=== PATIENT | female | born 1950 | race Caucasian/White ===

== ENCOUNTER 2021-01-30 08:46 | Inpatient (IN) | payer MEDICARE, MEDICAID, SELFPAY ==
[2021-01-30] VITALS (13 sets, daily range): BP systolic 92–141; BP diastolic 58–91; PULSE 64–98; RESP 14–26; TEMP 36.6–37.2; O2SAT 89–100; BMI 25.0
--- NOTE | ~2021-01-30 | XR_ITS ---
EXAMINATION: XR CHEST CLINICAL INFORMATION: Hypoxia COMPARISON: Previous chest x-rays most recent 02/09/2021 TECHNIQUE: Frontal view of the chest was obtained. FINDINGS: The cardiac silhouette is slightly enlarged. There is elevation of the right hemidiaphragm. There is loss of the left hemidiaphragm suggestive of increasing left lower lobe atelectasis or consolidation. There are new increased markings in the right perihilar region questionable for right-sided central infiltrate as well. There may be small pleural effusions. There is no pneumothorax. There are degenerative changes of diagnosis of the spine. XR/XR chest 1V IMPRESSION: Left lower lobe atelectasis/consolidation. Elevated right hemidiaphragm and right perihilar infiltrate.
--- NOTE | ~2021-01-30 | XR_ITS ---
EXAMINATION: XR CHEST CLINICAL INFORMATION: Hypoxic failure.. Change in respiratory status. COMPARISON: Chest 01/30/2021. TECHNIQUE: Frontal view of the chest was obtained. FINDINGS: The lungs are hypoexpanded with bibasilar patchy opacities, stable. The upper lungs are relatively clear. The heart size and pulmonary vascularity is normal. No gross acute bony abnormality seen. There is XR/XR chest 1V IMPRESSION: No change in bibasilar patchy opacities from previous exam.
--- NOTE | ~2021-01-30 | XR_ITS ---
EXAMINATION: XR CHEST CLINICAL INFORMATION: Shortness of breath. Covid positive. COMPARISON: None TECHNIQUE: AP portable view of the chest was obtained. FINDINGS: There appears to be bibasilar disease which may relate to atelectasis or pneumonitis. Heart normal size. No evidence of pulmonary edema. No pneumothorax. No significant pleural effusion appreciated. Status post decompressive surgery of the right clavicle. A 2 wire lead is seen overlying the upper mediastinum which may be related to temporary pacer or other overlying device. XR/XR chest 1V IMPRESSION: Bibasilar disease which may relate to atelectasis or pneumonitis.
--- NOTE | 2021-01-30 08:57 | ECG_ITS ---
Test Reason : shortness of breath Blood Pressure : / mmHG Vent. Rate : 093 BPM Atrial Rate : 093 BPM P-R Int : 144 ms QRS Dur : 088 ms QT Int : 376 ms P-R-T Axes : 065 -43 -21 degrees QTc Int : 467 ms Poor data quality Sinus rhythm Left axis deviation Abnormal ECG No previous ECGs available Referred By: Judi Menjivar Electronically Signed By:Thang Mckeon
[2021-01-30 09:08] LABS: Glucose, Whole Blood 70 mg/dL (60-115)
--- NOTE | 2021-01-30 09:10 | ED.SOB ---
HPI - SOB/Dyspnea General Chief Complaint: Dyspnea Stated Complaint: +COVID,LOW O2 SAT @ 50%,ON BIPAP @ 58 [facility] Time Seen by Provider: 01/30/21 08:56 Source: EMS Mode of arrival: EMS Limitations: altered mental status (respiratory distress) History of Present Illness HPI Narrative: 70 yo female from [facility] hx of PE on eliquis, alcohol buase, opiate dependence on multiple sedating medications including benzos, methadone, PRN oxycodone 911 was called for unresponsive person. Apparently there was a case of COVID at [facility] so Edilia was tested and asymptomatic she was positive on 01/25. This morning she was found unresponsive EMS noted saturations in the 60s. Placed on bipap and given duoneb en route she did improve en route J+J vaccine 08/29/20 MD elicited complaint: shortness of breath (AMS) Pertinent past history: PE Onset (ago): unknown Context: recent illness (COVID positive 01/28) Timing: improved Severity: severe Relieving factors: oxygen Associated symptoms: cough Treatment prior to arrival: oxygen (bipap en route) and bronchodilator Related Data Home Medications Medication Instructions Recorded Confirmed acetaminophen 325 mg tablet 650 mg PO Q6H PRN 01/30/21 01/30/21 albuterol sulfate 90 mcg/actuation 2 puff INHALATION Q4-6H PRN 01/30/21 01/30/21 aerosol inhaler alprazolam 0.5 mg tablet 0.5 mg PO Q8H PRN 01/30/21 01/30/21 aluminum-mag hydroxide-simethicone 30 ml PO Q4H PRN 01/30/21 01/30/21 200 mg-200 mg-20 mg/5 mL oral susp apixaban 5 mg tablet 5 mg PO BID 01/30/21 01/30/21 buspirone 5 mg tablet 5 mg PO TID 01/30/21 01/30/21 collagenase clostridium histo. 250 1 appl TOPICAL BEDTIME 01/30/21 01/30/21 unit/gram topical ointment (Santyl) duloxetine 60 mg capsule,delayed 60 mg PO DAILY 01/30/21 01/30/21 release gabapentin 100 mg capsule 500 mg PO TID 01/30/21 01/30/21 lamotrigine 100 mg tablet 100 mg PO BEDTIME 01/30/21 01/30/21 levothyroxine 50 mcg tablet 50 mcg PO DAILY@0600 01/30/21 01/30/21 lisinopril 5 mg tablet 2.5 mg PO DAILY 01/30/21 01/30/21 methadone 10 mg tablet 10 mg PO BID 01/30/21 01/30/21 methadone 10 mg tablet 10 mg PO DAILY PRN 01/30/21 01/30/21 mirtazapine 15 mg tablet (Remeron) 15 mg PO BEDTIME 01/30/21 01/30/21 oxycodone 5 mg tablet 5 mg PO Q6H PRN 01/30/21 01/30/21 polyethylene glycol 3350 17 gram 17 g PO DAILY 01/30/21 01/30/21 oral powder packet (Miralax) risperidone 2 mg tablet 2 mg PO BID 01/30/21 01/30/21 sennosides 8.6 mg tablet (senna) 17.2 mg PO DAILY 01/30/21 01/30/21 tiotropium bromide 2.5 2 puff INHALATION DAILY 01/30/21 01/30/21 mcg/actuation mist for inhalation (Spiriva Respimat) Allergies Allergy/AdvReac Type Severity Reaction Status Date / Time Unable to Assess Allergy Verified 01/30/21 08:57 Review of Systems Review of Systems: ROS unable to be obtained due to confusion and respiratory distress [facility] Past Medical History Source: nursing notes reviewed Medical History (Updated 01/30/21 @ 10:31 by Judi Menjivar DO) Alcoholism Falls Opiate dependence Pulmonary embolus Social History Social History (Updated 01/30/21 @ 09:14 by Judi Menjivar DO) Patient Tobacco Use Status: Former Tobacco user Use of substances other than those prescribed or required for medical reasons: No Advance Directives: No Advance Directives Information Provided: No Physical Exam Vital Signs: Vital Signs: Last Vital Signs Temp 97.9 F 01/30/21 10:01 Pulse 86 01/30/21 10:01 Resp 14 01/30/21 10:01 BP 141/82 H 01/30/21 10:01 Pulse Ox 98 01/30/21 10:01 BMI result Body Mass Index 25.0 Appearance: Alert. Oriented X2. Moderate acute distress. Eyes: Pupils equal, round and reactive to light. ENT: Pharynx normal. Neck: Normal inspection. Neck supple. CVS: Normal heart rate and rhythm. Pulses normal. Respiratory: Moderate respiratory distress - poor inspiratory effort. Breath sounds diminished and coarse throughout Abdomen: Soft and nontender. Skin: Skin warm and cool pale skin color. Normal skin turgor. Extremities: No lower extremity edema. No calf ttp Neuro: Oriented X 2. No motor deficit. No sensory deficit. Course Course Course Narrative: on hiflo at 10am will continue to reassess 100% patient looks much better at this time MDM - SOB/Dyspnea MDM Narrative Medical decision making narrative: 70 yo female with hx of ETOH abuse, opiate abuse, fall risks, ulcers, from [facility] - who reports they had some cases of COVID patient was asymptomatic swabbed on 01/25 found to be + this AM EMS called for unresponsive person - sats in 60s, placed on bipap improved en route she is full code, already on eliquis for PE, I do not see any other information in chart - records being requested - at this time labs, cultures, IV steroids, nebs, continued bipap will attempt hiflo if possible, CXR, EKG. Planned admit Lab Data Result diagrams: 01/30/21 09:19 01/30/21 09:18 Labs: Lab Results 01/30/21 01/30/21 01/30/21 Range/Units 08:52 09:18 09:18 WBC (4.8-10.8) X10*3/uL RBC (4.20-5.50) X10*6/uL Hgb (12.0-16.0) g/dl Hct (37.0-47.0) % MCV (80.0-98.0) fL MCH (27.0-33.0) pg MCHC (31.0-35.0) g/dl RDW (11.0-16.0) % Plt Count (160-400) X10*3/uL MPV (9.4-12.3) fL Immature Gran % (Auto) (0.0-0.4) % Neut % (Auto) (45-73) % Lymph % (Auto) (20-40) % [place] % (Auto) (2-11) % Eos % (Auto) (0-4) % Baso % (Auto) (0-2) % Lymph # (Auto) (1.2-4.9) X10*3/uL [place] # (Auto) (0.1-1.2) X10*3/uL Eos # (Auto) (0.0-0.4) X10*3/uL Baso # (Auto) (0.0-0.2) X10*3/uL Abs Immat Gran (auto) (0.00-0.03) X10*3/uL Absolute Neuts (auto) (2.0-8.3) x10*3/uL Absolute Nucleated RBC (0.0-0.012) X10*3/uL Nucleated RBC % (auto) (0.0-0.2) /100WBC PT (9.9-13.0) SEC INR (0.9-1.1) APTT (24.1-38.0) SEC D-Dimer High Sensitivty NG/ML VBG pH (7.32-7.43) VBG pCO2 mmHg VBG pO2 mmHg VBG HCO3 (22-26) mmol/L VBG O2 Saturation % VBG Base Excess mmol/L Sodium 146 H (135-145) mmol/L Potassium 4.4 (3.3-5.1) mmol/L Chloride 107 (96-108) mmol/L Carbon Dioxide 30 H (22-29) mmol/L Anion Gap 13 (12-20) BUN 18 H (9-16) mg/dL Creatinine 0.69 (0.5-1.4) mg/dL Estim Creat Clear Calc 69.2 Estimated GFR > 60 POC Glucose 70 (60-115) mg/dL Random Glucose 103 (60-115) mg/dL Lactic Acid 0.9 (0.5-2.0) mmol/L Calcium 8.1 L (8.4-10.2) mg/dL Magnesium 1.8 (1.6-2.6) mg/dL Ferritin 139 (10-250) ng/mL Total Bilirubin < 0.2 (0.0-1.0) mg/dL Direct Bilirubin < 0.2 (0.0-0.5) mg/dL AST 70 H (5-31) U/L ALT 29 (0-31) U/L Alkaline Phosphatase 80 (39-117) U/L Lactate Dehydrogenase 489 H (122-220) U/L Total Creatine Kinase 1192 H (26-140) U/L Troponin I High Sens (<3.5-17.0) ng/L C-Reactive Protein 6.78 H (< or = 0.50) mg/dL B-Natriuretic Peptide (<100) pg/mL Total Protein 5.6 L (6.5-8.0) g/dL Albumin 2.8 L (3.5-5.0) g/dL Lipase < 4 L (8-78) U/L Procalcitonin ng/mL COVID-19 (SILVIA) (Negative) COVID-19 Clin Com 01/30/21 01/30/21 01/30/21 Range/Units 09:18 09:18 09:18 WBC (4.8-10.8) X10*3/uL RBC (4.20-5.50) X10*6/uL Hgb (12.0-16.0) g/dl Hct (37.0-47.0) % MCV (80.0-98.0) fL MCH (27.0-33.0) pg MCHC (31.0-35.0) g/dl RDW (11.0-16.0) % Plt Count (160-400) X10*3/uL MPV (9.4-12.3) fL Immature Gran % (Auto) (0.0-0.4) % Neut % (Auto) (45-73) % Lymph % (Auto) (20-40) % [place] % (Auto) (2-11) % Eos % (Auto) (0-4) % Baso % (Auto) (0-2) % Lymph # (Auto) (1.2-4.9) X10*3/uL [place] # (Auto) (0.1-1.2) X10*3/uL Eos # (Auto) (0.0-0.4) X10*3/uL Baso # (Auto) (0.0-0.2) X10*3/uL Abs Immat Gran (auto) (0.00-0.03) X10*3/uL Absolute Neuts (auto) (2.0-8.3) x10*3/uL Absolute Nucleated RBC (0.0-0.012) X10*3/uL Nucleated RBC % (auto) (0.0-0.2) /100WBC PT 14.8 H (9.9-13.0) SEC INR 1.3 H (0.9-1.1) APTT 37.2 (24.1-38.0) SEC D-Dimer High Sensitivty 447 NG/ML VBG pH (7.32-7.43) VBG pCO2 mmHg VBG pO2 mmHg VBG HCO3 (22-26) mmol/L VBG O2 Saturation % VBG Base Excess mmol/L Sodium (135-145) mmol/L Potassium (3.3-5.1) mmol/L Chloride (96-108) mmol/L Carbon Dioxide (22-29) mmol/L Anion Gap (12-20) BUN (9-16) mg/dL Creatinine (0.5-1.4) mg/dL Estim Creat Clear Calc Estimated GFR POC Glucose (60-115) mg/dL Random Glucose (60-115) mg/dL Lactic Acid (0.5-2.0) mmol/L Calcium (8.4-10.2) mg/dL Magnesium (1.6-2.6) mg/dL Ferritin (10-250) ng/mL Total Bilirubin (0.0-1.0) mg/dL Direct Bilirubin (0.0-0.5) mg/dL AST (5-31) U/L ALT (0-31) U/L Alkaline Phosphatase (39-117) U/L Lactate Dehydrogenase (122-220) U/L Total Creatine Kinase (26-140) U/L Troponin I High Sens 184.9 H* (<3.5-17.0) ng/L C-Reactive Protein (< or = 0.50) mg/dL B-Natriuretic Peptide 163 H (<100) pg/mL Total Protein (6.5-8.0) g/dL Albumin (3.5-5.0) g/dL Lipase (8-78) U/L Procalcitonin ng/mL COVID-19 (SILVIA) Positive A (Negative) COVID-19 Clin Com See Note 01/30/21 01/30/21 01/30/21 Range/Units 09:18 09:19 10:22 WBC 5.7 (4.8-10.8) X10*3/uL RBC 4.22 (4.20-5.50) X10*6/uL Hgb 10.9 L (12.0-16.0) g/dl Hct 37.2 (37.0-47.0) % MCV 88.2 (80.0-98.0) fL MCH 25.8 L (27.0-33.0) pg MCHC 29.3 L (31.0-35.0) g/dl RDW 19.9 H (11.0-16.0) % Plt Count 152 L (160-400) X10*3/uL MPV 9.6 (9.4-12.3) fL Immature Gran % (Auto) 0.4 (0.0-0.4) % Neut % (Auto) 74.9 H (45-73) % Lymph % (Auto) 15.3 L (20-40) % [place] % (Auto) 9.2 (2-11) % Eos % (Auto) 0.0 (0-4) % Baso % (Auto) 0.2 (0-2) % Lymph # (Auto) 0.9 L (1.2-4.9) X10*3/uL [place] # (Auto) 0.5 (0.1-1.2) X10*3/uL Eos # (Auto) 0.0 (0.0-0.4) X10*3/uL Baso # (Auto) 0.0 (0.0-0.2) X10*3/uL Abs Immat Gran (auto) 0.02 (0.00-0.03) X10*3/uL Absolute Neuts (auto) 4.3 (2.0-8.3) x10*3/uL Absolute Nucleated RBC 0.000 (0.0-0.012) X10*3/uL Nucleated RBC % (auto) 0.0 (0.0-0.2) /100WBC PT (9.9-13.0) SEC INR (0.9-1.1) APTT (24.1-38.0) SEC D-Dimer High Sensitivty NG/ML VBG pH 7.46 H (7.32-7.43) VBG pCO2 48 mmHg VBG pO2 69 mmHg VBG HCO3 34 H (22-26) mmol/L VBG O2 Saturation 90.0 % VBG Base Excess 9.6 mmol/L Sodium (135-145) mmol/L Potassium (3.3-5.1) mmol/L Chloride (96-108) mmol/L Carbon Dioxide (22-29) mmol/L Anion Gap (12-20) BUN (9-16) mg/dL Creatinine (0.5-1.4) mg/dL Estim Creat Clear Calc Estimated GFR POC Glucose (60-115) mg/dL Random Glucose (60-115) mg/dL Lactic Acid (0.5-2.0) mmol/L Calcium (8.4-10.2) mg/dL Magnesium (1.6-2.6) mg/dL Ferritin (10-250) ng/mL Total Bilirubin (0.0-1.0) mg/dL Direct Bilirubin (0.0-0.5) mg/dL AST (5-31) U/L ALT (0-31) U/L Alkaline Phosphatase (39-117) U/L Lactate Dehydrogenase (122-220) U/L Total Creatine Kinase (26-140) U/L Troponin I High Sens (<3.5-17.0) ng/L C-Reactive Protein (< or = 0.50) mg/dL B-Natriuretic Peptide (<100) pg/mL Total Protein (6.5-8.0) g/dL Albumin (3.5-5.0) g/dL Lipase (8-78) U/L Procalcitonin 0.09 ng/mL COVID-19 (SILVIA) (Negative) COVID-19 Clin Com ECG Data Attestation: I personally reviewed and interpreted this ECG as follows: ECG interpretation date: 01/30/21 ECG interpretation time: 09:11 Interpretation: Rate: 93 Rhythm: NSR [place]: left Normal P waves. Normal ESTELA. Normal QRS complex. ST T wave : nonspecific, no STEPHANIE, but noted artifact qTC: normal prior studies: none The study has been interpreted contemporaneously by me. . Critical Care Time Critical Care Time Critical Care Time: Yes Total Critical Care Time: 60 Attestation: bipap, hiflo, review of records I attest to this time spent taking care of the patient Discharge Plan Discharge Clinical Impression: Pneumonia due to 2019-nCoV, Hypoxia, Respiratory failure, Elevated troponin Patient Disposition: Admitted As Inpatient
[2021-01-30] MEDS: Albuterol Sulfate (0.083%) 2.5 MG/3 ML VIAL.NEB INHALE (09:12)
--- NOTE | 2021-01-30 09:23 | MHC.CM.ED ---
Patient came to ER from [facility] due to resp distress. Patient was found to be Covid positive on 01/25. Patient is a full code. There was 1 resident and 1 employee that tested positive for Covid. Patient was screened for Covid due to protocol, not symptoms. Dr Menjivar aware. Continue to monitor for d/c needs.
[2021-01-30 09:29] LABS: MANUAL DIFF FLAG NO
[2021-01-30 09:32] LABS: Basophils Percent Auto 0.2 % (0-2); Hematocrit 37.2 % (37.0-47.0); Hemoglobin 10.9 g/dl (12.0-16.0); Imm Gran Abs Auto 0.02 X10*3/uL (0.00-0.03); Imm Gran Pct Auto 0.4 % (0.0-0.4); Lymphocytes Absolute Auto 0.9 X10*3/uL (1.2-4.9); Lymphocytes Percent Auto 15.3 % (20-40); Mean Corpuscular HGB Conc 29.3 g/dl (31.0-35.0); Mean Corpuscular Hemoglobin 25.8 pg (27.0-33.0); Mean Corpuscular Volume 88.2 fL (80.0-98.0); Mean Platelet Volume 9.6 fL (9.4-12.3); Monocytes Absolute Auto 0.5 X10*3/uL (0.1-1.2); Monocytes Percent Auto 9.2 % (2-11); Neutrophils Absolute Auto 4.3 x10*3/uL (2.0-8.3); Neutrophils Percent Auto 74.9 % (45-73); Platelet Count 152 X10*3/uL (160-400); Red Blood Count 4.22 X10*6/uL (4.20-5.50); Red Cell Distribution Width 19.9 % (11.0-16.0); White Blood Count 5.7 X10*3/uL (4.8-10.8)
--- NOTE | 2021-01-30 09:32 | PHA.MEDREC ---
Pharmacy Consult ? Medication Reconciliation Pharmacy has completed the medication reconciliation. Patient came from [facility] with a medication list. Lizbeth Schmidt, BlossomD
[2021-01-30] MEDS: dexAMETHasone sod phosphate 4 MG/ML VIAL 6 MG IVPUSH (09:36)
[2021-01-30 09:39] LABS: INTERNATIONAL NORM RATIO 1.3 (0.9-1.1); Lactic Acid 0.9 mmol/L (0.5-2.0); Prothrombin Time 14.8 SEC (9.9-13.0)
[2021-01-30 09:40] LABS: COVID-19 Test Positive (Negative); IDNOW Serial# 9DD0AD1C
[2021-01-30 09:41] LABS: D Dimer High Sensitivity 447 NG/ML
[2021-01-30 09:42] LABS: Partial Thromboplastin Time 37.2 SEC (24.1-38.0)
[2021-01-30 09:53] LABS: Alanine Aminotransferase 29 U/L (0-31); Albumin Level 2.8 g/dL (3.5-5.0); Alkaline Phosphatase 80 U/L (39-117); Anion Gap 13 (12-20); Aspartate Amino Transferase 70 U/L (5-31); Bilirubin Direct < 0.2 mg/dL (0.0-0.5); Bilirubin Total < 0.2 mg/dL (0.0-1.0); Blood Urea Nitrogen 18 mg/dL (9-16); C Reactive Protein 6.78 mg/dL (< or = 0.50); Calcium 8.1 mg/dL (8.4-10.2); Carbon Dioxide 30 mmol/L (22-29); Chloride 107 mmol/L (96-108); Creatinine Clr Calc Pharmacy 69.2; Estimated Glomerular Filt Rate > 60; Glucose Random 103 mg/dL (60-115); Lactate Dehydrogenase 489 U/L (122-220); Lipase < 4 U/L (8-78); Magnesium 1.8 mg/dL (1.6-2.6); Potassium 4.4 mmol/L (3.3-5.1); Sodium 146 mmol/L (135-145); Total Protein 5.6 g/dL (6.5-8.0)
[2021-01-30 09:54] LABS: B Type Natriuretic Peptide 163 pg/mL (<100); Troponin-I High Sensitivity 184.9 ng/L (<3.5-17.0)
[2021-01-30] MEDS: cefEPime HCl 2 GM in 0.9 % Sodium Chloride 50 ML IV (09:57)
[2021-01-30 10:02] LABS: Procalcitonin 0.09 ng/mL
[2021-01-30 10:03] LABS: Ferritin 139 ng/mL (10-250)
[2021-01-30 10:27] LABS: Venous Blood Gas Refer to POC result
[2021-01-30 10:28] LABS: VBG Base Excess 9.6 mmol/L; VBG HCO3 34 mmol/L (22-26); VBG pCO2 48 mmHg; VBG pH 7.46 (7.32-7.43); VBG pO2 69 mmHg
--- NOTE | 2021-01-30 15:12 | PM.IMHP ---
History of Present Illness Date of Service: 01/30/21 Chief Complaint: noted hypoxia 70F from [facility] was sent in after being found unresponsive. she had tested positive for covid on 01/25/21. at that time she was asymptomatic, on day of presentation she was noted to be unresponsive, EMS noted saturations in the 60s, she had been placed on bipap and improved. patient herself does have dementia and is a poor historian but denies any shortness of breath at this time. she knows where she is, but is unaware of why she is here. she was then transitioned from bipap to high flow and is now saturating 100%. Review of Systems Review of Systems: Constitutional: Denies fever, denies Chills Eyes: denies blurry vision ENT: denies sore throat CVS: denies chest pain Respiratory: Denies dyspnea GI: no abdominal pain : denies dysuria MSK: denies neck pain Skin: denies rash Neuro: denies specific motor weakness Psych: denies suicidal ideation Endocrine: denies heat/cold intolerance Hematologic: denies easy bleeding Allergy: denies hives [facility] Medical History (Updated 01/30/21 @ 14:01 by Toño Vargas MD) Alcoholism Falls Opiate dependence Pulmonary embolus Social History (Updated 01/30/21 @ 09:14 by Judi Menjivar DO) Patient Tobacco Use Status: Former Tobacco user Use of substances other than those prescribed or required for medical reasons: No Advance Directives: No Advance Directives Information Provided: No Meds Allergies Allergy/AdvReac Type Severity Reaction Status Date / Time Unable to Assess Allergy Verified 01/30/21 08:57 Active Medications: Current Medications Al Hydroxide/Mg Hydroxide (Magnesium Hydrox/Alum Hydrox 30 Ml Oral.Susp) 30 ml PO Q4H PRN PRN Reason: GERD Alprazolam (Alprazolam 0.5 Mg Tablet) 0.5 mg PO Q8H PRN PRN Reason: Anxiety Apixaban (Apixaban 5 Mg Tablet) 5 mg PO BID [facility] Buspirone HCl (Buspirone Hcl 5 Mg Tablet) 5 mg PO TID [facility] Collagenase (Collagenase Clostridium Hist. 30 Gm Tube) 1 appl TOPICAL BEDTIME [facility]; Protocol Dexamethasone Sodium Phosphate (Dexamethasone Sod Phosphate 4 Mg/Ml Vial) 6 mg IVPUSH DAILY [facility] Duloxetine HCl (Duloxetine Hcl 60 Mg Capsule.Dr) 60 mg PO DAILY [facility] Gabapentin (Gabapentin 100 Mg Capsule) 500 mg PO TID [facility] Lamotrigine (Lamotrigine 100 Mg Tablet) 100 mg PO BEDTIME [facility] Levothyroxine Sodium (Levothyroxine Sodium 50 Mcg Tablet) 50 mcg PO DAILY@0600 [facility] Lisinopril (Lisinopril 2.5 Mg Tablet) 2.5 mg PO DAILY [facility]; Protocol Methadone HCl (Methadone Hcl 10 Mg Tablet) 10 mg PO DAILY PRN PRN Reason: OPIOID ADDICATION Methadone HCl (Methadone Hcl 10 Mg Tablet) 10 mg PO BID [facility] Mirtazapine (Mirtazapine 15 Mg Tablet) 15 mg PO BEDTIME [facility] Non-Formulary Medication (Tiotropium [place] [Spiriva Respimat]) 2 puff INHALE DAILY [facility] Pharmacy Consult (Consult Rx Perform Med Rec) 1 each MISCELLANE ONCE PRN PRN Reason: Consult order Polyethylene Glycol (Polyethylene Glycol 3350 17 Gm Powd.Pack) 17 gm PO DAILY [facility] Risperidone (Risperidone 2 Mg Tablet) 2 mg PO BID [facility] Senna (Sennosides 8.6 Mg Tablet) 17.2 mg PO DAILY [facility] Home Medications Medication Instructions Recorded Confirmed Last Taken Type acetaminophen 325 mg tablet 650 mg PO Q6H PRN 01/30/21 01/30/21 Unknown History albuterol sulfate 90 mcg/actuation 2 puff INHALATION Q4-6H PRN 01/30/21 01/30/21 Unknown History aerosol inhaler alprazolam 0.5 mg tablet 0.5 mg PO Q8H PRN 01/30/21 01/30/21 Unknown History aluminum-mag hydroxide-simethicone 30 ml PO Q4H PRN 01/30/21 01/30/21 Unknown History 200 mg-200 mg-20 mg/5 mL oral susp apixaban 5 mg tablet 5 mg PO BID 01/30/21 01/30/21 Unknown History buspirone 5 mg tablet 5 mg PO TID 01/30/21 01/30/21 Unknown History collagenase clostridium histo. 250 1 appl TOPICAL BEDTIME 01/30/21 01/30/21 Unknown History unit/gram topical ointment (Santyl) duloxetine 60 mg capsule,delayed 60 mg PO DAILY 01/30/21 01/30/21 Unknown History release gabapentin 100 mg capsule 500 mg PO TID 01/30/21 01/30/21 Unknown History lamotrigine 100 mg tablet 100 mg PO BEDTIME 01/30/21 01/30/21 Unknown History levothyroxine 50 mcg tablet 50 mcg PO DAILY@0600 01/30/21 01/30/21 Unknown History lisinopril 5 mg tablet 2.5 mg PO DAILY 01/30/21 01/30/21 Unknown History methadone 10 mg tablet 10 mg PO BID 01/30/21 01/30/21 01/29/21 21:00 History methadone 10 mg tablet 10 mg PO DAILY PRN 01/30/21 01/30/21 Unknown History mirtazapine 15 mg tablet (Remeron) 15 mg PO BEDTIME 01/30/21 01/30/21 Unknown History oxycodone 5 mg tablet 5 mg PO Q6H PRN 01/30/21 01/30/21 Unknown History polyethylene glycol 3350 17 gram 17 g PO DAILY 01/30/21 01/30/21 Unknown History oral powder packet (Miralax) risperidone 2 mg tablet 2 mg PO BID 01/30/21 01/30/21 Unknown History sennosides 8.6 mg tablet (senna) 17.2 mg PO DAILY 01/30/21 01/30/21 Unknown History tiotropium bromide 2.5 2 puff INHALATION DAILY 01/30/21 01/30/21 Unknown History mcg/actuation mist for inhalation (Spiriva Respimat) Physical Exam Vital Signs and Narrative: Vital Signs: Last Vital Signs Temp 98.7 F 01/30/21 14:42 Pulse 84 01/30/21 14:42 Resp 18 01/30/21 15:01 BP 92/58 L 01/30/21 14:42 Pulse Ox 100 01/30/21 14:42 BMI result Body Mass Index 25.0 General: no acute distress HEENT: atraumatic Neck: normal to visual inspection CVS: S1, S2, RRR Resp: diminished Chest: non tender GI: soft, non tender, non distended : no CVA tenderness Skin: right heel pressure ulcer (see RN pictures) Extremities: no edema Neuro: Oriented X3, but poor memory and insight, no focal deficit Psych: cooperative Results Labs CBC and Chem 7: 01/30/21 09:19 01/30/21 09:18 Labs: Laboratory Results - last 24 hr 12/10/1301/30/21 01/30/21 08:52 09:18 09:18 MCV MCH MCHC RDW Plt Count MPV Immature Gran % (Auto) Neut % (Auto) Lymph % (Auto) [place] % (Auto) Eos % (Auto) Baso % (Auto) Lymph # (Auto) [place] # (Auto) Eos # (Auto) Baso # (Auto) Abs Immat Gran (auto) Absolute Neuts (auto) Absolute Nucleated RBC Nucleated RBC % (auto) PT INR APTT D-Dimer High Sensitivty VBG pH VBG pCO2 VBG pO2 VBG HCO3 VBG O2 Saturation VBG Base Excess Anion Gap 13 Estim Creat Clear Calc 69.2 Estimated GFR > 60 POC Glucose 70 Random Glucose 103 Lactic Acid 0.9 Calcium 8.1 L Magnesium 1.8 Ferritin 139 Total Bilirubin < 0.2 Direct Bilirubin < 0.2 AST 70 H ALT 29 Alkaline Phosphatase 80 Lactate Dehydrogenase 489 H Total Creatine Kinase 1192 H Troponin I High Sens C-Reactive Protein 6.78 H B-Natriuretic Peptide Total Protein 5.6 L Albumin 2.8 L Lipase < 4 L Procalcitonin COVID-19 (SILVIA) COVID-19 [email or web address] 01/30/21 01/30/21 01/30/21 09:18 09:18 09:18 MCV MCH MCHC RDW Plt Count MPV Immature Gran % (Auto) Neut % (Auto) Lymph % (Auto) [place] % (Auto) Eos % (Auto) Baso % (Auto) Lymph # (Auto) [place] # (Auto) Eos # (Auto) Baso # (Auto) Abs Immat Gran (auto) Absolute Neuts (auto) Absolute Nucleated RBC Nucleated RBC % (auto) PT 14.8 H INR 1.3 H APTT 37.2 D-Dimer High Sensitivty 447 VBG pH VBG pCO2 VBG pO2 VBG HCO3 VBG O2 Saturation VBG Base Excess Anion Gap Estim Creat Clear Calc Estimated GFR POC Glucose Random Glucose Lactic Acid Calcium Magnesium Ferritin Total Bilirubin Direct Bilirubin AST ALT Alkaline Phosphatase Lactate Dehydrogenase Total Creatine Kinase Troponin I High Sens 184.9 H* C-Reactive Protein B-Natriuretic Peptide 163 H Total Protein Albumin Lipase Procalcitonin COVID-19 (SILVIA) Positive A COVID-19 Clin Com See Note 01/30/21 01/30/21 01/30/21 09:18 09:19 10:22 MCV 88.2 MCH 25.8 L MCHC 29.3 L RDW 19.9 H Plt Count 152 L MPV 9.6 Immature Gran % (Auto) 0.4 Neut % (Auto) 74.9 H Lymph % (Auto) 15.3 L [place] % (Auto) 9.2 Eos % (Auto) 0.0 Baso % (Auto) 0.2 Lymph # (Auto) 0.9 L [place] # (Auto) 0.5 Eos # (Auto) 0.0 Baso # (Auto) 0.0 Abs Immat Gran (auto) 0.02 Absolute Neuts (auto) 4.3 Absolute Nucleated RBC 0.000 Nucleated RBC % (auto) 0.0 PT INR APTT D-Dimer High Sensitivty VBG pH 7.46 H VBG pCO2 48 VBG pO2 69 VBG HCO3 34 H VBG O2 Saturation 90.0 VBG Base Excess 9.6 Anion Gap Estim Creat Clear Calc Estimated GFR POC Glucose Random Glucose Lactic Acid Calcium Magnesium Ferritin Total Bilirubin Direct Bilirubin AST ALT Alkaline Phosphatase Lactate Dehydrogenase Total Creatine Kinase Troponin I High Sens C-Reactive Protein B-Natriuretic Peptide Total Protein Albumin Lipase Procalcitonin 0.09 COVID-19 (SILVIA) COVID-19 Clin Com Imaging Radiologist's Impressions: Impressions Chest X-Ray 01/30/21 09:40 IMPRESSION: Bibasilar disease which may relate to atelectasis or pneumonitis. Assessment and Plan (1) Pneumonia due to 2019-nCoV: Status: Acute 70F presented with sob acute hypoxic respiratory failure and metabolic encephalopathy due to covid pneumonia decadron, wean o2, monitor inflammatory labs dementia, likely chronic alochol related at baseline opiate dependence methadone history of pulmonary embolism eliquis hypothyroid synthroid htn lisinopril Quality Stroke Does the patient have a stroke diagnosis?: No VTE Prior VTE?: Yes VTE Risk Level:: Medical - moderate - high VTE Device Contraindication: Treatment Not Indicated VTE Drug Contraindication: N/A - Med Ordered
[2021-01-30] MEDS: 0.9 % Sodium Chloride Flush 3 ML SYRINGE IVFLUSH (16:19)
[2021-01-30] MEDS: lamoTRIgine 100 MG TABLET PO (21:57)
[2021-01-30] MEDS: busPIRone HCl 5 MG TABLET PO (21:58)
[2021-01-30] MEDS: Apixaban 5 MG TABLET PO (21:58)
[2021-01-30] MEDS: risperiDONE 2 MG TABLET PO (21:59)
[2021-01-30] MEDS: Gabapentin 100 MG CAPSULE 500 MG PO (22:00)
[2021-01-30] MEDS: Mirtazapine 15 MG TABLET PO (22:00)
[2021-01-31] VITALS (14 sets, daily range): BP systolic 95–148; BP diastolic 54–86; PULSE 54–100; RESP 11–20; TEMP 35.5–36.6; O2SAT 86–100; BMI 19.8
[2021-01-31] MEDS: 0.9 % Sodium Chloride Flush 3 ML SYRINGE IVFLUSH ×3 (01:22→21:59)
[2021-01-31 06:24] LABS: Hematocrit 34.2 % (37.0-47.0); Hemoglobin 9.8 g/dl (12.0-16.0); Mean Corpuscular HGB Conc 28.7 g/dl (31.0-35.0); Mean Corpuscular Hemoglobin 25.5 pg (27.0-33.0); Mean Corpuscular Volume 89.1 fL (80.0-98.0); Mean Platelet Volume 9.8 fL (9.4-12.3); Platelet Count 142 X10*3/uL (160-400); Red Blood Count 3.84 X10*6/uL (4.20-5.50); Red Cell Distribution Width 19.5 % (11.0-16.0); White Blood Count 3.6 X10*3/uL (4.8-10.8)
[2021-01-31 06:39] LABS: Anion Gap 10 (12-20); Blood Urea Nitrogen 17 mg/dL (9-16); C Reactive Protein 7.21 mg/dL (< or = 0.50); Calcium 8.2 mg/dL (8.4-10.2); Carbon Dioxide 35 mmol/L (22-29); Chloride 106 mmol/L (96-108); Creatinine Clr Calc Pharmacy 78.3; Estimated Glomerular Filt Rate > 60; Glucose Fasting 112 mg/dL (60-99); Lactate Dehydrogenase 406 U/L (122-220); Potassium 4.3 mmol/L (3.3-5.1); Sodium 147 mmol/L (135-145)
[2021-01-31 06:59] LABS: D Dimer High Sensitivity 279 NG/ML
--- NOTE | 2021-01-31 09:27 | MHC.CM.PN ---
IMM 01/31/21 Female 70 DX COVID J+J VAX 08/29/20 She lives @ [facility]. Her nephew is her HCP and Guardian. She is alert oriented and forgetful. She is dependent with care. She uses a WC for safety, fall prevention. DP return to [facility] via BLS.
[2021-01-31] MEDS: Dextrose 5 % 1,000 ML 80 ML IVCONT (09:51)
[2021-01-31] MEDS: DULoxetine HCl 60 MG CAPSULE.DR PO (09:52)
[2021-01-31] MEDS: Gabapentin 100 MG CAPSULE 500 MG PO ×3 (09:52→21:59)
[2021-01-31] MEDS: dexAMETHasone sod phosphate 4 MG/ML VIAL 6 MG IVPUSH (09:52)
[2021-01-31] MEDS: risperiDONE 2 MG TABLET PO ×2 (09:52→21:58)
[2021-01-31] MEDS: Sennosides 8.6 MG TABLET 17.2 MG PO (09:52)
[2021-01-31] MEDS: Apixaban 5 MG TABLET PO ×2 (09:52→21:58)
[2021-01-31] MEDS: methADONE HCl 20 MG/2 ML ORAL.CONC 10 MG PO ×2 (09:53→21:59)
[2021-01-31] MEDS: lisinopriL 2.5 MG TABLET PO (09:53)
[2021-01-31] MEDS: busPIRone HCl 5 MG TABLET PO ×3 (09:54→21:58)
--- NOTE | 2021-01-31 10:15 | PHA.PROG ---
Admission Date/Time: January 30, 2021 15:12 Indication: Weight in k.2 kg Adjusted body weight in Kg: [place] body weight in Kg: Obesity Dosing Indication % IBW: Serum Creatinine - Last 168 Hours 01/30/21 01/31/21 09:18 06:09 Creatinine 0.69 0.58 Estimated CrCl and GFR - Last 168 Hours 01/30/21 01/31/21 09:18 06:09 Estim Creat Clear Calc 69.2 78.3 Estimated GFR > 60 > 60 Vancomycin Loading Dose: 1250MG Current Vancomycin Dosing Regimen: 1000MG Q24H Vancomycin Monitoring using AUC goal of 400 - 600 range with trough as surrogate marker: AUC 463, TROUGH 13.5 Date and Time for next Vancomycin Level to be drawn: 02/02 @0900: Pharmacist Comments on Vancomycin Plan: Loading dose chosen to get patient to target AUC faster Vancomycin dosing will take advantage of [employer] as a clinical decision support tool that uses Bayesian modeling to calculate individual patient's pharmacokinetic parameters and forecast the patient's drug concentration time course with the target goal AUC 24 range of 400 - 600 mg/L/hr.
[2021-01-31] MEDS: vancomycin HCL 1,250 MG in 0.9 % Sodium Chloride 250 ML 166.67 MG IV (10:22)
--- NOTE | 2021-01-31 10:45 | P.PNIM_ITS ---
Subjective Subjective Date of Service: 01/31/21 Interval History: cc: ams, hypoxia interval history: sob, heel pain Cardiovascular Cardiovascular: Reports no additional cardiovascular complaints Respiratory Respiratory: Reports no additional respiratory complaints Physical Exam Vital Signs: Vital Signs: Last Vital Signs Temp 96 F L 01/31/21 07:06 Pulse 58 01/31/21 09:53 Resp 18 01/31/21 07:33 BP 122/71 01/31/21 09:53 Pulse Ox 91 L 01/31/21 07:06 BMI result Body Mass Index 19.8 General: AO X 3, anxious, frail Resp: Crackles bilateral, mild accessory muscles used CVS: S1,S2,RRR GI: soft, non tender, non distended Neuro: motor grossly intact, alert Psych: anxious, impaired insight, poor recall skin: right heel ulcer (present on admission) Objective Data Active Medications Al Hydroxide/Mg Hydroxide (Magnesium Hydrox/Alum Hydrox 30 Ml Oral.Susp) 30 ml PO Q4H PRN PRN Reason: GERD Alprazolam (Alprazolam 0.5 Mg Tablet) 0.5 mg PO Q8H PRN PRN Reason: Anxiety Apixaban (Apixaban 5 Mg Tablet) 5 mg PO BID [facility] Last Admin: 01/31/21 09:52 Dose: 5 mg Documented by: IRAJ Buspirone HCl (Buspirone Hcl 5 Mg Tablet) 5 mg PO TID [facility] Last Admin: 01/31/21 09:54 Dose: 5 mg Documented by: IRAJ Collagenase (Collagenase Clostridium Hist. 30 Gm Tube) 1 appl TOPICAL BEDTIME [facility]; Protocol Last Admin: 01/30/21 21:58 Dose: Not Given Documented by: HUMAIRA Non-Admin Reason: See Note Dexamethasone Sodium Phosphate (Dexamethasone Sod Phosphate 4 Mg/Ml Vial) 6 mg IVPUSH DAILY [facility] Last Admin: 01/31/21 09:52 Dose: 6 mg Documented by: IRAJ Duloxetine HCl (Duloxetine Hcl 60 Mg Capsule.) 60 mg PO DAILY [facility] Last Admin: 01/31/21 09:52 Dose: 60 mg Documented by: IRAJ Gabapentin (Gabapentin 100 Mg Capsule) 500 mg PO TID [facility] Last Admin: 01/31/21 09:52 Dose: 500 mg Documented by: IRAJ Dextrose (D5w) 1,000 mls @ 80 mls/hr IVCONT .[id number] [facility] Last Admin: 01/31/21 09:51 Dose: 80 mls/hr Documented by: IRAJ Vancomycin HCl 1,250 mg/ (Sodium Chloride) 250 mls @ 166.667 mls/hr IV ONCE ONE Stop: 01/31/21 12:29 Last Admin: 01/31/21 10:22 Dose: 166.67 mls/hr Documented by: IRAJ Vancomycin HCl 1,000 mg/ (Sodium Chloride) 270 mls @ 270 mls/hr IV Q24H [facility] Lamotrigine (Lamotrigine 100 Mg Tablet) 100 mg PO BEDTIME [facility] Last Admin: 01/30/21 21:57 Dose: 100 mg Documented by: HUMAIRA Levothyroxine Sodium (Levothyroxine Sodium 50 Mcg Tablet) 50 mcg PO DAILY@0600 [facility] Last Admin: 01/31/21 06:34 Dose: Not Given Documented by: ORLANDO Non-Admin Reason: too sleepy to swallow safely Lisinopril (Lisinopril 2.5 Mg Tablet) 2.5 mg PO DAILY [facility]; Protocol Last Admin: 01/31/21 09:53 Dose: 2.5 mg Documented by: IRAJ Methadone HCl (Methadone Hcl 20 Mg/2 Ml Oral.Conc) 10 mg PO DAILY PRN PRN Reason: OPIOID ADDICATION Methadone HCl (Methadone Hcl 20 Mg/2 Ml Oral.Conc) 10 mg PO BID [facility] Last Admin: 01/31/21 09:53 Dose: 10 mg Documented by: IRAJ Mirtazapine (Mirtazapine 15 Mg Tablet) 15 mg PO BEDTIME [facility] Last Admin: 01/30/21 22:00 Dose: 15 mg Documented by: HUMAIRA Pharmacy Consult (Consult Rx Perform Med Rec) 1 each MISCELLANE ONCE PRN PRN Reason: Consult order Pharmacy Consult (Consult Rx Vancomycin Dosing) 1 each MISCELLANE DAILY PRN PRN Reason: Consult order Polyethylene Glycol (Polyethylene Glycol 3350 17 Gm Powd.Pack) 17 gm PO DAILY [facility] Last Admin: 01/31/21 09:53 Dose: Not Given Documented by: IRAJ Non-Admin Reason: Patient Refused Risperidone (Risperidone 2 Mg Tablet) 2 mg PO BID [facility] Last Admin: 01/31/21 09:52 Dose: 2 mg Documented by: IRAJ Senna (Sennosides 8.6 Mg Tablet) 17.2 mg PO DAILY [facility] Last Admin: 01/31/21 09:52 Dose: 17.2 mg Documented by: IRAJ Sodium Chloride (0.9 % Sodium Chloride Flush 3 Ml Syringe) 3 ml IVFLUSH QSHIFT [facility] Last Admin: 01/31/21 09:51 Dose: 3 ml Documented by: IRAJ Tiotropium [place] (Tiotropium [place] 18 Mcg Cap.W.Dev) 2 puff INHALE RDAILY [facility] Last Admin: 01/31/21 07:28 Dose: Not Given Documented by: MIGDALIA Non-Admin Reason: Med Not Available Labs CBC & Chem 7: 01/31/21 06:09 01/31/21 06:09 Labs: Laboratory Results - last 24 hr 01/31/21 01/31/21 01/31/21 06:09 06:09 06:09 MCV 89.1 MCH 25.5 L MCHC 28.7 L RDW 19.5 H Plt Count 142 L MPV 9.8 Absolute Nucleated RBC 0.000 Nucleated RBC % (auto) 0.0 D-Dimer High Sensitivty 279 Anion Gap 10 L Estim Creat Clear Calc 78.3 Estimated GFR > 60 Fasting Glucose 112 H Calcium 8.2 L Lactate Dehydrogenase 406 H C-Reactive Protein 7.21 H Microbiology Microbiology Results: Microbiology 01/30/21 09:35 Blood Culture - Preliminary Blood - Venous Prelim: GPC Gram Stain only 01/30/21 09:18 Blood Culture - Preliminary Blood - Venous Prelim: GPC Gram Stain only Assessment and Plan (1) Pneumonia due to 2019-nCoV: Status: Acute Assessment and Plan: ?70F with known covid, found to be unresponsive, hypoxic, and painful right heel ulcer, now with GPC in blood acute hypoxic respiratory failure and metabolic encephalopathy due to covid pneumonia decadron day 2, wean o2 as tolerated infected right heel ulcer with gram positive bacteremia vancomycin, surgery and ID eval follow up repeat cultures dementia, likely chronic alochol related at baseline opiate dependence methadone history of pulmonary embolism eliquis hypothyroid synthroid htn lisinopril Quality Stroke Does the patient have a stroke diagnosis?: No VTE Prior VTE?: Yes VTE Risk Level:: Medical - moderate - high VTE Device Contraindication: Treatment Not Indicated VTE Drug Contraindication: N/A - Med Ordered
--- NOTE | 2021-01-31 12:46 | PM.CNGS ---
History of Present Illness Consult details Consult date: 01/31/21 Requesting physician: Toño Vargas Narrative: 70-year-old female [facility] found to be unresponsive, sent to emergency department by EMS. She was found to have O2 saturations of 60% and subsequently placed on BiPAP. Patient has an underlying dementia and was recently diagnosed with COVID-19. She is admitted to the hospitalist service for further management and found to have an ulceration in the right heel. Surgical consultation was requested for wound management. She is currently on apixaban 5 mg p.o. b.i.d.. Review of Systems Review of Systems: Yes Unobtainable due to mental status PMFSH Past Medical History Medical History Alcoholism Falls Opiate dependence Pulmonary embolus Social History Social History Household Members: Other Housing: [facility] Do you presently have visiting nurse or other home services: No Unable to assess alcohol history related to: Unable to respond and Unknown Patient Tobacco Use Status: Former Tobacco user Tobacco use type: Cigarette service: No Current occupational status: retired [employer] Allergies Allergy/AdvReac Type Severity Reaction Status Date / Time Unable to Assess Allergy Verified 01/30/21 08:57 Active Medications: Current Medications Al Hydroxide/Mg Hydroxide (Magnesium Hydrox/Alum Hydrox 30 Ml Oral.Susp) 30 ml PO Q4H PRN PRN Reason: GERD Alprazolam (Alprazolam 0.5 Mg Tablet) 0.5 mg PO Q8H PRN PRN Reason: Anxiety Apixaban (Apixaban 5 Mg Tablet) 5 mg PO BID [facility] Last Admin: 01/31/21 09:52 Dose: 5 mg Documented by: Buspirone HCl (Buspirone Hcl 5 Mg Tablet) 5 mg PO TID [facility] Last Admin: 01/31/21 09:54 Dose: 5 mg Documented by: Collagenase (Collagenase Clostridium Hist. 30 Gm Tube) 1 appl TOPICAL BEDTIME [facility]; Protocol Last Admin: 01/30/21 21:58 Dose: Not Given Documented by: Dexamethasone Sodium Phosphate (Dexamethasone Sod Phosphate 4 Mg/Ml Vial) 6 mg IVPUSH DAILY [facility] Last Admin: 01/31/21 09:52 Dose: 6 mg Documented by: Duloxetine HCl (Duloxetine Hcl 60 Mg Capsule.Dr) 60 mg PO DAILY [facility] Last Admin: 01/31/21 09:52 Dose: 60 mg Documented by: Gabapentin (Gabapentin 100 Mg Capsule) 500 mg PO TID [facility] Last Admin: 01/31/21 09:52 Dose: 500 mg Documented by: Dextrose (D5w) 1,000 mls @ 80 mls/hr IVCONT .[id number] [facility] Last Admin: 01/31/21 09:51 Dose: 80 mls/hr Documented by: Vancomycin HCl 1,000 mg/ (Sodium Chloride) 270 mls @ 270 mls/hr IV Q24H [facility] Lamotrigine (Lamotrigine 100 Mg Tablet) 100 mg PO BEDTIME [facility] Last Admin: 01/30/21 21:57 Dose: 100 mg Documented by: Levothyroxine Sodium (Levothyroxine Sodium 50 Mcg Tablet) 50 mcg PO DAILY@0600 [facility] Last Admin: 01/31/21 06:34 Dose: Not Given Documented by: Lisinopril (Lisinopril 2.5 Mg Tablet) 2.5 mg PO DAILY [facility]; Protocol Last Admin: 01/31/21 09:53 Dose: 2.5 mg Documented by: Methadone HCl (Methadone Hcl 20 Mg/2 Ml Oral.Conc) 10 mg PO DAILY PRN PRN Reason: OPIOID ADDICATION Methadone HCl (Methadone Hcl 20 Mg/2 Ml Oral.Conc) 10 mg PO BID [facility] Last Admin: 01/31/21 09:53 Dose: 10 mg Documented by: Mirtazapine (Mirtazapine 15 Mg Tablet) 15 mg PO BEDTIME [facility] Last Admin: 01/30/21 22:00 Dose: 15 mg Documented by: Pharmacy Consult (Consult Rx Perform Med Rec) 1 each MISCELLANE ONCE PRN PRN Reason: Consult order Pharmacy Consult (Consult Rx Vancomycin Dosing) 1 each MISCELLANE DAILY PRN PRN Reason: Consult order Polyethylene Glycol (Polyethylene Glycol 3350 17 Gm Powd.Pack) 17 gm PO DAILY [facility] Last Admin: 01/31/21 09:53 Dose: Not Given Documented by: Risperidone (Risperidone 2 Mg Tablet) 2 mg PO BID [facility] Last Admin: 01/31/21 09:52 Dose: 2 mg Documented by: Senna (Sennosides 8.6 Mg Tablet) 17.2 mg PO DAILY [facility] Last Admin: 01/31/21 09:52 Dose: 17.2 mg Documented by: Sodium Chloride (0.9 % Sodium Chloride Flush 3 Ml Syringe) 3 ml IVFLUSH QSHIFT [facility] Last Admin: 01/31/21 09:51 Dose: 3 ml Documented by: Tiotropium [place] (Tiotropium [place] 18 Mcg Cap.W.Dev) 2 puff INHALE RDAILY [facility] Last Admin: 01/31/21 07:28 Dose: Not Given Documented by: Home Medications Medication Instructions Recorded Confirmed Last Taken Type acetaminophen 325 mg tablet 650 mg PO Q6H PRN 01/30/21 01/30/21 Unknown History albuterol sulfate 90 mcg/actuation 2 puff INHALATION Q4-6H PRN 01/30/21 01/30/21 Unknown History aerosol inhaler alprazolam 0.5 mg tablet 0.5 mg PO Q8H PRN 01/30/21 01/30/21 Unknown History aluminum-mag hydroxide-simethicone 30 ml PO Q4H PRN 01/30/21 01/30/21 Unknown History 200 mg-200 mg-20 mg/5 mL oral susp apixaban 5 mg tablet 5 mg PO BID 01/30/21 01/30/21 Unknown History buspirone 5 mg tablet 5 mg PO TID 01/30/21 01/30/21 Unknown History collagenase clostridium histo. 250 1 appl TOPICAL BEDTIME 01/30/21 01/30/21 Unknown History unit/gram topical ointment (Santyl) duloxetine 60 mg capsule,delayed 60 mg PO DAILY 01/30/21 01/30/21 Unknown History release gabapentin 100 mg capsule 500 mg PO TID 01/30/21 01/30/21 Unknown History lamotrigine 100 mg tablet 100 mg PO BEDTIME 01/30/21 01/30/21 Unknown History levothyroxine 50 mcg tablet 50 mcg PO DAILY@0600 01/30/21 01/30/21 Unknown History lisinopril 5 mg tablet 2.5 mg PO DAILY 01/30/21 01/30/21 Unknown History methadone 10 mg tablet 10 mg PO BID 01/30/21 01/30/21 01/29/21 21:00 History methadone 10 mg tablet 10 mg PO DAILY PRN 01/30/21 01/30/21 Unknown History mirtazapine 15 mg tablet (Remeron) 15 mg PO BEDTIME 01/30/21 01/30/21 Unknown History oxycodone 5 mg tablet 5 mg PO Q6H PRN 01/30/21 01/30/21 Unknown History polyethylene glycol 3350 17 gram 17 g PO DAILY 01/30/21 01/30/21 Unknown History oral powder packet (Miralax) risperidone 2 mg tablet 2 mg PO BID 01/30/21 01/30/21 Unknown History sennosides 8.6 mg tablet (senna) 17.2 mg PO DAILY 01/30/21 01/30/21 Unknown History tiotropium bromide 2.5 2 puff INHALATION DAILY 01/30/21 01/30/21 Unknown History mcg/actuation mist for inhalation (Spiriva Respimat) Physical Exam Vital Signs: Vital Signs: Last Vital Signs Temp 98 F 01/31/21 11:00 Pulse 74 01/31/21 11:00 Resp 18 01/31/21 11:26 BP 148/72 H 01/31/21 11:00 Pulse Ox 91 L 01/31/21 11:00 BMI result Body Mass Index 19.8 Const: General: patient obtunded Nutritional Appearance: thin Orientation/consciousness: patient obtunded Limitations: altered mental status HENMT: Head: Yes normocephalic and Yes atraumatic Resp: Effort & Inspection: normal respiratory effort, no audible wheezes and no cough Skin: Other: Warm, dry, no rash Neuro: General: patient obtunded Extrem: Other: Right heel with a 2 cm round area of pressure ulceration covered with a foam dressing. Ulceration base reveals some necrotic tissue which would probably benefit from debridement. The surrounding skin however is clean without erythema. There is no evidence of an underlying abscess. The toes are warm with brisk capillary refill. Ankle/foot/toe images: 1. Site of ulceration right heel Results Labs Result diagrams: 01/31/21 06:09 01/31/21 06:09 Labs: Abnormal lab results 01/31/21 01/31/21 Range/Units 06:09 06:09 WBC 3.6 L (4.8-10.8) X10*3/uL RBC 3.84 L (4.20-5.50) X10*6/uL Hgb 9.8 L (12.0-16.0) g/dl Hct 34.2 L (37.0-47.0) % MCH 25.5 L (27.0-33.0) pg MCHC 28.7 L (31.0-35.0) g/dl RDW 19.5 H (11.0-16.0) % Plt Count 142 L (160-400) X10*3/uL Sodium 147 H (135-145) mmol/L Carbon Dioxide 35 H (22-29) mmol/L Anion Gap 10 L (12-20) BUN 17 H (9-16) mg/dL Fasting Glucose 112 H (60-99) mg/dL Calcium 8.2 L (8.4-10.2) mg/dL Lactate Dehydrogenase 406 H (122-220) U/L C-Reactive Protein 7.21 H (< or = 0.50) mg/dL Short CBC 01/31/21 Range/Units 06:09 WBC 3.6 L (4.8-10.8) X10*3/uL Hgb 9.8 L (12.0-16.0) g/dl Hct 34.2 L (37.0-47.0) % Plt Count 142 L (160-400) X10*3/uL BMP 01/31/21 06:09 Sodium 147 H Potassium 4.3 Chloride 106 Carbon Dioxide 35 H BUN 17 H Creatinine 0.58 Calcium 8.2 L All other labs normal. Assessment and Plan (1) Healed ulcer of right foot: Status: Acute 70-year-old female patient presenting to the medical service for mental status changes and respiratory distress, found to have ulceration of the right heel. Examination reveals a punched-out area consistent with pressure necrosis. There is no underlying abscess appreciated. I will return tomorrow to debride the necrotic tissue at the base. All pressure should be kept off the heel at all times. Procedures Date of Service Date of Service: 01/31/21
[2021-01-31] MEDS: Mirtazapine 15 MG TABLET PO (21:58)
[2021-01-31] MEDS: lamoTRIgine 100 MG TABLET PO (21:58)
[2021-02-01] VITALS (12 sets, daily range): BP systolic 95–110; BP diastolic 59–69; PULSE 61–98; RESP 20–22; TEMP 36.1–36.6; O2SAT 90–98
[2021-02-01] MEDS: Dextrose 5 % 1,000 ML 80 ML IVCONT (02:11)
[2021-02-01] MEDS: Levothyroxine Sodium 50 MCG TABLET PO (05:08)
[2021-02-01 06:31] LABS: Hematocrit 33.8 % (37.0-47.0); Hemoglobin 9.7 g/dl (12.0-16.0); Mean Corpuscular HGB Conc 28.7 g/dl (31.0-35.0); Mean Corpuscular Hemoglobin 25.9 pg (27.0-33.0); Mean Corpuscular Volume 90.4 fL (80.0-98.0); Mean Platelet Volume 10.2 fL (9.4-12.3); Platelet Count 173 X10*3/uL (160-400); Red Blood Count 3.74 X10*6/uL (4.20-5.50); Red Cell Distribution Width 18.9 % (11.0-16.0); White Blood Count 4.1 X10*3/uL (4.8-10.8)
[2021-02-01 07:20] LABS: Anion Gap 9 (12-20); Blood Urea Nitrogen 17 mg/dL (9-16); Calcium 8.1 mg/dL (8.4-10.2); Carbon Dioxide 35 mmol/L (22-29); Chloride 102 mmol/L (96-108); Creatinine Clr Calc Pharmacy 82.5; Estimated Glomerular Filt Rate > 60; Glucose Fasting 116 mg/dL (60-99); Potassium 4.7 mmol/L (3.3-5.1); Sodium 141 mmol/L (135-145)
[2021-02-01] MEDS: Gabapentin 100 MG CAPSULE 500 MG PO ×3 (09:51→21:00)
[2021-02-01] MEDS: busPIRone HCl 5 MG TABLET PO ×3 (09:51→21:00)
[2021-02-01] MEDS: DULoxetine HCl 60 MG CAPSULE.DR PO (09:51)
[2021-02-01] MEDS: risperiDONE 2 MG TABLET PO ×2 (09:51→21:00)
[2021-02-01] MEDS: methADONE HCl 20 MG/2 ML ORAL.CONC 10 MG PO ×2 (09:51→21:00)
[2021-02-01] MEDS: Sennosides 8.6 MG TABLET 17.2 MG PO (09:51)
[2021-02-01] MEDS: Apixaban 5 MG TABLET PO ×2 (09:51→21:00)
[2021-02-01] MEDS: dexAMETHasone sod phosphate 4 MG/ML VIAL 6 MG IVPUSH (09:52)
[2021-02-01] MEDS: 0.9 % Sodium Chloride Flush 3 ML SYRINGE IVFLUSH ×3 (09:52→21:01)
--- NOTE | 2021-02-01 10:04 | MHC.CM.PN ---
Patient is not yet medically cleared for dc (High Flow O2, IV Decadron, IV Vanco). Returning to [facility] @ [facility] is the plan and CM will continue to follow.
--- NOTE | 2021-02-01 10:19 | P.PNIM_ITS ---
Subjective Subjective Date of Service: 02/01/21 Interval History: cc: ams, hypoxia interval history: sob, heel pain Cardiovascular Cardiovascular: Reports no additional cardiovascular complaints Respiratory Respiratory: Reports no additional respiratory complaints Physical Exam Vital Signs: Vital Signs: Last Vital Signs Temp 97.1 F 02/01/21 07:58 Pulse 61 02/01/21 07:58 Resp 20 02/01/21 08:26 BP 110/66 02/01/21 07:58 Pulse Ox 98 02/01/21 07:58 BMI result Body Mass Index 19.8 General: AO X 3, anxious, frail Resp:? Crackles bilateral, mild accessory muscles used CVS: S1,S2,RRR GI: soft, non tender, non distended Neuro:? motor grossly intact, alert Psych: anxious, impaired insight, poor recall skin: right heel ulcer (present on admission) Objective Data Active Medications Al Hydroxide/Mg Hydroxide (Magnesium Hydrox/Alum Hydrox 30 Ml Oral.Susp) 30 ml PO Q4H PRN PRN Reason: GERD Alprazolam (Alprazolam 0.5 Mg Tablet) 0.5 mg PO Q8H PRN PRN Reason: Anxiety Apixaban (Apixaban 5 Mg Tablet) 5 mg PO BID [facility] Last Admin: 02/01/21 09:51 Dose: 5 mg Documented by: IRAJ Buspirone HCl (Buspirone Hcl 5 Mg Tablet) 5 mg PO TID [facility] Last Admin: 02/01/21 09:51 Dose: 5 mg Documented by: IRAJ Collagenase (Collagenase Clostridium Hist. 30 Gm Tube) 1 appl TOPICAL BEDTIME [facility]; Protocol Last Admin: 01/31/21 21:59 Dose: Not Given Documented by: NICOLE Non-Admin Reason: Med Not Available Dexamethasone Sodium Phosphate (Dexamethasone Sod Phosphate 4 Mg/Ml Vial) 6 mg IVPUSH DAILY [facility] Last Admin: 02/01/21 09:52 Dose: 6 mg Documented by: IRAJ Duloxetine HCl (Duloxetine Hcl 60 Mg Capsule.) 60 mg PO DAILY [facility] Last Admin: 02/01/21 09:51 Dose: 60 mg Documented by: IRAJ Gabapentin (Gabapentin 100 Mg Capsule) 500 mg PO TID [facility] Last Admin: 02/01/21 09:51 Dose: 500 mg Documented by: IRAJ Vancomycin HCl 1,000 mg/ (Sodium Chloride) 270 mls @ 270 mls/hr IV Q24H [facility] Lamotrigine (Lamotrigine 100 Mg Tablet) 100 mg PO BEDTIME [facility] Last Admin: 01/31/21 21:58 Dose: 100 mg Documented by: NICOLE Levothyroxine Sodium (Levothyroxine Sodium 50 Mcg Tablet) 50 mcg PO DAILY@0600 [facility] Last Admin: 02/01/21 05:08 Dose: 50 mcg Documented by: NICOLE Lisinopril (Lisinopril 2.5 Mg Tablet) 2.5 mg PO DAILY [facility]; Protocol Last Admin: 02/01/21 09:51 Dose: Not Given Documented by: IRAJ Non-Admin Reason: bradycardic Methadone HCl (Methadone Hcl 20 Mg/2 Ml Oral.Conc) 10 mg PO DAILY PRN PRN Reason: OPIOID ADDICATION Methadone HCl (Methadone Hcl 20 Mg/2 Ml Oral.Conc) 10 mg PO BID [facility] Last Admin: 02/01/21 09:51 Dose: 10 mg Documented by: IRAJ Mirtazapine (Mirtazapine 15 Mg Tablet) 15 mg PO BEDTIME [facility] Last Admin: 01/31/21 21:58 Dose: 15 mg Documented by: NICOLE Pharmacy Consult (Consult Rx Perform Med Rec) 1 each MISCELLANE ONCE PRN PRN Reason: Consult order Pharmacy Consult (Consult Rx Vancomycin Dosing) 1 each MISCELLANE DAILY PRN PRN Reason: Consult order Polyethylene Glycol (Polyethylene Glycol 3350 17 Gm Powd.Pack) 17 gm PO DAILY [facility] Last Admin: 02/01/21 09:52 Dose: Not Given Documented by: IRAJ Non-Admin Reason: Patient Refused Risperidone (Risperidone 2 Mg Tablet) 2 mg PO BID [facility] Last Admin: 02/01/21 09:51 Dose: 2 mg Documented by: IRAJ Senna (Sennosides 8.6 Mg Tablet) 17.2 mg PO DAILY [facility] Last Admin: 02/01/21 09:51 Dose: 17.2 mg Documented by: IRAJ Sodium Chloride (0.9 % Sodium Chloride Flush 3 Ml Syringe) 3 ml IVFLUSH QSHIFT [facility] Last Admin: 02/01/21 09:52 Dose: 3 ml Documented by: IRAJ Tiotropium [place] (Tiotropium [place] 18 Mcg Cap.W.Dev) 2 puff INHALE RDAILY [facility] Last Admin: 02/01/21 08:25 Dose: 2 puff Documented by: MARTÍN Labs CBC & Chem 7: 02/01/21 06:12 02/01/21 06:12 Labs: Laboratory Results - last 24 hr 02/01/21 02/01/21 06:12 06:12 MCV 90.4 MCH 25.9 L MCHC 28.7 L RDW 18.9 H Plt Count 173 MPV 10.2 Absolute Nucleated RBC 0.000 Nucleated RBC % (auto) 0.0 Anion Gap 9 L Estim Creat Clear Calc 82.5 Estimated GFR > 60 Fasting Glucose 116 H Calcium 8.1 L Microbiology Microbiology Results: Microbiology 01/30/21 09:18 Blood Culture - Preliminary Blood - Venous Staphylococcus species 01/30/21 09:35 Blood Culture - Preliminary Blood - Venous Staphylococcus species Assessment and Plan (1) Pneumonia due to 2019-nCoV: Status: Acute Assessment and Plan: ?70F with known covid, found to be unresponsive, hypoxic, and painful right heel ulcer, now with GPC in blood acute hypoxic respiratory failure and metabolic encephalopathy due to covid pneumonia decadron day 3, wean o2 as tolerated infected right heel ulcer with staph bacteremia vancomycin, surgery appreciated follow up ID follow up repeat cultures dementia, likely chronic alocohol related at baseline opiate dependence methadone history of pulmonary embolism eliquis hypothyroid synthroid htn lisinopril Quality Stroke Does the patient have a stroke diagnosis?: No VTE Prior VTE?: Yes VTE Risk Level:: Medical - moderate - high VTE Device Contraindication: Treatment Not Indicated VTE Drug Contraindication: N/A - Med Ordered
[2021-02-01] MEDS: vancomycin HCL 1,000 MG in 0.9 % Sodium Chloride 250 ML 270 MG IV (10:30)
--- NOTE | 2021-02-01 16:25 | P.PNGS_ITS ---
Subjective Subjective Date of Service: 02/01/21 Interval history: Patient more awake, answering some questions. Physical Exam Vital Signs: Vital Signs: Last Vital Signs Temp 97.0 F 02/01/21 15:22 Pulse 80 02/01/21 15:22 Resp 20 02/01/21 15:34 BP 106/63 02/01/21 15:22 Pulse Ox 90 L 02/01/21 15:22 BMI result Body Mass Index 19.8 Const: General: confusion and lethargic Nutritional Appearance: thin Orientation/consciousness: confusion and lethargic Limitations: altered mental status Resp: Effort & Inspection: normal respiratory effort, no audible wheezes, no cough and no respiratory distress Skin: General skin exam: no rashes or lesions noted Neuro: General: confusion Extrem: Other: Heel ulcer measuring approximately 2 cm in diameter with firmly attached eschar at the base with bone on the surface. Fifteen blade used to excise some of the eschar from the margins and base of the wound. Wounds dressed with silver alginate followed by pink sponge dressing. Patient tolerated the debridement well. Objective Data Active Medications Al Hydroxide/Mg Hydroxide (Magnesium Hydrox/Alum Hydrox 30 Ml Oral.Susp) 30 ml PO Q4H PRN PRN Reason: GERD Alprazolam (Alprazolam 0.5 Mg Tablet) 0.5 mg PO Q8H PRN PRN Reason: Anxiety Apixaban (Apixaban 5 Mg Tablet) 5 mg PO BID [facility] Last Admin: 02/01/21 09:51 Dose: 5 mg Documented by: IRAJ Buspirone HCl (Buspirone Hcl 5 Mg Tablet) 5 mg PO TID [facility] Last Admin: 02/01/21 09:51 Dose: 5 mg Documented by: IRAJ Collagenase (Collagenase Clostridium Hist. 30 Gm Tube) 1 appl TOPICAL BEDTIME [facility]; Protocol Last Admin: 01/31/21 21:59 Dose: Not Given Documented by: NICOLE Non-Admin Reason: Med Not Available Dexamethasone Sodium Phosphate (Dexamethasone Sod Phosphate 4 Mg/Ml Vial) 6 mg IVPUSH DAILY [facility] Last Admin: 02/01/21 09:52 Dose: 6 mg Documented by: IRAJ Duloxetine HCl (Duloxetine Hcl 60 Mg Capsule.) 60 mg PO DAILY [facility] Last Admin: 02/01/21 09:51 Dose: 60 mg Documented by: IRAJ Gabapentin (Gabapentin 100 Mg Capsule) 500 mg PO TID [facility] Last Admin: 02/01/21 09:51 Dose: 500 mg Documented by: IRAJ Vancomycin HCl 1,000 mg/ (Sodium Chloride) 270 mls @ 270 mls/hr IV Q24H [facility] Last Infusion: 02/01/21 11:35 Dose: 0 mls/hr Documented by: IRAJ Lamotrigine (Lamotrigine 100 Mg Tablet) 100 mg PO BEDTIME [facility] Last Admin: 01/31/21 21:58 Dose: 100 mg Documented by: NICOLE Levothyroxine Sodium (Levothyroxine Sodium 50 Mcg Tablet) 50 mcg PO DAILY@0600 [facility] Last Admin: 02/01/21 05:08 Dose: 50 mcg Documented by: NICOLE Lisinopril (Lisinopril 2.5 Mg Tablet) 2.5 mg PO DAILY [facility]; Protocol Last Admin: 02/01/21 09:51 Dose: Not Given Documented by: IRAJ Non-Admin Reason: bradycardic Methadone HCl (Methadone Hcl 20 Mg/2 Ml Oral.Conc) 10 mg PO DAILY PRN PRN Reason: OPIOID ADDICATION Methadone HCl (Methadone Hcl 20 Mg/2 Ml Oral.Conc) 10 mg PO BID [facility] Last Admin: 02/01/21 09:51 Dose: 10 mg Documented by: IRAJ Mirtazapine (Mirtazapine 15 Mg Tablet) 15 mg PO BEDTIME [facility] Last Admin: 01/31/21 21:58 Dose: 15 mg Documented by: NICOLE Pharmacy Consult (Consult Rx Perform Med Rec) 1 each MISCELLANE ONCE PRN PRN Reason: Consult order Pharmacy Consult (Consult Rx Vancomycin Dosing) 1 each MISCELLANE DAILY PRN PRN Reason: Consult order Polyethylene Glycol (Polyethylene Glycol 3350 17 Gm Powd.Pack) 17 gm PO DAILY [facility] Last Admin: 02/01/21 09:52 Dose: Not Given Documented by: IRAJ Non-Admin Reason: Patient Refused Risperidone (Risperidone 2 Mg Tablet) 2 mg PO BID [facility] Last Admin: 02/01/21 09:51 Dose: 2 mg Documented by: IRAJ Senna (Sennosides 8.6 Mg Tablet) 17.2 mg PO DAILY [facility] Last Admin: 02/01/21 09:51 Dose: 17.2 mg Documented by: IRAJ Sodium Chloride (0.9 % Sodium Chloride Flush 3 Ml Syringe) 3 ml IVFLUSH QSHIFT [facility] Last Admin: 02/01/21 09:52 Dose: 3 ml Documented by: IRAJ Tiotropium [place] (Tiotropium [place] 18 Mcg Cap.W.Dev) 2 puff INHALE RDAILY [facility] Last Admin: 02/01/21 08:25 Dose: 2 puff Documented by: MARTÍN Labs CBC & Chem 7: 02/01/21 06:12 02/01/21 06:12 Labs: Laboratory Results - last 24 hr 02/01/21 02/01/21 06:12 06:12 MCV 90.4 MCH 25.9 L MCHC 28.7 L RDW 18.9 H Plt Count 173 MPV 10.2 Absolute Nucleated RBC 0.000 Nucleated RBC % (auto) 0.0 Anion Gap 9 L Estim Creat Clear Calc 82.5 Estimated GFR > 60 Fasting Glucose 116 H Calcium 8.1 L Microbiology Microbiology Results: Microbiology 01/30/21 09:18 Blood Culture - Preliminary Blood - Venous Staphylococcus species 01/30/21 09:35 Blood Culture - Preliminary Blood - Venous Staphylococcus species Procedures Date of Service Date of Service: 02/01/21 Progress Note: A&P Assessment and plan (1) Heel ulceration: Status: Acute Assessment and Plan: Chronic heel ulcer with thick eschar extending down to bone. Margins were debrided with a 15 blade today but some residual eschar is densely adherent to bone. Wounds dressed with silver alginate and covered with a foam dressing. No evidence of abscess. Continue local wound care. Fall Risk Details Current Medications: Current Medications Al Hydroxide/Mg Hydroxide (Magnesium Hydrox/Alum Hydrox 30 Ml Oral.Susp) 30 ml PO Q4H PRN PRN Reason: GERD Alprazolam (Alprazolam 0.5 Mg Tablet) 0.5 mg PO Q8H PRN PRN Reason: Anxiety Apixaban (Apixaban 5 Mg Tablet) 5 mg PO BID [facility] Last Admin: 02/01/21 09:51 Dose: 5 mg Documented by: Buspirone HCl (Buspirone Hcl 5 Mg Tablet) 5 mg PO TID [facility] Last Admin: 02/01/21 09:51 Dose: 5 mg Documented by: Collagenase (Collagenase Clostridium Hist. 30 Gm Tube) 1 appl TOPICAL BEDTIME [facility]; Protocol Last Admin: 01/31/21 21:59 Dose: Not Given Documented by: Dexamethasone Sodium Phosphate (Dexamethasone Sod Phosphate 4 Mg/Ml Vial) 6 mg IVPUSH DAILY [facility] Last Admin: 02/01/21 09:52 Dose: 6 mg Documented by: Duloxetine HCl (Duloxetine Hcl 60 Mg Capsule.Dr) 60 mg PO DAILY [facility] Last Admin: 02/01/21 09:51 Dose: 60 mg Documented by: Gabapentin (Gabapentin 100 Mg Capsule) 500 mg PO TID [facility] Last Admin: 02/01/21 09:51 Dose: 500 mg Documented by: Vancomycin HCl 1,000 mg/ (Sodium Chloride) 270 mls @ 270 mls/hr IV Q24H [facility] Last Infusion: 02/01/21 11:35 Dose: Infused Documented by: Lamotrigine (Lamotrigine 100 Mg Tablet) 100 mg PO BEDTIME [facility] Last Admin: 01/31/21 21:58 Dose: 100 mg Documented by: Levothyroxine Sodium (Levothyroxine Sodium 50 Mcg Tablet) 50 mcg PO DAILY@0600 [facility] Last Admin: 02/01/21 05:08 Dose: 50 mcg Documented by: Lisinopril (Lisinopril 2.5 Mg Tablet) 2.5 mg PO DAILY [facility]; Protocol Last Admin: 02/01/21 09:51 Dose: Not Given Documented by: Methadone HCl (Methadone Hcl 20 Mg/2 Ml Oral.Conc) 10 mg PO DAILY PRN PRN Reason: OPIOID ADDICATION Methadone HCl (Methadone Hcl 20 Mg/2 Ml Oral.Conc) 10 mg PO BID [facility] Last Admin: 02/01/21 09:51 Dose: 10 mg Documented by: Mirtazapine (Mirtazapine 15 Mg Tablet) 15 mg PO BEDTIME [facility] Last Admin: 01/31/21 21:58 Dose: 15 mg Documented by: Pharmacy Consult (Consult Rx Perform Med Rec) 1 each MISCELLANE ONCE PRN PRN Reason: Consult order Pharmacy Consult (Consult Rx Vancomycin Dosing) 1 each MISCELLANE DAILY PRN PRN Reason: Consult order Polyethylene Glycol (Polyethylene Glycol 3350 17 Gm Powd.Pack) 17 gm PO DAILY [facility] Last Admin: 02/01/21 09:52 Dose: Not Given Documented by: Risperidone (Risperidone 2 Mg Tablet) 2 mg PO BID [facility] Last Admin: 02/01/21 09:51 Dose: 2 mg Documented by: Senna (Sennosides 8.6 Mg Tablet) 17.2 mg PO DAILY [facility] Last Admin: 02/01/21 09:51 Dose: 17.2 mg Documented by: Sodium Chloride (0.9 % Sodium Chloride Flush 3 Ml Syringe) 3 ml IVFLUSH QSHIFT [facility] Last Admin: 02/01/21 09:52 Dose: 3 ml Documented by: Tiotropium [place] (Tiotropium [place] 18 Mcg Cap.W.Dev) 2 puff INHALE RDAILY [facility] Last Admin: 02/01/21 08:25 Dose: 2 puff Documented by: Time Spent With Patient Time: Total time spent is greater than 50% in coordination of care (as documented) at patient's floor/unit and/or counseling patient: Time with patient: 25 - 35 minutes Quality Stroke Does the patient have a stroke diagnosis?: No VTE Prior VTE?: Yes VTE Risk Level:: Medical - moderate - high VTE Device Contraindication: Treatment Not Indicated VTE Drug Contraindication: N/A - Med Ordered
[2021-02-01] MEDS: Collagenase Clostridium Hist. 30 GM TUBE 1 APPL TOPICAL (20:59)
[2021-02-01] MEDS: Mirtazapine 15 MG TABLET PO (21:00)
[2021-02-01] MEDS: lamoTRIgine 100 MG TABLET PO (21:00)
--- NOTE | 2021-02-01 22:42 | P.CNID_ITS ---
History of Present Illness Data of Consult Service Date: 02/01/21 Requesting physician: Toño Vargas Primary Care Provider: Cassi Da Silva MD HPI Reason for consult: shortness of breath She presents with shortness of breath and oxygen saturation 60s She also has right heel eschar and staph bacteremia Review of Systems Review of Systems: Yes all other systems are reviewed and are negative PMFSH Past Medical History Medical History Alcoholism Falls Opiate dependence Pulmonary embolus Social History Social History Household Members: Other Housing: Group Home Do you presently have visiting nurse or other home services: No Unable to assess alcohol history related to: Unable to respond and Unknown Patient Tobacco Use Status: Former Tobacco user Tobacco use type: Cigarette service: No Current occupational status: [employer] Natural Allergies Allergy/AdvReac Type Severity Reaction Status Date / Time Unable to Assess Allergy Verified 01/30/21 08:57 Active Medications: Current Medications Al Hydroxide/Mg Hydroxide (Magnesium Hydrox/Alum Hydrox 30 Ml Oral.Susp) 30 ml PO Q4H PRN PRN Reason: GERD Alprazolam (Alprazolam 0.5 Mg Tablet) 0.5 mg PO Q8H PRN PRN Reason: Anxiety Apixaban (Apixaban 5 Mg Tablet) 5 mg PO BID [facility] Last Admin: 02/01/21 21:00 Dose: 5 mg Documented by: Buspirone HCl (Buspirone Hcl 5 Mg Tablet) 5 mg PO TID [facility] Last Admin: 02/01/21 21:00 Dose: 5 mg Documented by: Collagenase (Collagenase Clostridium Hist. 30 Gm Tube) 1 appl TOPICAL BEDTIME [facility]; Protocol Last Admin: 02/01/21 20:59 Dose: 1 appl Documented by: Dexamethasone Sodium Phosphate (Dexamethasone Sod Phosphate 4 Mg/Ml Vial) 6 mg IVPUSH DAILY [facility] Last Admin: 02/01/21 09:52 Dose: 6 mg Documented by: Duloxetine HCl (Duloxetine Hcl 60 Mg Capsule.) 60 mg PO DAILY [facility] Last Admin: 02/01/21 09:51 Dose: 60 mg Documented by: Gabapentin (Gabapentin 100 Mg Capsule) 500 mg PO TID [facility] Last Admin: 02/01/21 21:00 Dose: 500 mg Documented by: Vancomycin HCl 1,000 mg/ (Sodium Chloride) 270 mls @ 270 mls/hr IV Q24H [facility] Last Infusion: 02/01/21 11:35 Dose: Infused Documented by: Lamotrigine (Lamotrigine 100 Mg Tablet) 100 mg PO BEDTIME [facility] Last Admin: 02/01/21 21:00 Dose: 100 mg Documented by: Levothyroxine Sodium (Levothyroxine Sodium 50 Mcg Tablet) 50 mcg PO DAILY@0600 [facility] Last Admin: 02/01/21 05:08 Dose: 50 mcg Documented by: Lisinopril (Lisinopril 2.5 Mg Tablet) 2.5 mg PO DAILY [facility]; Protocol Last Admin: 02/01/21 09:51 Dose: Not Given Documented by: Methadone HCl (Methadone Hcl 20 Mg/2 Ml Oral.Conc) 10 mg PO DAILY PRN PRN Reason: OPIOID ADDICATION Methadone HCl (Methadone Hcl 20 Mg/2 Ml Oral.Conc) 10 mg PO BID [facility] Last Admin: 02/01/21 21:00 Dose: 10 mg Documented by: Mirtazapine (Mirtazapine 15 Mg Tablet) 15 mg PO BEDTIME [facility] Last Admin: 02/01/21 21:00 Dose: 15 mg Documented by: Pharmacy Consult (Consult Rx Perform Med Rec) 1 each MISCELLANE ONCE PRN PRN Reason: Consult order Pharmacy Consult (Consult Rx Vancomycin Dosing) 1 each MISCELLANE DAILY PRN PRN Reason: Consult order Polyethylene Glycol (Polyethylene Glycol 3350 17 Gm Powd.Pack) 17 gm PO DAILY [facility] Last Admin: 02/01/21 09:52 Dose: Not Given Documented by: Risperidone (Risperidone 2 Mg Tablet) 2 mg PO BID [facility] Last Admin: 02/01/21 21:00 Dose: 2 mg Documented by: Senna (Sennosides 8.6 Mg Tablet) 17.2 mg PO DAILY [facility] Last Admin: 02/01/21 09:51 Dose: 17.2 mg Documented by: Sodium Chloride (0.9 % Sodium Chloride Flush 3 Ml Syringe) 3 ml IVFLUSH QSHIFT [facility] Last Admin: 02/01/21 21:01 Dose: 3 ml Documented by: Tiotropium [place] (Tiotropium [place] 18 Mcg Cap.W.Dev) 2 puff INHALE RDAILY [facility] Last Admin: 02/01/21 08:25 Dose: 2 puff Documented by: Home Medications Medication Instructions Recorded Confirmed Last Taken Type acetaminophen 325 mg tablet 650 mg PO Q6H PRN 01/30/21 01/30/21 Unknown History albuterol sulfate 90 mcg/actuation 2 puff INHALATION Q4-6H PRN 01/30/21 01/30/21 Unknown History aerosol inhaler alprazolam 0.5 mg tablet 0.5 mg PO Q8H PRN 01/30/21 01/30/21 Unknown History aluminum-mag hydroxide-simethicone 30 ml PO Q4H PRN 01/30/21 01/30/21 Unknown History 200 mg-200 mg-20 mg/5 mL oral susp apixaban 5 mg tablet 5 mg PO BID 01/30/21 01/30/21 Unknown History buspirone 5 mg tablet 5 mg PO TID 01/30/21 01/30/21 Unknown History collagenase clostridium histo. 250 1 appl TOPICAL BEDTIME 01/30/21 01/30/21 Unknown History unit/gram topical ointment (Santyl) duloxetine 60 mg capsule,delayed 60 mg PO DAILY 01/30/21 01/30/21 Unknown History release gabapentin 100 mg capsule 500 mg PO TID 01/30/21 01/30/21 Unknown History lamotrigine 100 mg tablet 100 mg PO BEDTIME 01/30/21 01/30/21 Unknown History levothyroxine 50 mcg tablet 50 mcg PO DAILY@0600 01/30/21 01/30/21 Unknown History lisinopril 5 mg tablet 2.5 mg PO DAILY 01/30/21 01/30/21 Unknown History methadone 10 mg tablet 10 mg PO BID 01/30/21 01/30/21 01/29/21 21:00 History methadone 10 mg tablet 10 mg PO DAILY PRN 01/30/21 01/30/21 Unknown History mirtazapine 15 mg tablet (Remeron) 15 mg PO BEDTIME 01/30/21 01/30/21 Unknown History oxycodone 5 mg tablet 5 mg PO Q6H PRN 01/30/21 01/30/21 Unknown History polyethylene glycol 3350 17 gram 17 g PO DAILY 01/30/21 01/30/21 Unknown History oral powder packet (Miralax) risperidone 2 mg tablet 2 mg PO BID 01/30/21 01/30/21 Unknown History sennosides 8.6 mg tablet (senna) 17.2 mg PO DAILY 01/30/21 01/30/21 Unknown History tiotropium bromide 2.5 2 puff INHALATION DAILY 01/30/21 01/30/21 Unknown History mcg/actuation mist for inhalation (Spiriva Respimat) Physical Exam Vital Signs: Vital Signs: Last Vital Signs Temp 97.9 F 02/01/21 19:16 Pulse 71 02/01/21 19:16 Resp 20 02/01/21 20:06 BP 106/69 02/01/21 19:16 Pulse Ox 96 02/01/21 19:16 BMI result Body Mass Index 19.8 Const: General: cooperative Eyes: General: appearance normal, both eyes and all related structures Resp: Effort & Inspection: normal respiratory effort Cardio: Rate: regular rate Rhythm: regular rhythm GI: Palpation (GI): Soft to palpation and nontender Skin: General skin exam: no rashes or lesions noted Results Labs CBC & Chem 7: 02/01/21 06:12 02/01/21 06:12 Labs: Short CBC 01/30/21 02/01/21 Range/Units 09:18 06:12 WBC 4.1 L (4.8-10.8) X10*3/uL Hgb 9.7 L (12.0-16.0) g/dl Hct 33.8 L (37.0-47.0) % Plt Count 173 (160-400) X10*3/uL AST 70 H (5-31) U/L ALT 29 (0-31) U/L BMP 02/01/21 06:12 Sodium 141 Potassium 4.7 Chloride 102 Carbon Dioxide 35 H BUN 17 H Creatinine 0.55 Calcium 8.1 L Microbiology Microbiology Results: Microbiology 01/30/21 09:18 Blood - Venous Blood Culture - Preliminary Staphylococcus species 01/30/21 09:35 Blood - Venous Blood Culture - Preliminary Staphylococcus species Assessment and Plan (1) Pneumonia due to 2019-nCoV: Status: Acute There is recent onset of COVID symptoms,01/25. She has some hypoxia and confusion Suggest continue Dexamethasone and oxygen (2) Heel ulceration: Status: Acute IV antibiotics for six weeks Possible Vancomycin
[2021-02-02] VITALS (15 sets, daily range): BP systolic 96–122; BP diastolic 56–76; PULSE 62–82; RESP 18–22; TEMP 36.1–37; O2SAT 86–96
[2021-02-02] MEDS: Levothyroxine Sodium 50 MCG TABLET PO (06:04)
[2021-02-02 06:50] LABS: Hematocrit 33.9 % (37.0-47.0); Hemoglobin 9.5 g/dl (12.0-16.0); Mean Corpuscular Hemoglobin 25.2 pg (27.0-33.0); Mean Corpuscular Volume 89.9 fL (80.0-98.0); Mean Platelet Volume 10.3 fL (9.4-12.3); Platelet Count 210 X10*3/uL (160-400); Red Blood Count 3.77 X10*6/uL (4.20-5.50); Red Cell Distribution Width 18.6 % (11.0-16.0); White Blood Count 4.4 X10*3/uL (4.8-10.8)
[2021-02-02 07:08] LABS: Anion Gap 10 (12-20); Blood Urea Nitrogen 17 mg/dL (9-16); Calcium 8.1 mg/dL (8.4-10.2); Carbon Dioxide 34 mmol/L (22-29); Chloride 101 mmol/L (96-108); Creatinine Clr Calc Pharmacy 79.6; Estimated Glomerular Filt Rate > 60; Glucose Fasting 82 mg/dL (60-99); Potassium 5.1 mmol/L (3.3-5.1); Sodium 140 mmol/L (135-145)
[2021-02-02 07:53] LABS: Erythrocyte Sedimentation Rate 28 MM/HR (0-20)
[2021-02-02 09:48] LABS: Vancomycin Trough 5.1 mcg/mL (10.0-20.0)
[2021-02-02] MEDS: methADONE HCl 20 MG/2 ML ORAL.CONC 10 MG PO ×2 (10:04→22:32)
[2021-02-02] MEDS: DULoxetine HCl 60 MG CAPSULE.DR PO (10:05)
[2021-02-02] MEDS: busPIRone HCl 5 MG TABLET PO ×3 (10:05→22:33)
[2021-02-02] MEDS: Sennosides 8.6 MG TABLET 17.2 MG PO (10:05)
[2021-02-02] MEDS: Apixaban 5 MG TABLET PO ×2 (10:05→22:33)
[2021-02-02] MEDS: Gabapentin 100 MG CAPSULE 500 MG PO ×3 (10:06→22:33)
[2021-02-02] MEDS: risperiDONE 2 MG TABLET PO ×2 (10:06→22:33)
[2021-02-02] MEDS: dexAMETHasone sod phosphate 4 MG/ML VIAL 6 MG IVPUSH (10:07)
[2021-02-02] MEDS: polyethylene glycoL 3350 17 GM POWD.PACK PO (10:07)
[2021-02-02] MEDS: 0.9 % Sodium Chloride Flush 3 ML SYRINGE IVFLUSH ×2 (10:07→22:35)
--- NOTE | 2021-02-02 10:19 | HE.PHANOTE ---
Patients trough was low @5.1, only two doses given, increased dose to 1250 mg, conservatively given patient age, will recheck trough on 02/04
[2021-02-02] MEDS: vancomycin HCL 1,250 MG in 0.9 % Sodium Chloride 250 ML 166.67 MG IV (11:05)
--- NOTE | 2021-02-02 12:45 | P.PNIM_ITS ---
Subjective Subjective Date of Service: 02/02/21 Interval History: cc: ams, hypoxia interval history: sob, heel pain Cardiovascular Cardiovascular: Reports no additional cardiovascular complaints Gastrointestinal Gastrointestinal: Reports no additional gastrointestinal complaints Physical Exam Vital Signs: Vital Signs: Last Vital Signs Temp 98.6 F 02/02/21 11:09 Pulse 75 02/02/21 11:09 Resp 20 02/02/21 12:28 BP 105/66 02/02/21 11:09 Pulse Ox 90 L 02/02/21 11:09 BMI result Body Mass Index 19.8 General: AO X 3, anxious, frail Resp:? Crackles bilateral, mild accessory muscles used CVS: S1,S2,RRR GI: soft, non tender, non distended Neuro:? motor grossly intact, alert Psych: anxious, impaired insight, poor recall skin: right heel ulcer (present on admission) Objective Data Active Medications Al Hydroxide/Mg Hydroxide (Magnesium Hydrox/Alum Hydrox 30 Ml Oral.Susp) 30 ml PO Q4H PRN PRN Reason: GERD Alprazolam (Alprazolam 0.5 Mg Tablet) 0.5 mg PO Q8H PRN PRN Reason: Anxiety Apixaban (Apixaban 5 Mg Tablet) 5 mg PO BID [facility] Last Admin: 02/02/21 10:05 Dose: 5 mg Documented by: SARINA Buspirone HCl (Buspirone Hcl 5 Mg Tablet) 5 mg PO TID [facility] Last Admin: 02/02/21 10:05 Dose: 5 mg Documented by: SARINA Collagenase (Collagenase Clostridium Hist. 30 Gm Tube) 1 appl TOPICAL BEDTIME [facility]; Protocol Last Admin: 02/01/21 20:59 Dose: 1 appl Documented by: JONO Dexamethasone Sodium Phosphate (Dexamethasone Sod Phosphate 4 Mg/Ml Vial) 6 mg IVPUSH DAILY [facility] Last Admin: 02/02/21 10:07 Dose: 6 mg Documented by: SARINA Duloxetine HCl (Duloxetine Hcl 60 Mg Capsule.) 60 mg PO DAILY [facility] Last Admin: 02/02/21 10:05 Dose: 60 mg Documented by: SARINA Gabapentin (Gabapentin 100 Mg Capsule) 500 mg PO TID [facility] Last Admin: 02/02/21 10:06 Dose: 500 mg Documented by: SARINA Vancomycin HCl 1,250 mg/ (Sodium Chloride) 250 mls @ 166.667 mls/hr IV Q24H [facility] Last Admin: 02/02/21 11:05 Dose: 166.67 mls/hr Documented by: SARINA Lamotrigine (Lamotrigine 100 Mg Tablet) 100 mg PO BEDTIME [facility] Last Admin: 02/01/21 21:00 Dose: 100 mg Documented by: JONO Levothyroxine Sodium (Levothyroxine Sodium 50 Mcg Tablet) 50 mcg PO DAILY@0600 [facility] Last Admin: 02/02/21 06:04 Dose: 50 mcg Documented by: JONO Lisinopril (Lisinopril 2.5 Mg Tablet) 2.5 mg PO DAILY [facility]; Protocol Last Admin: 02/02/21 10:50 Dose: Not Given Documented by: SARINA Non-Admin Reason: Physician Held Med Methadone HCl (Methadone Hcl 20 Mg/2 Ml Oral.Conc) 10 mg PO DAILY PRN PRN Reason: OPIOID ADDICATION Methadone HCl (Methadone Hcl 20 Mg/2 Ml Oral.Conc) 10 mg PO BID [facility] Last Admin: 02/02/21 10:04 Dose: 10 mg Documented by: SARINA Mirtazapine (Mirtazapine 15 Mg Tablet) 15 mg PO BEDTIME [facility] Last Admin: 02/01/21 21:00 Dose: 15 mg Documented by: JONO Pharmacy Consult (Consult Rx Perform Med Rec) 1 each MISCELLANE ONCE PRN PRN Reason: Consult order Pharmacy Consult (Consult Rx Vancomycin Dosing) 1 each MISCELLANE DAILY PRN PRN Reason: Consult order Polyethylene Glycol (Polyethylene Glycol 3350 17 Gm Powd.Pack) 17 gm PO DAILY [facility] Last Admin: 02/02/21 10:07 Dose: 17 gm Documented by: SARINA Risperidone (Risperidone 2 Mg Tablet) 2 mg PO BID [facility] Last Admin: 02/02/21 10:06 Dose: 2 mg Documented by: SARINA Senna (Sennosides 8.6 Mg Tablet) 17.2 mg PO DAILY [facility] Last Admin: 02/02/21 10:05 Dose: 17.2 mg Documented by: SARINA Sodium Chloride (0.9 % Sodium Chloride Flush 3 Ml Syringe) [address] [facility] Last Admin: 12/11/21 10:07 Dose: 3 ml Documented by: SARINA Tiotropium [place] (Tiotropium [place] 18 Mcg Cap.W.Dev) 2 puff INHALE RDAILY [facility] Last Admin: 02/02/21 07:55 Dose: 2 puff Documented by: MARTÍN Labs CBC & Chem 7: 02/02/21 06:21 12 06:21 Labs: Laboratory Results - last 24 hr 02/02/21 02/02/21 02/02/21 06:21 06:21 06:21 MCV 89.9 MCH 25.2 L MCHC 28.0 L RDW 18.6 H Plt Count 210 MPV 10.3 Absolute Nucleated RBC 0.000 Nucleated RBC % (auto) 0.0 ESR 28 H Anion Gap 10 L Estim Creat Clear Calc 79.6 Estimated GFR > 60 Fasting Glucose 82 Calcium 8.1 L Vancomycin Trough 02/02/21 09:16 MCV MCH MCHC RDW Plt Count MPV Absolute Nucleated RBC Nucleated RBC % (auto) ESR Anion Gap Estim Creat Clear Calc Estimated GFR Fasting Glucose Calcium Vancomycin Trough 5.1 L Microbiology Microbiology Results: Microbiology 02/01/21 06:12 Blood Culture - Preliminary Blood - Venous No growth after 24 hours. 02/01/21 06:12 Blood Culture - Preliminary Blood - Venous No growth after 24 hours. 01/30/21 09:35 Blood Culture - Preliminary Blood - Venous Staphylococcus hominis ssp may 01/30/21 09:18 Blood Culture - Final Blood - Venous Staphylococcus hominis ssp may Assessment and Plan (1) Pneumonia due to 2019-nCoV: Status: Acute Assessment and Plan: ?70F with known covid, found to be unresponsive, hypoxic, and painful right heel ulcer, now with GPC in blood acute hypoxic respiratory failure and metabolic encephalopathy due to covid pneumonia decadron day 4, wean o2 as tolerated infected right heel ulcer with cellulitis staph bactremia turns out to be coag negative, likely contaminant dc vanco, plan for 8 weeks of doxy (can be po) s/p bediside debridement 02/01/21 dementia, likely chronic alocohol related at baseline opiate dependence methadone history of pulmonary embolism eliquis hypothyroid synthroid htn lisinopril Quality Stroke Does the patient have a stroke diagnosis?: No VTE Prior VTE?: Yes VTE Risk Level:: Medical - moderate - high VTE Device Contraindication: Treatment Not Indicated VTE Drug Contraindication: N/A - Med Ordered
[2021-02-02] MEDS: Doxycycline Hyclate 100 MG in 0.9 % Sodium Chloride 250 ML 166.67 MG IV (14:03)
[2021-02-02] MEDS: Mirtazapine 15 MG TABLET PO (22:33)
[2021-02-02] MEDS: lamoTRIgine 100 MG TABLET PO (22:33)
[2021-02-02] MEDS: Collagenase Clostridium Hist. 30 GM TUBE 1 APPL TOPICAL (22:35)
[2021-02-03] VITALS (12 sets, daily range): BP systolic 100–131; BP diastolic 38–78; PULSE 59–89; RESP 16–20; TEMP 36.2–37.5; O2SAT 90–95
[2021-02-03] MEDS: Doxycycline Hyclate 100 MG in 0.9 % Sodium Chloride 250 ML 166.67 MG IV ×2 (00:28→14:05)
[2021-02-03] MEDS: Levothyroxine Sodium 50 MCG TABLET PO (05:39)
--- NOTE | 2021-02-03 10:14 | HO.PM.IMPN ---
Subjective Subjective Date of Service: 02/03/21 Interval History: cc: ams, hypoxia interval history: sob, heel pain Cardiovascular Cardiovascular: Reports no additional cardiovascular complaints Respiratory Respiratory: Reports no additional respiratory complaints Physical Exam Vital Signs: Vital Signs: Last Vital Signs Temp 98.6 F 02/03/21 08:00 Pulse 70 02/03/21 08:00 Resp 18 02/03/21 08:27 BP 100/59 L 02/03/21 08:00 Pulse Ox 90 L 02/03/21 08:00 BMI result Body Mass Index 19.8 General: AO X 3, anxious, frail Resp:? Crackles bilateral, mild accessory muscles used CVS: S1,S2,RRR GI: soft, non tender, non distended Neuro:? motor grossly intact, alert Psych: anxious, impaired insight, poor recall skin: right heel ulcer (present on admission) Objective Data Active Medications Al Hydroxide/Mg Hydroxide (Magnesium Hydrox/Alum Hydrox 30 Ml Oral.Susp) 30 ml PO Q4H PRN PRN Reason: GERD Alprazolam (Alprazolam 0.5 Mg Tablet) 0.5 mg PO Q8H PRN PRN Reason: Anxiety Apixaban (Apixaban 5 Mg Tablet) 5 mg PO BID [facility] Last Admin: 02/02/21 22:33 Dose: 5 mg Documented by: BRICE Buspirone HCl (Buspirone Hcl 5 Mg Tablet) 5 mg PO TID [facility] Last Admin: 02/02/21 22:33 Dose: 5 mg Documented by: BRICE Collagenase (Collagenase Clostridium Hist. 30 Gm Tube) 1 appl TOPICAL BEDTIME [facility]; Protocol Last Admin: 02/02/21 22:35 Dose: 1 appl Documented by: BRICE Dexamethasone Sodium Phosphate (Dexamethasone Sod Phosphate 4 Mg/Ml Vial) 6 mg IVPUSH DAILY [facility] Last Admin: 02/02/21 10:07 Dose: 6 mg Documented by: SARINA Duloxetine HCl (Duloxetine Hcl 60 Mg Capsule.) 60 mg PO DAILY [facility] Last Admin: 02/02/21 10:05 Dose: 60 mg Documented by: SARINA Gabapentin (Gabapentin 100 Mg Capsule) 500 mg PO TID [facility] Last Admin: 02/02/21 22:33 Dose: 500 mg Documented by: BRICE Doxycycline Hyclate 100 mg/ (Sodium Chloride) 250 mls @ 166.67 mls/hr IV Q12H [facility] Last Infusion: 02/03/21 02:41 Dose: 0 mls/hr Documented by: BRICE Lamotrigine (Lamotrigine 100 Mg Tablet) 100 mg PO BEDTIME [facility] Last Admin: 02/02/21 22:33 Dose: 100 mg Documented by: BRICE Levothyroxine Sodium (Levothyroxine Sodium 50 Mcg Tablet) 50 mcg PO DAILY@0600 [facility] Last Admin: 02/03/21 05:39 Dose: 50 mcg Documented by: BRICE Lisinopril (Lisinopril 2.5 Mg Tablet) 2.5 mg PO DAILY [facility]; Protocol Last Admin: 02/02/21 10:50 Dose: Not Given Documented by: SARINA Non-Admin Reason: Physician Held Med Methadone HCl (Methadone Hcl 20 Mg/2 Ml Oral.Conc) 10 mg PO DAILY PRN PRN Reason: OPIOID ADDICATION Methadone HCl (Methadone Hcl 20 Mg/2 Ml Oral.Conc) 10 mg PO BID [facility] Last Admin: 02/02/21 22:32 Dose: 10 mg Documented by: BRICE Mirtazapine (Mirtazapine 15 Mg Tablet) 15 mg PO BEDTIME [facility] Last Admin: 02/02/21 22:33 Dose: 15 mg Documented by: BRICE Pharmacy Consult (Consult Rx Perform Med Rec) 1 each MISCELLANE ONCE PRN PRN Reason: Consult order Polyethylene Glycol (Polyethylene Glycol 3350 17 Gm Powd.Pack) 17 gm PO DAILY [facility] Last Admin: 02/02/21 10:07 Dose: 17 gm Documented by: SARINA Risperidone (Risperidone 2 Mg Tablet) 2 mg PO BID [facility] Last Admin: 02/02/21 22:33 Dose: 2 mg Documented by: BRICE Senna (Sennosides 8.6 Mg Tablet) 17.2 mg PO DAILY [facility] Last Admin: 02/02/21 10:05 Dose: 17.2 mg Documented by: SARINA Sodium Chloride (0.9 % Sodium Chloride Flush 3 Ml Syringe) 3 ml IVFLUSH QSHIFT [facility] Last Admin: 02/02/21 22:35 Dose: 3 ml Documented by: BRICE Tiotropium [place] (Tiotropium [place] 18 Mcg Cap.W.Dev) 2 puff INHALE RDAILY [facility] Last Admin: 02/03/21 08:28 Dose: Not Given Documented by: MARTÍN Non-Admin Reason: See Note Labs CBC & Chem 7: 02/02/21 06:21 02/02/21 06:21 Microbiology Microbiology Results: Microbiology 02/01/21 06:12 Blood Culture - Preliminary Blood - Venous No growth after 48 hours. 02/01/21 06:12 Blood Culture - Preliminary Blood - Venous No growth after 48 hours. 01/30/21 09:35 Blood Culture - Final Blood - Venous Staphylococcus hominis ssp may Coag negative Staphylococcus 01/30/21 09:18 Blood Culture - Final Blood - Venous Staphylococcus hominis ssp may Assessment and Plan (1) Pneumonia due to 2019-nCoV: Status: Acute Assessment and Plan: ?70F with known covid, found to be unresponsive, hypoxic, and painful right heel ulcer, now with GPC in blood acute hypoxic respiratory failure and metabolic encephalopathy due to covid pneumonia decadron day 5, wean o2 as tolerated infected right heel ulcer with cellulitis staph bactremia turns out to be coag negative, likely contaminant dced vanco, plan for 8 weeks of doxy (can be po) s/p bediside debridement 02/01/21 dementia, likely chronic alocohol related at baseline opiate dependence methadone history of pulmonary embolism eliquis hypothyroid synthroid htn lisinopril Quality Stroke Does the patient have a stroke diagnosis?: No VTE Prior VTE?: Yes VTE Risk Level:: Medical - moderate - high VTE Device Contraindication: Treatment Not Indicated VTE Drug Contraindication: N/A - Med Ordered
[2021-02-03] MEDS: Gabapentin 100 MG CAPSULE 500 MG PO ×3 (10:54→21:04)
[2021-02-03] MEDS: DULoxetine HCl 60 MG CAPSULE.DR PO (10:55)
[2021-02-03] MEDS: Sennosides 8.6 MG TABLET 17.2 MG PO (10:55)
[2021-02-03] MEDS: lisinopriL 2.5 MG TABLET PO (10:56)
[2021-02-03] MEDS: risperiDONE 2 MG TABLET PO ×2 (10:56→21:04)
[2021-02-03] MEDS: busPIRone HCl 5 MG TABLET PO ×3 (10:56→21:04)
[2021-02-03] MEDS: methADONE HCl 20 MG/2 ML ORAL.CONC 10 MG PO ×2 (10:57→21:04)
[2021-02-03] MEDS: 0.9 % Sodium Chloride Flush 3 ML SYRINGE IVFLUSH ×3 (10:57→21:05)
[2021-02-03] MEDS: dexAMETHasone sod phosphate 4 MG/ML VIAL 6 MG IVPUSH (10:58)
[2021-02-03] MEDS: Apixaban 5 MG TABLET PO ×2 (10:58→21:04)
[2021-02-03] MEDS: polyethylene glycoL 3350 17 GM POWD.PACK PO (10:58)
[2021-02-03] MEDS: lamoTRIgine 100 MG TABLET PO (21:04)
[2021-02-03] MEDS: Mirtazapine 15 MG TABLET PO (21:04)
[2021-02-03] MEDS: Collagenase Clostridium Hist. 30 GM TUBE 1 APPL TOPICAL (21:05)
[2021-02-04] VITALS (13 sets, daily range): BP systolic 124–148; BP diastolic 69–88; PULSE 56–83; RESP 18; TEMP 36.2–37.3; O2SAT 89–99
--- NOTE | 2021-02-04 01:05 | PC.NURSE ---
pt cleaned and repositioned. desat to 88% on HF 40L 40%. Taking long to recover. Placed on NRB briefly. pt satting 91%
[2021-02-04] MEDS: Doxycycline Hyclate 100 MG in 0.9 % Sodium Chloride 250 ML 166.67 MG IV ×3 (01:29→23:59)
--- NOTE | 2021-02-04 05:12 | PC.NURSE ---
pt continues to be on HFNC 40L 40%, but is mouth breathing which is making her desat to 86-88%. Placed on NRB 15L while sleeping. When fully awake she closes her mouth and breathes through her nose - will remove once awake.
[2021-02-04 06:10] LABS: Hematocrit 31.3 % (37.0-47.0); Hemoglobin 9.2 g/dl (12.0-16.0); Mean Corpuscular HGB Conc 29.4 g/dl (31.0-35.0); Mean Corpuscular Hemoglobin 26.1 pg (27.0-33.0); Mean Corpuscular Volume 88.7 fL (80.0-98.0); Mean Platelet Volume 9.4 fL (9.4-12.3); Platelet Count 228 X10*3/uL (160-400); Red Blood Count 3.53 X10*6/uL (4.20-5.50); Red Cell Distribution Width 18.5 % (11.0-16.0); White Blood Count 4.7 X10*3/uL (4.8-10.8)
[2021-02-04 06:20] LABS: D Dimer High Sensitivity 258 NG/ML
[2021-02-04 06:49] LABS: Anion Gap 8 (12-20); Blood Urea Nitrogen 16 mg/dL (9-16); C Reactive Protein 1.98 mg/dL (< or = 0.50); Calcium 8.2 mg/dL (8.4-10.2); Carbon Dioxide 35 mmol/L (22-29); Chloride 104 mmol/L (96-108); Creatinine Clr Calc Pharmacy 82.5; Estimated Glomerular Filt Rate > 60; Glucose Fasting 73 mg/dL (60-99); Lactate Dehydrogenase 203 U/L (122-220); Potassium 4.3 mmol/L (3.3-5.1); Sodium 143 mmol/L (135-145)
[2021-02-04] MEDS: Levothyroxine Sodium 50 MCG TABLET PO (07:37)
--- NOTE | 2021-02-04 09:09 | MHC.CM.PN ---
Female 70 DX Covid+ She continues to require High Flow + NRB 40 L. She is in the process of weaning from O2. DP return to [facility] via S.
[2021-02-04] MEDS: dexAMETHasone sod phosphate 4 MG/ML VIAL 6 MG IVPUSH (09:10)
[2021-02-04] MEDS: 0.9 % Sodium Chloride Flush 3 ML SYRINGE IVFLUSH ×3 (09:13→21:55)
[2021-02-04] MEDS: lisinopriL 2.5 MG TABLET PO (09:15)
[2021-02-04] MEDS: Sennosides 8.6 MG TABLET 17.2 MG PO (09:15)
[2021-02-04] MEDS: Apixaban 5 MG TABLET PO ×2 (09:15→21:54)
[2021-02-04] MEDS: Gabapentin 100 MG CAPSULE 500 MG PO ×3 (09:16→21:53)
[2021-02-04] MEDS: DULoxetine HCl 60 MG CAPSULE.DR PO (09:16)
[2021-02-04] MEDS: busPIRone HCl 5 MG TABLET PO ×3 (09:16→21:54)
[2021-02-04] MEDS: risperiDONE 2 MG TABLET PO ×2 (09:16→21:54)
[2021-02-04] MEDS: polyethylene glycoL 3350 17 GM POWD.PACK PO (09:18)
--- NOTE | 2021-02-04 09:42 | P.PNIM_ITS ---
Subjective Subjective Date of Service: 02/04/21 Interval History: cc: ams, hypoxia interval history: sob, weakness Cardiovascular Cardiovascular: Reports no additional cardiovascular complaints Gastrointestinal Gastrointestinal: Reports no additional gastrointestinal complaints Physical Exam Vital Signs: Vital Signs: Last Vital Signs Temp 97.3 F 02/04/21 07:41 Pulse 65 02/04/21 09:15 Resp 18 02/04/21 09:37 BP 148/79 H 02/04/21 09:15 Pulse Ox 92 02/04/21 07:41 BMI result Body Mass Index 19.8 General: AO X 3, anxious, frail Resp:? Crackles bilateral, mild accessory muscles used CVS: S1,S2,RRR GI: soft, non tender, non distended Neuro:? motor grossly intact, alert Psych: anxious, impaired insight, poor recall skin: right heel ulcer (present on admission) Objective Data Active Medications Al Hydroxide/Mg Hydroxide (Magnesium Hydrox/Alum Hydrox 30 Ml Oral.Susp) 30 ml PO Q4H PRN PRN Reason: GERD Alprazolam (Alprazolam 0.5 Mg Tablet) 0.5 mg PO Q8H PRN PRN Reason: Anxiety Apixaban (Apixaban 5 Mg Tablet) 5 mg PO BID [facility] Last Admin: 02/04/21 09:15 Dose: 5 mg Documented by: BILLY Buspirone HCl (Buspirone Hcl 5 Mg Tablet) 5 mg PO TID [facility] Last Admin: 02/04/21 09:16 Dose: 5 mg Documented by: BILLY Collagenase (Collagenase Clostridium Hist. 30 Gm Tube) 1 appl TOPICAL BEDTIME [facility]; Protocol Last Admin: 02/03/21 21:05 Dose: 1 appl Documented by: ELLEN Dexamethasone Sodium Phosphate (Dexamethasone Sod Phosphate 4 Mg/Ml Vial) 6 mg IVPUSH DAILY [facility] Last Admin: 02/04/21 09:10 Dose: 6 mg Documented by: BILLY Duloxetine HCl (Duloxetine Hcl 60 Mg Capsule.) 60 mg PO DAILY [facility] Last Admin: 02/04/21 09:16 Dose: 60 mg Documented by: BILLY Gabapentin (Gabapentin 100 Mg Capsule) 500 mg PO TID [facility] Last Admin: 02/04/21 09:16 Dose: 500 mg Documented by: BILLY Doxycycline Hyclate 100 mg/ (Sodium Chloride) 250 mls @ 166.67 mls/hr IV Q12H [facility] Last Infusion: 02/04/21 03:42 Dose: 0 mls/hr Documented by: ELLEN Lamotrigine (Lamotrigine 100 Mg Tablet) 100 mg PO BEDTIME [facility] Last Admin: 02/03/21 21:04 Dose: 100 mg Documented by: ELLEN Levothyroxine Sodium (Levothyroxine Sodium 50 Mcg Tablet) 50 mcg PO DAILY@0600 [facility] Last Admin: 02/04/21 07:37 Dose: 50 mcg Documented by: ELLEN Lisinopril (Lisinopril 2.5 Mg Tablet) 2.5 mg PO DAILY [facility]; Protocol Last Admin: 02/04/21 09:15 Dose: 2.5 mg Documented by: BILLY Methadone HCl (Methadone Hcl 20 Mg/2 Ml Oral.Conc) 10 mg PO DAILY PRN PRN Reason: OPIOID ADDICATION Methadone HCl (Methadone Hcl 20 Mg/2 Ml Oral.Conc) 10 mg PO BID [facility] Last Admin: 02/04/21 09:18 Dose: 10 mg Documented by: BILLY Mirtazapine (Mirtazapine 15 Mg Tablet) 15 mg PO BEDTIME [facility] Last Admin: 02/03/21 21:04 Dose: 15 mg Documented by: ELLEN Pharmacy Consult (Consult Rx Perform Med Rec) 1 each MISCELLANE ONCE PRN PRN Reason: Consult order Polyethylene Glycol (Polyethylene Glycol 3350 17 Gm Powd.Pack) 17 gm PO DAILY [facility] Last Admin: 02/04/21 09:18 Dose: 17 gm Documented by: BILLY Risperidone (Risperidone 2 Mg Tablet) 2 mg PO BID [facility] Last Admin: 02/04/21 09:16 Dose: 2 mg Documented by: BILLY Senna (Sennosides 8.6 Mg Tablet) 17.2 mg PO DAILY [facility] Last Admin: 02/04/21 09:15 Dose: 17.2 mg Documented by: BILLY Sodium Chloride (0.9 % Sodium Chloride Flush 3 Ml Syringe) 3 ml IVFLUSH QSHIFT [facility] Last Admin: 02/04/21 09:13 Dose: 3 ml Documented by: BILLY Tiotropium [place] (Tiotropium [place] 18 Mcg Cap.W.Dev) 2 puff INHALE RDAILY [facility] Last Admin: 02/04/21 07:37 Dose: Not Given Documented by: MIGDALIA Non-Admin Reason: Med Not Available Labs CBC & Chem 7: 02/04/21 05:37 02/04/21 05:37 Labs: Laboratory Results - last 24 hr 02/04/21 02/04/21 02/04/21 05:37 05:37 05:37 MCV 88.7 MCH 26.1 L MCHC 29.4 L RDW 18.5 H Plt Count 228 MPV 9.4 Absolute Nucleated RBC 0.000 Nucleated RBC % (auto) 0.0 D-Dimer High Sensitivty 258 Anion Gap 8 L Estim Creat Clear Calc 82.5 Estimated GFR > 60 Fasting Glucose 73 Calcium 8.2 L Lactate Dehydrogenase 203 C-Reactive Protein 1.98 H Microbiology Microbiology Results: Microbiology 02/01/21 06:12 Blood Culture - Preliminary Blood - Venous No growth after 48 hours. 02/01/21 06:12 Blood Culture - Preliminary Blood - Venous No growth after 48 hours. 01/30/21 09:35 Blood Culture - Final Blood - Venous Staphylococcus hominis ssp may Coag negative Staphylococcus Assessment and Plan (1) Pneumonia due to 2019-nCoV: Status: Acute Assessment and Plan: ?70F with known covid, found to be unresponsive, hypoxic, and painful right heel ulcer, now with GPC in blood acute hypoxic respiratory failure and metabolic encephalopathy due to covid pneumonia decadron day 6, wean o2 as tolerated - on mid range HFNC and NRB infected right heel ulcer with cellulitis staph bactremia turns out to be coag negative, likely contaminant [facility], plan for 8 weeks of doxy (can be po) (end mar 28, 2021) s/p bediside debridement 02/01/21 dementia, likely chronic alocohol related at baseline opiate dependence methadone history of pulmonary embolism eliquis hypothyroid synthroid htn lisinopril Quality Stroke Does the patient have a stroke diagnosis?: No VTE Prior VTE?: Yes VTE Risk Level:: Medical - moderate - high VTE Device Contraindication: Treatment Not Indicated VTE Drug Contraindication: N/A - Med Ordered
--- NOTE | 2021-02-04 12:00 | PC.NURSE ---
concerned that she is a confused patient is essentially bed bound (with multiple skin issues, needing to be turned and repositioned every 2 hours) and now refusing to eat or drink. Discussed with MD that I believe that we are at a crossroad with her care in regard to how aggressive we need to get/wishes of the health care proxy. MD will speak with family about wishes for extent of care going forward.
--- NOTE | 2021-02-04 13:33 | MHC.CM.PN ---
[facility] Claudia Stern [phone]
--- NOTE | 2021-02-04 13:34 | PC.NURSE ---
patient more awake at this time. much different than this morning. Dr. Vargas made aware
--- NOTE | 2021-02-04 14:11 | W.MHC.ACPN ---
Advanced Care Planning Note Advanced Care Planning Note Discussed with: family member(s) Time spent (in minutes): 16 Narrative: discussed with patient's HCP, lee Stern, over telephone ) due to covid diagnosis, we discussed diagnosis of covid and respiratory failure. HCP was aware of MOLST from 12/2020 stated patient was full code, but says she believes patient did not fully understand what she was signing and did desire to be DNR/DNI, currently patient does not have enough insight to make this decision, therefore, will defer to HCP, new Molst has been filled out to reflect these changes and patient will be made DNR/DNI, all other reasonable therapies will be continued. Problems Discussed (1) Pneumonia due to 2019-nCoV:
[2021-02-04] MEDS: methADONE HCl 20 MG/2 ML ORAL.CONC 10 MG PO (21:54)
[2021-02-04] MEDS: lamoTRIgine 100 MG TABLET PO (21:54)
[2021-02-04] MEDS: Mirtazapine 15 MG TABLET PO (21:54)
[2021-02-04] MEDS: Collagenase Clostridium Hist. 30 GM TUBE 1 APPL TOPICAL (21:56)
[2021-02-05] VITALS (10 sets, daily range): BP systolic 96–151; BP diastolic 58–86; PULSE 54–111; RESP 18–20; TEMP 35.9–37.2; O2SAT 95–100
[2021-02-05] MEDS: Levothyroxine Sodium 50 MCG TABLET PO (06:31)
[2021-02-05] MEDS: busPIRone HCl 5 MG TABLET PO ×3 (09:23→20:56)
[2021-02-05] MEDS: risperiDONE 2 MG TABLET PO ×2 (09:23→20:56)
[2021-02-05] MEDS: DULoxetine HCl 60 MG CAPSULE.DR PO (09:23)
[2021-02-05] MEDS: Gabapentin 100 MG CAPSULE 500 MG PO ×3 (09:23→20:56)
[2021-02-05] MEDS: lisinopriL 2.5 MG TABLET PO (09:24)
[2021-02-05] MEDS: Apixaban 5 MG TABLET PO ×2 (09:24→20:56)
[2021-02-05] MEDS: dexAMETHasone sod phosphate 4 MG/ML VIAL 6 MG IVPUSH (09:24)
[2021-02-05] MEDS: Sennosides 8.6 MG TABLET 17.2 MG PO (09:24)
[2021-02-05] MEDS: polyethylene glycoL 3350 17 GM POWD.PACK PO (09:25)
[2021-02-05] MEDS: methADONE HCl 20 MG/2 ML ORAL.CONC 10 MG PO ×2 (09:25→20:56)
[2021-02-05] MEDS: 0.9 % Sodium Chloride Flush 3 ML SYRINGE IVFLUSH ×2 (09:25→16:40)
--- NOTE | 2021-02-05 10:12 | HO.PM.IMPN ---
Subjective Subjective Date of Service: 02/05/21 Interval History: cc: ams, hypoxia interval history: sob, weakness Cardiovascular Cardiovascular: Reports no additional cardiovascular complaints Respiratory Respiratory: Reports no additional respiratory complaints Physical Exam Vital Signs: Vital Signs: Last Vital Signs Temp 97.1 F 02/05/21 07:53 Pulse 60 02/05/21 09:24 Resp 20 02/05/21 07:53 BP 144/83 H 02/05/21 09:24 Pulse Ox 95 02/05/21 07:53 BMI result Body Mass Index 19.8 General: AO X 3, anxious, frail Resp:? Crackles bilateral, mild accessory muscles used CVS: S1,S2,RRR GI: soft, non tender, non distended Neuro:? motor grossly intact, alert Psych: anxious, impaired insight, poor recall skin: right heel ulcer (present on admission) Objective Data Active Medications Al Hydroxide/Mg Hydroxide (Magnesium Hydrox/Alum Hydrox 30 Ml Oral.Susp) 30 ml PO Q4H PRN PRN Reason: GERD Alprazolam (Alprazolam 0.5 Mg Tablet) 0.5 mg PO Q8H PRN PRN Reason: Anxiety Apixaban (Apixaban 5 Mg Tablet) 5 mg PO BID [facility] Last Admin: 02/05/21 09:24 Dose: 5 mg Documented by: BILLY Buspirone HCl (Buspirone Hcl 5 Mg Tablet) 5 mg PO TID [facility] Last Admin: 02/05/21 09:23 Dose: 5 mg Documented by: BILLY Collagenase (Collagenase Clostridium Hist. 30 Gm Tube) 1 appl TOPICAL BEDTIME [facility]; Protocol Last Admin: 02/04/21 21:56 Dose: 1 appl Documented by: ELLEN Dexamethasone Sodium Phosphate (Dexamethasone Sod Phosphate 4 Mg/Ml Vial) 6 mg IVPUSH DAILY [facility] Last Admin: 02/05/21 09:24 Dose: 6 mg Documented by: BILLY Duloxetine HCl (Duloxetine Hcl 60 Mg Capsule.) 60 mg PO DAILY [facility] Last Admin: 02/05/21 09:23 Dose: 60 mg Documented by: BILLY Gabapentin (Gabapentin 100 Mg Capsule) 500 mg PO TID [facility] Last Admin: 02/05/21 09:23 Dose: 500 mg Documented by: BILLY Doxycycline Hyclate 100 mg/ (Sodium Chloride) 250 mls @ 166.67 mls/hr IV Q12H [facility] Last Infusion: 02/05/21 01:30 Dose: 0 mls/hr Documented by: NICOLE Lamotrigine (Lamotrigine 100 Mg Tablet) 100 mg PO BEDTIME [facility] Last Admin: 02/04/21 21:54 Dose: 100 mg Documented by: ELLEN Levothyroxine Sodium (Levothyroxine Sodium 50 Mcg Tablet) 50 mcg PO DAILY@0600 [facility] Last Admin: 02/05/21 06:31 Dose: 50 mcg Documented by: NICOLE Lisinopril (Lisinopril 2.5 Mg Tablet) 2.5 mg PO DAILY [facility]; Protocol Last Admin: 02/05/21 09:24 Dose: 2.5 mg Documented by: BILLY Methadone HCl (Methadone Hcl 20 Mg/2 Ml Oral.Conc) 10 mg PO DAILY PRN PRN Reason: OPIOID ADDICATION Methadone HCl (Methadone Hcl 20 Mg/2 Ml Oral.Conc) 10 mg PO BID [facility] Last Admin: 02/05/21 09:25 Dose: 10 mg Documented by: BILLY Mirtazapine (Mirtazapine 15 Mg Tablet) 15 mg PO BEDTIME [facility] Last Admin: 02/04/21 21:54 Dose: 15 mg Documented by: ELLEN Pharmacy Consult (Consult Rx Perform Med Rec) 1 each MISCELLANE ONCE PRN PRN Reason: Consult order Polyethylene Glycol (Polyethylene Glycol 3350 17 Gm Powd.Pack) 17 gm PO DAILY [facility] Last Admin: 02/05/21 09:25 Dose: 17 gm Documented by: BILLY Risperidone (Risperidone 2 Mg Tablet) 2 mg PO BID [facility] Last Admin: 02/05/21 09:23 Dose: 2 mg Documented by: BILLY Senna (Sennosides 8.6 Mg Tablet) 17.2 mg PO DAILY [facility] Last Admin: 02/05/21 09:24 Dose: 17.2 mg Documented by: BILLY Sodium Chloride (0.9 % Sodium Chloride Flush 3 Ml Syringe) 3 ml IVFLUSH QSHIFT [facility] Last Admin: 02/05/21 09:25 Dose: 3 ml Documented by: BILLY Tiotropium [place] (Tiotropium [place] 18 Mcg Cap.W.Dev) 2 puff INHALE RDAILY [facility] Last Admin: 02/05/21 07:46 Dose: Not Given Documented by: MIGDALIA Non-Admin Reason: Patient Asleep Labs CBC & Chem 7: 02/04/21 05:37 02/04/21 05:37 Assessment and Plan (1) Pneumonia due to 2019-nCoV: Status: Acute Assessment and Plan: ?70F with known covid, found to be unresponsive, hypoxic, and painful right heel ulcer, now with GPC in blood acute hypoxic respiratory failure and metabolic encephalopathy due to covid pneumonia decadron day 7, wean o2 as tolerated - now satting okay with HFNC only, NRB discontinued infected right heel ulcer with cellulitis staph bactremia turns out to be coag negative, likely contaminant dced vanc, plan for 8 weeks of doxy (can be po) (end mar 28, 2021) s/p bediside debridement 02/01/21 [facility] dementia, 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
--- NOTE | 2021-02-05 12:30 | P.CDIC_ITS ---
CDI Concurrent Query Documentation Clarification: PHYSICIAN'S DOCUMENTATION REQUEST Date of Query: 02/05/21 1231 Patient Name: Edilia Patel Admit Date: 01/30/21 Dear Doctor, A review of the medical record indicates additional documentation may be indicated. Please review below and update the documentation accordingly. Clinical Indicators: Risk Factors/Clinical Indicators/Treatments per MD progress note 01/31/21, infected right heel ulcer present on admission Based on the above, could you please provide, in the Progress Notes, further information regarding the ulcer/wound: * Type (etiology) of ulcer/wound: * Diabetic ulcer * Venous stasis ulcer * Arterial (ischemic) ulcer * Pressure (decubitus) ulcer * Traumatic wound * Non-healing surgical wound * Other * Unable to determine * For a non-pressure ulcer, please indicate the depth/severity: * Limited to the breakdown of skin * With fat layer exposed * With necrosis of muscle * With necrosis of bone * Other * Unable to determine * If a pressure ulcer, please also include the stage* of the ulcer: * Stage 1 - Skin intact, non-blanchable redness * Stage 2 - Partial thickness loss of dermis, includes intact or open blister * Stage 3 - Full thickness tissue not including bone, tendon, or muscle * Stage 4 - Full thickness tissue loss, including exposed bones, tendon, or muscle * Unstageable - Full thickness tissue loss in which the base of the ulcer is covered by slough (yellow, griggs, us, green or brown) and/or eschar (griggs, brown, or black) in the wound bed. * Suspected deep tissue injury - Purple or maroon localized area of discolored intact skin or blood-filled blister due to damage of underlying soft tissues from pressure and/or shear. The area may be preceded by tissue that is painful, firm, mushy, boggy, warmer, or cooler as compare to adjacent tissue. * Unable to determine *Source: National Pressure Ulcer Advisory Panel (NPUAP) Use of terms such as suspected, likely, concern for, or probable (associated with a specific diagnosis that is being evaluated, monitored, or treated as if it exists) are acceptable and can be coded in the inpatient setting, when documented at the time of discharge. Thank you, Aye Bruce RN Extension: [phone] Please use your independent medical judgment in providing your response. THIS QUERY IS PART OF THE PERMANENT MEDICAL RECORD Provider Response: Other Other Diagnosis: stage III pressure ulcer right heel
--- NOTE | 2021-02-05 12:30 | MHC.CDI.CONC ---
CDI Concurrent Query Documentation Clarification: PHYSICIAN'S DOCUMENTATION REQUEST Date of Query: 02/05/21 1231 Patient Name: Edilia Patel Admit Date: 01/30/21 Dear Doctor, A review of the medical record indicates additional documentation may be indicated. Please review below and update the documentation accordingly. Clinical Indicators: Risk Factors/Clinical Indicators/Treatments per MD progress note 01/31/21, infected right heel ulcer present on admission Based on the above, could you please provide, in the Progress Notes, further information regarding the ulcer/wound: Type (etiology) of ulcer/wound: Diabetic ulcer Venous stasis ulcer Arterial (ischemic) ulcer Pressure (decubitus) ulcer Traumatic wound Non-healing surgical wound Other Unable to determine For a non-pressure ulcer, please indicate the depth/severity: Limited to the breakdown of skin With fat layer exposed With necrosis of muscle With necrosis of bone Other Unable to determine If a pressure ulcer, please also include the stage* of the ulcer: Stage 1 - Skin intact, non-blanchable redness Stage 2 - Partial thickness loss of dermis, includes intact or open blister Stage 3 - Full thickness tissue not including bone, tendon, or muscle Stage 4 - Full thickness tissue loss, including exposed bones, tendon, or muscle Unstageable - Full thickness tissue loss in which the base of the ulcer is covered by slough (yellow, griggs, us, green or brown) and/or eschar (griggs, brown, or black) in the wound bed. Suspected deep tissue injury - Purple or maroon localized area of discolored intact skin or blood-filled blister due to damage of underlying soft tissues from pressure and/or shear. The area may be preceded by tissue that is painful, firm, mushy, boggy, warmer, or cooler as compare to adjacent tissue. Unable to determine *Source: National Pressure Ulcer Advisory Panel (NPUAP) Use of terms such as suspected, likely, concern for, or probable (associated with a specific diagnosis that is being evaluated, monitored, or treated as if it exists) are acceptable and can be coded in the inpatient setting, when documented at the time of discharge. Thank you, Aye Bruce RN Extension: [phone] Please use your independent medical judgment in providing your response. THIS QUERY IS PART OF THE PERMANENT MEDICAL RECORD Provider Response: Other Other Diagnosis: stage III pressure ulcer right heel
[2021-02-05] MEDS: Doxycycline Hyclate 100 MG in 0.9 % Sodium Chloride 250 ML 166.67 MG IV (12:51)
[2021-02-05] MEDS: lamoTRIgine 100 MG TABLET PO (20:56)
[2021-02-05] MEDS: Mirtazapine 15 MG TABLET PO (20:56)
[2021-02-05] MEDS: Collagenase Clostridium Hist. 30 GM TUBE 1 APPL TOPICAL (21:00)
[2021-02-06] MEDS: 0.9 % Sodium Chloride Flush 3 ML SYRINGE IVFLUSH ×4 (00:22→20:21)
[2021-02-06] MEDS: Doxycycline Hyclate 100 MG in 0.9 % Sodium Chloride 250 ML 166.67 MG IV ×2 (00:22→13:39)
[2021-02-06 04:00] VITALS: BP 114/78; PULSE 67; RESP 18; TEMP 36.4; O2SAT 96
[2021-02-06] MEDS: Levothyroxine Sodium 50 MCG TABLET PO (05:57)
[2021-02-06 07:22] VITALS: BP 135/81; PULSE 55; RESP 19; TEMP 36.1; O2SAT 98
[2021-02-06 07:38] LABS: Hematocrit 32.7 % (37.0-47.0); Hemoglobin 9.5 g/dl (12.0-16.0); Mean Corpuscular HGB Conc 29.1 g/dl (31.0-35.0); Mean Corpuscular Hemoglobin 25.4 pg (27.0-33.0); Mean Corpuscular Volume 87.4 fL (80.0-98.0); Mean Platelet Volume 9.2 fL (9.4-12.3); Platelet Count 276 X10*3/uL (160-400); Red Blood Count 3.74 X10*6/uL (4.20-5.50); Red Cell Distribution Width 18.1 % (11.0-16.0); White Blood Count 5.2 X10*3/uL (4.8-10.8)
[2021-02-06 07:46] LABS: D Dimer High Sensitivity 411 NG/ML
[2021-02-06 08:11] LABS: Alanine Aminotransferase 14 U/L (0-31); Albumin Level 2.4 g/dL (3.5-5.0); Alkaline Phosphatase 60 U/L (39-117); Anion Gap 10 (12-20); Aspartate Amino Transferase 15 U/L (5-31); Bilirubin Direct < 0.2 mg/dL (0.0-0.5); Bilirubin Total 0.2 mg/dL (0.0-1.0); Blood Urea Nitrogen 12 mg/dL (9-16); C Reactive Protein 0.67 mg/dL (< or = 0.50); Calcium 8.3 mg/dL (8.4-10.2); Carbon Dioxide 33 mmol/L (22-29); Chloride 102 mmol/L (96-108); Creatinine Clr Calc Pharmacy 79.6; Estimated Glomerular Filt Rate > 60; Glucose Fasting 112 mg/dL (60-99); Lactate Dehydrogenase 203 U/L (122-220); Magnesium 1.6 mg/dL (1.6-2.6); Potassium 3.7 mmol/L (3.3-5.1); Sodium 141 mmol/L (135-145); Total Protein 4.8 g/dL (6.5-8.0)
[2021-02-06] MEDS: polyethylene glycoL 3350 17 GM POWD.PACK PO (10:31)
[2021-02-06 10:32] VITALS: BP 135/81; PULSE 55
[2021-02-06] MEDS: lisinopriL 2.5 MG TABLET PO (10:32)
[2021-02-06] MEDS: Sennosides 8.6 MG TABLET 17.2 MG PO (10:32)
[2021-02-06] MEDS: busPIRone HCl 5 MG TABLET PO ×3 (10:33→20:21)
[2021-02-06] MEDS: risperiDONE 2 MG TABLET PO ×2 (10:33→20:21)
[2021-02-06] MEDS: methADONE HCl 20 MG/2 ML ORAL.CONC 10 MG PO ×2 (10:34→20:20)
[2021-02-06] MEDS: dexAMETHasone sod phosphate 4 MG/ML VIAL 6 MG IVPUSH (10:34)
[2021-02-06] MEDS: Apixaban 5 MG TABLET PO ×2 (10:34→20:21)
[2021-02-06] MEDS: Gabapentin 100 MG CAPSULE 500 MG PO ×3 (10:35→20:20)
[2021-02-06] MEDS: DULoxetine HCl 60 MG CAPSULE.DR PO (10:36)
[2021-02-06 11:02] VITALS: BP 99/60; PULSE 67; RESP 20; TEMP 36.4; O2SAT 94
--- NOTE | 2021-02-06 12:07 | HO.PM.IMPN ---
Subjective Subjective Date of Service: 02/06/21 Interval History: the patient was seen and evaluated this morning Laying in bed, feels some improvement, oxygen requirement decreasing Tolerating diet, moving her bowels No reported other overnight events. Systemic review: No fever, chills or weakness No chest pain, palpitation No shortness of breath or coughing No abdominal pain, nausea or vomiting No urinary symptoms Right leg wound Physical Exam Vital Signs: Vital Signs: Last Vital Signs Temp 97.6 F 02/06/21 11:02 Pulse 67 02/06/21 11:02 Resp 20 02/06/21 11:02 BP 99/60 02/06/21 11:02 Pulse Ox 94 02/06/21 11:02 BMI result Body Mass Index 19.8 Const: Other: Constitutional : Alert, oriented, in mild respiratory distress Neck : Normal inspection, Supple Cardiovascular : Good pulsation, no lower extremity edema Respiratory : Chest wall moving bilaterally, no wheezes, on oxygen supplement Gastrointestinal: soft, lax, Normal bowel sounds, Non tender Skin : Warm, Dry Neurological : Alert & oriented x3, No focal deficit Objective Data Active Medications Al Hydroxide/Mg Hydroxide (Magnesium Hydrox/Alum Hydrox 30 Ml Oral.Susp) 30 ml PO Q4H PRN PRN Reason: GERD Alprazolam (Alprazolam 0.5 Mg Tablet) 0.5 mg PO Q8H PRN PRN Reason: Anxiety Apixaban (Apixaban 5 Mg Tablet) 5 mg PO BID [facility] Last Admin: 02/06/21 10:34 Dose: 5 mg Documented by: SCOTT Buspirone HCl (Buspirone Hcl 5 Mg Tablet) 5 mg PO TID [facility] Last Admin: 02/06/21 10:33 Dose: 5 mg Documented by: SCOTT Collagenase (Collagenase Clostridium Hist. 30 Gm Tube) 1 appl TOPICAL BEDTIME [facility]; Protocol Last Admin: 02/05/21 21:00 Dose: 1 appl Documented by: SEAN Dexamethasone Sodium Phosphate (Dexamethasone Sod Phosphate 4 Mg/Ml Vial) 6 mg IVPUSH DAILY [facility] Last Admin: 02/06/21 10:34 Dose: 6 mg Documented by: SCOTT Duloxetine HCl (Duloxetine Hcl 60 Mg Capsule.) 60 mg PO DAILY [facility] Last Admin: 02/06/21 10:36 Dose: 60 mg Documented by: SCOTT Gabapentin (Gabapentin 100 Mg Capsule) 500 mg PO TID [facility] Last Admin: 02/06/21 10:35 Dose: 500 mg Documented by: SCOTT Doxycycline Hyclate 100 mg/ (Sodium Chloride) 250 mls @ 166.67 mls/hr IV Q12H [facility] Last Infusion: 02/06/21 05:56 Dose: 0 mls/hr Documented by: PHUC Lamotrigine (Lamotrigine 100 Mg Tablet) 100 mg PO BEDTIME [facility] Last Admin: 02/05/21 20:56 Dose: 100 mg Documented by: SEAN Levothyroxine Sodium (Levothyroxine Sodium 50 Mcg Tablet) 50 mcg PO DAILY@0600 [facility] Last Admin: 02/06/21 05:57 Dose: 50 mcg Documented by: PHUC Lisinopril (Lisinopril 2.5 Mg Tablet) 2.5 mg PO DAILY [facility]; Protocol Last Admin: 02/06/21 10:32 Dose: 2.5 mg Documented by: SCOTT Methadone HCl (Methadone Hcl 20 Mg/2 Ml Oral.Conc) 10 mg PO DAILY PRN PRN Reason: OPIOID ADDICATION Methadone HCl (Methadone Hcl 20 Mg/2 Ml Oral.Conc) 10 mg PO BID [facility] Last Admin: 02/06/21 10:34 Dose: 10 mg Documented by: SCOTT Mirtazapine (Mirtazapine 15 Mg Tablet) 15 mg PO BEDTIME [facility] Last Admin: 02/05/21 20:56 Dose: 15 mg Documented by: SEAN Pharmacy Consult (Consult Rx Perform Med Rec) 1 each MISCELLANE ONCE PRN PRN Reason: Consult order Polyethylene Glycol (Polyethylene Glycol 3350 17 Gm Powd.Pack) 17 gm PO DAILY [facility] Last Admin: 02/06/21 10:31 Dose: 17 gm Documented by: SCOTT Risperidone (Risperidone 2 Mg Tablet) 2 mg PO BID [facility] Last Admin: 02/06/21 10:33 Dose: 2 mg Documented by: SCOTT Senna (Sennosides 8.6 Mg Tablet) 17.2 mg PO DAILY [facility] Last Admin: 02/06/21 10:32 Dose: 17.2 mg Documented by: SCOTT Sodium Chloride (0.9 % Sodium Chloride Flush 3 Ml Syringe) 3 ml IVFLUSH QSHIFT [facility] Last Admin: 02/06/21 10:31 Dose: 3 ml Documented by: SCOTT Tiotropium [place] (Tiotropium [place] 18 Mcg Cap.W.Dev) 2 puff INHALE RDAILY [facility] Last Admin: 02/06/21 07:52 Dose: Not Given Documented by: MARTÍN Non-Admin Reason: See Note Labs CBC & Chem 7: 02/06/21 06:42 02/06/21 06:42 Labs: Laboratory Results - last 24 hr 02/06/21 02/06/21 02/06/21 06:42 06:42 06:42 MCV 87.4 MCH 25.4 L MCHC 29.1 L RDW 18.1 H Plt Count 276 MPV 9.2 L Absolute Nucleated RBC 0.000 Nucleated RBC % (auto) 0.0 D-Dimer High Sensitivty 411 Anion Gap 10 L Estim Creat Clear Calc 79.6 Estimated GFR > 60 Fasting Glucose 112 H Calcium 8.3 L Magnesium 1.6 Total Bilirubin 0.2 Direct Bilirubin < 0.2 AST 15 D ALT 14 Alkaline Phosphatase 60 D Lactate Dehydrogenase 203 C-Reactive Protein 0.67 H Total Protein 4.8 L Albumin 2.4 L Microbiology Microbiology Results: Microbiology 02/01/21 06:12 Blood Culture - Final Blood - Venous No growth after 5 days. 02/01/21 06:12 Blood Culture - Final Blood - Venous No growth after 5 days. Assessment and Plan (1) Pneumonia due to 2019-nCoV: Status: Acute (2) Acute respiratory failure with hypoxia: Status: Acute (3) Cellulitis of heel, right: Status: Acute Assessment and Plan: ?70F with known covid, found to be unresponsive, hypoxic, and painful right heel ulcer, now with GPC in blood acute hypoxic respiratory failure and metabolic encephalopathy due to covid pneumonia Mentation improving decadron day 8, wean o2 as tolerated Decrease oxygen supplement to 8 L only from high-flow infected right heel ulcer with cellulitis turned out to be coag negative, likely contaminant plan for 8 weeks of doxy (can be po) (end mar 28, 2021) s/p bedside debridement 02/01/21 [facility] dementia, 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
--- NOTE | 2021-02-06 13:31 | MHC.CM.PN ---
Female 70 DX Covid+ no dc today. Patient requires 8L via HF. The NRB is not needed. Pt is on HF only. DP return to [facility] via BLS.
[2021-02-06 15:20] VITALS: BP 111/65; PULSE 73; RESP 18; TEMP 37.2; O2SAT 96
[2021-02-06 19:21] VITALS: BP 101/66; PULSE 87; RESP 18; TEMP 37.1; O2SAT 97
[2021-02-06] MEDS: lamoTRIgine 100 MG TABLET PO (20:20)
[2021-02-06] MEDS: Collagenase Clostridium Hist. 30 GM TUBE 1 APPL TOPICAL (20:21)
[2021-02-06] MEDS: Mirtazapine 15 MG TABLET PO (20:21)
[2021-02-07] VITALS (7 sets, daily range): BP systolic 94–128; BP diastolic 64–83; PULSE 75–89; RESP 18–20; TEMP 36.3–37.1; O2SAT 91–97
[2021-02-07] MEDS: Doxycycline Hyclate 100 MG in 0.9 % Sodium Chloride 250 ML 166.67 MG IV ×2 (01:40→14:25)
[2021-02-07] MEDS: Levothyroxine Sodium 50 MCG TABLET PO (06:07)
[2021-02-07 06:42] LABS: Anion Gap 10 (12-20); Blood Urea Nitrogen 14 mg/dL (9-16); Calcium 8.6 mg/dL (8.4-10.2); Carbon Dioxide 34 mmol/L (22-29); Chloride 102 mmol/L (96-108); Creatinine Clr Calc Pharmacy 79.6; Estimated Glomerular Filt Rate > 60; Glucose Random 83 mg/dL (60-115); Potassium 4.1 mmol/L (3.3-5.1); Sodium 142 mmol/L (135-145)
[2021-02-07] MEDS: Gabapentin 100 MG CAPSULE 500 MG PO ×3 (09:25→19:29)
[2021-02-07] MEDS: dexAMETHasone sod phosphate 4 MG/ML VIAL 6 MG IVPUSH (09:25)
[2021-02-07] MEDS: Sennosides 8.6 MG TABLET 17.2 MG PO (09:26)
[2021-02-07] MEDS: polyethylene glycoL 3350 17 GM POWD.PACK PO (09:26)
[2021-02-07] MEDS: Apixaban 5 MG TABLET PO ×2 (09:26→19:30)
[2021-02-07] MEDS: methADONE HCl 20 MG/2 ML ORAL.CONC 10 MG PO ×2 (09:27→19:29)
[2021-02-07] MEDS: DULoxetine HCl 60 MG CAPSULE.DR PO (09:27)
[2021-02-07] MEDS: 0.9 % Sodium Chloride Flush 3 ML SYRINGE IVFLUSH ×3 (09:27→19:30)
[2021-02-07] MEDS: risperiDONE 2 MG TABLET PO ×2 (09:27→19:30)
[2021-02-07] MEDS: busPIRone HCl 5 MG TABLET PO ×3 (09:27→19:30)
--- NOTE | 2021-02-07 10:26 | P.PNIM_ITS ---
Subjective Subjective Date of Service: 02/07/21 Interval History: The patient was seen and evaluated this morning Laying in bed, improving, oxygen requirement decreasing Tolerating diet, moving her bowels No reported other overnight events. Systemic review: No fever, chills or weakness No chest pain, palpitation No shortness of breath or coughing No abdominal pain, nausea or vomiting No urinary symptoms Right leg wound Physical Exam Vital Signs: Vital Signs: Last Vital Signs Temp 97.6 F 02/07/21 07:28 Pulse 79 02/07/21 07:28 Resp 20 02/07/21 07:28 BP 105/76 02/07/21 07:28 Pulse Ox 91 L 02/07/21 07:28 BMI result Body Mass Index 19.8 Const: Other: Constitutional : Alert, oriented, in mild respiratory distress Neck : Normal inspection, Supple Cardiovascular : Good pulsation, no lower extremity edema Respiratory : Chest wall moving bilaterally, no wheezes, on oxygen supplement Gastrointestinal: soft, lax, Normal bowel sounds, Non tender Skin : Warm, Dry Neurological : Alert & oriented x3, No focal deficit Objective Data Active Medications Al Hydroxide/Mg Hydroxide (Magnesium Hydrox/Alum Hydrox 30 Ml Oral.Susp) 30 ml PO Q4H PRN PRN Reason: GERD Alprazolam (Alprazolam 0.5 Mg Tablet) 0.5 mg PO Q8H PRN PRN Reason: Anxiety Apixaban (Apixaban 5 Mg Tablet) 5 mg PO BID [facility] Last Admin: 02/07/21 09:26 Dose: 5 mg Documented by: RONY Buspirone HCl (Buspirone Hcl 5 Mg Tablet) 5 mg PO TID [facility] Last Admin: 02/07/21 09:27 Dose: 5 mg Documented by: RONY Collagenase (Collagenase Clostridium Hist. 30 Gm Tube) 1 appl TOPICAL BEDTIME [facility]; Protocol Last Admin: 02/06/21 20:21 Dose: 1 appl Documented by: MOLINA Dexamethasone Sodium Phosphate (Dexamethasone Sod Phosphate 4 Mg/Ml Vial) 6 mg IVPUSH DAILY [facility] Last Admin: 02/07/21 09:25 Dose: 6 mg Documented by: RONY Duloxetine HCl (Duloxetine Hcl 60 Mg Capsule.) 60 mg PO DAILY [facility] Last Admin: 02/07/21 09:27 Dose: 60 mg Documented by: RONY Gabapentin (Gabapentin 100 Mg Capsule) 500 mg PO TID [facility] Last Admin: 02/07/21 09:25 Dose: 500 mg Documented by: RONY Doxycycline Hyclate 100 mg/ (Sodium Chloride) 250 mls @ 166.67 mls/hr IV Q12H [facility] Last Infusion: 02/07/21 04:43 Dose: 0 mls/hr Documented by: MOLINA Lamotrigine (Lamotrigine 100 Mg Tablet) 100 mg PO BEDTIME [facility] Last Admin: 02/06/21 20:20 Dose: 100 mg Documented by: MOLINA Levothyroxine Sodium (Levothyroxine Sodium 50 Mcg Tablet) 50 mcg PO DAILY@0600 [facility] Last Admin: 02/07/21 06:07 Dose: 50 mcg Documented by: MOLINA Lisinopril (Lisinopril 2.5 Mg Tablet) 2.5 mg PO DAILY [facility]; Protocol Last Admin: 02/07/21 09:28 Dose: Not Given Documented by: RONY Non-Admin Reason: Decreased Blood Pressure Methadone HCl (Methadone Hcl 20 Mg/2 Ml Oral.Conc) 10 mg PO DAILY PRN PRN Reason: OPIOID ADDICATION Methadone HCl (Methadone Hcl 20 Mg/2 Ml Oral.Conc) 10 mg PO BID [facility] Last Admin: 02/07/21 09:27 Dose: 10 mg Documented by: RONY Mirtazapine (Mirtazapine 15 Mg Tablet) 15 mg PO BEDTIME [facility] Last Admin: 02/06/21 20:21 Dose: 15 mg Documented by: MOLINA Pharmacy Consult (Consult Rx Perform Med Rec) 1 each MISCELLANE ONCE PRN PRN Reason: Consult order Polyethylene Glycol (Polyethylene Glycol 3350 17 Gm Powd.Pack) 17 gm PO DAILY [facility] Last Admin: 02/07/21 09:26 Dose: 17 gm Documented by: RONY Risperidone (Risperidone 2 Mg Tablet) 2 mg PO BID [facility] Last Admin: 02/07/21 09:27 Dose: 2 mg Documented by: RONY Senna (Sennosides 8.6 Mg Tablet) 17.2 mg PO DAILY [facility] Last Admin: 02/07/21 09:26 Dose: 17.2 mg Documented by: RONY Sodium Chloride (0.9 % Sodium Chloride Flush 3 Ml Syringe) 3 ml IVFLUSH QSHIFT [facility] Last Admin: 02/07/21 09:27 Dose: 3 ml Documented by: RONY Tiotropium [place] (Tiotropium [place] 18 Mcg Cap.W.Dev) 2 puff INHALE RDAILY [facility] Last Admin: 02/07/21 07:42 Dose: Not Given Documented by: MARTÍN Non-Admin Reason: See Note Labs CBC & Chem 7: 02/06/21 06:42 02/07/21 05:44 Labs: Laboratory Results - last 24 hr 02/07/21 05:44 Anion Gap 10 L Estim Creat Clear Calc 79.6 Estimated GFR > 60 Random Glucose 83 Calcium 8.6 Microbiology Microbiology Results: Microbiology 02/01/21 06:12 Blood Culture - Final Blood - Venous No growth after 5 days. 02/01/21 06:12 Blood Culture - Final Blood - Venous No growth after 5 days. Assessment and Plan (1) Acute respiratory failure with hypoxia: Status: Acute (2) Pneumonia due to 2019-nCoV: Status: Acute (3) Cellulitis of heel, right: Status: Acute Assessment and Plan: ?70F with known covid, found to be unresponsive, hypoxic, and painful right heel ulcer, now with GPC in blood acute hypoxic respiratory failure and metabolic encephalopathy due to covid pneumonia Mentation improving decadron day 9, wean o2 as tolerated Decrease oxygen supplement to 8 L from high-flow infected right heel ulcer with cellulitis turned out to be coag negative, likely contaminant plan for 8 weeks of doxy (can be po) (end mar 28, 2021) s/p bedside debridement 02/01/21 [facility] dementia, 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
[2021-02-07] MEDS: lamoTRIgine 100 MG TABLET PO (19:29)
[2021-02-07] MEDS: Mirtazapine 15 MG TABLET PO (19:30)
[2021-02-07] MEDS: Collagenase Clostridium Hist. 30 GM TUBE 1 APPL TOPICAL (19:30)
[2021-02-08] VITALS (7 sets, daily range): BP systolic 81–139; BP diastolic 52–86; PULSE 72–92; RESP 18–22; TEMP 36.4–37.7; O2SAT 90–100; BMI 19.8
[2021-02-08] MEDS: Doxycycline Hyclate 100 MG in 0.9 % Sodium Chloride 250 ML 166.67 MG IV ×2 (01:18→15:10)
[2021-02-08] MEDS: Levothyroxine Sodium 50 MCG TABLET PO (05:41)
[2021-02-08] MEDS: dexAMETHasone sod phosphate 4 MG/ML VIAL 6 MG IVPUSH (08:46)
[2021-02-08] MEDS: methADONE HCl 20 MG/2 ML ORAL.CONC 10 MG PO ×2 (08:49→21:15)
[2021-02-08] MEDS: risperiDONE 2 MG TABLET PO ×2 (08:50→21:15)
[2021-02-08] MEDS: lisinopriL 2.5 MG TABLET PO (08:50)
[2021-02-08] MEDS: busPIRone HCl 5 MG TABLET PO ×3 (08:50→21:14)
[2021-02-08] MEDS: Sennosides 8.6 MG TABLET 17.2 MG PO (08:51)
[2021-02-08] MEDS: Apixaban 5 MG TABLET PO ×2 (08:51→21:15)
[2021-02-08] MEDS: DULoxetine HCl 60 MG CAPSULE.DR PO (08:51)
[2021-02-08] MEDS: Gabapentin 100 MG CAPSULE 500 MG PO ×3 (08:53→21:15)
[2021-02-08] MEDS: polyethylene glycoL 3350 17 GM POWD.PACK PO (08:55)
[2021-02-08] MEDS: 0.9 % Sodium Chloride Flush 3 ML SYRINGE IVFLUSH ×3 (08:55→21:15)
[2021-02-08 11:22] LABS: Alanine Aminotransferase 14 U/L (0-31); Albumin Level 2.6 g/dL (3.5-5.0); Alkaline Phosphatase 71 U/L (39-117); Anion Gap 10 (12-20); Aspartate Amino Transferase 15 U/L (5-31); Bilirubin Total 0.2 mg/dL (0.0-1.0); Blood Urea Nitrogen 14 mg/dL (9-16); C Reactive Protein 0.54 mg/dL (< or = 0.50); Calcium 8.6 mg/dL (8.4-10.2); Carbon Dioxide 35 mmol/L (22-29); Chloride 101 mmol/L (96-108); Creatinine Clr Calc Pharmacy 82.5; Estimated Glomerular Filt Rate > 60; Glucose Random 72 mg/dL (60-115); Lactate Dehydrogenase 208 U/L (122-220); Potassium 4.7 mmol/L (3.3-5.1); Sodium 141 mmol/L (135-145); Total Protein 5.2 g/dL (6.5-8.0)
--- NOTE | 2021-02-08 11:41 | MHC.CM.PN ---
Per ROUNDS discussion,Patient is not yet medically cleared for dc (IV Decadron, IV Doxycycline, 8LO2). Returning to LTC at [facility] is the goal and CM will follow for dc planning.
--- NOTE | 2021-02-08 12:20 | HO.PM.IMPN ---
Subjective Subjective Date of Service: 02/08/21 Interval History: The patient was seen and evaluated this morning Laying in bed, feels better today, oxygen requirement decreasing Tolerating diet, moving her bowels No reported other overnight events. Systemic review: No fever, chills or weakness No chest pain, palpitation Having shortness of breath with minimal exertion No abdominal pain, nausea or vomiting No urinary symptoms Right leg wound Physical Exam Vital Signs: Vital Signs: Last Vital Signs Temp 98.1 F 02/08/21 11:38 Pulse 72 02/08/21 11:38 Resp 18 02/08/21 11:38 BP 112/62 02/08/21 11:38 Pulse Ox 98 02/08/21 11:38 BMI result Body Mass Index 19.8 Const: Other: Constitutional : Alert, oriented, in mild respiratory distress Neck : Normal inspection, Supple Cardiovascular : Good pulsation, no lower extremity edema Respiratory : Chest wall moving bilaterally, no wheezes, on oxygen supplement Gastrointestinal: soft, lax, Normal bowel sounds, Non tender Skin : Warm, Dry Neurological : Alert & oriented x3, No focal deficit Objective Data Active Medications Al Hydroxide/Mg Hydroxide (Magnesium Hydrox/Alum Hydrox 30 Ml Oral.Susp) 30 ml PO Q4H PRN PRN Reason: GERD Alprazolam (Alprazolam 0.5 Mg Tablet) 0.5 mg PO Q8H PRN PRN Reason: Anxiety Apixaban (Apixaban 5 Mg Tablet) 5 mg PO BID [facility] Last Admin: 02/08/21 08:51 Dose: 5 mg Documented by: BILLY Buspirone HCl (Buspirone Hcl 5 Mg Tablet) 5 mg PO TID [facility] Last Admin: 02/08/21 08:50 Dose: 5 mg Documented by: BILLY Collagenase (Collagenase Clostridium Hist. 30 Gm Tube) 1 appl TOPICAL BEDTIME [facility]; Protocol Last Admin: 02/07/21 19:30 Dose: 1 appl Documented by: MOLINA Dexamethasone Sodium Phosphate (Dexamethasone Sod Phosphate 4 Mg/Ml Vial) 6 mg IVPUSH DAILY [facility] Last Admin: 02/08/21 08:46 Dose: 6 mg Documented by: BILLY Duloxetine HCl (Duloxetine Hcl 60 Mg Capsule.Dr) 60 mg PO DAILY [facility] Last Admin: 02/08/21 08:51 Dose: 60 mg Documented by: BILLY Gabapentin (Gabapentin 100 Mg Capsule) 500 mg PO TID [facility] Last Admin: 02/08/21 08:53 Dose: 500 mg Documented by: BILLY Doxycycline Hyclate 100 mg/ (Sodium Chloride) 250 mls @ 166.67 mls/hr IV Q12H [facility] Last Infusion: 02/08/21 03:09 Dose: 0 mls/hr Documented by: MOLINA Lamotrigine (Lamotrigine 100 Mg Tablet) 100 mg PO BEDTIME [facility] Last Admin: 02/07/21 19:29 Dose: 100 mg Documented by: MOLINA Levothyroxine Sodium (Levothyroxine Sodium 50 Mcg Tablet) 50 mcg PO DAILY@0600 [facility] Last Admin: 02/08/21 05:41 Dose: 50 mcg Documented by: MOLINA Lisinopril (Lisinopril 2.5 Mg Tablet) 2.5 mg PO DAILY [facility]; Protocol Last Admin: 02/08/21 08:50 Dose: 2.5 mg Documented by: BILLY Methadone HCl (Methadone Hcl 20 Mg/2 Ml Oral.Conc) 10 mg PO DAILY PRN PRN Reason: OPIOID ADDICATION Methadone HCl (Methadone Hcl 20 Mg/2 Ml Oral.Conc) 10 mg PO BID [facility] Last Admin: 02/08/21 08:49 Dose: 10 mg Documented by: BILLY Mirtazapine (Mirtazapine 15 Mg Tablet) 15 mg PO BEDTIME [facility] Last Admin: 02/07/21 19:30 Dose: 15 mg Documented by: MOLINA Pharmacy Consult (Consult Rx Perform Med Rec) 1 each MISCELLANE ONCE PRN PRN Reason: Consult order Polyethylene Glycol (Polyethylene Glycol 3350 17 Gm Powd.Pack) 17 gm PO DAILY [facility] Last Admin: 02/08/21 08:55 Dose: 17 gm Documented by: BILLY Risperidone (Risperidone 2 Mg Tablet) 2 mg PO BID [facility] Last Admin: 02/08/21 08:50 Dose: 2 mg Documented by: BILLY Senna (Sennosides 8.6 Mg Tablet) 17.2 mg PO DAILY [facility] Last Admin: 02/08/21 08:51 Dose: 17.2 mg Documented by: BILLY Sodium Chloride (0.9 % Sodium Chloride Flush 3 Ml Syringe) 3 ml IVFLUSH QSHIFT [facility] Last Admin: 02/08/21 08:55 Dose: 3 ml Documented by: BILLY Tiotropium [place] (Tiotropium [place] 18 Mcg Cap.W.Dev) 2 puff INHALE RDAILY [facility] Last Admin: 02/08/21 07:38 Dose: Not Given Documented by: MIGDALIA Non-Admin Reason: Patient Asleep Labs CBC & Chem 7: 02/06/21 06:42 02/08/21 06:19 Labs: Laboratory Results - last 24 hr 02/08/21 06:19 Anion Gap 10 L Estim Creat Clear Calc 82.5 Estimated GFR > 60 Random Glucose 72 Calcium 8.6 Total Bilirubin 0.2 AST 15 ALT 14 Alkaline Phosphatase 71 Lactate Dehydrogenase 208 C-Reactive Protein 0.54 H Total Protein 5.2 L Albumin 2.6 L Assessment and Plan (1) Cellulitis of heel, right: Status: Acute (2) Acute respiratory failure with hypoxia: Status: Acute (3) Pneumonia due to 2019-nCoV: Status: Acute Assessment and Plan: ?70F with known covid, found to be unresponsive, hypoxic, and painful right heel ulcer, now with GPC in blood acute hypoxic respiratory failure and metabolic encephalopathy due to covid pneumonia Mentation improving decadron day 10, to DC Continue to wean down as tolerated infected right heel ulcer with cellulitis turned out to be coag negative, likely contaminant plan for 8 weeks of doxy (can be po) (end mar 28, 2021) s/p bedside debridement 02/01/21 [facility] dementia, 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
--- NOTE | 2021-02-08 16:35 | PC.NURSE ---
Report given to Adriane, RN
[2021-02-08] MEDS: Mirtazapine 15 MG TABLET PO (21:14)
[2021-02-08] MEDS: Collagenase Clostridium Hist. 30 GM TUBE 1 APPL TOPICAL (21:15)
[2021-02-08] MEDS: lamoTRIgine 100 MG TABLET PO (21:15)
[2021-02-09] VITALS (14 sets, daily range): BP systolic 96–127; BP diastolic 55–83; PULSE 71–109; RESP 18–22; TEMP 36.1–37.2; O2SAT 84–100
[2021-02-09] MEDS: Doxycycline Hyclate 100 MG in 0.9 % Sodium Chloride 250 ML 166.67 MG IV ×2 (02:12→12:21)
[2021-02-09] MEDS: Levothyroxine Sodium 50 MCG TABLET PO (06:17)
[2021-02-09] MEDS: methADONE HCl 20 MG/2 ML ORAL.CONC 10 MG PO ×2 (09:54→21:36)
[2021-02-09] MEDS: risperiDONE 2 MG TABLET PO ×2 (09:54→21:36)
[2021-02-09] MEDS: lisinopriL 2.5 MG TABLET PO (09:54)
[2021-02-09] MEDS: Gabapentin 100 MG CAPSULE 500 MG PO ×3 (09:54→21:36)
[2021-02-09] MEDS: Apixaban 5 MG TABLET PO ×2 (09:54→21:36)
[2021-02-09] MEDS: busPIRone HCl 5 MG TABLET PO ×3 (09:55→21:36)
[2021-02-09] MEDS: dexAMETHasone sod phosphate 4 MG/ML VIAL 6 MG IVPUSH (09:55)
[2021-02-09] MEDS: DULoxetine HCl 60 MG CAPSULE.DR PO (09:55)
[2021-02-09] MEDS: Sennosides 8.6 MG TABLET 17.2 MG PO (09:55)
[2021-02-09] MEDS: polyethylene glycoL 3350 17 GM POWD.PACK PO (09:55)
[2021-02-09] MEDS: 0.9 % Sodium Chloride Flush 3 ML SYRINGE IVFLUSH ×2 (09:55→15:48)
[2021-02-09 10:09] LABS: Anion Gap 8 (12-20); Blood Urea Nitrogen 14 mg/dL (9-16); Carbon Dioxide 39 mmol/L (22-29); Chloride 99 mmol/L (96-108); Creatinine Clr Calc Pharmacy 76.9; Estimated Glomerular Filt Rate > 60; Glucose Random 72 mg/dL (60-115); Potassium 4.6 mmol/L (3.3-5.1); Sodium 141 mmol/L (135-145)
--- NOTE | 2021-02-09 10:55 | P.PNIM_ITS ---
Subjective Subjective Date of Service: 02/09/21 Interval History: The patient was seen and evaluated this morning Laying in bed, Increased oxygen requirement overnight, placed on high-flow earlier this morning Tolerating diet, moving her bowels No reported other overnight events. Systemic review: No fever, chills or weakness No chest pain, palpitation Increase shortness of breath with minimal exertion No abdominal pain, nausea or vomiting No urinary symptoms Right leg wound Physical Exam Vital Signs: Vital Signs: Last Vital Signs Temp 98.5 F 02/09/21 07:56 Pulse 89 02/09/21 09:54 Resp 18 02/09/21 09:19 BP 123/83 02/09/21 09:54 Pulse Ox 94 02/09/21 07:56 BMI result Body Mass Index 19.8 Const: Other: Constitutional : Alert, oriented, in mild respiratory distress Neck : Normal inspection, Supple Cardiovascular : Good pulsation, no lower extremity edema Respiratory : Chest wall moving bilaterally, no wheezes, in mild distress, on oxygen supplement Gastrointestinal: soft, lax, Normal bowel sounds, Non tender Skin : Warm, Dry Neurological : Alert & oriented x3, No focal deficit Objective Data Active Medications Al Hydroxide/Mg Hydroxide (Magnesium Hydrox/Alum Hydrox 30 Ml Oral.Susp) 30 ml PO Q4H PRN PRN Reason: GERD Apixaban (Apixaban 5 Mg Tablet) 5 mg PO BID [facility] Last Admin: 02/09/21 09:54 Dose: 5 mg Documented by: RONAK Buspirone HCl (Buspirone Hcl 5 Mg Tablet) 5 mg PO TID [facility] Last Admin: 02/09/21 09:55 Dose: 5 mg Documented by: RONAK Collagenase (Collagenase Clostridium Hist. 30 Gm Tube) 1 appl TOPICAL BEDTIME [facility]; Protocol Last Admin: 02/08/21 21:15 Dose: 1 appl Documented by: ANTJACK Dexamethasone Sodium Phosphate (Dexamethasone Sod Phosphate 4 Mg/Ml Vial) 6 mg IVPUSH DAILY [facility] Last Admin: 02/09/21 09:55 Dose: 6 mg Documented by: RONAK Duloxetine HCl (Duloxetine Hcl 60 Mg Capsule.) 60 mg PO DAILY [facility] Last Admin: 02/09/21 09:55 Dose: 60 mg Documented by: RONAK Gabapentin (Gabapentin 100 Mg Capsule) 500 mg PO TID [facility] Last Admin: 02/09/21 09:54 Dose: 500 mg Documented by: RONAK Doxycycline Hyclate 100 mg/ (Sodium Chloride) 250 mls @ 166.67 mls/hr IV Q12H [facility] Last Infusion: 02/09/21 04:01 Dose: 0 mls/hr Documented by: NIGHAT Lamotrigine (Lamotrigine 100 Mg Tablet) 100 mg PO BEDTIME [facility] Last Admin: 02/08/21 21:15 Dose: 100 mg Documented by: NIGHAT Levothyroxine Sodium (Levothyroxine Sodium 50 Mcg Tablet) 50 mcg PO DAILY@0600 [facility] Last Admin: 02/09/21 06:17 Dose: 50 mcg Documented by: NIGHAT Lisinopril (Lisinopril 2.5 Mg Tablet) 2.5 mg PO DAILY [facility]; Protocol Last Admin: 02/09/21 09:54 Dose: 2.5 mg Documented by: RONAK Methadone HCl (Methadone Hcl 20 Mg/2 Ml Oral.Conc) 10 mg PO DAILY PRN PRN Reason: OPIOID ADDICATION Methadone HCl (Methadone Hcl 20 Mg/2 Ml Oral.Conc) 10 mg PO BID [facility] Last Admin: 02/09/21 09:54 Dose: 10 mg Documented by: RONAK Mirtazapine (Mirtazapine 15 Mg Tablet) 15 mg PO BEDTIME [facility] Last Admin: 02/08/21 21:14 Dose: 15 mg Documented by: NIGHAT Pharmacy Consult (Consult Rx Perform Med Rec) 1 each MISCELLANE ONCE PRN PRN Reason: Consult order Polyethylene Glycol (Polyethylene Glycol 3350 17 Gm Powd.Pack) 17 gm PO DAILY [facility] Last Admin: 02/09/21 09:55 Dose: 17 gm Documented by: RONAK Risperidone (Risperidone 2 Mg Tablet) 2 mg PO BID [facility] Last Admin: 02/09/21 09:54 Dose: 2 mg Documented by: RONAK Senna (Sennosides 8.6 Mg Tablet) 17.2 mg PO DAILY [facility] Last Admin: 02/09/21 09:55 Dose: 17.2 mg Documented by: RONAK Sodium Chloride (0.9 % Sodium Chloride Flush 3 Ml Syringe) 3 ml IVFLUSH QSHIFT [facility] Last Admin: 02/09/21 09:55 Dose: 3 ml Documented by: RONAK Tiotropium [place] (Tiotropium [place] 18 Mcg Cap.W.Dev) 2 puff INHALE RDAILY [facility] Last Admin: 02/09/21 07:58 Dose: 2 puff Documented by: BEULAH Labs CBC & Chem 7: 02/06/21 06:42 02/09/21 09:09 Labs: Laboratory Results - last 24 hr 02/08/21 02/09/21 06:19 09:09 Anion Gap 10 L 8 L Estim Creat Clear Calc 82.5 76.9 Estimated GFR > 60 > 60 Random Glucose 72 72 Calcium 8.6 9.0 Total Bilirubin 0.2 AST 15 ALT 14 Alkaline Phosphatase 71 Lactate Dehydrogenase 208 C-Reactive Protein 0.54 H Total Protein 5.2 L Albumin 2.6 L Assessment and Plan (1) Acute respiratory failure with hypoxia: Status: Acute (2) Cellulitis of heel, right: Status: Acute (3) Pneumonia due to 2019-nCoV: Status: Acute Assessment and Plan: ?70F with known covid, found to be unresponsive, hypoxic, and painful right heel ulcer, now with GPC in blood acute hypoxic respiratory failure and metabolic encephalopathy due to covid pneumonia Mentation improving decadron day 10, to DC Increase respiratory distress and oxygen requirement this morning Placed on high-flow, wean down as tolerated infected right heel ulcer with cellulitis turned out to be coag negative, likely contaminant plan for 8 weeks of doxy (can be po) (end mar 28, 2021) s/p bedside debridement 02/01/21 [facility] dementia, 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
--- NOTE | 2021-02-09 16:06 | PC.NURSE ---
0845- Patient's O2 dropping to low 80s on 8L [place]. Patient asymptomatic. Dr. Garner at bedside to assess. Respiratory in room to assess, patient did not respond to NRB. High flow ordered and placed on patient. O2 95% on High Flow 55L. Patient tolerating well, has no complaints at this time.
[2021-02-09] MEDS: Mirtazapine 15 MG TABLET PO (21:36)
[2021-02-09] MEDS: lamoTRIgine 100 MG TABLET PO (21:36)
[2021-02-09] MEDS: Collagenase Clostridium Hist. 30 GM TUBE 1 APPL TOPICAL (21:40)
[2021-02-10] VITALS (13 sets, daily range): BP systolic 84–152; BP diastolic 55–92; PULSE 70–89; RESP 18–22; TEMP 36.1–37.1; O2SAT 90–100
[2021-02-10] MEDS: Levothyroxine Sodium 50 MCG TABLET PO (06:22)
[2021-02-10 07:05] LABS: Anion Gap 12 (12-20); Blood Urea Nitrogen 17 mg/dL (9-16); C Reactive Protein 3.52 mg/dL (< or = 0.50); Calcium 8.5 mg/dL (8.4-10.2); Carbon Dioxide 33 mmol/L (22-29); Chloride 101 mmol/L (96-108); Creatinine Clr Calc Pharmacy 76.9; Estimated Glomerular Filt Rate > 60; Glucose Random 116 mg/dL (60-115); Lactate Dehydrogenase 212 U/L (122-220); Potassium 4.4 mmol/L (3.3-5.1); Sodium 142 mmol/L (135-145)
[2021-02-10] MEDS: Gabapentin 100 MG CAPSULE 500 MG PO ×3 (09:31→21:01)
[2021-02-10] MEDS: lisinopriL 2.5 MG TABLET PO (09:32)
[2021-02-10] MEDS: Apixaban 5 MG TABLET PO ×2 (09:32→21:02)
[2021-02-10] MEDS: polyethylene glycoL 3350 17 GM POWD.PACK PO (09:32)
[2021-02-10] MEDS: busPIRone HCl 5 MG TABLET PO ×3 (09:33→21:01)
[2021-02-10] MEDS: 0.9 % Sodium Chloride Flush 3 ML SYRINGE IVFLUSH ×3 (09:34→21:02)
[2021-02-10] MEDS: Sennosides 8.6 MG TABLET 17.2 MG PO (09:34)
[2021-02-10] MEDS: risperiDONE 2 MG TABLET PO ×2 (09:34→21:02)
[2021-02-10] MEDS: DULoxetine HCl 60 MG CAPSULE.DR PO (09:34)
[2021-02-10] MEDS: dexAMETHasone sod phosphate 4 MG/ML VIAL 6 MG IVPUSH (09:34)
[2021-02-10] MEDS: methADONE HCl 20 MG/2 ML ORAL.CONC 10 MG PO ×2 (09:35→21:01)
--- NOTE | 2021-02-10 12:10 | HO.PM.IMPN ---
Subjective Subjective Date of Service: 02/10/21 Interval History: The patient was seen and evaluated this morning Laying in bed, increased oxygen requirement on high-flow earlier this morning Eating well, Tolerating diet, moving her bowels No reported other overnight events. Systemic review: No fever, chills or weakness No chest pain, palpitation Increase shortness of breath with minimal exertion No abdominal pain, nausea or vomiting No urinary symptoms Right leg wound Physical Exam Vital Signs: Vital Signs: Last Vital Signs Temp 97 F 02/10/21 11:14 Pulse 74 02/10/21 11:14 Resp 18 02/10/21 11:18 BP 132/68 02/10/21 11:14 Pulse Ox 90 L 02/10/21 11:14 BMI result Body Mass Index 19.8 Const: Other: Constitutional : Alert, oriented, in mild respiratory distress Neck : Normal inspection, Supple Cardiovascular : Good pulsation, no lower extremity edema Respiratory : Chest wall moving bilaterally, no wheezes, in mild distress, on oxygen supplement Gastrointestinal: soft, lax, Normal bowel sounds, Non tender Skin : Warm, Dry Neurological : Alert & oriented x3, No focal deficit Objective Data Active Medications Al Hydroxide/Mg Hydroxide (Magnesium Hydrox/Alum Hydrox 30 Ml Oral.Susp) 30 ml PO Q4H PRN PRN Reason: GERD Apixaban (Apixaban 5 Mg Tablet) 5 mg PO BID [facility] Last Admin: 02/10/21 09:32 Dose: 5 mg Documented by: ERMIAS Buspirone HCl (Buspirone Hcl 5 Mg Tablet) 5 mg PO TID [facility] Last Admin: 02/10/21 09:33 Dose: 5 mg Documented by: ERMIAS Collagenase (Collagenase Clostridium Hist. 30 Gm Tube) 1 appl TOPICAL BEDTIME [facility]; Protocol Last Admin: 02/09/21 21:40 Dose: 1 appl Documented by: KERRIE Dexamethasone Sodium Phosphate (Dexamethasone Sod Phosphate 4 Mg/Ml Vial) 6 mg IVPUSH DAILY [facility] Last Admin: 02/10/21 09:34 Dose: 6 mg Documented by: ERMIAS Duloxetine HCl (Duloxetine Hcl 60 Mg Capsule.) 60 mg PO DAILY [facility] Last Admin: 02/10/21 09:34 Dose: 60 mg Documented by: ERMIAS Gabapentin (Gabapentin 100 Mg Capsule) 500 mg PO TID [facility] Last Admin: 02/10/21 09:31 Dose: 500 mg Documented by: ERMIAS Lamotrigine (Lamotrigine 100 Mg Tablet) 100 mg PO BEDTIME [facility] Last Admin: 02/09/21 21:36 Dose: 100 mg Documented by: KERRIE Levothyroxine Sodium (Levothyroxine Sodium 50 Mcg Tablet) 50 mcg PO DAILY@0600 [facility] Last Admin: 02/10/21 06:22 Dose: 50 mcg Documented by: ELLEN Lisinopril (Lisinopril 2.5 Mg Tablet) 2.5 mg PO DAILY [facility]; Protocol Last Admin: 02/10/21 09:32 Dose: 2.5 mg Documented by: ERMIAS Methadone HCl (Methadone Hcl 20 Mg/2 Ml Oral.Conc) 10 mg PO DAILY PRN PRN Reason: OPIOID ADDICATION Methadone HCl (Methadone Hcl 20 Mg/2 Ml Oral.Conc) 10 mg PO BID [facility] Last Admin: 02/10/21 09:35 Dose: 10 mg Documented by: ERMIAS Mirtazapine (Mirtazapine 15 Mg Tablet) 15 mg PO BEDTIME [facility] Last Admin: 02/09/21 21:36 Dose: 15 mg Documented by: KERRIE Pharmacy Consult (Consult Rx Perform Med Rec) 1 each MISCELLANE ONCE PRN PRN Reason: Consult order Polyethylene Glycol (Polyethylene Glycol 3350 17 Gm Powd.Pack) 17 gm PO DAILY [facility] Last Admin: 02/10/21 09:32 Dose: 17 gm Documented by: ERMIAS Risperidone (Risperidone 2 Mg Tablet) 2 mg PO BID [facility] Last Admin: 02/10/21 09:34 Dose: 2 mg Documented by: ERMIAS Senna (Sennosides 8.6 Mg Tablet) 17.2 mg PO DAILY [facility] Last Admin: 02/10/21 09:34 Dose: 17.2 mg Documented by: ERMIAS Sodium Chloride (0.9 % Sodium Chloride Flush 3 Ml Syringe) 3 ml IVFLUSH QSHIFT [facility] Last Admin: 02/10/21 09:34 Dose: 3 ml Documented by: ERMIAS Tiotropium [place] (Tiotropium [place] 18 Mcg Cap.W.Dev) 2 puff INHALE RDAILY [facility] Last Admin: 02/10/21 08:01 Dose: Not Given Documented by: MIGDALIA Non-Admin Reason: Med Not Available Labs CBC & Chem 7: 02/06/21 06:42 02/10/21 06:01 Labs: Laboratory Results - last 24 hr 02/10/21 06:01 Anion Gap 12 Estim Creat Clear Calc 76.9 Estimated GFR > 60 Random Glucose 116 H Calcium 8.5 Lactate Dehydrogenase 212 C-Reactive Protein 3.52 H Assessment and Plan (1) Cellulitis of heel, right: Status: Acute (2) Acute respiratory failure with hypoxia: Status: Acute (3) Pneumonia due to 2019-nCoV: Status: Acute Assessment and Plan: ?70F with known covid, found to be unresponsive, hypoxic, and painful right heel ulcer, now with GPC in blood acute hypoxic respiratory failure and metabolic encephalopathy due to covid pneumonia Mentation improving Finished decadron day 10 Increase respiratory distress and oxygen requirement requiring high-flow Placed on high-flow, wean down as tolerated Get pulmonology evaluation recommendations infected right heel ulcer with cellulitis turned out to be coag negative, likely contaminant plan for 8 weeks of doxy (can be po) (end mar 28, 2021) s/p bedside debridement 02/01/21 [facility] dementia, 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
[2021-02-10] MEDS: Mirtazapine 15 MG TABLET PO (21:01)
[2021-02-10] MEDS: lamoTRIgine 100 MG TABLET PO (21:02)
[2021-02-10] MEDS: Collagenase Clostridium Hist. 30 GM TUBE 1 APPL TOPICAL (21:17)
[2021-02-11] VITALS (14 sets, daily range): BP systolic 100–134; BP diastolic 55–84; PULSE 62–90; RESP 16–20; TEMP 36.7–37.6; O2SAT 92–100
[2021-02-11] MEDS: Levothyroxine Sodium 50 MCG TABLET PO (05:49)
--- NOTE | 2021-02-11 10:11 | PM.CNPUL ---
History of Present Illness History of Present Illness Consult date: 02/11/21 Chief complaint: COVID Narrative: This is an in patient pulmonary consultation. The patient is a 70F from [place] was sent in after being found unresponsive. she had tested positive for covid on 01/25/21. at that time she was asymptomatic, on day of presentation she was noted to be unresponsive, EMS noted saturations in the 60s, she had been placed on bipap and improved. patient herself does have dementia and is a poor historian but denies any shortness of breath at this time. she knows where she is, but is unaware of why she is here. she was then transitioned from bipap to high flow. Now with slow worsening of her respiratory status on NRB and HF. Currently on Vanco and Eliquis and decadron. She is a poor historian. She is now more than 2 weeks from her initial covid illness. Review of Systems Review of Systems: Yes Unobtainable due to mental condition and Unobtainable due to mental status PMFSH Past Medical History Medical History (Updated 02/11/21 @ 16:28 by Flaco Bey MD) Alcoholism Falls Opiate dependence Pulmonary embolus Social History Social History Household Members: Other Housing: Longterm Do you presently have visiting nurse or other home services: No Unable to assess alcohol history related to: Unable to respond and Unknown Patient Tobacco Use Status: Former Tobacco user Tobacco use type: Cigarette service: No Current occupational status: retired Meds Allergies Allergy/AdvReac Type Severity Reaction Status Date / Time Unable to Assess Allergy Verified 01/30/21 08:57 Active Medications: Current Medications Al Hydroxide/Mg Hydroxide (Magnesium Hydrox/Alum Hydrox 30 Ml Oral.Susp) 30 ml PO Q4H PRN PRN Reason: GERD Apixaban (Apixaban 5 Mg Tablet) 5 mg PO BID [facility] Last Admin: 02/10/21 21:02 Dose: 5 mg Documented by: Buspirone HCl (Buspirone Hcl 5 Mg Tablet) 5 mg PO TID [facility] Last Admin: 02/10/21 21:01 Dose: 5 mg Documented by: Collagenase (Collagenase Clostridium Hist. 30 Gm Tube) 1 appl TOPICAL BEDTIME [facility]; Protocol Last Admin: 02/10/21 21:17 Dose: 1 appl Documented by: Dexamethasone Sodium Phosphate (Dexamethasone Sod Phosphate 4 Mg/Ml Vial) 6 mg IVPUSH DAILY [facility] Last Admin: 02/10/21 09:34 Dose: 6 mg Documented by: Duloxetine HCl (Duloxetine Hcl 60 Mg Capsule.Dr) 60 mg PO DAILY [facility] Last Admin: 02/10/21 09:34 Dose: 60 mg Documented by: Gabapentin (Gabapentin 100 Mg Capsule) 500 mg PO TID [facility] Last Admin: 02/10/21 21:01 Dose: 500 mg Documented by: Lamotrigine (Lamotrigine 100 Mg Tablet) 100 mg PO BEDTIME [facility] Last Admin: 02/10/21 21:02 Dose: 100 mg Documented by: Levothyroxine Sodium (Levothyroxine Sodium 50 Mcg Tablet) 50 mcg PO DAILY@0600 [facility] Last Admin: 02/11/21 05:49 Dose: 50 mcg Documented by: Lisinopril (Lisinopril 2.5 Mg Tablet) 2.5 mg PO DAILY [facility]; Protocol Last Admin: 02/10/21 09:32 Dose: 2.5 mg Documented by: Methadone HCl (Methadone Hcl 20 Mg/2 Ml Oral.Conc) 10 mg PO DAILY PRN PRN Reason: OPIOID ADDICATION Methadone HCl (Methadone Hcl 20 Mg/2 Ml Oral.Conc) 10 mg PO BID [facility] Last Admin: 02/10/21 21:01 Dose: 10 mg Documented by: Mirtazapine (Mirtazapine 15 Mg Tablet) 15 mg PO BEDTIME [facility] Last Admin: 02/10/21 21:01 Dose: 15 mg Documented by: Pharmacy Consult (Consult Rx Perform Med Rec) 1 each MISCELLANE ONCE PRN PRN Reason: Consult order Polyethylene Glycol (Polyethylene Glycol 3350 17 Gm Powd.Pack) 17 gm PO DAILY [facility] Last Admin: 02/10/21 09:32 Dose: 17 gm Documented by: Risperidone (Risperidone 2 Mg Tablet) 2 mg PO BID [facility] Last Admin: 02/10/21 21:02 Dose: 2 mg Documented by: Senna (Sennosides 8.6 Mg Tablet) 17.2 mg PO DAILY [facility] Last Admin: 02/10/21 09:34 Dose: 17.2 mg Documented by: Sodium Chloride (0.9 % Sodium Chloride Flush 3 Ml Syringe) [facility] Admin: 02/10/21 21:02 Dose: 3 ml Documented by: Tiotropium [place] (Tiotropium [place] 18 Mcg Cap.W.Dev) 2 puff INHALE RDAILY [facility] Last Admin: 02/11/21 08:22 Dose: 2 puff Documented by: Home Medications Medication Instructions Recorded Confirmed Last Taken Type acetaminophen 325 mg tablet 650 mg PO Q6H PRN 01/30/21 01/30/21 Unknown History albuterol sulfate 90 mcg/actuation 2 puff INHALATION Q4-6H PRN 01/30/21 01/30/21 Unknown History aerosol inhaler alprazolam 0.5 mg tablet 0.5 mg PO Q8H PRN 01/30/21 01/30/21 Unknown History aluminum-mag hydroxide-simethicone 30 ml PO Q4H PRN 01/30/21 01/30/21 Unknown History 200 mg-200 mg-20 mg/5 mL oral susp apixaban 5 mg tablet 5 mg PO BID 01/30/21 01/30/21 Unknown History buspirone 5 mg tablet 5 mg PO TID 01/30/21 01/30/21 Unknown History collagenase clostridium histo. 250 1 appl TOPICAL BEDTIME 01/30/21 01/30/21 Unknown History unit/gram topical ointment (Santyl) duloxetine 60 mg capsule,delayed 60 mg PO DAILY 01/30/21 01/30/21 Unknown History release gabapentin 100 mg capsule 500 mg PO TID 01/30/21 01/30/21 Unknown History lamotrigine 100 mg tablet 100 mg PO BEDTIME 01/30/21 01/30/21 Unknown History levothyroxine 50 mcg tablet 50 mcg PO DAILY@0600 01/30/21 01/30/21 Unknown History lisinopril 5 mg tablet 2.5 mg PO DAILY 01/30/21 01/30/21 Unknown History methadone 10 mg tablet 10 mg PO BID 01/30/21 01/30/21 01/29/21 21:00 History methadone 10 mg tablet 10 mg PO DAILY PRN 01/30/21 01/30/21 Unknown History mirtazapine 15 mg tablet (Remeron) 15 mg PO BEDTIME 01/30/21 01/30/21 Unknown History oxycodone 5 mg tablet 5 mg PO Q6H PRN 01/30/21 01/30/21 Unknown History polyethylene glycol 3350 17 gram 17 g PO DAILY 01/30/21 01/30/21 Unknown History oral powder packet (Miralax) risperidone 2 mg tablet 2 mg PO BID 01/30/21 01/30/21 Unknown History sennosides 8.6 mg tablet (senna) 17.2 mg PO DAILY 01/30/21 01/30/21 Unknown History tiotropium bromide 2.5 2 puff INHALATION DAILY 01/30/21 01/30/21 Unknown History mcg/actuation mist for inhalation (Spiriva Respimat) Physical Exam Vital Signs: Vital Signs: Last Vital Signs Temp 98.1 F 02/11/21 07:54 Pulse 71 02/11/21 07:54 Resp 16 02/11/21 08:24 BP 123/84 02/11/21 07:54 Pulse Ox 99 02/11/21 07:54 BMI result Body Mass Index 19.8 Const: General: ill appearing Eyes: Pupils: Equal, round and reactive pupils present Neck: Neck: Yes normal visual inspection, Yes full ROM and Yes no lymphadenopathy Chest: Chest palpation & inspection: normal inspection of the chest Resp: Auscultation: diminished lung sounds Cardio: Rate: regular rate Rhythm: regular rhythm Heart sounds: S1 normal heart sound present and S2 normal heart sound present GI: Palpation (GI): Soft to palpation and nontender Auscultation: normal bowel sounds Skin: General skin exam: rashes and/or lesions noted Neuro: Cranial nerves: Yes Equal, round and reactive pupils present Results Laboratory Findings CBC and BMP: 02/06/21 06:42 02/10/21 06:01 ABG, PT/INR, D-dimer: PT/INR, D-dimer PT 14.8 SEC (9.9-13.0) H 01/30/21 09:18 INR 1.3 (0.9-1.1) H 01/30/21 09:18 Abnormal lab findings: Abnormal Labs 01/30/21 01/30/21 01/30/21 09:18 09:18 09:18 WBC RBC Hgb Hct MCH MCHC RDW Plt Count MPV Neut % (Auto) Lymph % (Auto) Lymph # (Auto) ESR PT 14.8 H INR 1.3 H VBG pH VBG HCO3 Sodium 146 H Carbon Dioxide 30 H Anion Gap BUN 18 H Random Glucose Fasting Glucose Calcium 8.1 L AST 70 H Lactate Dehydrogenase 489 H Total Creatine Kinase 1192 H Troponin I High Sens C-Reactive Protein 6.78 H B-Natriuretic Peptide Total Protein 5.6 L Albumin 2.8 L Lipase < 4 L Vancomycin Trough COVID-19 (SILVIA) Positive A 01/30/21 01/30/21 01/30/21 09:18 09:19 10:22 WBC RBC Hgb 10.9 L Hct MCH 25.8 L MCHC 29.3 L RDW 19.9 H Plt Count 152 L MPV Neut % (Auto) 74.9 H Lymph % (Auto) 15.3 L Lymph # (Auto) 0.9 L ESR PT INR VBG pH 7.46 H VBG HCO3 34 H Sodium Carbon Dioxide Anion Gap BUN Random Glucose Fasting Glucose Calcium AST Lactate Dehydrogenase Total Creatine Kinase Troponin I High Sens 184.9 H* C-Reactive Protein B-Natriuretic Peptide 163 H Total Protein Albumin Lipase Vancomycin Trough COVID-19 (SILVIA) 01/31/21 01/31/21 02/01/21 06:09 06:09 06:12 WBC 3.6 L 4.1 L RBC 3.84 L 3.74 L Hgb 9.8 L 9.7 L Hct 34.2 L 33.8 L MCH 25.5 L 25.9 L MCHC 28.7 L 28.7 L RDW 19.5 H 18.9 H Plt Count 142 L MPV Neut % (Auto) Lymph % (Auto) Lymph # (Auto) ESR PT INR VBG pH VBG HCO3 Sodium 147 H Carbon Dioxide 35 H Anion Gap 10 L BUN 17 H Random Glucose Fasting Glucose 112 H Calcium 8.2 L AST Lactate Dehydrogenase 406 H Total Creatine Kinase Troponin I High Sens C-Reactive Protein 7.21 H B-Natriuretic Peptide Total Protein Albumin Lipase Vancomycin Trough COVID-19 (SILVIA) 02/01/21 02/02/21 02/02/21 06:12 06:21 06:21 WBC 4.4 L RBC 3.77 L Hgb 9.5 L Hct 33.9 L MCH 25.2 L MCHC 28.0 L RDW 18.6 H Plt Count MPV Neut % (Auto) Lymph % (Auto) Lymph # (Auto) ESR 28 H PT INR VBG pH VBG HCO3 Sodium Carbon Dioxide 35 H Anion Gap 9 L BUN 17 H Random Glucose Fasting Glucose 116 H Calcium 8.1 L AST Lactate Dehydrogenase Total Creatine Kinase Troponin I High Sens C-Reactive Protein B-Natriuretic Peptide Total Protein Albumin Lipase Vancomycin Trough COVID-19 (SILVIA) 02/02/21 02/02/21 02/04/21 06:21 09:16 05:37 WBC 4.7 L RBC 3.53 L Hgb 9.2 L Hct 31.3 L MCH 26.1 L MCHC 29.4 L RDW 18.5 H Plt Count MPV Neut % (Auto) Lymph % (Auto) Lymph # (Auto) ESR PT INR VBG pH VBG HCO3 Sodium Carbon Dioxide 34 H Anion Gap 10 L BUN 17 H Random Glucose Fasting Glucose Calcium 8.1 L AST Lactate Dehydrogenase Total Creatine Kinase Troponin I High Sens C-Reactive Protein B-Natriuretic Peptide Total Protein Albumin Lipase Vancomycin Trough 5.1 L COVID-19 (SILVIA) 02/04/21 02/06/21 02/06/21 05:37 06:42 06:42 WBC RBC 3.74 L Hgb 9.5 L Hct 32.7 L MCH 25.4 L MCHC 29.1 L RDW 18.1 H Plt Count MPV 9.2 L Neut % (Auto) Lymph % (Auto) Lymph # (Auto) ESR PT INR VBG pH VBG HCO3 Sodium Carbon Dioxide 35 H 33 H Anion Gap 8 L 10 L BUN Random Glucose Fasting Glucose 112 H Calcium 8.2 L 8.3 L AST Lactate Dehydrogenase Total Creatine Kinase Troponin I High Sens C-Reactive Protein 1.98 H 0.67 H B-Natriuretic Peptide Total Protein 4.8 L Albumin 2.4 L Lipase Vancomycin Trough COVID-19 (SILVIA) 02/07/21 02/08/21 02/09/21 05:44 06:19 09:09 WBC RBC Hgb Hct MCH MCHC RDW Plt Count MPV Neut % (Auto) Lymph % (Auto) Lymph # (Auto) ESR PT INR VBG pH VBG HCO3 Sodium Carbon Dioxide 34 H 35 H 39 H Anion Gap 10 L 10 L 8 L BUN Random Glucose Fasting Glucose Calcium AST Lactate Dehydrogenase Total Creatine Kinase Troponin I High Sens C-Reactive Protein 0.54 H B-Natriuretic Peptide Total Protein 5.2 L Albumin 2.6 L Lipase Vancomycin Trough COVID-19 (SILVIA) 02/10/21 06:01 WBC RBC Hgb Hct MCH MCHC RDW Plt Count MPV Neut % (Auto) Lymph % (Auto) Lymph # (Auto) ESR PT INR VBG pH VBG HCO3 Sodium Carbon Dioxide 33 H Anion Gap BUN 17 H Random Glucose 116 H Fasting Glucose Calcium AST Lactate Dehydrogenase Total Creatine Kinase Troponin I High Sens C-Reactive Protein 3.52 H B-Natriuretic Peptide Total Protein Albumin Lipase Vancomycin Trough COVID-19 (SILVIA) Microbiology: Microbiology 02/01/21 06:12 Blood - Venous Blood Culture - Final No growth after 5 days. 02/01/21 06:12 Blood - Venous Blood Culture - Final No growth after 5 days. 01/30/21 09:35 Blood - Venous Blood Culture - Final Staphylococcus hominis ssp may Coag negative Staphylococcus 01/30/21 09:18 Blood - Venous Blood Culture - Final Staphylococcus hominis ssp may Assessment and Plan (1) Acute respiratory failure with hypoxia: Status: Acute (2) Pneumonia due to 2019-nCoV: Status: Acute (3) Cellulitis of heel, right: Status: Acute (4) Pulmonary embolus: Status: Acute NRB/HF elevated PCO2 with normal PH, will check ABG in the AM. If acidodic will benefit from BIPAP increase Solumedrol Lasix IV x 1 She is now more than 2 weeks from her initial symptoms. No real benefit from Charles or IL6 inhibitors repeat CXR in the AM Procedures Date of Service Date of Service: 02/11/21
[2021-02-11] MEDS: Sennosides 8.6 MG TABLET 17.2 MG PO (10:27)
[2021-02-11] MEDS: dexAMETHasone sod phosphate 4 MG/ML VIAL 6 MG IVPUSH (10:27)
[2021-02-11] MEDS: 0.9 % Sodium Chloride Flush 3 ML SYRINGE IVFLUSH ×3 (10:27→21:38)
[2021-02-11] MEDS: Gabapentin 100 MG CAPSULE 500 MG PO ×3 (10:28→21:38)
[2021-02-11] MEDS: Apixaban 5 MG TABLET PO ×2 (10:28→21:37)
[2021-02-11] MEDS: polyethylene glycoL 3350 17 GM POWD.PACK PO (10:28)
[2021-02-11] MEDS: lisinopriL 2.5 MG TABLET PO (10:29)
[2021-02-11] MEDS: DULoxetine HCl 60 MG CAPSULE.DR PO (10:29)
[2021-02-11] MEDS: busPIRone HCl 5 MG TABLET PO ×3 (10:29→21:37)
[2021-02-11] MEDS: risperiDONE 2 MG TABLET PO ×2 (10:29→21:37)
[2021-02-11] MEDS: methADONE HCl 20 MG/2 ML ORAL.CONC 10 MG PO ×2 (10:29→21:38)
[2021-02-11 11:25] LABS: Venous Blood Gas Refer to POC result
[2021-02-11 11:25] LABS: VBG Base Excess 16.1 mmol/L; VBG HCO3 44 mmol/L (22-26); VBG pCO2 68 mmHg; VBG pH 7.41 (7.32-7.43); VBG pO2 66 mmHg
--- NOTE | 2021-02-11 12:38 | P.PNIM_ITS ---
Subjective Subjective Date of Service: 02/11/21 Interval History: The patient was seen and evaluated this morning Laying in bed, increased oxygen requirement Less interactive and more confused today on high-flow and oxygen mask Eating ok, Tolerating diet, moving her bowels No reported other overnight events. Systemic review: No fever, chills or weakness No chest pain, palpitation Increase shortness of breath with minimal exertion No abdominal pain, nausea or vomiting No urinary symptoms Right leg wound Physical Exam Vital Signs: Vital Signs: Last Vital Signs Temp 98.5 F 02/11/21 11:30 Pulse 84 02/11/21 11:30 Resp 18 02/11/21 12:02 BP 129/81 02/11/21 11:30 Pulse Ox 97 02/11/21 11:30 BMI result Body Mass Index 19.8 Const: Other: Constitutional : Alert, less interactive, in moderate respiratory distress Neck : Normal inspection, Supple Cardiovascular : Good pulsation, no lower extremity edema Respiratory : Chest wall moving bilaterally, no wheezes, in moderate distress, on high-flow oxygen Gastrointestinal: soft, lax, Normal bowel sounds, Non tender Skin : Warm, Dry Neurological : Alert & oriented to self, No focal deficit Objective Data Active Medications Al Hydroxide/Mg Hydroxide (Magnesium Hydrox/Alum Hydrox 30 Ml Oral.Susp) 30 ml PO Q4H PRN PRN Reason: GERD Apixaban (Apixaban 5 Mg Tablet) 5 mg PO BID [facility] Last Admin: 02/11/21 10:28 Dose: 5 mg Documented by: SARAH Buspirone HCl (Buspirone Hcl 5 Mg Tablet) 5 mg PO TID [facility] Last Admin: 02/11/21 10:29 Dose: 5 mg Documented by: SARAH Collagenase (Collagenase Clostridium Hist. 30 Gm Tube) 1 appl TOPICAL BEDTIME [facility]; Protocol Last Admin: 02/10/21 21:17 Dose: 1 appl Documented by: SIHLOH Dexamethasone Sodium Phosphate (Dexamethasone Sod Phosphate 4 Mg/Ml Vial) 6 mg IVPUSH DAILY [facility] Last Admin: 02/11/21 10:27 Dose: 6 mg Documented by: SARAH Duloxetine HCl (Duloxetine Hcl 60 Mg Capsule.) 60 mg PO DAILY [facility] Last Admin: 02/11/21 10:29 Dose: 60 mg Documented by: SARAH Gabapentin (Gabapentin 100 Mg Capsule) 500 mg PO TID [facility] Last Admin: 02/11/21 10:28 Dose: 500 mg Documented by: SARAH Lamotrigine (Lamotrigine 100 Mg Tablet) 100 mg PO BEDTIME [facility] Last Admin: 02/10/21 21:02 Dose: 100 mg Documented by: SHILOH Levothyroxine Sodium (Levothyroxine Sodium 50 Mcg Tablet) 50 mcg PO DAILY@0600 [facility] Last Admin: 02/11/21 05:49 Dose: 50 mcg Documented by: SHILOH Lisinopril (Lisinopril 2.5 Mg Tablet) 2.5 mg PO DAILY [facility]; Protocol Last Admin: 02/11/21 10:29 Dose: 2.5 mg Documented by: SARAH Methadone HCl (Methadone Hcl 20 Mg/2 Ml Oral.Conc) 10 mg PO DAILY PRN PRN Reason: OPIOID ADDICATION Methadone HCl (Methadone Hcl 20 Mg/2 Ml Oral.Conc) 10 mg PO BID [facility] Last Admin: 02/11/21 10:29 Dose: 10 mg Documented by: SARAH Mirtazapine (Mirtazapine 15 Mg Tablet) 15 mg PO BEDTIME [facility] Last Admin: 02/10/21 21:01 Dose: 15 mg Documented by: SHILOH Pharmacy Consult (Consult Rx Perform Med Rec) 1 each MISCELLANE ONCE PRN PRN Reason: Consult order Polyethylene Glycol (Polyethylene Glycol 3350 17 Gm Powd.Pack) 17 gm PO DAILY [facility] Last Admin: 02/11/21 10:28 Dose: 17 gm Documented by: SARAH Risperidone (Risperidone 2 Mg Tablet) 2 mg PO BID [facility] Last Admin: 02/11/21 10:29 Dose: 2 mg Documented by: SARAH Senna (Sennosides 8.6 Mg Tablet) 17.2 mg PO DAILY [facility] Last Admin: 02/11/21 10:27 Dose: 17.2 mg Documented by: SARAH Sodium Chloride (0.9 % Sodium Chloride Flush 3 Ml Syringe) 3 ml IVFLUSH QSHIFT [facility] Last Admin: 02/11/21 10:27 Dose: 3 ml Documented by: SARAH Tiotropium [place] (Tiotropium [place] 18 Mcg Cap.W.Dev) 2 puff INHALE RDAILY [facility] Last Admin: 02/11/21 08:22 Dose: 2 puff Documented by: ANGEL Labs CBC & Chem 7: 02/06/21 06:42 02/10/21 06:01 Labs: Laboratory Results - last 24 hr 02/11/21 11:18 VBG pH 7.41 VBG pCO2 68 VBG pO2 66 VBG HCO3 44 H VBG O2 Saturation 87.0 VBG Base Excess 16.1 Assessment and Plan (1) Cellulitis of heel, right: Status: Acute (2) Acute respiratory failure with hypoxia: Status: Acute (3) Pneumonia due to 2019-nCoV: Status: Acute Assessment and Plan: ?70F with known covid, found to be unresponsive, hypoxic, and painful right heel ulcer, now with GPC in blood # acute hypoxic respiratory failure # metabolic encephalopathy # due to covid pneumonia Increase respiratory distress and oxygen requirement requiring high-flow Mentation worsening over the last day Finished decadron day 10 Start methylprednisone Q 8 Placed on high-flow, wean down as tolerated Pulmonary consult placed infected right heel ulcer with cellulitis turned out to be coag negative, likely contaminant plan for 8 weeks of doxy (can be po) (end mar 28, 2021) s/p bedside debridement 02/01/21 [facility] dementia, 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
--- NOTE | 2021-02-11 13:13 | MHC.CM.PN ---
Per ROUNDS discussion, Patient is not yet medically cleared for dc (IV Solu Medrol, High Flow O2). Returning to LTC at [facility].. is the goal and CM will follow.
--- NOTE | 2021-02-11 13:36 | MHC.CLN ---
F/U PT WITH INCREASED NUTRITION RISK R/T PRESSURE INJURIES PO INTAKE 75-100% DIET RX: PUREED-APPROPRIATE PT RECEIVING ENSURE BID PROVIDES 700KCALS, 26G PROTEIN MONITOR PO INTAKE CLOSELY
[2021-02-11] MEDS: methylPREDNISolone Sod Succ 40 MG/ML VIAL 60 MG IVPUSH ×3 (14:46→21:37)
[2021-02-11 17:01] LABS: ABG Base Excess 17.3 mmol/L; ABG HCO3 43 mmol/L (22-26); ABG pCO2 58 mmHg (32-45); ABG pCO2 TC 59 mmHg (32-45); ABG pH 7.48 (7.35-7.45); ABG pH TC 7.47 (7.35-7.45); ABG pO2 165 mmHg (83-108); ABG pO2 TC 167 (83-108)
[2021-02-11] MEDS: Furosemide 20 MG/2 ML VIAL IVPUSH (17:50)
[2021-02-11 20:21] LABS: ABG Refer to POC result
[2021-02-11] MEDS: lamoTRIgine 100 MG TABLET PO (21:37)
[2021-02-11] MEDS: Mirtazapine 15 MG TABLET PO (21:37)
[2021-02-11] MEDS: Collagenase Clostridium Hist. 30 GM TUBE 1 APPL TOPICAL (21:38)
[2021-02-12] VITALS (11 sets, daily range): BP systolic 99–146; BP diastolic 60–86; PULSE 60–104; RESP 18–24; TEMP 36.6–37.7; O2SAT 91–106
[2021-02-12] MEDS: methylPREDNISolone Sod Succ 40 MG/ML VIAL 60 MG IVPUSH ×4 (05:35→21:27)
[2021-02-12] MEDS: Levothyroxine Sodium 50 MCG TABLET PO (05:35)
[2021-02-12 07:05] LABS: C Reactive Protein 3.07 mg/dL (< or = 0.50)
[2021-02-12 07:14] LABS: Lactate Dehydrogenase 160 U/L (122-220)
--- NOTE | 2021-02-12 07:33 | PC.NURSE ---
Critical CO2 level of [address] Garner via [place] [facility]
[2021-02-12 07:45] LABS: Anion Gap 9 (12-20); Blood Urea Nitrogen 18 mg/dL (9-16); Calcium 8.7 mg/dL (8.4-10.2); Carbon Dioxide 40 mmol/L (22-29); Chloride 96 mmol/L (96-108); Creatinine Clr Calc Pharmacy 82.5; Estimated Glomerular Filt Rate > 60; Glucose Random 113 mg/dL (60-115); Potassium 4.7 mmol/L (3.3-5.1); Sodium 140 mmol/L (135-145)
[2021-02-12 08:41] LABS: ABG Refer to POC result
[2021-02-12 08:42] LABS: ABG Base Excess 18.7 mmol/L; ABG HCO3 45 mmol/L (22-26); ABG pCO2 59 mmHg (32-45); ABG pH 7.48 (7.35-7.45); ABG pO2 75 mmHg (83-108)
--- NOTE | 2021-02-12 09:32 | P.PNPL_ITS ---
Subjective Subjective Date of Service: 02/12/21 Interval history: The patient was seen on exam. Seems to be more awake requesting more food. The patient was able to decrease the high-flow. The Objective Data Labs CBC & Chem 7: 02/06/21 06:42 02/12/21 06:40 Labs: Laboratory Results - last 24 hr 02/11/21 02/11/21 02/12/21 11:18 16:55 06:40 O2 Saturation 97.0 ABG pH at Pt Temp 7.48 H ABG pH (Temp Correct) 7.47 H ABG pCO2 at Pt Temp 58 H ABG pCO2 (Temp Corrct 59 H ABG pO2 at Pt Temp 165 H ABG pO2 (Temp Correct 167 H ABG HCO3 43 H ABG Base Excess (Actual) 17.3 VBG pH 7.41 VBG pCO2 68 VBG pO2 66 VBG HCO3 44 H VBG O2 Saturation 87.0 VBG Base Excess 16.1 Sodium 140 Potassium 4.7 Chloride 96 Carbon Dioxide 40 H* D Anion Gap 9 L BUN 18 H Creatinine 0.55 Estim Creat Clear Calc 82.5 Estimated GFR > 60 Random Glucose 113 Calcium 8.7 Lactate Dehydrogenase C-Reactive Protein 02/12/21 02/12/21 06:40 08:35 O2 Saturation 93.0 ABG pH at Pt Temp 7.48 H ABG pH (Temp Correct) ABG pCO2 at Pt Temp 59 H ABG pCO2 (Temp Corrct ABG pO2 at Pt Temp 75 L ABG pO2 (Temp Correct ABG HCO3 45 H ABG Base Excess (Actual) 18.7 VBG pH VBG pCO2 VBG pO2 VBG HCO3 VBG O2 Saturation VBG Base Excess Sodium Potassium Chloride Carbon Dioxide Anion Gap BUN Creatinine Estim Creat Clear Calc Estimated GFR Random Glucose Calcium Lactate Dehydrogenase 160 C-Reactive Protein 3.07 H Microbiology Microbiology Results: Microbiology 02/01/21 06:12 Blood - Venous Blood Culture - Final No growth after 5 days. 02/01/21 06:12 Blood - Venous Blood Culture - Final No growth after 5 days. 01/30/21 09:35 Blood - Venous Blood Culture - Final Staphylococcus hominis ssp may Coag negative Staphylococcus 01/30/21 09:18 Blood - Venous Blood Culture - Final Staphylococcus hominis ssp may Review of Systems Constitutional: Denies night sweats Denies change in voice, Denies lip swelling, Denies mouth pain, Denies nasal congestion, Denies nasal discharge and Denies tongue swelling Cardiovascular: Denies chest pain Respiratory: Reports cough Gastrointestinal: Denies abdominal pain and Reports other (hungry) Musculoskeletal: Denies no additional musculoskeletal complaints Denies Neuro-related abnormal movements Psychiatric: Denies no additional psychiatric complaints Hematologic/Lymphatic: Denies easy bleeding and Denies lymphadenopathy Allergic/Immunologic: Denies lip swelling and Denies tongue swelling Physical Exam Vital Signs: Vital Signs: Last Vital Signs Temp 99.2 F 02/12/21 08:00 Pulse 80 02/12/21 08:00 Resp 20 02/12/21 08:00 BP 146/86 H 02/12/21 08:00 Pulse Ox 96 02/12/21 08:00 BMI result Body Mass Index 19.8 Const: General: alert Neck: Neck: Yes normal visual inspection, Yes full ROM and Yes no lymphadenop athy Chest: Chest palpation & inspection: normal inspection of the chest Resp: Auscultation: diminished lung sounds Cardio: Rate: regular rate Rhythm: regular rhythm Heart sounds: S1 n ormal heart sound present and S2 normal heart sound present GI: Palpation (GI): Soft to palpation and nontender Auscultation: normal bowel sounds Procedures Date of Service Date of Service: 02/12/21 Assessment and Plan Assessment and plan (1) Acute respiratory failure with hypoxia: Status: Acute (2) Pneumonia due to 2019-nCoV: Status: Acute (3) Respiratory failure: Status: Acute Assessment and Plan: PLease reassess diet, asking for more food. Likely from the higher steroids Diuresis as needed Continue solumedrol Weaning HF Time Spent With Patient Time: Total time spent is greater than 50% in coordination of care (as docu mented) at patient's floor/unit and/or counseling patient: Time with patient: 15 - 24 minutes Progress Note: Quality Stroke Does the patient have a stroke diagnosis?: No
[2021-02-12] MEDS: Gabapentin 100 MG CAPSULE 500 MG PO ×3 (10:22→21:26)
[2021-02-12] MEDS: 0.9 % Sodium Chloride Flush 3 ML SYRINGE IVFLUSH ×3 (10:22→21:27)
[2021-02-12] MEDS: polyethylene glycoL 3350 17 GM POWD.PACK PO (10:23)
[2021-02-12] MEDS: Apixaban 5 MG TABLET PO ×2 (10:23→21:26)
[2021-02-12] MEDS: Sennosides 8.6 MG TABLET 17.2 MG PO (10:23)
[2021-02-12] MEDS: lisinopriL 2.5 MG TABLET PO (10:23)
[2021-02-12] MEDS: methADONE HCl 20 MG/2 ML ORAL.CONC 10 MG PO ×2 (10:24→21:27)
[2021-02-12] MEDS: risperiDONE 2 MG TABLET PO ×2 (10:24→21:27)
[2021-02-12] MEDS: busPIRone HCl 5 MG TABLET PO ×3 (10:24→21:27)
[2021-02-12] MEDS: DULoxetine HCl 60 MG CAPSULE.DR PO (10:27)
--- NOTE | 2021-02-12 12:38 | P.PNIM_ITS ---
Subjective Subjective Date of Service: 02/12/21 Interval History: The patient was seen and evaluated this morning Laying in bed, looks comfortable and keep asking for food more confused today on high-flow Tolerating diet, moving her bowels No reported other overnight events. Systemic review: No fever, chills or weakness No chest pain, palpitation Increase shortness of breath with minimal exertion No abdominal pain, nausea or vomiting No urinary symptoms Right leg wound Physical Exam Vital Signs: Vital Signs: Last Vital Signs Temp 100 F 02/12/21 11:26 Pulse 100 02/12/21 11:26 Resp 18 02/12/21 11:49 BP 99/64 02/12/21 11:26 Pulse Ox 91 L 02/12/21 11:26 BMI result Body Mass Index 19.8 Const: Other: Constitutional : Alert, less interactive, in moderate respiratory distress Neck : Normal inspection, Supple Cardiovascular : Good pulsation, no lower extremity edema Respiratory : Chest wall moving bilaterally, no wheezes, in moderate distress, on high-flow oxygen Gastrointestinal: soft, lax, Normal bowel sounds, Non tender Skin : Warm, Dry Neurological : Alert & oriented to self, No focal deficit Objective Data Active Medications Al Hydroxide/Mg Hydroxide (Magnesium Hydrox/Alum Hydrox 30 Ml Oral.Susp) 30 ml PO Q4H PRN PRN Reason: GERD Apixaban (Apixaban 5 Mg Tablet) 5 mg PO BID [facility] Last Admin: 02/12/21 10:23 Dose: 5 mg Documented by: SARAH Buspirone HCl (Buspirone Hcl 5 Mg Tablet) 5 mg PO TID [facility] Last Admin: 02/12/21 10:24 Dose: 5 mg Documented by: SARAH Collagenase (Collagenase Clostridium Hist. 30 Gm Tube) 1 appl TOPICAL BEDTIME [facility]; Protocol Last Admin: 02/11/21 21:38 Dose: 1 appl Documented by: ANTOIC Duloxetine HCl (Duloxetine Hcl 60 Mg Capsule.) 60 mg PO DAILY [facility] Last Admin: 02/12/21 10:27 Dose: 60 mg Documented by: SARAH Gabapentin (Gabapentin 100 Mg Capsule) 500 mg PO TID [facility] Last Admin: 02/12/21 10:22 Dose: 500 mg Documented by: SARAH Lamotrigine (Lamotrigine 100 Mg Tablet) 100 mg PO BEDTIME [facility] Last Admin: 02/11/21 21:37 Dose: 100 mg Documented by: NIGHAT Levothyroxine Sodium (Levothyroxine Sodium 50 Mcg Tablet) 50 mcg PO DAILY@0600 [facility] Last Admin: 02/12/21 05:35 Dose: 50 mcg Documented by: NIGHAT Lisinopril (Lisinopril 2.5 Mg Tablet) 2.5 mg PO DAILY [facility]; Protocol Last Admin: 02/12/21 10:23 Dose: 2.5 mg Documented by: SARAH Methadone HCl (Methadone Hcl 20 Mg/2 Ml Oral.Conc) 10 mg PO DAILY PRN PRN Reason: OPIOID ADDICATION Methadone HCl (Methadone Hcl 20 Mg/2 Ml Oral.Conc) 10 mg PO BID [facility] Last Admin: 02/12/21 10:24 Dose: 10 mg Documented by: SARAH Methylprednisolone Sodium Succinate (Methylprednisolone Sod Succ 40 Mg/Ml Vial) 60 mg IVPUSH Q6H [facility] Last Admin: 02/12/21 10:25 Dose: 60 mg Documented by: SARAH Mirtazapine (Mirtazapine 15 Mg Tablet) 15 mg PO BEDTIME [facility] Last Admin: 02/11/21 21:37 Dose: 15 mg Documented by: NIGHAT Pharmacy Consult (Consult Rx Perform Med Rec) 1 each MISCELLANE ONCE PRN PRN Reason: Consult order Polyethylene Glycol (Polyethylene Glycol 3350 17 Gm Powd.Pack) 17 gm PO DAILY [facility] Last Admin: 02/12/21 10:23 Dose: 17 gm Documented by: SARAH Risperidone (Risperidone 2 Mg Tablet) 2 mg PO BID [facility] Last Admin: 02/12/21 10:24 Dose: 2 mg Documented by: SARAH Senna (Sennosides 8.6 Mg Tablet) 17.2 mg PO DAILY [facility] Last Admin: 02/12/21 10:23 Dose: 17.2 mg Documented by: SARAH Sodium Chloride (0.9 % Sodium Chloride Flush 3 Ml Syringe) 3 ml IVFLUSH QSHIFT [facility] Last Admin: 02/12/21 10:22 Dose: 3 ml Documented by: SARAH Tiotropium [place] (Tiotropium [place] 18 Mcg Cap.W.Dev) 2 puff INHALE RDAILY [facility] Last Admin: 02/12/21 07:51 Dose: Not Given Documented by: MIGDALIA Non-Admin Reason: Med Not Available Labs CBC & Chem 7: 02/06/21 06:42 02/12/21 06:40 Labs: Laboratory Results - last 24 hr 02/11/21 02/12/21 02/12/21 16:55 06:40 06:40 O2 Saturation 97.0 ABG pH at Pt Temp 7.48 H ABG pH (Temp Correct) 7.47 H ABG pCO2 at Pt Temp 58 H ABG pCO2 (Temp Corrct 59 H ABG pO2 at Pt Temp 165 H ABG pO2 (Temp Correct 167 H ABG HCO3 43 H ABG Base Excess (Actual) 17.3 Anion Gap 9 L Estim Creat Clear Calc 82.5 Estimated GFR > 60 Random Glucose 113 Calcium 8.7 Lactate Dehydrogenase 160 C-Reactive Protein 3.07 H 02/12/21 08:35 O2 Saturation 93.0 ABG pH at Pt Temp 7.48 H ABG pH (Temp Correct) ABG pCO2 at Pt Temp 59 H ABG pCO2 (Temp Corrct ABG pO2 at Pt Temp 75 L ABG pO2 (Temp Correct ABG HCO3 45 H ABG Base Excess (Actual) 18.7 Anion Gap Estim Creat Clear Calc Estimated GFR Random Glucose Calcium Lactate Dehydrogenase C-Reactive Protein Assessment and Plan (1) Acute respiratory failure with hypoxia: Status: Acute (2) Cellulitis of heel, right: Status: Acute Assessment and Plan: ?70F with known covid, found to be unresponsive, hypoxic, and painful right heel ulcer, now with GPC in blood # acute hypoxic respiratory failure # metabolic encephalopathy # due to covid pneumonia Increase respiratory distress and oxygen requirement requiring high-flow Mentation worsening over the last day Finished decadron day 10 Continue methylprednisone Q 8 day 2 Placed on high-flow, wean down as tolerated Pulmonary consult appreciated infected right heel ulcer with cellulitis turned out to be coag negative, likely contaminant plan for 8 weeks of doxy (can be po) (end mar 28, 2021) s/p bedside debridement 02/01/21 [facility] dementia, 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
[2021-02-12] MEDS: acetaZOLAMIDE sodium 500 MG VIAL IVPUSH (14:39)
[2021-02-12] MEDS: lamoTRIgine 100 MG TABLET PO (21:26)
[2021-02-12] MEDS: Collagenase Clostridium Hist. 30 GM TUBE 1 APPL TOPICAL (21:27)
[2021-02-12] MEDS: Mirtazapine 15 MG TABLET PO (21:27)
[2021-02-13] VITALS (14 sets, daily range): BP systolic 96–126; BP diastolic 55–86; PULSE 77–100; RESP 18–24; TEMP 36.3–36.8; O2SAT 89–100
[2021-02-13] MEDS: methylPREDNISolone Sod Succ 40 MG/ML VIAL 60 MG IVPUSH ×4 (06:38→23:56)
[2021-02-13] MEDS: Levothyroxine Sodium 50 MCG TABLET PO (06:39)
[2021-02-13 06:55] LABS: Anion Gap 13 (12-20); Blood Urea Nitrogen 22 mg/dL (9-16); Calcium 9.1 mg/dL (8.4-10.2); Carbon Dioxide 32 mmol/L (22-29); Chloride 101 mmol/L (96-108); Creatinine Clr Calc Pharmacy 69.9; Estimated Glomerular Filt Rate > 60; Glucose Random 125 mg/dL (60-115); Potassium 4.5 mmol/L (3.3-5.1); Sodium 141 mmol/L (135-145)
[2021-02-13] MEDS: risperiDONE 2 MG TABLET PO ×2 (09:42→21:06)
[2021-02-13] MEDS: Gabapentin 100 MG CAPSULE 500 MG PO ×3 (09:42→21:05)
[2021-02-13] MEDS: Apixaban 5 MG TABLET PO ×2 (09:42→21:05)
[2021-02-13] MEDS: Sennosides 8.6 MG TABLET 17.2 MG PO (09:42)
[2021-02-13] MEDS: busPIRone HCl 5 MG TABLET PO ×3 (09:43→21:05)
[2021-02-13] MEDS: DULoxetine HCl 60 MG CAPSULE.DR PO (09:43)
[2021-02-13] MEDS: methADONE HCl 20 MG/2 ML ORAL.CONC 10 MG PO ×2 (09:43→21:06)
[2021-02-13] MEDS: lisinopriL 2.5 MG TABLET PO (09:43)
[2021-02-13] MEDS: 0.9 % Sodium Chloride Flush 3 ML SYRINGE IVFLUSH ×3 (09:44→23:56)
[2021-02-13] MEDS: polyethylene glycoL 3350 17 GM POWD.PACK PO (09:51)
--- NOTE | 2021-02-13 11:42 | MHC.CM.PN ---
Per, ROUNDS discussion, Patient is still on high flow O2 and not yet medically cleared for dc. Returning to LTC at [facility] is the goal and CM will continue to follow.
--- NOTE | 2021-02-13 13:08 | MHC.CLN ---
F/U DIET=2 GRAM SODIUM, PUREE. SUPPLEMENT ENSURE BID TO PROMOTE WOUND HEALING. PATIENT WITH MULTIPLE PRESSURE INJURIES. INTAKE APPEARS USUALLY GOOD. CONTINUE CURRENT DIET AND SUPPLEMENT.
--- NOTE | 2021-02-13 15:38 | HO.PM.IMPN ---
Subjective Subjective Date of Service: 02/13/21 Interval History: cc: ams, hypoxia interval history: hungry Cardiovascular Cardiovascular: Reports no additional cardiovascular complaints Respiratory Respiratory: Reports no additional respiratory complaints Physical Exam Vital Signs: Vital Signs: Last Vital Signs Temp 97.6 F 02/13/21 15:09 Pulse 92 02/13/21 15:09 Resp 18 02/13/21 15:09 BP 96/55 L 02/13/21 15:09 Pulse Ox 95 02/13/21 15:09 BMI result Body Mass Index 19.8 General: AO X 3, no acute distress, frail Resp: diminished bilateral, no accessory muscles used CVS: S1,S2,RRR GI: soft, non tender, non distended Neuro: motor grossly intact, alert Psych: flat affect, impaired insight Objective Data Active Medications Al Hydroxide/Mg Hydroxide (Magnesium Hydrox/Alum Hydrox 30 Ml Oral.Susp) 30 ml PO Q4H PRN PRN Reason: GERD Apixaban (Apixaban 5 Mg Tablet) 5 mg PO BID [facility] Last Admin: 02/13/21 09:42 Dose: 5 mg Documented by: MASSIEL Buspirone HCl (Buspirone Hcl 5 Mg Tablet) 5 mg PO TID [facility] Last Admin: 02/13/21 15:09 Dose: 5 mg Documented by: MASSIEL Collagenase (Collagenase Clostridium Hist. 30 Gm Tube) 1 appl TOPICAL BEDTIME [facility]; Protocol Last Admin: 02/12/21 21:27 Dose: 1 appl Documented by: NIGHAT Duloxetine HCl (Duloxetine Hcl 60 Mg Capsule.) 60 mg PO DAILY [facility] Last Admin: 02/13/21 09:43 Dose: 60 mg Documented by: MASSIEL Gabapentin (Gabapentin 100 Mg Capsule) 500 mg PO TID [facility] Last Admin: 02/13/21 15:08 Dose: 500 mg Documented by: MASSIEL Lamotrigine (Lamotrigine 100 Mg Tablet) 100 mg PO BEDTIME [facility] Last Admin: 02/12/21 21:26 Dose: 100 mg Documented by: NIGHAT Levothyroxine Sodium (Levothyroxine Sodium 50 Mcg Tablet) 50 mcg PO DAILY@0600 [facility] Last Admin: 02/13/21 06:39 Dose: 50 mcg Documented by: ANTJACK Lisinopril (Lisinopril 2.5 Mg Tablet) 2.5 mg PO DAILY [facility]; Protocol Last Admin: 02/13/21 09:43 Dose: 2.5 mg Documented by: MASSIEL Methadone HCl (Methadone Hcl 20 Mg/2 Ml Oral.Conc) 10 mg PO DAILY PRN PRN Reason: OPIOID ADDICATION Methadone HCl (Methadone Hcl 20 Mg/2 Ml Oral.Conc) 10 mg PO BID [facility] Last Admin: 02/13/21 09:43 Dose: 10 mg Documented by: MASSIEL Methylprednisolone Sodium Succinate (Methylprednisolone Sod Succ 40 Mg/Ml Vial) 60 mg IVPUSH Q6H [facility] Last Admin: 02/13/21 15:09 Dose: 60 mg Documented by: MASSIEL Mirtazapine (Mirtazapine 15 Mg Tablet) 15 mg PO BEDTIME [facility] Last Admin: 02/12/21 21:27 Dose: 15 mg Documented by: ANTOIC Pharmacy Consult (Consult Rx Perform Med Rec) 1 each MISCELLANE ONCE PRN PRN Reason: Consult order Polyethylene Glycol (Polyethylene Glycol 3350 17 Gm Powd.Pack) 17 gm PO DAILY [facility] Last Admin: 02/13/21 09:51 Dose: 17 gm Documented by: MASSIEL Risperidone (Risperidone 2 Mg Tablet) 2 mg PO BID [facility] Last Admin: 02/13/21 09:42 Dose: 2 mg Documented by: MASSIEL Senna (Sennosides 8.6 Mg Tablet) 17.2 mg PO DAILY [facility] Last Admin: 02/13/21 09:42 Dose: 17.2 mg Documented by: MASSIEL Sodium Chloride (0.9 % Sodium Chloride Flush 3 Ml Syringe) 3 ml IVFLUSH QSHIFT [facility] Last Admin: 02/13/21 15:09 Dose: 3 ml Documented by: MASSIEL Tiotropium [place] (Tiotropium [place] 18 Mcg Cap.W.Dev) 2 puff INHALE RDAILY [facility] Last Admin: 02/13/21 08:07 Dose: Not Given Documented by: MIGDALIA Non-Admin Reason: med unavail Labs CBC & Chem 7: 02/06/21 06:42 02/13/21 06:02 Labs: Laboratory Results - last 24 hr 02/13/21 06:02 Anion Gap 13 Estim Creat Clear Calc 69.9 Estimated GFR > 60 Random Glucose 125 H Calcium 9.1 Assessment and Plan (1) Acute respiratory failure with hypoxia: Status: Acute (2) Cellulitis of heel, right: Status: Acute Assessment and Plan: ?70F with known covid, found to be unresponsive, hypoxic, and painful right heel ulcer acute hypoxic respiratory failure complicated by metabolic encephalopathy due to covid pneumonia Continue methylprednisone Q 8 day 2 wean o2 as tolerated for saturation of 90-93% Pulmonary consult appreciated infected right heel ulcer with cellulitis turned out to be coag negative, likely contaminant plan for 8 weeks of doxy (can be po) (end mar 28, 2021) s/p bedside debridement 02/01/21 continue local care dementia, 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
[2021-02-13] MEDS: lamoTRIgine 100 MG TABLET PO (21:05)
[2021-02-13] MEDS: Mirtazapine 15 MG TABLET PO (21:06)
[2021-02-13] MEDS: Collagenase Clostridium Hist. 30 GM TUBE 1 APPL TOPICAL (21:18)
[2021-02-14] VITALS (12 sets, daily range): BP systolic 86–133; BP diastolic 52–78; PULSE 67–96; RESP 16–18; TEMP 36.4–37.1; O2SAT 94–100
[2021-02-14] MEDS: Levothyroxine Sodium 50 MCG TABLET PO (05:35)
[2021-02-14] MEDS: methylPREDNISolone Sod Succ 40 MG/ML VIAL 60 MG IVPUSH ×2 (05:35→10:06)
[2021-02-14 06:28] LABS: Hematocrit 35.3 % (37.0-47.0); Hemoglobin 10.3 g/dl (12.0-16.0); Mean Corpuscular HGB Conc 29.2 g/dl (31.0-35.0); Mean Corpuscular Hemoglobin 25.7 pg (27.0-33.0); Mean Platelet Volume 9.6 fL (9.4-12.3); Platelet Count 292 X10*3/uL (160-400); Red Blood Count 4.01 X10*6/uL (4.20-5.50)
[2021-02-14 06:50] LABS: Anion Gap 10 (12-20); Blood Urea Nitrogen 30 mg/dL (9-16); C Reactive Protein 0.81 mg/dL (< or = 0.50); Carbon Dioxide 35 mmol/L (22-29); Chloride 100 mmol/L (96-108); Creatinine Clr Calc Pharmacy 69.9; Estimated Glomerular Filt Rate > 60; Glucose Fasting 127 mg/dL (60-99); Potassium 4.4 mmol/L (3.3-5.1); Sodium 141 mmol/L (135-145)
[2021-02-14 07:01] LABS: D Dimer High Sensitivity 280 NG/ML
[2021-02-14] MEDS: Gabapentin 100 MG CAPSULE 500 MG PO ×3 (10:00→21:17)
[2021-02-14] MEDS: polyethylene glycoL 3350 17 GM POWD.PACK PO (10:00)
[2021-02-14] MEDS: 0.9 % Sodium Chloride Flush 3 ML SYRINGE IVFLUSH ×3 (10:00→21:17)
[2021-02-14] MEDS: methADONE HCl 20 MG/2 ML ORAL.CONC 10 MG PO ×2 (10:01→21:17)
[2021-02-14] MEDS: risperiDONE 2 MG TABLET PO ×2 (10:02→21:21)
[2021-02-14] MEDS: DULoxetine HCl 60 MG CAPSULE.DR PO (10:02)
[2021-02-14] MEDS: Apixaban 5 MG TABLET PO ×2 (10:02→21:16)
[2021-02-14] MEDS: lisinopriL 2.5 MG TABLET PO (10:02)
[2021-02-14] MEDS: busPIRone HCl 5 MG TABLET PO ×3 (10:03→21:16)
[2021-02-14] MEDS: Sennosides 8.6 MG TABLET 17.2 MG PO (10:04)
--- NOTE | 2021-02-14 11:36 | HO.PM.IMPN ---
Subjective Subjective Date of Service: 02/14/21 Interval History: ?cc: ams, hypoxia interval history: hungry Cardiovascular Cardiovascular: Reports no additional cardiovascular complaints Gastrointestinal Gastrointestinal: Reports no additional gastrointestinal complaints Physical Exam Vital Signs: Vital Signs: Last Vital Signs Temp 98.1 F 02/14/21 11:26 Pulse 93 02/14/21 11:26 Resp 18 02/14/21 11:26 BP 127/69 02/14/21 11:26 Pulse Ox 95 02/14/21 11:26 BMI result Body Mass Index 19.8 General: AO X 3, no acute distress, frail Resp:? diminished bilateral, no accessory muscles used CVS: S1,S2,RRR GI: soft, non tender, non distended Neuro:? motor grossly intact, alert Psych: flat affect, impaired insight? Objective Data Active Medications Al Hydroxide/Mg Hydroxide (Magnesium Hydrox/Alum Hydrox 30 Ml Oral.Susp) 30 ml PO Q4H PRN PRN Reason: GERD Apixaban (Apixaban 5 Mg Tablet) 5 mg PO BID [facility] Last Admin: 02/14/21 10:02 Dose: 5 mg Documented by: RONY Buspirone HCl (Buspirone Hcl 5 Mg Tablet) 5 mg PO TID [facility] Last Admin: 02/14/21 10:03 Dose: 5 mg Documented by: RONY Collagenase (Collagenase Clostridium Hist. 30 Gm Tube) 1 appl TOPICAL BEDTIME [facility]; Protocol Last Admin: 02/13/21 21:18 Dose: 1 appl Documented by: NIMCO Doxycycline Hyclate (Doxycycline Hyclate 100 Mg Tablet) 100 mg PO Q12H [facility] Last Admin: 02/14/21 05:35 Dose: 100 mg Documented by: NIMCO Duloxetine HCl (Duloxetine Hcl 60 Mg Capsule.) 60 mg PO DAILY [facility] Last Admin: 02/14/21 10:02 Dose: 60 mg Documented by: RONY Gabapentin (Gabapentin 100 Mg Capsule) 500 mg PO TID [facility] Last Admin: 02/14/21 10:00 Dose: 500 mg Documented by: RONY Lamotrigine (Lamotrigine 100 Mg Tablet) 100 mg PO BEDTIME [facility] Last Admin: 02/13/21 21:05 Dose: 100 mg Documented by: NIMCO Levothyroxine Sodium (Levothyroxine Sodium 50 Mcg Tablet) 50 mcg PO DAILY@0600 [facility] Last Admin: 02/14/21 05:35 Dose: 50 mcg Documented by: NIMCO Lisinopril (Lisinopril 2.5 Mg Tablet) 2.5 mg PO DAILY [facility]; Protocol Last Admin: 02/14/21 10:02 Dose: 2.5 mg Documented by: RONY Methadone HCl (Methadone Hcl 20 Mg/2 Ml Oral.Conc) 10 mg PO DAILY PRN PRN Reason: OPIOID ADDICATION Methadone HCl (Methadone Hcl 20 Mg/2 Ml Oral.Conc) 10 mg PO BID [facility] Last Admin: 02/14/21 10:01 Dose: 10 mg Documented by: RONY Methylprednisolone Sodium Succinate (Methylprednisolone Sod Succ 40 Mg/Ml Vial) 60 mg IVPUSH Q6H [facility] Last Admin: 02/14/21 10:06 Dose: 60 mg Documented by: RONY Mirtazapine (Mirtazapine 15 Mg Tablet) 15 mg PO BEDTIME [facility] Last Admin: 02/13/21 21:06 Dose: 15 mg Documented by: NIMCO Pharmacy Consult (Consult Rx Perform Med Rec) 1 each MISCELLANE ONCE PRN PRN Reason: Consult order Polyethylene Glycol (Polyethylene Glycol 3350 17 Gm Powd.Pack) 17 gm PO DAILY [facility] Last Admin: 02/14/21 10:00 Dose: 17 gm Documented by: RONY Risperidone (Risperidone 2 Mg Tablet) 2 mg PO BID [facility] Last Admin: 02/14/21 10:02 Dose: 2 mg Documented by: RONY Senna (Sennosides 8.6 Mg Tablet) 17.2 mg PO DAILY [facility] Last Admin: 02/14/21 10:04 Dose: 17.2 mg Documented by: RONY Sodium Chloride (0.9 % Sodium Chloride Flush 3 Ml Syringe) 3 ml IVFLUSH QSHIFT [facility] Last Admin: 02/14/21 10:00 Dose: 3 ml Documented by: RONY Tiotropium [place] (Tiotropium [place] 18 Mcg Cap.W.Dev) 2 puff INHALE RDAILY [facility] Last Admin: 02/14/21 08:22 Dose: 2 puff Documented by: BASSAM Labs CBC & Chem 7: 02/14/21 06:16 02/14/21 06:16 Labs: Laboratory Results - last 24 hr 02/14/21 02/14/21 02/14/21 06:16 06:16 06:16 MCV 88.0 MCH 25.7 L MCHC 29.2 L RDW 18.0 H Plt Count 292 MPV 9.6 Absolute Nucleated RBC 0.000 Nucleated RBC % (auto) 0.0 D-Dimer High Sensitivty 280 Anion Gap 10 L Estim Creat Clear Calc 69.9 Estimated GFR > 60 Fasting Glucose 127 H Calcium 9.0 C-Reactive Protein 0.81 H Assessment and Plan (1) Acute respiratory failure with hypoxia: Status: Acute (2) Cellulitis of heel, right: Status: Acute Assessment and Plan: ?70F with known covid, found to be unresponsive, hypoxic, and painful right heel ulcer acute hypoxic respiratory failure complicated by metabolic encephalopathy due to covid pneumonia will deescalate steroids wean o2 as tolerated for saturation of 90-93% Pulmonary consult appreciated infected right heel ulcer with cellulitis turned out to be coag negative, likely contaminant plan for 8 weeks of doxy (can be po) (end mar 28, 2021) s/p bedside debridement 02/01/21 continue local care dementia, 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
[2021-02-14] MEDS: Collagenase Clostridium Hist. 30 GM TUBE 1 APPL TOPICAL (21:16)
[2021-02-14] MEDS: lamoTRIgine 100 MG TABLET PO (21:16)
[2021-02-14] MEDS: Mirtazapine 15 MG TABLET PO (21:16)
[2021-02-14] MEDS: methylPREDNISolone Sod Succ 40 MG/ML VIAL IVPUSH (23:19)
[2021-02-15] VITALS (14 sets, daily range): BP systolic 108–136; BP diastolic 60–84; PULSE 75–90; RESP 17–20; TEMP 35.8–37.1; O2SAT 91–100
--- NOTE | 2021-02-15 01:34 | PC.NURSE ---
notified Dr. Nunez of midnoc bp 86/52 hr 70's pt denies: dizziness, sob, lightheadedness or chest pain. to assess bp at next 4h vitals for potential 250ml NS bolus. will continue to monitor.
[2021-02-15] MEDS: Levothyroxine Sodium 50 MCG TABLET PO (06:10)
--- NOTE | 2021-02-15 07:08 | PC.NURSE ---
0400 sbp improved to 108
[2021-02-15] MEDS: methADONE HCl 20 MG/2 ML ORAL.CONC 10 MG PO ×2 (08:31→21:02)
[2021-02-15] MEDS: polyethylene glycoL 3350 17 GM POWD.PACK PO (08:31)
[2021-02-15] MEDS: Apixaban 5 MG TABLET PO ×2 (08:31→21:02)
[2021-02-15] MEDS: DULoxetine HCl 60 MG CAPSULE.DR PO (08:31)
[2021-02-15] MEDS: lisinopriL 2.5 MG TABLET PO (08:31)
[2021-02-15] MEDS: 0.9 % Sodium Chloride Flush 3 ML SYRINGE IVFLUSH ×3 (08:31→21:02)
[2021-02-15] MEDS: Gabapentin 100 MG CAPSULE 500 MG PO ×3 (08:32→21:02)
[2021-02-15] MEDS: risperiDONE 2 MG TABLET PO ×2 (08:32→21:02)
[2021-02-15] MEDS: Sennosides 8.6 MG TABLET 17.2 MG PO (08:32)
[2021-02-15] MEDS: busPIRone HCl 5 MG TABLET PO ×3 (08:32→21:02)
--- NOTE | 2021-02-15 10:21 | P.PNIM_ITS ---
Subjective Subjective Date of Service: 02/15/21 Interval History: cc: ams, hypoxia interval history: hungry Cardiovascular Cardiovascular: Reports no additional cardiovascular complaints Respiratory Respiratory: Reports no additional respiratory complaints Physical Exam Vital Signs: Vital Signs: Last Vital Signs Temp 98.5 F 02/15/21 08:00 Pulse 76 02/15/21 08:31 Resp 20 02/15/21 08:00 BP 119/71 02/15/21 08:31 Pulse Ox 100 02/15/21 08:00 BMI result Body Mass Index 19.8 General: AO X 3, no acute distress, frail Resp:? diminished bilateral, no accessory muscles used CVS: S1,S2,RRR GI: soft, non tender, non distended Neuro:? motor grossly intact, alert Psych: flat affect, impaired insight? Objective Data Active Medications Al Hydroxide/Mg Hydroxide (Magnesium Hydrox/Alum Hydrox 30 Ml Oral.Susp) 30 ml PO Q4H PRN PRN Reason: GERD Apixaban (Apixaban 5 Mg Tablet) 5 mg PO BID [facility] Last Admin: 02/15/21 08:31 Dose: 5 mg Documented by: RYAN Buspirone HCl (Buspirone Hcl 5 Mg Tablet) 5 mg PO TID [facility] Last Admin: 02/15/21 08:32 Dose: 5 mg Documented by: RYAN Collagenase (Collagenase Clostridium Hist. 30 Gm Tube) 1 appl TOPICAL BEDTIME [facility]; Protocol Last Admin: 02/14/21 21:16 Dose: 1 appl Documented by: NICOLE Doxycycline Hyclate (Doxycycline Hyclate 100 Mg Tablet) 100 mg PO Q12H [facility] Last Admin: 02/15/21 06:10 Dose: 100 mg Documented by: NICOLE Duloxetine HCl (Duloxetine Hcl 60 Mg Capsule.) 60 mg PO DAILY [facility] Last Admin: 02/15/21 08:31 Dose: 60 mg Documented by: RYAN Gabapentin (Gabapentin 100 Mg Capsule) 500 mg PO TID [facility] Last Admin: 02/15/21 08:32 Dose: 500 mg Documented by: RYAN Lamotrigine (Lamotrigine 100 Mg Tablet) 100 mg PO BEDTIME [facility] Last Admin: 02/14/21 21:16 Dose: 100 mg Documented by: NICOLE Levothyroxine Sodium (Levothyroxine Sodium 50 Mcg Tablet) 50 mcg PO DAILY@0600 [facility] Last Admin: 02/15/21 06:10 Dose: 50 mcg Documented by: NICOLE Lisinopril (Lisinopril 2.5 Mg Tablet) 2.5 mg PO DAILY [facility]; Protocol Last Admin: 02/15/21 08:31 Dose: 2.5 mg Documented by: RYAN Methadone HCl (Methadone Hcl 20 Mg/2 Ml Oral.Conc) 10 mg PO DAILY PRN PRN Reason: OPIOID ADDICATION Methadone HCl (Methadone Hcl 20 Mg/2 Ml Oral.Conc) 10 mg PO BID [facility] Last Admin: 02/15/21 08:31 Dose: 10 mg Documented by: RYAN Methylprednisolone Sodium Succinate (Methylprednisolone Sod Succ 40 Mg/Ml Vial) 40 mg IVPUSH Q12H [facility] Last Admin: 02/14/21 23:19 Dose: 40 mg Documented by: NICOLE Mirtazapine (Mirtazapine 15 Mg Tablet) 15 mg PO BEDTIME [facility] Last Admin: 02/14/21 21:16 Dose: 15 mg Documented by: NICOLE Pharmacy Consult (Consult Rx Perform Med Rec) 1 each MISCELLANE ONCE PRN PRN Reason: Consult order Polyethylene Glycol (Polyethylene Glycol 3350 17 Gm Powd.Pack) 17 gm PO DAILY [facility] Last Admin: 02/15/21 08:31 Dose: 17 gm Documented by: RYAN Risperidone (Risperidone 2 Mg Tablet) 2 mg PO BID [facility] Last Admin: 02/15/21 08:32 Dose: 2 mg Documented by: RYAN Senna (Sennosides 8.6 Mg Tablet) 17.2 mg PO DAILY [facility] Last Admin: 02/15/21 08:32 Dose: 17.2 mg Documented by: RYAN Sodium Chloride (0.9 % Sodium Chloride Flush 3 Ml Syringe) 3 ml IVFLUSH QSHIFT [facility] Last Admin: 02/15/21 08:31 Dose: 3 ml Documented by: RYAN Tiotropium [place] (Tiotropium [place] 18 Mcg Cap.W.Dev) 2 puff INHALE RDAILY [facility] Last Admin: 02/15/21 07:56 Dose: Not Given Documented by: MIGDALIA Non-Admin Reason: Med Not Available Labs CBC & Chem 7: 02/14/21 06:16 02/14/21 06:16 Assessment and Plan (1) Acute respiratory failure with hypoxia: Status: Acute (2) Cellulitis of heel, right: Status: Acute Assessment and Plan: ?70F with known covid, found to be unresponsive, hypoxic, and painful right heel ulcer acute hypoxic respiratory failure complicated by metabolic encephalopathy due to covid pneumonia ocnitnue solumedrol bid wean o2 as tolerated for saturation of 90-93% Pulmonary consult appreciated infected right heel ulcer with cellulitis turned out to be coag negative, likely contaminant plan for 8 weeks of doxy (can be po) (end mar 28, 2021) s/p bedside debridement 02/01/21 continue local care dementia, 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
--- NOTE | 2021-02-15 11:57 | MHC.CLN ---
F/U DIET=2 GRAM SODIUM, PUREE. SUPPLEMENT ENSURE BID TO PROMOTE WOUND HEALING. PATIENT WITH MULTIPLE PRESSURE INJURIES. INTAKE APPEARS USUALLY GOOD. CONTINUE CURRENT DIET AND SUPPLEMENT.
[2021-02-15] MEDS: methylPREDNISolone Sod Succ 40 MG/ML VIAL IVPUSH ×2 (13:03→23:37)
[2021-02-15] MEDS: lamoTRIgine 100 MG TABLET PO (21:02)
[2021-02-15] MEDS: Mirtazapine 15 MG TABLET PO (21:02)
[2021-02-15] MEDS: Collagenase Clostridium Hist. 30 GM TUBE 1 APPL TOPICAL (21:03)
[2021-02-16] VITALS (8 sets, daily range): BP systolic 109–135; BP diastolic 62–79; PULSE 69–101; RESP 16–20; TEMP 35.5–37; O2SAT 94–100
[2021-02-16] MEDS: Levothyroxine Sodium 50 MCG TABLET PO (05:34)
[2021-02-16] MEDS: methylPREDNISolone Sod Succ 40 MG/ML VIAL IVPUSH (10:18)
[2021-02-16] MEDS: DULoxetine HCl 60 MG CAPSULE.DR PO (10:18)
[2021-02-16] MEDS: risperiDONE 2 MG TABLET PO ×2 (10:18→20:02)
[2021-02-16] MEDS: polyethylene glycoL 3350 17 GM POWD.PACK PO (10:18)
[2021-02-16] MEDS: methADONE HCl 20 MG/2 ML ORAL.CONC 10 MG PO ×2 (10:18→20:03)
[2021-02-16] MEDS: busPIRone HCl 5 MG TABLET PO ×3 (10:18→20:02)
[2021-02-16] MEDS: Sennosides 8.6 MG TABLET 17.2 MG PO (10:19)
[2021-02-16] MEDS: Apixaban 5 MG TABLET PO ×2 (10:19→20:02)
[2021-02-16] MEDS: lisinopriL 2.5 MG TABLET PO (10:19)
[2021-02-16] MEDS: Gabapentin 100 MG CAPSULE 500 MG PO ×3 (10:19→20:02)
--- NOTE | 2021-02-16 10:19 | P.PNIM_ITS ---
Subjective Subjective Date of Service: 02/16/21 Interval History: cc: ams, hypoxia interval history: hungry Cardiovascular Cardiovascular: Reports no additional cardiovascular complaints Gastrointestinal Gastrointestinal: Reports no additional gastrointestinal complaints Physical Exam Vital Signs: Vital Signs: Last Vital Signs Temp 97 F 02/16/21 07:01 Pulse 75 02/16/21 07:01 Resp 20 02/16/21 08:28 BP 135/79 02/16/21 07:01 Pulse Ox 100 02/16/21 07:01 BMI result Body Mass Index 19.8 General: AO X 3, no acute distress, frail Resp:? diminished bilateral, no accessory muscles used CVS: S1,S2,RRR GI: soft, non tender, non distended Neuro:? motor grossly intact, alert Psych: flat affect, impaired insight? Objective Data Active Medications Al Hydroxide/Mg Hydroxide (Magnesium Hydrox/Alum Hydrox 30 Ml Oral.Susp) 30 ml PO Q4H PRN PRN Reason: GERD Apixaban (Apixaban 5 Mg Tablet) 5 mg PO BID [facility] Last Admin: 02/15/21 21:02 Dose: 5 mg Documented by: MOLINA Buspirone HCl (Buspirone Hcl 5 Mg Tablet) 5 mg PO TID [facility] Last Admin: 02/15/21 21:02 Dose: 5 mg Documented by: MOLINA Collagenase (Collagenase Clostridium Hist. 30 Gm Tube) 1 appl TOPICAL BEDTIME [facility]; Protocol Last Admin: 02/15/21 21:03 Dose: 1 appl Documented by: MOLINA Doxycycline Hyclate (Doxycycline Hyclate 100 Mg Tablet) 100 mg PO Q12H [facility] Last Admin: 02/16/21 05:34 Dose: 100 mg Documented by: MOLINA Duloxetine HCl (Duloxetine Hcl 60 Mg Capsule.) 60 mg PO DAILY [facility] Last Admin: 02/15/21 08:31 Dose: 60 mg Documented by: RYAN Gabapentin (Gabapentin 100 Mg Capsule) 500 mg PO TID [facility] Last Admin: 02/15/21 21:02 Dose: 500 mg Documented by: MOLINA Lamotrigine (Lamotrigine 100 Mg Tablet) 100 mg PO BEDTIME [facility] Last Admin: 02/15/21 21:02 Dose: 100 mg Documented by: MOLINA Levothyroxine Sodium (Levothyroxine Sodium 50 Mcg Tablet) 50 mcg PO DAILY@0600 [facility] Last Admin: 02/16/21 05:34 Dose: 50 mcg Documented by: MOLINA Lisinopril (Lisinopril 2.5 Mg Tablet) 2.5 mg PO DAILY [facility]; Protocol Last Admin: 02/15/21 08:31 Dose: 2.5 mg Documented by: RYAN Methadone HCl (Methadone Hcl 20 Mg/2 Ml Oral.Conc) 10 mg PO DAILY PRN PRN Reason: OPIOID ADDICATION Methadone HCl (Methadone Hcl 20 Mg/2 Ml Oral.Conc) 10 mg PO BID [facility] Last Admin: 02/15/21 21:02 Dose: 10 mg Documented by: MOLINA Methylprednisolone Sodium Succinate (Methylprednisolone Sod Succ 40 Mg/Ml Vial) 40 mg IVPUSH Q12H [facility] Last Admin: 02/15/21 23:37 Dose: 40 mg Documented by: MOLINA Mirtazapine (Mirtazapine 15 Mg Tablet) 15 mg PO BEDTIME [facility] Last Admin: 02/15/21 21:02 Dose: 15 mg Documented by: MOLINA Pharmacy Consult (Consult Rx Perform Med Rec) 1 each MISCELLANE ONCE PRN PRN Reason: Consult order Polyethylene Glycol (Polyethylene Glycol 3350 17 Gm Powd.Pack) 17 gm PO DAILY [facility] Last Admin: 02/15/21 08:31 Dose: 17 gm Documented by: RYAN Risperidone (Risperidone 2 Mg Tablet) 2 mg PO BID [facility] Last Admin: 02/15/21 21:02 Dose: 2 mg Documented by: MOLINA Senna (Sennosides 8.6 Mg Tablet) 17.2 mg PO DAILY [facility] Last Admin: 02/15/21 08:32 Dose: 17.2 mg Documented by: RYAN Sodium Chloride (0.9 % Sodium Chloride Flush 3 Ml Syringe) 3 ml IVFLUSH QSHIFT [facility] Last Admin: 02/15/21 21:02 Dose: 3 ml Documented by: MOLINA Tiotropium [place] (Tiotropium [place] 18 Mcg Cap.W.Dev) 2 puff INHALE RDAILY [facility] Last Admin: 02/16/21 08:28 Dose: 2 puff Documented by: MARTÍN Labs CBC & Chem 7: 02/14/21 06:16 02/14/21 06:16 Assessment and Plan (1) Acute respiratory failure with hypoxia: Status: Acute (2) Cellulitis of heel, right: Status: Acute Assessment and Plan: ?70F with known covid, found to be unresponsive, hypoxic, and painful right heel ulcer acute hypoxic respiratory failure complicated by metabolic encephalopathy due to covid pneumonia continue to wean solumedrol wean o2 as tolerated for saturation of 90-93% now off high flow infected right heel ulcer with cellulitis turned out to be coag negative, likely contaminant plan for 8 weeks of doxy (can be po) (end mar 28, 2021) s/p bedside debridement 02/01/21 continue local care dementia, 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
[2021-02-16] MEDS: 0.9 % Sodium Chloride Flush 3 ML SYRINGE IVFLUSH ×3 (10:20→20:03)
[2021-02-16] MEDS: Mirtazapine 15 MG TABLET PO (20:02)
[2021-02-16] MEDS: lamoTRIgine 100 MG TABLET PO (20:03)
[2021-02-16] MEDS: Collagenase Clostridium Hist. 30 GM TUBE 1 APPL TOPICAL (20:03)
[2021-02-17 02:50] VITALS: BP 131/72; PULSE 74; RESP 20; TEMP 36.4; O2SAT 96
[2021-02-17] MEDS: Levothyroxine Sodium 50 MCG TABLET PO (05:40)
[2021-02-17 07:13] LABS: Hematocrit 35.2 % (37.0-47.0); Hemoglobin 10.1 g/dl (12.0-16.0); Mean Corpuscular HGB Conc 28.7 g/dl (31.0-35.0); Mean Corpuscular Hemoglobin 25.7 pg (27.0-33.0); Mean Corpuscular Volume 89.6 fL (80.0-98.0); Mean Platelet Volume 9.4 fL (9.4-12.3); Platelet Count 199 X10*3/uL (160-400); Red Blood Count 3.93 X10*6/uL (4.20-5.50); Red Cell Distribution Width 18.6 % (11.0-16.0); White Blood Count 9.6 X10*3/uL (4.8-10.8)
--- NOTE | 2021-02-17 07:25 | PC.NURSE ---
Cleaned and changed all of the patients wound dressings, including the R heel, bilateral buttocks, mid back, and L posterior thigh. Compared to pictures from patients admission, the wounds appear to be progressively worse. Patient is on airloss bed, repo Q2H, heels floated on pillows. This RN tiger texted the wound care nurse for consult.
[2021-02-17 07:32] LABS: Anion Gap 10 (12-20); Blood Urea Nitrogen 28 mg/dL (9-16); Calcium 8.6 mg/dL (8.4-10.2); Carbon Dioxide 34 mmol/L (22-29); Chloride 100 mmol/L (96-108); Creatinine Clr Calc Pharmacy 81.1; Estimated Glomerular Filt Rate > 60; Glucose Fasting 69 mg/dL (60-99); Sodium 139 mmol/L (135-145)
[2021-02-17 08:00] VITALS: BP 127/81; PULSE 75; TEMP 36.6; O2SAT 96
[2021-02-17] MEDS: Gabapentin 100 MG CAPSULE 500 MG PO ×3 (09:46→20:42)
[2021-02-17] MEDS: polyethylene glycoL 3350 17 GM POWD.PACK PO (09:46)
[2021-02-17] MEDS: busPIRone HCl 5 MG TABLET PO ×3 (09:46→20:42)
[2021-02-17] MEDS: methADONE HCl 20 MG/2 ML ORAL.CONC 10 MG PO ×2 (09:46→20:41)
[2021-02-17] MEDS: methylPREDNISolone Sod Succ 40 MG/ML VIAL IVPUSH (09:47)
[2021-02-17] MEDS: risperiDONE 2 MG TABLET PO ×2 (09:47→20:42)
[2021-02-17] MEDS: DULoxetine HCl 60 MG CAPSULE.DR PO (09:47)
[2021-02-17] MEDS: lisinopriL 2.5 MG TABLET PO (09:47)
[2021-02-17] MEDS: Sennosides 8.6 MG TABLET 17.2 MG PO (09:47)
[2021-02-17] MEDS: Apixaban 5 MG TABLET PO ×2 (09:47→20:42)
[2021-02-17] MEDS: 0.9 % Sodium Chloride Flush 3 ML SYRINGE IVFLUSH ×2 (09:48→15:13)
--- NOTE | 2021-02-17 09:52 | HO.PM.IMPN ---
Subjective Subjective Date of Service: 02/17/21 Interval History: cc: ams, hypoxia interval history: hungry Cardiovascular Cardiovascular: Reports no additional cardiovascular complaints Gastrointestinal Gastrointestinal: Reports no additional gastrointestinal complaints Physical Exam Vital Signs: Vital Signs: Last Vital Signs Temp 97.8 F 02/17/21 08:00 Pulse 75 02/17/21 08:00 Resp 20 02/17/21 02:50 BP 127/81 02/17/21 08:00 Pulse Ox 96 02/17/21 08:00 BMI result Body Mass Index 19.8 General: AO X 3, no acute distress, frail Resp:? diminished bilateral, no accessory muscles used CVS: S1,S2,RRR GI: soft, non tender, non distended Neuro:? motor grossly intact, alert Psych: flat affect, impaired insight? Objective Data Active Medications Al Hydroxide/Mg Hydroxide (Magnesium Hydrox/Alum Hydrox 30 Ml Oral.Susp) 30 ml PO Q4H PRN PRN Reason: GERD Apixaban (Apixaban 5 Mg Tablet) 5 mg PO BID [facility] Last Admin: 02/17/21 09:47 Dose: 5 mg Documented by: OBED Buspirone HCl (Buspirone Hcl 5 Mg Tablet) 5 mg PO TID [facility] Last Admin: 02/17/21 09:46 Dose: 5 mg Documented by: OBED Collagenase (Collagenase Clostridium Hist. 30 Gm Tube) 1 appl TOPICAL BEDTIME [facility]; Protocol Last Admin: 02/16/21 20:03 Dose: 1 appl Documented by: MOLINA Doxycycline Hyclate (Doxycycline Hyclate 100 Mg Tablet) 100 mg PO Q12H [facility] Last Admin: 02/17/21 05:40 Dose: 100 mg Documented by: MOLINA Duloxetine HCl (Duloxetine Hcl 60 Mg Capsule.) 60 mg PO DAILY [facility] Last Admin: 02/17/21 09:47 Dose: 60 mg Documented by: OBED Gabapentin (Gabapentin 100 Mg Capsule) 500 mg PO TID [facility] Last Admin: 02/17/21 09:46 Dose: 500 mg Documented by: OBED Lamotrigine (Lamotrigine 100 Mg Tablet) 100 mg PO BEDTIME [facility] Last Admin: 02/16/21 20:03 Dose: 100 mg Documented by: MOLINA Levothyroxine Sodium (Levothyroxine Sodium 50 Mcg Tablet) 50 mcg PO DAILY@0600 [facility] Last Admin: 02/17/21 05:40 Dose: 50 mcg Documented by: MOLINA Lisinopril (Lisinopril 2.5 Mg Tablet) 2.5 mg PO DAILY [facility]; Protocol Last Admin: 02/17/21 09:47 Dose: 2.5 mg Documented by: OBED Methadone HCl (Methadone Hcl 20 Mg/2 Ml Oral.Conc) 10 mg PO DAILY PRN PRN Reason: OPIOID ADDICATION Methadone HCl (Methadone Hcl 20 Mg/2 Ml Oral.Conc) 10 mg PO BID [facility] Last Admin: 02/17/21 09:46 Dose: 10 mg Documented by: OBED Methylprednisolone Sodium Succinate (Methylprednisolone Sod Succ 40 Mg/Ml Vial) 40 mg IVPUSH Q24H [facility] Last Admin: 02/17/21 09:47 Dose: 40 mg Documented by: OBED Mirtazapine (Mirtazapine 15 Mg Tablet) 15 mg PO BEDTIME [facility] Last Admin: 02/16/21 20:02 Dose: 15 mg Documented by: MOLINA Pharmacy Consult (Consult Rx Perform Med Rec) 1 each MISCELLANE ONCE PRN PRN Reason: Consult order Polyethylene Glycol (Polyethylene Glycol 3350 17 Gm Powd.Pack) 17 gm PO DAILY [facility] Last Admin: 02/17/21 09:46 Dose: 17 gm Documented by: OBED Risperidone (Risperidone 2 Mg Tablet) 2 mg PO BID [facility] Last Admin: 02/17/21 09:47 Dose: 2 mg Documented by: OBED Senna (Sennosides 8.6 Mg Tablet) 17.2 mg PO DAILY [facility] Last Admin: 02/17/21 09:47 Dose: 17.2 mg Documented by: OBED Sodium Chloride (0.9 % Sodium Chloride Flush 3 Ml Syringe) 3 ml IVFLUSH QSHIFT [facility] Last Admin: 02/17/21 09:48 Dose: 3 ml Documented by: OBED Tiotropium [place] (Tiotropium [place] 18 Mcg Cap.W.Dev) 2 puff INHALE RDAILY [facility] Last Admin: 02/17/21 08:28 Dose: Not Given Documented by: MARTÍN Non-Admin Reason: Patient Refused Labs CBC & Chem 7: 02/17/21 06:49 02/17/21 06:49 Labs: Laboratory Results - last 24 hr 12/26/21 12/26/21 06:49 06:49 MCV 89.6 MCH 25.7 L MCHC 28.7 L RDW 18.6 H Plt Count 199 D MPV 9.4 Absolute Nucleated RBC 0.000 Nucleated RBC % (auto) 0.0 Anion Gap 10 L Estim Creat Clear Calc 81.1 Estimated GFR > 60 Fasting Glucose 69 Calcium 8.6 Assessment and Plan (1) Acute respiratory failure with hypoxia: Status: Acute (2) Cellulitis of heel, right: Status: Acute Assessment and Plan: ?70F with known covid, found to be unresponsive, hypoxic, and painful right heel ulcer acute hypoxic respiratory failure complicated by metabolic encephalopathy due to covid pneumonia will change solumedrol to prednisone wean o2 as tolerated for saturation of 90-93% now off high flow infected right heel ulcer with cellulitis turned out to be coag negative, likely contaminant plan for 8 weeks of doxy (can be po) (end mar 28, 2021) s/p bedside debridement 02/01/21 continue local care dementia, 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
[2021-02-17 11:10] VITALS: BP 100/56; PULSE 86; RESP 14; TEMP 36.6; O2SAT 93
[2021-02-17 15:10] VITALS: BP 103/52; PULSE 82; RESP 19; TEMP 36.6; O2SAT 96
[2021-02-17 19:06] VITALS: BP 101/59; PULSE 98; RESP 20; TEMP 37; O2SAT 96
[2021-02-17] MEDS: Collagenase Clostridium Hist. 30 GM TUBE 1 APPL TOPICAL (20:42)
[2021-02-17] MEDS: lamoTRIgine 100 MG TABLET PO (20:42)
[2021-02-17] MEDS: Mirtazapine 15 MG TABLET PO (20:42)
[2021-02-18] VITALS (7 sets, daily range): BP systolic 92–128; BP diastolic 54–82; PULSE 60–91; RESP 16–22; TEMP 36.3–37.2; O2SAT 96–100
[2021-02-18] MEDS: 0.9 % Sodium Chloride Flush 3 ML SYRINGE IVFLUSH ×3 (00:19→20:35)
[2021-02-18] MEDS: Levothyroxine Sodium 50 MCG TABLET PO (05:33)
[2021-02-18] MEDS: DULoxetine HCl 60 MG CAPSULE.DR PO (09:18)
[2021-02-18] MEDS: methADONE HCl 20 MG/2 ML ORAL.CONC 10 MG PO ×2 (09:18→20:34)
[2021-02-18] MEDS: risperiDONE 2 MG TABLET PO ×2 (09:18→20:35)
[2021-02-18] MEDS: Apixaban 5 MG TABLET PO ×2 (09:18→20:34)
[2021-02-18] MEDS: busPIRone HCl 5 MG TABLET PO ×3 (09:18→20:35)
[2021-02-18] MEDS: lisinopriL 2.5 MG TABLET PO (09:19)
[2021-02-18] MEDS: predniSONE 20 MG TABLET 40 MG PO (09:19)
[2021-02-18] MEDS: Sennosides 8.6 MG TABLET 17.2 MG PO (09:19)
[2021-02-18] MEDS: Gabapentin 100 MG CAPSULE 500 MG PO ×3 (09:19→20:34)
[2021-02-18] MEDS: polyethylene glycoL 3350 17 GM POWD.PACK PO (09:20)
--- NOTE | 2021-02-18 09:25 | P.PNIM_ITS ---
Subjective Subjective Date of Service: 02/18/21 Interval History: cc: ams, hypoxia interval history: continues to improved, only interested in eating Cardiovascular Cardiovascular: Reports no additional cardiovascular complaints Respiratory Respiratory: Reports no additional respiratory complaints Physical Exam Vital Signs: Vital Signs: Last Vital Signs Temp 97.4 F 02/18/21 07:55 Pulse 86 02/18/21 07:55 Resp 22 H 02/18/21 07:55 BP 128/82 02/18/21 07:55 Pulse Ox 98 02/18/21 07:55 BMI result Body Mass Index 19.8 General: AO X 3, no acute distress, frail Resp:? diminished bilateral, no accessory muscles used CVS: S1,S2,RRR GI: soft, non tender, non distended Neuro:? motor grossly intact, alert Psych: flat affect, impaired insight? Objective Data Active Medications Al Hydroxide/Mg Hydroxide (Magnesium Hydrox/Alum Hydrox 30 Ml Oral.Susp) 30 ml PO Q4H PRN PRN Reason: GERD Apixaban (Apixaban 5 Mg Tablet) 5 mg PO BID [facility] Last Admin: 02/18/21 09:18 Dose: 5 mg Documented by: GENE Buspirone HCl (Buspirone Hcl 5 Mg Tablet) 5 mg PO TID [facility] Last Admin: 02/18/21 09:18 Dose: 5 mg Documented by: GENE Collagenase (Collagenase Clostridium Hist. 30 Gm Tube) 1 appl TOPICAL BEDTIME [facility]; Protocol Last Admin: 02/17/21 20:42 Dose: 1 appl Documented by: TASHA Doxycycline Hyclate (Doxycycline Hyclate 100 Mg Tablet) 100 mg PO Q12H [facility] Last Admin: 02/18/21 05:33 Dose: 100 mg Documented by: UMA Duloxetine HCl (Duloxetine Hcl 60 Mg Capsule.) 60 mg PO DAILY [facility] Last Admin: 02/18/21 09:18 Dose: 60 mg Documented by: GENE Gabapentin (Gabapentin 100 Mg Capsule) 500 mg PO TID [facility] Last Admin: 02/18/21 09:19 Dose: 500 mg Documented by: GENE Lamotrigine (Lamotrigine 100 Mg Tablet) 100 mg PO BEDTIME [facility] Last Admin: 02/17/21 20:42 Dose: 100 mg Documented by: TASHA Levothyroxine Sodium (Levothyroxine Sodium 50 Mcg Tablet) 50 mcg PO DAILY@0600 [facility] Last Admin: 02/18/21 05:33 Dose: 50 mcg Documented by: UMA Lisinopril (Lisinopril 2.5 Mg Tablet) 2.5 mg PO DAILY [facility]; Protocol Last Admin: 02/18/21 09:19 Dose: 2.5 mg Documented by: GENE Methadone HCl (Methadone Hcl 20 Mg/2 Ml Oral.Conc) 10 mg PO DAILY PRN PRN Reason: OPIOID ADDICATION Methadone HCl (Methadone Hcl 20 Mg/2 Ml Oral.Conc) 10 mg PO BID [facility] Last Admin: 02/18/21 09:18 Dose: 10 mg Documented by: GENE Mirtazapine (Mirtazapine 15 Mg Tablet) 15 mg PO BEDTIME [facility] Last Admin: 02/17/21 20:42 Dose: 15 mg Documented by: TASHA Pharmacy Consult (Consult Rx Perform Med Rec) 1 each MISCELLANE ONCE PRN PRN Reason: Consult order Polyethylene Glycol (Polyethylene Glycol 3350 17 Gm Powd.Pack) 17 gm PO DAILY [facility] Last Admin: 02/18/21 09:20 Dose: 17 gm Documented by: GENE Prednisone (Prednisone 20 Mg Tablet) 40 mg PO DAILY [facility] Last Admin: 02/18/21 09:19 Dose: 40 mg Documented by: GENE Risperidone (Risperidone 2 Mg Tablet) 2 mg PO BID [facility] Last Admin: 02/18/21 09:18 Dose: 2 mg Documented by: GENE Senna (Sennosides 8.6 Mg Tablet) 17.2 mg PO DAILY [facility] Last Admin: 02/18/21 09:19 Dose: 17.2 mg Documented by: GENE Sodium Chloride (0.9 % Sodium Chloride Flush 3 Ml Syringe) 3 ml IVFLUSH QSHIFT [facility] Last Admin: 02/18/21 09:18 Dose: 3 ml Documented by: GENE Tiotropium [place] (Tiotropium [place] 18 Mcg Cap.W.Dev) 2 puff INHALE RDAILY [facility] Last Admin: 02/18/21 07:58 Dose: Not Given Documented by: MIGDALIA Non-Admin Reason: Med Not Available Labs CBC & Chem 7: 02/17/21 06:49 02/17/21 06:49 Assessment and Plan (1) Acute respiratory failure with hypoxia: Status: Acute (2) Cellulitis of heel, right: Status: Acute Assessment and Plan: ?70F with known covid, found to be unresponsive, hypoxic, and painful right heel ulcer acute hypoxic respiratory failure complicated by metabolic encephalopathy due to covid pneumonia continue prednisone wean o2 as tolerated for saturation of 90-93% now off high flow on 10L [place], conitnue to wean infected right heel ulcer with cellulitis turned out to be coag negative, likely contaminant plan for 8 weeks of doxy (can be po) (end mar 28, 2021) s/p bedside debridement 02/01/21 continue local care dementia, 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
--- NOTE | 2021-02-18 12:58 | PC.NURSE ---
Skin/wound assessment completed today. Patient has unstageable pressure ulcer to left heel, stage 3 pressure injury to right heel, stage 2 pressure injuries to mid back, left and right buttocks. All wounds cleansed with wound cleanser, Santyl applied to left and right heel covered with gauze and roll gauze. Hydrofera blue applied to mid back, left and right buttocks and left posterior thigh all coverd with foam dressing. These can be changed every 3rd day.
--- NOTE | 2021-02-18 15:20 | MHC.CM.PN ---
Female 70 DX Covid+ She is being weaned off oxygen. She is on 8L via [place]. DP She will return to [facility] VIA BLS. Once her O2 requirement decreases 4-5L.
--- NOTE | 2021-02-18 15:43 | MHC.CLN ---
F/U DIET=2 GRAM SODIUM, PUREE. SUPPLEMENT ENSURE BID (700 KCAL, 26 G PROTEIN) TO PROMOTE WOUND HEALING. PATIENT WITH MULTIPLE PRESSURE INJURIES-SEE WOUND REPORT. INTAKE APPEARS USUALLY GOOD. CONTINUE CURRENT DIET AND SUPPLEMENT.
[2021-02-18] MEDS: Mirtazapine 15 MG TABLET PO (20:34)
[2021-02-18] MEDS: lamoTRIgine 100 MG TABLET PO (20:35)
[2021-02-18] MEDS: Collagenase Clostridium Hist. 30 GM TUBE 1 APPL TOPICAL (20:43)
[2021-02-19 03:51] VITALS: BP 128/79; PULSE 69; RESP 18; TEMP 36.4; O2SAT 100
[2021-02-19] MEDS: Levothyroxine Sodium 50 MCG TABLET PO (05:49)
[2021-02-19 07:07] LABS: Hematocrit 32.5 % (37.0-47.0); Hemoglobin 9.3 g/dl (12.0-16.0); Mean Corpuscular HGB Conc 28.6 g/dl (31.0-35.0); Mean Corpuscular Hemoglobin 25.5 pg (27.0-33.0); Mean Platelet Volume 9.3 fL (9.4-12.3); Platelet Count 204 X10*3/uL (160-400); Red Blood Count 3.65 X10*6/uL (4.20-5.50); Red Cell Distribution Width 18.6 % (11.0-16.0)
[2021-02-19 07:08] VITALS: BP 115/69; PULSE 68; RESP 19; TEMP 36.5; O2SAT 94
[2021-02-19 08:34] LABS: Anion Gap 9 (12-20); Blood Urea Nitrogen 21 mg/dL (9-16); Calcium 8.6 mg/dL (8.4-10.2); Carbon Dioxide 40 mmol/L (22-29); Chloride 97 mmol/L (96-108); Creatinine Clr Calc Pharmacy 76.9; Estimated Glomerular Filt Rate > 60; Glucose Fasting 86 mg/dL (60-99); Potassium 4.6 mmol/L (3.3-5.1); Sodium 141 mmol/L (135-145)
[2021-02-19] MEDS: methADONE HCl 20 MG/2 ML ORAL.CONC 10 MG PO (09:34)
[2021-02-19] MEDS: Gabapentin 100 MG CAPSULE 500 MG PO ×2 (09:35→14:16)
[2021-02-19 09:36] VITALS: BP 115/69; PULSE 68
[2021-02-19] MEDS: predniSONE 20 MG TABLET 40 MG PO (09:36)
[2021-02-19] MEDS: lisinopriL 2.5 MG TABLET PO (09:36)
[2021-02-19] MEDS: busPIRone HCl 5 MG TABLET PO ×2 (09:36→14:16)
[2021-02-19] MEDS: Apixaban 5 MG TABLET PO (09:36)
[2021-02-19] MEDS: risperiDONE 2 MG TABLET PO (09:37)
[2021-02-19] MEDS: DULoxetine HCl 60 MG CAPSULE.DR PO (09:37)
[2021-02-19] MEDS: Sennosides 8.6 MG TABLET 17.2 MG PO (09:37)
[2021-02-19] MEDS: polyethylene glycoL 3350 17 GM POWD.PACK PO (09:39)
[2021-02-19] MEDS: 0.9 % Sodium Chloride Flush 3 ML SYRINGE IVFLUSH (09:39)
--- NOTE | 2021-02-19 09:49 | HO.PM.IMPN ---
Subjective Subjective Date of Service: 02/19/21 Interval History: cc: ams, hypoxia interval history: no complaints Cardiovascular Cardiovascular: Reports no additional cardiovascular complaints Respiratory Respiratory: Reports no additional respiratory complaints Physical Exam Vital Signs: Vital Signs: Last Vital Signs Temp 97.7 F 02/19/21 07:08 Pulse 68 02/19/21 09:36 Resp 19 02/19/21 07:08 BP 115/69 02/19/21 09:36 Pulse Ox 94 02/19/21 07:08 BMI result Body Mass Index 19.8 General: AO X 3, no acute distress, frail Resp:? diminished bilateral, no accessory muscles used CVS: S1,S2,RRR GI: soft, non tender, non distended Neuro:? motor grossly intact, alert Psych: flat affect, impaired insight? Objective Data Active Medications Al Hydroxide/Mg Hydroxide (Magnesium Hydrox/Alum Hydrox 30 Ml Oral.Susp) 30 ml PO Q4H PRN PRN Reason: GERD Apixaban (Apixaban 5 Mg Tablet) 5 mg PO BID [facility] Last Admin: 02/19/21 09:36 Dose: 5 mg Documented by: SARINA Buspirone HCl (Buspirone Hcl 5 Mg Tablet) 5 mg PO TID [facility] Last Admin: 02/19/21 09:36 Dose: 5 mg Documented by: SARINA Collagenase (Collagenase Clostridium Hist. 30 Gm Tube) 1 appl TOPICAL BEDTIME CHASE; Protocol Last Admin: 02/18/21 20:43 Dose: 1 appl Documented by: ELLEN Doxycycline Hyclate (Doxycycline Hyclate 100 Mg Tablet) 100 mg PO Q12H [facility] Last Admin: 02/19/21 05:49 Dose: 100 mg Documented by: ELLEN Duloxetine HCl (Duloxetine Hcl 60 Mg Capsule.) 60 mg PO DAILY [facility] Last Admin: 02/19/21 09:37 Dose: 60 mg Documented by: SARINA Gabapentin (Gabapentin 100 Mg Capsule) 500 mg PO TID [facility] Last Admin: 02/19/21 09:35 Dose: 500 mg Documented by: SARINA Lamotrigine (Lamotrigine 100 Mg Tablet) 100 mg PO BEDTIME [facility] Last Admin: 02/18/21 20:35 Dose: 100 mg Documented by: ELLEN Levothyroxine Sodium (Levothyroxine Sodium 50 Mcg Tablet) 50 mcg PO DAILY@0600 [facility] Last Admin: 02/19/21 05:49 Dose: 50 mcg Documented by: ELLEN Lisinopril (Lisinopril 2.5 Mg Tablet) 2.5 mg PO DAILY [facility]; Protocol Last Admin: 02/19/21 09:36 Dose: 2.5 mg Documented by: SARINA Methadone HCl (Methadone Hcl 20 Mg/2 Ml Oral.Conc) 10 mg PO DAILY PRN PRN Reason: OPIOID ADDICATION Methadone HCl (Methadone Hcl 20 Mg/2 Ml Oral.Conc) 10 mg PO BID [facility] Last Admin: 02/19/21 09:34 Dose: 10 mg Documented by: SARINA Mirtazapine (Mirtazapine 15 Mg Tablet) 15 mg PO BEDTIME [facility] Last Admin: 02/18/21 20:34 Dose: 15 mg Documented by: ELLEN Pharmacy Consult (Consult Rx Perform Med Rec) 1 each MISCELLANE ONCE PRN PRN Reason: Consult order Polyethylene Glycol (Polyethylene Glycol 3350 17 Gm Powd.Pack) 17 gm PO DAILY [facility] Last Admin: 02/19/21 09:39 Dose: 17 gm Documented by: SARINA Prednisone (Prednisone 20 Mg Tablet) 40 mg PO DAILY [facility] Last Admin: 02/19/21 09:36 Dose: 40 mg Documented by: SARINA Risperidone (Risperidone 2 Mg Tablet) 2 mg PO BID [facility] Last Admin: 02/19/21 09:37 Dose: 2 mg Documented by: SARINA Senna (Sennosides 8.6 Mg Tablet) 17.2 mg PO DAILY [facility] Last Admin: 02/19/21 09:37 Dose: 17.2 mg Documented by: SARINA Sodium Chloride (0.9 % Sodium Chloride Flush 3 Ml Syringe) 3 ml IVFLUSH QSHIFT [facility] Last Admin: 02/19/21 09:39 Dose: 3 ml Documented by: SARINA Tiotropium [place] (Tiotropium [place] 18 Mcg Cap.W.Dev) 2 puff INHALE RDAILY [facility] Last Admin: 02/19/21 07:55 Dose: Not Given Documented by: MIGDALIA Non-Admin Reason: Med Not Available Labs CBC & Chem 7: 02/19/21 06:22 02/19/21 06:22 Labs: Laboratory Results - last 24 hr 02/19/21 02/19/21 06:22 06:22 MCV 89.0 MCH 25.5 L MCHC 28.6 L RDW 18.6 H Plt Count 204 MPV 9.3 L Absolute Nucleated RBC 0.000 Nucleated RBC % (auto) 0.0 Anion Gap 9 L Estim Creat Clear Calc 76.9 Estimated GFR > 60 Fasting Glucose 86 Calcium 8.6 Assessment and Plan (1) Acute respiratory failure with hypoxia: Status: Acute (2) Cellulitis of heel, right: Status: Acute Assessment and Plan: ?70F with known covid, found to be unresponsive, hypoxic, and painful right heel ulcer acute hypoxic respiratory failure complicated by metabolic encephalopathy due to covid pneumonia continue prednisone wean o2 as tolerated for saturation of 90-93% now on 6L NC, conitnue to wean, goal for discharge would be stability on <5L/min infected right heel ulcer with cellulitis turned out to be coag negative, likely contaminant plan for 8 weeks of doxy (can be po) (end mar 28, 2021) s/p bedside debridement 02/01/21 continue local care dementia, 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
[2021-02-19 11:31] VITALS: BP 107/60; PULSE 77; RESP 18; TEMP 37.1; O2SAT 97
--- NOTE | 2021-02-19 12:21 | P.DS_ITS ---
DS: Providers Provider Date of Service: 02/19/21 Date of admission: 01/30/21 15:12 Primary care physician: Cassi Da Silva MD Consults: 01/31/21 09:36 Consult to General Surgery Routine Consulting Provider: Sarbjit Veloz Reason for consultation: right heel ulcer, bacteremia Consult to Infectious Diseases Routine Consulting Provider: Bernice Rivera Reason for consultation: right heel ulcer with bacteremia, covid 02/10/21 08:20 Consult to Pulmonology Routine Consulting Provider: Chico Hernández Reason for consultation: worsening hypoxemia post improvement in Covid Pt DS: Diagnosis Discharge Diagnosis (1) Acute respiratory failure with hypoxia: Status: Acute (2) Cellulitis of heel, right: Status: Acute DS: Summary Hospital Course Hospital Course: patient had prolonged hospital stay, for complete course please see medical record. In summary, patient was admitted for acute hypoxic respiratory failure and metabolic encephalopathy due to COVID pneumonia. She was treated with Decadron, later escalated to high-dose Solu-Medrol, patient did require use of high-flow oxygen with non-rebreather. Eventually she was able to be weaned all the way down to 4 liters/minute via nasal cannula which is at currently, she can continue to be weaned at longterm facility. She will be discharged on a prednisone taper. Patient was also noted to have a infected right heel ulcer with cellulitis. She was seen by surgery performed bedside debridement on 02/01/2021. She received local care with [facility]. She was seen by infectious disease recommended 8 weeks of doxycycline. This will be completed on 03/28/2021. Time Spent with Patient Time attestation: Total time spent providing and/or coordinating discharge services: Discharge coordination time: Greater than 30 minutes Quality: Stroke Does the patient have a stroke diagnosis?: No Physical Exam Vital Signs: Vital Signs: Last Vital Signs Temp 98.8 F 02/19/21 11:31 Pulse 77 02/19/21 11:31 Resp 18 02/19/21 11:31 BP 107/60 02/19/21 11:31 Pulse Ox 97 02/19/21 11:31 BMI result Body Mass Index 19.8 General: AO X 3, no acute distress, frail Resp:? diminished bilateral, no accessory muscles used CVS: S1,S2,RRR GI: soft, non tender, non distended Neuro:? motor grossly intact, alert Psych: flat affect, impaired insight? DS: Data Data Completed and Pending Labs on day of discharge: Laboratory Results - last 24 hr 02/19/21 02/19/21 06:22 06:22 WBC 8.0 RBC 3.65 L Hgb 9.3 L Hct 32.5 L MCV 89.0 MCH 25.5 L MCHC 28.6 L RDW 18.6 H Plt Count 204 MPV 9.3 L Absolute Nucleated RBC 0.000 Nucleated RBC % (auto) 0.0 Sodium 141 Potassium 4.6 Chloride 97 Carbon Dioxide 40 H* Anion Gap 9 L BUN 21 H Creatinine 0.59 Estim Creat Clear Calc 76.9 Estimated GFR > 60 Fasting Glucose 86 Calcium 8.6 Discharge Plan Discharge Patient Disposition: er [facility] Discharge Diagnosis: covid Referrals: Cassi Da Silva MD [Primary Care Provider] - 1 Week Discharge Medications: New prednisone 20 mg Tablet 40 mg PO DAILY 10 Days Qty: 0 RF: 0 doxycycline hyclate 100 mg Tablet 100 mg PO Q12H 38 Days Qty: 0 RF: 0 Continued buspirone 5 mg Tablet 5 mg PO TID RF: 0 sennosides [senna] 8.6 mg Tablet 17.2 mg PO DAILY RF: 0 acetaminophen 325 mg Tablet 650 mg PO Q6H PRN (Reason: Pain) RF: 0 polyethylene glycol 3350 [Miralax] 17 gram Powder In Packet 17 g PO DAILY RF: 0 methadone 10 mg Tablet 10 mg PO DAILY PRN (Reason: OPIOID ADDICATION) RF: 0 methadone 10 mg Tablet 10 mg PO BID RF: 0 risperidone 2 mg Tablet 2 mg PO BID RF: 0 alprazolam 0.5 mg Tablet 0.5 mg PO Q8H PRN (Reason: Anxiety) RF: 0 levothyroxine 50 mcg Tablet 50 mcg PO DAILY@0600 RF: 0 lisinopril 5 mg Tablet 2.5 mg PO DAILY RF: 0 mirtazapine [Remeron] 15 mg Tablet 15 mg PO BEDTIME RF: 0 gabapentin 100 mg Capsule 500 mg PO TID RF: 0 alum-mag hydroxide-simeth 200-200-20 mg/5 mL Suspension 30 ml PO Q4H PRN (Reason: GERD) RF: 0 Santyl 250 unit/gram Ointment 1 appl TOPICAL BEDTIME RF: 0 albuterol sulfate 90 mcg/actuation Hfa Aerosol Inhaler 2 puff INHALATION Q4-6H PRN (Reason: Wheezing) RF: 0 lamotrigine 100 mg Tablet 100 mg PO BEDTIME RF: 0 oxycodone 5 mg Tablet 5 mg PO Q6H PRN (Reason: Pain) RF: 0 duloxetine 60 mg Capsule,Delayed Release(Dr/Ec) 60 mg PO DAILY RF: 0 Spiriva Respimat 2.5 mcg/actuation Mist 2 puff INHALATION DAILY RF: 0 apixaban 5 mg Tablet 5 mg PO BID RF: 0 Discharge Orders: Discharge Order (Routine); Ordered 02/19/21 Ordered By: Toño Vargas Diet: advance to usual diet Activity on Discharge: As tolerated Stand Alone Forms: Patient Portal Discharge page Care Plan Goals: [facility] Concerns: COVID and right heel ulcer with osteomyelitis Plan of Treatment: prednisone taper, wean oxygen as tolerated, doxycycline until 03/28/2021, continue local care with [facility] Assessment: see above
--- NOTE | 2021-02-19 12:42 | MHC.CM.PN ---
Addendum entered by Chrissy Pena 02/19/21 12:50: The Pts HCP and nephew were both informed of discharge today. IMM provided to HCP via phone. She verbalized understanding of information. She is in agreement with the discharge today. Original Note: IMM 02/19/21 Female 70 DX Covid+ She is discharged today. She will return to [facility]. Discharge info has been sent to the facility. Transport has been booked [facility].
== END 2021-02-19 17:00 | disposition skilled nursing facility (03) | DRG 166 ==
LOC: HO.ED 10:17 → HO.EDOVER 15:21 → HO.IMC 23:58
PROVIDERS: Hospitalist; Student in an Organized Health Care Education/Training Program; Admitting Provider Internal Medicine; Emergency Provider Emergency Medicine; PCP Internal Medicine; Visit Provider Internal Medicine
DX: U07.1 COVID-19 (principal); L89.613 Pressure ulcer of right heel, stage 3; J12.82 Pneumonia due to coronavirus disease 2019; J96.01 Acute respiratory failure with hypoxia; G93.41 Metabolic encephalopathy; F11.20 Opioid dependence, uncomplicated; L03.115 Cellulitis of right lower limb; F10.97 Alcohol use, unspecified with alcohol-induced persisting dementia; I10 Essential (primary) hypertension; E03.9 Hypothyroidism, unspecified; Z86.711 Personal history of pulmonary embolism; Z79.01 Long term (current) use of anticoagulants; Z79.890 Hormone replacement therapy; Z79.899 Other long term (current) drug therapy
CPT/HCPCS: 36415; 36600; 71045; 80048; 80053; 80076; 80202; 82550; 82728; 82803; 82947; 83605; 83615; 83690; 83735; 83880; 84145; 84484; 85025; 85027; 85379; 85610; 85652; 85730; 86140; 87040; 87077; 87147; 87186; 87205; 87635; 93005; 94640; 94660; 96374; 96375; 99285; 99497; J0692; J1100; J1940; J2920; J3370

== ENCOUNTER → 2021-03-05 09:12 | Outpatient (BNVA) | payer MEDICARE, MEDICAID, SELFPAY | PROVIDERS: PCP Internal Medicine; Visit Provider Surgery Vascular Surgery | DX: I73.9 Peripheral vascular disease, unspecified (principal); Z87.891 Personal history of nicotine dependence | CPT/HCPCS: 99202 ==

== ENCOUNTER 2021-03-12 08:41 | Observation (INO) | payer MEDICARE, MEDICAID, SELFPAY ==
--- NOTE | ~2021-03-12 | CT_ITS ---
EXAMINATION: CT HEAD WITHOUT CONTRAST (STROKE PROTOCOL) CLINICAL INFORMATION: Stroke protocol. Altered mental status. COMPARISON: None TECHNIQUE: Contiguous axial imaging was performed from the skull base to vertex without intravenous administration of contrast. Exam is limited due to motion artifact. This CT examination was performed using dose optimization techniques as appropriate, variously including the following: *Automated exposure control *Adjustment of mA and/or kV according to patient size (this includes techniques or standardized protocols for targeted exams where dose is matched to indication/reason for exam; i.e. extremities or head) *Use of iterative reconstruction technique DLP: 680 mGy-cm FINDINGS: There is no intracranial hemorrhage, hematoma, or extra-axial fluid collection. The ventricles are normal in size. There is no hydrocephalus, edema, or mass effect. There is nonspecific periventricular white matter disease. There is no acute infarct or mass lesion. The calvarium appears intact. There is no pneumocephalus or orbital emphysema. There is mild membranous soft tissue thickening seen in the left frontal and bilateral ethmoid sinuses. The visualized sinuses and middle ears and mastoid air cells are otherwise clear. There are no air-fluid levels. CT/CT head for stroke IMPRESSION: Limited exam due to motion artifact. Nonspecific periventricular white matter disease. Otherwise unremarkable exam. This critical result was discussed with Dr. Sutton at 8:58 AM hours on 03/12/2021. It was ascertained that the content and urgency of the report was understood at the time of direct communication.
--- NOTE | ~2021-03-12 | XR_ITS ---
EXAMINATION: XR CHEST CLINICAL INFORMATION: Chest pain COMPARISON: Previous chest x-ray most recent January 2021 TECHNIQUE: Frontal view of the chest was obtained. FINDINGS: The lung volumes are low. There are increased perihilar markings, question related to low lung volumes. The lungs are otherwise clear. There is improved aeration at the left lower lobe. There is elevation of the right hemidiaphragm. The cardiac and mediastinal contours are stable. There is blunting at the right lateral costophrenic angle again questionable for a small right pleural effusion. There is no left pleural effusion. There is no pneumothorax. There are degenerative changes of the spine. XR/XR chest 1V IMPRESSION: Low lung volumes. Improved aeration at the left lung base compared to January 2021 exam. Question small right effusion.
--- NOTE | 2021-03-12 08:46 | ECG_ITS ---
Test Reason : stroke Blood Pressure : / mmHG Vent. Rate : 079 BPM Atrial Rate : 079 BPM P-R Int : 136 ms QRS Dur : 098 ms QT Int : 408 ms P-R-T Axes : 007 -38 008 degrees QTc Int : 467 ms Normal sinus rhythm Left axis deviation Nonspecific T wave abnormality Abnormal ECG When compared with ECG of 30-JAN-2021 08:58, No significant change was found Referred By: Kb Sutton Electronically Signed By:Thang Mckeon
[2021-03-12 08:57] VITALS: BP 111/71; BP 166/124; PULSE 82; PULSE 92; RESP 14; TEMP 37.9; O2SAT 95; BMI 20.3
--- NOTE | 2021-03-12 10:01 | ED.AMS ---
HPI - Altered Mental Status General Chief Complaint: Altered Mental Status Stated Complaint: STROKE ALERT,?LKW Time Seen by Provider: 03/12/21 08:45 Source: EMS Mode of arrival: EMS History of Present Illness HPI narrative: this is a 70 years old female sent by the retirement for evaluation because decreased mental status, she lethargic but easily arousable, she is anticoagulated with Eliquis she has history of cellulitis of the lower extremity she is not ambulatory at baseline, she has a history of opioid abuse disorder, alcohol abuse history of VTE MD complaint: altered mental status Onset (ago): day(s) (1) Timing confirmed by: other ([place] resident) Severity: similar to previous episodes Consistency of symptoms: constant Context: history of similar presentation Associated symptoms: denies other symptoms Related Data Home Medications Medication Instructions Recorded Confirmed albuterol sulfate 90 mcg/actuation 2 puff INHALATION Q4-6H PRN 01/30/21 03/12/21 aerosol inhaler alprazolam 0.5 mg tablet 0.5 mg PO Q8H PRN 01/30/21 03/12/21 aluminum-mag hydroxide-simethicone 30 ml PO Q4H PRN 01/30/21 03/12/21 200 mg-200 mg-20 mg/5 mL oral susp apixaban 5 mg tablet 5 mg PO BID 01/30/21 03/12/21 buspirone 5 mg tablet 5 mg PO TID 01/30/21 03/12/21 collagenase clostridium histo. 250 1 appl TOPICAL BEDTIME 01/30/21 03/12/21 unit/gram topical ointment (Santyl) duloxetine 60 mg capsule,delayed 60 mg PO DAILY 01/30/21 03/12/21 release gabapentin 100 mg capsule 500 mg PO TID 01/30/21 03/12/21 lamotrigine 100 mg tablet 100 mg PO BEDTIME 01/30/21 03/12/21 levothyroxine 50 mcg tablet 50 mcg PO DAILY@0600 01/30/21 03/12/21 lisinopril 5 mg tablet 2.5 mg PO DAILY 01/30/21 03/12/21 methadone 10 mg tablet 10 mg PO BID 01/30/21 03/12/21 methadone 10 mg tablet 10 mg PO DAILY PRN 01/30/21 03/12/21 mirtazapine 15 mg tablet (Remeron) 15 mg PO BEDTIME 01/30/21 03/12/21 oxycodone 5 mg tablet 5 mg PO Q6H PRN 01/30/21 03/12/21 polyethylene glycol 3350 17 gram 17 g PO DAILY 01/30/21 03/12/21 oral powder packet (Miralax) risperidone 2 mg tablet 2 mg PO BID 01/30/21 03/12/21 sennosides 8.6 mg tablet (senna) 17.2 mg PO DAILY 01/30/21 03/12/21 tiotropium bromide 2.5 2 puff INHALATION DAILY 01/30/21 03/12/21 mcg/actuation mist for inhalation (Spiriva Respimat) ascorbic acid (vitamin C) 500 mg 500 mg PO DAILY 03/12/21 03/12/21 tablet zinc sulfate 220 mg capsule 220 mg PO DAILY 03/12/21 03/12/21 Previous Rx's Medication Instructions Recorded doxycycline hyclate 100 mg tablet 100 mg PO Q12H 38 Days #0 tab 02/19/21 Allergies Allergy/AdvReac Type Severity Reaction Status Date / Time shellfish derived Allergy Unknown Verified 03/12/21 09:14 strawberry Allergy Unknown Verified 03/12/21 09:15 Sulfa (Sulfonamide Allergy Unknown Verified 03/12/21 09:15 Antibiotics) Review of Systems Review of Systems: Yes all other systems are reviewed and are negative PMFSH Past Medical History Medical History Alcoholism Falls Opiate dependence Pulmonary embolus Social History Social History Household Members: Other Housing: Care Home Do you presently have visiting nurse or other home services: No Unable to assess alcohol history related to: Unable to respond and Unknown Patient Tobacco Use Status: Former Tobacco user Tobacco use type: Cigarette Advance Directives: Yes Advance Directives on File: Yes Advance Directives Date on File: 01/30/21 service: No Current occupational status: retired Physical Exam Vital Signs: Vital Signs: Last Vital Signs Temp 99 F 03/12/21 13:48 Pulse 74 03/12/21 13:48 Resp 10 L 03/12/21 14:34 BP 90/53 L 03/12/21 14:34 Pulse Ox 100 03/12/21 14:34 Oxygen Flow Rate 3 03/12/21 08:57 BMI result Body Mass Index 20.3 Const: General: cooperative and no acute distress Nutritional Appearance: average body habitus Orientation/consciousness: patient oriented x3 HENMT: Head: Yes normal to inspection Face and sinus: Yes normal facial exam Mouth: Normal oral and palatal mucosa present Throat: Yes posterior oropharynx normal Neck: Neck: Yes normal visual inspection Chest: Chest palpation & inspection: normal inspection of the chest Resp: Effort & Inspection: normal respiratory effort Auscultation: clear to auscultation bilaterally Cardio: Jugular venous distension: no JVD Rate: regular rate Rhythm: regular rhythm GI: Inspection: Yes normal to inspection Palpation (GI): Soft to palpation, nontender and no guarding Skin: General skin exam: elasticity normal and turgor normal Neuro: General: patient oriented x3 Course Course Course Narrative: head CT is negative no bleed, she has a normal white count she has a normal UA, she has no neuro clinically, on the blood work she has an elevated sodium 149, we are going to give out normal saline, I spoke with the retirement with the bindery production manager Yoko I also recommended to hold the methadone , oxycodone, Remeron, risperidone,Her lethargy could be related to that as well. Reevaluation(s) Reevaluation #1: Remain lethrgic despite IV fluids hypotonic at this time will admit the pt for obs spoke with dr Thomas MDM - Altered Mental Status Lab Data Result diagrams: 03/12/21 10:39 03/12/21 10:39 Labs: Lab Results 03/12/21 03/12/21 03/12/21 Range/Units 10:39 10:39 10:39 WBC 6.5 (4.8-10.8) X10*3/uL RBC 3.74 L (4.20-5.50) X10*6/uL Hgb 10.0 L (12.0-16.0) g/dl Hct 34.8 L (37.0-47.0) % MCV 93.0 (80.0-98.0) fL MCH 26.7 L (27.0-33.0) pg MCHC 28.7 L (31.0-35.0) g/dl RDW 19.9 H (11.0-16.0) % Plt Count 299 D (160-400) X10*3/uL MPV 8.6 L (9.4-12.3) fL Immature Gran % (Auto) 0.3 (0.0-0.4) % Neut % (Auto) 69.6 (45-73) % Lymph % (Auto) 18.1 L (20-40) % Esmeralda % (Auto) 9.7 (2-11) % Eos % (Auto) 1.5 (0-4) % Baso % (Auto) 0.8 (0-2) % Lymph # (Auto) 1.2 (1.2-4.9) X10*3/uL Esmeralda # (Auto) 0.6 (0.1-1.2) X10*3/uL Eos # (Auto) 0.1 (0.0-0.4) X10*3/uL Baso # (Auto) 0.1 (0.0-0.2) X10*3/uL Abs Immat Gran (auto) 0.02 (0.00-0.03) X10*3/uL Absolute Neuts (auto) 4.5 (2.0-8.3) x10*3/uL Absolute Nucleated RBC 0.000 (0.0-0.012) X10*3/uL Nucleated RBC % (auto) 0.0 (0.0-0.2) /100WBC PT (9.9-13.0) SEC INR (0.9-1.1) VBG pH (7.32-7.43) VBG pCO2 mmHg VBG pO2 mmHg VBG HCO3 (22-26) mmol/L VBG O2 Saturation % VBG Base Excess mmol/L Sodium 149 H (135-145) mmol/L Potassium 4.1 (3.3-5.1) mmol/L Chloride 104 (96-108) mmol/L Carbon Dioxide 38 H (22-29) mmol/L Anion Gap 11 L (12-20) BUN 16 (9-16) mg/dL Creatinine 0.64 (0.5-1.4) mg/dL Estim Creat Clear Calc 68.3 Estimated GFR > 60 Random Glucose 95 (60-115) mg/dL Calcium 9.1 (8.4-10.2) mg/dL Total Bilirubin 0.4 (0.0-1.0) mg/dL AST 15 (5-31) U/L ALT 12 (0-31) U/L Alkaline Phosphatase 94 D (39-117) U/L Troponin I High Sens 15.8 D (<3.5-17.0) ng/L Total Protein 5.3 L (6.5-8.0) g/dL Albumin 2.8 L (3.5-5.0) g/dL Urine Color Urine Appearance Urine pH (5.0-8.0) Ur Specific [place] (1.005-1.025) Urine Protein (NEG-TRACE) MG/DL Urine Glucose (UA) (NEG) MG/DL Urine Ketones (NEG) MG/DL Urine Blood (NEG) Urine Nitrite (NEG) Ur Leukocyte Esterase (NEG) Urine RBC (0) /HPF Urine WBC (0-4) /HPF Ur Squamous Epith Cells /LPF Calcium Oxalate Crystal /LPF Urine Bacteria /LPF COVID-19 (SILVIA) (Negative) COVID-19 Clin Com 03/12/21 03/12/21 03/12/21 Range/Units 10:39 10:39 10:41 WBC (4.8-10.8) X10*3/uL RBC (4.20-5.50) X10*6/uL Hgb (12.0-16.0) g/dl Hct (37.0-47.0) % MCV (80.0-98.0) fL MCH (27.0-33.0) pg MCHC (31.0-35.0) g/dl RDW (11.0-16.0) % Plt Count (160-400) X10*3/uL MPV (9.4-12.3) fL Immature Gran % (Auto) (0.0-0.4) % Neut % (Auto) (45-73) % Lymph % (Auto) (20-40) % Esmeralda % (Auto) (2-11) % Eos % (Auto) (0-4) % Baso % (Auto) (0-2) % Lymph # (Auto) (1.2-4.9) X10*3/uL Esmeralda # (Auto) (0.1-1.2) X10*3/uL Eos # (Auto) (0.0-0.4) X10*3/uL Baso # (Auto) (0.0-0.2) X10*3/uL Abs Immat Gran (auto) (0.00-0.03) X10*3/uL Absolute Neuts (auto) (2.0-8.3) x10*3/uL Absolute Nucleated RBC (0.0-0.012) X10*3/uL Nucleated RBC % (auto) (0.0-0.2) /100WBC PT 16.1 H (9.9-13.0) SEC INR 1.4 H (0.9-1.1) VBG pH 7.41 (7.32-7.43) VBG pCO2 61 mmHg VBG pO2 34 mmHg VBG HCO3 39 H (22-26) mmol/L VBG O2 Saturation 46.0 % VBG Base Excess 12.9 mmol/L Sodium (135-145) mmol/L Potassium (3.3-5.1) mmol/L Chloride (96-108) mmol/L Carbon Dioxide (22-29) mmol/L Anion Gap (12-20) BUN (9-16) mg/dL Creatinine (0.5-1.4) mg/dL Estim Creat Clear Calc Estimated GFR Random Glucose (60-115) mg/dL Calcium (8.4-10.2) mg/dL Total Bilirubin (0.0-1.0) mg/dL AST (5-31) U/L ALT (0-31) U/L Alkaline Phosphatase (39-117) U/L Troponin I High Sens (<3.5-17.0) ng/L Total Protein (6.5-8.0) g/dL Albumin (3.5-5.0) g/dL Urine Color YELLOW Urine Appearance CLEAR Urine pH 6.0 (5.0-8.0) Ur Specific [place] 1.025 (1.005-1.025) Urine Protein NEG (NEG-TRACE) MG/DL Urine Glucose (UA) NEG (NEG) MG/DL Urine Ketones NEG (NEG) MG/DL Urine Blood NEG (NEG) Urine Nitrite NEG (NEG) Ur Leukocyte Esterase NEG (NEG) Urine RBC 5-9 H (0) /HPF Urine WBC 0-2 (0-4) /HPF Ur Squamous Epith Cells 1+ /LPF Calcium Oxalate Crystal 1+ /LPF Urine Bacteria NONE /LPF COVID-19 (SILVIA) (Negative) COVID-19 Clin Com 03/12/21 Range/Units 13:49 WBC (4.8-10.8) X10*3/uL RBC (4.20-5.50) X10*6/uL Hgb (12.0-16.0) g/dl Hct (37.0-47.0) % MCV (80.0-98.0) fL MCH (27.0-33.0) pg MCHC (31.0-35.0) g/dl RDW (11.0-16.0) % Plt Count (160-400) X10*3/uL MPV (9.4-12.3) fL Immature Gran % (Auto) (0.0-0.4) % Neut % (Auto) (45-73) % Lymph % (Auto) (20-40) % Esmeralda % (Auto) (2-11) % Eos % (Auto) (0-4) % Baso % (Auto) (0-2) % Lymph # (Auto) (1.2-4.9) X10*3/uL Esmer[place]da # (Auto) (0.1-1.2) X10*3/uL Eos # (Auto) (0.0-0.4) X10*3/uL Baso # (Auto) (0.0-0.2) X10*3/uL Abs Immat Gran (auto) (0.00-0.03) X10*3/uL Absolute Neuts (auto) (2.0-8.3) x10*3/uL Absolute Nucleated RBC (0.0-0.012) X10*3/uL Nucleated RBC % (auto) (0.0-0.2) /100WBC PT (9.9-13.0) SEC INR (0.9-1.1) VBG pH (7.32-7.43) VBG pCO2 mmHg VBG pO2 mmHg VBG HCO3 (22-26) mmol/L VBG O2 Saturation % VBG Base Excess mmol/L Sodium (135-145) mmol/L Potassium (3.3-5.1) mmol/L Chloride (96-108) mmol/L Carbon Dioxide (22-29) mmol/L Anion Gap (12-20) BUN (9-16) mg/dL Creatinine (0.5-1.4) mg/dL Estim Creat Clear Calc Estimated GFR Random Glucose (60-115) mg/dL Calcium (8.4-10.2) mg/dL Total Bilirubin (0.0-1.0) mg/dL AST (5-31) U/L ALT (0-31) U/L Alkaline Phosphatase (39-117) U/L Troponin I High Sens (<3.5-17.0) ng/L Total Protein (6.5-8.0) g/dL Albumin (3.5-5.0) g/dL Urine Color Urine Appearance Urine pH (5.0-8.0) Ur Specific [place] (1.005-1.025) Urine Protein (NEG-TRACE) MG/DL Urine Glucose (UA) (NEG) MG/DL Urine Ketones (NEG) MG/DL Urine Blood (NEG) Urine Nitrite (NEG) Ur Leukocyte Esterase (NEG) Urine RBC (0) /HPF Urine WBC (0-4) /HPF Ur Squamous Epith Cells /LPF Calcium Oxalate Crystal /LPF Urine Bacteria /LPF COVID-19 (SILVIA) Negative (Negative) COVID-19 Clin Com See Note Imaging Data Chest x-ray: Radiologist's impression: Previous chest x-ray most recent January 2021 TECHNIQUE: Frontal view of the chest was obtained. FINDINGS: The lung volumes are low. There are increased perihilar markings, question related to low lung volumes. The lungs are otherwise clear. There is improved aeration at the left lower lobe. There is elevation of the right hemidiaphragm. The cardiac and mediastinal contours are stable. There is blunting at the right lateral costophrenic angle again questionable for a small right pleural effusion. There is no left pleural effusion. There is no pneumothorax. There are degenerative changes of the spine. XR/XR chest 1V IMPRESSION: Low lung volumes. Improved aeration at the left lung base compared to January 2021 exam. Question small right effusion. ? Dictated By: Beth eMrino MD Signed By: <Electronically signed by Beth Merino MD in [place]> 03/12/21 0953 DD/ 0941 CT scan - head: Radiologist's impression: FINDINGS: There is no intracranial hemorrhage, hematoma, or extra-axial fluid collection. The ventricles are normal in size. There is no hydrocephalus, edema, or mass effect. There is nonspecific periventricular white matter disease. There is no acute infarct or mass lesion. The calvarium appears intact. There is no pneumocephalus or orbital emphysema. There is mild membranous soft tissue thickening seen in the left frontal and bilateral ethmoid sinuses. The visualized sinuses and middle ears and mastoid air cells are otherwise clear. There are no air-fluid levels. CT/CT head for stroke IMPRESSION: Limited exam due to motion artifact. Nonspecific periventricular white matter disease. Otherwise unremarkable exam. ? This critical result was discussed with Dr. Sutton at 8:58 AM hours on 03/12/2021. It was ascertained that the content and urgency of the report was understood at the time of direct communication. Dictated By: Beth Merino MD Signed By: <Electronically signed by Beth Merino MD in [place]> 03/12/21 1034 DD/ 0851 ECG Data ECG #1: ECG interpretation date: 03/12/21 Interpretation: NSR 79 no ischemic changes Discharge Plan Discharge Clinical Impression: Acute hypernatremia, Altered mental state, Polypharmacy Patient Disposition: Admitted As Inpatient
--- NOTE | 2021-03-12 10:24 | PC.NURSE ---
pt able to answer questions although confused at times. unable to assess fully secondary to not knowing pts baseline
[2021-03-12 10:41] VITALS: BP 111/66; PULSE 80; RESP 14; TEMP 37.9
[2021-03-12 10:45] LABS: MANUAL DIFF FLAG NO
[2021-03-12 10:46] LABS: Basophils Absolute Auto 0.1 X10*3/uL (0.0-0.2); Basophils Percent Auto 0.8 % (0-2); Eosinophils Absolute Auto 0.1 X10*3/uL (0.0-0.4); Eosinophils Percent Auto 1.5 % (0-4); Hematocrit 34.8 % (37.0-47.0); Imm Gran Abs Auto 0.02 X10*3/uL (0.00-0.03); Imm Gran Pct Auto 0.3 % (0.0-0.4); Lymphocytes Absolute Auto 1.2 X10*3/uL (1.2-4.9); Lymphocytes Percent Auto 18.1 % (20-40); Mean Corpuscular HGB Conc 28.7 g/dl (31.0-35.0); Mean Corpuscular Hemoglobin 26.7 pg (27.0-33.0); Mean Platelet Volume 8.6 fL (9.4-12.3); Monocytes Absolute Auto 0.6 X10*3/uL (0.1-1.2); Monocytes Percent Auto 9.7 % (2-11); Neutrophils Absolute Auto 4.5 x10*3/uL (2.0-8.3); Neutrophils Percent Auto 69.6 % (45-73); Platelet Count 299 X10*3/uL (160-400); Red Blood Count 3.74 X10*6/uL (4.20-5.50); Red Cell Distribution Width 19.9 % (11.0-16.0); White Blood Count 6.5 X10*3/uL (4.8-10.8)
[2021-03-12 10:46] LABS: Venous Blood Gas Refer to POC result
[2021-03-12 10:47] LABS: VBG Base Excess 12.9 mmol/L; VBG HCO3 39 mmol/L (22-26); VBG pCO2 61 mmHg; VBG pH 7.41 (7.32-7.43); VBG pO2 34 mmHg
[2021-03-12 10:52] LABS: Appearance Urine CLEAR; Color Urine YELLOW; Glucose Urine UA NEG (NEG); Leukocyte Esterase Urine NEG (NEG); Nitrite Urine NEG (NEG); Specific Gravity - Urine 1.025 (1.005-1.025); Urine Blood NEG (NEG); Urine Ketones NEG (NEG); Urine Protein NEG (NEG-TRACE)
[2021-03-12 10:58] LABS: INTERNATIONAL NORM RATIO 1.4 (0.9-1.1); Prothrombin Time 16.1 SEC (9.9-13.0)
[2021-03-12 11:00] LABS: Alanine Aminotransferase 12 U/L (0-31); Albumin Level 2.8 g/dL (3.5-5.0); Alkaline Phosphatase 94 U/L (39-117); Anion Gap 11 (12-20); Aspartate Amino Transferase 15 U/L (5-31); Bilirubin Total 0.4 mg/dL (0.0-1.0); Blood Urea Nitrogen 16 mg/dL (9-16); Calcium 9.1 mg/dL (8.4-10.2); Carbon Dioxide 38 mmol/L (22-29); Chloride 104 mmol/L (96-108); Creatinine Clr Calc Pharmacy 68.3; Estimated Glomerular Filt Rate > 60; Glucose Random 95 mg/dL (60-115); Potassium 4.1 mmol/L (3.3-5.1); Sodium 149 mmol/L (135-145); Total Protein 5.3 g/dL (6.5-8.0)
[2021-03-12 11:06] LABS: Troponin-I High Sensitivity 15.8 ng/L (<3.5-17.0)
[2021-03-12 11:19] LABS: Squamous Epithelial Cell Urine 1+ /LPF; WBC Urine 0-2 /HPF (0-4)
[2021-03-12 11:21] LABS: Calcium Oxalate Crystals Urine 1+ /LPF
[2021-03-12] MEDS: Dextrose 5 % and 0.45 % NaCl 1,000 ML 500 ML IVCONT (11:32)
[2021-03-12] MEDS: Acetaminophen 325 MG TABLET 650 MG PO (11:33)
--- NOTE | 2021-03-12 13:39 | PHA.MEDREC ---
Pharmacy Consult ? Medication Reconciliation Pharmacy has completed the medication reconciliation. Patient came from [facility]. Called to confirm last dose of methadone 10 mg was given yesterday night. Lizbeth Schmidt, BlossomD
[2021-03-12 13:48] VITALS: BP 102/64; PULSE 74; RESP 16; TEMP 37.2; O2SAT 95
--- NOTE | 2021-03-12 14:17 | PM.IMHP ---
History of Present Illness Date of Service: 03/12/21 Chief Complaint: Lethargy 70-year-old female presented from custodial for lethargy. Patient was recently discharged from [facility] after prolong stay for COVID pneumonia, 1st test positive on 01/30/2021, discharged 02/19/2021, was sent to [facility] facility, on 03/07/2021 patient fell and had a dislocation of her right hip, she was seen at [facility] for reduction, at that time she tested positive again for COVID. [facility] noted that patient had been increasingly lethargic to the point that she was brought to the ED today under stroke alert. In ED CT head was negative, patient no focal deficits was just very lethargic. Labs with hypernatremia of 149. Repeat COVID negative. Review of Systems Review of Systems: Constitutional: Denies fever, denies Chills Eyes: denies blurry vision ENT: denies sore throat CVS: denies chest pain Respiratory: Denies dyspnea GI: no abdominal pain : denies dysuria MSK: denies neck pain Skin: denies rash Neuro: denies specific motor weakness Psych: denies suicidal ideation Endocrine: denies heat/cold intolerance Hematologic: denies easy bleeding Allergy: denies hives [facility] Medical History Alcoholism Falls Opiate dependence Pulmonary embolus Pertinent family history: Patient is unaware Social History Household Members: Other Housing: [facility]iary Do you presently have visiting nurse or other home services: No Unable to assess alcohol history related to: Unable to respond and Unknown Patient Tobacco Use Status: Former Tobacco user Tobacco use type: Cigarette Advance Directives: Yes Advance Directives on File: Yes Advance Directives Date on File: 01/30/21 service: No Current occupational status: retired Meds Allergies Allergy/AdvReac Type Severity Reaction Status Date / Time shellfish derived Allergy Unknown Verified 03/12/21 09:14 strawberry Allergy Unknown Verified 03/12/21 09:15 Sulfa (Sulfonamide Allergy Unknown Verified 03/12/21 09:15 Antibiotics) Active Medications: Current Medications Albuterol Sulfate (Albuterol Sulfate 90 Mcg 8 Gm Inhaler) 2 puff INHALE Q4-6H PRN PRN Reason: Wheezing Alprazolam (Alprazolam 0.5 Mg Tablet) 0.5 mg PO Q8H PRN PRN Reason: Anxiety Apixaban (Apixaban 5 Mg Tablet) 5 mg PO BID [facility] Ascorbic Acid (Ascorbic Acid 500 Mg Tablet) 500 mg PO DAILY [facility] Buspirone HCl (Buspirone Hcl 5 Mg Tablet) 5 mg PO TID [facility] Collagenase (Collagenase Clostridium Hist. 30 Gm Tube) 1 appl TOPICAL BEDTIME CHASE; Protocol Doxycycline Hyclate (Doxycycline Hyclate 100 Mg Tablet) 100 mg PO Q12H [facility] Duloxetine HCl (Duloxetine Hcl 60 Mg Capsule.Dr) 60 mg PO DAILY [facility] Gabapentin (Gabapentin 100 Mg Capsule) 500 mg PO TID [facility] Lamotrigine (Lamotrigine 100 Mg Tablet) 100 mg PO BEDTIME [facility] Levothyroxine Sodium (Levothyroxine Sodium 50 Mcg Tablet) 50 mcg PO DAILY@0600 [facility] Lisinopril (Lisinopril 2.5 Mg Tablet) 2.5 mg PO DAILY [facility]; Protocol Methadone HCl (Methadone Hcl 10 Mg Tablet) 10 mg PO DAILY PRN PRN Reason: OPIOID ADDICATION Methadone HCl (Methadone Hcl 10 Mg Tablet) 10 mg PO BID [facility] Non-Formulary Medication (Zinc Sulfate) 220 mg PO DAILY [facility] Non-Formulary Medication (Tiotropium [place] [Spiriva Respimat]) 2 puff INHALE DAILY [facility] Pharmacy Consult (Consult Rx Perform Med Rec) 1 each MISCELLANE ONCE PRN PRN Reason: Consult order Polyethylene Glycol (Polyethylene Glycol 3350 17 Gm Powd.Pack) 17 gm PO DAILY [facility] Risperidone (Risperidone 2 Mg Tablet) 2 mg PO BID [facility] Senna (Sennosides 8.6 Mg Tablet) 17.2 mg PO DAILY [facility] Home Medications Medication Instructions Recorded Confirmed Last Taken Type albuterol sulfate 90 mcg/actuation 2 puff INHALATION Q4-6H PRN 01/30/21 03/12/21 Unknown History aerosol inhaler alprazolam 0.5 mg tablet 0.5 mg PO Q8H PRN 01/30/21 03/12/21 Unknown History aluminum-mag hydroxide-simethicone 30 ml PO Q4H PRN 01/30/21 03/12/21 Unknown History 200 mg-200 mg-20 mg/5 mL oral susp apixaban 5 mg tablet 5 mg PO BID 01/30/21 03/12/21 Unknown History buspirone 5 mg tablet 5 mg PO TID 01/30/21 03/12/21 Unknown History collagenase clostridium histo. 250 1 appl TOPICAL BEDTIME 01/30/21 03/12/21 Unknown History unit/gram topical ointment (Santyl) duloxetine 60 mg capsule,delayed 60 mg PO DAILY 01/30/21 03/12/21 Unknown History release gabapentin 100 mg capsule 500 mg PO TID 01/30/21 03/12/21 Unknown History lamotrigine 100 mg tablet 100 mg PO BEDTIME 01/30/21 03/12/21 Unknown History levothyroxine 50 mcg tablet 50 mcg PO DAILY@0600 01/30/21 03/12/21 Unknown History lisinopril 5 mg tablet 2.5 mg PO DAILY 01/30/21 03/12/21 Unknown History methadone 10 mg tablet 10 mg PO BID 01/30/21 03/12/21 03/11/21 History methadone 10 mg tablet 10 mg PO DAILY PRN 01/30/21 03/12/21 Unknown History mirtazapine 15 mg tablet (Remeron) 15 mg PO BEDTIME 01/30/21 03/12/21 Unknown History oxycodone 5 mg tablet 5 mg PO Q6H PRN 01/30/21 03/12/21 Unknown History polyethylene glycol 3350 17 gram 17 g PO DAILY 01/30/21 03/12/21 Unknown History oral powder packet (Miralax) risperidone 2 mg tablet 2 mg PO BID 01/30/21 03/12/21 Unknown History sennosides 8.6 mg tablet (senna) 17.2 mg PO DAILY 01/30/21 03/12/21 Unknown History tiotropium bromide 2.5 2 puff INHALATION DAILY 01/30/21 03/12/21 Unknown History mcg/actuation mist for inhalation (Spiriva Respimat) ascorbic acid (vitamin C) 500 mg 500 mg PO DAILY 03/12/21 03/12/21 Unknown History tablet zinc sulfate 220 mg capsule 220 mg PO DAILY 03/12/21 03/12/21 Unknown History Physical Exam Vital Signs and Narrative: Vital Signs: Last Vital Signs Temp 99 F 03/12/21 13:48 Pulse 74 03/12/21 13:48 Resp 16 03/12/21 13:48 BP 102/64 03/12/21 13:48 Pulse Ox 95 03/12/21 13:48 Oxygen Flow Rate 3 03/12/21 08:57 BMI result Body Mass Index 20.3 General: no acute distress HEENT: atraumatic Neck: normal to visual inspection CVS: S1, S2, RRR Resp: CTA bilateral Chest: non tender GI: soft, non tender, non distended : no CVA tenderness Skin: Right heel ulcer Extremities: no edema Neuro: Lethargic but arousable, oriented x2, Psych: cooperative, poor insight Results Labs CBC and Chem 7: 03/12/21 10:39 03/12/21 10:39 Labs: Laboratory Results - last 24 hr 03/12/21 03/12/21 03/12/21 10:39 10:39 10:39 MCV 93.0 MCH 26.7 L MCHC 28.7 L RDW 19.9 H Plt Count 299 D MPV 8.6 L Immature Gran % (Auto) 0.3 Neut % (Auto) 69.6 Lymph % (Auto) 18.1 L [place] % (Auto) 9.7 Eos % (Auto) 1.5 Baso % (Auto) 0.8 Lymph # (Auto) 1.2 [place] # (Auto) 0.6 Eos # (Auto) 0.1 Baso # (Auto) 0.1 Abs Immat Gran (auto) 0.02 Absolute Neuts (auto) 4.5 Absolute Nucleated RBC 0.000 Nucleated RBC % (auto) 0.0 PT INR VBG pH VBG pCO2 VBG pO2 VBG HCO3 VBG O2 Saturation VBG Base Excess Anion Gap 11 L Estim Creat Clear Calc 68.3 Estimated GFR > 60 Random Glucose 95 Calcium 9.1 Total Bilirubin 0.4 AST 15 ALT 12 Alkaline Phosphatase 94 D Troponin I High Sens 15.8 D Total Protein 5.3 L Albumin 2.8 L Urine Color Urine Appearance Urine pH Ur Specific [place] Urine Protein Urine Glucose (UA) Urine Ketones Urine Blood Urine Nitrite Ur Leukocyte Esterase Urine RBC Urine WBC Ur Squamous Epith Cells Calcium Oxalate Crystal Urine Bacteria 03/12/21 03/12/21 03/12/21 10:39 10:39 10:41 MCV MCH MCHC RDW Plt Count MPV Immature Gran % (Auto) Neut % (Auto) Lymph % (Auto) [place] % (Auto) Eos % (Auto) Baso % (Auto) Lymph # (Auto) [place] # (Auto) Eos # (Auto) Baso # (Auto) Abs Immat Gran (auto) Absolute Neuts (auto) Absolute Nucleated RBC Nucleated RBC % (auto) PT 16.1 H INR 1.4 H VBG pH 7.41 VBG pCO2 61 VBG pO2 34 VBG HCO3 39 H VBG O2 Saturation 46.0 VBG Base Excess 12.9 Anion Gap Estim Creat Clear Calc Estimated GFR Random Glucose Calcium Total Bilirubin AST ALT Alkaline Phosphatase Troponin I High Sens Total Protein Albumin Urine Color YELLOW Urine Appearance CLEAR Urine pH 6.0 Ur Specific [place] 1.025 Urine Protein NEG Urine Glucose (UA) NEG Urine Ketones NEG Urine Blood NEG Urine Nitrite NEG Ur Leukocyte Esterase NEG Urine RBC 5-9 H Urine WBC 0-2 Ur Squamous Epith Cells 1+ Calcium Oxalate Crystal 1+ Urine Bacteria NONE Imaging Radiologist's Impressions: Impressions Head CT 03/12/21 08:51 IMPRESSION: Limited exam due to motion artifact. Nonspecific periventricular white matter disease. Otherwise unremarkable exam. This critical result was discussed with Dr. Sutton at 8:58 AM hours on 03/12/2021. It was ascertained that the content and urgency of the report was understood at the time of direct communication. Chest X-Ray 03/12/21 09:41 IMPRESSION: Low lung volumes. Improved aeration at the left lung base compared to January 2021 exam. Question small right effusion. Assessment and Plan (1) Acute hypernatremia: Status: Acute 70F presented with lethargy, found to have hypernatremia Toxic Metabolic encephalopathy, possibly due to polypharmacy versus COVID complicated by hypernatremia D5W Hold oxycodone, Remeron Monitor COVID positive 03/07/2021 Currently negative Question if this was viral shedding from COVID infection in January versus reinfection with omicron that is now cleared Right heel osteomyelitis Continue doxy until 03/29/2021 History of pulmonary embolism Eliquis History of opiate dependence Methadone Hypothyroid Synthroid Full code Quality Stroke Does the patient have a stroke diagnosis?: No VTE Prior VTE?: Yes VTE Risk Level:: Medical - moderate - high VTE Device Contraindication: Treatment Not Indicated VTE Drug Contraindication: N/A - Med Ordered
[2021-03-12 14:18] LABS: IDNOW Serial# 9DD0AD1C
[2021-03-12 14:19] LABS: COVID-19 Test Negative (Negative)
[2021-03-12] MEDS: Dextrose 5 % 1,000 ML 100 ML IVCONT (14:33)
[2021-03-12 14:34] VITALS: BP 90/53; RESP 10; O2SAT 100
[2021-03-12] MEDS: Gabapentin 100 MG CAPSULE 500 MG PO ×2 (16:37→20:34)
[2021-03-12] MEDS: 0.9 % Sodium Chloride Flush 3 ML SYRINGE IVFLUSH (16:39)
[2021-03-12] MEDS: busPIRone HCl 5 MG TABLET PO ×2 (17:29→20:36)
[2021-03-12 18:05] VITALS: BP 97/63; PULSE 70; RESP 14; TEMP 37.2; O2SAT 99
[2021-03-12] MEDS: methADONE HCl 20 MG/2 ML ORAL.CONC 10 MG PO (20:33)
[2021-03-12] MEDS: lamoTRIgine 100 MG TABLET PO (20:35)
[2021-03-12] MEDS: risperiDONE 2 MG TABLET PO (20:35)
[2021-03-12] MEDS: Apixaban 5 MG TABLET PO (20:37)
--- NOTE | 2021-03-12 20:39 | PC.NURSE ---
This RN discussing Covid/isolation status with Hospitalist and Nursing Sup as pt was Covid+ 03/07 but is now negative. Per hospitalist to discuss isolation status with nursing loom fixer supervisor. Per nursing loom fixer supervisor, since pt has been symptomatic (fever) to treat as Covid+.
--- NOTE | 2021-03-13 00:02 | PC.NURSE ---
Spoke with patient's sister from [facility] who is her health care proxy. Claudia Stern . She would like updates on her sisters care.
[2021-03-13 01:06] VITALS: BP 98/55; PULSE 75; RESP 14; TEMP 37.1; O2SAT 97
[2021-03-13] MEDS: Dextrose 5 % 1,000 ML 100 ML IVCONT (02:04)
[2021-03-13 04:33] VITALS: BP 98/56; PULSE 64; RESP 13; O2SAT 95
[2021-03-13 06:27] LABS: Anion Gap 8 (12-20); Blood Urea Nitrogen 15 mg/dL (9-16); Calcium 8.4 mg/dL (8.4-10.2); Carbon Dioxide 37 mmol/L (22-29); Chloride 99 mmol/L (96-108); Creatinine Clr Calc Pharmacy 79.5; Estimated Glomerular Filt Rate > 60; Glucose Fasting 109 mg/dL (60-99); Potassium 3.5 mmol/L (3.3-5.1); Sodium 140 mmol/L (135-145)
[2021-03-13] MEDS: Levothyroxine Sodium 50 MCG TABLET PO (06:47)
[2021-03-13 06:52] LABS: Hematocrit 27.6 % (37.0-47.0); Hemoglobin 8.1 g/dl (12.0-16.0); Mean Corpuscular HGB Conc 29.3 g/dl (31.0-35.0); Mean Corpuscular Hemoglobin 27.1 pg (27.0-33.0); Mean Corpuscular Volume 92.3 fL (80.0-98.0); Mean Platelet Volume 9.2 fL (9.4-12.3); Platelet Count 259 X10*3/uL (160-400); Red Blood Count 2.99 X10*6/uL (4.20-5.50); Red Cell Distribution Width 19.3 % (11.0-16.0); White Blood Count 4.6 X10*3/uL (4.8-10.8)
[2021-03-13 09:18] VITALS: PULSE 72; RESP 15
[2021-03-13] MEDS: Sennosides 8.6 MG TABLET 17.2 MG PO (09:36)
[2021-03-13] MEDS: lisinopriL 2.5 MG TABLET PO (09:36)
[2021-03-13] MEDS: DULoxetine HCl 60 MG CAPSULE.DR PO (09:36)
[2021-03-13] MEDS: Apixaban 5 MG TABLET PO (09:36)
[2021-03-13] MEDS: Ascorbic Acid 500 MG TABLET PO (09:36)
[2021-03-13] MEDS: risperiDONE 2 MG TABLET PO (09:36)
[2021-03-13] MEDS: methADONE HCl 20 MG/2 ML ORAL.CONC 10 MG PO (09:36)
[2021-03-13] MEDS: 0.9 % Sodium Chloride Flush 3 ML SYRINGE IVFLUSH (09:37)
[2021-03-13] MEDS: Gabapentin 100 MG CAPSULE 500 MG PO (09:41)
[2021-03-13] MEDS: Zinc Sulfate 220 MG CAPSULE PO (09:41)
[2021-03-13] MEDS: busPIRone HCl 5 MG TABLET PO (09:41)
--- NOTE | 2021-03-13 09:43 | MHC.CM.PN ---
CM CONTACTED PTS HCP/SISTER, RODRIGUE LAROSE ([phone]) RODRIGUE CONFIRMS THE PT IS A LTC RESIDENT AT [facility] PT HAS BOTH A HCP AND MOLST ON FILE AND HER PCP IS SAMANTHA BUENO PT RECEIVED THE J&J VACCINE ON 08/29/20 PTS MEDICARE RIGHTS WERE REVIEWED WITH RODRIGUE WHO ASKED THAT A COPY BE EMAILED TO HER AT [email or web address] (SENT). A COPY WAS ALSO SENT TO [facility]. RODRIGUE WAS ALSO INFORMED THE PT IS CLEARED TO DC BACK TO THE SNF TODAY. SHE ASKS THAT SHE BE NOTIFIED WHEN PT IS ACTUALLY LEAVING THE HOSPITAL TO RETURN. CURRENT DC PLAN IS RETURN TO [facility] TODAY VIA BLS
--- NOTE | 2021-03-13 10:10 | PC.NURSE ---
pt alert, soiled with urine, pt changed over, pt has a right knee brace on, small open sore on the right inner coccyx area applied the pink cushion dressing and old dressing noticed on the pt's mid spine as well pt repositioned to her right sided.
--- NOTE | 2021-03-13 10:43 | P.DS_ITS ---
DS: Providers Provider Date of Service: 03/13/21 Date of admission: 03/12/21 14:16 Primary care physician: Cassi Da Silva MD DS: Diagnosis Discharge Diagnosis (1) Acute hypernatremia: Status: Acute DS: Summary Hospital Course Hospital Course: Patient was admitted for toxic metabolic encephalopathy due to polypharmacy +/- COVID complicated by hypernatremia. She tested positive for COVID on 03/07/2021, was negative on admission on 03/12/2021, her oxycodone and Remeron were held, she was started on D5W and sodium improved from 149 to 140. her mental status returned to baseline. At time of discharge patient is alert and oriented and eating independently. She will be discharged back to residential facility. Time Spent with Patient Time attestation: Total time spent providing and/or coordinating discharge services: Discharge coordination time: Greater than 30 minutes Quality: Stroke Does the patient have a stroke diagnosis?: No Physical Exam Vital Signs: Vital Signs: Last Vital Signs Temp 98.7 F 03/13/21 01:06 Pulse 72 03/13/21 09:18 Resp 15 03/13/21 09:18 BP 98/56 L 03/13/21 04:33 Pulse Ox 95 03/13/21 04:33 Oxygen Flow Rate 3 03/12/21 08:57 BMI result Body Mass Index 20.3 General: AO X 3, no acute distress Resp: CTA bilateral, no accessory muscles used CVS: S1,S2,RRR GI: soft, non tender, non distended Neuro: motor grossly intact, alert Psych: appropriate affect, appropriate insight DS: Data Data Completed and Pending Completed studies during hospitalization [Text1]: Procedures Assistance with Respiratory Ventilation, Less than 24 Consecutive Hours, Continuous Positive Airway Pressure (01/30/21) Excision of Right Foot Subcutaneous Tissue and Fascia, Open Approach (01/30/21) Labs on day of discharge: Laboratory Results - last 24 hr 03/12/21 03/12/21 03/12/21 10:39 10:39 10:39 WBC 6.5 RBC 3.74 L Hgb 10.0 L Hct 34.8 L MCV 93.0 MCH 26.7 L MCHC 28.7 L RDW 19.9 H Plt Count 299 D MPV 8.6 L Immature Gran % (Auto) 0.3 Neut % (Auto) 69.6 Lymph % (Auto) 18.1 L [place] % (Auto) 9.7 Eos % (Auto) 1.5 Baso % (Auto) 0.8 Lymph # (Auto) 1.2 [place] # (Auto) 0.6 Eos # (Auto) 0.1 Baso # (Auto) 0.1 Abs Immat Gran (auto) 0.02 Absolute Neuts (auto) 4.5 Absolute Nucleated RBC 0.000 Nucleated RBC % (auto) 0.0 PT INR VBG pH VBG pCO2 VBG pO2 VBG HCO3 VBG O2 Saturation VBG Base Excess Sodium 149 H Potassium 4.1 Chloride 104 Carbon Dioxide 38 H Anion Gap 11 L BUN 16 Creatinine 0.64 Estim Creat Clear Calc 68.3 Estimated GFR > 60 Random Glucose 95 Fasting Glucose Calcium 9.1 Total Bilirubin 0.4 AST 15 ALT 12 Alkaline Phosphatase 94 D Troponin I High Sens 15.8 D Total Protein 5.3 L Albumin 2.8 L Urine Color Urine Appearance Urine pH Ur Specific [place] Urine Protein Urine Glucose (UA) Urine Ketones Urine Blood Urine Nitrite Ur Leukocyte Esterase Urine RBC Urine WBC Ur Squamous Epith Cells Calcium Oxalate Crystal Urine Bacteria COVID-19 (SILVIA) COVID-19 Clin Com 03/12/21 03/12/21 03/12/21 10:39 10:39 10:41 WBC RBC Hgb Hct MCV MCH MCHC RDW Plt Count MPV Immature Gran % (Auto) Neut % (Auto) Lymph % (Auto) [place] % (Auto) Eos % (Auto) Baso % (Auto) Lymph # (Auto) [place] # (Auto) Eos # (Auto) Baso # (Auto) Abs Immat Gran (auto) Absolute Neuts (auto) Absolute Nucleated RBC Nucleated RBC % (auto) PT 16.1 H INR 1.4 H VBG pH 7.41 VBG pCO2 61 VBG pO2 34 VBG HCO3 39 H VBG O2 Saturation 46.0 VBG Base Excess 12.9 Sodium Potassium Chloride Carbon Dioxide Anion Gap BUN Creatinine Estim Creat Clear Calc Estimated GFR Random Glucose Fasting Glucose Calcium Total Bilirubin AST ALT Alkaline Phosphatase Troponin I High Sens Total Protein Albumin Urine Color YELLOW Urine Appearance CLEAR Urine pH 6.0 Ur Specific [place] 1.025 Urine Protein NEG Urine Glucose (UA) NEG Urine Ketones NEG Urine Blood NEG Urine Nitrite NEG Ur Leukocyte Esterase NEG Urine RBC 5-9 H Urine WBC 0-2 Ur Squamous Epith Cells 1+ Calcium Oxalate Crystal 1+ Urine Bacteria NONE COVID-19 (SILVIA) COVID-19 Clin Com 03/12/21 03/13/21 03/13/21 13:49 05:44 05:44 WBC 4.6 L RBC 2.99 L D Hgb 8.1 L Hct 27.6 L D MCV 92.3 MCH 27.1 MCHC 29.3 L RDW 19.3 H Plt Count 259 MPV 9.2 L Immature Gran % (Auto) Neut % (Auto) Lymph % (Auto) [place] % (Auto) Eos % (Auto) Baso % (Auto) Lymph # (Auto) [place] # (Auto) Eos # (Auto) Baso # (Auto) Abs Immat Gran (auto) Absolute Neuts (auto) Absolute Nucleated RBC 0.000 Nucleated RBC % (auto) 0.0 PT INR VBG pH VBG pCO2 VBG pO2 VBG HCO3 VBG O2 Saturation VBG Base Excess Sodium 140 Potassium 3.5 Chloride 99 Carbon Dioxide 37 H Anion Gap 8 L BUN 15 Creatinine 0.55 Estim Creat Clear Calc 79.5 Estimated GFR > 60 Random Glucose Fasting Glucose 109 H Calcium 8.4 D Total Bilirubin AST ALT Alkaline Phosphatase Troponin I High Sens Total Protein Albumin Urine Color Urine Appearance Urine pH Ur Specific [place] Urine Protein Urine Glucose (UA) Urine Ketones Urine Blood Urine Nitrite Ur Leukocyte Esterase Urine RBC Urine WBC Ur Squamous Epith Cells Calcium Oxalate Crystal Urine Bacteria COVID-19 (SILVIA) Negative COVID-19 Clin Com See Note Discharge Plan Discharge Patient Disposition: Xfer [facility] Discharge Diagnosis: ams, hypernatremia Referrals: [facility] [Outside] - 1 Week Cassi Da Silva MD [Primary Care Provider] - 1 Week Discharge Medications: Continued buspirone 5 mg Tablet 5 mg PO TID RF: 0 sennosides [senna] 8.6 mg Tablet 17.2 mg PO DAILY RF: 0 polyethylene glycol 3350 [Miralax] 17 gram Powder In Packet 17 g PO DAILY RF: 0 methadone 10 mg Tablet 10 mg PO DAILY PRN (Reason: OPIOID ADDICATION) RF: 0 methadone 10 mg Tablet 10 mg PO BID RF: 0 risperidone 2 mg Tablet 2 mg PO BID RF: 0 alprazolam 0.5 mg Tablet 0.5 mg PO Q8H PRN (Reason: Anxiety) RF: 0 levothyroxine 50 mcg Tablet 50 mcg PO DAILY@0600 RF: 0 lisinopril 5 mg Tablet 2.5 mg PO DAILY RF: 0 gabapentin 100 mg Capsule 500 mg PO TID RF: 0 alum-mag hydroxide-simeth 200-200-20 mg/5 mL Suspension 30 ml PO Q4H PRN (Reason: GERD) RF: 0 Santyl 250 unit/gram Ointment 1 appl TOPICAL BEDTIME RF: 0 albuterol sulfate 90 mcg/actuation Hfa Aerosol Inhaler 2 puff INHALATION Q4-6H PRN (Reason: Wheezing) RF: 0 lamotrigine 100 mg Tablet 100 mg PO BEDTIME RF: 0 duloxetine 60 mg Capsule,Delayed Release(Dr/Ec) 60 mg PO DAILY RF: 0 Spiriva Respimat 2.5 mcg/actuation Mist 2 puff INHALATION DAILY RF: 0 apixaban 5 mg Tablet 5 mg PO BID RF: 0 doxycycline hyclate 100 mg Tablet 100 mg PO Q12H 38 Days Qty: 0 RF: 0 ascorbic acid (vitamin C) 500 mg Tablet 500 mg PO DAILY RF: 0 zinc sulfate 220 mg Capsule 220 mg PO DAILY RF: 0 Discontinued mirtazapine [Remeron] 15 mg Tablet 15 mg PO BEDTIME RF: 0 oxycodone 5 mg Tablet 5 mg PO Q6H PRN (Reason: Pain) RF: 0 Discharge Orders: Discharge Order (Routine); Ordered 03/13/21 Ordered By: Toño Vargas Diet: advance to usual diet Activity on Discharge: As tolerated Stand Alone Forms: Patient Portal Discharge page Care Plan Goals: re[facility] Health Concerns: hypernatremia Plan of Treatment: golden remeron oxycodone, encourage oral fluids Assessment: see above
--- NOTE | 2021-03-13 11:22 | MHC.CM.PN ---
Patient will return to [facility] via BLS at 2pm. Patient, sister Monse Taylor RN and Dr Sam zimmerman. Continue to monitor for d/c needs.
[2021-03-13 11:36] VITALS: BP 81/48; PULSE 85; RESP 12; O2SAT 94
--- NOTE | 2021-03-13 12:30 | PC.NURSE ---
ATTEMPTED TO GIVE NURSE TO NURSE REPORT TO KELLIE PINZON BUT NO ANSWER AT THIS TIME, WILL ATTEMPT TO CALL AGAIN
--- NOTE | 2021-03-13 13:46 | PC.NURSE ---
SECOND ATTEMPT TO GIVE NURSE TO NURSE REPORT THIS RN WAS TOLD THE THOM WILL CALL BACK FOR REPORT
[2021-03-13 13:49] VITALS: BP 93/61; PULSE 80
== END 2021-03-13 15:44 | disposition skilled nursing facility (03) ==
LOC: HO.ED 13:19 → HO.EDOVER 03-13 09:48
PROVIDERS: Admitting Provider Internal Medicine; Emergency Provider Emergency Medicine; PCP Internal Medicine; Visit Provider Internal Medicine
DX: E87.0 Hyperosmolality and hypernatremia (principal); R41.82 Altered mental status, unspecified; R29.810 Facial weakness; G92.8 Other toxic encephalopathy; T50.915A Adverse effect of multiple unspecified drugs, medicaments and biological substances, initial encounter; Y92.129 Unspecified place in nursing home as the place of occurrence of the external cause; J96.90 Respiratory failure, unspecified, unspecified whether with hypoxia or hypercapnia; U07.1 COVID-19; D64.89 Other specified anemias; L03.818 Cellulitis of other sites; R94.31 Abnormal electrocardiogram [ECG] [EKG]; I26.99 Other pulmonary embolism without acute cor pulmonale; F10.10 Alcohol abuse, uncomplicated; F11.10 Opioid abuse, uncomplicated; Z87.891 Personal history of nicotine dependence; Z20.822 Contact with and (suspected) exposure to COVID-19; Z91.013 Allergy to seafood; Z88.2 Allergy status to sulfonamides; Z88.8 Allergy status to other drugs, medicaments and biological substances; Z91.018 Allergy to other foods; Z79.2 Long term (current) use of antibiotics; Z79.02 Long term (current) use of antithrombotics/antiplatelets; Z99.81 Dependence on supplemental oxygen; Z79.891 Long term (current) use of opiate analgesic; Z79.899 Other long term (current) drug therapy
CPT/HCPCS: 36415; 70450; 71045; 80048; 80053; 81001; 82803; 84484; 85025; 85027; 85610; 87635; 93005; 94640; 96365; 96366; 99219; 99285

== ENCOUNTER 2021-03-20 14:33 | Outpatient (REF) | payer MEDICARE, MEDICAID, SELFPAY ==
--- NOTE | ~2021-03-20 | US_ITS ---
EXAMINATION: ULTRASOUND ARTERIAL DUPLEX BILATERAL CLINICAL INFORMATION: Recent fall with likely bilateral hip fractures.. Bilateral leg immobility. COMPARISON: None TECHNIQUE: Limited bilateral ultrasound imaging was performed. Duodenum subtle finding venous imaging of right leg was performed. FINDINGS: RIGHT LEG: On arterial ultrasound there is is widely patent common femoral artery with biphasic flow and peak systolic velocity of 46.4 cm/second. Proximal femoral artery is patent with a triphasic flow and a peak systolic velocity 103. The proximal superficial femoral arteries patent with biphasic flow and peak systolic velocity ultrasound 0.9 cm/second. The mid superficial femoral artery had no flow. The distal superficial femoral artery and biphasic flow with mid peak systolic velocity of 22.9 cm/second. Incidentally noted was a hallux lobe from profunda into the common femoral artery with thrombus visualized within the proximal superficial femoral vein which appears acute. There is no flow in the segments of the superficial femoral artery to the knee. LEFT LEG: No arterial flow evaluation of left leg performed due to immobility and hip fracture. US/US arterial duplex LE BI IMPRESSION: Acute thrombus in the right common/superficial femoral venous junction. There is slow rouleaux flow seen in the superior right common femoral vein via profunda venous collateral. There is arterial flow visualized in the right common femoral, superficial proximal and distal cervical sequential femoral arteries.. However the exam is severely limited due to patient's immobility and hip fractures. The left leg arterial and venous flow was not performed. Consider venous Doppler exam within a week.
--- NOTE | 2021-03-20 17:22 | ED_ITS ---
HPI - Extremity Problem General Chief complaint: Extremity Injury, Lower Time Seen by Provider: 03/20/21 17:22 Related Data Home Medications Medication Instructions Recorded Confirmed albuterol sulfate 90 2 puff INHALATION Q4-6H PRN 01/30/21 03/12/21 mcg/actuation aerosol inhaler alprazolam 0.5 mg tablet 0.5 mg PO Q8H PRN 01/30/21 03/12/21 aluminum-mag 30 ml PO Q4H PRN 01/30/21 03/12/21 hydroxide-simethicone 200 mg-200 mg-20 mg/5 mL oral susp apixaban 5 mg tablet 5 mg PO BID 01/30/21 03/12/21 buspirone 5 mg tablet 5 mg PO TID 01/30/21 03/12/21 collagenase clostridium 1 appl TOPICAL BEDTIME 01/30/21 03/12/21 histo. 250 unit/gram topical ointment (Santyl) duloxetine 60 mg 60 mg PO DAILY 01/30/21 03/12/21 capsule,delayed release gabapentin 100 mg capsule 500 mg PO TID 01/30/21 03/12/21 lamotrigine 100 mg tablet 100 mg PO BEDTIME 01/30/21 03/12/21 levothyroxine 50 mcg tablet 50 mcg PO DAILY@0600 01/30/21 03/12/21 lisinopril 5 mg tablet 2.5 mg PO DAILY 01/30/21 03/12/21 methadone 10 mg tablet 10 mg PO BID 01/30/21 03/12/21 methadone 10 mg tablet 10 mg PO DAILY PRN 01/30/21 03/12/21 polyethylene glycol 3350 17 17 g PO DAILY 01/30/21 03/12/21 gram oral powder packet (Miralax) risperidone 2 mg tablet 2 mg PO BID 01/30/21 03/12/21 sennosides 8.6 mg tablet 17.2 mg PO DAILY 01/30/21 03/12/21 (senna) tiotropium bromide 2.5 2 puff INHALATION DAILY 01/30/21 03/12/21 mcg/actuation mist for inhalation (Spiriva Respimat) ascorbic acid (vitamin C) 500 mg PO DAILY 03/12/21 03/12/21 500 mg tablet zinc sulfate 220 mg capsule 220 mg PO DAILY 03/12/21 03/12/21 Previous Rx's Medication Instructions Recorded doxycycline hyclate 100 mg tablet 100 mg PO Q12H 38 Days #0 tab 02/19/21 Allergies Allergy/AdvReac Type Severity Reaction Status Date / Time shellfish derived Allergy Unknown Verified 03/12/21 09:14 strawberry Allergy Unknown Verified 03/12/21 09:15 Sulfa (Sulfonamide Allergy Unknown Verified 03/12/21 09:15 Antibiotics) [facility] Past Medical History Medical History Alcoholism Falls Opiate dependence Pulmonary embolus Social History Social History Household Members: Other Housing: Halfway Do you presently have visiting nurse or other home services: No Unable to assess alcohol history related to: Unable to respond and Unknown Patient Tobacco Use Status: Former Tobacco user Tobacco use type: Cigarette Advance Directives Date on File: 01/30/21 service: No Current occupational status: retired Discharge Plan Discharge Patient Disposition: Home, Self-Care Discharge Medications: No Action buspirone 5 mg Tablet 5 mg PO TID 0RF sennosides [senna] 8.6 mg Tablet 17.2 mg PO DAILY 0RF polyethylene glycol 3350 [Miralax] 17 gram Powder In Packet 17 g PO DAILY 0RF methadone 10 mg Tablet 10 mg PO DAILY PRN (Reason: OPIOID ADDICATION) 0RF methadone 10 mg Tablet 10 mg PO BID 0RF risperidone 2 mg Tablet 2 mg PO BID 0RF alprazolam 0.5 mg Tablet 0.5 mg PO Q8H PRN (Reason: Anxiety) 0RF levothyroxine 50 mcg Tablet 50 mcg PO DAILY@0600 0RF lisinopril 5 mg Tablet 2.5 mg PO DAILY 0RF gabapentin 100 mg Capsule 500 mg PO TID 0RF alum-mag hydroxide-simeth 200-200-20 mg/5 mL Suspension 30 ml PO Q4H PRN (Reason: GERD) 0RF Santyl 250 unit/gram Ointment 1 appl TOPICAL BEDTIME 0RF albuterol sulfate 90 mcg/actuation Hfa Aerosol Inhaler 2 puff INHALATION Q4-6H PRN (Reason: Wheezing) 0RF lamotrigine 100 mg Tablet 100 mg PO BEDTIME 0RF duloxetine 60 mg Capsule,Delayed Release(Dr/Ec) 60 mg PO DAILY 0RF Spiriva Respimat 2.5 mcg/actuation Mist 2 puff INHALATION DAILY 0RF apixaban 5 mg Tablet 5 mg PO BID 0RF doxycycline hyclate 100 mg Tablet 100 mg PO Q12H 38 Days Qty: 0 0RF Rx Instructions: X 38 DAYS, FINSIHED 03/29/2021 ascorbic acid (vitamin C) 500 mg Tablet 500 mg PO DAILY 0RF zinc sulfate 220 mg Capsule 220 mg PO DAILY 0RF
== END 2021-03-20 17:31 | disposition home or self-care (01) ==
LOC: HO.US 14:33
PROVIDERS: Visit Provider Surgery Vascular Surgery
DX: Z13.89 Encounter for screening for other disorder (principal)
CPT/HCPCS: 93925

== ENCOUNTER 2021-03-20 17:01 | Emergency (ER) | payer MEDICARE, MEDICAID, SELFPAY ==
[2021-03-20 17:12] VITALS: RESP 18; TEMP 36.8; O2SAT 100; BMI 23.3
--- NOTE | 2021-03-20 17:41 | ED_ITS ---
HPI - General Adult General Chief complaint: General Medical Stated complaint: ?DVT Time Seen by Provider: 03/20/21 17:08 Source: patient Mode of arrival: EMS Limitations: no limitations History of Present Illness HPI narrative: Patient's history of Recent right hip dislocation with history of COVID pneumonia, opiate dependence on methadone, history of pulmonary embolism on Eliquis and history of hypertension [facility] for increased pain in right thigh seen by vascular surgeon Dr. Solorzano who advised arterial Doppler which incidentally showed right common femoral vein thrombosis Related Data Home Medications Medication Instructions Recorded Confirmed albuterol sulfate 90 2 puff INHALATION Q4-6H PRN 01/30/21 03/12/21 mcg/actuation aerosol inhaler alprazolam 0.5 mg tablet 0.5 mg PO Q8H PRN 01/30/21 03/12/21 aluminum-mag 30 ml PO Q4H PRN 01/30/21 03/12/21 hydroxide-simethicone 200 mg-200 mg-20 mg/5 mL oral susp apixaban 5 mg tablet 5 mg PO BID 01/30/21 03/12/21 buspirone 5 mg tablet 5 mg PO TID 01/30/21 03/12/21 collagenase clostridium 1 appl TOPICAL BEDTIME 01/30/21 03/12/21 histo. 250 unit/gram topical ointment (Santyl) duloxetine 60 mg 60 mg PO DAILY 01/30/21 03/12/21 capsule,delayed release gabapentin 100 mg capsule 500 mg PO TID 01/30/21 03/12/21 lamotrigine 100 mg tablet 100 mg PO BEDTIME 01/30/21 03/12/21 levothyroxine 50 mcg tablet 50 mcg PO DAILY@0600 01/30/21 03/12/21 lisinopril 5 mg tablet 2.5 mg PO DAILY 01/30/21 03/12/21 methadone 10 mg tablet 10 mg PO BID 01/30/21 03/12/21 methadone 10 mg tablet 10 mg PO DAILY PRN 01/30/21 03/12/21 polyethylene glycol 3350 17 17 g PO DAILY 01/30/21 03/12/21 gram oral powder packet (Miralax) risperidone 2 mg tablet 2 mg PO BID 01/30/21 03/12/21 sennosides 8.6 mg tablet 17.2 mg PO DAILY 01/30/21 03/12/21 (senna) tiotropium bromide 2.5 2 puff INHALATION DAILY 01/30/21 03/12/21 mcg/actuation mist for inhalation (Spiriva Respimat) ascorbic acid (vitamin C) 500 mg PO DAILY 03/12/21 03/12/21 500 mg tablet zinc sulfate 220 mg capsule 220 mg PO DAILY 03/12/21 03/12/21 Previous Rx's Medication Instructions Recorded doxycycline hyclate 100 mg tablet 100 mg PO Q12H 38 Days #0 tab 02/19/21 Allergies Allergy/AdvReac Type Severity Reaction Status Date / Time shellfish derived Allergy Unknown Verified 03/12/21 09:14 strawberry Allergy Unknown Verified 03/12/21 09:15 Sulfa (Sulfonamide Allergy Unknown Verified 03/12/21 09:15 Antibiotics) Review of Systems Verdana 4l Review of Systems: Yes all other systems are reviewed and Verdana 4d are negative PMFSH Past Medical History Medical History Alcoholism Falls Opiate dependence Pulmonary embolus Social History Social History Household Members: Other Housing: Alf Do you presently have visiting nurse or other home services: No Unable to assess alcohol history related to: Unable to respond and Unknown Patient Tobacco Use Status: Former Tobacco user Tobacco use type: Cigarette Advance Directives: Yes Advance Directives on File: Yes Advance Directives Date on File: 01/30/21 service: No Current occupational status: retired Physical Exam Verdana 4l Vital Signs: Verdana 4d Verdana 4d Vital Signs: Verdana 4d Verdana 4Bd Last Vital Signs Verdana 4d Nurse Ldr New 4d Nurse Ldr New 4d Temp 98.2 F 03/20/21 17:12 Nurse Ldr New 4d Pulse 85 03/20/21 19:27 Nurse Ldr New 4d Resp 14 03/20/21 19:27 BP 122/71 03/20/21 19:27 Pulse Ox 100 03/20/21 17:12 Oxygen Flow Rate 2 03/20/21 17:12 BMI result Body Mass Index 23.3 Appearance: Alert. Oriented X3. No acute distress. ENT: Pharynx normal. Oral Mucosa moist Neck: Normal inspection. Neck supple. CVS: Normal heart rate and rhythm. Pulses normal. Respiratory: No respiratory distress. Equal air entry bilateral, no wheezing/rales/rhonchi Abdomen: Soft and nontender. Bowel sounds are present, no mass palpable, no CVA tenderness Skin: Skin warm and dry. Normal skin color. Normal skin turgor. Extremities: No lower extremity edema. No calf tenderness , tenderness in the right thigh area patient is in foam block to avoid abduction Neuro: Oriented X 3. No motor deficit. Medical Decision Making MDM Narrative Medical decision making narrative: Patient with acute right common femoral DVT case discussed Dr. Solorzano advised to continue Eliquis as before no change in plan of treatment Lab Data Lab results reviewed: Yes I reviewed the patient's lab results. Result diagrams: 03/20/21 19:40 03/20/21 19:40 Labs: Lab Results 03/20/21 03/20/21 03/20/21 Range/Units 19:40 19:40 19:40 WBC 4.7 L (4.8-10.8) X10*3/uL RBC 3.04 L (4.20-5.50) X10*6/uL Hgb 8.4 L (12.0-16.0) g/dl Hct 28.3 L (37.0-47.0) % MCV 93.1 (80.0-98.0) fL MCH 27.6 (27.0-33.0) pg MCHC 29.7 L (31.0-35.0) g/dl RDW 18.6 H (11.0-16.0) % Plt Count 250 (160-400) X10*3/uL MPV 8.9 L (9.4-12.3) fL Immature Gran % (Auto) 0.4 (0.0-0.4) % Neut % (Auto) 55.8 (45-73) % Lymph % (Auto) 30.3 (20-40) % [place] % (Auto) 11.1 H (2-11) % Eos % (Auto) 1.5 (0-4) % Baso % (Auto) 0.9 (0-2) % Lymph # (Auto) 1.4 (1.2-4.9) X10*3/uL [place] # (Auto) 0.5 (0.1-1.2) X10*3/uL Eos # (Auto) 0.1 (0.0-0.4) X10*3/uL Baso # (Auto) 0.0 (0.0-0.2) X10*3/uL Abs Immat Gran (auto) 0.02 (0.00-0.03) X10*3/uL Absolute Neuts (auto) 2.6 (2.0-8.3) x10*3/uL Absolute Nucleated RBC 0.000 (0.0-0.012) X10*3/uL Nucleated RBC % (auto) 0.0 (0.0-0.2) /100WBC PT 15.3 H (9.9-13.0) SEC INR 1.3 H (0.9-1.1) APTT 44.3 H (24.1-38.0) SEC Sodium 146 H (135-145) mmol/L Potassium 3.8 (3.3-5.1) mmol/L Chloride 102 (96-108) mmol/L Carbon Dioxide 39 H (22-29) mmol/L Anion Gap 9 L (12-20) BUN 17 H (9-16) mg/dL Creatinine 0.54 (0.5-1.4) mg/dL Estim Creat Clear Calc 88.4 Estimated GFR > 60 Random Glucose 81 (60-115) mg/dL Calcium 8.9 (8.4-10.2) mg/dL COVID-19 (SILVIA) (Negative) COVID-19 Clin Com 03/20/21 Range/Units 19:40 WBC (4.8-10.8) X10*3/uL RBC (4.20-5.50) X10*6/uL Hgb (12.0-16.0) g/dl Hct (37.0-47.0) % MCV (80.0-98.0) fL MCH (27.0-33.0) pg MCHC (31.0-35.0) g/dl RDW (11.0-16.0) % Plt Count (160-400) X10*3/uL MPV (9.4-12.3) fL Immature Gran % (Auto) (0.0-0.4) % Neut % (Auto) (45-73) % Lymph % (Auto) (20-40) % [place] % (Auto) (2-11) % Eos % (Auto) (0-4) % Baso % (Auto) (0-2) % Lymph # (Auto) (1.2-4.9) X10*3/uL [place] # (Auto) (0.1-1.2) X10*3/uL Eos # (Auto) (0.0-0.4) X10*3/uL Baso # (Auto) (0.0-0.2) X10*3/uL Abs Immat Gran (auto) (0.00-0.03) X10*3/uL Absolute Neuts (auto) (2.0-8.3) x10*3/uL Absolute Nucleated RBC (0.0-0.012) X10*3/uL Nucleated RBC % (auto) (0.0-0.2) /100WBC PT (9.9-13.0) SEC INR (0.9-1.1) APTT (24.1-38.0) SEC Sodium (135-145) mmol/L Potassium (3.3-5.1) mmol/L Chloride (96-108) mmol/L Carbon Dioxide (22-29) mmol/L Anion Gap (12-20) BUN (9-16) mg/dL Creatinine (0.5-1.4) mg/dL Estim Creat Clear Calc Estimated GFR Random Glucose (60-115) mg/dL Calcium (8.4-10.2) mg/dL COVID-19 (SILVIA) Negative (Negative) COVID-19 Clin Com See Note Discharge Plan Discharge Clinical Impression: DVT of lower limb, acute Patient Disposition: Xfer [facility] Transfer Details: Lisbeth Butterfield Instructions: Deep Vein Thrombosis (ED) Additional Instructions: Your venous Doppler showed acute thrombus in right common/superficial femoral vein Case discussed with vascular surgeon advised to continue to take take Eliquis Prescriptions: No Action buspirone 5 mg Tablet 5 mg PO TID 0RF sennosides [senna] 8.6 mg Tablet 17.2 mg PO DAILY 0RF polyethylene glycol 3350 [Miralax] 17 gram Powder In Packet 17 g PO DAILY 0RF methadone 10 mg Tablet 10 mg PO DAILY PRN (Reason: OPIOID ADDICATION) 0RF methadone 10 mg Tablet 10 mg PO BID 0RF risperidone 2 mg Tablet 2 mg PO BID 0RF alprazolam 0.5 mg Tablet 0.5 mg PO Q8H PRN (Reason: Anxiety) 0RF levothyroxine 50 mcg Tablet 50 mcg PO DAILY@0600 0RF lisinopril 5 mg Tablet 2.5 mg PO DAILY 0RF gabapentin 100 mg Capsule 500 mg PO TID 0RF alum-mag hydroxide-simeth 200-200-20 mg/5 mL Suspension 30 ml PO Q4H PRN (Reason: GERD) 0RF Santyl 250 unit/gram Ointment 1 appl TOPICAL BEDTIME 0RF albuterol sulfate 90 mcg/actuation Hfa Aerosol Inhaler 2 puff INHALATION Q4-6H PRN (Reason: Wheezing) 0RF lamotrigine 100 mg Tablet 100 mg PO BEDTIME 0RF duloxetine 60 mg Capsule,Delayed Release(Dr/Ec) 60 mg PO DAILY 0RF Spiriva Respimat 2.5 mcg/actuation Mist 2 puff INHALATION DAILY 0RF apixaban 5 mg Tablet 5 mg PO BID 0RF doxycycline hyclate 100 mg Tablet 100 mg PO Q12H 38 Days Qty: 0 0RF Rx Instructions: X 38 DAYS, FINSIHED 03/29/2021 ascorbic acid (vitamin C) 500 mg Tablet 500 mg PO DAILY 0RF zinc sulfate 220 mg Capsule 220 mg PO DAILY 0RF Interventions: ED Discharge Assessment Last Done: 03/20/21 21:10
[2021-03-20] MEDS: Apixaban 5 MG TABLET 10 MG PO (18:12)
[2021-03-20 19:27] VITALS: BP 122/71; PULSE 85; RESP 14
[2021-03-20 19:45] LABS: MANUAL DIFF FLAG NO
[2021-03-20 19:47] LABS: Basophils Percent Auto 0.9 % (0-2); Eosinophils Absolute Auto 0.1 X10*3/uL (0.0-0.4); Eosinophils Percent Auto 1.5 % (0-4); Hematocrit 28.3 % (37.0-47.0); Hemoglobin 8.4 g/dl (12.0-16.0); Imm Gran Abs Auto 0.02 X10*3/uL (0.00-0.03); Imm Gran Pct Auto 0.4 % (0.0-0.4); Lymphocytes Absolute Auto 1.4 X10*3/uL (1.2-4.9); Lymphocytes Percent Auto 30.3 % (20-40); Mean Corpuscular HGB Conc 29.7 g/dl (31.0-35.0); Mean Corpuscular Hemoglobin 27.6 pg (27.0-33.0); Mean Corpuscular Volume 93.1 fL (80.0-98.0); Mean Platelet Volume 8.9 fL (9.4-12.3); Monocytes Absolute Auto 0.5 X10*3/uL (0.1-1.2); Monocytes Percent Auto 11.1 % (2-11); Neutrophils Absolute Auto 2.6 x10*3/uL (2.0-8.3); Neutrophils Percent Auto 55.8 % (45-73); Platelet Count 250 X10*3/uL (160-400); Red Blood Count 3.04 X10*6/uL (4.20-5.50); Red Cell Distribution Width 18.6 % (11.0-16.0); White Blood Count 4.7 X10*3/uL (4.8-10.8)
[2021-03-20 19:54] LABS: INTERNATIONAL NORM RATIO 1.3 (0.9-1.1); Prothrombin Time 15.3 SEC (9.9-13.0)
[2021-03-20 19:56] LABS: Partial Thromboplastin Time 44.3 SEC (24.1-38.0)
[2021-03-20 20:06] LABS: COVID-19 Test Negative (Negative)
[2021-03-20 20:09] LABS: Anion Gap 9 (12-20); Blood Urea Nitrogen 17 mg/dL (9-16); Calcium 8.9 mg/dL (8.4-10.2); Carbon Dioxide 39 mmol/L (22-29); Chloride 102 mmol/L (96-108); Creatinine Clr Calc Pharmacy 88.4; Estimated Glomerular Filt Rate > 60; Glucose Random 81 mg/dL (60-115); Potassium 3.8 mmol/L (3.3-5.1); Sodium 146 mmol/L (135-145)
== END 2021-03-20 21:48 | disposition skilled nursing facility (03) ==
PROVIDERS: Emergency Provider Internal Medicine
DX: I82.411 Acute embolism and thrombosis of right femoral vein (principal); M79.651 Pain in right thigh; Z20.822 Contact with and (suspected) exposure to COVID-19; I10 Essential (primary) hypertension; F11.20 Opioid dependence, uncomplicated; Z86.711 Personal history of pulmonary embolism; Z79.01 Long term (current) use of anticoagulants; Z87.01 Personal history of pneumonia (recurrent); Z87.891 Personal history of nicotine dependence; Z79.02 Long term (current) use of antithrombotics/antiplatelets
CPT/HCPCS: 80048; 85025; 85610; 85730; 87635; 93925; 99283; 99284

== ENCOUNTER → 2021-03-26 09:38 | Outpatient (BNVA) | payer MEDICARE, MEDICAID, SELFPAY | PROVIDERS: Visit Provider Surgery Vascular Surgery | DX: I73.9 Peripheral vascular disease, unspecified (principal); I82.409 Acute embolism and thrombosis of unspecified deep veins of unspecified lower extremity; Z79.01 Long term (current) use of anticoagulants | CPT/HCPCS: 99212 ==

== ENCOUNTER 2021-05-24 13:16 | Emergency (ER) | payer MEDICARE, MEDICAID, SELFPAY ==
[2021-05-24] VITALS (7 sets, daily range): BP systolic 128–148; BP diastolic 68–90; PULSE 82–92; RESP 10–18; TEMP 36.6–38.2; O2SAT 30–99; BMI 21.9
--- NOTE | ~2021-05-24 | XR_ITS ---
EXAMINATION: XR CHEST CLINICAL INFORMATION: Fever and SOB COMPARISON: Chest 03/12/2021 TECHNIQUE: Frontal view of the chest was obtained. FINDINGS: The lungs are hypoexpanded and clear of acute process. The heart size and pulmonary vascularity is normal. No gross bony abnormality seen. XR/XR chest 1V IMPRESSION: Hyperexpanded lungs but otherwise no acute process. No change from 03/12/2021
--- NOTE | 2021-05-24 13:30 | ECG_ITS ---
Test Reason : ams Blood Pressure : / mmHG Vent. Rate : 083 BPM Atrial Rate : 083 BPM P-R Int : 138 ms QRS Dur : 096 ms QT Int : 390 ms P-R-T Axes : 045 -49 014 degrees QTc Int : 458 ms Normal sinus rhythm Left anterior fascicular block Nonspecific T wave abnormality Abnormal ECG When compared with ECG of 12-MAR-2021 09:56, No significant change was found Referred By: Vera aLzo Electronically Signed By:RUBEN HORTON
--- NOTE | 2021-05-24 13:30 | ED_ITS ---
HPI - General Adult General Chief complaint: General Medical Stated complaint: unresponsive - now responsive Time Seen by Provider: 05/24/21 13:22 Source: patient and EMS Mode of arrival: EMS Limitations: no limitations History of Present Illness HPI narrative: Patient is a 70 year old female presenting to the emergency department today with a possible altered mental status. Patient comes from a SNF. EMS states that the patient was found in her room without her oxygen on and was sating very low. EMS states that once the patient had her oxygen applied, like she is supposed to at baseline, she began to respond to questions and was easily aroused. Patient denies any dizziness, lightheadedness, abdominal pain, nausea, vomiting, fever, chills, blurry vision, double vision, loss of vision, chest pain, difficulty breathing, shortness of breath, back pain, night sweats, pain with urination, increased urinary frequency, increased urinary urgency, blood in her urine or stool, syncope or a near syncopal episode, recent trauma or falls, bowel incontinence, bladder incontinence, bowel retention, bladder retention, or any other complaints at this time. Onset (ago): hour(s) Related Data Home Medications Medication Instructions Recorded Confirmed albuterol sulfate 90 mcg/actuation 2 puff INHALATION Q4-6H PRN 01/30/21 03/12/21 aerosol inhaler alprazolam 0.5 mg tablet 0.5 mg PO Q8H PRN 01/30/21 03/12/21 aluminum-mag hydroxide-simethicone 30 ml PO Q4H PRN 01/30/21 03/12/21 200 mg-200 mg-20 mg/5 mL oral susp apixaban 5 mg tablet 5 mg PO BID 01/30/21 03/12/21 buspirone 5 mg tablet 5 mg PO TID 01/30/21 03/12/21 collagenase clostridium histo. 250 1 appl TOPICAL BEDTIME 01/30/21 03/12/21 unit/gram topical ointment (Santyl) duloxetine 60 mg capsule,delayed 60 mg PO DAILY 01/30/21 03/12/21 release gabapentin 100 mg capsule 500 mg PO TID 01/30/21 03/12/21 lamotrigine 100 mg tablet 100 mg PO BEDTIME 01/30/21 03/12/21 levothyroxine 50 mcg tablet 50 mcg PO DAILY@0600 01/30/21 03/12/21 lisinopril 5 mg tablet 2.5 mg PO DAILY 01/30/21 03/12/21 methadone 10 mg tablet 10 mg PO BID 01/30/21 03/12/21 methadone 10 mg tablet 10 mg PO DAILY PRN 01/30/21 03/12/21 polyethylene glycol 3350 17 gram 17 g PO DAILY 01/30/21 03/12/21 oral powder packet (Miralax) risperidone 2 mg tablet 2 mg PO BID 01/30/21 03/12/21 sennosides 8.6 mg tablet (senna) 17.2 mg PO DAILY 01/30/21 03/12/21 tiotropium bromide 2.5 2 puff INHALATION DAILY 01/30/21 03/12/21 mcg/actuation mist for inhalation (Spiriva Respimat) ascorbic acid (vitamin C) 500 mg 500 mg PO DAILY 03/12/21 03/12/21 tablet zinc sulfate 220 mg capsule 220 mg PO DAILY 03/12/21 03/12/21 Previous Rx's Medication Instructions Recorded doxycycline hyclate 100 mg tablet 100 mg PO Q12H 38 Days #0 tab 02/19/21 cephalexin 500 mg capsule 500 mg PO Q6H 7 Days #28 cap 05/24/21 Allergies Allergy/AdvReac Type Severity Reaction Status Date / Time shellfish derived Allergy Unknown Verified 05/24/21 13:34 strawberry Allergy Unknown Verified 05/24/21 13:34 Sulfa (Sulfonamide Allergy Unknown Verified 05/24/21 13:34 Antibiotics) Review of Systems Constitutional: Constitutional: Reports no additional constitutional compla ints, Denies chills, Denies fever(s) and Denies night sweats Eyes: Eyes: Reports no additional eye complaints, Denies blurry vision, Denies change in vision, Denies diplopia, Denies eye discharge, Denies loss of vision and Denies eye pain ENT: Denies dizziness Cardiovascular: Cardiovascular: Reports no additional cardiovascular complaints, Denies chest pain, Denies lightheadedness, Denies Loss of Consciousness and Denies dyspnea Respiratory: Respiratory: Reports no additional respiratory complaints and Denies dyspnea Gastrointestinal: Gastrointestinal: Reports no additional gastrointestinal complaints, Denies abdominal pain, Denies melena, Denies hematochezia, Denies change in bowel habits and Denies change in stool character Genitourinary: Genitourinary: Denies hematuria, Denies urinary frequency, Denies dysuria, Denies urinary incontinence, Denies urinary hesitancy and Denies urinary urgency Musculoskeletal: Musculoskeletal: Reports no additional musculoskeletal complaints, Denies numbness and Denies tingling Neurologic: Denies dizziness, Denies loss of vision, Denies numbness and Denies tingling Psychiatric: Psychiatric: Reports no additional psychiatric complaints Endocrine: Endocrine: Reports no additional endocrine complaints Hematologic/Lymphatic: Hematologic/Lymphatic: Reports no additional hematologic/lymphatic complaints Allergic/Immunologic: Allergic/Immunologic: Reports no additional allergic/immunologic complaints [facility] Past Medical History Attestation statement: The following information was validated with the patient. Source: old records reviewed Medical History Acute respiratory failure with hypoxia Alcohol abuse, uncomplicated Alcoholism Anemia in other chronic diseases classified elsewhere Bacteremia Brief psychotic disorder Cellulitis of unspecified part of limb COVID-19 Falls Localized edema Metabolic encephalopathy Non-pressure chronic ulcer of right calf with unspecified severity Opiate dependence Opioid dependence, in remission Other abnormalities of gait and mobility Other chronic pain Personal history of other venous thrombosis and embolism Pulmonary embolus Unsteadiness on feet Social History Social History Household Members: Other Housing: Retirement Do you presently have visiting nurse or other home services: No Unable to assess alcohol history related to: Unable to respond and Unknown Patient Tobacco Use Status: Former Tobacco user Tobacco use type: Cigarette Advance Directives: Yes Advance Directives on File: Yes Advance Directives Date on File: 03/14/21 service: No Current occupational status: retired Physical Exam ED Vital Signs: Vital Signs - 24 hr 05/24/21 13:34 05/24/21 15:11 05/24/21 15:36 Temperature 100.7 F H 99.9 F Pulse Rate 88 82 83 Respiratory Rate 18 10 L 16 Blood Pressure 148/81 H 141/85 H 128/83 Pulse Oximetry 98 99 BMI result Body Mass Index 21.9 Const General: cooperative, no acute distress, alert and awake Nutritional Appearance: well nourished Orientation/consciousness: patient oriented x3 Limitations: no limitations HENMT Head: Yes normal to inspection and Yes atraumatic Ears: hearing grossly normal bilaterally and external ears normal General nose exam: Normal external nose present, no nasal discharge noted and no epistaxis Face and sinus: Yes normal facial exam, No abrasion and No laceration Mouth: Normal oral and palatal mucosa present, no drooling and no muffled voice Eyes General: appearance normal, both eyes and all related structures Periorbital: periorbital findings normal Eyelids: Yes eyelids normal Conjunctivae: conjunctivae normal Pupils: Equal, round and reactive pupils present EOM: EOMs intact bilaterally Neck Neck: Yes normal visual inspection, Yes full ROM and Yes no lymphadenopathy Chest Chest palpation & inspection: normal inspection of the chest Resp Other: patient is on 4L of oxygen via nasal cannula Effort & Inspection: normal respiratory effort and able to speak in complete sentences Auscultation: clear to auscultation bilaterally Cardio Rate: regular rate Rhythm: regular rhythm GI Inspection: Yes normal to inspection Skin Other: patient has chronic ulcer on the right heel, no warmth or redness to the area Neuro General: patient oriented x3 and moves all extremities Cranial nerves: Yes Equal, round and reactive pupils present Cognition (Neuro): normal cognition Motor exam (neuro): 5/5 motor strength present throughout Sensory Exam: Normal double simultaneous stimulation for sensation Coordination: [id number] test normal Extrem General: Yes normal to inspection, Yes full ROM and Yes capillary refill normal Psych Appearance: grossly normal Mental Status: mental status grossly normal Affect: normal affect Attitude: cooperative Thought process: Normal thought process present Thought content: Normal thought content present Insight: Good insight present (Psych) Medical Decision Making MDM Narrative Medical decision making narrative: Patient is a 70 year old female presenting to the emergency department today w ith possible altered mental status. Patient's physical exam initially showed a 70 year old female that was slow to respond but responded appropriately to all questions. After the patient received IV fluids, IV antibiotics, and continued to be oxygenated with 4L on NC as she is supposed to be, she became completely alert. Patient was able to eat and drink without incident. Patient's blood work was unremarkable. Patient's urine showed an acute urinary tract infection. Patient's EKG was unremarkable. Patient's chest x-ray showed no acute process. Patient's ABG was unremarkable. I explained my physical exam findings as well as all test results to the patient. I answered all questions asked by the patient. I stressed the importance of the patient taking her medication as prescribed and using her oxygen as intended. I stressed the importance of the patient following up with her primary care provider. I stressed the importance of the patient returning to the emergency department immediately if her symptoms were to worsen or if she were to develop any dizziness, shortness of breath, difficulty breathing, chest pain, blurry vision, loss of vision, nausea, vomiting, abdominal pain, fever, chills, back pain, or any other complaints. Patient verbalized agreement and understanding with this treatment plan and discharge. Differential Diagnosis Differential Diagnosis: urinary tract infection, hypoxia Medical Records Medical records reviewed: Yes I reviewed the patient's medical records. Lab Data Lab results reviewed: Yes I reviewed the patient's lab results. Result diagrams: 05/24/21 13:53 05/24/21 13:53 Labs: Lab Results 05/24/21 05/24/21 05/24/21 Range/Units 13:52 13:52 13:53 WBC 9.4 (4.8-10.8) X10*3/uL RBC 4.43 D (4.20-5.50) X10*6/uL Hgb 12.6 D (12.0-16.0) g/dl Hct 40.8 D (37.0-47.0) % MCV 92.1 (80.0-98.0) fL MCH 28.4 (27.0-33.0) pg MCHC 30.9 L (31.0-35.0) g/dl RDW 17.9 H (11.0-16.0) % Plt Count 257 (160-400) X10*3/uL MPV 10.0 (9.4-12.3) fL Immature Gran % (Auto) 0.4 (0.0-0.4) % Neut % (Auto) 80.4 H (45-73) % Lymph % (Auto) 12.6 L (20-40) % [place] % (Auto) 5.8 (2-11) % Eos % (Auto) 0.2 (0-4) % Baso % (Auto) 0.6 (0-2) % Lymph # (Auto) 1.2 (1.2-4.9) X10*3/uL [place] # (Auto) 0.6 (0.1-1.2) X10*3/uL Eos # (Auto) 0.0 (0.0-0.4) X10*3/uL Baso # (Auto) 0.1 (0.0-0.2) X10*3/uL Abs Immat Gran (auto) 0.04 H (0.00-0.03) X10*3/uL Absolute Neuts (auto) 7.6 (2.0-8.3) x10*3/uL Absolute Nucleated RBC 0.000 (0.0-0.012) X10*3/uL Nucleated RBC % (auto) 0.0 (0.0-0.2) /100WBC O2 Saturation % ABG pH at Pt Temp (7.35-7.45) ABG pCO2 at Pt Temp (32-45) mmHg ABG pO2 at Pt Temp (83-108) mmHg ABG HCO3 (22-26) mmol/L ABG Base Excess (Actual) mmol/L Sodium (135-145) mmol/L Potassium (3.3-5.1) mmol/L Chloride (96-108) mmol/L Carbon Dioxide (22-29) mmol/L Anion Gap (12-20) BUN (9-16) mg/dL Creatinine (0.5-1.4) mg/dL Estim Creat Clear Calc Estimated GFR Random Glucose (60-115) mg/dL Lactic Acid (0.5-2.0) mmol/L Calcium (8.4-10.2) mg/dL Total Bilirubin (0.0-1.0) mg/dL AST (5-31) U/L ALT (0-31) U/L Alkaline Phosphatase (39-117) U/L Total Protein (6.5-8.0) g/dL Albumin (3.5-5.0) g/dL Urine Color Urine Appearance Urine pH (5.0-8.0) Ur Specific [place] (1.005-1.025) Urine Protein (NEG-TRACE) MG/DL Urine Glucose (UA) (NEG) MG/DL Urine Ketones (NEG) MG/DL Urine Blood (NEG) Urine Nitrite (NEG) Ur Leukocyte Esterase (NEG) Urine RBC (0) /HPF Urine WBC (0-4) /HPF Ur Squamous Epith Cells /LPF Calcium Oxalate Crystal /LPF Urine Bacteria /LPF COVID-19 (SILVIA) Negative (Negative) COVID-19 Clin Com See Note Influenza Type A (DOUGLAS) Negative (Negative) Influenza Type B (DOUGLAS) Negative (Negative) Influenza A & B Note See Note 05/24/21 05/24/21 05/24/21 Range/Units 13:53 13:53 14:27 WBC (4.8-10.8) X10*3/uL RBC (4.20-5.50) X10*6/uL Hgb (12.0-16.0) g/dl Hct (37.0-47.0) % MCV (80.0-98.0) fL MCH (27.0-33.0) pg MCHC (31.0-35.0) g/dl RDW (11.0-16.0) % Plt Count (160-400) X10*3/uL MPV (9.4-12.3) fL Immature Gran % (Auto) (0.0-0.4) % Neut % (Auto) (45-73) % Lymph % (Auto) (20-40) % [place] % (Auto) (2-11) % Eos % (Auto) (0-4) % Baso % (Auto) (0-2) % Lymph # (Auto) (1.2-4.9) X10*3/uL [place] # (Auto) (0.1-1.2) X10*3/uL Eos # (Auto) (0.0-0.4) X10*3/uL Baso # (Auto) (0.0-0.2) X10*3/uL Abs Immat Gran (auto) (0.00-0.03) X10*3/uL Absolute Neuts (auto) (2.0-8.3) x10*3/uL Absolute Nucleated RBC (0.0-0.012) X10*3/uL Nucleated RBC % (auto) (0.0-0.2) /100WBC O2 Saturation 97.0 % ABG pH at Pt Temp 7.48 H (7.35-7.45) ABG pCO2 at Pt Temp 41 (32-45) mmHg ABG pO2 at Pt Temp 107 (83-108) mmHg ABG HCO3 31 H (22-26) mmol/L ABG Base Excess (Actual) 7.3 mmol/L Sodium 141 (135-145) mmol/L Potassium 3.7 (3.3-5.1) mmol/L Chloride 103 (96-108) mmol/L Carbon Dioxide 30 H (22-29) mmol/L Anion Gap 12 (12-20) BUN 14 (9-16) mg/dL Creatinine 0.70 (0.5-1.4) mg/dL Estim Creat Clear Calc 65.5 Estimated GFR > 60 Random Glucose 91 (60-115) mg/dL Lactic Acid 1.5 (0.5-2.0) mmol/L Calcium 8.3 L D (8.4-10.2) mg/dL Total Bilirubin 0.6 (0.0-1.0) mg/dL AST 22 D (5-31) U/L ALT 27 (0-31) U/L Alkaline Phosphatase 188 H D (39-117) U/L Total Protein 5.8 L (6.5-8.0) g/dL Albumin 3.0 L (3.5-5.0) g/dL Urine Color Urine Appearance Urine pH (5.0-8.0) Ur Specific [place] (1.005-1.025) Urine Protein (NEG-TRACE) MG/DL Urine Glucose (UA) (NEG) MG/DL Urine Ketones (NEG) MG/DL Urine Blood (NEG) Urine Nitrite (NEG) Ur Leukocyte Esterase (NEG) Urine RBC (0) /HPF Urine WBC (0-4) /HPF Ur Squamous Epith Cells /LPF Calcium Oxalate Crystal /LPF Urine Bacteria /LPF COVID-19 (SILVIA) (Negative) COVID-19 Clin Com Influenza Type A (DOUGLAS) (Negative) Influenza Type B (DOUGLAS) (Negative) Influenza A & B Note 05/24/21 Range/Units 15:51 WBC (4.8-10.8) X10*3/uL RBC (4.20-5.50) X10*6/uL Hgb (12.0-16.0) g/dl Hct (37.0-47.0) % MCV (80.0-98.0) fL MCH (27.0-33.0) pg MCHC (31.0-35.0) g/dl RDW (11.0-16.0) % Plt Count (160-400) X10*3/uL MPV (9.4-12.3) fL Immature Gran % (Auto) (0.0-0.4) % Neut % (Auto) (45-73) % Lymph % (Auto) (20-40) % [place] % (Auto) (2-11) % Eos % (Auto) (0-4) % Baso % (Auto) (0-2) % Lymph # (Auto) (1.2-4.9) X10*3/uL [place] # (Auto) (0.1-1.2) X10*3/uL Eos # (Auto) (0.0-0.4) X10*3/uL Baso # (Auto) (0.0-0.2) X10*3/uL Abs Immat Gran (auto) (0.00-0.03) X10*3/uL Absolute Neuts (auto) (2.0-8.3) x10*3/uL Absolute Nucleated RBC (0.0-0.012) X10*3/uL Nucleated RBC % (auto) (0.0-0.2) /100WBC O2 Saturation % ABG pH at Pt Temp (7.35-7.45) ABG pCO2 at Pt Temp (32-45) mmHg ABG pO2 at Pt Temp (83-108) mmHg ABG HCO3 (22-26) mmol/L ABG Base Excess (Actual) mmol/L Sodium (135-145) mmol/L Potassium (3.3-5.1) mmol/L Chloride (96-108) mmol/L Carbon Dioxide (22-29) mmol/L Anion Gap (12-20) BUN (9-16) mg/dL Creatinine (0.5-1.4) mg/dL Estim Creat Clear Calc Estimated GFR Random Glucose (60-115) mg/dL Lactic Acid (0.5-2.0) mmol/L Calcium (8.4-10.2) mg/dL Total Bilirubin (0.0-1.0) mg/dL AST (5-31) U/L ALT (0-31) U/L Alkaline Phosphatase (39-117) U/L Total Protein (6.5-8.0) g/dL Albumin (3.5-5.0) g/dL Urine Color YELLOW Urine Appearance CLEAR Urine pH 7.5 (5.0-8.0) Ur Specific [place] 1.015 (1.005-1.025) Urine Protein NEG (NEG-TRACE) MG/DL Urine Glucose (UA) NEG (NEG) MG/DL Urine Ketones NEG (NEG) MG/DL Urine Blood TRACE (NEG) Urine Nitrite POS H (NEG) Ur Leukocyte Esterase NEG (NEG) Urine RBC 5-9 H (0) /HPF Urine WBC 1-4 (0-4) /HPF Ur Squamous Epith Cells 2+ /LPF Calcium Oxalate Crystal 1+ /LPF Urine Bacteria 3+ /LPF COVID-19 (SILVIA) (Negative) COVID-19 Clin Com Influenza Type A (DOUGLAS) (Negative) Influenza Type B (DOUGLAS) (Negative) Influenza A & B Note Imaging Data Chest x-ray: Attestation: I personally reviewed and interpreted this imaging study as follows: My impression: No acute process. Radiologist's impression: EXAMINATION: XR CHEST CLINICAL INFORMATION: Fever and SOB COMPARISON: Chest 03/12/2021 TECHNIQUE: Frontal view of the chest was obtained. FINDINGS: The lungs are hypoexpanded and clear of acute process. The heart size and pulmonary vascularity is normal. No gross bony abnormality seen. XR/XR chest 1V IMPRESSION: Hyperexpanded lungs but otherwise no acute process. No change from 03/12/2021 Dictated By: Taiwo Amezquita MD Signed By: Electronically signed by Taiwo Amezquita MD 05/24/21 3863 ECG Data Attestation: I personally reviewed and interpreted this ECG as follows: Prior ECG tracings: available for review Interpretation: Vent. Rate: 083 BPM ? ? Atrial Rate: 083 BPM P-R Int: 138 ms? QRS Dur: 096 ms QT Int: 390 ms ? ? ? P-R-T Axes: 045 -49 014 degrees QTc Int: 458 ms ? Normal sinus rhythm Left anterior fascicular block Nonspecific T wave abnormality Abnormal ECG When compared with ECG of 12-MAR-2021 09:56, No significant change was found Discharge Plan Discharge Clinical Impression: Urinary tract infection, Oxygen dependent Patient Disposition: Xfer [facility] Transfer Details: She is being sent back to where she lives. Instructions: Urinary Incontinence (ED), Urinary Tract Infection in Older Adults (ED) Additional Instructions: Follow up with your primary care provider. Return to the emergency department immediately if your symptoms worsen or if you develop any dizziness, shortness of breath, difficulty breathing, chest pain, blurry vision, loss of vision, nausea, vomiting, abdominal pain, fever, chills, back pain, or any other complaints. Prescriptions: New cephalexin 500 mg capsule 500 mg PO Q6H 7 Days Qty: 28 0RF No Action buspirone 5 mg Tablet 5 mg PO TID 0RF sennosides [senna] 8.6 mg Tablet 17.2 mg PO DAILY 0RF polyethylene glycol 3350 [Miralax] 17 gram Powder In Packet 17 g PO DAILY 0RF methadone 10 mg Tablet 10 mg PO DAILY PRN (Reason: OPIOID ADDICATION) 0RF methadone 10 mg Tablet 10 mg PO BID 0RF risperidone 2 mg Tablet 2 mg PO BID 0RF alprazolam 0.5 mg Tablet 0.5 mg PO Q8H PRN (Reason: Anxiety) 0RF levothyroxine 50 mcg Tablet 50 mcg PO DAILY@0600 0RF lisinopril 5 mg Tablet 2.5 mg PO DAILY 0RF gabapentin 100 mg Capsule 500 mg PO TID 0RF alum-mag hydroxide-simeth 200-200-20 mg/5 mL Suspension 30 ml PO Q4H PRN (Reason: GERD) 0RF Santyl 250 unit/gram Ointment 1 appl TOPICAL BEDTIME 0RF albuterol sulfate 90 mcg/actuation Hfa Aerosol Inhaler 2 puff INHALATION Q4-6H PRN (Reason: Wheezing) 0RF lamotrigine 100 mg Tablet 100 mg PO BEDTIME 0RF duloxetine 60 mg Capsule,Delayed Release(Dr/Ec) 60 mg PO DAILY 0RF Spiriva Respimat 2.5 mcg/actuation Mist 2 puff INHALATION DAILY 0RF apixaban 5 mg Tablet 5 mg PO BID 0RF doxycycline hyclate 100 mg Tablet 100 mg PO Q12H 38 Days Qty: 0 0RF Rx Instructions: X 38 DAYS, FINSIHED 03/29/2021 ascorbic acid (vitamin C) 500 mg Tablet 500 mg PO DAILY 0RF zinc sulfate 220 mg Capsule 220 mg PO DAILY 0RF Referrals: Physician,Unknown J [Primary Care Provider] - 2 days (Follow up with your PCP) Print Language: Albanian
[2021-05-24 13:58] LABS: MANUAL DIFF FLAG NO
[2021-05-24 14:05] LABS: Basophils Absolute Auto 0.1 X10*3/uL (0.0-0.2); Basophils Percent Auto 0.6 % (0-2); Eosinophils Percent Auto 0.2 % (0-4); Hematocrit 40.8 % (37.0-47.0); Hemoglobin 12.6 g/dl (12.0-16.0); Imm Gran Abs Auto 0.04 X10*3/uL (0.00-0.03); Imm Gran Pct Auto 0.4 % (0.0-0.4); Lymphocytes Absolute Auto 1.2 X10*3/uL (1.2-4.9); Lymphocytes Percent Auto 12.6 % (20-40); Mean Corpuscular HGB Conc 30.9 g/dl (31.0-35.0); Mean Corpuscular Hemoglobin 28.4 pg (27.0-33.0); Mean Corpuscular Volume 92.1 fL (80.0-98.0); Monocytes Absolute Auto 0.6 X10*3/uL (0.1-1.2); Monocytes Percent Auto 5.8 % (2-11); Neutrophils Absolute Auto 7.6 x10*3/uL (2.0-8.3); Neutrophils Percent Auto 80.4 % (45-73); Platelet Count 257 X10*3/uL (160-400); Red Blood Count 4.43 X10*6/uL (4.20-5.50); Red Cell Distribution Width 17.9 % (11.0-16.0); White Blood Count 9.4 X10*3/uL (4.8-10.8)
[2021-05-24 14:13] LABS: Lactic Acid 1.5 mmol/L (0.5-2.0)
[2021-05-24 14:15] LABS: Influenza A Negative (Negative); Influenza B2 Negative (Negative)
[2021-05-24 14:18] LABS: Alanine Aminotransferase 27 U/L (0-31); Alkaline Phosphatase 188 U/L (39-117); Anion Gap 12 (12-20); Aspartate Amino Transferase 22 U/L (5-31); Bilirubin Total 0.6 mg/dL (0.0-1.0); Blood Urea Nitrogen 14 mg/dL (9-16); Calcium 8.3 mg/dL (8.4-10.2); Carbon Dioxide 30 mmol/L (22-29); Chloride 103 mmol/L (96-108); Creatinine Clr Calc Pharmacy 65.5; Estimated Glomerular Filt Rate > 60; Glucose Random 91 mg/dL (60-115); Potassium 3.7 mmol/L (3.3-5.1); Sodium 141 mmol/L (135-145); Total Protein 5.8 g/dL (6.5-8.0)
[2021-05-24] MEDS: Acetaminophen Supp 650 MG SUPP.RECT PR (14:23)
[2021-05-24] MEDS: Piperacillin Sodium/Tazobactam 4.5 GM in 0.9 % Sodium Chloride 100 ML IV (14:23)
[2021-05-24 14:34] LABS: ABG Base Excess 7.3 mmol/L; ABG HCO3 31 mmol/L (22-26); ABG pCO2 41 mmHg (32-45); ABG pH 7.48 (7.35-7.45); ABG pO2 107 mmHg (83-108)
[2021-05-24 14:35] LABS: COVID-19 Test Negative (Negative); IDNOW Serial# 55D5AD1C
--- NOTE | 2021-05-24 15:37 | PC.NURSE ---
patient sleeping, wakes to stimulus, altert to person/place, shelter monitor nsr 80s, vss, pt requesting po will notify provider, will continue to monitor.
[2021-05-24 16:08] LABS: Appearance Urine CLEAR; Color Urine YELLOW; Glucose Urine UA NEG (NEG); Leukocyte Esterase Urine NEG (NEG); Nitrite Urine POS (NEG); PH 7.5 (5.0-8.0); Specific Gravity - Urine 1.015 (1.005-1.025); UACC Culture Trigger YES; Urine Blood TRACE (NEG); Urine Ketones NEG (NEG); Urine Protein NEG (NEG-TRACE)
--- NOTE | 2021-05-24 16:25 | PC.NURSE ---
pt awake, alert, speaking in full sentences, pt requesting PO, pre request of provider pt had nursing swallow exam, patient passed swallow and was given po.
[2021-05-24 17:46] LABS: Bacteria Urine 3+ /LPF; Calcium Oxalate Crystals Urine 1+ /LPF; Squamous Epithelial Cell Urine 2+ /LPF
--- NOTE | 2021-05-24 19:00 | PC.NURSE ---
report was called to nursing facility, pt awaiting ambulance to return to facility.
--- NOTE | 2021-05-24 21:30 | PC.NURSE ---
patient continues to be alert & oriented, awaiting ambulance back to nursing facility, 3L O2 nc, pt denies pain or discomfort, pt has been eating well while waiting for ems arrival. pt has no c/o pain or discomfort, will continue to monitor.
== END 2021-05-25 00:27 | disposition skilled nursing facility (03) ==
PROVIDERS: Physician Assistant Medical; Emergency Provider Student in an Organized Health Care Education/Training Program
DX: N39.0 Urinary tract infection, site not specified (principal); Z20.822 Contact with and (suspected) exposure to COVID-19; F11.20 Opioid dependence, uncomplicated; F10.20 Alcohol dependence, uncomplicated; Z86.711 Personal history of pulmonary embolism; Z79.01 Long term (current) use of anticoagulants; Z79.899 Other long term (current) drug therapy; Z99.81 Dependence on supplemental oxygen
CPT/HCPCS: 71045; 80053; 81001; 81003; 82803; 83605; 85025; 87040; 87086; 87088; 87186; 87502; 87635; 93005; 96365; 99284; J2543

== ENCOUNTER → 2021-06-25 09:39 | Outpatient (BNVA) | payer MEDICARE, MEDICAID, SELFPAY | PROVIDERS: PCP Family Medicine; Visit Provider Surgery Vascular Surgery | DX: I73.9 Peripheral vascular disease, unspecified (principal); I82.401 Acute embolism and thrombosis of unspecified deep veins of right lower extremity | CPT/HCPCS: 99212 ==

== ENCOUNTER 2021-07-23 13:09 | Inpatient (IN) | payer MEDICARE, MEDICAID, SELFPAY ==
[2021-07-23] VITALS (7 sets, daily range): BP systolic 94–115; BP diastolic 58–74; PULSE 77–91; RESP 10–22; TEMP 36.4–37.1; O2SAT 77–96; BMI 22.1
--- NOTE | ~2021-07-23 | CT_ITS ---
EXAMINATION: CT CHEST WITHOUT CONTRAST CLINICAL INFORMATION: Hypoxic COMPARISON: Chest x-ray from earlier today TECHNIQUE: Multidetector volumetric CT imaging of the chest was done. Axial MIP volume rendering provided. Sagittal and coronal reformatted images were obtained. This CT examination was performed using dose optimization techniques as appropriate, variously including the following: *Automated exposure control *Adjustment of mA and/or kV according to patient size (this includes techniques or standardized protocols for targeted exams where dose is matched to indication/reason for exam; i.e. extremities or head) *Use of iterative reconstruction technique DLP: 284 mGy-cm FINDINGS: LUNGS: Detailed parenchymal evaluation is limited due to respiratory motion artifact. There is patchy tree-in-bud type nodularity within portions of the left upper and lower lobes. There are a few patchy regions of groundglass opacity within the right upper lobe. There are dense areas of opacity in the inferior lingula, right middle lobe, and bibasilar lower lobes which are favored to at least partially be due to atelectasis, as some associated volume loss is seen. Multiple right lower lobe airways appear opacified. MEDIASTINUM: The visualized thyroid gland is unremarkable. No discrete mediastinal lymphadenopathy is seen. There is cardiomegaly without pericardial effusion. There is scattered calcification along the aorta. PLEURA: There is no pleural effusion. No pleural mass or thickening. AXILLA: No lymphadenopathy. UPPER ABDOMEN: The common bile duct appears dilated. OSSEOUS STRUCTURES: Several healed posterior left rib fractures are noted. There is a healed fracture of the lower sternum. Compression deformity of T11 is favored to be chronic. Degenerative changes are noted in the spine. CT/CT chest wo con IMPRESSION: 1. Patchy, tree-in-bud type nodularity within much of the left lung as well as a few patchy regions of groundglass opacity in the right upper lobe, overall favoring an infectious/inflammatory etiology including regions of bronchiolitis. Detailed parenchymal evaluation is limited due to respiratory motion artifact; consider follow-up CT in 3 months to assess for resolution. 2. Dense regions of opacity in the lingula, right middle lobe, and bilateral lower lobes likely at least partially due to atelectasis, though some superimposed consolidation is difficult to exclude. 3. Cardiomegaly. 4. Common bile duct appears dilated in the upper abdomen; this may be further assessed with ultrasound and liver function tests as clinically warranted.
--- NOTE | ~2021-07-23 | CT_ITS ---
EXAMINATION: CT HEAD WITHOUT CONTRAST CLINICAL INFORMATION: Confusion COMPARISON: 03/12/2021 TECHNIQUE: Contiguous axial imaging was performed from the skull base to vertex without intravenous administration of contrast. This CT examination was performed using dose optimization techniques as appropriate, variously including the following: *Automated exposure control *Adjustment of mA and/or kV according to patient size (this includes techniques or standardized protocols for targeted exams where dose is matched to indication/reason for exam; i.e. extremities or head) *Use of iterative reconstruction technique DLP: 673 mGy-cm FINDINGS: There is no evidence of acute intracranial hemorrhage or territorial infarction. No abnormal mass effect or midline shift is seen. Mobley to white matter differentiation is well preserved. No extra-axial fluid collections are identified. The ventricles are normal in size. There is mild periventricular white matter hypoattenuation consistent with chronic small vessel ischemic disease. Mild volume loss is noted. The osseous structures and soft tissues are normal. The mastoid air cells and visualized portions of the paranasal sinuses are well aerated. CT/CT head/brain wo con IMPRESSION: No acute intracranial pathology.
--- NOTE | ~2021-07-23 | XR_ITS ---
EXAMINATION: XR CHEST CLINICAL INFORMATION: Hypotensive. COMPARISON: 05/24/2021. Chest radiograph TECHNIQUE: Frontal view of the chest was obtained. FINDINGS: Rotated and kyphotic positioning as well as low lung volumes limit evaluation. There is mild elevation of the right hemidiaphragm with mild superjacent linear markings and blunting of the right costophrenic angle. The lungs are otherwise clear. The heart and mediastinal structures are unremarkable. XR/XR chest 1V IMPRESSION: Mild bibasilar linear atelectasis. A small right pleural effusion cannot be excluded. No definitive focal infiltrate or congestion.
--- NOTE | 2021-07-23 13:22 | ECG_ITS ---
Test Reason : abn labs Blood Pressure : / mmHG Vent. Rate : 079 BPM Atrial Rate : 079 BPM P-R Int : 140 ms QRS Dur : 102 ms QT Int : 418 ms P-R-T Axes : 037 -32 -39 degrees QTc Int : 479 ms Normal sinus rhythm Left axis deviation T wave abnormality, consider anterior ischemia Prolonged QT Abnormal ECG When compared with ECG of 24-MAY-2021 13:33, Nonspecific T wave abnormality now evident in Lateral leads Referred By: Nito Solano Electronically Signed By:ARI DICKINSON MD
--- NOTE | 2021-07-23 13:24 | ED.GENADULT ---
HPI - General Adult General Chief complaint: General Medical Stated complaint: low bp low o2 sat per snf Time Seen by Provider: 07/23/21 13:19 Source: patient, EMS, RN notes reviewed and old records reviewed Mode of arrival: EMS Limitations: no limitations History of Present Illness HPI narrative: 71 years old female came in for evaluation of hypotension/hypoxia. Patient is half-way resident found to have blood pressure of 86 over 60, also reportedly patient was hypoxic at 68%, patient otherwise is acting at her normal status, patient did not feel sick, coughing, no abdominal pain, no fever, no chills, no shortness of breath, no abdominal pain. Patient had lunch at the half-way patient still feel hungry with good appetite. Related Data Home Medications Medication Instructions Recorded Confirmed albuterol sulfate 90 mcg/actuation 2 puff INHALATION Q4-6H PRN 01/30/21 03/12/21 aerosol inhaler alprazolam 0.5 mg tablet 0.5 mg PO Q8H PRN 01/30/21 03/12/21 aluminum-mag hydroxide-simethicone 30 ml PO Q4H PRN 01/30/21 03/12/21 200 mg-200 mg-20 mg/5 mL oral susp apixaban 5 mg tablet 5 mg PO BID 01/30/21 03/12/21 buspirone 5 mg tablet 5 mg PO TID 01/30/21 03/12/21 collagenase clostridium histo. 250 1 appl TOPICAL BEDTIME 01/30/21 03/12/21 unit/gram topical ointment (Santyl) duloxetine 60 mg capsule,delayed 60 mg PO DAILY 01/30/21 03/12/21 release gabapentin 100 mg capsule 500 mg PO TID 01/30/21 03/12/21 lamotrigine 100 mg tablet 100 mg PO BEDTIME 01/30/21 03/12/21 levothyroxine 50 mcg tablet 50 mcg PO DAILY@0600 01/30/21 03/12/21 lisinopril 5 mg tablet 2.5 mg PO DAILY 01/30/21 03/12/21 methadone 10 mg tablet 10 mg PO BID 01/30/21 03/12/21 methadone 10 mg tablet 10 mg PO DAILY PRN 01/30/21 03/12/21 polyethylene glycol 3350 17 gram 17 g PO DAILY 01/30/21 03/12/21 oral powder packet (Miralax) risperidone 2 mg tablet 2 mg PO BID 01/30/21 03/12/21 sennosides 8.6 mg tablet (senna) 17.2 mg PO DAILY 01/30/21 03/12/21 tiotropium bromide 2.5 2 puff INHALATION DAILY 01/30/21 03/12/21 mcg/actuation mist for inhalation (Spiriva Respimat) ascorbic acid (vitamin C) 500 mg 500 mg PO DAILY 03/12/21 03/12/21 tablet zinc sulfate 220 mg capsule 220 mg PO DAILY 03/12/21 03/12/21 gabapentin 400 mg capsule 400 mg PO TID 06/25/21 lamotrigine 25 mg tablet 50 mg PO DAILY 06/25/21 lisinopril 2.5 mg tablet 2.5 mg PO DAILY 06/25/21 Previous Rx's Medication Instructions Recorded doxycycline hyclate 100 mg tablet 100 mg PO Q12H 38 Days #0 tab 02/19/21 cephalexin 500 mg capsule 500 mg PO Q6H 7 Days #28 cap 05/24/21 Allergies Allergy/AdvReac Type Severity Reaction Status Date / Time shellfish derived Allergy Unknown Verified 06/25/21 09:47 strawberry Allergy Unknown Verified 06/25/21 09:47 Sulfa (Sulfonamide Allergy Unknown Verified 06/25/21 09:47 Antibiotics) Review of Systems Review of Systems: All other systems are reviewed and are negative Constitutional: Reports as per HPI and Reports no additional constitutional complaints Eyes: Reports as per HPI and Reports no additional eye complaints Reports system reviewed and no additional complaints, except as documented Cardiovascular: Reports as per HPI and Reports no additional cardiovascular complaints Respiratory: Reports as per HPI and Reports no additional respiratory complaints Gastrointestinal: Reports as per HPI and Reports no additional gastrointestinal complaints Genitourinary: Reports no additional female genitourinary complaints Musculoskeletal: Reports no additional musculoskeletal complaints Skin/Breast: Reports system reviewed and no additional complaints, except as docu Psychiatric: Reports no additional psychiatric complaints Endocrine: Reports no additional endocrine complaints Hematologic/Lymphatic: Reports no additional hematologic/lymphatic complaints Allergic/Immunologic: Reports no additional allergic/immunologic complaints Reports system reviewed and no additional complaints, except as documented and Reports Abnormal speech present PMFSH Past Medical History Medical History Acute respiratory failure with hypoxia Alcohol abuse, uncomplicated Alcoholism Anemia in other chronic diseases classified elsewhere Bacteremia Brief psychotic disorder Cellulitis of unspecified part of limb COVID-19 Falls Localized edema Metabolic encephalopathy Non-pressure chronic ulcer of right calf with unspecified severity Opiate dependence Opioid dependence, in remission Other abnormalities of gait and mobility Other chronic pain Personal history of other venous thrombosis and embolism Pulmonary embolus Unsteadiness on feet Social History Social History Household Members: Other Housing: Residential Do you presently have visiting nurse or other home services: No Unable to assess alcohol history related to: Unable to respond and Unknown Patient Tobacco Use Status: Former Tobacco user Tobacco use type: Cigarette Advance Directives: Yes Advance Directives on File: Yes Advance Directives Date on File: 03/14/21 service: No Current occupational status: retired Physical Exam ED Vital Signs: Vital Signs - 24 hr 07/23/21 13:18 07/23/21 13:31 07/23/21 15:22 Temperature 98.8 F Pulse Rate 91 77 Respiratory Rate 18 12 Blood Pressure 96/65 102/68 Pulse Oximetry 77 L 94 96 07/23/21 16:08 Temperature Pulse Rate 86 Respiratory Rate 15 Blood Pressure 100/74 Pulse Oximetry 92 BMI result Body Mass Index 22.1 Vital signs have been reviewed as appeared to be correct. Blood pressure normal. Heart rate normal. Respiration rate normal. Temperature normal. Oxygen saturation normal. Appearance: Alert. Oriented X3. No acute distress. Head: Normal external exam. Normocephalic. Atraumatic. No Lombardi signs noted. No raccoon eyes noted Eyes: PERRLA. EOMI. Conjunctiva and sclera normal. Eyelids normal. ENT: TM's Normal. Pharynx normal. Uvula midline. Moist mucous membranes. No trismus noted. No drooling noted. No muffled voice noted. Neck: Normal inspection. Neck supple. FROM. No adenopathy. Thyroid Normal. No meningeal signs. No neck mass noted. CVS: Normal heart rate and rhythm. Heart sound normal. No murmurs noted. Pulses normal throughout. Respiratory: No respiratory distress. Painless inspiration. Breath sounds normal. No wheezes/rales/rhonchi noted. Chest nontender. No accessory muscle usage noted or decreased air movement noted. Abdomen: Soft and nontender. Bowel sounds normal in all 4 quadrants. No distention noted. No organomegaly noted. No visible injury noted. Back: No CVA tenderness. Full range of motion noted. Skin: Skin warm and dry. Normal skin color. Normal skin turgor. No rashes/lesions/lacerations noted. Extremities: No lower extremity edema. Extremities exhibit normal range of motion. Extremities nontender. Neuro: Oriented X 3. Cranial nerve exam: II-XII are grossly intact No motor deficit. No sensory deficit. Reflexes normal. Course Course Course Narrative: Assessment and plan. 71-year-old female came in from half-way after was found hypoxic and hypotensive, patient otherwise has no symptoms, patient is a vague and poor historian described nonspecific chest pain earlier today which thought to be not significant clinically, elevated troponin which not explaining patient presentation the troponin finding were discussed with Dr. Bear who agreed on the plan. Will keep the patient on full L of nasal cannula oxygen, admit for serial troponin and monitoring blood pressure. Patient received a L of normal saline while in the emergency department, blood pressure has been within normal range. Patient had history of elevated D-dimer today's D-dimer value is within normal Medical Decision Making Lab Data Lab results reviewed: Yes I reviewed the patient's lab results. Result diagrams: 07/23/21 13:45 07/23/21 13:45 Labs: Lab Results 07/23/21 07/23/21 07/23/21 Range/Units 13:45 13:45 13:45 WBC 11.1 H (4.8-10.8) X10*3/uL RBC 4.00 L (4.20-5.50) X10*6/uL Hgb 11.5 L (12.0-16.0) g/dl Hct 38.7 (37.0-47.0) % MCV 96.8 (80.0-98.0) fL MCH 28.8 (27.0-33.0) pg MCHC 29.7 L (31.0-35.0) g/dl RDW 18.8 H (11.0-16.0) % Plt Count 191 D (160-400) X10*3/uL MPV 9.8 (9.4-12.3) fL Immature Gran % (Auto) 0.4 (0.0-0.4) % Neut % (Auto) 77.7 H (45-73) % Lymph % (Auto) 13.8 L (20-40) % Snyder % (Auto) 7.2 (2-11) % Eos % (Auto) 0.4 (0-4) % Baso % (Auto) 0.5 (0-2) % Lymph # (Auto) 1.5 (1.2-4.9) X10*3/uL Snyder # (Auto) 0.8 (0.1-1.2) X10*3/uL Eos # (Auto) 0.0 (0.0-0.4) X10*3/uL Baso # (Auto) 0.1 (0.0-0.2) X10*3/uL Abs Immat Gran (auto) 0.04 H (0.00-0.03) X10*3/uL Absolute Neuts (auto) 8.6 H (2.0-8.3) x10*3/uL Absolute Nucleated RBC 0.000 (0.0-0.012) X10*3/uL Nucleated RBC % (auto) 0.0 (0.0-0.2) /100WBC D-Dimer High Sensitivty NG/ML Sodium 141 (135-145) mmol/L Potassium 4.3 (3.3-5.1) mmol/L Chloride 105 (96-108) mmol/L Carbon Dioxide 30 H (22-29) mmol/L Anion Gap 10 L (12-20) BUN 17 H (9-16) mg/dL Creatinine 0.63 (0.5-1.4) mg/dL Estim Creat Clear Calc 86.8 Estimated GFR > 60 Random Glucose 104 (60-115) mg/dL Lactic Acid 1.3 (0.5-2.0) mmol/L Calcium 7.7 L D (8.4-10.2) mg/dL Total Bilirubin 0.7 (0.0-1.0) mg/dL Direct Bilirubin 0.3 (0.0-0.5) mg/dL AST 24 (5-31) U/L ALT 31 (0-31) U/L Alkaline Phosphatase 119 H D (39-117) U/L Troponin I High Sens (<3.5-17.0) ng/L B-Natriuretic Peptide (<100) pg/mL Total Protein 4.5 L D (6.5-8.0) g/dL Albumin 2.0 L D (3.5-5.0) g/dL Lipase < 4 L (8-78) U/L Influenza Type A (PCR) (Negative) Influenza Type B (PCR) (Negative) RSV RNA Qual (PCR) (Negative) SARS-CoV-2 RNA (RT-PCR) (Negative) 07/23/21 07/23/21 07/23/21 Range/Units 13:45 13:45 14:35 WBC (4.8-10.8) X10*3/uL RBC (4.20-5.50) X10*6/uL Hgb (12.0-16.0) g/dl Hct (37.0-47.0) % MCV (80.0-98.0) fL MCH (27.0-33.0) pg MCHC (31.0-35.0) g/dl RDW (11.0-16.0) % Plt Count (160-400) X10*3/uL MPV (9.4-12.3) fL Immature Gran % (Auto) (0.0-0.4) % Neut % (Auto) (45-73) % Lymph % (Auto) (20-40) % Snyder % (Auto) (2-11) % Eos % (Auto) (0-4) % Baso % (Auto) (0-2) % Lymph # (Auto) (1.2-4.9) X10*3/uL Snyder # (Auto) (0.1-1.2) X10*3/uL Eos # (Auto) (0.0-0.4) X10*3/uL Baso # (Auto) (0.0-0.2) X10*3/uL Abs Immat Gran (auto) (0.00-0.03) X10*3/uL Absolute Neuts (auto) (2.0-8.3) x10*3/uL Absolute Nucleated RBC (0.0-0.012) X10*3/uL Nucleated RBC % (auto) (0.0-0.2) /100WBC D-Dimer High Sensitivty 195 NG/ML Sodium (135-145) mmol/L Potassium (3.3-5.1) mmol/L Chloride (96-108) mmol/L Carbon Dioxide (22-29) mmol/L Anion Gap (12-20) BUN (9-16) mg/dL Creatinine (0.5-1.4) mg/dL Estim Creat Clear Calc Estimated GFR Random Glucose (60-115) mg/dL Lactic Acid (0.5-2.0) mmol/L Calcium (8.4-10.2) mg/dL Total Bilirubin (0.0-1.0) mg/dL Direct Bilirubin (0.0-0.5) mg/dL AST (5-31) U/L ALT (0-31) U/L Alkaline Phosphatase (39-117) U/L Troponin I High Sens 292.6 H* D (<3.5-17.0) ng/L B-Natriuretic Peptide 119 H (<100) pg/mL Total Protein (6.5-8.0) g/dL Albumin (3.5-5.0) g/dL Lipase (8-78) U/L Influenza Type A (PCR) NEGATIVE (Negative) Influenza Type B (PCR) NEGATIVE (Negative) RSV RNA Qual (PCR) NEGATIVE (Negative) SARS-CoV-2 RNA (RT-PCR) NEGATIVE (Negative) 07/23/21 Range/Units 16:44 WBC (4.8-10.8) X10*3/uL RBC (4.20-5.50) X10*6/uL Hgb (12.0-16.0) g/dl Hct (37.0-47.0) % MCV (80.0-98.0) fL MCH (27.0-33.0) pg MCHC (31.0-35.0) g/dl RDW (11.0-16.0) % Plt Count (160-400) X10*3/uL MPV (9.4-12.3) fL Immature Gran % (Auto) (0.0-0.4) % Neut % (Auto) (45-73) % Lymph % (Auto) (20-40) % Snyder % (Auto) (2-11) % Eos % (Auto) (0-4) % Baso % (Auto) (0-2) % Lymph # (Auto) (1.2-4.9) X10*3/uL Snyder # (Auto) (0.1-1.2) X10*3/uL Eos # (Auto) (0.0-0.4) X10*3/uL Baso # (Auto) (0.0-0.2) X10*3/uL Abs Immat Gran (auto) (0.00-0.03) X10*3/uL Absolute Neuts (auto) (2.0-8.3) x10*3/uL Absolute Nucleated RBC (0.0-0.012) X10*3/uL Nucleated RBC % (auto) (0.0-0.2) /100WBC D-Dimer High Sensitivty NG/ML Sodium (135-145) mmol/L Potassium (3.3-5.1) mmol/L Chloride (96-108) mmol/L Carbon Dioxide (22-29) mmol/L Anion Gap (12-20) BUN (9-16) mg/dL Creatinine (0.5-1.4) mg/dL Estim Creat Clear Calc Estimated GFR Random Glucose (60-115) mg/dL Lactic Acid (0.5-2.0) mmol/L Calcium (8.4-10.2) mg/dL Total Bilirubin (0.0-1.0) mg/dL Direct Bilirubin (0.0-0.5) mg/dL AST (5-31) U/L ALT (0-31) U/L Alkaline Phosphatase (39-117) U/L Troponin I High Sens 324.8 H* (<3.5-17.0) ng/L B-Natriuretic Peptide (<100) pg/mL Total Protein (6.5-8.0) g/dL Albumin (3.5-5.0) g/dL Lipase (8-78) U/L Influenza Type A (PCR) (Negative) Influenza Type B (PCR) (Negative) RSV RNA Qual (PCR) (Negative) SARS-CoV-2 RNA (RT-PCR) (Negative) Imaging Data Chest x-ray: Attestation: I personally reviewed and interpreted this imaging study as follows: Radiologist's impression: Mild bibasilar linear atelectasis. A small right pleural effusion cannot be excluded. No definitive focal infiltrate or congestion. ? Discharge Plan Discharge Clinical Impression: Hypoxia, Hypotension Patient Disposition: Admitted As Inpatient Prescriptions: No Action cephalexin 500 mg capsule 500 mg PO Q6H 7 Days Qty: 28 0RF buspirone 5 mg Tablet 5 mg PO TID 0RF sennosides [senna] 8.6 mg Tablet 17.2 mg PO DAILY 0RF polyethylene glycol 3350 [Miralax] 17 gram Powder In Packet 17 g PO DAILY 0RF methadone 10 mg Tablet 10 mg PO DAILY PRN (Reason: OPIOID ADDICATION) 0RF methadone 10 mg Tablet 10 mg PO BID 0RF risperidone 2 mg Tablet 2 mg PO BID 0RF alprazolam 0.5 mg Tablet 0.5 mg PO Q8H PRN (Reason: Anxiety) 0RF levothyroxine 50 mcg Tablet 50 mcg PO DAILY@0600 0RF lisinopril 5 mg Tablet 2.5 mg PO DAILY 0RF gabapentin 100 mg Capsule 500 mg PO TID 0RF alum-mag hydroxide-simeth 200-200-20 mg/5 mL Suspension 30 ml PO Q4H PRN (Reason: GERD) 0RF Santyl 250 unit/gram Ointment 1 appl TOPICAL BEDTIME 0RF albuterol sulfate 90 mcg/actuation Hfa Aerosol Inhaler 2 puff INHALATION Q4-6H PRN (Reason: Wheezing) 0RF lamotrigine 100 mg Tablet 100 mg PO BEDTIME 0RF duloxetine 60 mg Capsule,Delayed Release(Dr/Ec) 60 mg PO DAILY 0RF Spiriva Respimat 2.5 mcg/actuation Mist 2 puff INHALATION DAILY 0RF apixaban 5 mg Tablet 5 mg PO BID 0RF doxycycline hyclate 100 mg Tablet 100 mg PO Q12H 38 Days Qty: 0 0RF Rx Instructions: X 38 DAYS, FINSIHED 03/29/2021 ascorbic acid (vitamin C) 500 mg Tablet 500 mg PO DAILY 0RF zinc sulfate 220 mg Capsule 220 mg PO DAILY 0RF gabapentin 400 mg capsule 400 mg PO TID 0RF lisinopril 2.5 mg tablet 2.5 mg PO DAILY 0RF lamotrigine 25 mg tablet 50 mg PO DAILY 0RF
[2021-07-23] MEDS: 0.9 % Sodium Chloride 1,000 ML 999 ML IV (13:30)
[2021-07-23 13:53] LABS: MANUAL DIFF FLAG NO
[2021-07-23 13:58] LABS: Basophils Absolute Auto 0.1 X10*3/uL (0.0-0.2); Basophils Percent Auto 0.5 % (0-2); Eosinophils Percent Auto 0.4 % (0-4); Hematocrit 38.7 % (37.0-47.0); Hemoglobin 11.5 g/dl (12.0-16.0); Imm Gran Abs Auto 0.04 X10*3/uL (0.00-0.03); Imm Gran Pct Auto 0.4 % (0.0-0.4); Lymphocytes Absolute Auto 1.5 X10*3/uL (1.2-4.9); Lymphocytes Percent Auto 13.8 % (20-40); Mean Corpuscular HGB Conc 29.7 g/dl (31.0-35.0); Mean Corpuscular Hemoglobin 28.8 pg (27.0-33.0); Mean Corpuscular Volume 96.8 fL (80.0-98.0); Mean Platelet Volume 9.8 fL (9.4-12.3); Monocytes Absolute Auto 0.8 X10*3/uL (0.1-1.2); Monocytes Percent Auto 7.2 % (2-11); Neutrophils Absolute Auto 8.6 x10*3/uL (2.0-8.3); Neutrophils Percent Auto 77.7 % (45-73); Platelet Count 191 X10*3/uL (160-400); Red Cell Distribution Width 18.8 % (11.0-16.0); White Blood Count 11.1 X10*3/uL (4.8-10.8)
[2021-07-23 14:11] LABS: D Dimer High Sensitivity 195 NG/ML; Lactic Acid 1.3 mmol/L (0.5-2.0)
[2021-07-23 14:19] LABS: Alanine Aminotransferase 31 U/L (0-31); Alkaline Phosphatase 119 U/L (39-117); Anion Gap 10 (12-20); Aspartate Amino Transferase 24 U/L (5-31); Bilirubin Direct 0.3 mg/dL (0.0-0.5); Bilirubin Total 0.7 mg/dL (0.0-1.0); Blood Urea Nitrogen 17 mg/dL (9-16); Calcium 7.7 mg/dL (8.4-10.2); Carbon Dioxide 30 mmol/L (22-29); Chloride 105 mmol/L (96-108); Creatinine Clr Calc Pharmacy 86.8; Estimated Glomerular Filt Rate > 60; Glucose Random 104 mg/dL (60-115); Lipase < 4 U/L (8-78); Potassium 4.3 mmol/L (3.3-5.1); Sodium 141 mmol/L (135-145); Total Protein 4.5 g/dL (6.5-8.0)
[2021-07-23 14:29] LABS: B Type Natriuretic Peptide 119 pg/mL (<100); Troponin-I High Sensitivity 292.6 ng/L (<3.5-17.0)
[2021-07-23 15:26] LABS: Influenza A PCR NEGATIVE (Negative); Influenza B PCR NEGATIVE (Negative); Resp Syncy Virus RNA Qual PCR NEGATIVE (Negative); SARS COV2 PCR INHOUSE NEGATIVE (Negative)
[2021-07-23 17:30] LABS: Troponin-I High Sensitivity 324.8 ng/L (<3.5-17.0)
--- NOTE | 2021-07-23 19:41 | PC.NURSE ---
pt requesting fluids, pt given apple juice, pt dropped apple juice on self. pt asking why she has been dropping things for the past 2 days, pt assisted with drinking fluids. resting in bed watching tv.
--- NOTE | 2021-07-23 20:10 | PC.NURSE ---
pt yelling out for nurse and doctor repeatedly, when asked what is wrong, pt states everyone is ignoring me. pt is told that this isnt true, and was asked what she needs, if she is in pain, needs BR. pt unable to state what she needs. pt reassured. call ayala in reach
--- NOTE | 2021-07-23 20:41 | PHA.MEDREC ---
Pharmacy Consult ? Medication Reconciliation Pharmacy has completed the medication reconciliation. List obtained from [facility]
[2021-07-23] MEDS: Gabapentin 100 MG CAPSULE PO (21:37)
[2021-07-23] MEDS: lamoTRIgine 25 MG TABLET 50 MG PO (21:37)
[2021-07-23] MEDS: Gabapentin 400 MG CAPSULE PO (21:37)
[2021-07-23] MEDS: busPIRone HCl 5 MG TABLET PO (21:37)
--- NOTE | 2021-07-23 21:40 | PC.NURSE ---
pt yelling out repeatedly for the nurse, that she needs help, when pt asked what is wrong, pt again states that people are ignoring her. pt reassured with minimal effect
--- NOTE | 2021-07-23 21:40 | PC.NURSE ---
pt medicated per Apr. Notified Mechanical Design Technician
--- NOTE | 2021-07-23 23:19 | PC.NURSE ---
pt is asleep at this time, call ayala in reach
[2021-07-24] MEDS: 0.9 % Sodium Chloride Flush 3 ML SYRINGE IVFLUSH ×4 (00:35→23:48)
[2021-07-24 02:22] VITALS: PULSE 52; O2SAT 92
--- NOTE | 2021-07-24 03:24 | PC.NURSE ---
reported critical lab to protection officer of trop of [phone]
--- NOTE | 2021-07-24 04:01 | PC.NURSE ---
pt awoke, repeatedly saying , please i need a drink , pt given apple juice and water. pt in no distress
[2021-07-24 04:55] LABS: MANUAL DIFF FLAG NO
[2021-07-24 04:59] LABS: Basophils Absolute Auto 0.1 X10*3/uL (0.0-0.2); Basophils Percent Auto 0.6 % (0-2); Eosinophils Absolute Auto 0.1 X10*3/uL (0.0-0.4); Eosinophils Percent Auto 1.2 % (0-4); Hematocrit 38.4 % (37.0-47.0); Hemoglobin 11.7 g/dl (12.0-16.0); Imm Gran Abs Auto 0.05 X10*3/uL (0.00-0.03); Imm Gran Pct Auto 0.5 % (0.0-0.4); Lymphocytes Absolute Auto 1.9 X10*3/uL (1.2-4.9); Lymphocytes Percent Auto 19.8 % (20-40); Mean Corpuscular HGB Conc 30.5 g/dl (31.0-35.0); Mean Corpuscular Hemoglobin 29.5 pg (27.0-33.0); Mean Corpuscular Volume 96.7 fL (80.0-98.0); Mean Platelet Volume 10.1 fL (9.4-12.3); Monocytes Absolute Auto 0.8 X10*3/uL (0.1-1.2); Monocytes Percent Auto 8.6 % (2-11); Neutrophils Absolute Auto 6.5 x10*3/uL (2.0-8.3); Neutrophils Percent Auto 69.3 % (45-73); Platelet Count 184 X10*3/uL (160-400); Red Blood Count 3.97 X10*6/uL (4.20-5.50); Red Cell Distribution Width 18.8 % (11.0-16.0); White Blood Count 9.4 X10*3/uL (4.8-10.8)
[2021-07-24 05:04] VITALS: BP 106/64; PULSE 80; RESP 12; TEMP 36.6; O2SAT 93
[2021-07-24] MEDS: Levothyroxine Sodium 50 MCG TABLET PO (05:09)
[2021-07-24 05:15] LABS: Anion Gap 10 (12-20); Blood Urea Nitrogen 15 mg/dL (9-16); Calcium 7.8 mg/dL (8.4-10.2); Carbon Dioxide 30 mmol/L (22-29); Chloride 106 mmol/L (96-108); Creatinine Clr Calc Pharmacy 97.7; Estimated Glomerular Filt Rate > 60; Glucose Random 70 mg/dL (60-115); Potassium 4.1 mmol/L (3.3-5.1); Sodium 142 mmol/L (135-145)
--- NOTE | 2021-07-24 05:39 | PM.IMHP ---
History of Present Illness Date of Service: 07/23/21 Chief Complaint: not feeling well 71-year-old female past medical history of PA D, DVT, PE, chronic anemia, alcoholism, opiate dependence, who presents to the hospital with findings of hypoxia and hypotension. [facility] after being noticed to be hypotensive and have hypoxia in the 80s. Patient is not a good historian, answers questions but very slow, does not give much details. Tells me that she has difficulty gathering her thoughts. Patient reports that she has not been eating or drinking well for the past few days, she has had a cough for the past few days, denies any chest pain, no abdominal pain, no nausea or vomiting, no diarrhea constipation, no urinary symptoms and no lower extremity edema. On arrival to the ED patient was found to have oxygen level of 77% on room air. Placed on nasal cannula now satting and 2-90%. Vitals otherwise within normal Labs are significant for WBC count of 9.4, hemoglobin of 11.7, troponin peaked to 324 but trended down, with no delta, BNP of 119, AST of 24, ALT of 31, albumin of 2.0, lipase less than 4. Initial x-ray showed mild bibasilar linear atelectasis, small right pleural effusion cannot be excluded, given the significant hypoxia a chest CT was obtained which showed patchy, tree-in-bud type nodularity within much of the left lung as well as few patchy regions of ground-glass opacity in the right upper lobe, overall favoring infectious/inflammatory. Chest CT also showed common bile duct dilation. Patient will be admitted for further management Review of Systems Review of Systems: Yes all other systems are reviewed and are negative [facility] Medical History Acute respiratory failure with hypoxia Alcohol abuse, uncomplicated Alcoholism Anemia in other chronic diseases classified elsewhere Bacteremia Brief psychotic disorder Cellulitis of unspecified part of limb COVID-19 Falls Localized edema Metabolic encephalopathy Non-pressure chronic ulcer of right calf with unspecified severity Opiate dependence Opioid dependence, in remission Other abnormalities of gait and mobility Other chronic pain Personal history of other venous thrombosis and embolism Pulmonary embolus Unsteadiness on feet Social History Household Members: Other Housing: [facility] Do you presently have visiting nurse or other home services: No Unable to assess alcohol history related to: Unable to respond and Unknown Patient Tobacco Use Status: Former Tobacco user Tobacco use type: Cigarette Advance Directives: Yes Advance Directives on File: Yes Advance Directives Date on File: 03/14/21 service: No Current occupational status: retired Meds Allergies Allergy/AdvReac Type Severity Reaction Status Date / Time shellfish derived Allergy Unknown Verified 06/25/21 09:47 strawberry Allergy Unknown Verified 06/25/21 09:47 Sulfa (Sulfonamide Allergy Unknown Verified 06/25/21 09:47 Antibiotics) Active Medications: Current Medications Acetaminophen (Acetaminophen 325 Mg Tablet) 650 mg PO Q6H PRN PRN Reason: Pain, Mild (Pain Scale 1-3) Al Hydroxide/Mg Hydroxide (Magnesium Hydrox/Alum Hydrox 30 Ml Oral.Susp) 30 ml PO Q4H PRN PRN Reason: GERD Albuterol Sulfate (Albuterol Sulfate 90 Mcg 8 Gm Inhaler) 2 puff INHALE Q4H PRN PRN Reason: copd Apixaban (Apixaban 5 Mg Tablet) 5 mg PO BID [facility] Buspirone HCl (Buspirone Hcl 5 Mg Tablet) 5 mg PO TID [facility] Last Admin: 07/23/21 21:37 Dose: 5 mg Documented by: Docusate Sodium (Docusate Sodium 100 Mg Capsule) 100 mg PO DAILY PRN PRN Reason: Constipation Duloxetine HCl (Duloxetine Hcl 60 Mg Capsule.Dr) 60 mg PO DAILY [facility] Gabapentin (Gabapentin 100 Mg Capsule) 100 mg PO TID [facility] Last Admin: 07/23/21 21:37 Dose: 100 mg Documented by: Gabapentin (Gabapentin 400 Mg Capsule) 400 mg PO TID [facility] Last Admin: 07/23/21 21:37 Dose: 400 mg Documented by: Lamotrigine (Lamotrigine 25 Mg Tablet) 50 mg PO BEDTIME [facility] Last Admin: 07/23/21 21:37 Dose: 50 mg Documented by: Levothyroxine Sodium (Levothyroxine Sodium 50 Mcg Tablet) 50 mcg PO DAILY@0600 [facility] Last Admin: 07/24/21 05:09 Dose: 50 mcg Documented by: Lisinopril (Lisinopril 2.5 Mg Tablet) 2.5 mg PO DAILY [facility]; Protocol Methadone HCl (Methadone Hcl 10 Mg Tablet) 10 mg PO BID [facility] Methadone HCl (Methadone Hcl 10 Mg Tablet) 10 mg PO DAILY PRN PRN Reason: chronic pain Ondansetron HCl (Ondansetron Hcl 4 Mg/2 Ml Vial) 4 mg IVPUSH Q8H PRN PRN Reason: Nausea and Vomiting Pharmacy Consult (Consult Rx Perform Med Rec) 1 each MISCELLANE ONCE PRN PRN Reason: Consult order Polyethylene Glycol (Polyethylene Glycol 3350 17 Gm Powd.Pack) 17 gm PO DAILY [facility] Risperidone (Risperidone 2 Mg Tablet) 2 mg PO BID [facility] Sodium Chloride (0.9 % Sodium Chloride Flush 3 Ml Syringe) 3 ml IVFLUSH QSHIFT [facility] Last Admin: 07/24/21 00:35 Dose: 3 ml Documented by: Tiotropium [place] (Tiotropium [place] 18 Mcg Cap.W.Dev) 2 puff INHALE RDAILY [facility] Home Medications Medication Instructions Recorded Confirmed Last Taken Type albuterol sulfate 90 mcg/actuation 2 puff INHALATION Q4H PRN 01/30/21 07/23/21 Unknown History aerosol inhaler aluminum-mag hydroxide-simethicone 30 ml PO Q4H PRN 01/30/21 07/23/21 Unknown History 200 mg-200 mg-20 mg/5 mL oral susp apixaban 5 mg tablet 5 mg PO BID 01/30/21 07/23/21 07/23/21 History buspirone 5 mg tablet 5 mg PO TID 01/30/21 07/23/21 07/23/21 History duloxetine 60 mg capsule,delayed 60 mg PO DAILY 01/30/21 07/23/21 07/23/21 History release gabapentin 100 mg capsule 100 mg PO TID 01/30/21 07/23/21 07/23/21 History levothyroxine 50 mcg tablet 50 mcg PO DAILY@0600 01/30/21 07/23/21 07/23/21 History lisinopril 5 mg tablet 2.5 mg PO DAILY 01/30/21 07/23/21 07/23/21 History methadone 10 mg tablet 10 mg PO BID 01/30/21 07/23/21 07/23/21 History methadone 10 mg tablet 10 mg PO DAILY PRN 01/30/21 07/23/21 Unknown History polyethylene glycol 3350 17 gram 17 g PO DAILY 01/30/21 07/23/21 07/23/21 History oral powder packet (Miralax) risperidone 2 mg tablet 2 mg PO BID 01/30/21 07/23/21 07/23/21 History tiotropium bromide 2.5 2 puff INHALATION DAILY 01/30/21 07/23/21 07/23/21 History mcg/actuation mist for inhalation (Spiriva Respimat) gabapentin 400 mg capsule 400 mg PO TID 06/25/21 07/23/21 07/23/21 History lamotrigine 25 mg tablet 50 mg PO BEDTIME 06/25/21 07/23/21 07/22/21 History ondansetron HCl 4 mg tablet 4 mg PO Q8H PRN 07/23/21 07/23/21 Unknown History Physical Exam Vital Signs and Narrative: Vital Signs: Last Vital Signs Temp 97.9 F 07/24/21 05:04 Pulse 80 07/24/21 05:04 Resp 12 07/24/21 05:04 BP 106/64 07/24/21 05:04 Pulse Ox 93 07/24/21 05:04 BMI result Body Mass Index 22.1 Const: Other: Slightly confused, answers questions appropriately but slow to respond, does not give much history or details General: cooperative and no acute distress Eyes: General: appearance normal, both eyes and all related structures Resp: Other: Crackles bilaterally Effort & Inspection: normal respiratory effort Auscultation: clear to auscultation bilaterally Cardio: Rate: regular rate Rhythm: regular rhythm GI: Other: Abdomen is soft, nontender, no guarding or rebound Palpation (GI): Soft to palpation Auscultation: normal bowel sounds Skin: General skin exam: no rashes or lesions noted Neuro: Cognition (Neuro): normal cognition Extrem: General: Yes normal to inspection and Yes no pedal edema Results Labs CBC and Chem 7: 07/24/21 04:48 07/24/21 04:48 Labs: Laboratory Results - last 24 hr 07/23/21 07/23/21 07/23/21 13:45 13:45 13:45 MCV 96.8 MCH 28.8 MCHC 29.7 L RDW 18.8 H Plt Count 191 D MPV 9.8 Immature Gran % (Auto) 0.4 Neut % (Auto) 77.7 H Lymph % (Auto) 13.8 L [place] % (Auto) 7.2 Eos % (Auto) 0.4 Baso % (Auto) 0.5 Lymph # (Auto) 1.5 [place] # (Auto) 0.8 Eos # (Auto) 0.0 Baso # (Auto) 0.1 Abs Immat Gran (auto) 0.04 H Absolute Neuts (auto) 8.6 H Absolute Nucleated RBC 0.000 Nucleated RBC % (auto) 0.0 D-Dimer High Sensitivty Anion Gap 10 L Estim Creat Clear Calc 86.8 Estimated GFR > 60 Random Glucose 104 Lactic Acid 1.3 Calcium 7.7 L D Total Bilirubin 0.7 Direct Bilirubin 0.3 AST 24 ALT 31 Alkaline Phosphatase 119 H D Troponin I High Sens B-Natriuretic Peptide Total Protein 4.5 L D Albumin 2.0 L D Lipase < 4 L Influenza Type A (PCR) Influenza Type B (PCR) RSV RNA Qual (PCR) SARS-CoV-2 RNA (RT-PCR) 07/23/21 07/23/21 07/23/21 13:45 13:45 14:35 MCV MCH MCHC RDW Plt Count MPV Immature Gran % (Auto) Neut % (Auto) Lymph % (Auto) [place] % (Auto) Eos % (Auto) Baso % (Auto) Lymph # (Auto) [place] # (Auto) Eos # (Auto) Baso # (Auto) Abs Immat Gran (auto) Absolute Neuts (auto) Absolute Nucleated RBC Nucleated RBC % (auto) D-Dimer High Sensitivty 195 Anion Gap Estim Creat Clear Calc Estimated GFR Random Glucose Lactic Acid Calcium Total Bilirubin Direct Bilirubin AST ALT Alkaline Phosphatase Troponin I High Sens 292.6 H* D B-Natriuretic Peptide 119 H Total Protein Albumin Lipase Influenza Type A (PCR) NEGATIVE Influenza Type B (PCR) NEGATIVE RSV RNA Qual (PCR) NEGATIVE SARS-CoV-2 RNA (RT-PCR) NEGATIVE 07/23/21 07/23/21 07/24/21 16:44 21:42 04:48 MCV 96.7 MCH 29.5 MCHC 30.5 L RDW 18.8 H Plt Count 184 MPV 10.1 Immature Gran % (Auto) 0.5 H Neut % (Auto) 69.3 Lymph % (Auto) 19.8 L [place] % (Auto) 8.6 Eos % (Auto) 1.2 Baso % (Auto) 0.6 Lymph # (Auto) 1.9 [place] # (Auto) 0.8 Eos # (Auto) 0.1 Baso # (Auto) 0.1 Abs Immat Gran (auto) 0.05 H Absolute Neuts (auto) 6.5 Absolute Nucleated RBC 0.000 Nucleated RBC % (auto) 0.0 D-Dimer High Sensitivty Anion Gap Estim Creat Clear Calc Estimated GFR Random Glucose Lactic Acid Calcium Total Bilirubin Direct Bilirubin AST ALT Alkaline Phosphatase Troponin I High Sens 324.8 H* 273.0 H* B-Natriuretic Peptide Total Protein Albumin Lipase Influenza Type A (PCR) Influenza Type B (PCR) RSV RNA Qual (PCR) SARS-CoV-2 RNA (RT-PCR) 07/24/21 04:48 MCV MCH MCHC RDW Plt Count MPV Immature Gran % (Auto) Neut % (Auto) Lymph % (Auto) [place] % (Auto) Eos % (Auto) Baso % (Auto) Lymph # (Auto) [place] # (Auto) Eos # (Auto) Baso # (Auto) Abs Immat Gran (auto) Absolute Neuts (auto) Absolute Nucleated RBC Nucleated RBC % (auto) D-Dimer High Sensitivty Anion Gap 10 L Estim Creat Clear Calc 97.7 Estimated GFR > 60 Random Glucose 70 Lactic Acid Calcium 7.8 L Total Bilirubin Direct Bilirubin AST ALT Alkaline Phosphatase Troponin I High Sens B-Natriuretic Peptide Total Protein Albumin Lipase Influenza Type A (PCR) Influenza Type B (PCR) RSV RNA Qual (PCR) SARS-CoV-2 RNA (RT-PCR) Imaging Radiologist's Impressions: Impressions Chest X-Ray 07/23/21 14:03 IMPRESSION: Mild bibasilar linear atelectasis. A small right pleural effusion cannot be excluded. No definitive focal infiltrate or congestion. Chest CT 07/23/21 22:45 IMPRESSION: 1. Patchy, tree-in-bud type nodularity within much of the left lung as well as a few patchy regions of groundglass opacity in the right upper lobe, overall favoring an infectious/inflammatory etiology including regions of bronchiolitis. Detailed parenchymal evaluation is limited due to respiratory motion artifact; consider follow-up CT in 3 months to assess for resolution. 2. Dense regions of opacity in the lingula, right middle lobe, and bilateral lower lobes likely at least partially due to atelectasis, though some superimposed consolidation is difficult to exclude. 3. Cardiomegaly. 4. Common bile duct appears dilated in the upper abdomen; this may be further assessed with ultrasound and liver function tests as clinically warranted. Head CT 07/23/21 22:45 IMPRESSION: No acute intracranial pathology. Assessment and Plan (1) Acute respiratory failure with hypoxia: Status: Acute (2) Pneumonia: Status: Acute (3) Dilated cbd, acquired: Status: Acute (4) Elevated troponin: Status: Acute Plan This is a 71-year-old female past medical history as above who presents to the hospital after being [facility]. # acute hypoxic respiratory failure - secondary to pneumonia - O2 of 70s on room air on arrival - chest CT shows extensive infiltrates - patient otherwise hemodynamically stable - will start her on IV antibiotic - monitor respiratory status # pneumonia - likely community-acquired - COVID-19 negative - chest CT as above - will treat with IV antibiotic - follow cultures # dilated CBD seen on CT - patient has no abdominal pain no rebound or guarding, no elevated LFTs - will obtain abdominal ultrasound as rectum # elevated troponin - likely secondary to demand in the setting of hypoxia - patient denies any chest pain - no EKG suggestive of ACS - monitor # history of PE - continue apixaban # hypertension - stable - continue home medication # hypothyroidism - continue levothyroxine DVT prophylaxis: Apixaban Given significant hypoxia patient will need a minimum of 2 night hospital stay for further management and monitor Quality Stroke Does the patient have a stroke diagnosis?: No VTE Prior VTE?: No VTE Risk Level:: Medical - moderate - high VTE Device Contraindication: Treatment Not Indicated VTE Drug Contraindication: N/A - Med Ordered
[2021-07-24] MEDS: cefTRIAXone sodium 1 GM in 0.9 % Sodium Chloride 50 ML IV (06:21)
[2021-07-24] MEDS: Azithromycin 500 MG in 0.9 % Sodium Chloride 250 ML 125 MG IV (08:22)
[2021-07-24] MEDS: risperiDONE 2 MG TABLET PO ×2 (08:22→20:45)
[2021-07-24] MEDS: lisinopriL 2.5 MG TABLET PO (08:22)
[2021-07-24] MEDS: DULoxetine HCl 60 MG CAPSULE.DR PO (08:22)
[2021-07-24] MEDS: busPIRone HCl 5 MG TABLET PO ×3 (08:23→20:45)
[2021-07-24] MEDS: Gabapentin 400 MG CAPSULE PO ×3 (08:23→21:02)
[2021-07-24] MEDS: Apixaban 5 MG TABLET PO ×2 (08:23→20:45)
[2021-07-24] MEDS: Gabapentin 100 MG CAPSULE PO ×3 (08:23→20:45)
[2021-07-24] MEDS: methADONE HCl 10 MG TABLET PO ×3 (08:34→21:01)
[2021-07-24 08:50] VITALS: BP 109/70; PULSE 85; RESP 16; O2SAT 96
--- NOTE | 2021-07-24 10:25 | MHC.CM.PN ---
Addendum entered by Buffy Villela 07/24/21 10:38: CM CALLED PTS SISTER, RODRIGUE LAROSE [phone] WHO REPORTS SHE WAS AWARE OF PTS ADMISSION BECAUSE [facility] CALLED HER. SHE REPORTS SHE IS UNSURE WHAT IS GOING ON WITH THE PT MEDICALLY THOUGH AND REQUESTS A CALL FROM PTS PROVIDER. REQUEST SENT TO PROVIDER Original Note: PT REPORTS SHE CAME IN FROM [facility], SHE REPORTS SHE BELIEVES SHE IS NOW LTC THERE. PT REPORTS SHE USES A WHEEL CHAIR, [employer] PRN DEPENDING ON HOW SHE IS FEELING PT HAS A MOLST AND HCP ON FILE PT REPORTS SHE IS COVID-19 VACCINATED WITH [facility] PCP: SAMANTHA BUENO [facility] DELIVERED, COPY SENT TO [facility] CURRENT DC PLAN IS RETURN TO [facility]IA [facility] PT ASKS THAT CM CALL HER SISTER, RODRIGUE, TO ENURE SHE IS AWARE OF INPT ADMISSION CM WILL CALL HER LATER IN THE DAY.
[2021-07-24 12:45] VITALS: BP 113/61; PULSE 83; RESP 11; TEMP 36.6; O2SAT 100
--- NOTE | 2021-07-24 15:26 | P.PNIM_ITS ---
Subjective Subjective Date of Service: 07/24/21 Interval History: the patient was seen and evaluated this morning Laying in bed, feels Improvement since admission still reporting shortness of breath No reported other overnight events. Systemic review: No fever, chills or weakness No chest pain, palpitation but has edema reporting shortness of breath or coughing No abdominal pain, nausea or vomiting No urinary symptoms No any rash or wounds Physical Exam Vital Signs: Vital Signs: Last Vital Signs Temp 97.9 F 07/24/21 12:45 Pulse 83 07/24/21 12:45 Resp 11 L 07/24/21 12:45 BP 113/61 07/24/21 12:45 Pulse Ox 100 07/24/21 12:45 BMI result Body Mass Index 22.1 Const: Other: Constitutional : Alert, oriented, not in distress Neck : Normal inspection, Supple Cardiovascular : RRR, no JVP, no lower extremity edema Respiratory : decrease bilateral air entry, mainly left side basal crackles with no wheezes noted Gastrointestinal: soft, lax, Normal bowel sounds, Non tender Skin : Warm, Dry Neurological : Alert & oriented x3, No focal deficit , CN 2-12 within normal Objective Data Active Medications Acetaminophen (Acetaminophen 325 Mg Tablet) 650 mg PO Q6H PRN PRN Reason: Pain, Mild (Pain Scale 1-3) Al Hydroxide/Mg Hydroxide (Magnesium Hydrox/Alum Hydrox 30 Ml Oral.Susp) 30 ml PO Q4H PRN PRN Reason: GERD Albuterol Sulfate (Albuterol Sulfate 90 Mcg 8 Gm Inhaler) 2 puff INHALE Q4H PRN PRN Reason: copd Apixaban (Apixaban 5 Mg Tablet) 5 mg PO BID [facility] Last Admin: 07/24/21 08:23 Dose: 5 mg Documented by: KELVIN Buspirone HCl (Buspirone Hcl 5 Mg Tablet) 5 mg PO TID [facility] Last Admin: 07/24/21 08:23 Dose: 5 mg Documented by: KELVIN Docusate Sodium (Docusate Sodium 100 Mg Capsule) 100 mg PO DAILY PRN PRN Reason: Constipation Duloxetine HCl (Duloxetine Hcl 60 Mg Capsule.) 60 mg PO DAILY [facility] Last Admin: 07/24/21 08:22 Dose: 60 mg Documented by: KELVIN Gabapentin (Gabapentin 100 Mg Capsule) 100 mg PO TID [facility] Last Admin: 07/24/21 08:23 Dose: 100 mg Documented by: KELVIN Gabapentin (Gabapentin 400 Mg Capsule) 400 mg PO TID [facility] Last Admin: 07/24/21 08:23 Dose: 400 mg Documented by: KELVIN Azithromycin 500 mg/ Sodium (Chloride) 250 mls @ 125 mls/hr IV Q24H [facility] Last Admin: 07/24/21 08:22 Dose: 125 mls/hr Documented by: KELVIN Ceftriaxone Sodium 1 gm/ (Sodium Chloride) 50 mls @ 100 mls/hr IV Q24H [facility] Last Infusion: 07/24/21 08:07 Dose: 0 mls/hr Documented by: KELVIN Lamotrigine (Lamotrigine 25 Mg Tablet) 50 mg PO BEDTIME [facility] Last Admin: 07/23/21 21:37 Dose: 50 mg Documented by: GARRISON Levothyroxine Sodium (Levothyroxine Sodium 50 Mcg Tablet) 50 mcg PO DAILY@0600 [facility] Last Admin: 07/24/21 05:09 Dose: 50 mcg Documented by: MICHEL Lisinopril (Lisinopril 2.5 Mg Tablet) 2.5 mg PO DAILY [facility]; Protocol Last Admin: 07/24/21 08:22 Dose: 2.5 mg Documented by: KELVIN Methadone HCl (Methadone Hcl 10 Mg Tablet) 10 mg PO BID [facility] Last Admin: 07/24/21 08:34 Dose: 10 mg Documented by: KELVIN Methadone HCl (Methadone Hcl 10 Mg Tablet) 10 mg PO DAILY PRN PRN Reason: chronic pain Ondansetron HCl (Ondansetron Hcl 4 Mg/2 Ml Vial) 4 mg IVPUSH Q8H PRN PRN Reason: Nausea and Vomiting Pharmacy Consult (Consult Rx Perform Med Rec) 1 each MISCELLANE ONCE PRN PRN Reason: Consult order Polyethylene Glycol (Polyethylene Glycol 3350 17 Gm Powd.Pack) 17 gm PO DAILY [facility] Last Admin: 07/24/21 08:27 Dose: Not Given Documented by: KELVIN Non-Admin Reason: Patient Refused Risperidone (Risperidone 2 Mg Tablet) 2 mg PO BID [facility] Last Admin: 07/24/21 08:22 Dose: 2 mg Documented by: KELVIN Sodium Chloride (0.9 % Sodium Chloride Flush 3 Ml Syringe) 3 ml IVFLUSH QSHIFT [facility] Last Admin: 07/24/21 08:24 Dose: 3 ml Documented by: KELVIN Tiotropium [place] (Tiotropium [place] 18 Mcg Cap.W.Dev) 2 puff INHALE RDAILY [facility] Last Admin: 07/24/21 07:28 Dose: Not Given Documented by: ANGEL Non-Admin Reason: Med Not Available Labs CBC & Chem 7: 07/24/21 04:48 07/24/21 04:48 Labs: Laboratory Results - last 24 hr 07/23/21 07/23/21 07/23/21 14:35 16:44 21:42 MCV MCH MCHC RDW Plt Count MPV Immature Gran % (Auto) Neut % (Auto) Lymph % (Auto) [place] % (Auto) Eos % (Auto) Baso % (Auto) Lymph # (Auto) [place] # (Auto) Eos # (Auto) Baso # (Auto) Abs Immat Gran (auto) Absolute Neuts (auto) Absolute Nucleated RBC Nucleated RBC % (auto) Anion Gap Estim Creat Clear Calc Estimated GFR Random Glucose Calcium Troponin I High Sens 324.8 H* 273.0 H* Influenza Type A (PCR) NEGATIVE Influenza Type B (PCR) NEGATIVE RSV RNA Qual (PCR) NEGATIVE SARS-CoV-2 RNA (RT-PCR) NEGATIVE 07/24/21 07/24/21 04:48 04:48 MCV 96.7 MCH 29.5 MCHC 30.5 L RDW 18.8 H Plt Count 184 MPV 10.1 Immature Gran % (Auto) 0.5 H Neut % (Auto) 69.3 Lymph % (Auto) 19.8 L [place] % (Auto) 8.6 Eos % (Auto) 1.2 Baso % (Auto) 0.6 Lymph # (Auto) 1.9 [place] # (Auto) 0.8 Eos # (Auto) 0.1 Baso # (Auto) 0.1 Abs Immat Gran (auto) 0.05 H Absolute Neuts (auto) 6.5 Absolute Nucleated RBC 0.000 Nucleated RBC % (auto) 0.0 Anion Gap 10 L Estim Creat Clear Calc 97.7 Estimated GFR > 60 Random Glucose 70 Calcium 7.8 L Troponin I High Sens Influenza Type A (PCR) Influenza Type B (PCR) RSV RNA Qual (PCR) SARS-CoV-2 RNA (RT-PCR) Assessment and Plan (1) Dilated cbd, acquired: Status: Acute (2) Pneumonia: Status: Acute (3) Acute respiratory failure with hypoxia: Status: Acute (4) Hypoxia: Status: Acute Plan This is a 71-year-old female past medical history as above who presents to the hospital [facility]. # acute hypoxic respiratory failure # secondary to pneumonia wean down oxygen as tolerated chest CT shows extensive infiltrates, will need repeat in few months Start incentive spirometry continue IV antibiotic pending cultures # dilated CBD seen on CT patient has no abdominal pain no rebound or guarding, no elevated LFTs if any new pain consider ultrasound # elevated troponin likely secondary to demand in the setting of hypoxia denies any chest pain no EKG suggestive of ACS # history of PE continue apixaban # hypertension stable continue home medication # hypothyroidism continue levothyroxine DVT prophylaxis: Apixaban patient will need overnight hospital stay to continue treatment for pneumonia pending final blood cultures and weaning her off the oxygen to prevent further decompensation in 2 hypoxic respiratory failure. Quality Stroke Does the patient have a stroke diagnosis?: No VTE Prior VTE?: No VTE Risk Level:: Medical - moderate - high VTE Device Contraindication: Treatment Not Indicated VTE Drug Contraindication: N/A - Med Ordered
[2021-07-24] MEDS: Furosemide 20 MG/2 ML VIAL IVPUSH (16:42)
[2021-07-24] MEDS: lamoTRIgine 25 MG TABLET 50 MG PO (20:45)
[2021-07-24 21:55] VITALS: BP 139/82; PULSE 83; RESP 12; O2SAT 94
[2021-07-24 23:36] VITALS: BP 99/57; PULSE 72; RESP 9; O2SAT 100
[2021-07-25] VITALS (7 sets, daily range): BP systolic 102–125; BP diastolic 68–76; PULSE 61–86; RESP 10–18; TEMP 36.4–36.9; O2SAT 92–98
[2021-07-25 05:05] LABS: Hematocrit 33.5 % (37.0-47.0); Hemoglobin 10.2 g/dl (12.0-16.0); Mean Corpuscular HGB Conc 30.4 g/dl (31.0-35.0); Mean Corpuscular Hemoglobin 29.1 pg (27.0-33.0); Mean Corpuscular Volume 95.4 fL (80.0-98.0); Mean Platelet Volume 9.8 fL (9.4-12.3); Platelet Count 168 X10*3/uL (160-400); Red Blood Count 3.51 X10*6/uL (4.20-5.50); Red Cell Distribution Width 18.7 % (11.0-16.0); White Blood Count 7.9 X10*3/uL (4.8-10.8)
[2021-07-25] MEDS: cefTRIAXone sodium 1 GM in 0.9 % Sodium Chloride 50 ML IV (05:13)
[2021-07-25] MEDS: Levothyroxine Sodium 50 MCG TABLET PO (05:17)
[2021-07-25 05:26] LABS: Anion Gap 7 (12-20); Blood Urea Nitrogen 11 mg/dL (9-16); Calcium 7.3 mg/dL (8.4-10.2); Carbon Dioxide 36 mmol/L (22-29); Chloride 103 mmol/L (96-108); Creatinine Clr Calc Pharmacy 107.2; Estimated Glomerular Filt Rate > 60; Glucose Random 106 mg/dL (60-115); Potassium 3.8 mmol/L (3.3-5.1); Sodium 142 mmol/L (135-145)
[2021-07-25] MEDS: Azithromycin 500 MG in 0.9 % Sodium Chloride 250 ML 125 MG IV (05:53)
--- NOTE | 2021-07-25 07:00 | CA_ITS ---
Transthoracic Echocardiogram Patient (Last, First, Middle): Edilia Patel, Gender: Female Date of : 1950 Age: 71 Procedure Date: 07/25/2021 Procedure Type: Transthoracic Echocardiogram Location: ER Height: 175.26 cm Weight: 68.04 kg BSA: 1.83 m2 Heart Rate: bpm BP: 114 / 68 mmHg Senior Mechanical Engineer: LAURENT Crawford MD: Chris Garner MD Wool Sorter: Danish Bear MD Symptoms: fluid overload Study Quality: Fair ECG Rhythm: Sinus Conclusions: - 1. Normal LV systolic function with mild LVH with impaired relaxation filling pattern with elevated filling pressures 2. Moderately dilated left atrium 3. At least moderate mitral regurgitation 4. RV systolic pressure could not be estimated on this study Findings Left Ventricle Normal left ventricular size and systolic function. There is mildly increased left ventricular wall thickness. The visually estimated ejection fraction is between 65-70%. Spectral Doppler is indicative of an impaired relaxation filling pattern. Elevated filling pressures. E/E prime ratio is >15, consistent with elevated filling pressures. There is moderate septal asymmetric hypertrophy. Right Ventricle Normal right ventricular cavity size and systolic function. Atria The left atrium is moderately dilated. Interatrial shunt cannot be excluded. The right atrium is normal in size. Aortic Valve There is mild calcification of the aortic valve. There is no aortic valve stenosis. There is no aortic valve regurgitation. Mitral Valve There is mild anterior and posterior mitral leaflet thickening. There is moderate mitral valve regurgitation. There is no mitral valve stenosis. Pulmonic Valve The pulmonic valve was not well visualized. Tricuspid Valve Likely normal tricuspid valve structure and function. There is mild tricuspid valve regurgitation. Great Vessels All visible segments of the aorta are normal in size. The pulmonary artery was not well visualized. Venous The inferior vena cava was not well visualized. Pericardium/Pleural The pericardium was not well visualized. Prior Study Comparison No prior study available for comparison. Measurements 2D Linear Measurements IVSd: 1.30 0.6-0.9/0.6-1.0 cm LVIDd: 4.05 3.9-5.3/4.2-5.9 cm LVIDd Index: 2.21 2.4-3.2/2.2-3.1 cm/m2 LVIDs: 3.06 2.0-3.6 cm LVPWd: 1.25 0.7-1.1 cm LA Diam: 4.80 2.7-3.8/3.0-4.0 cm LAIDs Index: 2.62 1.5-2.3 cm/m2 LV Mass: 229.91 67-162/88-224 g LV Mass Index: 125.63 43-95/49-115 g/m2 LVOT Diam: 2.00 3.0+(-)1.3 cm 2D Systolic Function EF 4C: 71.70 >55% EF 2C: 60.70 >55% EF BiP: 67.10 >55% Mitral Valve MV Pk E: 0.66 MV PK A: 0.84 MV Decel Time: 193.00 E/A: 0.80 E'Lateral: 4.35 E'Medial: 3.48 E/E' Med: 19.10 E/E' Lat: 15.30 PHT: 57.00 MVA PHT: 3.86 Decel Miller: 3.44 Aortic Valve AoV Pk Bert: 1.03 AoV Mn Bert: 0.72 AoV VTI: 0.13 AoV Pk Grad: 4.00 Aov Mn Grad: 2.00 [place] Cont.VTI: 2.94 LVOT LVOT Pk Bert: 0.77 LVOT Mn Bert: 0.51 LVOT VTI: 0.12 LVOT Pk Grad: 2.00 LVOT Mn Grad: 1.00 LVOT Diam: 2.00 LVOT Area: 3.14 Diastolic Function MV Pk E: 0.66 MV Pk A: 0.84 E/A: 0.80 E'Medial: 3.48 E/E' Med: 19.10 E' Laterial: 4.35 E/E' Lat: 15.30 Right Ventricle TAPSE (mm): 23.30 TVS' Bert: 16.30 Tricuspid Valve TR Pk Bert: 2.62 TR Pk Grad: 27.00 Great Vessels Aorta Sinus of Valsalva: 3.30 2.0-3.[address] [place]: 2.61 1.7-3.4 cm Ao Asc: 3.10 2.1-3.4 cm Updated in Other Vendor System with Status of Final Danish Bear MD electronically signed on 07/26/2021 8:37:39 AM with status of Final
[2021-07-25] MEDS: Furosemide 20 MG/2 ML VIAL IVPUSH (08:57)
[2021-07-25] MEDS: Gabapentin 400 MG CAPSULE PO ×3 (08:57→21:19)
[2021-07-25] MEDS: methADONE HCl 10 MG TABLET PO ×2 (08:58→21:21)
[2021-07-25] MEDS: DULoxetine HCl 60 MG CAPSULE.DR PO (08:58)
[2021-07-25] MEDS: lisinopriL 2.5 MG TABLET PO (08:58)
[2021-07-25] MEDS: risperiDONE 2 MG TABLET PO ×2 (08:58→21:20)
[2021-07-25] MEDS: Gabapentin 100 MG CAPSULE PO ×3 (08:59→21:19)
[2021-07-25] MEDS: busPIRone HCl 5 MG TABLET PO ×3 (08:59→21:20)
[2021-07-25] MEDS: Apixaban 5 MG TABLET PO ×2 (08:59→21:20)
[2021-07-25] MEDS: 0.9 % Sodium Chloride Flush 3 ML SYRINGE IVFLUSH (08:59)
--- NOTE | 2021-07-25 10:35 | PC.NURSE ---
Pt resting in hospital bed, vss. No c/o pain. pt ate most of her breakfast. ECHO did imaging at bedside. PT working with pt. Lungs sound diminished. pt alert to self, situation and place. Medicated per APR.
--- NOTE | 2021-07-25 12:18 | P.PNIM_ITS ---
Subjective Subjective Date of Service: 07/25/21 Interval History: the patient was seen and evaluated this morning Laying in bed, feels mild improvement this morning Still feeling tired and reporting shortness of breath still reporting shortness of breath No reported other overnight events. Systemic review: No fever, chills or weakness No chest pain, palpitation but has edema reporting shortness of breath or coughing No abdominal pain, nausea or vomiting No urinary symptoms No any rash or wounds Physical Exam Vital Signs: Vital Signs: Last Vital Signs Temp 97.9 F 07/24/21 12:45 Pulse 76 07/25/21 10:38 Resp 18 07/25/21 08:55 BP 124/71 07/25/21 10:38 Pulse Ox 92 07/25/21 10:38 BMI result Body Mass Index 22.1 Const: Other: Constitutional : Alert, oriented, not in distress Neck : Normal inspection, Supple Cardiovascular : RRR, no JVP, no lower extremity edema Respiratory : decrease bilateral air entry, mainly left side basal crackles with no wheezes noted Gastrointestinal: soft, lax, Normal bowel sounds, Non tender Skin : Warm, Dry Neurological : Alert & oriented x3, No focal deficit , CN 2-12 within normal Objective Data Active Medications Acetaminophen (Acetaminophen 325 Mg Tablet) 650 mg PO Q6H PRN PRN Reason: Pain, Mild (Pain Scale 1-3) Al Hydroxide/Mg Hydroxide (Magnesium Hydrox/Alum Hydrox 30 Ml Oral.Susp) 30 ml PO Q4H PRN PRN Reason: GERD Albuterol Sulfate (Albuterol Sulfate 90 Mcg 8 Gm Inhaler) 2 puff INHALE Q4H PRN PRN Reason: copd Apixaban (Apixaban 5 Mg Tablet) 5 mg PO BID [facility] Last Admin: 07/25/21 08:59 Dose: 5 mg Documented by: SATYA Buspirone HCl (Buspirone Hcl 5 Mg Tablet) 5 mg PO TID [facility] Last Admin: 07/25/21 08:59 Dose: 5 mg Documented by: SATYA Docusate Sodium (Docusate Sodium 100 Mg Capsule) 100 mg PO DAILY PRN PRN Reason: Constipation Duloxetine HCl (Duloxetine Hcl 60 Mg Capsule.Dr) 60 mg PO DAILY [facility] Last Admin: 07/25/21 08:58 Dose: 60 mg Documented by: SATYA Furosemide (Furosemide 20 Mg/2 Ml Vial) 20 mg IVPUSH DAILY [facility]; Protocol Last Admin: 07/25/21 08:57 Dose: 20 mg Documented by: SATYA Gabapentin (Gabapentin 100 Mg Capsule) 100 mg PO TID [facility] Last Admin: 07/25/21 08:59 Dose: 100 mg Documented by: SATYA Gabapentin (Gabapentin 400 Mg Capsule) 400 mg PO TID [facility] Last Admin: 07/25/21 08:57 Dose: 400 mg Documented by: SATYA Azithromycin 500 mg/ Sodium (Chloride) 250 mls @ 125 mls/hr IV Q24H [facility] Last Admin: 07/25/21 05:53 Dose: 125 mls/hr Documented by: IDANIA Ceftriaxone Sodium 1 gm/ (Sodium Chloride) 50 mls @ 100 mls/hr IV Q24H [facility] Last Infusion: 07/25/21 05:56 Dose: 0 mls/hr Documented by: IDANIA Lamotrigine (Lamotrigine 25 Mg Tablet) 50 mg PO BEDTIME [facility] Last Admin: 07/24/21 20:45 Dose: 50 mg Documented by: SILVIA Levothyroxine Sodium (Levothyroxine Sodium 50 Mcg Tablet) 50 mcg PO DAILY@0600 [facility] Last Admin: 07/25/21 05:17 Dose: 50 mcg Documented by: IDANIA Lisinopril (Lisinopril 2.5 Mg Tablet) 2.5 mg PO DAILY [facility]; Protocol Last Admin: 07/25/21 08:58 Dose: 2.5 mg Documented by: SATYA Methadone HCl (Methadone Hcl 10 Mg Tablet) 10 mg PO BID [facility] Last Admin: 07/25/21 08:58 Dose: 10 mg Documented by: SATYA Methadone HCl (Methadone Hcl 10 Mg Tablet) 10 mg PO DAILY PRN PRN Reason: chronic pain Last Admin: 07/24/21 20:44 Dose: 10 mg Documented by: SILVIA Ondansetron HCl (Ondansetron Hcl 4 Mg/2 Ml Vial) 4 mg IVPUSH Q8H PRN PRN Reason: Nausea and Vomiting Pharmacy Consult (Consult Rx Perform Med Rec) 1 each MISCELLANE ONCE PRN PRN Reason: Consult order Polyethylene Glycol (Polyethylene Glycol 3350 17 Gm Powd.Pack) 17 gm PO DAILY [facility] Last Admin: 07/25/21 08:58 Dose: Not Given Documented by: SATYA Non-Admin Reason: Patient Refused Risperidone (Risperidone 2 Mg Tablet) 2 mg PO BID [facility] Last Admin: 07/25/21 08:58 Dose: 2 mg Documented by: SATYA Sodium Chloride (0.9 % Sodium Chloride Flush 3 Ml Syringe) 3 ml IVFLUSH QSHIFT [facility] Last Admin: 07/25/21 08:59 Dose: 3 ml Documented by: SATYA Tiotropium [place] (Tiotropium [place] 18 Mcg Cap.W.Dev) 2 puff INHALE RDAILY [facility] Last Admin: 07/25/21 08:01 Dose: 2 puff Documented by: TONY Labs CBC & Chem 7: 07/25/21 04:41 07/25/21 04:41 Labs: Laboratory Results - last 24 hr 07/25/21 07/25/21 04:41 04:41 MCV 95.4 MCH 29.1 MCHC 30.4 L RDW 18.7 H Plt Count 168 MPV 9.8 Absolute Nucleated RBC 0.000 Nucleated RBC % (auto) 0.0 Anion Gap 7 L Estim Creat Clear Calc 107.2 Estimated GFR > 60 Random Glucose 106 Calcium 7.3 L D Microbiology Microbiology Results: Microbiology 07/23/21 14:35 Blood Culture - Preliminary Blood - Venous No growth after 24 hours. 07/23/21 13:45 Blood Culture - Preliminary Blood - Venous No growth after 24 hours. Assessment and Plan (1) Acute respiratory failure with hypoxia: Status: Acute (2) Pneumonia: Status: Acute Plan This is a 71-year-old female past medical history as above who presents to the hospital after being found hypoxic and hypotensive at the assisted. # acute hypoxic respiratory failure # secondary to pneumonia improving slowly chest CT shows extensive infiltrates, will need repeat in few months wean down oxygen as tolerated Continue incentive spirometry continue IV antibiotic negative cultures # dilated CBD seen on CT patient has no abdominal pain no rebound or guarding, no elevated LFTs if any new pain consider ultrasound # elevated troponin likely secondary to demand in the setting of hypoxia denies any chest pain no EKG suggestive of ACS pending echo # history of PE continue apixaban # hypertension stable continue home medication # hypothyroidism continue levothyroxine DVT prophylaxis: Apixaban patient will need overnight hospital stay to continue treatment for pneumonia pending final blood cultures and weaning her off the oxygen to prevent further decompensation in 2 hypoxic respiratory failure. Quality Stroke Does the patient have a stroke diagnosis?: No VTE Prior VTE?: No VTE Risk Level:: Medical - moderate - high VTE Device Contraindication: Treatment Not Indicated VTE Drug Contraindication: N/A - Med Ordered
--- NOTE | 2021-07-25 12:22 | PC.NURSE ---
Pt incontinent of urine multiple times. Purewick placed for pts comfort.
[2021-07-25] MEDS: lamoTRIgine 25 MG TABLET 50 MG PO (21:20)
--- NOTE | 2021-07-25 23:13 | PC.NURSE ---
Patient has stage 2 pressure ulcers to right heel, right buttock and coccyx. Woundres' gel applied to all areas and covered with foam dressing. Patient also has a stage 1 to mid back/spine covered with foam dressing. Pictures taken and placed in chart
[2021-07-26] VITALS (7 sets, daily range): BP systolic 91–119; BP diastolic 57–82; PULSE 79–98; RESP 16–20; TEMP 36.1–36.8; O2SAT 94–97; BMI 22.5
[2021-07-26] MEDS: 0.9 % Sodium Chloride Flush 3 ML SYRINGE IVFLUSH ×3 (00:37→21:17)
[2021-07-26] MEDS: Levothyroxine Sodium 50 MCG TABLET PO (05:32)
[2021-07-26] MEDS: cefTRIAXone sodium 1 GM in 0.9 % Sodium Chloride 50 ML IV (05:33)
[2021-07-26] MEDS: Azithromycin 500 MG in 0.9 % Sodium Chloride 250 ML 125 MG IV (06:31)
[2021-07-26 07:21] LABS: Anion Gap 14 (12-20); Blood Urea Nitrogen 11 mg/dL (9-16); Calcium 7.7 mg/dL (8.4-10.2); Carbon Dioxide 32 mmol/L (22-29); Chloride 101 mmol/L (96-108); Creatinine Clr Calc Pharmacy 94.3; Estimated Glomerular Filt Rate > 60; Glucose Random 108 mg/dL (60-115); Potassium 4.1 mmol/L (3.3-5.1); Sodium 143 mmol/L (135-145)
[2021-07-26 09:18] LABS: Alanine Aminotransferase 23 U/L (0-31); Albumin Level 1.8 g/dL (3.5-5.0); Alkaline Phosphatase 117 U/L (39-117); Aspartate Amino Transferase 15 U/L (5-31); Bilirubin Direct < 0.2 mg/dL (0.0-0.5); Bilirubin Total 0.3 mg/dL (0.0-1.0); Total Protein 4.2 g/dL (6.5-8.0)
[2021-07-26] MEDS: methADONE HCl 10 MG TABLET PO ×2 (09:40→21:16)
[2021-07-26] MEDS: Gabapentin 100 MG CAPSULE PO ×3 (09:40→21:16)
[2021-07-26] MEDS: Gabapentin 400 MG CAPSULE PO ×3 (09:40→21:16)
[2021-07-26] MEDS: Furosemide 20 MG/2 ML VIAL IVPUSH (09:40)
[2021-07-26] MEDS: Apixaban 5 MG TABLET PO ×2 (09:40→21:15)
[2021-07-26] MEDS: lisinopriL 2.5 MG TABLET PO (09:40)
[2021-07-26] MEDS: DULoxetine HCl 60 MG CAPSULE.DR PO (09:41)
[2021-07-26] MEDS: busPIRone HCl 5 MG TABLET PO ×3 (09:41→21:16)
[2021-07-26] MEDS: risperiDONE 2 MG TABLET PO ×2 (09:41→21:16)
--- NOTE | 2021-07-26 10:57 | HO.PM.IMPN ---
Subjective Subjective Date of Service: 07/26/21 Interval History: seen and examined this AM feels tired breathing unchanged denies chest pain or fevers Review of Systems negative except interval history Physical Exam Vital Signs: Vital Signs: Last Vital Signs Temp 97.4 F 07/26/21 07:33 Pulse 91 07/26/21 09:11 Resp 20 07/26/21 09:11 BP 113/82 07/26/21 07:33 Pulse Ox 97 07/26/21 07:33 BMI result Body Mass Index 22.5 Const: Other: General - no acute distress, appears weak/fatigued Cardiovascular - regular rate and rhythm, S1-S2 Lungs - diminished sounds Abdomen - soft, nontender, no rebound or guarding Extremities - b/l edema Neuro - awake and alert, no focal deficits Objective Data Active Medications Acetaminophen (Acetaminophen 325 Mg Tablet) 650 mg PO Q6H PRN PRN Reason: Pain, Mild (Pain Scale 1-3) Al Hydroxide/Mg Hydroxide (Magnesium Hydrox/Alum Hydrox 30 Ml Oral.Susp) 30 ml PO Q4H PRN PRN Reason: GERD Albuterol Sulfate (Albuterol Sulfate 90 Mcg 8 Gm Inhaler) 2 puff INHALE Q4H PRN PRN Reason: copd Apixaban (Apixaban 5 Mg Tablet) 5 mg PO BID [facility] Last Admin: 07/26/21 09:40 Dose: 5 mg Documented by: AMY Buspirone HCl (Buspirone Hcl 5 Mg Tablet) 5 mg PO TID [facility] Last Admin: 07/26/21 09:41 Dose: 5 mg Documented by: AMY Docusate Sodium (Docusate Sodium 100 Mg Capsule) 100 mg PO DAILY PRN PRN Reason: Constipation Duloxetine HCl (Duloxetine Hcl 60 Mg Capsule.Dr) 60 mg PO DAILY [facility] Last Admin: 07/26/21 09:41 Dose: 60 mg Documented by: AMY Furosemide (Furosemide 20 Mg/2 Ml Vial) 20 mg IVPUSH DAILY [facility]; Protocol Last Admin: 07/26/21 09:40 Dose: 20 mg Documented by: AMY Gabapentin (Gabapentin 100 Mg Capsule) 100 mg PO TID [facility] Last Admin: 07/26/21 09:40 Dose: 100 mg Documented by: AMY Gabapentin (Gabapentin 400 Mg Capsule) 400 mg PO TID [facility] Last Admin: 07/26/21 09:40 Dose: 400 mg Documented by: AMY Azithromycin 500 mg/ Sodium (Chloride) 250 mls @ 125 mls/hr IV Q24H [facility] Last Infusion: 07/26/21 08:43 Dose: 0 mls/hr Documented by: AMY Ceftriaxone Sodium 1 gm/ (Sodium Chloride) 50 mls @ 100 mls/hr IV Q24H [facility] Last Infusion: 07/26/21 06:25 Dose: 0 mls/hr Documented by: BRICE Lamotrigine (Lamotrigine 25 Mg Tablet) 50 mg PO BEDTIME [facility] Last Admin: 07/25/21 21:20 Dose: 50 mg Documented by: URBANO Levothyroxine Sodium (Levothyroxine Sodium 50 Mcg Tablet) 50 mcg PO DAILY@0600 [facility] Last Admin: 07/26/21 05:32 Dose: 50 mcg Documented by: BRICE Lisinopril (Lisinopril 2.5 Mg Tablet) 2.5 mg PO DAILY [facility]; Protocol Last Admin: 07/26/21 09:40 Dose: 2.5 mg Documented by: AMY Methadone HCl (Methadone Hcl 10 Mg Tablet) 10 mg PO BID [facility] Last Admin: 07/26/21 09:40 Dose: 10 mg Documented by: AMY Methadone HCl (Methadone Hcl 10 Mg Tablet) 10 mg PO DAILY PRN PRN Reason: chronic pain Last Admin: 07/24/21 20:44 Dose: 10 mg Documented by: JOSEF-BERRJ Ondansetron HCl (Ondansetron Hcl 4 Mg/2 Ml Vial) 4 mg IVPUSH Q8H PRN PRN Reason: Nausea and Vomiting Pharmacy Consult (Consult Rx Perform Med Rec) 1 each MISCELLANE ONCE PRN PRN Reason: Consult order Polyethylene Glycol (Polyethylene Glycol 3350 17 Gm Powd.Pack) 17 gm PO DAILY [facility] Last Admin: 07/26/21 09:41 Dose: Not Given Documented by: AMY Non-Admin Reason: Patient Refused Risperidone (Risperidone 2 Mg Tablet) 2 mg PO BID [facility] Last Admin: 07/26/21 09:41 Dose: 2 mg Documented by: AMY Sodium Chloride (0.9 % Sodium Chloride Flush 3 Ml Syringe) 3 ml IVFLUSH QSHIFT [facility] Last Admin: 07/26/21 07:43 Dose: Not Given Documented by: AMY Non-Admin Reason: IV Running Tiotropium [place] (Tiotropium [place] 18 Mcg Cap.W.Dev) 1 puff INHALE RDAILY [facility] Last Admin: 07/26/21 09:09 Dose: 1 puff Documented by: MARTÍN Labs CBC & Chem 7: 07/25/21 04:41 07/26/21 06:45 Labs: Laboratory Results - last 24 hr 07/26/21 06:45 Anion Gap 14 Estim Creat Clear Calc 94.3 Estimated GFR > 60 Random Glucose 108 Calcium 7.7 L Total Bilirubin 0.3 Direct Bilirubin < 0.2 AST 15 ALT 23 Alkaline Phosphatase 117 Total Protein 4.2 L Albumin 1.8 L Microbiology Microbiology Results: Microbiology 07/23/21 14:35 Blood Culture - Preliminary Blood - Venous No growth after 48 hours. 07/23/21 13:45 Blood Culture - Preliminary Blood - Venous No growth after 48 hours. Assessment and Plan (1) Acute respiratory failure with hypoxia: Status: Acute (2) Pneumonia: Status: Acute Plan This is a 71-year-old female past medical history as above who presents to the hospital after being found hypoxic and hypotensive at the snf. # acute hypoxic respiratory failure # secondary to pneumonia chest CT shows extensive infiltrates, will need repeat in few months continues to require O2 -- wean as tolerated IV rocehpin/zithromax - day #3; will add PO prednisone # dilated CBD seen on CT patient has no abdominal pain no rebound or guarding, no elevated LFTs if any new pain consider ultrasound # elevated troponin likely secondary to demand in the setting of hypoxia denies any chest pain no EKG suggestive of ACS echo without an RWMA # history of PE continue apixaban # hypertension stable continue home medication # hypothyroidism continue levothyroxine DVT prophylaxis: Apixaban Patient requires continued inpatient hospitalization as she is still requiring oxygen to maintain normal saturation Quality Stroke Does the patient have a stroke diagnosis?: No VTE Prior VTE?: No VTE Risk Level:: Medical - moderate - high VTE Device Contraindication: Treatment Not Indicated VTE Drug Contraindication: N/A - Med Ordered
--- NOTE | 2021-07-26 11:36 | MHC.CM.PN ---
Per ROUNDS discussion, Patient is still hypoxic and not yet medically cleared for dc; Returning to LTC is the plan and CM will continue to follow.
[2021-07-26] MEDS: predniSONE 20 MG TABLET 40 MG PO (12:14)
--- NOTE | 2021-07-26 12:19 | MHC.CLN ---
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
[2021-07-26] MEDS: lamoTRIgine 25 MG TABLET 50 MG PO (21:16)
[2021-07-26] MEDS: Acetaminophen 325 MG TABLET 650 MG PO (21:16)
[2021-07-27 03:32] VITALS: BP 138/76; PULSE 91; RESP 18; TEMP 36.5; O2SAT 94
[2021-07-27] MEDS: Levothyroxine Sodium 50 MCG TABLET PO (06:26)
[2021-07-27] MEDS: cefTRIAXone sodium 1 GM in 0.9 % Sodium Chloride 50 ML IV (06:26)
[2021-07-27 07:38] VITALS: BP 106/68; PULSE 78; RESP 18; TEMP 36.7; O2SAT 95
[2021-07-27] MEDS: 0.9 % Sodium Chloride Flush 3 ML SYRINGE IVFLUSH ×3 (09:41→19:51)
[2021-07-27] MEDS: Azithromycin 500 MG in 0.9 % Sodium Chloride 250 ML 125 MG IV (09:41)
[2021-07-27] MEDS: DULoxetine HCl 60 MG CAPSULE.DR PO (09:43)
[2021-07-27] MEDS: Gabapentin 100 MG CAPSULE PO ×3 (09:43→19:50)
[2021-07-27] MEDS: Gabapentin 400 MG CAPSULE PO ×3 (09:43→19:51)
[2021-07-27] MEDS: methADONE HCl 10 MG TABLET PO ×2 (09:43→19:52)
[2021-07-27] MEDS: Furosemide 20 MG/2 ML VIAL IVPUSH (09:43)
[2021-07-27] MEDS: risperiDONE 2 MG TABLET PO ×2 (09:44→19:51)
[2021-07-27] MEDS: busPIRone HCl 5 MG TABLET PO ×3 (09:44→19:51)
[2021-07-27] MEDS: predniSONE 20 MG TABLET 40 MG PO (09:45)
[2021-07-27] MEDS: lisinopriL 2.5 MG TABLET PO (09:45)
[2021-07-27] MEDS: Apixaban 5 MG TABLET PO ×2 (09:45→19:51)
[2021-07-27 12:00] VITALS: BP 140/78; PULSE 72; RESP 18; TEMP 36.4; O2SAT 95
--- NOTE | 2021-07-27 13:59 | HO.PM.IMPN ---
Subjective Subjective Date of Service: 07/27/21 Interval History: the patient was seen and evaluated this morning Laying in bed, feels overall improvement and having more strength still reporting shortness of breath with exertion No reported other overnight events. Systemic review: No fever, chills or weakness No chest pain, palpitation but has edema reporting shortness of breath with exertion No abdominal pain, nausea or vomiting No urinary symptoms No any rash or wounds Physical Exam Vital Signs: Vital Signs: Last Vital Signs Temp 97.6 F 07/27/21 12:00 Pulse 72 07/27/21 12:00 Resp 18 07/27/21 12:00 BP 140/78 H 07/27/21 12:00 Pulse Ox 95 07/27/21 12:00 BMI result Body Mass Index 22.5 Const: Other: Constitutional : Alert, oriented, not in distress Neck : Normal inspection, Supple Cardiovascular : RRR, no JVP, no lower extremity edema Respiratory : Improved bilateral air entry, mainly left side basal crackles with no wheezes noted common oxygen supplement Gastrointestinal: soft, lax, Normal bowel sounds, Non tender Skin : Warm, Dry Neurological : Alert & oriented x3, No focal deficit , CN 2-12 within normal Objective Data Active Medications Acetaminophen (Acetaminophen 325 Mg Tablet) 650 mg PO Q6H PRN PRN Reason: Pain, Mild (Pain Scale 1-3) Last Admin: 07/26/21 21:16 Dose: 650 mg Documented by: ANTOIC Al Hydroxide/Mg Hydroxide (Magnesium Hydrox/Alum Hydrox 30 Ml Oral.Susp) 30 ml PO Q4H PRN PRN Reason: GERD Albuterol Sulfate (Albuterol Sulfate 90 Mcg 8 Gm Inhaler) 2 puff INHALE Q4H PRN PRN Reason: copd Apixaban (Apixaban 5 Mg Tablet) 5 mg PO BID [facility] Last Admin: 07/27/21 09:45 Dose: 5 mg Documented by: LAVERN Buspirone HCl (Buspirone Hcl 5 Mg Tablet) 5 mg PO TID [facility] Last Admin: 07/27/21 09:44 Dose: 5 mg Documented by: LAVERN Docusate Sodium (Docusate Sodium 100 Mg Capsule) 100 mg PO DAILY PRN PRN Reason: Constipation Duloxetine HCl (Duloxetine Hcl 60 Mg Capsule.) 60 mg PO DAILY [facility] Last Admin: 07/27/21 09:43 Dose: 60 mg Documented by: LAVERN Furosemide (Furosemide 20 Mg/2 Ml Vial) 20 mg IVPUSH DAILY [facility]; Protocol Last Admin: 07/27/21 09:43 Dose: 20 mg Documented by: LAVERN Gabapentin (Gabapentin 100 Mg Capsule) 100 mg PO TID [facility] Last Admin: 07/27/21 09:43 Dose: 100 mg Documented by: LAVERN Gabapentin (Gabapentin 400 Mg Capsule) 400 mg PO TID [facility] Last Admin: 07/27/21 09:43 Dose: 400 mg Documented by: LAVERN Azithromycin 500 mg/ Sodium (Chloride) 250 mls @ 125 mls/hr IV Q24H [facility] Last Infusion: 07/27/21 12:34 Dose: 0 mls/hr Documented by: LAVERN Ceftriaxone Sodium 1 gm/ (Sodium Chloride) 50 mls @ 100 mls/hr IV Q24H [facility] Last Infusion: 07/27/21 09:45 Dose: 0 mls/hr Documented by: LAVERN Lamotrigine (Lamotrigine 25 Mg Tablet) 50 mg PO BEDTIME [facility] Last Admin: 07/26/21 21:16 Dose: 50 mg Documented by: ANTJACK Levothyroxine Sodium (Levothyroxine Sodium 50 Mcg Tablet) 50 mcg PO DAILY@0600 [facility] Last Admin: 07/27/21 06:26 Dose: 50 mcg Documented by: ANTJACK Lisinopril (Lisinopril 2.5 Mg Tablet) 2.5 mg PO DAILY [facility]; Protocol Last Admin: 07/27/21 09:45 Dose: 2.5 mg Documented by: LAVERN Methadone HCl (Methadone Hcl 10 Mg Tablet) 10 mg PO BID [facility] Last Admin: 07/27/21 09:43 Dose: 10 mg Documented by: LAVERN Methadone HCl (Methadone Hcl 10 Mg Tablet) 10 mg PO DAILY PRN PRN Reason: chronic pain Last Admin: 07/24/21 20:44 Dose: 10 mg Documented by: SILVIA Ondansetron HCl (Ondansetron Hcl 4 Mg/2 Ml Vial) 4 mg IVPUSH Q8H PRN PRN Reason: Nausea and Vomiting Pharmacy Consult (Consult Rx Perform Med Rec) 1 each MISCELLANE ONCE PRN PRN Reason: Consult order Polyethylene Glycol (Polyethylene Glycol 3350 17 Gm Powd.Pack) 17 gm PO DAILY [facility] Last Admin: 07/27/21 10:08 Dose: Not Given Documented by: LAEVRN Non-Admin Reason: Patient Refused Prednisone (Prednisone 20 Mg Tablet) 40 mg PO DAILY [facility] Last Admin: 07/27/21 09:45 Dose: 40 mg Documented by: LAVERN Risperidone (Risperidone 2 Mg Tablet) 2 mg PO BID [facility] Last Admin: 07/27/21 09:44 Dose: 2 mg Documented by: LAVERN Sodium Chloride (0.9 % Sodium Chloride Flush 3 Ml Syringe) 3 ml IVFLUSH QSHIFT [facility] Last Admin: 07/27/21 09:41 Dose: 3 ml Documented by: LAVERN Tiotropium [place] (Tiotropium [place] 18 Mcg Cap.W.Dev) 1 puff INHALE RDAILY [facility] Last Admin: 07/27/21 07:43 Dose: Not Given Documented by: ANGEL Non-Admin Reason: Medication Discontinued Labs CBC & Chem 7: 07/25/21 04:41 07/26/21 06:45 Assessment and Plan (1) Pneumonia: Status: Acute (2) Acute respiratory failure with hypoxia: Status: Acute Plan This is a 71-year-old female past medical history as above who presents to the hospital after being found hypoxic and hypotensive at the [facility]. # acute hypoxic respiratory failure # secondary to pneumonia improving slowly chest CT shows extensive infiltrates, will need repeat in few months Continue incentive spirometry Change IV antibiotic to oral negative cultures wean down oxygen as tolerated # dilated CBD seen on CT no abdominal pain no rebound or guarding Normal repeated LFTs if any new pain consider ultrasound # elevated troponin likely secondary to demand in the setting of hypoxia no EKG suggestive of ACS Echo showed the normal LV function with mild LVH # moderate protein malnutrition, hypoalbuminemia Add Ensure # history of PE continue apixaban # hypertension stable continue home medication # hypothyroidism continue levothyroxine DVT prophylaxis: Apixaban patient will need overnight hospital stay to continue treatment for pneumonia pending final blood cultures and weaning her off the oxygen to prevent further decompensation in 2 hypoxic respiratory failure. Quality Stroke Does the patient have a stroke diagnosis?: No VTE Prior VTE?: No VTE Risk Level:: Medical - moderate - high VTE Device Contraindication: Treatment Not Indicated VTE Drug Contraindication: N/A - Med Ordered
[2021-07-27 15:24] VITALS: BP 141/85; PULSE 73; RESP 18; TEMP 36.9; O2SAT 94
[2021-07-27 19:25] VITALS: BP 110/68; PULSE 67; RESP 18; TEMP 37; O2SAT 97
[2021-07-27] MEDS: lamoTRIgine 25 MG TABLET 50 MG PO (19:50)
[2021-07-27 23:43] VITALS: BP 113/74; PULSE 63; RESP 17; TEMP 35.7; O2SAT 95
[2021-07-28] VITALS (7 sets, daily range): BP systolic 99–142; BP diastolic 70–81; PULSE 58–101; RESP 16–18; TEMP 36.3–37.1; O2SAT 91–97
[2021-07-28] MEDS: Levothyroxine Sodium 50 MCG TABLET PO (06:44)
[2021-07-28] MEDS: DULoxetine HCl 60 MG CAPSULE.DR PO (09:38)
[2021-07-28] MEDS: 0.9 % Sodium Chloride Flush 3 ML SYRINGE IVFLUSH ×2 (09:38→21:00)
[2021-07-28] MEDS: predniSONE 20 MG TABLET 40 MG PO (09:38)
[2021-07-28] MEDS: Gabapentin 100 MG CAPSULE PO ×3 (09:39→21:00)
[2021-07-28] MEDS: lisinopriL 2.5 MG TABLET PO (09:39)
[2021-07-28] MEDS: Apixaban 5 MG TABLET PO ×2 (09:39→21:00)
[2021-07-28] MEDS: Gabapentin 400 MG CAPSULE PO ×3 (09:39→21:00)
[2021-07-28] MEDS: methADONE HCl 10 MG TABLET PO ×3 (09:39→21:00)
[2021-07-28] MEDS: busPIRone HCl 5 MG TABLET PO ×3 (09:40→21:00)
[2021-07-28] MEDS: risperiDONE 2 MG TABLET PO ×2 (09:40→21:00)
[2021-07-28] MEDS: Furosemide 20 MG/2 ML VIAL IVPUSH (09:40)
--- NOTE | 2021-07-28 10:24 | MHC.CM.PN ---
Addendum entered by Buffy Villela 07/28/21 14:25: [facility] INDICATED THEY WOULD ACCEPT PT ANYTIME AFTER LUNCH BLS TRANSPORT REQUESTED FOR 1300 HOURS [facility] INDICATED THEY WOULD ARRIVE BETWEEN 1300 AND 1130 HOURS SNF INFORMED Original Note: CM INFORMED PT MAY RETURN TO SNF TODAY UPDATES SENT TO [facility] WITH NOTICE ON INTENT TO DC AWAITING RESPONSE
--- NOTE | 2021-07-28 10:52 | PM.DS ---
DS: Providers Provider Date of Service: 07/28/21 Date of admission: 07/23/21 21:01 Primary care physician: Unknown Physician DS: Diagnosis Discharge Diagnosis (1) Pneumonia: Status: Acute (2) Acute respiratory failure with hypoxia: Status: Acute (3) Dilated cbd, acquired: Status: Acute DS: Summary Hospital Course Hospital Course: Admission note HPI 71-year-old female past medical history of PA D, DVT, PE, chronic anemia, alcoholism, opiate dependence, who presents to the hospital with findings of hypoxia and hypotension.? Patient is sent from snf after being noticed to be hypotensive and have hypoxia in the 80s.? Patient is not a good historian, answers questions but very slow, does not give much details.? Tells me that she has difficulty gathering her thoughts.? Patient reports that she has not been eating or drinking well for the past few days, she has had a cough for the past few days, denies any chest pain, no abdominal pain, no nausea or vomiting, no diarrhea constipation, no urinary symptoms and no lower extremity edema. On arrival to the ED patient was found to have oxygen level of 77% on room air.? Placed on nasal cannula now satting and 2-90%.? Vitals otherwise within normal Labs are significant for WBC count of 9.4, hemoglobin of 11.7, troponin peaked to 324 but trended down, with no delta, BNP of 119, AST of 24, ALT of 31, albumin of 2.0, lipase less than 4.? Initial x-ray showed mild bibasilar linear atelectasis, small right pleural effusion cannot be excluded, given the significant hypoxia a chest CT was obtained which showed patchy, tree-in-bud type nodularity within much of the left lung as well as few patchy regions of ground-glass opacity in the right upper lobe, overall favoring infectious/inflammatory.? Chest CT also showed common bile duct dilation. Patient will be admitted for further management Hospital course The patient was admitted to the hospital for treatment of acute hypoxic respiratory failure secondary to community-acquired pneumonia. CT scan of the chest shows extensive infiltrates. Treated with IV antibiotics and oxygen supplement with good response over the course of hospital stay as she was weaned off the oxygen and became able to ambulate with physical therapy. Blood cultures remain negative during the hospital stay. On admission found to have elevated troponin which believed to be secondary to demand in setting of hypoxia as no EKG changes suggestive of ACS and the repeated troponins remain flat. Echo was done showing normal LV function with mild LVH. An incidental finding on the CT of the chest showed dilated CBD and pancreatic duct. The patient had no abdominal pain or nausea. She did not have jaundice and abnormal liver function test. Suggested an outpatient MRCP study to evaluate the pancreas and the biliary tract. Continue Ensure with meals 3 times a day Continue azithromycin and Ceftin as prescribed To follow-up with PCP as scheduled, to seek further evaluation of dilated CBD with an MRCP image that needs to be scheduled with the MRI department Will need to repeat CT scan of the chest in few months to confirm resolution of infiltrate and to look for any other findings. Time Spent with Patient Time attestation: Total time spent providing and/or coordinating discharge services: Discharge coordination time: Greater than 30 minutes Quality: Safe Use of Opioids Does Pt have an Active Cancer Diagnosis on the Problem List?: No Quality: Stroke Does the patient have a stroke diagnosis?: No Physical Exam Vital Signs: Vital Signs: Last Vital Signs Temp 97.8 F 07/28/21 07:29 Pulse 59 07/28/21 07:29 Resp 18 07/28/21 07:29 BP 142/75 H 07/28/21 07:29 Pulse Ox 96 07/28/21 07:29 BMI result Body Mass Index 22.5 Const: Other: Constitutional : Alert, oriented, not in distress Neck : Normal inspection, Supple Cardiovascular : RRR, no JVP, no lower extremity edema Respiratory : Improved bilateral air entry, resolving left side basal crackles with no wheezes noted Gastrointestinal: soft, lax, Normal bowel sounds, Non tender Skin : Warm, Dry Neurological : Alert & oriented x3, No focal deficit , CN 2-12 within normal DS: Data Data Completed and Pending Completed studies during hospitalization [Text1]: Procedures Assistance with Respiratory Ventilation, Less than 24 Consecutive Hours, Continuous Positive Airway Pressure (01/30/21) Excision of Right Foot Subcutaneous Tissue and Fascia, Open Approach (01/30/21) Labs on day of discharge: Preliminary micro results at discharge 07/23/21 14:35 Blood Culture - Preliminary Blood - Venous No growth after 48 hours. 07/23/21 13:45 Blood Culture - Preliminary Blood - Venous No growth after 48 hours. Discharge Plan Discharge Patient Disposition: er [facility] Discharge Diagnosis: Acute hypoxic respiratory failure Pneumonia Referrals: [facility] [Other] Physician,Unknown J [Primary Care Provider] - 1 Week Discharge Medications: New cefuroxime axetil 500 mg Tablet 500 mg PO Q12H 3 Days Qty: 6 0RF azithromycin 500 mg Tablet 500 mg PO Q24H 3 Days Qty: 3 0RF Continued ondansetron HCl 4 mg Tablet 4 mg PO Q8H PRN (Reason: Nausea And Vomiting) 0RF buspirone 5 mg Tablet 5 mg PO TID 0RF polyethylene glycol 3350 [Miralax] 17 gram Powder In Packet 17 g PO DAILY 0RF methadone 10 mg Tablet 10 mg PO DAILY PRN (Reason: chronic pain) 0RF methadone 10 mg Tablet 10 mg PO BID 0RF risperidone 2 mg Tablet 2 mg PO BID 0RF levothyroxine 50 mcg Tablet 50 mcg PO DAILY@0600 0RF lisinopril 5 mg Tablet 2.5 mg PO DAILY 0RF gabapentin 100 mg Capsule 100 mg PO TID 0RF Rx Instructions: take with gabapentin 400 mg alum-mag hydroxide-simeth 200-200-20 mg/5 mL Suspension 30 ml PO Q4H PRN (Reason: GERD) 0RF albuterol sulfate 90 mcg/actuation Hfa Aerosol Inhaler 2 puff INHALATION Q4H PRN (Reason: copd) 0RF duloxetine 60 mg Capsule,Delayed Release(Dr/Ec) 60 mg PO DAILY 0RF Spiriva Respimat 2.5 mcg/actuation Mist 2 puff INHALATION DAILY 0RF apixaban 5 mg Tablet 5 mg PO BID 0RF gabapentin 400 mg capsule 400 mg PO TID 0RF lamotrigine 25 mg tablet 50 mg PO BEDTIME 0RF Discharge Orders: Discharge Order (Routine); Ordered 07/28/21 Ordered By: Chris Garner Diet: advance to usual diet and low salt diet Activity on Discharge: As tolerated Stand Alone Forms: Patient Portal Discharge page Other Ambulatory Orders: MARY (Routine) Timeframe: 2 Weeks Facility: [facility] - Location: MRI Ordered By: Chris Garner Care Plan Goals: Read below Health Concerns: Read below Plan of Treatment: Read below Assessment: You were admitted to the hospital for evaluation of difficulty breathing. Found to have a nebs evidence of pneumonia which was treated with IV antibiotics and nebulizers with good response over the course of hospital stay. Continue azithromycin and Ceftin as prescribed To follow-up with PCP as scheduled, to seek further evaluation of dilated CBD with an MRCP image that needs to be scheduled with the MRI department. Discharge Date/Time: 07/29/21 07:55
[2021-07-28 11:22] LABS: COVID-19 Test Negative (Negative); IDNOW Serial# 16C4AD1C
[2021-07-28] MEDS: Azithromycin 500 MG TABLET PO (20:59)
[2021-07-28] MEDS: lamoTRIgine 25 MG TABLET 50 MG PO (21:00)
[2021-07-29 04:00] VITALS: BP 134/76; PULSE 67; RESP 16; TEMP 36.3; O2SAT 93
[2021-07-29] MEDS: Levothyroxine Sodium 50 MCG TABLET PO (05:05)
[2021-07-29 07:31] VITALS: BP 128/75; PULSE 68; RESP 18; TEMP 36.5; O2SAT 93
== END 2021-07-29 07:55 | DRG 193 ==
LOC: HO.ED 18:24 → HO.EDOVER 21:10 → HO.IMC 07-25 15:17
PROVIDERS: Family Medicine; Student in an Organized Health Care Education/Training Program; Admitting Provider Internal Medicine; Emergency Provider Emergency Medicine; Visit Provider Internal Medicine
DX: J18.9 Pneumonia, unspecified organism (principal); J96.01 Acute respiratory failure with hypoxia; E44.0 Moderate protein-calorie malnutrition; F11.20 Opioid dependence, uncomplicated; L89.512 Pressure ulcer of right ankle, stage 2; I10 Essential (primary) hypertension; K83.8 Other specified diseases of biliary tract; F10.21 Alcohol dependence, in remission; E03.9 Hypothyroidism, unspecified; Z20.822 Contact with and (suspected) exposure to COVID-19; Z86.16 Personal history of COVID-19; Z68.22 Body mass index [BMI] 22.0-22.9, adult; Z86.711 Personal history of pulmonary embolism; Z86.718 Personal history of other venous thrombosis and embolism; Z91.013 Allergy to seafood; Z88.2 Allergy status to sulfonamides; Z79.01 Long term (current) use of anticoagulants; Z79.890 Hormone replacement therapy; Z79.899 Other long term (current) drug therapy
CPT/HCPCS: 0241U; 36415; 70450; 71045; 71250; 80048; 80076; 83605; 83690; 83880; 84484; 85025; 85027; 85379; 87040; 87635; 93005; 93306; 96360; 97162; 99285; J0456; J0696; J1940

== ENCOUNTER 2021-09-04 08:42 | Emergency (ER) | payer MEDICARE, MEDICAID, SELFPAY ==
--- NOTE | ~2021-09-04 | CT_ITS ---
EXAMINATION: CT BRAIN AND CT CERVICAL SPINE WITHOUT CONTRAST. CLINICAL INFORMATION: Fell out of bed. COMPARISON: CT brain 07/23/2021 TECHNIQUE: 5 mm thin axial and reformatted 2 mm thin sagittal and coronal images of brain were obtained. Subsequently axial 3 mm thin and reformatted 2 mm thin sagittal coronal images of cervical spine were obtained. DLP 859 FINDINGS: Brain: There is no acute intra-axial, extra-axial bleed, masses or midline shift. There is no acute infarction or edema. The lateral ventricles are symmetrical but enlarged. There is diffuse periventrical hypodensities in both cerebral hemispheres without mass effect. Bone windows reveal no calvarial abnormality. Bilateral paranasal sinuses and mastoid air cells are well-aerated. Cervical spine: On sagittal reconstructed images there is exaggerated cervical lordosis with grade 1-2 anterolisthesis C3 over C4. Rest the vertebral alignment is normal. The vertebral heights are normal. There is loss of C3-C4, C4-C5, C5-C6 disc heights with mild posterior spondylosis. The craniovertebral junction and the C1-C2 alignment is normal. There is no visible acute fracture, dislocation or lytic process seen. The paravertebral and prevertebral soft tissues are normal. The airway is widely patent. The lung apices are clear. CT/CT head/brain wo con IMPRESSION: No acute intracranial process seen. Exaggerated cervical lordosis. No visible acute fracture or dislocation seen. There is grade 1-2 anterolisthesis C3 over C4.. Mild posterior spondylosis with degenerative disc changes C3-C4, C4-C5, C5-C6 disc levels.
--- NOTE | ~2021-09-04 | CT_ITS ---
EXAMINATION: CT BRAIN AND CT CERVICAL SPINE WITHOUT CONTRAST. CLINICAL INFORMATION: Fell out of bed. COMPARISON: CT brain 07/23/2021 TECHNIQUE: 5 mm thin axial and reformatted 2 mm thin sagittal and coronal images of brain were obtained. Subsequently axial 3 mm thin and reformatted 2 mm thin sagittal coronal images of cervical spine were obtained. DLP 859 FINDINGS: Brain: There is no acute intra-axial, extra-axial bleed, masses or midline shift. There is no acute infarction or edema. The lateral ventricles are symmetrical but enlarged. There is diffuse periventrical hypodensities in both cerebral hemispheres without mass effect. Bone windows reveal no calvarial abnormality. Bilateral paranasal sinuses and mastoid air cells are well-aerated. Cervical spine: On sagittal reconstructed images there is exaggerated cervical lordosis with grade 1-2 anterolisthesis C3 over C4. Rest the vertebral alignment is normal. The vertebral heights are normal. There is loss of C3-C4, C4-C5, C5-C6 disc heights with mild posterior spondylosis. The craniovertebral junction and the C1-C2 alignment is normal. There is no visible acute fracture, dislocation or lytic process seen. The paravertebral and prevertebral soft tissues are normal. The airway is widely patent. The lung apices are clear. CT/CT cervical spine wo con IMPRESSION: No acute intracranial process seen. Exaggerated cervical lordosis. No visible acute fracture or dislocation seen. There is grade 1-2 anterolisthesis C3 over C4.. Mild posterior spondylosis with degenerative disc changes C3-C4, C4-C5, C5-C6 disc levels.
[2021-09-04 08:49] VITALS: BP 133/89; BP 145/96; PULSE 74; PULSE 79; RESP 20; TEMP 36.8; O2SAT 93; O2SAT 95; BMI 18.0
--- NOTE | 2021-09-04 09:41 | ED.FALL ---
HPI - Fall General Chief Complaint: Fall Stated Complaint: NECK PAIN S/P FALL 2 DAYS AGO @ SNF Time Seen by Provider: 09/04/21 08:50 Source: patient and EMS Mode of arrival: EMS History of Present Illness HPI Narrative: 71-year-old female with a past medical history of acute respiratory failure with hypoxia, ETOH abuse, bacteremia, psychotic disorder, metabolic encephalopathy, opiate dependence, PAD, DVT, PE, chronic anemia, on Eliquis, presenting to ED from SNF for possible C3 fracture on outpatient x-rays 2 days ago. Per EMS patient had mechanical fall out of bed landing on head, denies LOC. denies symptoms prior to fall. Reports persistent neck pain since injury, and mild headache. Denies vision change/loss, numbness/tingling, weakness, nausea/vomiting. Patient actively refusing C-collar MD complaint: fall Onset (ago): day(s) Related Data Home Medications Medication Instructions Recorded Confirmed albuterol sulfate 90 mcg/actuation 2 puff inhalation Q4H PRN copd 01/30/21 07/23/21 aerosol inhaler aluminum-mag hydroxide-simethicone 30 ml PO Q4H PRN GERD 01/30/21 07/23/21 200 mg-200 mg-20 mg/5 mL oral susp apixaban 5 mg tablet 5 mg PO BID 01/30/21 07/23/21 buspirone 5 mg tablet 5 mg PO TID 01/30/21 07/23/21 duloxetine 60 mg capsule,delayed 60 mg PO DAILY 01/30/21 07/23/21 release gabapentin 100 mg capsule 100 mg PO TID 01/30/21 07/23/21 levothyroxine 50 mcg tablet 50 mcg PO DAILY@0600 01/30/21 07/23/21 lisinopril 5 mg tablet 2.5 mg PO DAILY 01/30/21 07/23/21 methadone 10 mg tablet 10 mg PO BID 01/30/21 07/23/21 methadone 10 mg tablet 10 mg PO DAILY PRN chronic pain 01/30/21 07/23/21 polyethylene glycol 3350 17 gram 17 g PO DAILY 01/30/21 07/23/21 oral powder packet (Miralax) risperidone 2 mg tablet 2 mg PO BID 01/30/21 07/23/21 tiotropium bromide 2.5 2 puff inhalation DAILY 01/30/21 07/23/21 mcg/actuation mist for inhalation (Spiriva Respimat) gabapentin 400 mg capsule 400 mg PO TID 06/25/21 07/23/21 lamotrigine 25 mg tablet 50 mg PO BEDTIME 06/25/21 07/23/21 ondansetron HCl 4 mg tablet 4 mg PO Q8H PRN Nausea And Vomiting 07/23/21 07/23/21 Previous Rx's Medication Instructions Recorded azithromycin 500 mg tablet 500 mg PO Q24H 3 days #3 tabs 07/28/21 cefuroxime axetil 500 mg tablet 500 mg PO Q12H 3 days #6 tabs 07/28/21 cefuroxime axetil 250 mg tablet 250 mg PO BID 7 days #14 tabs 09/04/21 Allergies Allergy/AdvReac Type Severity Reaction Status Date / Time shellfish derived Allergy Unknown Verified 06/25/21 09:47 strawberry Allergy Unknown Verified 06/25/21 09:47 Sulfa (Sulfonamide Allergy Unknown Verified 06/25/21 09:47 Antibiotics) Review of Systems Review of Systems: Constitutional: No Fever, No Chills, No Fatigue, No Malaise ENT/Mouth: No Ear Pain, No Nasal Congestion, No Sinus Pain, No Hoarseness, No sore throat, No Rhinorrhea, No Swallowing Difficulty Eyes: No Eye Pain, No Swelling, No Redness, No Vision Changes Cardiovascular: No Chest Pain, No SOB, No Edema, No Palpitations Respiratory: No Cough, No Sputum, No Dyspnea Gastrointestinal: No Nausea, No Vomiting, No Diarrhea, No Constipation, No Abdominal pain Genitourinary: No Dysuria, No Urinary Frequency, No Hematuria, No Urinary Incontinence/retention, No Flank Pain Musculoskeletal: + joint pain, No Myalgias, No Joint Swelling Skin: No Skin Lesions, No rash Neuro: No Weakness, No Numbness, No Paresthesias, No Loss of Consciousness, No Dizziness, + Headache Yes all other systems are reviewed and are negative Neurologic: Denies Abnormal speech present [facility] Past Medical History Attestation statement: The following information was validated with the patient. Medical History Acute respiratory failure with hypoxia Alcohol abuse, uncomplicated Alcoholism Anemia in other chronic diseases classified elsewhere Bacteremia Brief psychotic disorder Cellulitis of unspecified part of limb COVID-19 Dilated cbd, acquired Falls Localized edema Metabolic encephalopathy Non-pressure chronic ulcer of right calf with unspecified severity Opiate dependence Opioid dependence, in remission Other abnormalities of gait and mobility Other chronic pain Personal history of other venous thrombosis and embolism Pulmonary embolus Unsteadiness on feet Social History Social History Household Members: Other Household Members Other:: SNF Housing: [facility] Do you presently have visiting nurse or other home services: No Unable to assess alcohol history related to: Unable to respond and Unknown Patient Tobacco Use Status: Never used Tobacco Tobacco use type: Cigarette Advance Directives: Yes Advance Directives on File: Yes Advance Directives Date on File: 03/14/21 service: No Current occupational status: retired Physical Exam Vital Signs: Vital Signs: Last Vital Signs Temp 98.1 F 09/04/21 12:08 Pulse 65 09/04/21 12:08 Resp 16 09/04/21 12:08 BP 167/96 H 09/04/21 12:08 Pulse Ox 94 09/04/21 12:08 O2 Del Method 09/04/21 12:08 BMI result Body Mass Index 18.0 Const: General: cooperative and no acute distress Orientation/consciousness: patient oriented x3 Limitations: no limitations HEENT: Head: Yes normal to inspection, Yes atraumatic, No Lombardi's sign and No raccoon eyes Ears: hearing grossly normal bilaterally General nose exam: Normal external nose present Face and sinus: Yes normal facial exam Mouth: Normal oral and palatal mucosa present Throat: Yes posterior oropharynx normal, Yes tonsils normal and Yes uvula midline Eyes: General: appearance normal, both eyes and all related structures Pupils: Equal, round and reactive pupils present EOM: EOMs intact bilaterally Neck: Other: + midline cervical spinous tenderness. No appreciable step-off or deformity. No erythema Neck: Yes normal visual inspection, Yes no meningeal signs and No anterior neck swelling Resp: Effort & Inspection: normal respiratory effort and no respiratory distress Auscultation: clear to auscultation bilaterally Cardio: Rate: regular rate Heart sounds: S1 normal heart sound present and S2 normal heart sound present GI: Inspection: Yes normal to inspection Palpation (GI): Soft to palpation, nontender, no guarding and not rigid : General: Yes no CVA tenderness Back/Spine/Pelvis: Other: No midline thoracic/lumbar spinous tenderness/step-off or deformity Back: no CVA tenderness Skin: Rashes: no rashes Wounds: no wounds Neuro: General: patient oriented x3, tone normal, moves all extremities, no meningeal signs, no focal motor deficits and CN's II-XI intact bilaterally Cranial nerves: Yes CN's II-XII intact bilaterally and Yes Equal, round and reactive pupils present Cognition (Neuro): normal cognition Speech: No Abnormal speech present Motor exam (neuro): 5/5 motor strength present throughout Extrem: General: Yes normal to inspection Course Course Course Narrative: CT head/brain wo con / CT cervical spine wo con IMPRESSION: No acute intracranial process seen. ? Exaggerated cervical lordosis. No visible acute fracture or dislocation seen. There is grade 1-2 anterolisthesis C3 over C4.. Mild posterior spondylosis with degenerative disc changes C3-C4, C4-C5, C5-C6 disc levels. -patient provided urine that had an odor, sent for studies > UA is infected > labs and IV Rocephin added -no leukocytosis. Labs otherwise unremarkable. Patient is medically cleared to return to her SNF. Paper prescription for Ceftin provided MDM - Fall MDM Narrative Medical decision making narrative: 71-year-old female with a past medical history of acute respiratory failure with hypoxia, ETOH abuse, bacteremia, psychotic disorder, metabolic encephalopathy, opiate dependence, PAD, DVT, PE, chronic anemia, on Eliquis, presenting to ED from SNF for possible C3 fracture on outpatient x-rays 2 days ago. On exam vital signs stable, ED/nontoxic appearing, + midline cervical spinous tenderness. No focal neuro deficits. Concern for fracture. Rule out ICH Plan: Head/C-spine CT Differential Diagnosis Differential diagnosis: Likely dislocation, compression fracture and concussion without loss of consciousness Medical Records Attestation: I reviewed the patient's medical records. Lab Data Attestation: I reviewed the patient's lab results. Result diagrams: 09/04/21 11:56 09/04/21 11:56 Labs: Lab Results 09/04/21 09/04/21 09/04/21 Range/Units 10:34 11:56 11:56 WBC 6.4 (4.8-10.8) X10*3/uL RBC 3.71 L (4.20-5.50) X10*6/uL Hgb 11.1 L (12.0-16.0) g/dl Hct 35.4 L (37.0-47.0) % MCV 95.4 (80.0-98.0) fL MCH 29.9 (27.0-33.0) pg MCHC 31.4 (31.0-35.0) g/dl RDW 15.0 (11.0-16.0) % Plt Count 214 D (160-400) X10*3/uL MPV 9.2 L (9.4-12.3) fL Immature Gran % (Auto) 0.2 (0.0-0.4) % Neut % (Auto) 60.9 (45-73) % Lymph % (Auto) 28.8 (20-40) % Surry % (Auto) 6.9 (2-11) % Eos % (Auto) 2.4 (0-4) % Baso % (Auto) 0.8 (0-2) % Lymph # (Auto) 1.8 (1.2-4.9) X10*3/uL Surry # (Auto) 0.4 (0.1-1.2) X10*3/uL Eos # (Auto) 0.2 (0.0-0.4) X10*3/uL Baso # (Auto) 0.1 (0.0-0.2) X10*3/uL Abs Immat Gran (auto) 0.01 (0.00-0.03) X10*3/uL Absolute Neuts (auto) 3.9 (2.0-8.3) x10*3/uL Absolute Nucleated RBC 0.000 (0.0-0.012) X10*3/uL Nucleated RBC % (auto) 0.0 (0.0-0.2) /100WBC Sodium 143 (135-145) mmol/L Potassium 4.1 (3.3-5.1) mmol/L Chloride 102 (96-108) mmol/L Carbon Dioxide 36 H (22-29) mmol/L Anion Gap 9 L (12-20) BUN 15 (9-16) mg/dL Creatinine 0.59 (0.5-1.4) mg/dL Estim Creat Clear Calc 77.4 Estimated GFR > 60 Random Glucose 78 (60-115) mg/dL Calcium 8.6 D (8.4-10.2) mg/dL Urine Color YELLOW Urine Appearance CLOUDY Urine pH 8.5 H (5.0-8.0) Ur Specific Irwin 1.015 (1.005-1.025) Urine Protein 2+ H (NEG-TRACE) MG/DL Urine Glucose (UA) NEG (NEG) MG/DL Urine Ketones NEG (NEG) MG/DL Urine Blood 3+ H (NEG) Urine Nitrite POS H (NEG) Ur Leukocyte Esterase 3+ H (NEG) Urine RBC 15-29 H (0) /HPF Urine WBC 15-29 H (0-4) /HPF Ur Squamous Epith Cells TRACE /LPF Calcium Oxalate Crystal TRACE /LPF Amorphous Sediment 4+ /LPF Urine Bacteria 4+ /LPF Discharge Plan Discharge Clinical Impression: Anterolisthesis of cervical spine, Acute UTI Patient Disposition: [facility] Instructions: Fall Prevention for Older Adults (ED), Urinary Tract Infection in Older Adults (ED) Additional Instructions: Your urine is infected, Ceftin is an antibiotic please take as prescribed. Your head CT is unremarkable. Your CT of her neck shows grade 1-2 anterolisthesis over C3-C4, no acute fracture or dislocation Take Tylenol for pain. If symptoms persist or worsen return to the emergency department Prescriptions: New cefuroxime axetil 250 mg tablet 250 mg PO BID 7 Days Qty: 14 0RF No Action ondansetron HCl 4 mg Tablet 4 mg PO Q8H PRN (Reason: Nausea And Vomiting) cefuroxime axetil 500 mg Tablet 500 mg PO Q12H 3 Days Qty: 6 0RF azithromycin 500 mg Tablet 500 mg PO Q24H 3 Days Qty: 3 0RF buspirone 5 mg Tablet 5 mg PO TID polyethylene glycol 3350 [Miralax] 17 gram Powder In Packet 17 g PO DAILY methadone 10 mg Tablet 10 mg PO DAILY PRN (Reason: chronic pain) methadone 10 mg Tablet 10 mg PO BID risperidone 2 mg Tablet 2 mg PO BID levothyroxine 50 mcg Tablet 50 mcg PO DAILY@0600 lisinopril 5 mg Tablet 2.5 mg PO DAILY gabapentin 100 mg Capsule 100 mg PO TID Rx Instructions: take with gabapentin 400 mg alum-mag hydroxide-simeth 200-200-20 mg/5 mL Suspension 30 ml PO Q4H PRN (Reason: GERD) albuterol sulfate 90 mcg/actuation Hfa Aerosol Inhaler 2 puff INHALATION Q4H PRN (Reason: copd) duloxetine 60 mg Capsule,Delayed Release(Dr/Ec) 60 mg PO DAILY Spiriva Respimat 2.5 mcg/actuation Mist 2 puff INHALATION DAILY apixaban 5 mg Tablet 5 mg PO BID gabapentin 400 mg capsule 400 mg PO TID lamotrigine 25 mg tablet 50 mg PO BEDTIME Referrals: Physician,Unknown J [Primary Care Provider] - 3 days
[2021-09-04 10:40] LABS: Appearance Urine CLOUDY; Color Urine YELLOW; Glucose Urine UA NEG (NEG); Leukocyte Esterase Urine 3+ (NEG); Nitrite Urine POS (NEG); PH 8.5 (5.0-8.0); Specific Gravity - Urine 1.015 (1.005-1.025); UACC Culture Trigger YES; Urine Blood 3+ (NEG); Urine Ketones NEG (NEG)
[2021-09-04 10:41] LABS: Urine Protein 2+ MG/DL (NEG-TRACE)
[2021-09-04 10:45] LABS: Amorphous Sediment Urine 4+ /LPF; Bacteria Urine 4+ /LPF; Calcium Oxalate Crystals Urine TRACE /LPF
[2021-09-04 10:47] LABS: Squamous Epithelial Cell Urine TRACE /LPF
[2021-09-04] MEDS: cefTRIAXone sodium 1 GM in 0.9 % Sodium Chloride 50 ML IV (11:47)
[2021-09-04 12:00] LABS: MANUAL DIFF FLAG NO
[2021-09-04 12:03] LABS: Basophils Absolute Auto 0.1 X10*3/uL (0.0-0.2); Basophils Percent Auto 0.8 % (0-2); Eosinophils Absolute Auto 0.2 X10*3/uL (0.0-0.4); Eosinophils Percent Auto 2.4 % (0-4); Hematocrit 35.4 % (37.0-47.0); Hemoglobin 11.1 g/dl (12.0-16.0); Imm Gran Abs Auto 0.01 X10*3/uL (0.00-0.03); Imm Gran Pct Auto 0.2 % (0.0-0.4); Lymphocytes Absolute Auto 1.8 X10*3/uL (1.2-4.9); Lymphocytes Percent Auto 28.8 % (20-40); Mean Corpuscular HGB Conc 31.4 g/dl (31.0-35.0); Mean Corpuscular Hemoglobin 29.9 pg (27.0-33.0); Mean Corpuscular Volume 95.4 fL (80.0-98.0); Mean Platelet Volume 9.2 fL (9.4-12.3); Monocytes Absolute Auto 0.4 X10*3/uL (0.1-1.2); Monocytes Percent Auto 6.9 % (2-11); Neutrophils Absolute Auto 3.9 x10*3/uL (2.0-8.3); Neutrophils Percent Auto 60.9 % (45-73); Platelet Count 214 X10*3/uL (160-400); Red Blood Count 3.71 X10*6/uL (4.20-5.50); White Blood Count 6.4 X10*3/uL (4.8-10.8)
[2021-09-04 12:08] VITALS: BP 167/96; PULSE 65; RESP 16; TEMP 36.7; O2SAT 94
[2021-09-04 12:25] LABS: Anion Gap 9 (12-20); Blood Urea Nitrogen 15 mg/dL (9-16); Calcium 8.6 mg/dL (8.4-10.2); Carbon Dioxide 36 mmol/L (22-29); Chloride 102 mmol/L (96-108); Creatinine Clr Calc Pharmacy 77.4; Estimated Glomerular Filt Rate > 60; Glucose Random 78 mg/dL (60-115); Potassium 4.1 mmol/L (3.3-5.1); Sodium 143 mmol/L (135-145)
== END 2021-09-04 15:44 | disposition skilled nursing facility (03) ==
PROVIDERS: Physician Assistant; Emergency Provider Emergency Medicine
DX: M43.12 Spondylolisthesis, cervical region (principal); N39.0 Urinary tract infection, site not specified; R51.9 Headache, unspecified; F11.20 Opioid dependence, uncomplicated; F10.20 Alcohol dependence, uncomplicated; Z86.718 Personal history of other venous thrombosis and embolism; Z86.711 Personal history of pulmonary embolism; Z79.01 Long term (current) use of anticoagulants; Z79.02 Long term (current) use of antithrombotics/antiplatelets; Z79.899 Other long term (current) drug therapy
CPT/HCPCS: 36415; 70450; 72125; 80048; 81001; 85025; 87086; 96365; 99284; J0696

== ENCOUNTER 2021-09-10 07:15 | Outpatient (REF) | payer MEDICARE, MEDICAID, SELFPAY | END 2021-09-10 07:16 | disposition home or self-care (01) | LOC: HO.MRI 07:15 | PROVIDERS: Visit Provider Nurse Practitioner Gerontology | DX: Z13.89 Encounter for screening for other disorder (principal) ==

== ENCOUNTER 2021-09-26 10:33 | Outpatient (REF) | payer MEDICARE, MEDICAID, SELFPAY ==
--- NOTE | ~2021-09-26 | US_ITS ---
EXAMINATION: COLOR-FLOW DUPLEX IMAGING OF THE BILATERAL LOWER EXTREMITY ARTERIAL SYSTEM. VELOCITY MEASUREMENTS THROUGHOUT THE FEMORAL ARTERIES WITH ANKLE-BRACHIAL PERIPHERAL ARTERIAL TESTING. Interventional Radiologist: James Busch M.D., F.S.I.R., F.A.C.R. CLINICAL INFORMATION: This is a 71-year-old female with peripheral vascular disease. RIGHT FEMORAL RUNOFF VELOCITIES: The right common femoral artery measures 62 cm/s and triphasic. The right profunda femoral artery is 82 cm/s and is biphasic. Right proximal superficial femoral artery is occluded. Mid superficial femoral artery is 22 cm/s and biphasic. Distal right superficial femoral artery measures 22 cm/s and is monophasic. Right popliteal velocity measures 16 cm/s and is monophasic. The posterior tibial artery velocity measures 49 cm/s and was monophasic. The right ankle-brachial index is 0.87. LEFT FEMORAL RUNOFF VELOCITIES: The left common femoral artery measures 62 cm/s and triphasic. The left profunda femoral artery is 23 cm/s and is biphasic. Left proximal superficial femoral artery measures 99 cm/s and biphasic. Mid superficial femoral artery is 62 cm/s and biphasic. Distal left superficial femoral artery measures 40 cm/s and is biphasic. Left popliteal velocity measures 43 cm/s and is biphasic. The posterior tibial artery velocity measures 92 cm/s and was monophasic. The left ankle-brachial index is 1.13. US/US arterial duplex LE BI IMPRESSION: 1. The right superficial femoral artery is occluded. There is a decreased ankle-brachial index on the right. 2. Normal right lower extremity peripheral arterial testing without evidence of hemodynamically significant stenosis.
== END 2021-09-26 10:34 | disposition home or self-care (01) ==
LOC: HO.US 10:33
PROVIDERS: Visit Provider Surgery Vascular Surgery
DX: I73.9 Peripheral vascular disease, unspecified (principal)
CPT/HCPCS: 93923; 93925

== ENCOUNTER 2021-09-28 13:49 | Emergency (ER) | payer MEDICARE, MEDICAID, SELFPAY ==
--- NOTE | ~2021-09-28 | MR_ITS ---
EXAMINATION: MR CERVICAL SPINE WITHOUT CONTRAST CLINICAL INFORMATION: Fall, evaluate for ligamentous injury COMPARISON: Same day CT cervical spine TECHNIQUE: MRI of the cervical spine was obtained using routine sequences without contrast. FINDINGS: Motion degraded Vertebral body heights are preserved. There is anterolisthesis of C3 on C4, likely on the basis of degenerative facet disease. Trace retrolisthesis of C4 on C5 and trace anterolisthesis of C7 on T1. There is an exaggerated cervical lordosis. Heterogeneous marrow signal without suspicious focal osseous lesion There is mild marrow edema involving the odontoid tip, likely related to arthrosis of the atlantodental interval and associated with small retrodental pannus. There is multilevel degenerative disc desiccation and height loss, worst from C3-C4 to C5-C6 with mild endplate marrow edema. Disc osteophyte complexes and ligamentum flavum thickening at C3-C4, C4-C5, and C5-C6 contribute to moderate to severe spinal canal stenosis without cord compression. There is normal caliber and signal the cervical spinal cord within the limitations of motion. Neural foramina are not well evaluated due to motion No prevertebral edema. The anterior and posterior discoligamentous structures appear intact. No abnormality of the cervical paraspinal soft tissues. The vertebral artery flow voids are maintained. The visualized posterior fossa is unremarkable. There is some T2 signal abnormality in the central meliton, likely sequela of microvascular ischemia. MR/MR cervical spine wo con IMPRESSION: Motion degraded examination. No evidence of acute discoligamentous injury of the cervical spine. Multilevel degenerative changes of the cervical spine including anterolisthesis of C3 on C4 and moderate to severe spinal canal narrowing from C3-C4 to C5-C6 without cord compression or definite cord signal abnormality.
--- NOTE | ~2021-09-28 | CT_ITS ---
CT head/brain wo con CLINICAL INFORMATION: Reason for Exam fall, hit head COMPARISON: No prior CT scan available for comparison. TECHNIQUE: Department standard protocol. This CT examination was performed using dose optimization techniques as appropriate, variously including the following: *Automated exposure control *Adjustment of mA and/or kV according to patient size (this includes techniques or standardized protocols for targeted exams where dose is matched to indication/reason for exam; i.e. extremities or head) *Use of iterative reconstruction technique DLP: 636 mGy-cm FINDINGS: CEREBRAL HEMISPHERES: There is no evidence of intra-axial or extra-axial mass, hemorrhage or acute infarct. BRAIN PARENCHYMA: Deep white matter and paraventricular hypoattenuation, nonspecific; most likely changes secondary to chronic ischemia due to microvascular angiopathy. SUBDURAL SPACE: No bleed. BASAL GANGLIA AND PINEAL GLAND: Unremarkable VENTRICLES: Symmetric and normal in size. CEREBELLUM AND BRAINSTEM: No space-occupying mass, hemorrhage or acute infarct. CEREBELLOPONTINE ANGLES: No lesion found. ORBITS: No intraorbital mass. VESSELS: Unremarkable SKULL BASE: Unremarkable INCLUDED SINUSES AT SKULL BASE: Clear SKULL AND SKIN: No fracture or bone lesion found. CT/CT head/brain wo con IMPRESSION: Mild diffuse white matter and periventricular hypoattenuation, nonspecific; most likely sequela of chronic microvascular angiopathy ischemia. No intracranial bleed.
--- NOTE | ~2021-09-28 | XR_ITS ---
EXAMINATION: XR PELVIS CLINICAL INFORMATION: Fall pain COMPARISON: None TECHNIQUE: AP view of the pelvis. FINDINGS: Right hip prosthesis device in place properly positioned. No radiographic evidence of a fracture or dislocation. Mild DJD of left hip and symphysis pubis. Superimposed soft tissue unremarkable. XR/XR pelvis 1-2V IMPRESSION: Right hip prosthesis in place intact. No radiographic evidence of acute fracture.
--- NOTE | ~2021-09-28 | CT_ITS ---
EXAMINATION: CT CERVICAL SPINE WITHOUT CONTRAST CLINICAL INFORMATION: Fall hitting head COMPARISON: September 04, 2021 TECHNIQUE: CT cervical spine with axial and coronal reconstruction. This CT examination was performed using dose optimization techniques as appropriate, variously including the following: *Automated exposure control *Adjustment of mA and/or kV according to patient size (this includes techniques or standardized protocols for targeted exams where dose is matched to indication/reason for exam; i.e. extremities or head) *Use of iterative reconstruction technique DLP: 287 mGy-cm FINDINGS: No abnormal prevertebral soft tissue swelling is seen. The paraspinal muscle fat planes are maintained. No acute cervical spine fracture is noted. There is approximately 4 mm anterior subluxation of C3 on C4. There is loss of the C3-C4 disc space with marginal sclerosis. There is narrowing of the C4-C5 and C5-C6 disc spaces. There is spurring of the joints of Luschka bilaterally at the C5-C6 level causing some anterior neural foraminal encroachment. There is some degenerative change of the right temporomandibular joint. Pterygoid plates intact. CT/CT cervical spine wo con IMPRESSION: No acute cervical spine fracture identified. Multilevel cervical spondylosis as described.
--- NOTE | ~2021-09-28 | XR_ITS ---
EXAMINATION: XR SHOULDER, RIGHT CLINICAL INFORMATION: Fall COMPARISON: None TECHNIQUE: Single frontal view of the right shoulder. FINDINGS: Dysmorphic changes of the right humeral neck, likely an old healed fracture, this has not changed from prior x-ray 07/23/2021. Soft tissue calcification around humeral head probably calcific tendinosis. Exam limited, one view only. Cortical irregularity in the posterior right lower ribs likely an old fractures unchanged. XR/XR shoulder RT 1V IMPRESSION: Limited single view Old fractures. Soft tissue calcifications probably calcific tendinosis.
[2021-09-28 14:00] VITALS: BP 121/87; BP 142/99; PULSE 80; PULSE 81; RESP 17; TEMP 36.9; O2SAT 89; O2SAT 94; BMI 17.9
--- NOTE | 2021-09-28 14:12 | ED.FALL ---
HPI - Fall General Chief Complaint: Fall Stated Complaint: fall Time Seen by Provider: 09/28/21 13:51 Source: patient and EMS Mode of arrival: EMS Limitations: no limitations History of Present Illness HPI Narrative: 71-year-old female with a past medical history of acute respiratory failure with hypoxia, ETOH abuse, bacteremia, psychotic disorder, metabolic encephalopathy, opiate dependence, PAD, DVT, PE, chronic anemia, on Eliquis Who presents from a detention after a fall. Patient tells me she was sitting in her wheelchair when she slipped out of the wheelchair landing on her buttocks and striking her head on the wheelchair. There was no loss of consciousness. She reports right hip pain, right shoulder pain and some neck discomfort. No headache, vision changes, vomiting, chest pain, abdominal pain. Related Data Home Medications Medication Instructions Recorded Confirmed albuterol sulfate 90 mcg/actuation 2 puff inhalation Q4H PRN copd 01/30/21 07/23/21 aerosol inhaler aluminum-mag hydroxide-simethicone 30 ml PO Q4H PRN GERD 01/30/21 07/23/21 200 mg-200 mg-20 mg/5 mL oral susp apixaban 5 mg tablet 5 mg PO BID 01/30/21 07/23/21 buspirone 5 mg tablet 5 mg PO TID 01/30/21 07/23/21 duloxetine 60 mg capsule,delayed 60 mg PO DAILY 01/30/21 07/23/21 release gabapentin 100 mg capsule 100 mg PO TID 01/30/21 07/23/21 levothyroxine 50 mcg tablet 50 mcg PO DAILY@0600 01/30/21 07/23/21 lisinopril 5 mg tablet 2.5 mg PO DAILY 01/30/21 07/23/21 methadone 10 mg tablet 10 mg PO BID 01/30/21 07/23/21 methadone 10 mg tablet 10 mg PO DAILY PRN chronic pain 01/30/21 07/23/21 polyethylene glycol 3350 17 gram 17 g PO DAILY 01/30/21 07/23/21 oral powder packet (Miralax) risperidone 2 mg tablet 2 mg PO BID 01/30/21 07/23/21 tiotropium bromide 2.5 2 puff inhalation DAILY 01/30/21 07/23/21 mcg/actuation mist for inhalation (Spiriva Respimat) gabapentin 400 mg capsule 400 mg PO TID 06/25/21 07/23/21 lamotrigine 25 mg tablet 50 mg PO BEDTIME 06/25/21 07/23/21 ondansetron HCl 4 mg tablet 4 mg PO Q8H PRN Nausea And Vomiting 07/23/21 07/23/21 Previous Rx's Medication Instructions Recorded azithromycin 500 mg tablet 500 mg PO Q24H 3 days #3 tabs 07/28/21 cefuroxime axetil 500 mg tablet 500 mg PO Q12H 3 days #6 tabs 07/28/21 cefuroxime axetil 250 mg tablet 250 mg PO BID 7 days #14 tabs 09/04/21 Allergies Allergy/AdvReac Type Severity Reaction Status Date / Time shellfish derived Allergy Unknown Verified 06/25/21 09:47 strawberry Allergy Unknown Verified 06/25/21 09:47 Sulfa (Sulfonamide Allergy Unknown Verified 06/25/21 09:47 Antibiotics) Review of Systems Review of Systems: Yes all other systems are reviewed and are negative Constitutional: Constitutional: Reports no additional constitutional complaints, Denies body ache(s), Denies chills, Denies fever(s), Denies headache(s) and Denies weakness Eyes: Eyes: Reports no additional eye complaints and Denies change in vision ENT: Reports system reviewed and no additional complaints, except as documented, Denies dizziness, Denies headache(s), Denies nasal congestion, Denies nasal discharge and Denies neck pain Cardiovascular: Cardiovascular: Reports no additional cardiovascular complaints, Denies chest pain, Denies leg edema and Denies dyspnea Respiratory: Respiratory: Reports no additional respiratory complaints, Denies cough and Denies dyspnea Gastrointestinal: Gastrointestinal: Reports no additional gastrointestinal complaints, Denies abdominal pain, Denies diarrhea, Denies nausea and Denies vomiting Genitourinary: Genitourinary: Reports no additional female genitourinary complaints and Denies urinary incontinence Musculoskeletal: Musculoskeletal: Reports no additional musculoskeletal complaints, Denies back pain, Reports arthralgias, Denies joint swelling, Reports limited range of motion, Denies neck pain, Denies numbness and Denies tingling Integumentary/Breasts: Skin/Breast: Reports system reviewed and no additional complaints, except as docu and Denies rash Neurologic: Reports system reviewed and no additional complaints, except as documented, Denies Abnormal speech present, Denies dizziness, Denies headache(s), Denies numbness, Denies tingling and Denies weakness PMFSH Past Medical History Attestation statement: The following information was validated with the patient. Source: old records reviewed and nursing notes reviewed Medical History Acute respiratory failure with hypoxia Alcohol abuse, uncomplicated Alcoholism Anemia in other chronic diseases classified elsewhere Bacteremia Brief psychotic disorder Cellulitis of unspecified part of limb COVID-19 Dilated cbd, acquired Falls Localized edema Metabolic encephalopathy Non-pressure chronic ulcer of right calf with unspecified severity Opiate dependence Opioid dependence, in remission Other abnormalities of gait and mobility Other chronic pain Personal history of other venous thrombosis and embolism Pulmonary embolus Unsteadiness on feet Social History Social History Household Members: Other Household Members Other:: SNF Housing: [facility] Do you presently have visiting nurse or other home services: No Unable to assess alcohol history related to: Unable to respond and Unknown Patient Tobacco Use Status: Never used Tobacco Tobacco use type: Cigarette Advance Directives: Yes Advance Directives on File: Yes Advance Directives Date on File: 03/14/21 service: No Current occupational status: retired Physical Exam Vital Signs: Vital Signs: Last Vital Signs Temp 98.1 F 09/28/21 16:22 Pulse 95 09/28/21 18:10 Resp 18 09/28/21 18:10 BP 131/82 09/28/21 18:10 Pulse Ox 89 L 09/28/21 18:10 O2 Del Method 09/28/21 18:10 BMI result Body Mass Index 17.9 Const: General: cooperative, healthy appearing, comfortable and no acute distress Orientation/consciousness: patient oriented x3 Limitations: no limitations HEENT: Head: Yes normal to inspection, No Lombardi's sign and No raccoon eyes Ears: hearing grossly normal bilaterally and TM's normal bilaterally General nose exam: Normal external nose present Face and sinus: Yes normal facial exam Mouth: Normal oral and palatal mucosa present Throat: Yes posterior oropharynx normal Eyes: General: appearance normal, both eyes and all related structures Pupils: Equal, round and reactive pupils present Neck: Other: Mild tenderness to the cervical spine. Cervical collar in place. Neck: Yes normal visual inspection Chest: Chest palpation & inspection: normal inspection of the chest Resp: Effort & Inspection: normal respiratory effort Auscultation: clear to auscultation bilaterally Cardio: Rate: regular rate Rhythm: regular rhythm Peripheral pulses: Peripheral pulses 2+ throughout GI: Inspection: Yes normal to inspection Palpation (GI): Soft to palpation and nontender Auscultation: normal bowel sounds Back/Spine/Pelvis: Thoracic/Lumbar Spine: thoracic and lumbar spine normal to inspection Skin: General skin exam: no rashes or lesions noted Neuro: General: patient oriented x3, moves all extremities, no focal motor deficits, normal sensation to monofilament and Unable to assess gait Cranial nerves: Yes CN's II-XII intact bilaterally, Yes Equal, round and reactive pupils present, Yes Bilaterally intact EOM present, Yes Nystagmus not present, Yes Normal facial strength present and Yes Midline tongue present Cognition (Neuro): normal cognition Speech: No Abnormal speech present Gait exam (Neuro): Unable to assess gait Motor exam (neuro): 5/5 motor strength present throughout Sensory Exam: Normal double simultaneous stimulation for sensation Extrem: Other: There is some pain to the proximal humerus but there is full range of motion of the affected joint. Neurovascular intact distally. Palpable radial and ulnar pulses. There is some tenderness to the right anterior hip with no shortening, rotation or deformity. Pain is worsened with movement of the extremity. Neurovascular intact distally with palpable pulses. General: Yes normal to inspection Course Course Course Narrative: 1600- CT cervical spine shows approximately 4 mm anterior subluxation of C3 and C4. Discussed case with Dr. Menjivar. C-collar we remaining in place. Patient will go for an MRI of the cervical spine to eval for any additional injury including ligamental injury. Reevaluation(s) Reevaluation #1: MRI shows No evidence of acute discoligamentous injury of the cervical spine. ? Multilevel degenerative changes of the cervical spine including anterolisthesis of C3 on C4 and moderate to severe spinal canal narrowing from C3-C4 to C5-C6 without cord compression or definite cord signal abnormality. - cervical collar was removed. Nursing was concerned because the patient had a room air saturation of 89%. However when we reviewed the records from the short-term rehab the patient is on 3 L of oxygen chronically. She was placed back on her normal oxygen with improvement of her saturations. X-rays of the right shoulder show old fractures with no new fracture. X-rays of the pelvis show no acute fracture. Patient will be discharge back home to her short-term rehab. MDM - Fall MDM Narrative Medical decision making narrative: 71-year-old female here after a mechanical fall with a potential of a head strike with no loss of consciousness but patient is anticoagulated. Complaining of neck pain, right shoulder and right hip pain. Patient will need CT head and cervical spine, shoulder and hip x-rays Medical Records Attestation: I reviewed the patient's medical records. Lab Data Attestation: I reviewed the patient's lab results. Imaging Data Ct cervical spine: Attestation: I personally reviewed and interpreted this imaging study as follows: Radiologist's impression: [address] [address] [address] Scan Report Signed Patient: Edilia Patel MR#: [id number] : 1950 Acct:[id number] Age/Sex: 71 / F ADM Date: 09/28/21 Loc: HO.ED Attending Dr: Ordering Physician: Michelle Lewis NP Date of Service: 09/28/21 Procedure(s): CT cervical spine wo con Accession Number(s): [id number] cc: Michelle Lewis NP~ EXAMINATION: CT CERVICAL SPINE WITHOUT CONTRAST CLINICAL INFORMATION: Fall hitting head? COMPARISON: September 04, 2021? TECHNIQUE: CT cervical spine with axial and coronal reconstruction.? This CT examination was performed using dose optimization techniques as appropriate, variously including the following: *Automated exposure control *Adjustment of mA and/or kV according to patient size (this includes techniques or standardized protocols for targeted exams where dose is matched to indication/reason for exam; i.e. extremities or head) *Use of iterative reconstruction technique DLP: 287 mGy-cm FINDINGS: No abnormal prevertebral soft tissue swelling is seen. The paraspinal muscle fat planes are maintained. No acute cervical spine fracture is noted. There is approximately 4 mm anterior subluxation of C3 on C4. There is loss of the C3-C4 disc space with marginal sclerosis. There is narrowing of the C4-C5 and C5-C6 disc spaces. There is spurring of the joints of Luschka bilaterally at the C5-C6 level causing some anterior neural foraminal encroachment.? There is some degenerative change of the right temporomandibular joint. Pterygoid plates intact. CT/CT cervical spine wo con IMPRESSION: No acute cervical spine fracture identified. ? Multilevel cervical spondylosis as described.? ? CT scan - head: Attestation: I personally reviewed and interpreted this imaging study as follows: Radiologist's impression: [address] [address] [address] Scan Report Signed Patient: Edilia Patel MR#: [id number] : 1950 Acct:[id number] Age/Sex: 71 / F ADM Date: 09/28/21 Loc: HO.ED Attending Dr: Ordering Physician: Michelle Lewis NP Date of Service: 09/28/21 Procedure(s): CT head/brain wo con Accession Number(s): [id number] cc: Michelle Lewis NP~ CT head/brain wo con CLINICAL INFORMATION: Reason for Exam fall, hit head COMPARISON: No prior CT scan available for comparison. TECHNIQUE: Department standard protocol. This CT examination was performed using dose optimization techniques as appropriate, variously including the following: *Automated exposure control *Adjustment of mA and/or kV according to patient size (this includes techniques or standardized protocols for targeted exams where dose is matched to indication/reason for exam; i.e. extremities or head) *Use of iterative reconstruction technique DLP: 636 mGy-cm FINDINGS: ? CEREBRAL HEMISPHERES: There is no evidence of intra-axial or extra-axial mass, hemorrhage or acute infarct. BRAIN PARENCHYMA: Deep white matter and paraventricular hypoattenuation, nonspecific; most likely changes secondary to chronic ischemia due to microvascular angiopathy. SUBDURAL SPACE: No bleed. BASAL GANGLIA AND PINEAL GLAND: Unremarkable VENTRICLES: Symmetric and normal in size. CEREBELLUM AND BRAINSTEM: No space-occupying mass, hemorrhage or acute infarct. CEREBELLOPONTINE ANGLES: No lesion found. ORBITS: No intraorbital mass. VESSELS: Unremarkable SKULL BASE: Unremarkable INCLUDED SINUSES AT SKULL BASE: Clear SKULL AND SKIN: No fracture or bone lesion found. CT/CT head/brain wo con IMPRESSION: Mild diffuse white matter and periventricular hypoattenuation, nonspecific; most likely sequela of chronic microvascular angiopathy ischemia. ? No intracranial bleed. ? pelvix x-ray: Attestation: I personally reviewed and interpreted this imaging study as follows: Radiologist's impression: FINDINGS: Right hip prosthesis device in place properly positioned. No radiographic evidence of a fracture or dislocation. Mild DJD of left hip and symphysis pubis. Superimposed soft tissue unremarkable.? XR/XR pelvis 1-2V IMPRESSION: Right hip prosthesis in place intact. ? No radiographic evidence of acute fracture. shoulder xray right: Attestation: I personally reviewed and interpreted this imaging study as follows: Radiologist's impression: [address] [address] XRay Report Signed Patient: Edilia Patel MR#: [id number] : 1950 Acct:[id number] Age/Sex: 71 / F ADM Date: 09/28/21 Loc: HO.ED Attending Dr: Ordering Physician: Michelle Lewis NP Date of Service: 09/28/21 Procedure(s): XR shoulder RT 1V Accession Number(s): [id number] cc: Michelle Lewis NP~ EXAMINATION: XR SHOULDER, RIGHT CLINICAL INFORMATION: Fall? COMPARISON: None? TECHNIQUE: Single frontal view of the right shoulder. FINDINGS: Dysmorphic changes of the right humeral neck, likely an old healed fracture, this has not changed from prior x-ray 07/23/2021. Soft tissue calcification around humeral head probably calcific tendinosis. Exam limited, one view only. Cortical irregularity in the posterior right lower ribs likely an old fractures unchanged.? XR/XR shoulder RT 1V IMPRESSION: Limited single view Old fractures. ? Soft tissue calcifications probably calcific tendinosis. ? MRI cervical spine: Attestation: I personally reviewed and interpreted this imaging study as follows: Radiologist's impression: FINDINGS: Motion degraded Vertebral body heights are preserved. There is anterolisthesis of C3 on C4, likely on the basis of degenerative facet disease. Trace retrolisthesis of C4 on C5 and trace anterolisthesis of C7 on T1. There is an exaggerated cervical lordosis. Heterogeneous marrow signal without suspicious focal osseous lesion There is mild marrow edema involving the odontoid tip, likely related to arthrosis of the atlantodental interval and associated with small retrodental pannus. There is multilevel degenerative disc desiccation and height loss, worst from C3-C4 to C5-C6 with mild endplate marrow edema. Disc osteophyte complexes and ligamentum flavum thickening at C3-C4, C4-C5, and C5-C6 contribute to moderate to severe spinal canal stenosis without cord compression. There is normal caliber and signal the cervical spinal cord within the limitations of motion. Neural foramina are not well evaluated due to motion No prevertebral edema. The anterior and posterior discoligamentous structures appear intact. No abnormality of the cervical paraspinal soft tissues. The vertebral artery flow voids are maintained. The visualized posterior fossa is unremarkable. There is some T2 signal abnormality in the central meliton, likely sequela of microvascular ischemia. MR/MR cervical spine wo con IMPRESSION: ? Motion degraded examination. ? No evidence of acute discoligamentous injury of the cervical spine. ? Multilevel degenerative changes of the cervical spine including anterolisthesis of C3 on C4 and moderate to severe spinal canal narrowing from C3-C4 to C5-C6 without cord compression or definite cord signal abnormality. Discharge Plan Discharge Clinical Impression: Fall, Contusion of right shoulder, Contusion of hip, right Patient Disposition: Xfer [facility] Transfer Details: [place] Instructions: Contusion in Adults (ED), Fall Prevention (ED), Hip Contusion (ED) Additional Instructions: X-ray show no bony fractures. Prescriptions: No [facility] ondansetron HCl 4 mg Tablet 4 mg PO Q8H PRN (Reason: Nausea And Vomiting) cefuroxime axetil 500 mg Tablet 500 mg PO Q12H 3 Days Qty: 6 0RF azithromycin 500 mg Tablet 500 mg PO Q24H 3 Days Qty: 3 0RF buspirone 5 mg Tablet 5 mg PO TID polyethylene glycol 3350 [Miralax] 17 gram Powder In Packet 17 g PO DAILY methadone 10 mg Tablet 10 mg PO DAILY PRN (Reason: chronic pain) methadone 10 mg Tablet 10 mg PO BID risperidone 2 mg Tablet 2 mg PO BID levothyroxine 50 mcg Tablet 50 mcg PO DAILY@0600 lisinopril 5 mg Tablet 2.5 mg PO DAILY gabapentin 100 mg Capsule 100 mg PO TID Rx Instructions: take with gabapentin 400 mg alum-mag hydroxide-simeth 200-200-20 mg/5 mL Suspension 30 ml PO Q4H PRN (Reason: GERD) albuterol sulfate 90 mcg/actuation Hfa Aerosol Inhaler 2 puff INHALATION Q4H PRN (Reason: copd) duloxetine 60 mg Capsule,Delayed Release(Dr/Ec) 60 mg PO DAILY Spiriva Respimat 2.5 mcg/actuation Mist 2 puff INHALATION DAILY apixaban 5 mg Tablet 5 mg PO BID cefuroxime axetil 250 mg tablet 250 mg PO BID 7 Days Qty: 14 0RF gabapentin 400 mg capsule 400 mg PO TID lamotrigine 25 mg tablet 50 mg PO BEDTIME
[2021-09-28 16:22] VITALS: BP 169/96; PULSE 79; RESP 17; TEMP 36.7; O2SAT 93
[2021-09-28 18:10] VITALS: BP 131/82; PULSE 95; RESP 18; O2SAT 89
[2021-09-28 18:11] VITALS: O2SAT 95
--- NOTE | 2021-09-28 18:17 | PC.NURSE ---
Provider at bedside. Collar removed. Pt able to eat and drink per [facility] Martinez.
--- NOTE | 2021-09-28 18:47 | PC.NURSE ---
[facility] at 1845. [facility] stated they are going to try to pass off the call another company due to lack of BLS trucks
[2021-09-28 19:48] VITALS: BP 157/111; PULSE 109; RESP 18; TEMP 37.8; O2SAT 94
--- NOTE | 2021-09-28 20:08 | PC.NURSE ---
Checked on pt, noticed she was wet. I cleaned the patient and placed a purewick with her. Pt is aware what the purewick is for and tolerated the bed change well. Obtained pt's blood pressure before the bed change, it was high on both right and left side. Luis Eduardo Bejarano. aware. SG
[2021-09-28] MEDS: Apixaban 5 MG TABLET PO (20:59)
[2021-09-28] MEDS: Gabapentin 400 MG CAPSULE PO (20:59)
[2021-09-28] MEDS: busPIRone HCl 5 MG TABLET PO (20:59)
[2021-09-28] MEDS: lisinopriL 5 MG TABLET PO (20:59)
[2021-09-28] MEDS: traMADoL HCL 50 MG TABLET PO (20:59)
[2021-09-29 08:51] VITALS: BP 155/96; PULSE 80; RESP 16; TEMP 36.9; O2SAT 98
== END 2021-09-29 09:12 | disposition skilled nursing facility (03) ==
PROVIDERS: Emergency Provider Emergency Medicine; PCP Family Medicine
DX: S40.011A Contusion of right shoulder, initial encounter (principal); S70.01XA Contusion of right hip, initial encounter; W05.0XXA Fall from non-moving wheelchair, initial encounter; M54.2 Cervicalgia; M25.551 Pain in right hip; M47.812 Spondylosis without myelopathy or radiculopathy, cervical region; R26.81 Unsteadiness on feet; Y93.9 Activity, unspecified; Y92.129 Unspecified place in nursing home as the place of occurrence of the external cause; Y99.9 Unspecified external cause status; Z86.718 Personal history of other venous thrombosis and embolism; Z86.711 Personal history of pulmonary embolism; Z79.01 Long term (current) use of anticoagulants
CPT/HCPCS: 70450; 72125; 72141; 72170; 73020; 99284; 99285

== ENCOUNTER 2021-10-03 07:06 | Outpatient (REF) | payer MEDICARE, MEDICAID, SELFPAY ==
--- NOTE | ~2021-10-03 | XR_ITS ---
EXAMINATION: XR PRE-MRI SCREENING CLINICAL INFORMATION: Pre-MRI screening. COMPARISON: CT chest dated 07/23/2021. Pelvic radiographs dated 09/28/2021. TECHNIQUE: AP views of the chest and abdomen with cross-table lateral views of the chest. FINDINGS: No radiopaque/metallic foreign body or surgical hardware within the chest or abdomen. Right hip arthroplasty and cerclage wire. Elevation of the right hemidiaphragm. No pleural effusion or pneumothorax. No focal airspace consolidation. Possible distal left rib fractures. Evaluation limited on plain radiographs. Nonobstructive bowel gas pattern. Moderate air and stool throughout the bowel. XR/XR pre mri screening IMPRESSION: No radiopaque foreign body or metallic object. Right hip arthroplasty. Moderate air and stool throughout the bowel. Possible nondisplaced left rib fractures.
--- NOTE | ~2021-10-03 | MR_ITS ---
EXAMINATION: MR ABDOMEN WITHOUT CONTRAST CLINICAL INFORMATION: Dilated bile ducts COMPARISON: Previous CT of the abdomen and pelvis November 2020 TECHNIQUE: MR abdomen is performed without gadolinium contrast. MRCP sequences were also performed. FINDINGS: LUNG BASES: The visualized lung bases are unremarkable. LIVER, GALLBLADDER, AND BILIARY TREE: The liver is normal in size, smooth in contour, and normal in signal. No focal hepatic lesion. There is intra and extrahepatic biliary duct dilatation. The common bile duct measures up to 11 mm and is dilated down to the head of the pancreas. No common bile duct stone is seen. The gallbladder is upper normal in size. No gallstones are seen. The gallbladder wall does not appear thickened. There is no pericholecystic fluid. PANCREAS: The main pancreatic duct is slightly dilated in the head of the pancreas measuring 4 -5 mm. The pancreas is otherwise unremarkable. SPLEEN: Unremarkable. ADRENAL GLANDS: Unremarkable. KIDNEYS AND URETERS: The kidneys are normal in size and shape. No hydronephrosis. No perinephric stranding. GASTROINTESTINAL TRACT: No bowel obstruction. No ascites or fluid collection. ABDOMINAL WALL: No significant hernia is appreciated. LYMPH NODES: No lymphadenopathy. VASCULAR: Unremarkable. OSSEOUS STRUCTURES: Marrow signal normal. There is scoliosis and degenerative changes of the spine. MR/MR abdomen wo con IMPRESSION: Limited exam due to respiratory motion artifact. Intra and extrahepatic biliary duct dilatation. Common bile duct is dilated down to the head of the pancreas and measures 11 mm. Mild dilatation of the main pancreatic duct in the head of the pancreas measuring 4 to 5 mm. This is similar to CT scan November 2020. ERCP with brushings should be considered. Upper normal-size gallbladder. No gallstones or common bile duct stone.
== END 2021-10-03 07:07 | disposition home or self-care (01) ==
LOC: HO.MRI 07:06
PROVIDERS: Visit Provider Nurse Practitioner Gerontology
DX: Q44.5 Other congenital malformations of bile ducts (principal)
CPT/HCPCS: 74181

== ENCOUNTER 2021-10-07 13:13 | Emergency (ER) | payer MEDICARE, MEDICAID, SELFPAY ==
--- NOTE | ~2021-10-07 | CT_ITS ---
EXAMINATION: CT HEAD WITHOUT CONTRAST CT CERVICAL SPINE WITHOUT CONTRAST CLINICAL INFORMATION: Reason for Exam left facial swelling, ?fall COMPARISON: CT of the head and cervical spine done on 09/28/2021. TECHNIQUE: Imaging was performed from the skull base to vertex without intravenous administration of contrast. In addition, helical noncontrast CT imaging was acquired through the cervical spine and source images were reviewed along with axial reconstructions and sagittal and coronal MPRs. This CT examination was performed using dose optimization techniques as appropriate, variously including the following: *Automated exposure control. *Adjustment of mA and/or kV according to patient size (this includes techniques or standardized protocols for targeted exams where dose is matched to indication/reason for exam; i.e. extremities or head). *Use of iterative reconstruction technique. Total exam dose-length product 1400 mGy-cm FINDINGS: HEAD: No intracranial mass, hemorrhage, or midline shift is visualized. The ventricles and sulci are within normal limits. Bilateral periventricular, subcortical deep white matter near symmetric hypodensities are present, most consistent with chronic microvascular deep white matter ischemia.. No extra-axial collections are identified. The paranasal sinuses and mastoid air cells are well aerated. Asymmetric soft tissue swelling is present over the left supraorbital, frontal scalp consistent with soft tissue hematoma without any underlying fracture. CERVICAL SPINE: Abnormal. Persistent grade 1-2 anterolisthesis of C3 over C4 vertebral body, underlying bilateral facet joint arthritic changes with possible fusion at C3-4 and chronic degenerative spondylosis at C3-4 disc space appear unchanged since 09/28/2021. The remainder of the vertebrae show satisfactory alignment. Moderate degenerative spondylosis related changes are also noted throughout the remainder of the cervical spine with underlying facet joint arthritic changes bilaterally, unchanged since 09/28/2021. The heights of the cervical vertebrae are well-maintained. Prespinal soft tissues are unremarkable. There is no evidence of acute cervical spine fracture. No prevertebral or paravertebral soft tissue abnormality is identified. Limited assessment of the lung apices is unremarkable. CT/CT cervical spine wo con IMPRESSION: 1. No acute intracranial pathology. No significant change since prior CT of the head done on 09/28/2021. 2. Persistent grade 1-2 anterolisthesis of C3 over C4, underlying bilateral facet joint arthritic changes with possible fusion, and chronic degenerative spondylosis at C3-C4 disc space appear stable since 09/28/2021. 3. Moderate degenerative spondylosis throughout the remainder of the cervical spine. 4. No CT evidence of any acute cervical spine fracture or prespinal soft tissue hematoma.
[2021-10-07 13:32] VITALS: BP 155/99; BP 160/100; PULSE 86; RESP 16; TEMP 36.8; O2SAT 96; BMI 23.0
[2021-10-07 13:41] VITALS: BP 155/99; PULSE 91; RESP 16; TEMP 36.8; O2SAT 94
--- NOTE | 2021-10-07 13:46 | PC.NURSE ---
patient alert to self . poor historian medical history of metabolic encepholopathy. pearrla . irregular rate of 87-88 beats per minutes . lungs clear . skin pink warm and dry . skin above left eye swollen , red and severally raised . abdomen soft non tender , positive bowel sounds . patient transported to CT for images . patient aware of plan of care .
--- NOTE | 2021-10-07 13:52 | ED_ITS ---
HPI - General Adult General Chief complaint: General Medical Stated complaint: head swelling Time Seen by Provider: 10/07/21 13:40 Source: EMS Mode of arrival: EMS Limitations: altered mental status History of Present Illness HPI narrative: 71-year-old female coming from a [facility] with a past medical history of acute respiratory failure with hypoxia, ETOH abuse, bacteremia, psychotic disorder, metabolic encephalopathy, opiate dependence, PAD, DVT, PE, chronic anemia, on Eliquis who presents from a [facility] with concern for left facial swelling noted today by [facility] staff. Patient is confused at baseline. She does not recall if she had any fall or injury. Staff does not report any fall or injury. Patient reports some slight discomfort over the swelling. She denies any headache, neck pain, chest pain, back pain, abdominal pain, weakness, vision changes, vomiting. Patient is on Eliquis Related Data Home Medications Medication Instructions Recorded Confirmed albuterol sulfate 90 mcg/actuation 2 puff inhalation Q4H PRN copd 01/30/21 07/23/21 aerosol inhaler aluminum-mag hydroxide-simethicone 30 ml PO Q4H PRN GERD 01/30/21 07/23/21 200 mg-200 mg-20 mg/5 mL oral susp apixaban 5 mg tablet 5 mg PO BID 01/30/21 07/23/21 buspirone 5 mg tablet 5 mg PO TID 01/30/21 07/23/21 duloxetine 60 mg capsule,delayed 60 mg PO DAILY 01/30/21 07/23/21 release gabapentin 100 mg capsule 100 mg PO TID 01/30/21 07/23/21 levothyroxine 50 mcg tablet 50 mcg PO DAILY@0600 01/30/21 07/23/21 lisinopril 5 mg tablet 2.5 mg PO DAILY 01/30/21 07/23/21 methadone 10 mg tablet 10 mg PO BID 01/30/21 07/23/21 methadone 10 mg tablet 10 mg PO DAILY PRN chronic pain 01/30/21 07/23/21 polyethylene glycol 3350 17 gram 17 g PO DAILY 01/30/21 07/23/21 oral powder packet (Miralax) risperidone 2 mg tablet 2 mg PO BID 01/30/21 07/23/21 tiotropium bromide 2.5 2 puff inhalation DAILY 01/30/21 07/23/21 mcg/actuation mist for inhalation (Spiriva Respimat) gabapentin 400 mg capsule 400 mg PO TID 06/25/21 07/23/21 lamotrigine 25 mg tablet 50 mg PO BEDTIME 06/25/21 07/23/21 ondansetron HCl 4 mg tablet 4 mg PO Q8H PRN Nausea And Vomiting 07/23/21 07/23/21 Previous Rx's Medication Instructions Recorded azithromycin 500 mg tablet 500 mg PO Q24H 3 days #3 tabs 07/28/21 cefuroxime axetil 500 mg tablet 500 mg PO Q12H 3 days #6 tabs 07/28/21 cefuroxime axetil 250 mg tablet 250 mg PO BID 7 days #14 tabs 09/04/21 Allergies Allergy/AdvReac Type Severity Reaction Status Date / Time shellfish derived Allergy Unknown Verified 06/25/21 09:47 strawberry Allergy Unknown Verified 06/25/21 09:47 Sulfa (Sulfonamide Allergy Unknown Verified 06/25/21 09:47 Antibiotics) Review of Systems Review of Systems: Yes Unobtainable due to mental status PMFSH Past Medical History Attestation statement: The following information was validated with the patient. Source: old records reviewed and nursing notes reviewed Medical History Acute respiratory failure with hypoxia Alcohol abuse, uncomplicated Alcoholism Anemia in other chronic diseases classified elsewhere Bacteremia Brief psychotic disorder Cellulitis of unspecified part of limb COVID-19 Dilated cbd, acquired Falls Localized edema Metabolic encephalopathy Non-pressure chronic ulcer of right calf with unspecified severity Opiate dependence Opioid dependence, in remission Other abnormalities of gait and mobility Other chronic pain Personal history of other venous thrombosis and embolism Pulmonary embolus Unsteadiness on feet Social History Social History Household Members: Other Household Members Other:: SNF Housing: Prison Do you presently have visiting nurse or other home services: No Unable to assess alcohol history related to: Unable to respond and Unknown Alcohol intake: former Patient Tobacco Use Status: Never used Tobacco Tobacco use type: Cigarette Advance Directives: Yes Advance Directives on File: Yes Advance Directives Date on File: 03/14/21 service: No Current occupational status: retired Physical Exam ED Vital Signs: Vital Signs - 24 hr 10/07/21 13:32 10/07/21 13:41 10/07/21 17:07 Temperature 98.3 F 98.3 F 98.1 F Pulse Rate 86 91 74 Respiratory Rate 16 16 16 Blood Pressure 155/99 H 155/99 H 151/99 H Pulse Oximetry 96 94 99 Oxygen Delivery Method Nasal Cannula Nasal Cannula Room Air Oxygen Flow Rate 2 BMI result Body Mass Index 23.0 Const General: alert Orientation/consciousness: oriented to person Limitations: altered mental status [facility] Head: No Lombardi's sign and No raccoon eyes Head images: 1. periorbital swelling, ecchymosis, abrasion noted over the superficial surface of the skin with tenderness to palpitation. No bony tenderness or crepitus. Ears: hearing grossly normal bilaterally and TM's normal bilaterally General nose exam: Normal external nose present Mouth: Normal oral and palatal mucosa present Throat: Yes posterior oropharynx normal, Yes tonsils normal and Yes uvula midline Eyes General: appearance normal, both eyes and all related structures Pupils: Equal, round and reactive pupils present Neck Other: Cervical collar in place- no midline tenderness, step-offs deformities Neck: Yes normal visual inspection and Yes full ROM Chest Chest palpation & inspection: normal inspection of the chest Resp Effort & Inspection: normal respiratory effort Cardio Peripheral pulses: Peripheral pulses 2+ throughout GI Inspection: Yes normal to inspection Palpation (GI): Soft to palpation and nontender Back/Spine/Pelvis Thoracic/Lumbar Spine: thoracic and lumbar spine normal to inspection Skin General skin exam: no rashes or lesions noted Neuro General: oriented to person, moves all extremities and Unable to assess gait Cranial nerves: Yes CN's II-XII intact bilaterally, Yes Equal, round and reactive pupils present, Yes Bilaterally intact EOM present, Yes Nystagmus not present, Yes Normal facial strength present and Yes Midline tongue present Gait exam (Neuro): Unable to assess gait Motor exam (neuro): 5/5 motor strength present throughout Sensory Exam: Normal double simultaneous stimulation for sensation Course Course Course Narrative: CT head and neck show no acute finding. Labs are unremarkable. EKG shows no ischemic changes. As we are unclear why the patient fell she will have a repeat troponin drawn. If normal plan will be discharge back to her custodial facility. Reevaluation(s) Reevaluation #1: 3603- repeat troponin unchanged. Plan for discharge back to [facility]. Medical Decision Making MDM Narrative Medical decision making narrative: 71-year-old female here with left-sided facial swelling from an unknown cause. On exam patient does have some left periorbital swelling, bruising, tenderness to palpation. She is confused at baseline and unable to determine any pre fall symptoms. Patient is at baseline ow per staff. Cervical collar in place from EMS. will check CT head and cervical spine. Will obtain labs an EKG. Consider syncope, mechanical fall, fracture, contusion, [facility] Medical Records Medical records reviewed: Yes I reviewed the patient's medical records. Lab Data Lab results reviewed: Yes I reviewed the patient's lab results. Result diagrams: 10/07/21 14:32 10/07/21 14:32 Labs: Lab Results 10/07/21 10/07/21 10/07/21 Range/Units 14:32 14:32 14:32 WBC 7.3 (4.8-10.8) X10*3/uL RBC 4.52 D (4.20-5.50) X10*6/uL Hgb 13.3 (12.0-16.0) g/dl Hct 41.7 (37.0-47.0) % MCV 92.3 (80.0-98.0) fL MCH 29.4 (27.0-33.0) pg MCHC 31.9 (31.0-35.0) g/dl RDW 14.0 (11.0-16.0) % Plt Count 233 (160-400) X10*3/uL MPV 9.9 (9.4-12.3) fL Immature Gran % (Auto) 0.3 (0.0-0.4) % Neut % (Auto) 72.8 (45-73) % Lymph % (Auto) 18.4 L (20-40) % [place] % (Auto) 7.4 (2-11) % Eos % (Auto) 0.3 (0-4) % Baso % (Auto) 0.8 (0-2) % Lymph # (Auto) 1.3 (1.2-4.9) X10*3/uL [place] # (Auto) 0.5 (0.1-1.2) X10*3/uL Eos # (Auto) 0.0 (0.0-0.4) X10*3/uL Baso # (Auto) 0.1 (0.0-0.2) X10*3/uL Abs Immat Gran (auto) 0.02 (0.00-0.03) X10*3/uL Absolute Neuts (auto) 5.3 (2.0-8.3) x10*3/uL Absolute Nucleated RBC 0.000 (0.0-0.012) X10*3/uL Nucleated RBC % (auto) 0.0 (0.0-0.2) /100WBC Sodium 142 (135-145) mmol/L Potassium 3.7 (3.3-5.1) mmol/L Chloride 101 (96-108) mmol/L Carbon Dioxide 32 H (22-29) mmol/L Anion Gap 13 (12-20) BUN 11 (9-16) mg/dL Creatinine 0.59 (0.5-1.4) mg/dL Estim Creat Clear Calc 73.4 Estimated GFR > 60 Random Glucose 101 (60-115) mg/dL Calcium 8.7 (8.4-10.2) mg/dL Troponin I High Sens 13.2 D (<3.5-17.0) ng/L 10/07/21 Range/Units 17:27 WBC (4.8-10.8) X10*3/uL RBC (4.20-5.50) X10*6/uL Hgb (12.0-16.0) g/dl Hct (37.0-47.0) % MCV (80.0-98.0) fL MCH (27.0-33.0) pg MCHC (31.0-35.0) g/dl RDW (11.0-16.0) % Plt Count (160-400) X10*3/uL MPV (9.4-12.3) fL Immature Gran % (Auto) (0.0-0.4) % Neut % (Auto) (45-73) % Lymph % (Auto) (20-40) % [place] % (Auto) (2-11) % Eos % (Auto) (0-4) % Baso % (Auto) (0-2) % Lymph # (Auto) (1.2-4.9) X10*3/uL [place] # (Auto) (0.1-1.2) X10*3/uL Eos # (Auto) (0.0-0.4) X10*3/uL Baso # (Auto) (0.0-0.2) X10*3/uL Abs Immat Gran (auto) (0.00-0.03) X10*3/uL Absolute Neuts (auto) (2.0-8.3) x10*3/uL Absolute Nucleated RBC (0.0-0.012) X10*3/uL Nucleated RBC % (auto) (0.0-0.2) /100WBC Sodium (135-145) mmol/L Potassium (3.3-5.1) mmol/L Chloride (96-108) mmol/L Carbon Dioxide (22-29) mmol/L Anion Gap (12-20) BUN (9-16) mg/dL Creatinine (0.5-1.4) mg/dL Estim Creat Clear Calc Estimated GFR Random Glucose (60-115) mg/dL Calcium (8.4-10.2) mg/dL Troponin I High Sens 18.9 H (<3.5-17.0) ng/L Imaging Data CT head/neck: Attestation: I personally reviewed and interpreted this imaging study as follows: Radiologist's impression: IMPRESSION: 1. No acute intracranial pathology. No significant change since prior CT of the head done on 09/28/2021. 2. Persistent grade 1-2 anterolisthesis of C3 over C4, underlying bilateral facet joint arthritic changes with possible fusion, and chronic degenerative spondylosis at C3-C4 disc space appear stable since 09/28/2021. 3. Moderate degenerative spondylosis throughout the remainder of the cervical spine. 4. No CT evidence of any acute cervical spine fracture or prespinal soft tissue hematoma. ECG Data Attestation: I personally reviewed and interpreted this ECG as follows: Interpretation: normal sinus rhythm with a rate of 80, normal NH, normal QRS, normal QT. Nonspecific ST changes which are unchanged from EKG 07/23/2021 Discharge Plan Discharge Clinical Impression: Contusion of head Patient Disposition: Xfer SNF Prescriptions: No Action ondansetron HCl 4 mg Tablet 4 mg PO Q8H PRN (Reason: Nausea And Vomiting) cefuroxime axetil 500 mg Tablet 500 mg PO Q12H 3 Days Qty: 6 0RF azithromycin 500 mg Tablet 500 mg PO Q24H 3 Days Qty: 3 0RF buspirone 5 mg Tablet 5 mg PO TID polyethylene glycol 3350 [Miralax] 17 gram Powder In Packet 17 g PO DAILY methadone 10 mg Tablet 10 mg PO DAILY PRN (Reason: chronic pain) methadone 10 mg Tablet 10 mg PO BID risperidone 2 mg Tablet 2 mg PO BID levothyroxine 50 mcg Tablet 50 mcg PO DAILY@0600 lisinopril 5 mg Tablet 2.5 mg PO DAILY gabapentin 100 mg Capsule 100 mg PO TID Rx Instructions: take with gabapentin 400 mg alum-mag hydroxide-simeth 200-200-20 mg/5 mL Suspension 30 ml PO Q4H PRN (Reason: GERD) albuterol sulfate 90 mcg/actuation Hfa Aerosol Inhaler 2 puff INHALATION Q4H PRN (Reason: copd) duloxetine 60 mg Capsule,Delayed Release(Dr/Ec) 60 mg PO DAILY Spiriva Respimat 2.5 mcg/actuation Mist 2 puff INHALATION DAILY apixaban 5 mg Tablet 5 mg PO BID cefuroxime axetil 250 mg tablet 250 mg PO BID 7 Days Qty: 14 0RF gabapentin 400 mg capsule 400 mg PO TID lamotrigine 25 mg tablet 50 mg PO BEDTIME
--- NOTE | 2021-10-07 13:57 | ECG_ITS ---
Test Reason : head swelling Blood Pressure : / mmHG Vent. Rate : 080 BPM Atrial Rate : 080 BPM P-R Int : 140 ms QRS Dur : 092 ms QT Int : 390 ms P-R-T Axes : 052 -58 -18 degrees QTc Int : 449 ms Normal sinus rhythm Incomplete right bundle branch block Left anterior fascicular block Nonspecific T wave abnormality Abnormal ECG When compared with ECG of 23-JUL-2021 14:39, Left anterior fascicular block is now Present Referred By: Michelle Lewis Electronically Signed By:BHAVANA DIETZ
[2021-10-07 14:41] LABS: MANUAL DIFF FLAG NO
[2021-10-07 14:44] LABS: Basophils Absolute Auto 0.1 X10*3/uL (0.0-0.2); Basophils Percent Auto 0.8 % (0-2); Eosinophils Percent Auto 0.3 % (0-4); Hematocrit 41.7 % (37.0-47.0); Hemoglobin 13.3 g/dl (12.0-16.0); Imm Gran Abs Auto 0.02 X10*3/uL (0.00-0.03); Imm Gran Pct Auto 0.3 % (0.0-0.4); Lymphocytes Absolute Auto 1.3 X10*3/uL (1.2-4.9); Lymphocytes Percent Auto 18.4 % (20-40); Mean Corpuscular HGB Conc 31.9 g/dl (31.0-35.0); Mean Corpuscular Hemoglobin 29.4 pg (27.0-33.0); Mean Corpuscular Volume 92.3 fL (80.0-98.0); Mean Platelet Volume 9.9 fL (9.4-12.3); Monocytes Absolute Auto 0.5 X10*3/uL (0.1-1.2); Monocytes Percent Auto 7.4 % (2-11); Neutrophils Absolute Auto 5.3 x10*3/uL (2.0-8.3); Neutrophils Percent Auto 72.8 % (45-73); Platelet Count 233 X10*3/uL (160-400); Red Blood Count 4.52 X10*6/uL (4.20-5.50); White Blood Count 7.3 X10*3/uL (4.8-10.8)
[2021-10-07 15:13] LABS: Anion Gap 13 (12-20); Blood Urea Nitrogen 11 mg/dL (9-16); Calcium 8.7 mg/dL (8.4-10.2); Carbon Dioxide 32 mmol/L (22-29); Chloride 101 mmol/L (96-108); Creatinine Clr Calc Pharmacy 73.4; Estimated Glomerular Filt Rate > 60; Glucose Random 101 mg/dL (60-115); Potassium 3.7 mmol/L (3.3-5.1); Sodium 142 mmol/L (135-145)
[2021-10-07 15:18] LABS: Troponin-I High Sensitivity 13.2 ng/L (<3.5-17.0)
[2021-10-07 17:07] VITALS: BP 151/99; PULSE 74; RESP 16; TEMP 36.7; O2SAT 99
[2021-10-07 17:57] LABS: Troponin-I High Sensitivity 18.9 ng/L (<3.5-17.0)
--- NOTE | 2021-10-07 18:46 | PC.NURSE ---
c-spin cleared by provider EVER Shultz . collar removed . patient aware of plan for discharge
[2021-10-07 18:47] VITALS: BP 148/95; PULSE 73; RESP 16; O2SAT 95
--- NOTE | 2021-10-07 19:05 | PC.NURSE ---
rn to rn report given to gabby cordoba. pt aware of plan of care for transfer to [facility] via ambulance.
== END 2021-10-07 22:13 | disposition skilled nursing facility (03) ==
PROVIDERS: Nurse Practitioner Family; Emergency Provider Emergency Medicine; PCP Internal Medicine
DX: S00.93XA Contusion of unspecified part of head, initial encounter (principal); X58.XXXA Exposure to other specified factors, initial encounter; Y93.9 Activity, unspecified; Y92.122 Bedroom in nursing home as the place of occurrence of the external cause; Y99.9 Unspecified external cause status
CPT/HCPCS: 36415; 70450; 72125; 80048; 84484; 85025; 93005; 99284

== ENCOUNTER → 2021-10-15 10:26 | Outpatient (BNVA) | payer MEDICARE, MEDICAID, SELFPAY | PROVIDERS: PCP Internal Medicine; Visit Provider Surgery Vascular Surgery | DX: I73.9 Peripheral vascular disease, unspecified (principal); Z86.711 Personal history of pulmonary embolism; Z86.718 Personal history of other venous thrombosis and embolism; Z79.01 Long term (current) use of anticoagulants | CPT/HCPCS: 99212 ==

== ENCOUNTER 2021-12-07 08:26 | Emergency (ER) | payer MEDICARE, MEDICAID, SELFPAY ==
--- NOTE | ~2021-12-07 | XR_ITS ---
EXAMINATION: CHEST AND RIGHT HIP WITH PELVIS. CLINICAL INFORMATION: Fall. COMPARISON: None TECHNIQUE: Chest the one view. AP pelvis and right hip 3 views. FINDINGS: Chest: The lungs are hypoexpanded clear. The heart size and progress clarities normal. No gross bony abnormality seen. AP pelvis: There is a total right hip prosthesis in satisfactory alignment. The left hip joint space is maintained. SI joints are symmetrical. AP and frog-leg views right hip reveals no's hip prosthesis dislocation. No periprosthetic fracture or loosening seen. The soft tissues are normal. There is mild sclerosis of the right pubic bone likely old injury. Moderate stool is seen in colon. XR/XR hip RT w PEL1V IMPRESSION: Unremarkable chest exam. Total right hip prosthesis in satisfactory alignment. No periprosthetic fractures seen. There is mild sclerosis of the right pubic bone likely old healed fracture. Cannot exclude sclerotic disease. The left hip joint appears unremarkable..
--- NOTE | ~2021-12-07 | XR_ITS ---
EXAMINATION: CHEST AND RIGHT HIP WITH PELVIS. CLINICAL INFORMATION: Fall. COMPARISON: None TECHNIQUE: Chest the one view. AP pelvis and right hip 3 views. FINDINGS: Chest: The lungs are hypoexpanded clear. The heart size and progress clarities normal. No gross bony abnormality seen. AP pelvis: There is a total right hip prosthesis in satisfactory alignment. The left hip joint space is maintained. SI joints are symmetrical. AP and frog-leg views right hip reveals no's hip prosthesis dislocation. No periprosthetic fracture or loosening seen. The soft tissues are normal. There is mild sclerosis of the right pubic bone likely old injury. Moderate stool is seen in colon. XR/XR chest 1V IMPRESSION: Unremarkable chest exam. Total right hip prosthesis in satisfactory alignment. No periprosthetic fractures seen. There is mild sclerosis of the right pubic bone likely old healed fracture. Cannot exclude sclerotic disease. The left hip joint appears unremarkable..
--- NOTE | ~2021-12-07 | CT_ITS ---
EXAMINATION: CT BRAIN AND CT CERVICAL SPINE WITHOUT CONTRAST. CLINICAL INFORMATION: Fall and head injury. COMPARISON: None TECHNIQUE: 5 mm thin axial and reformatted 2 mm thin sagittal and coronal images of brain were obtained without contrast. Subsequently axial 3 mm thin and reformatted 2 mm thin sagittal and coronal images of cervical spine were obtained. DLP 912. This CT examination was performed using dose optimization technique as appropriate, variously including the following: Automated exposure control Adjustment of MA and/or KV according to patient size(this includes techniques or standardized protocols for targeted exams where dose is matched to indication/reason for exam; extremities or head. Use of iterative reconstruction techniques. FINDINGS: Brain: There is no acute intra-axial, extra-axial bleed, masses or midline shift. There is no acute infarction evolution. There is no edema. The us to white matter differentiation is maintained normal. Both lateral ventricles are symmetrical in size and configuration but mildly enlarged. There is periventricular hypodensity in both cerebral hemispheres without mass effect. Bone windows reveal no calvarial abnormality. There is no scalp soft tissue abnormality. Bilateral paranasal sinuses and mastoid air cells are well-aerated. Cervical spine: There is normal cervical lordosis. There is a grade 1 anterolisthesis C3 over C4. Rest the vertebral alignment is normal. There is loss of C3-C4, C4-C5, C5-C6 disc heights. The craniovertebral junction and the C1-C2 alignment is normal. No visible acute fracture or dislocation seen. Bilateral TM joints and the mandible is unremarkable. The prevertebral and paravertebral soft tissues are normal. The lung apices are clear the airways widely patent. CT/CT cervical spine wo IV con IMPRESSION: No acute intracranial process seen. Age-related mild cerebral volume loss with chronic small vessel ischemic changes. No acute fracture, dislocation seen. There is grade 1 anterolisthesis C3 over C4 with degenerative disc changes C3-C4, C4-C5 and C5-C6 disc level.
[2021-12-07 08:44] VITALS: BP 132/82; BP 134/88; PULSE 83; PULSE 88; RESP 16; O2SAT 92; O2SAT 96; BMI 39.6
--- NOTE | 2021-12-07 08:54 | ECG_ITS ---
Test Reason : FALL Blood Pressure : / mmHG Vent. Rate : 074 BPM Atrial Rate : 074 BPM P-R Int : 148 ms QRS Dur : 096 ms QT Int : 540 ms P-R-T Axes : 044 -56 015 degrees QTc Int : 599 ms Normal sinus rhythm Left anterior fascicular block Nonspecific T wave abnormality RSR' or QR pattern in V1 suggests right ventricular conduction delay Abnormal ECG When compared with ECG of 07-OCT-2021 14:46, Nonspecific T wave abnormality has replaced inverted T waves in Anterior leads QT has lengthened Referred By: Nito Solano Electronically Signed By:KATHLEEN VINCENT MD
--- NOTE | 2021-12-07 09:05 | PC.NURSE ---
patient a/ox3 . unable to remember the fall from the night before . myriam . heart rate regular at 82 beats per minute . lungs clear throughout . patient has a hematoma located back lower part of her head . pain level 7 out of 10 . patient right leg rotated inward towards left , hip painful to touch . patient has full use of right leg . positive bowel sounds throughout . IV placed in left AC . labs sent . patient to CT for scan . patient aware of plan of care .
[2021-12-07 09:09] LABS: MANUAL DIFF FLAG NO
[2021-12-07 09:11] LABS: Basophils Absolute Auto 0.1 X10*3/uL (0.0-0.2); Basophils Percent Auto 0.9 % (0-2); Eosinophils Absolute Auto 0.2 X10*3/uL (0.0-0.4); Eosinophils Percent Auto 2.6 % (0-4); Hematocrit 40.9 % (37.0-47.0); Hemoglobin 12.6 g/dl (12.0-16.0); Imm Gran Abs Auto 0.01 X10*3/uL (0.00-0.03); Imm Gran Pct Auto 0.1 % (0.0-0.4); Lymphocytes Absolute Auto 2.1 X10*3/uL (1.2-4.9); Lymphocytes Percent Auto 29.6 % (20-40); Mean Corpuscular HGB Conc 30.8 g/dl (31.0-35.0); Mean Corpuscular Hemoglobin 28.4 pg (27.0-33.0); Mean Corpuscular Volume 92.3 fL (80.0-98.0); Mean Platelet Volume 9.9 fL (9.4-12.3); Monocytes Absolute Auto 0.5 X10*3/uL (0.1-1.2); Monocytes Percent Auto 6.6 % (2-11); Neutrophils Absolute Auto 4.2 x10*3/uL (2.0-8.3); Neutrophils Percent Auto 60.2 % (45-73); Platelet Count 216 X10*3/uL (160-400); Red Blood Count 4.43 X10*6/uL (4.20-5.50)
--- NOTE | 2021-12-07 09:13 | ED_ITS ---
HPI - Fall General Chief Complaint: Fall Stated Complaint: fall Time Seen by Provider: 12/07/21 08:44 Source: patient, EMS and old records reviewed Mode of arrival: EMS Limitations: no limitations History of Present Illness HPI Narrative: A 71-year-old female came in from independent living facility after was found next to the bed on the floor. Patient do not recall how she fell and was found on the floor since 22:00 last night, patient is been complaining of headache, as per staff patient has intermittent episodes of confusion. Patient also complaining of neck pain and right hip pain. Patient declined CP or SOB. Respiratory failure with hypoxia, ETOH abuse, bacteremia, psychotic disorder, metabolic encephalopathy, opiate dependence, PAD, DVT, PE, chronic anemia, on Eliquis. Patient had history of previous similar presentation in the past. Related Data Home Medications Medication Instructions Recorded Confirmed albuterol sulfate 90 mcg/actuation 2 puff inhalation Q4H PRN copd 01/30/21 12/07/21 aerosol inhaler aluminum-mag hydroxide-simethicone 30 ml PO Q4H PRN GERD 01/30/21 12/07/21 200 mg-200 mg-20 mg/5 mL oral susp apixaban 5 mg tablet 5 mg PO BID 01/30/21 12/07/21 buspirone 5 mg tablet 5 mg PO TID 01/30/21 12/07/21 duloxetine 60 mg capsule,delayed 60 mg PO DAILY 01/30/21 12/07/21 release gabapentin 100 mg capsule 100 mg PO TID 01/30/21 12/07/21 levothyroxine 50 mcg tablet 50 mcg PO DAILY@0600 01/30/21 12/07/21 methadone 10 mg tablet 10 mg PO TID chronic pain 01/30/21 12/07/21 tiotropium bromide 2.5 2 puff inhalation DAILY 01/30/21 12/07/21 mcg/actuation mist for inhalation (Spiriva Respimat) gabapentin 400 mg capsule 400 mg PO TID 06/25/21 12/07/21 ondansetron HCl 4 mg tablet 4 mg PO Q8H PRN Nausea And Vomiting 07/23/21 12/07/21 lisinopril 2.5 mg tablet 2.5 mg PO DAILY 10/15/21 12/07/21 tramadol 50 mg tablet 50 mg PO Q8H PRN Pain 10/15/21 12/07/21 acetaminophen 325 mg tablet 650 mg PO Q6H PRN Pain 12/07/21 12/07/21 bisacodyl 10 mg rectal suppository 10 mg DE DAILY PRN Constipation 12/07/21 12/07/21 lidocaine 4 %-menthol 1 % topical 1 patch topical DAILY 12/07/21 12/07/21 patch (AsperFlex Max) magnesium hydroxide 400 mg/5 mL 400 mg PO DAILY PRN Constipation 12/07/21 12/07/21 oral suspension (Milk of Magnesia) naloxone 0.4 mg/mL injection 0.4 mg subcut Q2M PRN Opioid 12/07/21 12/07/21 solution Overdose polyethylene glycol 3350 17 gram 17 g PO DAILY 12/07/21 12/07/21 oral powder packet (Miralax) risperidone 0.25 mg tablet 0.25 mg PO BID 12/07/21 12/07/21 Allergies Allergy/AdvReac Type Severity Reaction Status Date / Time shellfish derived Allergy Unknown Verified 10/15/21 10:58 strawberry Allergy Unknown Verified 10/15/21 10:58 Sulfa (Sulfonamide Allergy Unknown Verified 10/15/21 10:58 Antibiotics) Review of Systems Review of Systems: All other systems are reviewed and are negative Constitutional: Reports as per HPI and Reports no additional constitutional complaints Eyes: Reports as per HPI and Reports no additional eye complaints Reports system reviewed and no additional complaints, except as documented Cardiovascular: Reports as per HPI and Reports no additional cardiovascular complaints Respiratory: Reports as per HPI and Reports no additional respiratory complaints Gastrointestinal: Reports as per HPI and Reports no additional gastrointestinal complaints Genitourinary: Reports no additional female genitourinary complaints Musculoskeletal: Reports no additional musculoskeletal complaints Skin/Breast: Reports system reviewed and no additional complaints, except as docu Psychiatric: Reports no additional psychiatric complaints Endocrine: Reports no additional endocrine complaints Hematologic/Lymphatic: Reports no additional hematologic/lymphatic complaints Allergic/Immunologic: Reports no additional allergic/immunologic complaints Reports system reviewed and no additional complaints, except as documented and Reports Abnormal speech present [facility] Past Medical History Medical History Acute respiratory failure with hypoxia Alcohol abuse, uncomplicated Alcoholism Anemia in other chronic diseases classified elsewhere Bacteremia Brief psychotic disorder Cellulitis of unspecified part of limb COVID-19 Dilated cbd, acquired Falls Localized edema Metabolic encephalopathy Non-pressure chronic ulcer of right calf with unspecified severity Opiate dependence Opioid dependence, in remission Other abnormalities of gait and mobility Other chronic pain Personal history of other venous thrombosis and embolism Pulmonary embolus Unsteadiness on feet Social History Social History Household Members: Other Household Members Other:: SNF Housing: Alf Do you presently have visiting nurse or other home services: No Unable to assess alcohol history related to: Unable to respond and Unknown Alcohol intake: former Patient Tobacco Use Status: Never used Tobacco Tobacco use type: Cigarette Advance Directives: Yes Advance Directives on File: Yes Advance Directives Date on File: 03/14/21 service: No Current occupational status: retired Physical Exam Vital Signs: Vital Signs: Last Vital Signs Temp 97.7 F 12/07/21 14:17 Pulse 77 12/07/21 14:17 Resp 14 12/07/21 14:17 BP 182/118 H 12/07/21 14:17 Pulse Ox 92 12/07/21 14:17 O2 Del Method 12/07/21 14:17 BMI result Body Mass Index 39.6 Vital signs have been reviewed as appeared to be correct. Blood pressure normal. Heart rate normal. Respiration rate normal. Temperature normal. Oxygen saturation normal. Appearance: Alert. Oriented X3. No acute distress. Head: Normal external exam. Normocephalic. Atraumatic. No Lombardi signs noted. No raccoon eyes noted Eyes: PERRLA. EOMI. Conjunctiva and sclera normal. Eyelids normal. ENT: TM's Normal. Pharynx normal. Uvula midline. Moist mucous membranes. No trismus noted. No drooling noted. No muffled voice noted. Neck: Normal inspection. Neck supple. FROM. No adenopathy. Thyroid Normal. No meningeal signs. No neck mass noted. CVS: Normal heart rate and rhythm. Heart sound normal. No murmurs noted. Pulses normal throughout. Respiratory: No respiratory distress. Painless inspiration. Breath sounds normal. No wheezes/rales/rhonchi noted. Chest nontender. No accessory muscle usage noted or decreased air movement noted. Abdomen: Soft and nontender. Bowel sounds normal in all 4 quadrants. No distention noted. No organomegaly noted. No visible injury noted. Back: No CVA tenderness. Full range of motion noted. Skin: Skin warm and dry. Normal skin color. Normal skin turgor. No rashes /lesions/lacerations noted. Extremities: Right hip tenderness, no step-off, no deformity. Neuro: Oriented X 3. Cranial nerve exam: II-XII are grossly intact No motor deficit. No sensory deficit. Reflexes normal. Course Course Course Narrative: 71-year-old female who came in for evaluation after fall patient normally lives in independent living facility, reviewing patient's record noted to have frequent falling and patient has been deteriorating and deconditioning. 1. UTI will treat with Macrobid b.i.d. 2. Frequent falls patient agreed to be evaluated for rehab placement will obtain PT. 3. COVID-19 positive 4. Start physician observation status. Reevaluation(s) Reevaluation #1: Physician observation started at 12:45 . Patient placed in physician observation because the patient needed more time for medication to work and to see PT/case management for evaluation and the need for placement patient's vital sign were stable, patient is alert and oriented , neuro exam unchanged, unremarkable rest of physical exam. Time: 12:45 Reevaluation #2: Patient has been evaluated by director of social services, patient can go back to [facility] where she has enough staff to help her, will arrange for transportation to go back. MDM - Fall Medical Records Attestation: I reviewed the patient's medical records. Lab Data Attestation: I reviewed the patient's lab results. Result diagrams: 12/07/21 09:03 12/07/21 09:03 Labs: Lab Results 12/07/21 12/07/21 12/07/21 Range/Units 09:03 09:03 09:03 WBC 7.0 (4.8-10.8) X10*3/uL RBC 4.43 (4.20-5.50) X10*6/uL Hgb 12.6 (12.0-16.0) g/dl Hct 40.9 (37.0-47.0) % MCV 92.3 (80.0-98.0) fL MCH 28.4 (27.0-33.0) pg MCHC 30.8 L (31.0-35.0) g/dl RDW 15.0 (11.0-16.0) % Plt Count 216 (160-400) X10*3/uL MPV 9.9 (9.4-12.3) fL Immature Gran % (Auto) 0.1 (0.0-0.4) % Neut % (Auto) 60.2 (45-73) % Lymph % (Auto) 29.6 (20-40) % Luce % (Auto) 6.6 (2-11) % Eos % (Auto) 2.6 (0-4) % Baso % (Auto) 0.9 (0-2) % Lymph # (Auto) 2.1 (1.2-4.9) X10*3/uL Luce # (Auto) 0.5 (0.1-1.2) X10*3/uL Eos # (Auto) 0.2 (0.0-0.4) X10*3/uL Baso # (Auto) 0.1 (0.0-0.2) X10*3/uL Abs Immat Gran (auto) 0.01 (0.00-0.03) X10*3/uL Absolute Neuts (auto) 4.2 (2.0-8.3) x10*3/uL Absolute Nucleated RBC 0.000 (0.0-0.012) X10*3/uL Nucleated RBC % (auto) 0.0 (0.0-0.2) /100WBC Sodium 145 (135-145) mmol/L Potassium 3.8 (3.3-5.1) mmol/L Chloride 100 (96-108) mmol/L Carbon Dioxide 34 H (22-29) mmol/L Anion Gap 15 (12-20) BUN 16 (9-16) mg/dL Creatinine 0.64 (0.5-1.4) mg/dL Estim Creat Clear Calc 114.2 Estimated GFR > 60 Random Glucose 96 (60-115) mg/dL Calcium 8.9 (8.4-10.2) mg/dL Total Bilirubin 0.6 (0.0-1.0) mg/dL Direct Bilirubin 0.2 (0.0-0.5) mg/dL AST 26 D (5-31) U/L ALT 15 (0-31) U/L Alkaline Phosphatase 133 H (39-117) U/L Total Creatine Kinase 450 H D (26-140) U/L Troponin I High Sens 11.3 (<3.5-17.0) ng/L B-Natriuretic Peptide 45 (<100) pg/mL Total Protein 5.9 L D (6.5-8.0) g/dL Albumin 3.3 L D (3.5-5.0) g/dL Lipase < 4 L (8-78) U/L Urine Color Urine Appearance Urine pH (5.0-9.0) Ur Specific [place] (1.005-1.025) Urine Protein (Neg-Trace) mg/dL Urine Glucose (UA) (Negative) mg/dL Urine Ketones (Negative) mg/dL Urine Blood (Negative) Urine Nitrite (Negative) Ur Leukocyte Esterase (Negative) Urine RBC (0-2) /HPF Urine WBC (0-5) /HPF Ur Squamous Epith Cells (0-2) /HPF Calcium Oxalate Crystal Urine Bacteria (None Seen) Hyaline Casts (0-2) /LPF COVID-19 (SILVIA) (Negative) COVID-19 Clin Com 12/07/21 12/07/21 Range/Units 09:03 11:40 WBC (4.8-10.8) X10*3/uL RBC (4.20-5.50) X10*6/uL Hgb (12.0-16.0) g/dl Hct (37.0-47.0) % MCV (80.0-98.0) fL MCH (27.0-33.0) pg MCHC (31.0-35.0) g/dl RDW (11.0-16.0) % Plt Count (160-400) X10*3/uL MPV (9.4-12.3) fL Immature Gran % (Auto) (0.0-0.4) % Neut % (Auto) (45-73) % Lymph % (Auto) (20-40) % Luce % (Auto) (2-11) % Eos % (Auto) (0-4) % Baso % (Auto) (0-2) % Lymph # (Auto) (1.2-4.9) X10*3/uL Luce # (Auto) (0.1-1.2) X10*3/uL Eos # (Auto) (0.0-0.4) X10*3/uL Baso # (Auto) (0.0-0.2) X10*3/uL Abs Immat Gran (auto) (0.00-0.03) X10*3/uL Absolute Neuts (auto) (2.0-8.3) x10*3/uL Absolute Nucleated RBC (0.0-0.012) X10*3/uL Nucleated RBC % (auto) (0.0-0.2) /100WBC Sodium (135-145) mmol/L Potassium (3.3-5.1) mmol/L Chloride (96-108) mmol/L Carbon Dioxide (22-29) mmol/L Anion Gap (12-20) BUN (9-16) mg/dL Creatinine (0.5-1.4) mg/dL Estim Creat Clear Calc Estimated GFR Random Glucose (60-115) mg/dL Calcium (8.4-10.2) mg/dL Total Bilirubin (0.0-1.0) mg/dL Direct Bilirubin (0.0-0.5) mg/dL AST (5-31) U/L ALT (0-31) U/L Alkaline Phosphatase (39-117) U/L Total Creatine Kinase (26-140) U/L Troponin I High Sens (<3.5-17.0) ng/L B-Natriuretic Peptide (<100) pg/mL Total Protein (6.5-8.0) g/dL Albumin (3.5-5.0) g/dL Lipase (8-78) U/L Urine Color Dark Yellow Urine Appearance Cloudy Urine pH 6.0 (5.0-9.0) Ur Specific [place] 1.020 (1.005-1.025) Urine Protein 100 (2+) H (Neg-Trace) mg/dL Urine Glucose (UA) Negative (Negative) mg/dL Urine Ketones Trace (Negative) mg/dL Urine Blood Large (3+) H (Negative) Urine Nitrite Positive H (Negative) Ur Leukocyte Esterase Small (1+) H (Negative) Urine RBC >20 H (0-2) /HPF Urine WBC 0-5 (0-5) /HPF Ur Squamous Epith Cells 3-5 (0-2) /HPF Calcium Oxalate Crystal Present Urine Bacteria 4+ (None Seen) Hyaline Casts 0-2 (0-2) /LPF COVID-19 (SILVIA) Positive A (Negative) COVID-19 Clin Com See Note Imaging Data Head and cervical spine CT: Attestation: I personally reviewed and interpreted this imaging study as follows: Radiologist's impression: No acute intracranial process seen. ?Age-related mild cerebral volume loss with chronic small vessel ischemic changes. ?No acute fracture, dislocation seen. There is grade 1 anterolisthesis C3 over C4 with degenerative disc changes C3-C4, C4-C5 and C5-C6 disc leve Chest x-ray: Attestation: I personally reviewed and interpreted this imaging study as follows: Radiologist's impression: Unremarkable chest exam. Right hip x-ray: Attestation: I personally reviewed and interpreted this imaging study as follows: Radiologist's impression: Total right hip prosthesis in satisfactory alignment. No periprosthetic fractures seen. There is mild sclerosis of the right pubic bone likely old healed fracture. Cannot exclude sclerotic disease. The left hip joint appears unremarkable..? ECG Data Attestation: I personally reviewed and interpreted this ECG as follows: Interpretation: Normal sinus rhythm at 74 beats per minute, normal intervals, nonspecific ST-T changes, no change from old EKG. Discharge Plan Discharge Clinical Impression: Acute UTI, Contusion of right hip, COVID-19 virus infection Patient Disposition: Xfer [facility] Instructions: Contusion in Adults (ED) Prescriptions: No Action ondansetron HCl 4 mg Tablet 4 mg PO Q8H PRN (Reason: Nausea And Vomiting) buspirone 5 mg Tablet 5 mg PO TID methadone 10 mg Tablet 10 mg PO TID levothyroxine 50 mcg Tablet 50 mcg PO DAILY@0600 gabapentin 100 mg Capsule 100 mg PO TID Rx Instructions: take with gabapentin 400 mg alum-mag hydroxide-simeth 200-200-20 mg/5 mL Suspension 30 ml PO Q4H PRN (Reason: GERD) albuterol sulfate 90 mcg/actuation Hfa Aerosol Inhaler 2 puff INHALATION Q4H PRN (Reason: copd) duloxetine 60 mg Capsule,Delayed Release(Dr/Ec) 60 mg PO DAILY Spiriva Respimat 2.5 mcg/actuation Mist 2 puff INHALATION DAILY apixaban 5 mg Tablet 5 mg PO BID acetaminophen 325 mg Tablet 650 mg PO Q6H PRN (Reason: Pain) polyethylene glycol 3350 [Miralax] 17 gram Powder In Packet 17 g PO DAILY naloxone 0.4 mg/mL Solution 0.4 mg SUBCUT Q2M PRN (Reason: Opioid Overdose) Rx Instructions: NTExceed 10 mg total dose/episode risperidone 0.25 mg Tablet 0.25 mg PO BID magnesium hydroxide [Milk of Magnesia] 400 mg/5 mL Suspension 400 mg PO DAILY PRN (Reason: Constipation) bisacodyl 10 mg Suppository 10 mg DE DAILY PRN (Reason: Constipation) lidocaine-menthol [AsperFlex Max] 4-1 % Adhesive Patch,Medicated 1 patch TOPICAL DAILY Rx Instructions: administer for up to 12 hours lisinopril 2.5 mg tablet 2.5 mg PO DAILY tramadol 50 mg tablet 50 mg PO Q8H PRN (Reason: Pain) gabapentin 400 mg capsule 400 mg PO TID Referrals: [facility], [facility] [Outside]
[2021-12-07 09:20] LABS: COVID-19 Test Positive (Negative)
[2021-12-07 09:29] VITALS: BP 134/88; PULSE 78; RESP 16; TEMP 36.7; O2SAT 94
[2021-12-07] MEDS: 0.9 % Sodium Chloride 1,000 ML 999 ML IV (09:29)
[2021-12-07 09:34] LABS: Alanine Aminotransferase 15 U/L (0-31); Albumin Level 3.3 g/dL (3.5-5.0); Alkaline Phosphatase 133 U/L (39-117); Anion Gap 15 (12-20); Aspartate Amino Transferase 26 U/L (5-31); Bilirubin Direct 0.2 mg/dL (0.0-0.5); Bilirubin Total 0.6 mg/dL (0.0-1.0); Blood Urea Nitrogen 16 mg/dL (9-16); Calcium 8.9 mg/dL (8.4-10.2); Carbon Dioxide 34 mmol/L (22-29); Chloride 100 mmol/L (96-108); Creatinine Clr Calc Pharmacy 114.2; Estimated Glomerular Filt Rate > 60; Glucose Random 96 mg/dL (60-115); Potassium 3.8 mmol/L (3.3-5.1); Sodium 145 mmol/L (135-145); Total Protein 5.9 g/dL (6.5-8.0)
[2021-12-07 09:37] LABS: B Type Natriuretic Peptide 45 pg/mL (<100); Troponin-I High Sensitivity 11.3 ng/L (<3.5-17.0)
[2021-12-07] MEDS: oxyCODONE HCl Immed Release 5 MG TABLET PO (09:44)
[2021-12-07 09:57] LABS: Lipase < 4 U/L (8-78)
[2021-12-07 10:00] VITALS: BP 163/94; PULSE 72; RESP 13; TEMP 36.5; O2SAT 94
[2021-12-07 11:46] LABS: Appearance Urine Cloudy; Color Urine Dark Yellow; Glucose Urine UA Negative (Negative); Leukocyte Esterase Urine Small (1+) (Negative); Nitrite Urine Positive (Negative); UMIC TRIGGER UACC YES; Urine Blood Large (3+) (Negative); Urine Ketones Trace mg/dL (Negative); Urine Protein 100 (2+) mg/dL (Neg-Trace)
[2021-12-07 12:02] LABS: Bacteria Urine 4+ (None Seen); Calcium Oxalate Crystals Urine Present; Hyaline Casts Urine 0-2 /LPF (0-2); RBC Urine >20 /HPF (0-2); UACC Culture Trigger YES; WBC Urine 0-5 /HPF (0-5)
--- NOTE | 2021-12-07 12:33 | PHA.MEDREC ---
Pharmacy Consult ? Medication Reconciliation Pharmacy has completed the medication reconciliation. Utilized list from SNF to confirm meds.
[2021-12-07] MEDS: Nitrofurantoin Monohyd/M-Cryst 100 MG CAPSULE PO ×2 (13:40→21:45)
[2021-12-07 14:17] VITALS: BP 182/118; PULSE 77; RESP 14; TEMP 36.5; O2SAT 92
--- NOTE | 2021-12-07 15:47 | MHC.CM.ED ---
Received case management consult from Dr Solano. Patient came to the ER due to a fall. 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. Patient found to be positive for Covid. Patient will return to [place] via [place] [facility] at 6pm. Continue to monitor for d/c needs.
--- NOTE | 2021-12-07 16:57 | PC.NURSE ---
patient was able to walk with assistance of staff in room . patient aware of plan of care to discharge back to facility .
--- NOTE | 2021-12-07 19:29 | PC.NURSE ---
[facility] called at 1930 to get an ETA on a on an ems booked for 1800. Dispatch stated it will be about another hour RN aware.
--- NOTE | 2021-12-07 20:52 | PC.NURSE ---
Marcia called at 2020 for an update on transfer,They stated it would be another two hours.Rn and Aircraft Time Clerk aware.
[2021-12-07 21:43] VITALS: BP 156/109; PULSE 98; RESP 16; O2SAT 93
== END 2021-12-07 21:57 | disposition skilled nursing facility (03) ==
PROVIDERS: Emergency Provider Emergency Medicine; PCP Internal Medicine
DX: U07.1 COVID-19 (principal); N39.0 Urinary tract infection, site not specified; S70.01XA Contusion of right hip, initial encounter; W19.XXXA Unspecified fall, initial encounter; M54.2 Cervicalgia; R26.81 Unsteadiness on feet; R53.81 Other malaise; F10.21 Alcohol dependence, in remission; F11.20 Opioid dependence, uncomplicated; R29.6 Repeated falls; Z91.81 History of falling; Z86.711 Personal history of pulmonary embolism; Z86.718 Personal history of other venous thrombosis and embolism; Z79.01 Long term (current) use of anticoagulants; Z79.899 Other long term (current) drug therapy; Y93.89 Activity, other specified; Y92.092 Bedroom in other non-institutional residence as the place of occurrence of the external cause; Y99.9 Unspecified external cause status
CPT/HCPCS: 70450; 71045; 72125; 73502; 80048; 80076; 81001; 82550; 83690; 83880; 84484; 85025; 87086; 87635; 93005; 96360; 97162; 99285

== ENCOUNTER 2022-03-17 09:45 | Outpatient (REF) | payer MEDICARE, MEDICAID, SELFPAY ==
--- NOTE | ~2022-03-17 | US_ITS ---
EXAMINATION: NONINVASIVE ASSESSMENT OF THE ARTERIES OF BOTH LOWER EXTREMITIES WITH PVR EXAM AND BILATERAL LOWER EXTREMITY DUPLEX Zuleima Koo MD CLINICAL INFORMATION: Peripheral vascular disease TECHNIQUE: Ankle pulse volume recordings, ankle pressure measurements and ankle brachial indices were obtained of the lower extremity arterial system bilaterally in addition to duplex Doppler techniques with wave form analysis and measurement of velocities in the common femoral, profunda femoral, superficial femoral, popliteal and tibial arteries. The study was performed only at rest. COMPARISON: Noninvasive arterial evaluation on 09/26/2021 FINDINGS: a) AT REST: RIGHT LE. The right ankle-brachial index is: 0.91 * >0.97-1.25 = normal - no significant arterial disease * 0.75-0.96 = mild peripheral arterial disease * 0.5-0.74 = moderate peripheral arterial disease * <0.50 = severe peripheral arterial disease 2. Right ankle pressure: normal. 3. Right ankle PVR waveform: Abnormal 4. Right direct duplex Doppler findings: Common femoral artery: 22 cm/s, Multiphasic Profunda femoris artery: 102 cm/s, Multiphasic Superficial femoral artery (proximal): Occluded Superficial femoral artery (mid): Occluded Superficial femoral artery (distal): 11 cm/s, Multiphasic Proximal Popliteal artery: 13 cm/s, Multiphasic Mid posterior tibial artery: 16 cm/s, Multiphasic Multiple thigh collaterals. LEFT LE. The left ankle-brachial index is: 1.28 * >0.97-1.25 = normal - no significant arterial disease * 0.75-0.96 = mild peripheral arterial disease * 0.5-0.74 = moderate peripheral arterial disease * <0.50 = severe peripheral arterial disease 2. Left ankle pressure: normal. 3. Left ankle PVR waveform: normal. 4. Left direct duplex Doppler findings: Common femoral artery: 64 cm/s, Multiphasic Profunda femoris artery: 48 cm/s, Multiphasic Superficial femoral artery (proximal): 70 cm/s, Multiphasic Superficial femoral artery (mid): 75 cm/s, Multiphasic Superficial femoral artery (distal): 52 cm/s, Multiphasic Proximal Popliteal artery: 42 cm/s, Multiphasic Mid posterior tibial artery: 28 cm/s, Multiphasic US/US arterial duplex LE BI IMPRESSION: Diffuse atherosclerotic calcification bilaterally. RIGHT LEG: Occlusion of the right proximal and mid SFA with reconstitution distally via thigh collaterals, unchanged. LEFT LEG: No hemodynamically significant stenoses in the left lower extremity.
== END 2022-03-17 09:46 | disposition home or self-care (01) ==
LOC: HO.US 09:45
PROVIDERS: PCP Family Medicine; Visit Provider Surgery Vascular Surgery
DX: I70.213 Atherosclerosis of native arteries of extremities with intermittent claudication, bilateral legs (principal)
CPT/HCPCS: 93923; 93925

== ENCOUNTER 2022-03-26 07:23 | Emergency (ER) | payer MEDICARE, MEDICAID, SELFPAY ==
--- NOTE | ~2022-03-26 | CT_ITS ---
Indication: Pain after fall EXAMINATION: CT of the brain and CT cervical spine. This CT examination was performed using dose optimization techniques as appropriate, variously including the following: *Automated exposure control *Adjustment of mA and/or kV according to patient size (this includes techniques or standardized protocols for targeted exams where dose is matched to indication/reason for exam; i.e. extremities or head) *Use of iterative reconstruction technique. Radiation dose 254 and 634. Comparison previous dated 12/07/2021. CT brain; There is no midline shift. There is no mass effect. There is no hemorrhage. The basal cisterns appear patent. The posterior fossa is grossly within normal limits. No extra-axial collection. There is atrophy and white matter ischemic change. Review of the bone windows does not demonstrate evidence for fracture. Cervical spine; Grade 1 anterolisthesis of C3 on C4. Similar to previous. No acute fracture or dislocation is seen. CT/CT head/brain wo IV con IMPRESSION: Negative acute noncontrast CT of the brain. White matter ischemic changes are noted and atrophy. No acute fracture or dislocation of the cervical spine.
--- NOTE | ~2022-03-26 | CT_ITS ---
EXAMINATION: CT THORACIC SPINE WITHOUT CONTRAST CLINICAL INFORMATION: Thoracic spine tenderness to palpation. COMPARISON: CT chest 12/05/2021. TECHNIQUE: Sr. Logistics Analyst images were obtained. CT imaging of the thoracic spine was performed without contrast. Data was reformatted into multiplanar images at the acquisition workstation. This CT examination was performed using dose optimization techniques as appropriate, including one or more of the following: Automated exposure control, iterative reconstruction, and adjustment of technique factors (mA and/or kVp) according to patient size (this includes techniques or standardized protocols for targeted exams where dose is matched to indication/reason for exam). Fleischner Society criteria for the followup of incidental pulmonary nodules was implemented if appropriate. DLP: 1146 mGy-cm. FINDINGS: There are chronic compression deformities involving the T10, T11, and T12 vertebral bodies resulting in focal accentuation of the thoracic kyphosis within the lower thoracic region. These findings have remained stable when compared to most recent prior CT scan of the chest from 07/23/2021. No clear evidence of acute fracture. Canal patency is suboptimally assessed on this examination due to inherent limitations of CT without intrathecal contrast contrast. Grossly no evidence of canal compromise. No substantial neuroforaminal encroachment. Of note there are multiple old healed rib fractures on the left side. No evidence of acute rib fracture. Limited visualization of intrathoracic anatomy reveals bibasilar subsegmental atelectasis. No overt consolidative disease or effusion. No paraspinal soft tissue mass or collection. CT/CT thoracic spine wo IV con IMPRESSION: There are chronic compression deformities involving the T10, T11, and T12 vertebral bodies resulting in focal accentuation of the thoracic kyphosis within the lower thoracic region. These findings have remained stable when compared to most recent prior CT scan of the chest from 12/05/2021. No clear evidence of acute fracture. Canal patency is suboptimally assessed on this examination due to inherent limitations of CT without intrathecal contrast. No substantial neuroforaminal encroachment.
--- NOTE | ~2022-03-26 | CT_ITS ---
Indication: Pain after fall EXAMINATION: CT of the brain and CT cervical spine. This CT examination was performed using dose optimization techniques as appropriate, variously including the following: *Automated exposure control *Adjustment of mA and/or kV according to patient size (this includes techniques or standardized protocols for targeted exams where dose is matched to indication/reason for exam; i.e. extremities or head) *Use of iterative reconstruction technique. Radiation dose 254 and 634. Comparison previous dated 12/07/2021. CT brain; There is no midline shift. There is no mass effect. There is no hemorrhage. The basal cisterns appear patent. The posterior fossa is grossly within normal limits. No extra-axial collection. There is atrophy and white matter ischemic change. Review of the bone windows does not demonstrate evidence for fracture. Cervical spine; Grade 1 anterolisthesis of C3 on C4. Similar to previous. No acute fracture or dislocation is seen. CT/CT cervical spine wo IV con IMPRESSION: Negative acute noncontrast CT of the brain. White matter ischemic changes are noted and atrophy. No acute fracture or dislocation of the cervical spine.
[2022-03-26 07:28] VITALS: BP 152/101; PULSE 70; O2SAT 94
[2022-03-26 07:30] VITALS: BP 140/91; PULSE 72; RESP 19; TEMP 36.6; O2SAT 94; BMI 16.2
--- NOTE | 2022-03-26 07:33 | ECG_ITS ---
Test Reason : FALL Blood Pressure : / mmHG Vent. Rate : 068 BPM Atrial Rate : 068 BPM P-R Int : 148 ms QRS Dur : 088 ms QT Int : 392 ms P-R-T Axes : 028 -37 -07 degrees QTc Int : 416 ms Normal sinus rhythm Left axis deviation Nonspecific T wave abnormality Abnormal ECG When compared with ECG of 07-DEC-2021 09:35, QT has shortened Referred By: Beth Ellis Electronically Signed By:Thang Mckeon
--- NOTE | 2022-03-26 07:33 | ED.FALL ---
HPI - Fall General Chief Complaint: Fall Stated Complaint: Fall out of bed, Loss of consciousness per EMS Time Seen by Provider: 03/26/22 07:26 Source: patient Mode of arrival: EMS History of Present Illness HPI Narrative: 71-year-old female who has suffered a fall out of bed on blood thinners and does not recall the events surrounding that fall and was down for an unknown amount of time. At this time she is complaining of some neck and upper back pain but otherwise denies any other discomfort. Related Data Home Medications Medication Instructions Recorded Confirmed albuterol sulfate 90 mcg/actuation 2 puff inhalation Q4H PRN copd 01/30/21 12/07/21 aerosol inhaler aluminum-mag hydroxide-simethicone 30 ml PO Q4H PRN GERD 01/30/21 12/07/21 200 mg-200 mg-20 mg/5 mL oral susp apixaban 5 mg tablet 5 mg PO BID 01/30/21 12/07/21 buspirone 5 mg tablet 5 mg PO TID 01/30/21 12/07/21 duloxetine 60 mg capsule,delayed 60 mg PO DAILY 01/30/21 12/07/21 release gabapentin 100 mg capsule 100 mg PO TID 01/30/21 12/07/21 levothyroxine 50 mcg tablet 50 mcg PO DAILY@0600 01/30/21 12/07/21 methadone 10 mg tablet 10 mg PO TID chronic pain 01/30/21 12/07/21 tiotropium bromide 2.5 2 puff inhalation DAILY 01/30/21 12/07/21 mcg/actuation mist for inhalation (Spiriva Respimat) gabapentin 400 mg capsule 400 mg PO TID 06/25/21 12/07/21 ondansetron HCl 4 mg tablet 4 mg PO Q8H PRN Nausea And Vomiting 07/23/21 12/07/21 lisinopril 2.5 mg tablet 2.5 mg PO DAILY 10/15/21 12/07/21 tramadol 50 mg tablet 50 mg PO Q8H PRN Pain 10/15/21 12/07/21 acetaminophen 325 mg tablet 650 mg PO Q6H PRN Pain 12/07/21 12/07/21 bisacodyl 10 mg rectal suppository 10 mg KS DAILY PRN Constipation 12/07/21 12/07/21 lidocaine 4 %-menthol 1 % topical 1 patch topical DAILY 12/07/21 12/07/21 patch (AsperFlex Max) magnesium hydroxide 400 mg/5 mL 400 mg PO DAILY PRN Constipation 12/07/21 12/07/21 oral suspension (Milk of Magnesia) naloxone 0.4 mg/mL injection 0.4 mg subcut Q2M PRN Opioid 12/07/21 12/07/21 solution Overdose polyethylene glycol 3350 17 gram 17 g PO DAILY 12/07/21 12/07/21 oral powder packet (Miralax) risperidone 0.25 mg tablet 0.25 mg PO BID 12/07/21 12/07/21 Previous Rx's Medication Instructions Recorded nitrofurantoin 100 mg PO BID 7 days #14 caps 12/07/21 monohydrate/macrocrystals 100 mg capsule (Macrobid) Allergies Allergy/AdvReac Type Severity Reaction Status Date / Time shellfish derived Allergy Unknown Verified 10/15/21 10:58 strawberry Allergy Unknown Verified 10/15/21 10:58 Sulfa (Sulfonamide Allergy Unknown Verified 10/15/21 10:58 Antibiotics) Review of Systems Review of Systems: Pertinent positives and negatives as stated in HPI [facility] Past Medical History Source: nursing notes reviewed Medical History Acute respiratory failure with hypoxia Alcohol abuse, uncomplicated Alcoholism Anemia in other chronic diseases classified elsewhere Bacteremia Brief psychotic disorder Cellulitis of unspecified part of limb COVID-19 Dilated cbd, acquired Falls Localized edema Metabolic encephalopathy Non-pressure chronic ulcer of right calf with unspecified severity Opiate dependence Opioid dependence, in remission Other abnormalities of gait and mobility Other chronic pain Personal history of other venous thrombosis and embolism Pulmonary embolus Unsteadiness on feet Social History Social History Household Members: Other Household Members Other:: SNF Housing: Custodial Do you presently have visiting nurse or other home services: No Unable to assess alcohol history related to: Unable to respond and Unknown Alcohol intake: former Patient Tobacco Use Status: Never used Tobacco Tobacco use type: Cigarette Advance Directives: Yes Advance Directives on File: Yes Advance Directives Date on File: 03/14/21 service: No Current occupational status: retired Physical Exam Vital Signs: Vital Signs: Last Vital Signs Temp 98 F 03/26/22 07:30 Pulse 72 03/26/22 07:30 Resp 19 03/26/22 07:30 BP 140/91 H 03/26/22 07:30 Pulse Ox 94 03/26/22 07:30 O2 Del Method 03/26/22 07:30 BMI result Body Mass Index 16.2 VITAL SIGNS: Reviewed. GENERAL: Chronically ill, cachectic, in no acute distress. HEAD: Normocephalic/apparent contusions to the forehead area along the hairline without laceration EYES: PERRLA, EOMI EARS: Ext canals without abnormality OROPHARYNX: no oral lesions noted, posterior pharynx clear and non-erythematous without noted tonsillar enlargement/erythema/exudates NECK: C-collar in place, no adenopathy, midline cervical spine tenderness as well as caudally into T-spine LUNGS: Normal breath sounds. No adventitious sounds or accessory muscle use; CHEST WALL: No chest wall tenderness on palpation, no deformity/crepitus and no ecchymosis CARDIOVASCULAR: Regular rate and rhythm without noted murmurs, no JVD or lower extremity edema. ABDOMEN: Soft, non-tender, non-distended with bowel sounds. PELVIS: Stable, nontender, patient demonstrates leg lift/symmetrical bilateral MUSCULOSKELETAL: No tenderness, deformities, or effusions noted on gross inspection. EXTREMITIES: No cyanosis, clubbing or edema; full range of motion at bilateral shoulder/elbow/wrist/hip/knee/ankle without deformities noted, small abrasion on right knee. SKIN: Inspection of the skin reveals no rashes, small abrasion right knee NEUROLOGIC: Alert and oriented x 3. Strength and sensation to light touch were grossly intact x 4. Medical Decision Making Medical Decision Making [facility] Narrative: This is a frail looking 71-year-old female who presents with a known events surrounding a fall from bed, no obvious extremity fractures or pelvis concerns at this time I suspect that the cervical spine may have a fracture but will proceed with imaging. Labs/CT scans/EKG I reviewed all investigations and my interpretation is that patient had a fall out of bed without head/neck/acute spinal injury, no evidence of infection or anemia and she is otherwise discharged home in stable condition after receiving Tylenol and a lidocaine patch. Differential Diagnosis Differential Diagnoses: The differential diagnosis associated with the presentation includes Please see discussion above Lab Data [facility] Lab Attestation statement: I reviewed the patient's lab results. Please see discussion above 03/26/22 08:22 03/26/22 08:22 Labs: Lab Results 03/26/22 03/26/22 Range/Units 08:22 08:22 WBC 6.0 (4.8-10.8) X10*3/uL RBC 3.97 L (4.20-5.50) X10*6/uL Hgb 12.0 (12.0-16.0) g/dl Hct 37.4 (37.0-47.0) % MCV 94.2 (80.0-98.0) fL MCH 30.2 (27.0-33.0) pg MCHC 32.1 (31.0-35.0) g/dl RDW 14.4 (11.0-16.0) % Plt Count 193 (160-400) X10*3/uL MPV 9.9 (9.4-12.3) fL Immature Gran % (Auto) 0.2 (0.0-0.4) % Neut % (Auto) 54.2 (45-73) % Lymph % (Auto) 33.4 (20-40) % Traverse % (Auto) 8.4 (2-11) % Eos % (Auto) 3.0 (0-4) % Baso % (Auto) 0.8 (0-2) % Lymph # (Auto) 2.0 (1.2-4.9) X10*3/uL Traverse # (Auto) 0.5 (0.1-1.2) X10*3/uL Eos # (Auto) 0.2 (0.0-0.4) X10*3/uL Baso # (Auto) 0.1 (0.0-0.2) X10*3/uL Abs Immat Gran (auto) 0.01 (0.00-0.03) X10*3/uL Absolute Neuts (auto) 3.2 (2.0-8.3) x10*3/uL Absolute Nucleated RBC 0.000 (0.0-0.012) X10*3/uL Nucleated RBC % (auto) 0.0 (0.0-0.2) /100WBC Sodium 144 (135-145) mmol/L Potassium 4.2 (3.3-5.1) mmol/L Chloride 105 (96-108) mmol/L Carbon Dioxide 29 (22-29) mmol/L Anion Gap 14 (12-20) BUN 13 (9-16) mg/dL Creatinine 0.67 (0.5-1.4) mg/dL Estim Creat Clear Calc 61.6 Estimated GFR > 60 Random Glucose 69 (60-115) mg/dL Calcium 8.2 L D (8.4-10.2) mg/dL Total Bilirubin 0.4 (0.0-1.0) mg/dL AST 21 (5-31) U/L ALT 16 (0-31) U/L Alkaline Phosphatase 101 (39-117) U/L Total Creatine Kinase 66 (26-140) U/L Total Protein 5.0 L (6.5-8.0) g/dL Albumin 2.6 L (3.5-5.0) g/dL Independent Interpretation I performed an independent interpretation of an: EKG Interpretation: Normal sinus rhythm, HR-68, no STEMI, KS/QRS/QTC are within normal limits. Radiology Impression Radiologist Impression: My interpretation is in agreement with radiology's interpretation of the imaging studies. External Record Review External record reviewed: Outpatient record and Prior outpatient labs Discharge Plan Discharge Clinical Impression: Fall, Contusion of scalp Patient Disposition: er [facility] Instructions: Fall Prevention for Older Adults (ED), Scalp Contusion in Adults (ED) Additional Instructions: 1. Resume all home medications as prescribed. 2. Recommend [id number] Tylenol and lidocaine patch as needed for pain from the fall. 3. Follow-up with the primary care provider in the next 1-2 days for re-evaluation. Return to the ER for any worsening or additional symptoms. Prescriptions: No Action ondansetron HCl 4 mg Tablet 4 mg PO Q8H PRN (Reason: Nausea And Vomiting) buspirone 5 mg Tablet 5 mg PO TID methadone 10 mg Tablet 10 mg PO TID levothyroxine 50 mcg Tablet 50 mcg PO DAILY@0600 gabapentin 100 mg Capsule 100 mg PO TID Rx Instructions: take with gabapentin 400 mg alum-mag hydroxide-simeth 200-200-20 mg/5 mL Suspension 30 ml PO Q4H PRN (Reason: GERD) albuterol sulfate 90 mcg/actuation Hfa Aerosol Inhaler 2 puff INHALATION Q4H PRN (Reason: copd) duloxetine 60 mg Capsule,Delayed Release(Dr/Ec) 60 mg PO DAILY Spiriva Respimat 2.5 mcg/actuation Mist 2 puff INHALATION DAILY apixaban 5 mg Tablet 5 mg PO BID acetaminophen 325 mg Tablet 650 mg PO Q6H PRN (Reason: Pain) polyethylene glycol 3350 [Miralax] 17 gram Powder In Packet 17 g PO DAILY naloxone 0.4 mg/mL Solution 0.4 mg SUBCUT Q2M PRN (Reason: Opioid Overdose) Rx Instructions: NTExceed 10 mg total dose/episode risperidone 0.25 mg Tablet 0.25 mg PO BID magnesium hydroxide [Milk of Magnesia] 400 mg/5 mL Suspension 400 mg PO DAILY PRN (Reason: Constipation) bisacodyl 10 mg Suppository 10 mg KS DAILY PRN (Reason: Constipation) lidocaine-menthol [AsperFlex Max] 4-1 % Adhesive Patch,Medicated 1 patch TOPICAL DAILY Rx Instructions: administer for up to 12 hours nitrofurantoin monohyd/m-cryst [Macrobid] 100 mg capsule 100 mg PO BID 7 Days Qty: 14 0RF Rx Instructions: must administer with a meal/food lisinopril 2.5 mg tablet 2.5 mg PO DAILY tramadol 50 mg tablet 50 mg PO Q8H PRN (Reason: Pain) gabapentin 400 mg capsule 400 mg PO TID Referrals: Cassi Da Silva MD [Primary Care Provider] -
[2022-03-26 08:26] LABS: MANUAL DIFF FLAG NO
[2022-03-26 08:35] LABS: Basophils Absolute Auto 0.1 X10*3/uL (0.0-0.2); Basophils Percent Auto 0.8 % (0-2); Eosinophils Absolute Auto 0.2 X10*3/uL (0.0-0.4); Hematocrit 37.4 % (37.0-47.0); Imm Gran Abs Auto 0.01 X10*3/uL (0.00-0.03); Imm Gran Pct Auto 0.2 % (0.0-0.4); Lymphocytes Percent Auto 33.4 % (20-40); Mean Corpuscular HGB Conc 32.1 g/dl (31.0-35.0); Mean Corpuscular Hemoglobin 30.2 pg (27.0-33.0); Mean Corpuscular Volume 94.2 fL (80.0-98.0); Mean Platelet Volume 9.9 fL (9.4-12.3); Monocytes Absolute Auto 0.5 X10*3/uL (0.1-1.2); Monocytes Percent Auto 8.4 % (2-11); Neutrophils Absolute Auto 3.2 x10*3/uL (2.0-8.3); Neutrophils Percent Auto 54.2 % (45-73); Platelet Count 193 X10*3/uL (160-400); Red Blood Count 3.97 X10*6/uL (4.20-5.50); Red Cell Distribution Width 14.4 % (11.0-16.0)
[2022-03-26 08:50] LABS: Alanine Aminotransferase 16 U/L (0-31); Albumin Level 2.6 g/dL (3.5-5.0); Alkaline Phosphatase 101 U/L (39-117); Anion Gap 14 (12-20); Aspartate Amino Transferase 21 U/L (5-31); Bilirubin Total 0.4 mg/dL (0.0-1.0); Blood Urea Nitrogen 13 mg/dL (9-16); Calcium 8.2 mg/dL (8.4-10.2); Carbon Dioxide 29 mmol/L (22-29); Chloride 105 mmol/L (96-108); Creatinine Clr Calc Pharmacy 61.6; Estimated Glomerular Filt Rate > 60; Glucose Random 69 mg/dL (60-115); Potassium 4.2 mmol/L (3.3-5.1); Sodium 144 mmol/L (135-145)
--- NOTE | 2022-03-26 09:01 | PC.NURSE ---
pt passed swallow eval, had a drink in her purse and had been drinking it last night, r arm weakness and facial droop, states her walking is affected as well, wants to eat and wants her methadone, dr claros informed
[2022-03-26] MEDS: Acetaminophen 325 MG TABLET 975 MG PO (09:45)
[2022-03-26] MEDS: Lidocaine 4 % Patch ADH..PATCH 1 PATCH TRANSDERMA (09:46)
== END 2022-03-26 12:04 | disposition skilled nursing facility (03) ==
PROVIDERS: Emergency Provider Student in an Organized Health Care Education/Training Program; PCP Internal Medicine
DX: S00.03XA Contusion of scalp, initial encounter (principal); R55 Syncope and collapse; R51.9 Headache, unspecified; M54.2 Cervicalgia; M54.6 Pain in thoracic spine; W06.XXXA Fall from bed, initial encounter; Y93.9 Activity, unspecified; Y92.9 Unspecified place or not applicable; Y99.9 Unspecified external cause status; Z79.01 Long term (current) use of anticoagulants; Z79.899 Other long term (current) drug therapy
CPT/HCPCS: 36415; 70450; 72125; 72128; 80053; 82550; 85025; 93005; 99283; 99284

== ENCOUNTER → 2022-03-27 13:06 | Outpatient (BNVA) | payer MEDICARE, MEDICAID, SELFPAY | PROVIDERS: PCP Internal Medicine; Visit Provider Surgery Vascular Surgery | DX: I73.9 Peripheral vascular disease, unspecified (principal) | CPT/HCPCS: 99212 ==

== ENCOUNTER 2022-04-26 00:39 | Emergency (ER) | payer MEDICARE, MEDICAID, SELFPAY ==
--- NOTE | ~2022-04-26 | XR_ITS ---
EXAMINATION: XR HIP, RIGHT CLINICAL INFORMATION: Fall COMPARISON: 12/07/2021 TECHNIQUE: Two views of the right hip. AP pelvis. FINDINGS: Right hip arthroplasty hardware appears well seated and in anatomic alignment. No acute fracture is seen. Alignment across left hip is also anatomic. Redemonstrated degenerative change at the pubic symphysis. Sacroiliac joints appear intact. XR/XR hip RT w PEL1V IMPRESSION: No acute findings identified. Status post right hip arthroplasty.
--- NOTE | ~2022-04-26 | CT_ITS ---
EXAMINATION: NONCONTRAST HEAD CT NONCONTRAST CERVICAL SPINE CT INDICATION INFORMATION: Pain, fall COMPARISON: 03/26/2022 TECHNIQUE: Separate noncontrast CT examinations of the head and cervical spine were performed. Coronal head CT images and coronal and sagittal cervical spine images were created at the technologist workstation. DLP: 828 mGy-cm DOSE LOWERING TECHNIQUES: This CT examination was performed using dose optimization techniques as appropriate, variously including the following: - Automated exposure control - Adjustment of mA and/or kV according to patient size (this includes techniques or standardized protocols for targeted exams were dose is matched to indication/reason for exam; i.e. extremities or head) - Use of iterative reconstruction technique FINDINGS: Head: There is no evidence of acute intracranial hemorrhage or territorial infarction. No abnormal mass-effect or midline shift is seen. [place] to white matter differentiation is well preserved. No extra-axial fluid collections are identified. The ventricles are normal in size. There is moderate periventricular white matter hypoattenuation consistent with chronic small vessel ischemic disease. Mild volume loss is noted. The osseous structures and soft tissues are normal. The mastoid air cells and visualized portions of the paranasal sinuses are well-aerated. Cervical spine: Grade 1-2 anterolisthesis of C3 on C4 is unchanged from prior. Slight anterolisthesis of C7 on T1 is also stable. There is otherwise anatomic alignment of the vertebral bodies and posterior elements. Vertebral body heights are maintained. There is disc space narrowing of the mid to lower cervical spine with associated endplate osteophytes. Moderate bilateral facet arthropathy. No evidence of acute fracture. No prevertebral soft tissue swelling. Visualized portions of the lung apices are unremarkable. The thyroid gland is unremarkable. CT/CT cervical spine wo IV con IMPRESSION: HEAD: No acute intracranial findings. Chronic small vessel ischemic disease and volume loss. CERVICAL SPINE: No acute findings identified. Chronic and degenerative changes as noted above.
--- NOTE | ~2022-04-26 | XR_ITS ---
EXAMINATION: XR CHEST CLINICAL INFORMATION: Shortness of breath COMPARISON: 12/07/2021 TECHNIQUE: Frontal view of the chest was obtained. FINDINGS: There is persistent right hemidiaphragm elevation. Streaky bibasilar atelectasis versus scarring is redemonstrated. No acute consolidation is seen. No evidence of pneumothorax, significant pleural effusion, or pulmonary edema. Cardiac silhouette remains prominent. Degenerative changes are noted in the spine. XR/XR chest 1V IMPRESSION: No new acute findings. Persistent right hemidiaphragm elevation.
--- NOTE | ~2022-04-26 | XR_ITS ---
EXAMINATION: XR SHOULDER, RIGHT CLINICAL INFORMATION: Pain, fall COMPARISON: Chest x-ray 12/07/2021 TECHNIQUE: Three views of the right shoulder. FINDINGS: Chronic deformity of the right humeral neck favors healed old fracture. There is elevation of the humeral head relative to the glenoid fossa, suggesting chronic rotator cuff injury. Glenohumeral alignment otherwise appears preserved. No acute fracture is seen. There is suspected chronic fracture of the distal right clavicle. XR/XR shoulder RT min 2V IMPRESSION: No acute fracture identified. Chronic appearing changes as described above, including elevation of the humeral head suggesting chronic rotator cuff injury.
[2022-04-26 00:55] VITALS: BP 145/88; BP 160/100; PULSE 66; PULSE 72; RESP 16; O2SAT 90; O2SAT 91; BMI 16.5
[2022-04-26 00:59] VITALS: BP 145/88; PULSE 72; RESP 16; O2SAT 91
--- NOTE | 2022-04-26 01:02 | PC.NURSE ---
Pt presenting to ER after a fall out of bed. EMS reported the bed was low to the ground so the fall was not long. Pt struck the left side of her face, resulting in a hematoma above the left eyebrow. Pt is on blood thinners, denies any loss of consciousness. EMS applied a C-Collar per protocol. Pt is A&Ox4, GCS 15, skin is pink, cool, and dry.
--- NOTE | 2022-04-26 01:06 | ECG_ITS ---
Test Reason : FALL Blood Pressure : / mmHG Vent. Rate : 071 BPM Atrial Rate : 071 BPM P-R Int : 136 ms QRS Dur : 106 ms QT Int : 408 ms P-R-T Axes : 034 -34 012 degrees QTc Int : 443 ms Normal sinus rhythm Left axis deviation Nonspecific T wave abnormality Abnormal ECG When compared with ECG of 26-MAR-2022 07:46, No significant change was found Referred By: Beth Ellis Electronically Signed By:ARI DICKINSON MD
[2022-04-26 01:33] LABS: MANUAL DIFF FLAG NO
--- NOTE | 2022-04-26 01:33 | ED.FALL ---
HPI - Fall General Chief Complaint: Fall Stated Complaint: Fall out of bed,hip and head pain Time Seen by Provider: 04/26/22 00:53 Source: patient Mode of arrival: EMS History of Present Illness HPI Narrative: 71-year-old female brought in by EMS and states that she does not remember the exact circumstances but that she rolled out of bed and struck the left side of her face as well as her right hip with pain at the right hip and does endorse that she is on blood thinners. She otherwise reports that she has some right shoulder pain without limitation Related Data Home Medications Medication Instructions Recorded Confirmed albuterol sulfate 90 mcg/actuation 2 puff inhalation Q4H PRN copd 01/30/21 12/07/21 aerosol inhaler aluminum-mag hydroxide-simethicone 30 ml PO Q4H PRN GERD 01/30/21 12/07/21 200 mg-200 mg-20 mg/5 mL oral susp apixaban 5 mg tablet 5 mg PO BID 01/30/21 12/07/21 buspirone 5 mg tablet 5 mg PO TID 01/30/21 12/07/21 duloxetine 60 mg capsule,delayed 60 mg PO DAILY 01/30/21 12/07/21 release gabapentin 100 mg capsule 100 mg PO TID 01/30/21 12/07/21 levothyroxine 50 mcg tablet 50 mcg PO DAILY@0600 01/30/21 12/07/21 methadone 10 mg tablet 10 mg PO TID chronic pain 01/30/21 12/07/21 tiotropium bromide 2.5 2 puff inhalation DAILY 01/30/21 12/07/21 mcg/actuation mist for inhalation (Spiriva Respimat) gabapentin 400 mg capsule 400 mg PO TID 06/25/21 12/07/21 ondansetron HCl 4 mg tablet 4 mg PO Q8H PRN Nausea And Vomiting 07/23/21 12/07/21 lisinopril 2.5 mg tablet 2.5 mg PO DAILY 10/15/21 12/07/21 tramadol 50 mg tablet 50 mg PO Q8H PRN Pain 10/15/21 12/07/21 acetaminophen 325 mg tablet 650 mg PO Q6H PRN Pain 12/07/21 12/07/21 bisacodyl 10 mg rectal suppository 10 mg MD DAILY PRN Constipation 12/07/21 12/07/21 lidocaine 4 %-menthol 1 % topical 1 patch topical DAILY 12/07/21 12/07/21 patch (AsperFlex Max) magnesium hydroxide 400 mg/5 mL 400 mg PO DAILY PRN Constipation 12/07/21 12/07/21 oral suspension (Milk of Magnesia) naloxone 0.4 mg/mL injection 0.4 mg subcut Q2M PRN Opioid 12/07/21 12/07/21 solution Overdose polyethylene glycol 3350 17 gram 17 g PO DAILY 12/07/21 12/07/21 oral powder packet (Miralax) risperidone 0.25 mg tablet 0.25 mg PO BID 12/07/21 12/07/21 risperidone 0.5 mg tablet 0.5 mg PO BID 03/27/22 Previous Rx's Medication Instructions Recorded nitrofurantoin 100 mg PO BID 7 days #14 caps 12/07/21 monohydrate/macrocrystals 100 mg capsule (Macrobid) Allergies Allergy/AdvReac Type Severity Reaction Status Date / Time shellfish derived Allergy Unknown Verified 03/27/22 13:14 strawberry Allergy Unknown Verified 03/27/22 13:14 Sulfa (Sulfonamide Allergy Unknown Verified 03/27/22 13:14 Antibiotics) Review of Systems Review of Systems: Pertinent positives and negatives as stated in HPI [facility] Past Medical History Source: nursing notes reviewed Medical History Acute respiratory failure with hypoxia Alcohol abuse, uncomplicated Alcoholism Anemia in other chronic diseases classified elsewhere Bacteremia Brief psychotic disorder Cellulitis of unspecified part of limb COVID-19 Dilated cbd, acquired Falls Localized edema Metabolic encephalopathy Non-pressure chronic ulcer of right calf with unspecified severity Opiate dependence Opioid dependence, in remission Other abnormalities of gait and mobility Other chronic pain Personal history of other venous thrombosis and embolism Pulmonary embolus Unsteadiness on feet Social History Social History Household Members: Other Household Members Other:: SNF Housing: Custodial Do you presently have visiting nurse or other home services: No Unable to assess alcohol history related to: Unable to respond and Unknown Alcohol intake: never Patient Tobacco Use Status: Never used Tobacco Tobacco use type: Cigarette Smoked in Last 30 Days: No Use of substances other than those prescribed or required for medical reasons: No Advance Directives: Yes Advance Directives Information Provided: Yes Advance Directives on File: Yes Advance Directives Date on File: 03/14/21 service: No Current occupational status: retired Physical Exam Vital Signs: Vital Signs: Last Vital Signs Temp 98.2 F 04/26/22 02:46 Pulse 62 04/26/22 02:46 Resp 12 04/26/22 02:46 BP 131/87 04/26/22 02:46 Pulse Ox 93 04/26/22 02:46 O2 Del Method 04/26/22 02:46 O2 Flow Rate 2 04/26/22 02:46 BMI result Body Mass Index 16.5 VITAL SIGNS: Reviewed. GENERAL: Cachectic, kyphotic, elderly, in mild distress. HEAD: Normocephalic/atraumatic EYES: PERRLA, EOMI EARS: Ext canals without abnormality NOSE: Nares patent bilateral OROPHARYNX: no oral lesions noted, posterior pharynx clear NECK: C-collar in place, no adenopathy, no midline cervical spine tenderness LUNGS: Normal breath sounds. No adventitious sounds or accessory muscle use. SpO2<93> CARDIOVASCULAR: Regular rate and rhythm without noted murmurs, no JVD or lower extremity edema. ABDOMEN: Soft, non-tender, non-distended with bowel sounds. PELVIS: Stable, tenderness to right hip MUSCULOSKELETAL: No tenderness, deformities, or effusions noted on gross inspection. EXTREMITIES: No cyanosis, clubbing or edema; RIGHT SHOULDER: There is no erythema/induration and no obvious deformity or effusion and patient has full range of motion at that shoulder but reports pain SKIN: Inspection of the skin reveals no rashes NEUROLOGIC: Alert and oriented x 4. Strength and sensation to light touch were grossly intact x 4. Medical Decision Making Medical Decision Making MDM Narrative: 71-year-old fragile appearing woman with a fall on blood thinners. Pain at right shoulder and right hip will get basic lab work make sure she does not have a bleed in the head or any acute injuries to the cervical spine/shoulder/right hip. I reviewed all investigations in my interpretation is that patient has soft tissue injury that she can be treated with Tylenol and/or ibuprofen with follow-up with her primary care provider. Differential Diagnosis Please see the discussion above Lab Data Please see the discussion above 04/26/22 01:28 04/26/22 01:28 Labs: Lab Results 04/26/22 04/26/22 04/26/22 Range/Units 01:28 01:28 01:28 WBC 6.6 (4.8-10.8) X10*3/uL RBC 3.97 L (4.20-5.50) X10*6/uL Hgb 11.9 L (12.0-16.0) g/dl Hct 37.8 (37.0-47.0) % MCV 95.2 (80.0-98.0) fL MCH 30.0 (27.0-33.0) pg MCHC 31.5 (31.0-35.0) g/dl RDW 13.9 (11.0-16.0) % Plt Count 211 (160-400) X10*3/uL MPV 9.6 (9.4-12.3) fL Immature Gran % (Auto) 0.2 (0.0-0.4) % Neut % (Auto) 50.5 (45-73) % Lymph % (Auto) 38.1 (20-40) % [place] % (Auto) 7.4 (2-11) % Eos % (Auto) 2.9 (0-4) % Baso % (Auto) 0.9 (0-2) % Lymph # (Auto) 2.5 (1.2-4.9) X10*3/uL [place] # (Auto) 0.5 (0.1-1.2) X10*3/uL Eos # (Auto) 0.2 (0.0-0.4) X10*3/uL Baso # (Auto) 0.1 (0.0-0.2) X10*3/uL Abs Immat Gran (auto) 0.01 (0.00-0.03) X10*3/uL Absolute Neuts (auto) 3.3 (2.0-8.3) x10*3/uL Absolute Nucleated RBC 0.000 (0.0-0.012) X10*3/uL Nucleated RBC % (auto) 0.0 (0.0-0.2) /100WBC PT 16.0 H (10.0-13.1) SEC INR 1.4 H (0.9-1.1) Sodium 141 (135-145) mmol/L Potassium 4.2 (3.3-5.1) mmol/L Chloride 101 (96-108) mmol/L Carbon Dioxide 32 H (22-29) mmol/L Anion Gap 12 (12-20) BUN 13 (9-16) mg/dL Creatinine 0.64 (0.5-1.4) mg/dL Estim Creat Clear Calc 65.5 Estimated GFR > 60 Random Glucose 79 (60-115) mg/dL Calcium 8.6 (8.4-10.2) mg/dL Total Bilirubin 0.5 (0.0-1.0) mg/dL AST 19 (5-31) U/L ALT 11 (0-31) U/L Alkaline Phosphatase 92 (39-117) U/L Troponin I High Sens (<3.5-17.0) ng/L Total Protein 5.5 L (6.5-8.0) g/dL Albumin 3.0 L (3.5-5.0) g/dL 04/26/22 Range/Units 01:28 WBC (4.8-10.8) X10*3/uL RBC (4.20-5.50) X10*6/uL Hgb (12.0-16.0) g/dl Hct (37.0-47.0) % MCV (80.0-98.0) fL MCH (27.0-33.0) pg MCHC (31.0-35.0) g/dl RDW (11.0-16.0) % Plt Count (160-400) X10*3/uL MPV (9.4-12.3) fL Immature Gran % (Auto) (0.0-0.4) % Neut % (Auto) (45-73) % Lymph % (Auto) (20-40) % [place] % (Auto) (2-11) % Eos % (Auto) (0-4) % Baso % (Auto) (0-2) % Lymph # (Auto) (1.2-4.9) X10*3/uL [place] # (Auto) (0.1-1.2) X10*3/uL Eos # (Auto) (0.0-0.4) X10*3/uL Baso # (Auto) (0.0-0.2) X10*3/uL Abs Immat Gran (auto) (0.00-0.03) X10*3/uL Absolute Neuts (auto) (2.0-8.3) x10*3/uL Absolute Nucleated RBC (0.0-0.012) X10*3/uL Nucleated RBC % (auto) (0.0-0.2) /100WBC PT (10.0-13.1) SEC INR (0.9-1.1) Sodium (135-145) mmol/L Potassium (3.3-5.1) mmol/L Chloride (96-108) mmol/L Carbon Dioxide (22-29) mmol/L Anion Gap (12-20) BUN (9-16) mg/dL Creatinine (0.5-1.4) mg/dL Estim Creat Clear Calc Estimated GFR Random Glucose (60-115) mg/dL Calcium (8.4-10.2) mg/dL Total Bilirubin (0.0-1.0) mg/dL AST (5-31) U/L ALT (0-31) U/L Alkaline Phosphatase (39-117) U/L Troponin I High Sens 6.6 (<3.5-17.0) ng/L Total Protein (6.5-8.0) g/dL Albumin (3.5-5.0) g/dL Independent Interpretation I performed an independent interpretation of an: EKG Interpretation: Normal sinus rhythm, HR-71, no STEMI, MD/QTC are within normal limits, QRS-106 Radiology Impression Radiologist Impression: My interpretation is in agreement with radiology's impression of the imaging studies. External Record Review External record reviewed: Outpatient record and Prior outpatient labs Critical Care Time Critical Care Time Critical Care Time: Yes Total Critical Care Time: 30 Attestation: I personally attest to this time spent taking care of the patient. Discharge Plan Discharge Clinical Impression: Fall, Soft tissue injury Patient Disposition: Xfer SNF Instructions: Fall Prevention (ED), Fall Prevention for Older Adults (ED), Contusion in Adults (ED) Additional Instructions: 1. Resume all home medications as prescribed. 2. Recommend [id number] Tylenol/ibuprofen as needed for pain control 3. Follow-up with your primary care provider on Thursday. Return to the ER for any worsening symptoms. Prescriptions: No Action ondansetron HCl 4 mg Tablet 4 mg PO Q8H PRN (Reason: Nausea And Vomiting) buspirone 5 mg Tablet 5 mg PO TID methadone 10 mg Tablet 10 mg PO TID levothyroxine 50 mcg Tablet 50 mcg PO DAILY@0600 gabapentin 100 mg Capsule 100 mg PO TID Rx Instructions: take with gabapentin 400 mg alum-mag hydroxide-simeth 200-200-20 mg/5 mL Suspension 30 ml PO Q4H PRN (Reason: GERD) albuterol sulfate 90 mcg/actuation Hfa Aerosol Inhaler 2 puff INHALATION Q4H PRN (Reason: copd) duloxetine 60 mg Capsule,Delayed Release(Dr/Ec) 60 mg PO DAILY Spiriva Respimat 2.5 mcg/actuation Mist 2 puff INHALATION DAILY apixaban 5 mg Tablet 5 mg PO BID acetaminophen 325 mg Tablet 650 mg PO Q6H PRN (Reason: Pain) polyethylene glycol 3350 [Miralax] 17 gram Powder In Packet 17 g PO DAILY naloxone 0.4 mg/mL Solution 0.4 mg SUBCUT Q2M PRN (Reason: Opioid Overdose) Rx Instructions: NTExceed 10 mg total dose/episode risperidone 0.25 mg Tablet 0.25 mg PO BID magnesium hydroxide [Milk of Magnesia] 400 mg/5 mL Suspension 400 mg PO DAILY PRN (Reason: Constipation) bisacodyl 10 mg Suppository 10 mg MD DAILY PRN (Reason: Constipation) lidocaine-menthol [AsperFlex Max] 4-1 % Adhesive Patch,Medicated 1 patch TOPICAL DAILY Rx Instructions: administer for up to 12 hours nitrofurantoin monohyd/m-cryst [Macrobid] 100 mg capsule 100 mg PO BID 7 Days Qty: 14 0RF Rx Instructions: must administer with a meal/food lisinopril 2.5 mg tablet 2.5 mg PO DAILY tramadol 50 mg tablet 50 mg PO Q8H PRN (Reason: Pain) gabapentin 400 mg capsule 400 mg PO TID risperidone 0.5 mg tablet 0.5 mg PO BID
[2022-04-26 01:36] LABS: Basophils Absolute Auto 0.1 X10*3/uL (0.0-0.2); Basophils Percent Auto 0.9 % (0-2); Eosinophils Absolute Auto 0.2 X10*3/uL (0.0-0.4); Eosinophils Percent Auto 2.9 % (0-4); Hematocrit 37.8 % (37.0-47.0); Hemoglobin 11.9 g/dl (12.0-16.0); Imm Gran Abs Auto 0.01 X10*3/uL (0.00-0.03); Imm Gran Pct Auto 0.2 % (0.0-0.4); Lymphocytes Absolute Auto 2.5 X10*3/uL (1.2-4.9); Lymphocytes Percent Auto 38.1 % (20-40); Mean Corpuscular HGB Conc 31.5 g/dl (31.0-35.0); Mean Corpuscular Volume 95.2 fL (80.0-98.0); Mean Platelet Volume 9.6 fL (9.4-12.3); Monocytes Absolute Auto 0.5 X10*3/uL (0.1-1.2); Monocytes Percent Auto 7.4 % (2-11); Neutrophils Absolute Auto 3.3 x10*3/uL (2.0-8.3); Neutrophils Percent Auto 50.5 % (45-73); Platelet Count 211 X10*3/uL (160-400); Red Blood Count 3.97 X10*6/uL (4.20-5.50); Red Cell Distribution Width 13.9 % (11.0-16.0); White Blood Count 6.6 X10*3/uL (4.8-10.8)
[2022-04-26 01:49] LABS: INTERNATIONAL NORM RATIO 1.4 (0.9-1.1)
[2022-04-26 01:50] LABS: Alanine Aminotransferase 11 U/L (0-31); Alkaline Phosphatase 92 U/L (39-117); Anion Gap 12 (12-20); Aspartate Amino Transferase 19 U/L (5-31); Bilirubin Total 0.5 mg/dL (0.0-1.0); Blood Urea Nitrogen 13 mg/dL (9-16); Calcium 8.6 mg/dL (8.4-10.2); Carbon Dioxide 32 mmol/L (22-29); Chloride 101 mmol/L (96-108); Creatinine Clr Calc Pharmacy 65.5; Estimated Glomerular Filt Rate > 60; Glucose Random 79 mg/dL (60-115); Potassium 4.2 mmol/L (3.3-5.1); Sodium 141 mmol/L (135-145); Total Protein 5.5 g/dL (6.5-8.0)
[2022-04-26 01:55] LABS: Troponin-I High Sensitivity 6.6 ng/L (<3.5-17.0)
[2022-04-26 02:46] VITALS: BP 131/87; PULSE 62; RESP 12; TEMP 36.8; O2SAT 93
[2022-04-26 04:00] VITALS: BP 140/88; PULSE 61; RESP 16; TEMP 36.8; O2SAT 98
--- NOTE | 2022-04-26 04:00 | MHC.EDTECH ---
0400 ROUNDING DONE ,VITALS SIGN TAKEN PT SLEEPING ,WAITING FOR TRANSPORT TO RETURN TO SNF .
--- NOTE | 2022-04-26 04:37 | MHC.EDTECH ---
Marcia called at 0438 for a bls transfer back to [facility].Rn aware
[2022-04-26 06:00] VITALS: BP 163/89; PULSE 75; RESP 16; TEMP 36.3; O2SAT 97
--- NOTE | 2022-04-26 06:00 | MHC.EDTECH ---
pt was inconient of urine ,care given, bed pad change warm blanket given ,pt waiting for transport back to snf .
--- NOTE | 2022-04-26 08:07 | PC.NURSE ---
PT WAS DISCHARGED BY LAST SHIFT
== END 2022-04-26 08:06 | disposition skilled nursing facility (03) ==
PROVIDERS: Emergency Provider Student in an Organized Health Care Education/Training Program
DX: S40.011A Contusion of right shoulder, initial encounter (principal); S70.01XA Contusion of right hip, initial encounter; W06.XXXA Fall from bed, initial encounter; F11.20 Opioid dependence, uncomplicated; Z86.711 Personal history of pulmonary embolism; Z86.718 Personal history of other venous thrombosis and embolism; Z79.02 Long term (current) use of antithrombotics/antiplatelets; Z79.899 Other long term (current) drug therapy; Z91.81 History of falling; Y93.84 Activity, sleeping; Y92.122 Bedroom in nursing home as the place of occurrence of the external cause; Y99.9 Unspecified external cause status
CPT/HCPCS: 36415; 70450; 71045; 72125; 73030; 73502; 80053; 84484; 85025; 85610; 93005; 99284; 99285

== ENCOUNTER 2022-05-17 15:12 | Emergency (ER) | payer MEDICARE, MEDICAID, SELFPAY ==
--- NOTE | ~2022-05-17 | XR_ITS ---
EXAMINATION: XR HIP, RIGHT CLINICAL INFORMATION: Right hip pain, fall COMPARISON: 04/26/2022 TECHNIQUE: Two views of the right hip. FINDINGS: Patient status post right hip total arthroplasty. Surgical components are well-positioned without complication and unchanged compared to the prior exam. No acute fracture seen. Bones are osteopenic. XR/XR hip RT w [id number] IMPRESSION: No acute fractures
[2022-05-17 15:21] VITALS: BP 138/88; PULSE 72; O2SAT 95
[2022-05-17 15:27] VITALS: BP 155/84; PULSE 74; RESP 18; TEMP 36.8; O2SAT 96; BMI 15.7
[2022-05-17 15:50] VITALS: BP 130/88; PULSE 74; RESP 18; TEMP 36.7; O2SAT 96
--- NOTE | 2022-05-17 16:08 | ED_ITS ---
HPI - Fall General Chief Complaint: Fall Stated Complaint: FALL,-LOC,+[facility]INNERS FROM SNF PER EMS Time Seen by Provider: 05/17/22 15:52 Source: patient and EMS Mode of arrival: EMS Limitations: no limitations History of Present Illness HPI Narrative: This is a 71-year-old female with a past medical history of mental health, metabolic encephalopathy, opiate dependence, P 80, DVT, PE, chronic anemia on Eliquis who presents from a [facility] after slid out of bed landing on the right hip. There was no hitting of head or loss of consciousness. Patient reports she has chronic right hip pain. Patient denies any neck pain, headache, chest pain, back pain, abdominal pain, weakness, vision changes or vomiting. Related Data Home Medications Medication Instructions Recorded Confirmed albuterol sulfate 90 mcg/actuation 2 puff inhalation Q4H PRN copd 01/30/21 12/07/21 aerosol inhaler aluminum-mag hydroxide-simethicone 30 ml PO Q4H PRN GERD 01/30/21 12/07/21 200 mg-200 mg-20 mg/5 mL oral susp apixaban 5 mg tablet 5 mg PO BID 01/30/21 12/07/21 buspirone 5 mg tablet 5 mg PO TID 01/30/21 12/07/21 duloxetine 60 mg capsule,delayed 60 mg PO DAILY 01/30/21 12/07/21 release gabapentin 100 mg capsule 100 mg PO TID 01/30/21 12/07/21 levothyroxine 50 mcg tablet 50 mcg PO DAILY@0600 01/30/21 12/07/21 methadone 10 mg tablet 10 mg PO TID chronic pain 01/30/21 12/07/21 tiotropium bromide 2.5 2 puff inhalation DAILY 01/30/21 12/07/21 mcg/actuation mist for inhalation (Spiriva Respimat) gabapentin 400 mg capsule 400 mg PO TID 06/25/21 12/07/21 ondansetron HCl 4 mg tablet 4 mg PO Q8H PRN Nausea And Vomiting 07/23/21 12/07/21 lisinopril 2.5 mg tablet 2.5 mg PO DAILY 10/15/21 12/07/21 tramadol 50 mg tablet 50 mg PO Q8H PRN Pain 10/15/21 12/07/21 acetaminophen 325 mg tablet 650 mg PO Q6H PRN Pain 12/07/21 12/07/21 bisacodyl 10 mg rectal suppository 10 mg TX DAILY PRN Constipation 12/07/21 12/07/21 lidocaine 4 %-menthol 1 % topical 1 patch topical DAILY 12/07/21 12/07/21 patch (AsperFlex Max) magnesium hydroxide 400 mg/5 mL 400 mg PO DAILY PRN Constipation 12/07/21 12/07/21 oral suspension (Milk of Magnesia) naloxone 0.4 mg/mL injection 0.4 mg subcut Q2M PRN Opioid 12/07/21 12/07/21 solution Overdose polyethylene glycol 3350 17 gram 17 g PO DAILY 12/07/21 12/07/21 oral powder packet (Miralax) risperidone 0.25 mg tablet 0.25 mg PO BID 12/07/21 12/07/21 risperidone 0.5 mg tablet 0.5 mg PO BID 03/27/22 Previous Rx's Medication Instructions Recorded nitrofurantoin 100 mg PO BID 7 days #14 caps 12/07/21 monohydrate/macrocrystals 100 mg capsule (Macrobid) Allergies Allergy/AdvReac Type Severity Reaction Status Date / Time shellfish derived Allergy Unknown Verified 05/17/22 15:25 strawberry Allergy Unknown Verified 05/17/22 15:25 Sulfa (Sulfonamide Allergy Unknown Verified 05/17/22 15:25 Antibiotics) Review of Systems Review of Systems: Yes all other systems are reviewed and are negative Constitutional: Constitutional: Reports no additional constitutional complaints, Denies body ache(s), Denies chills, Denies fever(s), Denies headache(s) and Denies weakness Eyes: Eyes: Reports no additional eye complaints and Denies change in vision ENT: Reports system reviewed and no additional complaints, except as documented, Denies dizziness, Denies headache(s), Denies nasal congestion, Denies nasal discharge and Denies neck pain Cardiovascular: Cardiovascular: Reports no additional cardiovascular complaints, Denies chest pain, Denies leg edema and Denies dyspnea Respiratory: Respiratory: Reports no additional respiratory complaints, Denies cough and Denies dyspnea Gastrointestinal: Gastrointestinal: Reports no additional gastrointestinal complaints, Denies abdominal pain, Denies diarrhea, Denies nausea and Denies vomiting Genitourinary: Genitourinary: Reports no additional female genitourinary complaints and Denies urinary incontinence Musculoskeletal: Musculoskeletal: Reports no additional musculoskeletal complaints, Denies back pain, Reports arthralgias, Denies joint swelling, Denies neck pain, Denies numbness and Denies tingling Integumentary/Breasts: Skin/Breast: Reports system reviewed and no additional complaints, except as docu and Denies rash Neurologic: Reports system reviewed and no additional complaints, except as documented, Denies Abnormal speech present, Denies dizziness, Denies headache(s), Denies numbness, Denies tingling and Denies weakness [facility] Past Medical History Attestation statement: The following information was validated with the patient. Source: old records reviewed and nursing notes reviewed Medical History Acute respiratory failure with hypoxia Alcohol abuse, uncomplicated Alcoholism Anemia in other chronic diseases classified elsewhere Bacteremia Brief psychotic disorder Cellulitis of unspecified part of limb COVID-19 Dilated cbd, acquired Falls Localized edema Metabolic encephalopathy Non-pressure chronic ulcer of right calf with unspecified severity Opiate dependence Opioid dependence, in remission Other abnormalities of gait and mobility Other chronic pain Personal history of other venous thrombosis and embolism Pulmonary embolus Unsteadiness on feet Social History Social History Household Members: Other Household Members Other:: SNF Housing: [facility] Do you presently have visiting nurse or other home services: No Unable to assess alcohol history related to: Unable to respond and Unknown Alcohol intake: former Patient Tobacco Use Status: Never used Tobacco Tobacco use type: Cigarette Smoked in Last 30 Days: No Use of substances other than those prescribed or required for medical reasons: No Advance Directives: Yes Advance Directives on File: Yes Advance Directives Date on File: 03/14/21 service: No Current occupational status: retired Physical Exam Vital Signs: Vital Signs: Last Vital Signs Temp 98.1 F 05/17/22 15:50 Pulse 74 05/17/22 15:50 Resp 18 05/17/22 15:50 BP 130/88 05/17/22 15:50 Pulse Ox 96 05/17/22 15:50 O2 Del Method Room Air 05/17/22 15:50 BMI result Body Mass Index 15.7 Const: General: cooperative, healthy appearing, comfortable and no acute distress Orientation/consciousness: patient oriented x3 Limitations: no limitations HEENT: Head: Yes normal to inspection Ears: hearing grossly normal bilaterally General nose exam: Normal external nose present Face and sinus: Yes normal facial exam Mouth: Normal oral and palatal mucosa present Throat: Yes posterior oropharynx normal Eyes: General: appearance normal, both eyes and all related structures Pupils: Equal, round and reactive pupils present Neck: Neck: Yes normal visual inspection Chest: Chest palpation & inspection: normal inspection of the chest Resp: Effort & Inspection: normal respiratory effort Auscultation: clear to auscultation bilaterally Cardio: Rate: regular rate Rhythm: regular rhythm Peripheral pulses: Peripheral pulses 2+ throughout GI: Inspection: Yes normal to inspection Palpation (GI): Soft to palpation and nontender Auscultation: normal bowel sounds Back/Spine/Pelvis: Thoracic/Lumbar Spine: thoracic and lumbar spine normal to inspection Skin: General skin exam: no rashes or lesions noted Neuro: General: patient oriented x3, moves all extremities, no focal motor deficits, normal sensation to monofilament and Unable to assess gait Cranial nerves: Yes CN's II-XII intact bilaterally, Yes Equal, round and reactive pupils present, Yes Bilaterally intact EOM present, Yes Nystagmus not present, Yes Normal facial strength present and Yes Midline tongue present Cognition (Neuro): normal cognition Speech: No Abnormal speech present Gait exam (Neuro): Unable to assess gait Motor exam (neuro): 5/5 motor strength present throughout Sensory Exam: Normal double simultaneous stimulation for sensation Extrem: Other: Hip is held in partial flexion which patient tells me is the most comfortable position for her. She tells me that this has felt this way before and is secondary to her chronic pain and she does not feel like it is worsened. She is able to extend the leg. She does have distal DP and PT pulses. Sensation is intact distally. General: Yes normal to inspection Course Course Course Narrative: X-rays of the right hip show no acute fracture. Patient will be discharged back to the short-term rehab facility for further management. Likely contusion. Medical Decision Making Medical Decision Making MDM Narrative: 71-year-old female coming from a [facility] with right hip pain after she slid out of bed just prior to arrival. She is on Eliquis. She is alert and oriented x3 with no focal neurological deficits and denies any head strike or loss of consciousness Will check x-rays of right hip Differential Diagnosis Differential Diagnoses: The differential diagnosis associated with the presentation includes Fracture, contusion Independent Interpretation I performed an independent interpretation of an: Plain X-Ray Interpretation: Independently reviewed the x-ray and agree with radiologist's report Radiology Impression Discussion of test interpretation with radiology: I have reviewed the radiologist's reading. Independent Historian Clinical information obtained from an independent historian. History obtained from or confirmed by: EMS Discharge Plan Discharge Clinical Impression: Contusion of hip Patient Disposition: [facility] Transfer Details: [facility] Rehab Instructions: Hip Contusion (ED) Additional Instructions: X-ray show no fracture Prescriptions: No Action ondansetron HCl 4 mg Tablet 4 mg PO Q8H PRN (Reason: Nausea And Vomiting) buspirone 5 mg Tablet 5 mg PO TID methadone 10 mg Tablet 10 mg PO TID levothyroxine 50 mcg Tablet 50 mcg PO DAILY@0600 gabapentin 100 mg Capsule 100 mg PO TID Rx Instructions: take with gabapentin 400 mg alum-mag hydroxide-simeth 200-200-20 mg/5 mL Suspension 30 ml PO Q4H PRN (Reason: GERD) albuterol sulfate 90 mcg/actuation Hfa Aerosol Inhaler 2 puff INHALATION Q4H PRN (Reason: copd) duloxetine 60 mg Capsule,Delayed Release(Dr/Ec) 60 mg PO DAILY Spiriva Respimat 2.5 mcg/actuation Mist 2 puff INHALATION DAILY apixaban 5 mg Tablet 5 mg PO BID acetaminophen 325 mg Tablet 650 mg PO Q6H PRN (Reason: Pain) polyethylene glycol 3350 [Miralax] 17 gram Powder In Packet 17 g PO DAILY naloxone 0.4 mg/mL Solution 0.4 mg SUBCUT Q2M PRN (Reason: Opioid Overdose) Rx Instructions: NTExceed 10 mg total dose/episode risperidone 0.25 mg Tablet 0.25 mg PO BID magnesium hydroxide [Milk of Magnesia] 400 mg/5 mL Suspension 400 mg PO DAILY PRN (Reason: Constipation) bisacodyl 10 mg Suppository 10 mg TX DAILY PRN (Reason: Constipation) lidocaine-menthol [AsperFlex Max] 4-1 % Adhesive Patch,Medicated 1 patch TOPICAL DAILY Rx Instructions: administer for up to 12 hours nitrofurantoin monohyd/m-cryst [Macrobid] 100 mg capsule 100 mg PO BID 7 Days Qty: 14 0RF Rx Instructions: must administer with a meal/food lisinopril 2.5 mg tablet 2.5 mg PO DAILY tramadol 50 mg tablet 50 mg PO Q8H PRN (Reason: Pain) gabapentin 400 mg capsule 400 mg PO TID risperidone 0.5 mg tablet 0.5 mg PO BID
--- NOTE | 2022-05-17 16:09 | PC.NURSE ---
Pt reports pain in right side near her hip. Pt reports that the pain on the right side is from a prior fall years ago, not new from today. Pt reports that she slid out of bed today onto her left side, but does not have any new pain and no pain on her left side.
--- NOTE | 2022-05-17 19:05 | PC.NURSE ---
RN-RN report called into [facility].
== END 2022-05-17 19:06 | disposition skilled nursing facility (03) ==
PROVIDERS: Emergency Provider Emergency Medicine; PCP Family Medicine
DX: S70.01XA Contusion of right hip, initial encounter (principal); W06.XXXA Fall from bed, initial encounter; F11.20 Opioid dependence, uncomplicated; F10.20 Alcohol dependence, uncomplicated; R63.6 Underweight; Z68.1 Body mass index [BMI] 19.9 or less, adult; Z86.718 Personal history of other venous thrombosis and embolism; Z86.711 Personal history of pulmonary embolism; Z79.01 Long term (current) use of anticoagulants; Z79.899 Other long term (current) drug therapy; Y93.89 Activity, other specified; Y92.122 Bedroom in nursing home as the place of occurrence of the external cause; Y99.9 Unspecified external cause status
CPT/HCPCS: 73502; 99283; 99284

== ENCOUNTER 2022-11-16 18:31 | Inpatient (IN) | payer MEDICARE, MEDICAID, SELFPAY ==
[2022-11-16] VITALS (8 sets, daily range): BP systolic 92–124; BP diastolic 62–75; PULSE 83–108; RESP 14–20; TEMP 36.4–38.7; O2SAT 83–97; BMI 17.8
--- NOTE | ~2022-11-16 | XR_ITS ---
EXAMINATION: XR chest 1V CLINICAL INFORMATION: Reason for Exam Fever, hypoxic, rule out pneumonia COMPARISON: Prior chest x-ray April 2022 TECHNIQUE: XR chest 1V Tubes and lines: None Lungs and pleura: Exam limited by severe kyphosis. Developed opacification over the right lung base obscuring the right hemidiaphragm suggesting infiltrate or atelectasis. Left subpulmonic pleural effusion. Heart and mediastinum: Cardiac silhouette is enlarged.. Bones/soft tissue: Skeletal structures included are normal for patient's age. XR/XR chest 1V IMPRESSION: * Developed opacification over the right lung base obscuring the right hemidiaphragm suggesting infiltrate or atelectasis. * Subpulmonic pleural effusions. * Cardiac silhouette is enlarged. * Exam limited by severe kyphosis and left dextroscoliosis of thoracolumbar spine.
--- NOTE | ~2022-11-16 | XR_ITS ---
EXAMINATION: XR CHEST CLINICAL INFORMATION: Question of pneumonia COMPARISON: 11/16/2022 TECHNIQUE: AP upright portable view of the chest was obtained. 14:30 FINDINGS: The exam is limited by severe kyphosis and dextroscoliosis of the spine. Lung volumes are low. There is patchy opacity in the region of the lingula. There is bibasilar patchy opacity consistent with atelectasis and/or pneumonia. There is bilateral blunting of the costophrenic angles consistent with small pleural effusions. There is limited evaluation of the cardiac silhouette. There are bilateral rib fractures. XR/XR chest 1V IMPRESSION: Patchy opacity in the region of the lingula suggestive of pneumonia. Bibasilar patchy opacities consistent with atelectasis and/or pneumonia. Small bilateral pleural effusions
--- NOTE | 2022-11-16 18:37 | ED_ITS ---
HPI - SOB/Dyspnea General Chief Complaint: Upper Respiratory Symptoms Stated Complaint: pat coming from snf, resp dist, per ems Source: EMS Mode of arrival: EMS Limitations: altered mental status History of Present Illness HPI Narrative: 72-year-old past medical history metabolic encephalopathy, cellulitis, chronic pressure ulcers, hypertension, anxiety, hypothyroidism, DVT, depression, chronic pain syndrome, pneumonia, who was sent from her nursing facility ([facility] and [facility]) for evaluation of altered mental status, fever of 102 degrees F and low O2 saturations of 80%. I did review the patient care referral form from the nursing facility I obtain the following information w: ?Thin liquids, regular diet/dysphagia texture, APAP 650 mg p.o. administered +albuterol inhaler 2 puffs at 17:20 hours temperature 102.2, unable to maintain O2 sat ?. Patient has a MOLST form and states that she is a full code. Patient was given albuterol nebulizer in route to the hospital, she was also placed on 6 L of oxygen via nasal cannula. Related Data Home Medications Medication Instructions Recorded Confirmed albuterol sulfate 90 mcg/actuation 2 puff inhalation Q4H PRN copd 01/30/21 12/07/21 aerosol inhaler aluminum-mag hydroxide-simethicone 30 ml PO Q4H PRN GERD 01/30/21 12/07/21 200 mg-200 mg-20 mg/5 mL oral susp apixaban 5 mg tablet 5 mg PO BID 01/30/21 12/07/21 buspirone 5 mg tablet 5 mg PO TID 01/30/21 12/07/21 duloxetine 60 mg capsule,delayed 60 mg PO DAILY 01/30/21 12/07/21 release gabapentin 100 mg capsule 100 mg PO TID 01/30/21 12/07/21 levothyroxine 50 mcg tablet 50 mcg PO DAILY@0600 01/30/21 12/07/21 methadone 10 mg tablet 10 mg PO TID chronic pain 01/30/21 12/07/21 tiotropium bromide 2.5 2 puff inhalation DAILY 01/30/21 12/07/21 mcg/actuation mist for inhalation (Spiriva Respimat) gabapentin 400 mg capsule 400 mg PO TID 06/25/21 12/07/21 ondansetron HCl 4 mg tablet 4 mg PO Q8H PRN Nausea And Vomiting 07/23/21 12/07/21 lisinopril 2.5 mg tablet 2.5 mg PO DAILY 10/15/21 12/07/21 tramadol 50 mg tablet 50 mg PO Q8H PRN Pain 10/15/21 12/07/21 acetaminophen 325 mg tablet 650 mg PO Q6H PRN Pain 12/07/21 12/07/21 bisacodyl 10 mg rectal suppository 10 mg NJ DAILY PRN Constipation 12/07/21 12/07/21 lidocaine 4 %-menthol 1 % topical 1 patch topical DAILY 12/07/21 12/07/21 patch (AsperFlex Max) magnesium hydroxide 400 mg/5 mL 400 mg PO DAILY PRN Constipation 12/07/21 12/07/21 oral suspension (Milk of Magnesia) naloxone 0.4 mg/mL injection 0.4 mg subcut Q2M PRN Opioid 12/07/21 12/07/21 solution Overdose polyethylene glycol 3350 17 gram 17 g PO DAILY 12/07/21 12/07/21 oral powder packet (Miralax) risperidone 0.25 mg tablet 0.25 mg PO BID 12/07/21 12/07/21 risperidone 0.5 mg tablet 0.5 mg PO BID 03/27/22 Previous Rx's Medication Instructions Recorded nitrofurantoin 100 mg PO BID 7 days #14 caps 12/07/21 monohydrate/macrocrystals 100 mg capsule (Macrobid) Allergies Allergy/AdvReac Type Severity Reaction Status Date / Time shellfish derived Allergy Unknown Verified 05/17/22 15:25 strawberry Allergy Unknown Verified 05/17/22 15:25 Sulfa (Sulfonamide Allergy Unknown Verified 05/17/22 15:25 Antibiotics) [facility] Past Medical History Medical History Dilated cbd, acquired Bacteremia Metabolic encephalopathy Brief psychotic disorder Acute respiratory failure with hypoxia COVID-19 Other chronic pain Unsteadiness on feet Other abnormalities of gait and mobility Personal history of other venous thrombosis and embolism Anemia in other chronic diseases classified elsewhere Alcohol abuse, uncomplicated Opioid dependence, in remission Localized edema Non-pressure chronic ulcer of right calf with unspecified severity Cellulitis of unspecified part of limb Falls Alcoholism Pulmonary embolus Opiate dependence Social History Social History Household Members: Other Household Members Other:: SNF Housing: Halfway Do you presently have visiting nurse or other home services: No Unable to assess alcohol history related to: Unable to respond and Unknown Alcohol intake: never Patient Tobacco Use Status: Never used Tobacco Tobacco use type: Cigarette Smoked in Last 30 Days: No Use of substances other than those prescribed or required for medical reasons: No Advance Directives: Yes Advance Directives on File: Yes Advance Directives Date on File: 03/14/21 service: No Current occupational status: retired Physical Exam 2 Vital Signs: Vital Signs: Last Vital Signs Temp 98.4 F 11/16/22 20:10 Pulse 95 11/16/22 20:15 Resp 18 11/16/22 20:15 BP 111/72 11/16/22 20:15 Pulse Ox 97 11/16/22 20:15 O2 Del Method Oxymask 11/16/22 20:15 O2 Flow Rate 8 11/16/22 20:15 Oxygen Flow Rate 15 11/16/22 19:20 BMI result Body Mass Index 17.8 Vital signs-initial rectal temperature was 101.6 degrees F, pulse was 108 Exam: General: Patient is awake, oriented person, she is very thin and cachectic, she appears to be in respiratory distress Head: Normocephalic, atraumatic EENT: PERRL, Lids normal, sclera normal, conjunctiva normal, nose normal , ears normal, throat without erythema or exudates Neck: Supple, no adenopathy, trachea midline and nontender Lung: Diffuse rhonchi with diminished breath sounds at the right base compared to the left, rales bilaterally at the bases, no wheezing Chest: symmetric movement, nontender Heart: Tachycardia, regular rhythm, normal S1, S2 no murmurs or rubs Abdomen: soft, non-tender, nondistended, normal bowel sounds Back: no vertebral tenderness, no CVAT Extremities: no deformities, moves all extremities symmetrically Skin: no rashes, no lesion, normal color and warmth Neuro: Awake, oriented, normal speech, moves all extremities symmetrically Psych: Pleasant, cooperative Medications Administered Discontinued Medications Generic Name Dose Route Start Last Admin Trade Name Freq PRN Reason Stop Dose Admin Acetaminophen 650 mg 11/16/22 18:34 11/16/22 19:08 Acetaminophen Supp 650 Mg Supp.Rect NJ 11/16/22 18:35 650 mg ONCE ONE Administration Albuterol Sulfate 5 mg/ 7.5 mg 11/16/22 19:04 11/16/22 19:06 Albuterol Sulfate 2.5 mg INHALE 11/16/22 19:05 7.5 mg ONCE ONE Administration Ceftriaxone Sodium 1 gm/ 50 mls @ 100 mls/hr 11/16/22 19:00 11/16/22 20:05 Sodium Chloride IV Infused Q12H CHASE Infusion Azithromycin 500 mg/ Sodium 250 mls @ 125 mls/hr 11/16/22 18:34 11/16/22 20:10 Chloride IV 11/16/22 20:33 125 mls/hr ONCE ONE Administration Sodium Chloride 1,410 mls @ 1,410 mls/hr 11/16/22 18:47 11/16/22 20:05 Ns 30 ml/kg infuse over 1 hr (1410 ml) 11/16/22 19:46 Infused IV Infusion .Q1H STA Medical Decision Making Medical Decision Making MDM Narrative: 72-year-old past medical history metabolic encephalopathy, cellulitis, chronic pressure ulcers, hypertension, anxiety, hypothyroidism, DVT, depression, chronic pain syndrome, pneumonia, who was sent from her nursing facility ([facility] and [facility]) for evaluation of altered mental status, fever of 102 degrees F and low O2 saturations of 80. Patient's temperature in the emergency department was 101.6 degrees F rectally and pulse was 108. O2 saturation on 5 L OxyMask was 94%. Lung exam revealed diffuse rhonchi with diminished breath sounds at the right compared to the left with rales at the bases as well. Patient was made a sepsis alert/code sepsis. Following evaluation was ordered: CBC, CMP, PT/INR, PTT, lactic acid, COVID-19, flu, RSV, use blood gas, blood cultures x2, chest x-ray one view, urinalysis by straight cath 2100: Patient's chest x-ray is consistent with right lower lobe pneumonia. I did discuss admission with the covering hospitalist, Dr. Quiorga and patient was accepted the hospice service for further treatment. 2111: Patient completed the fluid bolus, no hypotension was noted. Focused exam was completed. Differential Diagnosis Differential Diagnoses: The differential diagnosis associated with the presentation includes 1952: Differential diagnosis includes was not limited to pneumonia, viral syndrome, urinary tract infection, hypoxia with respiratory failure, dehydration, volume depletion, electrolyte abnormality, anemia Admission/Observation Consideration of admission/observation: Escalation of care including admission/observation considered Consult Healthcare Provider Management of the patient was discussed with: Hospitalist Lab Data MDM Lab Attestation statement: I reviewed the patient's lab results. My independent interpretation patient's laboratory evaluation is as follows: CBC was normal. PT INR and PTT were elevated, glucose elevated 158. Lactic acid was elevated 2.4. The venous blood gas revealed a normal pH of 7.39. COVID-19, RSV and influenza were negative. 11/16/22 18:55 11/16/22 18:55 Labs: Lab Results 11/16/22 11/16/22 11/16/22 Range/Units 18:36 18:55 19:07 WBC 9.0 (4.8-10.8) X10*3/uL RBC 4.10 L (4.20-5.50) X10*6/uL Hgb 12.7 (12.0-16.0) g/dl Hct 39.5 (37.0-47.0) % MCV 96.3 (80.0-98.0) fL MCH 31.0 (27.0-33.0) pg MCHC 32.2 (31.0-35.0) g/dl RDW 14.6 (11.0-16.0) % Plt Count 181 (160-400) X10*3/uL MPV 9.9 (9.4-12.3) fL Immature Gran % (Auto) 0.3 (0.0-0.4) % Neut % (Auto) 76.7 H (45-73) % Lymph % (Auto) 11.9 L (20-40) % [place] % (Auto) 8.8 (2-11) % Eos % (Auto) 1.9 (0-4) % Baso % (Auto) 0.4 (0-2) % Lymph # (Auto) 1.1 L (1.2-4.9) X10*3/uL [place] # (Auto) 0.8 (0.1-1.2) X10*3/uL Eos # (Auto) 0.2 (0.0-0.4) X10*3/uL Baso # (Auto) 0.0 (0.0-0.2) X10*3/uL Abs Immat Gran (auto) 0.03 (0.00-0.03) X10*3/uL Absolute Neuts (auto) 6.9 (2.0-8.3) x10*3/uL Absolute Nucleated RBC 0.000 (0.0-0.012) X10*3/uL Nucleated RBC % (auto) 0.0 (0.0-0.2) /100WBC PT 23.7 H (11.1-13.3) SEC INR 1.9 H (0.9-1.1) APTT 42.1 H (26.0-36.4) SEC VBG pH 7.39 (7.32-7.43) VBG pCO2 54 mmHg VBG pO2 77 mmHg VBG HCO3 33 H (22-26) mmol/L VBG O2 Saturation 94.0 % VBG Base Excess 6.6 mmol/L Sodium 141 (135-145) mmol/L Potassium 3.4 (3.3-5.1) mmol/L Chloride 105 (96-108) mmol/L Carbon Dioxide 27 (22-29) mmol/L Anion Gap 12 (12-20) BUN 15 (9-16) mg/dL Creatinine 0.64 (0.5-1.4) mg/dL Estim Creat Clear Calc 59.8 Estimated GFR > 60 POC Glucose 149 H (60-115) mg/dL Random Glucose 158 H (60-115) mg/dL Lactic Acid 2.4 H* (0.5-2.0) mmol/L Calcium 8.4 (8.4-10.2) mg/dL Total Bilirubin 0.8 (0.0-1.0) mg/dL AST 13 (5-31) U/L ALT 13 (0-31) U/L Alkaline Phosphatase 91 (39-117) U/L Total Protein 5.4 L (6.5-8.0) g/dL Albumin 2.7 L (3.5-5.0) g/dL Lipase < 4 L (8-78) U/L Urine Color Urine Appearance Urine pH (5.0-9.0) Ur Specific [place] (1.005-1.025) Urine Protein (Neg-Trace) mg/dL Urine Glucose (UA) (Negative) mg/dL Urine Ketones (Negative) mg/dL Urine Blood (Negative) Urine Nitrite (Negative) Ur Leukocyte Esterase (Negative) Urine RBC (0-2) /HPF Urine WBC (0-5) /HPF Ur Squamous Epith Cells (0-2) /HPF Urine Bacteria (None Seen) Hyaline Casts (0-2) /LPF Influenza Type A (PCR) NEGATIVE (Negative) Influenza Type B (PCR) NEGATIVE (Negative) RSV RNA Qual (PCR) NEGATIVE (Negative) SARS-CoV-2 RNA (RT-PCR) NEGATIVE (Negative) 11/16/22 Range/Units 20:16 WBC (4.8-10.8) X10*3/uL RBC (4.20-5.50) X10*6/uL Hgb (12.0-16.0) g/dl Hct (37.0-47.0) % MCV (80.0-98.0) fL MCH (27.0-33.0) pg MCHC (31.0-35.0) g/dl RDW (11.0-16.0) % Plt Count (160-400) X10*3/uL MPV (9.4-12.3) fL Immature Gran % (Auto) (0.0-0.4) % Neut % (Auto) (45-73) % Lymph % (Auto) (20-40) % [place] % (Auto) (2-11) % Eos % (Auto) (0-4) % Baso % (Auto) (0-2) % Lymph # (Auto) (1.2-4.9) X10*3/uL [place] # (Auto) (0.1-1.2) X10*3/uL Eos # (Auto) (0.0-0.4) X10*3/uL Baso # (Auto) (0.0-0.2) X10*3/uL Abs Immat Gran (auto) (0.00-0.03) X10*3/uL Absolute Neuts (auto) (2.0-8.3) x10*3/uL Absolute Nucleated RBC (0.0-0.012) X10*3/uL Nucleated RBC % (auto) (0.0-0.2) /100WBC PT (11.1-13.3) SEC INR (0.9-1.1) APTT (26.0-36.4) SEC VBG pH (7.32-7.43) VBG pCO2 mmHg VBG pO2 mmHg VBG HCO3 (22-26) mmol/L VBG O2 Saturation % VBG Base Excess mmol/L Sodium (135-145) mmol/L Potassium (3.3-5.1) mmol/L Chloride (96-108) mmol/L Carbon Dioxide (22-29) mmol/L Anion Gap (12-20) BUN (9-16) mg/dL Creatinine (0.5-1.4) mg/dL Estim Creat Clear Calc Estimated GFR POC Glucose (60-115) mg/dL Random Glucose (60-115) mg/dL Lactic Acid (0.5-2.0) mmol/L Calcium (8.4-10.2) mg/dL Total Bilirubin (0.0-1.0) mg/dL AST (5-31) U/L ALT (0-31) U/L Alkaline Phosphatase (39-117) U/L Total Protein (6.5-8.0) g/dL Albumin (3.5-5.0) g/dL Lipase (8-78) U/L Urine Color [place] A Urine Appearance Turbid Urine pH 6.0 (5.0-9.0) Ur Specific [place] 1.020 (1.005-1.025) Urine Protein 100 (2+) H (Neg-Trace) mg/dL Urine Glucose (UA) Negative (Negative) mg/dL Urine Ketones Negative (Negative) mg/dL Urine Blood Large (3+) H (Negative) Urine Nitrite Positive H (Negative) Ur Leukocyte Esterase Moderate (2+) H (Negative) Urine RBC >20 H (0-2) /HPF Urine WBC 21-50 H (0-5) /HPF Ur Squamous Epith Cells 11-20 (0-2) /HPF Urine Bacteria 4+ (None Seen) Hyaline Casts 6-10 (0-2) /LPF Influenza Type A (PCR) (Negative) Influenza Type B (PCR) (Negative) RSV RNA Qual (PCR) (Negative) SARS-CoV-2 RNA (RT-PCR) (Negative) Independent Interpretation I performed an independent interpretation of an: Plain X-Ray Interpretation: My interpretation patient's one-view chest x-ray is as follows: Right lower lobe infiltrate/pneumonia Radiology Impression Discussion of test interpretation with radiology: I have reviewed the radiologist's reading. Critical Care Time Critical Care Time Critical Care Time: Yes Total Critical Care Time: 45 Attestation: Critical Care: The patient was critically ill with a high probability of imminent or life threatening deterioration. I spent greater than 30 minutes of discontinuous time evaluating the patient,delivering critical care at the bedside, discussing and evaluating pertinent data with consultants. Critical care time does not include time spent performing separately billable procedures or teaching. Total time spent performing critical care was 45 minutes. Discharge Plan Discharge Clinical Impression: Acute respiratory failure with hypoxia Pneumonia Qualifiers: Laterality: right Lung location: lower lobe of lung Prescriptions: No Action ondansetron HCl 4 mg Tablet 4 mg PO Q8H PRN (Reason: Nausea And Vomiting) buspirone 5 mg Tablet 5 mg PO TID methadone 10 mg Tablet 10 mg PO TID levothyroxine 50 mcg Tablet 50 mcg PO DAILY@0600 gabapentin 100 mg Capsule 100 mg PO TID Rx Instructions: take with gabapentin 400 mg alum-mag hydroxide-simeth 200-200-20 mg/5 mL Suspension 30 ml PO Q4H PRN (Reason: GERD) albuterol sulfate 90 mcg/actuation Hfa Aerosol Inhaler 2 puff INHALATION Q4H PRN (Reason: copd) duloxetine 60 mg Capsule,Delayed Release(Dr/Ec) 60 mg PO DAILY Spiriva Respimat 2.5 mcg/actuation Mist 2 puff INHALATION DAILY apixaban 5 mg Tablet 5 mg PO BID acetaminophen 325 mg Tablet 650 mg PO Q6H PRN (Reason: Pain) polyethylene glycol 3350 [Miralax] 17 gram Powder In Packet 17 g PO DAILY naloxone 0.4 mg/mL Solution 0.4 mg SUBCUT Q2M PRN (Reason: Opioid Overdose) Rx Instructions: NTExceed 10 mg total dose/episode risperidone 0.25 mg Tablet 0.25 mg PO BID magnesium hydroxide [Milk of Magnesia] 400 mg/5 mL Suspension 400 mg PO DAILY PRN (Reason: Constipation) bisacodyl 10 mg Suppository 10 mg NJ DAILY PRN (Reason: Constipation) lidocaine-menthol [AsperFlex Max] 4-1 % Adhesive Patch,Medicated 1 patch TOPICAL DAILY Rx Instructions: administer for up to 12 hours nitrofurantoin monohyd/m-cryst [Macrobid] 100 mg capsule 100 mg PO BID 7 Days Qty: 14 0RF Rx Instructions: must administer with a meal/food lisinopril 2.5 mg tablet 2.5 mg PO DAILY tramadol 50 mg tablet 50 mg PO Q8H PRN (Reason: Pain) gabapentin 400 mg capsule 400 mg PO TID risperidone 0.5 mg tablet 0.5 mg PO BID
[2022-11-16 18:40] LABS: Glucose, Whole Blood 149 mg/dL (60-115)
[2022-11-16] MEDS: cefTRIAXone sodium 1 GM in 0.9 % Sodium Chloride 50 ML IV (19:03)
[2022-11-16 19:04] LABS: MANUAL DIFF FLAG NO
[2022-11-16] MEDS: Albuterol Sulfate 5 MG, Albuterol Sulfate (0.083%) 2.5 MG 7.5 MG INHALE (19:06)
[2022-11-16] MEDS: Acetaminophen Supp 650 MG SUPP.RECT PR (19:08)
[2022-11-16 19:11] LABS: INTERNATIONAL NORM RATIO 1.9 (0.9-1.1); Prothrombin Time 23.7 SEC (11.1-13.3)
[2022-11-16 19:13] LABS: Basophils Percent Auto 0.4 % (0-2); Eosinophils Absolute Auto 0.2 X10*3/uL (0.0-0.4); Eosinophils Percent Auto 1.9 % (0-4); Hematocrit 39.5 % (37.0-47.0); Hemoglobin 12.7 g/dl (12.0-16.0); Imm Gran Abs Auto 0.03 X10*3/uL (0.00-0.03); Imm Gran Pct Auto 0.3 % (0.0-0.4); Lymphocytes Absolute Auto 1.1 X10*3/uL (1.2-4.9); Lymphocytes Percent Auto 11.9 % (20-40); Mean Corpuscular HGB Conc 32.2 g/dl (31.0-35.0); Mean Corpuscular Volume 96.3 fL (80.0-98.0); Mean Platelet Volume 9.9 fL (9.4-12.3); Monocytes Absolute Auto 0.8 X10*3/uL (0.1-1.2); Monocytes Percent Auto 8.8 % (2-11); Neutrophils Absolute Auto 6.9 x10*3/uL (2.0-8.3); Neutrophils Percent Auto 76.7 % (45-73); Partial Thromboplastin Time 42.1 SEC (26.0-36.4); Platelet Count 181 X10*3/uL (160-400); Red Cell Distribution Width 14.6 % (11.0-16.0)
[2022-11-16 19:14] LABS: VBG Base Excess 6.6 mmol/L; VBG HCO3 33 mmol/L (22-26); VBG pCO2 54 mmHg; VBG pH 7.39 (7.32-7.43); VBG pO2 77 mmHg
[2022-11-16 19:35] LABS: Alanine Aminotransferase 13 U/L (0-31); Albumin Level 2.7 g/dL (3.5-5.0); Alkaline Phosphatase 91 U/L (39-117); Anion Gap 12 (12-20); Aspartate Amino Transferase 13 U/L (5-31); Bilirubin Total 0.8 mg/dL (0.0-1.0); Blood Urea Nitrogen 15 mg/dL (9-16); Calcium 8.4 mg/dL (8.4-10.2); Carbon Dioxide 27 mmol/L (22-29); Chloride 105 mmol/L (96-108); Creatinine Clr Calc Pharmacy 59.8; Estimated Glomerular Filt Rate > 60; Glucose Random 158 mg/dL (60-115); Lipase < 4 U/L (8-78); Potassium 3.4 mmol/L (3.3-5.1); Sodium 141 mmol/L (135-145); Total Protein 5.4 g/dL (6.5-8.0)
[2022-11-16 19:48] LABS: Lactic Acid 2.4 mmol/L (0.5-2.0)
[2022-11-16 19:52] LABS: Influenza A PCR NEGATIVE (Negative); Influenza B PCR NEGATIVE (Negative); Resp Syncy Virus RNA Qual PCR NEGATIVE (Negative); SARS COV2 PCR INHOUSE NEGATIVE (Negative)
[2022-11-16 19:54] LABS: Venous Blood Gas Refer to POC result
[2022-11-16] MEDS: Azithromycin 500 MG in 0.9 % Sodium Chloride 250 ML 125 MG IV (20:10)
[2022-11-16 20:36] LABS: Appearance Urine Turbid; Color Urine Orange; Glucose Urine UA Negative (Negative); Leukocyte Esterase Urine Moderate (2+) (Negative); Nitrite Urine Positive (Negative); UMIC TRIGGER UACC YES; Urine Blood Large (3+) (Negative); Urine Ketones Negative (Negative); Urine Protein 100 (2+) mg/dL (Neg-Trace)
--- NOTE | 2022-11-16 20:37 | PM.IMHP ---
History of Present Illness Date of Service: 11/16/22 Attending physician on admission: Neelima Quiroga Chief Complaint: AMS, hypoxia Pt is a 72-year-old female with a PMH significant for?PAD, PE, DVT, HTN, hypothyroidism, chronic pain syndrome, chronic pressure ulcers, alcohol use disorder, and opioid dependence who presents to the ED from SNF for evaluation of altered mental status, fever of 102 degrees, and hypoxia. Patient is currently alert and oriented to person and place, but not to time or situation. Patient's us incapable of providing accurate HPI which is stat obtained from chart and provider review. Patient is a resident of [facility] and [facility], and staff there found patient to be confused and satting in low 80s on RA this morning. Patient is normally alert and oriented to person, place, and time and is not on home O2. Patient's only complaint is ?my butt hurts?. Patient otherwise states ?I am getting along alright. In the ED patient was febrile at 01:01 0.6, tachycardic up to 108, normotensive, and satting at 83% on 5 L NC. Labs were significant for lactic acid of 2.4 and albumin 2.7, otherwise largely unremarkable. No leukocytosis. Stable H&H. Electrolytes WNL. Renal function baseline, hepatic function baseline. UA positive for UTI. Patient tested negative for influenza type a and B, RSV, and COVID. CXR limited by severe kyphosis and left dextroscoliosis of thoracolumbar spine, but showed developed opacification over the right lung base suggestive of infiltrate or atelectasis; also found sub pulmonic pleural effusions. Pt was treated with IVF, ceftriaxone, azithromycin, DuoNebs, and acetaminophen. Pt will be admitted to the hospital for sepsis and acute hypoxic respiratory failure in the setting of pneumonia. Review of Systems Review of Systems: Unable to obtain due to patient's mentation [facility] Medical History Dilated cbd, acquired Bacteremia Metabolic encephalopathy Brief psychotic disorder Acute respiratory failure with hypoxia COVID-19 Other chronic pain Unsteadiness on feet Other abnormalities of gait and mobility Personal history of other venous thrombosis and embolism Anemia in other chronic diseases classified elsewhere Alcohol abuse, uncomplicated Opioid dependence, in remission Localized edema Non-pressure chronic ulcer of right calf with unspecified severity Cellulitis of unspecified part of limb Falls Alcoholism Pulmonary embolus Opiate dependence Social History Household Members: Other Household Members Other:: SNF Housing: [facility] Do you presently have visiting nurse or other home services: No Unable to assess alcohol history related to: Unable to respond and Unknown Alcohol intake: never Patient Tobacco Use Status: Never used Tobacco Tobacco use type: Cigarette Smoked in Last 30 Days: No Use of substances other than those prescribed or required for medical reasons: No Advance Directives: Yes Advance Directives on File: Yes Advance Directives Date on File: 03/14/21 service: No Current occupational status: retired Meds Allergies Allergy/AdvReac Type Severity Reaction Status Date / Time shellfish derived Allergy Unknown Verified 05/17/22 15:25 strawberry Allergy Unknown Verified 05/17/22 15:25 Sulfa (Sulfonamide Allergy Unknown Verified 05/17/22 15:25 Antibiotics) Active Medications: Current Medications Acetaminophen (Acetaminophen 325 Mg Tablet) 650 mg PO Q6H PRN PRN Reason: Pain, Mild (Pain Scale 1-3) Acetaminophen (Acetaminophen Supp 650 Mg Supp.Rect) 650 mg MO Q6H PRN PRN Reason: Pain, Mild (Pain Scale 1-3) Azithromycin 500 mg/ Sodium (Chloride) 250 mls @ 125 mls/hr IV Q24H CHASE Ceftriaxone Sodium 1 gm/ (Sodium Chloride) 50 mls @ 100 mls/hr IV Q24H CHASE Melatonin (Melatonin 3 Mg Tablet) 6 mg PO BEDTIME PRN PRN Reason: Insomnia Ondansetron HCl (Ondansetron Hcl 4 Mg/2 Ml Vial) 4 mg IVPUSH Q8H PRN PRN Reason: Nausea and Vomiting Sodium Chloride (0.9 % Sodium Chloride Flush 3 Ml Syringe) 3 ml IVFLUSH QSHIFT [facility] Home Medications Medication Instructions Recorded Confirmed Last Taken Type albuterol sulfate 90 mcg/actuation 2 puff inhalation Q4H PRN copd 01/30/21 12/07/21 Unknown History aerosol inhaler aluminum-mag hydroxide-simethicone 30 ml PO Q4H PRN GERD 01/30/21 12/07/21 Unknown History 200 mg-200 mg-20 mg/5 mL oral susp apixaban 5 mg tablet 5 mg PO BID 01/30/21 12/07/2122 History buspirone 5 mg tablet 5 mg PO TID 01/30/21 12/07/21 07/23/21 History duloxetine 60 mg capsule,delayed 60 mg PO DAILY 01/30/21 12/07/21 07/23/21 History release gabapentin 100 mg capsule 100 mg PO TID 01/30/21 12/07/21 07/23/21 History levothyroxine 50 mcg tablet 50 mcg PO DAILY@0600 01/30/21 12/07/21 07/23/21 History methadone 10 mg tablet 10 mg PO TID chronic pain 01/30/21 12/07/21 07/23/21 History tiotropium bromide 2.5 2 puff inhalation DAILY 01/30/21 12/07/21 07/23/21 History mcg/actuation mist for inhalation (Spiriva Respimat) gabapentin 400 mg capsule 400 mg PO TID 06/25/21 12/07/21 07/23/21 History ondansetron HCl 4 mg tablet 4 mg PO Q8H PRN Nausea And Vomiting 07/23/21 12/07/21 Unknown History lisinopril 2.5 mg tablet 2.5 mg PO DAILY 10/15/21 12/07/21 Unknown History tramadol 50 mg tablet 50 mg PO Q8H PRN Pain 10/15/21 12/07/21 Unknown History acetaminophen 325 mg tablet 650 mg PO Q6H PRN Pain 12/07/21 12/07/21 Unknown History bisacodyl 10 mg rectal suppository 10 mg MO DAILY PRN Constipation 12/07/21 12/07/21 Unknown History lidocaine 4 %-menthol 1 % topical 1 patch topical DAILY 12/07/21 12/07/21 Unknown History patch (AsperFlex Max) magnesium hydroxide 400 mg/5 mL 400 mg PO DAILY PRN Constipation 12/07/21 12/07/21 Unknown History oral suspension (Milk of Magnesia) naloxone 0.4 mg/mL injection 0.4 mg subcut Q2M PRN Opioid 12/07/21 12/07/21 Unknown History solution Overdose polyethylene glycol 3350 17 gram 17 g PO DAILY 12/07/21 12/07/21 Unknown History oral powder packet (Miralax) risperidone 0.25 mg tablet 0.25 mg PO BID 12/07/21 12/07/21 Unknown History risperidone 0.5 mg tablet 0.5 mg PO BID 03/27/22 Unknown History Physical Exam Vital Signs and Narrative: Vital Signs: Last Vital Signs Temp 98.4 F 11/16/22 20:10 Pulse 95 11/16/22 20:15 Resp 18 11/16/22 20:15 BP 111/72 11/16/22 20:15 Pulse Ox 97 11/16/22 20:15 O2 Del Method Oxymask 11/16/22 20:15 O2 Flow Rate 8 11/16/22 20:15 Oxygen Flow Rate 15 11/16/22 19:20 BMI result Body Mass Index 17.8 Constitutional: Alert, pleasantly confused, disheveled, cachectic, in no acute distress. Mental Status: Oriented to person and place, but not to time or situation. Eyes: Pupils are equal, round, and reactive to light. Ear, Nose, and Throat: Oropharynx clear, mucous membranes moist. Ears and nose without deformities. Trachea midline. Respiratory: Diminished lung sounds bilaterally.. Cardiovascular: S1, S2 regular. No murmurs, rubs, or gallops. Gastrointestinal: Abdomen soft, non-tender, non-distended. Normal bowel sounds. Neurologic: Cranial nerves II-XII are grossly intact bilaterally. No focal neurological deficits. Moves all extremities spontaneously. Skin: Stage II sacral decubitus ulcers, as pictured below. Musculoskeletal: No cyanosis or clubbing. Extremities: No edema. Results Labs 11/16/22 18:55 11/16/22 18:55 Labs: Laboratory Results - last 24 hr 11/16/22 11/16/22 11/16/22 18:36 18:55 19:07 MCV 96.3 MCH 31.0 MCHC 32.2 RDW 14.6 Plt Count 181 MPV 9.9 Immature Gran % (Auto) 0.3 Neut % (Auto) 76.7 H Lymph % (Auto) 11.9 L [place] % (Auto) 8.8 Eos % (Auto) 1.9 Baso % (Auto) 0.4 Lymph # (Auto) 1.1 L [place] # (Auto) 0.8 Eos # (Auto) 0.2 Baso # (Auto) 0.0 Abs Immat Gran (auto) 0.03 Absolute Neuts (auto) 6.9 Absolute Nucleated RBC 0.000 Nucleated RBC % (auto) 0.0 PT 23.7 H INR 1.9 H APTT 42.1 H VBG pH 7.39 VBG pCO2 54 VBG pO2 77 VBG HCO3 33 H VBG O2 Saturation 94.0 VBG Base Excess 6.6 Anion Gap 12 Estim Creat Clear Calc 59.8 Estimated GFR > 60 POC Glucose 149 H Random Glucose 158 H Lactic Acid 2.4 H* Calcium 8.4 Total Bilirubin 0.8 AST 13 ALT 13 Alkaline Phosphatase 91 Total Protein 5.4 L Albumin 2.7 L Lipase < 4 L Urine Color Urine Appearance Urine pH Ur Specific [place] Urine Protein Urine Glucose (UA) Urine Ketones Urine Blood Urine Nitrite Ur Leukocyte Esterase Influenza Type A (PCR) NEGATIVE Influenza Type B (PCR) NEGATIVE RSV RNA Qual (PCR) NEGATIVE SARS-CoV-2 RNA (RT-PCR) NEGATIVE 11/16/22 20:16 MCV MCH MCHC RDW Plt Count MPV Immature Gran % (Auto) Neut % (Auto) Lymph % (Auto) [place] % (Auto) Eos % (Auto) Baso % (Auto) Lymph # (Auto) [place] # (Auto) Eos # (Auto) Baso # (Auto) Abs Immat Gran (auto) Absolute Neuts (auto) Absolute Nucleated RBC Nucleated RBC % (auto) PT INR APTT VBG pH VBG pCO2 VBG pO2 VBG HCO3 VBG O2 Saturation VBG Base Excess Anion Gap Estim Creat Clear Calc Estimated GFR POC Glucose Random Glucose Lactic Acid Calcium Total Bilirubin AST ALT Alkaline Phosphatase Total Protein Albumin Lipase Urine Color [place] A Urine Appearance Turbid Urine pH 6.0 Ur Specific [place] 1.020 Urine Protein 100 (2+) H Urine Glucose (UA) Negative Urine Ketones Negative Urine Blood Large (3+) H Urine Nitrite Positive H Ur Leukocyte Esterase Moderate (2+) H Influenza Type A (PCR) Influenza Type B (PCR) RSV RNA Qual (PCR) SARS-CoV-2 RNA (RT-PCR) Imaging Radiologist's Impressions: Impressions Chest X-Ray 11/16/22 19:32 IMPRESSION: * Developed opacification over the right lung base obscuring the right hemidiaphragm suggesting infiltrate or atelectasis. * Subpulmonic pleural effusions. * Cardiac silhouette is enlarged. * Exam limited by severe kyphosis and left dextroscoliosis of thoracolumbar spine. Assessment and Plan (1) Acute respiratory failure with hypoxia: Status: Acute (2) Sepsis: Qualifiers: Sepsis type: sepsis due to unspecified organism Sepsis acute organ dysfunction status: without acute organ dysfunction Qualified Code(s): A41.9 - Sepsis, unspecified organism Status: Acute (3) Pneumonia: Qualifiers: Laterality: right Lung location: lower lobe of lung Pneumonia type: due to unspecified organism Qualified Code(s): J18.9 - Pneumonia, unspecified organism Status: Acute Plan Pt is a 72-year-old female with a PMH significant for?PAD, PE, DVT, HTN, hypothyroidism, chronic pain syndrome, chronic pressure ulcers, alcohol use disorder, and opioid dependence who presents to the ED from SNF for evaluation of altered mental status, fever of 102 degrees, and hypoxia. Pt will be admitted to the hospital for sepsis and acute hypoxic respiratory failure in the setting of pneumonia. Acute hypoxic respiratory failure in the setting of pneumonia Patient satting in the low 80s on RA, not on home O2 CXR suggestive right lung base infiltrate or atelectasis Patient meets sepsis criteria: Pneumonia, fever, tachycardia, lactic acidosis of 2.4 Patient received IVF and IV antibiotics in ED Will continue ceftriaxone, azithromycin, started 11/16/2022 Titrate supplemental oxygen >92, wean as tolerated Monitor respiratory status Follow cultures Acute toxic metabolic encephalopathy in the setting of pneumonia Patient currently alert and oriented to person and place, not to time or situation Patient apparently alert and oriented x4 at baseline, though with some short-term memory impairment Patient will be kept NPO for now Swallow and/or speech evaluation in the morning SNF documentation indicate patient is on thin liquids, regular diet with dysphagia texture Treat as above Monitor mentation Sacral decubitus ulcers, stage II Patient positioning q2hr Wound care nurse consult Hx of PE Continue Eliquis HTN Continue home meds Hypothyroidism Continue levothyroxine Full Code Attending:?Dr. Quiroga DVT Prophylaxis: On Eliquis Pt will require a hospitalization of at least two nights for treatment of?acute toxic metabolic encephalopathy and acute hypoxic respiratory failure in setting pneumonia with IV antibiotics and close monitoring. Time Spent With Patient Time: Total time managing care of this patient today ____ minutes. Quality Stroke Does the patient have a stroke diagnosis?: No VTE Prior VTE?: Yes VTE Risk Level:: Medical - moderate - high VTE Device Contraindication: Treatment Not Indicated VTE Drug Contraindication: N/A - Med Ordered
[2022-11-16 20:38] LABS: Bacteria Urine 4+ (None Seen); RBC Urine >20 /HPF (0-2); UACC Culture Trigger YES; WBC Urine 21-50 /HPF (0-5)
[2022-11-16 21:01] LABS: Reflex Lactate? Lactic Acid Added
[2022-11-16 21:29] LABS: ~Lactic Acid-LAB USE ONLY 4.2 mmol/L (0.5-2.0)
[2022-11-16] MEDS: Lactated Ringers 1,000 ML 999 ML IV (21:42)
[2022-11-16] MEDS: Metoclopramide HCl Oral Soln 10 MG/10 ML SOLUTION PO (21:51)
[2022-11-16 23:12] LABS: Reflex Lactate? 2 Y
[2022-11-16 23:53] LABS: ~Lactic Acid-LAB USE ONLY 5.4 mmol/L (0.5-2.0)
[2022-11-17] MEDS: 0.9 % Sodium Chloride 1,000 ML 999 ML IV (00:28)
[2022-11-17] MEDS: 0.9 % Sodium Chloride Flush 3 ML SYRINGE IVFLUSH ×3 (00:28→15:15)
--- NOTE | 2022-11-17 08:31 | PC.NURSE ---
pt a&ox3, vss and up to date. 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 pt c/o no pain tiffanie. pt displays no SOB/WOB at this time. respirations even and unlabored. pt able to speak in full, clear sentences w/o difficulty. crackles noted upon auscultation throughout. tech currently searching for bedside commode so pt can use it at her convenience. pt resting comfortably and in no apparent distress. call ayala placed within reach.
[2022-11-17 08:32] VITALS: BP 128/85; PULSE 81; RESP 16; TEMP 37.1; O2SAT 97
--- NOTE | 2022-11-17 08:55 | PC.NURSE ---
pt ambulated to bedside commode w/ steady gait. pt cleaned up and changed into fresh linen. stage 2 blanchable pressure ulcer noted right above coccyx. admitting provider notified/aware/sent picture via [employer].
--- NOTE | 2022-11-17 08:55 | MHC.EDTECH ---
Patient requesting to use commode; t/w helped Pt out of bed and noticed Pts underpad and entire sheet were wet with urine. Pt pivoted to commode without any issues. Complete bedding change done. Pt cleaned up and repositioned back into bed. Call ayala within reach.
--- NOTE | 2022-11-17 09:15 | PHA.MEDREC ---
Pharmacy Consult ? Medication Reconciliation Pharmacy has completed the medication reconciliation. Patient with list from [facility]
[2022-11-17 09:58] LABS: Alanine Aminotransferase 12 U/L (0-31); Albumin Level 2.5 g/dL (3.5-5.0); Alkaline Phosphatase 78 U/L (39-117); Anion Gap 12 (12-20); Aspartate Amino Transferase 14 U/L (5-31); Bilirubin Total 0.6 mg/dL (0.0-1.0); Blood Urea Nitrogen 12 mg/dL (9-16); Calcium 8.1 mg/dL (8.4-10.2); Carbon Dioxide 23 mmol/L (22-29); Chloride 111 mmol/L (96-108); Creatinine Clr Calc Pharmacy 76.5; Estimated Glomerular Filt Rate > 60; Glucose Random 84 mg/dL (60-115); Potassium 3.3 mmol/L (3.3-5.1); Sodium 143 mmol/L (135-145); Total Protein 5.1 g/dL (6.5-8.0)
[2022-11-17 10:04] VITALS: BP 151/88; PULSE 79; RESP 12; TEMP 36.8; O2SAT 97
[2022-11-17 10:11] LABS: Lactic Acid 2.2 mmol/L (0.5-2.0)
[2022-11-17 11:30] LABS: Reflex Lactate? Lactic Acid Added
[2022-11-17 13:14] LABS: ~Lactic Acid-LAB USE ONLY 1.3 mmol/L (0.5-2.0)
--- NOTE | 2022-11-17 14:15 | HO.PM.IMPN ---
Subjective Subjective Date of Service: 11/17/22 Review of Systems Follow-up pneumonia, UTI Denies nausea, vomiting, diarrhea No chest pain or shortness of breath Physical Exam Vital Signs: Vital Signs: Last Vital Signs Temp 98.3 F 11/17/22 10:04 Pulse 79 11/17/22 10:04 Resp 12 11/17/22 10:04 BP 151/88 H 11/17/22 10:04 Pulse Ox 97 11/17/22 10:04 O2 Del Method Oxymask 11/17/22 10:04 O2 Flow Rate 8 11/17/22 10:04 Oxygen Flow Rate 15 11/16/22 19:20 BMI result Body Mass Index 17.8 Appearing in no acute distress lung sounds are clear to auscultation heart regular rate rhythm, clear S1, S2 positive bowel sounds, abdomen is soft, nontender neuro patient is alert x3, no focal deficits Objective Data Active Medications Acetaminophen (Acetaminophen 325 Mg Tablet) 650 mg PO Q6H PRN PRN Reason: Pain, Mild (Pain Scale 1-3) Acetaminophen (Acetaminophen Supp 650 Mg Supp.Rect) 650 mg [place] Q6H PRN PRN Reason: Pain, Mild (Pain Scale 1-3) Azithromycin 500 mg/ Sodium (Chloride) 250 mls @ 125 mls/hr IV Q24H CHASE Ceftriaxone Sodium 1 gm/ (Sodium Chloride) 50 mls @ 100 mls/hr IV Q24H [facility] Melatonin (Melatonin 3 Mg Tablet) 6 mg PO BEDTIME PRN PRN Reason: Insomnia Ondansetron HCl (Ondansetron Hcl 4 Mg/2 Ml Vial) 4 mg IVPUSH Q8H PRN PRN Reason: Nausea and Vomiting Sodium Chloride (0.9 % Sodium Chloride Flush 3 Ml Syringe) 3 ml IVFLUSH QSHIFT [facility] Last Admin: 11/17/22 08:04 Dose: 3 ml Documented By: DANILO Labs 11/16/22 18:55 11/17/22 09:21 Labs: Laboratory Results - last 24 hr 11/16/22 11/16/22 11/16/22 18:36 18:55 19:07 MCV 96.3 MCH 31.0 MCHC 32.2 RDW 14.6 Plt Count 181 MPV 9.9 Immature Gran % (Auto) 0.3 Neut % (Auto) 76.7 H Lymph % (Auto) 11.9 L [place] % (Auto) 8.8 Eos % (Auto) 1.9 Baso % (Auto) 0.4 Lymph # (Auto) 1.1 L [place] # (Auto) 0.8 Eos # (Auto) 0.2 Baso # (Auto) 0.0 Abs Immat Gran (auto) 0.03 Absolute Neuts (auto) 6.9 Absolute Nucleated RBC 0.000 Nucleated RBC % (auto) 0.0 Hold Purple Top PT 23.7 H INR 1.9 H APTT 42.1 H VBG pH 7.39 VBG pCO2 54 VBG pO2 77 VBG HCO3 33 H VBG O2 Saturation 94.0 VBG Base Excess 6.6 Anion Gap 12 Estim Creat Clear Calc 59.8 Estimated GFR > 60 POC Glucose 149 H Random Glucose 158 H Lactic Acid 2.4 H* Lactic Acid F/U @ 2Hr Lactic Acid F/U @ 4Hr Calcium 8.4 Total Bilirubin 0.8 AST 13 ALT 13 Alkaline Phosphatase 91 Total Protein 5.4 L Albumin 2.7 L Lipase < 4 L Urine Color Urine Appearance Urine pH Ur Specific [place] Urine Protein Urine Glucose (UA) Urine Ketones Urine Blood Urine Nitrite Ur Leukocyte Esterase Urine RBC Urine WBC Ur Squamous Epith Cells Urine Bacteria Hyaline Casts Influenza Type A (PCR) NEGATIVE Influenza Type B (PCR) NEGATIVE RSV RNA Qual (PCR) NEGATIVE SARS-CoV-2 RNA (RT-PCR) NEGATIVE 11/16/22 11/16/22 11/16/22 20:16 21:02 23:25 MCV MCH MCHC RDW Plt Count MPV Immature Gran % (Auto) Neut % (Auto) Lymph % (Auto) [place] % (Auto) Eos % (Auto) Baso % (Auto) Lymph # (Auto) [place] # (Auto) Eos # (Auto) Baso # (Auto) Abs Immat Gran (auto) Absolute Neuts (auto) Absolute Nucleated RBC Nucleated RBC % (auto) Hold Purple Top PT INR APTT VBG pH VBG pCO2 VBG pO2 VBG HCO3 VBG O2 Saturation VBG Base Excess Anion Gap Estim Creat Clear Calc Estimated GFR POC Glucose Random Glucose Lactic Acid Lactic Acid F/U @ 2Hr 4.2 H* Lactic Acid F/U @ 4Hr 5.4 H* Calcium Total Bilirubin AST ALT Alkaline Phosphatase Total Protein Albumin Lipase Urine Color [place] A Urine Appearance Turbid Urine pH 6.0 Ur Specific [place] 1.020 Urine Protein 100 (2+) H Urine Glucose (UA) Negative Urine Ketones Negative Urine Blood Large (3+) H Urine Nitrite Positive H Ur Leukocyte Esterase Moderate (2+) H Urine RBC >20 H Urine WBC 21-50 H Ur Squamous Epith Cells 11-20 Urine Bacteria 4+ Hyaline Casts 6-10 Influenza Type A (PCR) Influenza Type B (PCR) RSV RNA Qual (PCR) SARS-CoV-2 RNA (RT-PCR) 11/17/22 11/17/22 09:21 12:50 MCV MCH MCHC RDW Plt Count MPV Immature Gran % (Auto) Neut % (Auto) Lymph % (Auto) [place] % (Auto) Eos % (Auto) Baso % (Auto) Lymph # (Auto) [place] # (Auto) Eos # (Auto) Baso # (Auto) Abs Immat Gran (auto) Absolute Neuts (auto) Absolute Nucleated RBC Nucleated RBC % (auto) Hold Purple Top SEE NOTE PT INR APTT VBG pH VBG pCO2 VBG pO2 VBG HCO3 VBG O2 Saturation VBG Base Excess Anion Gap 12 Estim Creat Clear Calc 76.5 Estimated GFR > 60 POC Glucose Random Glucose 84 Lactic Acid 2.2 H* Lactic Acid F/U @ 2Hr 1.3 Lactic Acid F/U @ 4Hr Calcium 8.1 L Total Bilirubin 0.6 AST 14 ALT 12 Alkaline Phosphatase 78 Total Protein 5.1 L Albumin 2.5 L Lipase Urine Color Urine Appearance Urine pH Ur Specific [place] Urine Protein Urine Glucose (UA) Urine Ketones Urine Blood Urine Nitrite Ur Leukocyte Esterase Urine RBC Urine WBC Ur Squamous Epith Cells Urine Bacteria Hyaline Casts Influenza Type A (PCR) Influenza Type B (PCR) RSV RNA Qual (PCR) SARS-CoV-2 RNA (RT-PCR) Microbiology Microbiology Results: Microbiology 11/16/22 Unknown Urine Culture - Preliminary Urine Catheterized - Straight Catheter Gram negative bridget Assessment and Plan (1) Sepsis: Status: Acute (2) Pneumonia: Status: Acute Plan 72-year-old female with a PMH significant for?PAD, PE, DVT, HTN, hypothyroidism, chronic pain syndrome, chronic pressure ulcers, alcohol use disorder, and opioid dependence who presents to the ED from SNF for evaluation of altered mental status, fever of 102 degrees, and hypoxia. Pt will be admitted to the hospital for sepsis and acute hypoxic respiratory failure in the setting of pneumonia. Acute hypoxic respiratory failure in the setting of pneumonia Patient satting in the low 80s on RA, not on home O2 CXR suggestive right lung base infiltrate or atelectasis Patient meets sepsis criteria: Pneumonia, fever, tachycardia, lactic acidosis of 2.4 Patient received IVF and IV antibiotics in ED Will continue ceftriaxone, azithromycin, started 11/16/2022 Titrate supplemental oxygen >92, wean as tolerated Monitor respiratory status Follow cultures GNR UTI continue Rocephin follow final cx Acute toxic metabolic encephalopathy in the setting of pneumonia and UTI Treat as above Monitor mentation Sacral decubitus ulcers, stage II Patient positioning q2hr Wound care nurse consult pending Hx of PE Continue Eliquis HTN Continue home meds Hypothyroidism Continue levothyroxine Full Code Attending:?Dr. Mccallum DVT Prophylaxis: On Eliquis Continue hospitalization for treatment of?acute toxic metabolic encephalopathy and acute hypoxic respiratory failure in setting pneumonia with IV antibiotics and close monitoring. Time Spent With Patient Time: Total time managing care of this patient today ____ minutes. Quality Stroke Does the patient have a stroke diagnosis?: No VTE Prior VTE?: Yes VTE Risk Level:: Medical - moderate - high VTE Device Contraindication: Treatment Not Indicated VTE Drug Contraindication: N/A - Med Ordered
--- NOTE | 2022-11-17 14:26 | PC.NURSE ---
report given to RN on S3 - will notify transport.
--- NOTE | 2022-11-17 14:45 | HO.WOUND ---
Wound Care Consult Reason for consult: stage II sacral decubitus ulcers Patient was on stretcher during consult. Patient resides in a nursing facility where she states she is usually up and moving around with an assistive device. She is not sure when wound developed. Patient has a Stage II pressure injury on her coccyx. Wound was open to air. Scant serous drainage on chux pad. Surrounding skin had some scarring but patient denies to have had any other wounds in this area. Wound bed appearance is large pink tissue. The wound edges we slightly macerated but attached. No undermining or tunneling. No odor. Wound measured 1cm x 0.9cm x 0.1cm. Zinc barrier cream applied to wound and covered with a foam border for protection. Recommendation: May cleanse area with normal saline or sea clense wound cleanser. Apply zinc barrier cream to wound and cover with a foam border daily and PRN if dressing is soiled. Keep skin dry from incontinence. Did discuss with patient the need to offload area while in hospital, switching from side to side and patient was agreeable. Frequent cues may be needed to remind patient to reposition frequently. Unsure of nutritional status but if able increase protein intake for wound healing. If there are any questions or concerns, please feel free and reconsult wound care.
[2022-11-17 14:57] VITALS: PULSE 89; RESP 18; TEMP 36.6; O2SAT 90
[2022-11-17] MEDS: cefTRIAXone sodium 1 GM in 0.9 % Sodium Chloride 50 ML IV (17:54)
[2022-11-17] MEDS: Azithromycin 500 MG in 0.9 % Sodium Chloride 250 ML 125 MG IV (19:12)
[2022-11-17 20:00] VITALS: BP 165/80; PULSE 81; RESP 16; TEMP 36.3; O2SAT 87
[2022-11-17] MEDS: Gabapentin 300 MG CAPSULE PO (20:49)
[2022-11-17] MEDS: Levothyroxine Sodium 50 MCG TABLET PO (20:49)
[2022-11-17] MEDS: Melatonin 3 MG TABLET 6 MG PO (20:49)
[2022-11-17] MEDS: risperiDONE 0.5 MG TABLET PO (20:49)
[2022-11-17] MEDS: busPIRone HCl 5 MG TABLET PO (20:49)
[2022-11-17] MEDS: Apixaban 5 MG TABLET PO (20:49)
--- NOTE | 2022-11-17 21:56 | HO.SKINPHOTO ---
Location: coccyx Category: pressure Stage: II Length: 4 Width: 1 Depth: cm Location: right buttock Category: pressure Stage: II Length: 1 Width: 1 Depth: cm (see above photo) Location: Category: Stage: Length: Width: Depth: cm Location: Category: Stage: Length: Width: Depth: cm Location: Category: Stage: Length: Width: Depth: cm Location: Category: Stage: Length: Width: Depth: cm
[2022-11-17] MEDS: methADONE HCl 10 MG TABLET PO (22:09)
[2022-11-18] MEDS: 0.9 % Sodium Chloride Flush 3 ML SYRINGE IVFLUSH ×2 (00:04→08:16)
[2022-11-18 00:10] VITALS: O2SAT 97
[2022-11-18 04:00] VITALS: BP 160/80; PULSE 62; RESP 18; TEMP 36.1; O2SAT 96
[2022-11-18 07:24] VITALS: BP 123/74; PULSE 73; RESP 18; TEMP 36; O2SAT 93
[2022-11-18] MEDS: busPIRone HCl 5 MG TABLET PO ×2 (08:15→14:50)
[2022-11-18] MEDS: lisinopriL 5 MG TABLET PO (08:15)
[2022-11-18] MEDS: risperiDONE 0.5 MG TABLET PO (08:15)
[2022-11-18] MEDS: Gabapentin 300 MG CAPSULE PO ×2 (08:15→14:50)
[2022-11-18] MEDS: DULoxetine HCl 60 MG CAPSULE.DR PO (08:15)
[2022-11-18] MEDS: methADONE HCl 10 MG TABLET PO ×2 (08:15→14:50)
[2022-11-18] MEDS: Apixaban 5 MG TABLET PO (08:15)
[2022-11-18 11:11] VITALS: BMI 21.2
--- NOTE | 2022-11-18 11:15 | P.PNIM_ITS ---
Subjective Subjective Date of Service: 11/18/22 Review of Systems Follow-up pneumonia, UTI Denies nausea, vomiting, diarrhea No chest pain or shortness of breath Physical Exam 2 Vital Signs: Vital Signs: Last Vital Signs Temp 96.8 F 11/18/22 07:24 Pulse 73 11/18/22 07:24 Resp 18 11/18/22 07:24 BP 123/74 11/18/22 07:24 Pulse Ox 93 11/18/22 07:24 O2 Del Method Nasal Cannula 11/18/22 07:24 O2 Flow Rate 8 11/18/22 07:24 Oxygen Flow Rate 15 11/16/22 19:20 BMI result Body Mass Index 17.8 Appearing in no acute distress lung sounds are clear to auscultation heart regular rate rhythm, clear S1, S2 positive bowel sounds, abdomen is soft, nontender neuro patient is alert x3, no focal deficits Objective Data Active Medications Acetaminophen (Acetaminophen 325 Mg Tablet) 650 mg PO Q6H PRN PRN Reason: Pain, Mild (Pain Scale 1-3) Acetaminophen (Acetaminophen Supp 650 Mg Supp.Rect) 650 mg NE Q6H PRN PRN Reason: Pain, Mild (Pain Scale 1-3) Al Hydroxide/Mg Hydroxide (Magnesium Hydrox/Alum Hydrox 30 Ml Oral.Susp) 30 ml PO Q4H PRN PRN Reason: GERD Albuterol Sulfate (Albuterol Sulfate 90 Mcg 8 Gm Inhaler) 2 puff INHALE Q4H PRN PRN Reason: copd Apixaban (Apixaban 5 Mg Tablet) 5 mg PO BID [facility] Last Admin: 11/18/22 08:15 Dose: 5 mg Documented By: ANDRY Bisacodyl (Bisacodyl 10 Mg Supp.Rect) 10 mg NE DAILY PRN PRN Reason: Constipation Buspirone HCl (Buspirone Hcl 5 Mg Tablet) 5 mg PO TID [facility] Last Admin: 11/18/22 08:15 Dose: 5 mg Documented By: ANDRY Duloxetine HCl (Duloxetine Hcl 60 Mg Capsule.) 60 mg PO DAILY [facility] Last Admin: 11/18/22 08:15 Dose: 60 mg Documented By: ANDRY Gabapentin (Gabapentin 300 Mg Capsule) 300 mg PO TID [facility] Last Admin: 11/18/22 08:15 Dose: 300 mg Documented By: ANDRY Azithromycin 500 mg/ Sodium (Chloride) 250 mls @ 125 mls/hr IV Q24H [facility] Last Infusion: 11/17/22 21:18 Dose: Infused Documented By: SERGEI Ceftriaxone Sodium 1 gm/ (Sodium Chloride) 50 mls @ 100 mls/hr IV Q24H [facility] Last Infusion: 11/17/22 19:18 Dose: Infused Documented By: SERGEI Levothyroxine Sodium (Levothyroxine Sodium 50 Mcg Tablet) 50 mcg PO BEDTIME [facility] Last Admin: 11/17/22 20:49 Dose: 50 mcg Documented By: SERGEI Lisinopril (Lisinopril 5 Mg Tablet) 5 mg PO DAILY [facility]; Protocol Last Admin: 11/18/22 08:15 Dose: 5 mg Documented By: ANDRY Magnesium Hydroxide (Milk Of Magnesia 30 Ml Oral.Susp) 5 ml PO DAILY PRN PRN Reason: Constipation Melatonin (Melatonin 3 Mg Tablet) 6 mg PO BEDTIME PRN PRN Reason: Insomnia Last Admin: 11/17/22 20:49 Dose: 6 mg Documented By: SERGEI Methadone HCl (Methadone Hcl 10 Mg Tablet) 10 mg PO TID [facility] Last Admin: 11/18/22 08:15 Dose: 10 mg Documented By: ANDRY Naloxone HCl (Naloxone Hcl 0.4 Mg/Ml Vial) 0.4 mg SUBCUT Q2M PRN PRN Reason: Opioid Overdose Ondansetron HCl (Ondansetron Hcl 4 Mg/2 Ml Vial) 4 mg IVPUSH Q8H PRN PRN Reason: Nausea and Vomiting Polyethylene Glycol (Polyethylene Glycol 3350 17 Gm Powd.Pack) 17 gm PO DAILY [facility] Last Admin: 11/18/22 08:19 Dose: Not Given Documented By: ANDRY Non-Admin Reason: Patient Refused Risperidone (Risperidone 0.5 Mg Tablet) 0.5 mg PO BID [facility] Last Admin: 11/18/22 08:15 Dose: 0.5 mg Documented By: ANDRY Sodium Chloride (0.9 % Sodium Chloride Flush 3 Ml Syringe) 3 ml IVFLUSH QSHIFT [facility] Last Admin: 11/18/22 08:16 Dose: 3 ml Documented By: ANDRY Tramadol HCl (Tramadol Hcl 50 Mg Tablet) 25 mg PO Q8H PRN PRN Reason: Pain, Moderate(Pain Scale 4-6) Labs 11/16/22 18:55 11/17/22 09:21 Labs: Laboratory Results - last 24 hr 11/17/22 12:50 Lactic Acid F/U @ 2Hr 1.3 Microbiology Microbiology Results: Microbiology 11/16/22 Unknown Urine Culture - Final Urine Catheterized - Straight Catheter Escherichia coli 11/16/22 19:00 Blood Culture - Preliminary Blood - Venous No growth after 24 hours. 11/16/22 18:55 Blood Culture - Preliminary Blood - Venous No growth after 24 hours. Assessment and Plan (1) Sepsis: Status: Acute (2) Pneumonia: Status: Acute Plan 72-year-old female with a PMH significant for?PAD, PE, DVT, HTN, hypothyroidism, chronic pain syndrome, chronic pressure ulcers, alcohol use disorder, and opioid dependence who presents to the ED from SNF for evaluation of altered mental status, fever of 102 degrees, and hypoxia. Pt will be admitted to the hospital for sepsis and acute hypoxic respiratory failure in the setting of pneumonia. Acute hypoxic respiratory failure in the setting of pneumonia CXR suggestive right lung base infiltrate or atelectasis Patient meets sepsis criteria: Pneumonia, fever, tachycardia, lactic acidosis of 2.4 Patient received IVF and IV antibiotics in ED continue ceftriaxone, azithromycin, started 11/16/2022 Titrate supplemental oxygen >92, wean as tolerated Monitor respiratory status Follow cultures ecoli UTI continue Rocephin follow final cx Acute toxic metabolic encephalopathy in the setting of pneumonia and UTI Treat as above Monitor mentation Sacral decubitus ulcers, stage II Patient positioning q2hr Wound care nurse consult pending Hx of PE Continue Eliquis HTN Continue home meds Hypothyroidism Continue levothyroxine Full Code Attending:?Dr. Mccallum DVT Prophylaxis: On Eliquis DISPO PT consult Continue hospitalization for treatment of?acute toxic metabolic encephalopathy and acute hypoxic respiratory failure in setting pneumonia with IV antibiotics and close monitoring. Time Spent With Patient Time: Total time managing care of this patient today ____ minutes. Quality Stroke Does the patient have a stroke diagnosis?: No VTE Prior VTE?: Yes VTE Risk Level:: Medical - moderate - high VTE Device Contraindication: Treatment Not Indicated VTE Drug Contraindication: N/A - Med Ordered
--- NOTE | 2022-11-18 11:18 | MHC.CLN ---
CONSULT PT WITH INCREASED NUTRITION RISK R/T PRESSURE INJURY RE-WEIGHED PT AT BEDSIDE 56.1KG TODAY; BMI ADJUSTED TO 21 PT REPORTS UBW 120#-WNL IBW RANGE DIET RX: 2GM NA-WILL LIBERALIZE TO INCREASE PO AND PROMOTE VARIETY PT DISLIKES ENSURE SUPPLEMENTS PT WILLING TO TRIAL MAGIC CUP AND GELATEIN TO INCREASE KCALS PLAN: CHANGE DIET TO REGULAR WILL ADD MAGIC CUP AND GELATEIN TO MEALS MONITOR PO INTAKE CLOSELY SEE ALSO FULL CLINICAL NUTRITION ASSESSMENT
--- NOTE | 2022-11-18 12:08 | MHC.CM.PN ---
Addendum entered by Chelsi Qiu RN 11/18/22 15:08: DP: PT MEDICALLY CLEARED FOR DC. WILL TRANSFER BACK TO [facility]TC AT [facility], BLS TRANSPORT BOOKED FOR 5PM VIA [place]. LM FOR HCP TO UPDATE, AWAITING RESPONSE. CENTER UPDATED AND DC SUMMARY SENT. RN AWARE. Original Note: IMM ADDRESSED WITH HCP [facility]IGUE/[facility]STER VIA TELEPHONE, WHITE COPY WILL BE MAILED. PT IS A LTC RESIDENT AT [facility]. REQUIRES ASSISTANCE WITH ADL'S. +HCP AND MOLST ON FILE. DP: PLAN TO RETURN TO [facility] VIA BLS TRANSPORT. RETURN REFERRAL SENT. NOT CLEARED FOR DC AT THIS TIME. CM WILL FOLLOW.
--- NOTE | 2022-11-18 12:45 | P.CDIM_ITS ---
PROVIDER RESPONSE TEXT: To clarify, the appropriate diagnosis supported by the clinical indicators: Acute lactic acidosis QUERY TEXT: PHYSICIAN'S DOCUMENTATION REQUEST Date of Query: 11/18/2022 07:57 AM EDT Patient Name: Edilia Patel Admit Date: 11/17/2022 Dear Yen Bey, A review of the medical record indicates additional documentation may be needed. Please review below and update the documentation accordingly. Clinical Indicators: H&P: lactic acidosis 2.4 LABS: LA 2.4 4.2 5.4 H Clarify which of the following accurately represents the acuity of the lactic acidosis: Possible options might include: Acute lactic acidosis Other please specify Other (explain)Clinically unable to determine (explain)Thank you, Tea Castaneda, CCS, CDIS Use of terms such as suspected, likely, concern for, or probable (associated with a specific diagnosi s that is being evaluated, monitored, or treated as if it exists) are acceptable and can be coded in the inpatient se tting, when documented at the time of discharge. Please use your independent medical judgment in providing your response. THIS QUERY IS PART OF THE PERMANENT MEDICAL RECORD
--- NOTE | 2022-11-18 14:38 | P.DS_ITS ---
DS: Providers Provider Date of Service: 11/18/22 Date of admission: 11/16/22 20:15 Primary care physician: Av Milan MD DS: Diagnosis Discharge Diagnosis (1) Sepsis: Status: Acute (2) Pneumonia: Status: Acute DS: Summary Hospital Course Hospital Course: HP as per admitting provider Pt is a 72-year-old female with a PMH significant for?PAD, PE, DVT, HTN, hypothyroidism, chronic pain syndrome, chronic pressure ulcers, alcohol use disorder, and opioid dependence who presents to the ED from SNF for evaluation of altered mental status, fever of 102 degrees, and hypoxia. Patient is currently alert and oriented to person and place, but not to time or situation. Patient's us incapable of providing accurate HPI which is stat obtained from chart and provider review. Patient is a resident of [facility], and staff there found patient to be confused and satting in low 80s on RA this morning. Patient is normally alert and oriented to person, place, and time and is not on home O2. Patient's only complaint is ?my butt hurts?. Patient otherwise states ?I am getting along alright. In the ED patient was febrile at 01:01 0.6, tachycardic up to 108, normotensive, and satting at 83% on 5 L NC. Labs were significant for lactic acid of 2.4 and albumin 2.7, otherwise largely unremarkable. No leukocytosis. Stable H&H. Electrolytes WNL. Renal function baseline, hepatic function baseli ne. UA positive for UTI. Patient tested negative for influenza type a and B, RSV, and COVID. CXR limited by severe kyphosis and left dextroscoliosis of thoracolumbar spine, but showed developed opacification over the right lung base suggestive of infiltrate or atelectasis; also found sub pulmonic pleural effusions. Pt was treated with IVF, ceftriaxone, azithromycin, DuoNebs, and acetaminophen. Pt will be admitted to the hospital for sepsis and acute hypoxic respiratory failure in the setting of pneumonia. 72 year old women treated for PNA and encephalopathy. CXR showed developed opacification. She was started on Rocephin and azithromcyin. Supplemental oxygen up to 8 liters, now down to 2liters. Patient no longer has sob. She's sitting up and eating dinner. Blood cultures remain negative. Patient also had E coli UTI that was sensitive to Rocephin as well. The [facility] encephalopathy improved with treatment of the UTI and pneumonia. She was turned and repositioned frequently due to sacral decubitus ulcer stage II. At this point patient is safe for discharge back to long-term care facility. Hx of PE. Continue Eliquis HTN. Continue home meds Hypothyroidism. Continue levothyroxine Time Spent with Patient Time attestation: Total time managing care of this patient today ____ minutes. Discharge coordination time: Greater than 30 minutes Quality: Safe Use of Opioids Does Pt have an Active Cancer Diagnosis on the Problem List?: No Quality: Stroke Does the patient have a stroke diagnosis?: No Physical Exam Vital Signs: Vital Signs: Last Vital Signs Temp 96.8 F 11/18/22 07:24 Pulse 73 11/18/22 07:24 Resp 18 11/18/22 07:24 BP 123/74 11/18/22 07:24 Pulse Ox 93 11/18/22 07:24 O2 Del Method Nasal Cannula 11/18/22 07:24 O2 Flow Rate 8 11/18/22 07:24 Oxygen Flow Rate 15 11/16/22 19:20 BMI result Body Mass Index 21.2 Appearing in no acute distress head is normocephalic atraumatic eyes pupils are PERRLA sclera is anicteric mouth throat mucous membranes are intact and moist neck is supple no lymphadenopathy, no JVD noted lung sounds are clear to auscultation heart regular rate rhythm, clear S1, S2 positive bowel sounds, abdomen is soft, nontender neuro patient is alert x3, no focal deficits DS: Data Data Completed and Pending Completed studies during hospitalization [Text1]: Procedures Assistance with Respiratory Ventilation, Less than 24 Consecutive Hours, Continuous Positive Airway Pressure (01/30/21) Excision of Right Foot Subcutaneous Tissue and Fascia, Open Approach (01/30/21) Labs on day of discharge: Preliminary micro results at discharge 11/16/22 19:00 Blood Culture - Preliminary Blood - Venous No growth after 24 hours. 11/16/22 18:55 Blood Culture - Preliminary Blood - Venous No growth after 24 hours. Discharge Plan Discharge Anticipated Discharge Date/Time: 11/18/22 14:34 Patient Disposition: [facility] Discharge Diagnosis: Acute hypoxic respiratory failure Community-acquired pneumonia E coli UTI Acute toxic metabolic encephalopathy Referrals: [facility] [Outside] - 1 Day ([facility]) Av Milan MD [Primary Care Provider] - 1 Week Discharge Medications: New cefuroxime axetil 500 mg tablet 500 mg PO BID Qty: 10 0RF azithromycin 500 mg tablet 500 mg PO DAILY 5 Days Qty: 5 0RF Continued ondansetron HCl 4 mg Tablet 4 mg PO Q8H PRN (Reason: Nausea And Vomiting) buspirone 5 mg Tablet 5 mg PO TID methadone 10 mg Tablet 10 mg PO TID levothyroxine 50 mcg Tablet 50 mcg PO BEDTIME gabapentin 100 mg Capsule 300 mg PO TID Rx Instructions: take with gabapentin 400 mg alum-mag hydroxide-simeth 200-200-20 mg/5 mL Suspension 30 ml PO Q4H PRN (Reason: GERD) albuterol sulfate 90 mcg/actuation Hfa Aerosol Inhaler 2 puff INHALATION Q4H PRN (Reason: copd) duloxetine 60 mg Capsule,Delayed Release(Dr/Ec) 60 mg PO DAILY apixaban 5 mg Tablet 5 mg PO BID acetaminophen 325 mg Tablet 650 mg PO Q6H PRN (Reason: Pain) polyethylene glycol 3350 [Miralax] 17 gram Powder In Packet 17 g PO DAILY naloxone 0.4 mg/mL Solution 0.4 mg SUBCUT Q2M PRN (Reason: Opioid Overdose) Rx Instructions: NTExceed 10 mg total dose/episode magnesium hydroxide [Milk of Magnesia] 400 mg/5 mL Suspension 400 mg PO DAILY PRN (Reason: Constipation) bisacodyl 10 mg Suppository 10 mg SD DAILY PRN (Reason: Constipation) lisinopril 2.5 mg tablet 5 mg PO DAILY tramadol 50 mg tablet 25 mg PO Q8H PRN (Reason: Pain) risperidone 0.5 mg tablet 0.5 mg PO BID Discharge Orders: Discharge Order (Routine); Ordered 11/18/22 Ordered By: Yen Bey Diet: Advance to usual diet Activity on Discharge: As tolerated Stand Alone Forms: Patient Portal Discharge page Care Plan Goals: Complete resolution of symptoms Health Concerns: Follow-up with primary care provider as needed Take all medications as prescribed You will be on 2 L of oxygen via nasal cannula Plan of Treatment: Acute hypoxic respiratory failure Community-acquired pneumonia E coli UTI Acute toxic metabolic encephalopathy Assessment: See discharge summary
[2022-11-18 15:31] VITALS: BP 111/73; PULSE 80; RESP 18; TEMP 36.4; O2SAT 94
== END 2022-11-18 17:47 | DRG 871 ==
LOC: HO.ED 23:08 → HO.EDOVER 23:13 → HO.S3 11-17 13:52
PROVIDERS: Admitting Provider Student in an Organized Health Care Education/Training Program; Emergency Provider Emergency Medicine Emergency Medical Services; PCP Family Medicine; Visit Provider Nurse Practitioner Acute Care
DX: A41.9 Sepsis, unspecified organism (principal); G92.8 Other toxic encephalopathy; J18.9 Pneumonia, unspecified organism; J96.01 Acute respiratory failure with hypoxia; E87.21 Acute metabolic acidosis; F11.20 Opioid dependence, uncomplicated; N39.0 Urinary tract infection, site not specified; J91.8 Pleural effusion in other conditions classified elsewhere; E03.9 Hypothyroidism, unspecified; B96.20 Unspecified Escherichia coli [E. coli] as the cause of diseases classified elsewhere; L89.152 Pressure ulcer of sacral region, stage 2; Z20.822 Contact with and (suspected) exposure to COVID-19; Z86.718 Personal history of other venous thrombosis and embolism; Z86.711 Personal history of pulmonary embolism; Z79.01 Long term (current) use of anticoagulants; Z79.890 Hormone replacement therapy; Z79.899 Other long term (current) drug therapy
CPT/HCPCS: 0241U; 36415; 71045; 80053; 81001; 82803; 82947; 83605; 83690; 85025; 85610; 85730; 87040; 87086; 87088; 87186; 94640; 99285; J0456; J0696

== ENCOUNTER → 2022-11-16 19:14 | Outpatient (BNV) | payer MEDICARE, MEDICAID, SELFPAY | PROVIDERS: Emergency Provider Emergency Medicine Emergency Medical Services; PCP Family Medicine; Visit Provider Student in an Organized Health Care Education/Training Program | DX: A41.9 Sepsis, unspecified organism (principal); J18.9 Pneumonia, unspecified organism | CPT/HCPCS: 99223; 99232; 99239 ==

== ENCOUNTER 2022-11-21 11:13 | Inpatient (IN) | payer MEDICARE, MEDICAID, SELFPAY ==
[2022-11-21] VITALS (8 sets, daily range): BP systolic 139–156; BP diastolic 68–99; PULSE 72–91; RESP 12–18; TEMP 36.3–36.9; O2SAT 80–98; BMI 18.0; BMI 16.8
--- NOTE | ~2022-11-21 | XR_ITS ---
EXAMINATION: XR CHEST CLINICAL INFORMATION: SOB COMPARISON: Chest 11/18/2022 TECHNIQUE: Frontal view of the chest was obtained. FINDINGS: There is bibasilar haziness suggestive pleural effusion with underlying atelectasis. In addition there is patchy opacity seen in bilateral parahilar regions likely infiltrates,/vascular congestion. It is new since last chest x-ray. Heart size is borderline enlarged. Pulmonary vascularity is mildly prominent. No gross bony abnormality. XR/XR chest 1V IMPRESSION: Interval development of bibasilar haziness likely pleural effusion and underlying atelectasis. Prominent bilateral parahilar markings likely infiltrate or vascular congestion. It is new since last study
--- NOTE | ~2022-11-21 | CT_ITS ---
EXAMINATION: CT CHEST WITHOUT CONTRAST CLINICAL INFORMATION: Question pleural effusion versus infiltrate COMPARISON: Previous chest x-ray most recent from earlier the same day. Report from chest CT June 2021 and abdominal MRI September 2021, images not available at this time TECHNIQUE: Multidetector volumetric CT imaging of the chest was done. Axial MIP volume rendering provided. Sagittal and coronal reformatted images were obtained. This CT examination was performed using dose optimization techniques as appropriate, variously including the following: *Automated exposure control *Adjustment of mA and/or kV according to patient size (this includes techniques or standardized protocols for targeted exams where dose is matched to indication/reason for exam; i.e. extremities or head) *Use of iterative reconstruction technique DLP: 211 mGy-cm FINDINGS: LUNGS: There is respiratory motion artifact. There are innumerable groundglass opacities bilateral upper lobes and right middle lobe. There are scattered areas of groundglass attenuation greatest in the left upper lobe. There is denser lingular atelectasis or consolidation. There is dense consolidation of both lower lobes with air bronchograms. No endobronchial or endotracheal lesion MEDIASTINUM: Slightly enlarged heart. Trace pericardial effusion. Mitral annular and moderate coronary artery calcification no enlarged hilar or mediastinal lymph nodes. Normal caliber thoracic aorta. CORONARY ARTERY CALCIFICATION: Mild to moderate PLEURA: Small bilateral pleural effusions AXILLA: Chest wall edema/anasarca. UPPER ABDOMEN: Slightly enlarged gallbladder. Intra and extrahepatic biliary duct dilatation. The common bile duct measures up to 1.2 cm and appears dilated down to the head of the pancreas. This may be similar to previous MR with MRCP September 2021 based on report. Images not available for comparison at this time. There may be a small stone in the upper pole of the right kidney. Pancreas appears atrophic. There are multiple pancreatic calcifications suggestive of chronic pancreatitis. OSSEOUS STRUCTURES: Increased thoracic kyphosis. Scoliosis. T11 and T12 vertebral body compression fractures. Question old fracture of the inferior sternum. CT/CT chest wo IV con IMPRESSION: Bilateral multilobar pneumonitis/pneumonia greatest in both lower lobes. Bilateral nodular opacities probably infectious or inflammatory in origin as well. Small bilateral pleural effusions. Enlarged gallbladder. Mild intrahepatic and extrahepatic biliary duct dilatation. Correlation with liver function tests recommended. Could be better evaluated with CT or ultrasound of the abdomen if clinically indicated. Chronic pancreatitis. Small right renal stone. Scoliosis and kyphosis and T11 and T12 vertebral body compression fractures. Fleischner guidelines were followed.
--- NOTE | ~2022-11-21 | XR_ITS ---
EXAMINATION: XR CHEST CLINICAL INFORMATION: Follow-up pneumonia COMPARISON: Previous chest x-ray and chest CT 11/21/2022 TECHNIQUE: Frontal view of the chest was obtained. FINDINGS: The cardiac and mediastinal contours are stable. The lung volumes are low. There are bilateral multilobar infiltrates, greatest at the lung bases. This may be slightly increased in the left upper lobe. Otherwise this does not appear appreciably changed. Small bilateral pleural effusions unchanged. Degenerative changes of the spine and scoliosis. Old right proximal humerus and right rib fractures. XR/XR chest 1V IMPRESSION: Low lung volumes. Bilateral multilobar infiltrates. This may be slightly increased in the left upper lobe compared to 11/21/2022 exam.
--- NOTE | 2022-11-21 11:28 | ED.GENADULT ---
HPI - General Adult General Chief complaint: Altered Mental Status Stated complaint: Diminished responsiveness, pnem,uti, per ems Time Seen by Provider: 11/21/22 11:28 Source: patient and EMS Mode of arrival: EMS Limitations: other (altered mental status) History of Present Illness HPI narrative: Patient is a 72 year old assigned female at with a history of PAD and recent hospital admission for PNA, UTI, and encephalopathy presenting to the emergency department today with decreased responsiveness and low oxygen saturation. SNF staff states that the patient has continually been declining since returning from the hospital and has required 4L of oxygenation at all times. Onset (ago): day(s) Treatments prior to arrival: none Related Data Home Medications Medication Instructions Recorded Confirmed albuterol sulfate 90 mcg/actuation 2 puff inhalation Q4H PRN copd 01/30/21 11/21/22 aerosol inhaler aluminum-mag hydroxide-simethicone 30 ml PO Q4H PRN GERD 01/30/21 11/21/22 200 mg-200 mg-20 mg/5 mL oral susp apixaban 5 mg tablet 5 mg PO BID 01/30/21 11/21/22 buspirone 5 mg tablet 5 mg PO TID 01/30/21 11/21/22 duloxetine 60 mg capsule,delayed 60 mg PO DAILY 01/30/21 11/21/22 release levothyroxine 50 mcg tablet 50 mcg PO BEDTIME 01/30/21 11/21/22 methadone 10 mg tablet 10 mg PO TID chronic pain 01/30/21 11/21/22 ondansetron HCl 4 mg tablet 4 mg PO Q8H PRN Nausea And Vomiting 07/23/21 11/21/22 lisinopril 2.5 mg tablet 5 mg PO DAILY 10/15/21 11/21/22 tramadol 50 mg tablet 25 mg PO Q8H PRN Pain 10/15/21 11/21/22 acetaminophen 325 mg tablet 650 mg PO Q6H PRN Pain 12/07/21 11/21/22 bisacodyl 10 mg rectal suppository 10 mg DE DAILY PRN Constipation 12/07/21 11/21/22 magnesium hydroxide 400 mg/5 mL 400 mg PO DAILY PRN Constipation 12/07/21 11/21/22 oral suspension (Milk of Magnesia) polyethylene glycol 3350 17 gram 17 g PO DAILY 12/07/21 11/21/22 oral powder packet (Miralax) risperidone 0.5 mg tablet 0.5 mg PO BID 03/27/22 11/21/22 Saccharomyces boulardii 1 mg PO BID 11/21/22 11/21/22 gabapentin 300 mg capsule 300 mg PO TID 11/21/22 11/21/22 tiotropium bromide 2.5 2 puff inhalation DAILY 11/21/22 11/21/22 mcg/actuation mist for inhalation Previous Rx's Medication Instructions Recorded azithromycin 500 mg tablet 500 mg PO DAILY 5 days #5 tabs 11/18/22 cefuroxime axetil 500 mg tablet 500 mg PO BID #10 tabs 11/18/22 Allergies Allergy/AdvReac Type Severity Reaction Status Date / Time shellfish derived Allergy Unknown Verified 05/17/22 15:25 strawberry Allergy Unknown Verified 05/17/22 15:25 Sulfa (Sulfonamide Allergy Unknown Verified 05/17/22 15:25 Antibiotics) Review of Systems Review of Systems: Yes Unobtainable due to mental status Constitutional: Constitutional: Denies fever(s) Cardiovascular: Cardiovascular: Reports dyspnea Respiratory: Respiratory: Reports cough and Reports dyspnea Neurologic: Reports confusion Psychiatric: Psychiatric: Reports confusion PMFSH Past Medical History Attestation statement: The following information was validated with the patient. (all information validated with SNF staff) Source: old records reviewed, nursing notes reviewed and other (obtained from SNF staff) Medical History Dilated cbd, acquired Bacteremia Metabolic encephalopathy Brief psychotic disorder Acute respiratory failure with hypoxia COVID-19 Other chronic pain Unsteadiness on feet Other abnormalities of gait and mobility Personal history of other venous thrombosis and embolism Anemia in other chronic diseases classified elsewhere Alcohol abuse, uncomplicated Opioid dependence, in remission Localized edema Non-pressure chronic ulcer of right calf with unspecified severity Cellulitis of unspecified part of limb Falls Alcoholism Pulmonary embolus Opiate dependence Social History Social History Household Members: None Household Members Other:: SNF Housing: Care Home Do you presently have visiting nurse or other home services: No Unable to assess alcohol history related to: Unknown Alcohol intake: never Patient Tobacco Use Status: Never used Tobacco Tobacco use type: Cigarette Advance Directives Date on File: 03/14/21 service: No Current occupational status: retired Physical Exam ED Vital Signs: Vital Signs - 24 hr 11/21/22 11:26 11/21/22 11:35 11/21/22 11:49 Temperature 98.4 F 98.3 F Pulse Rate 88 91 Respiratory Rate 16 14 Blood Pressure 151/88 H 146/87 H Pulse Oximetry 93 93 Oxygen Delivery Method Nasal Cannula Room Air Oxygen Flow Rate 11/21/22 13:26 11/21/22 14:18 Temperature Pulse Rate 85 Respiratory Rate 12 Blood Pressure 149/94 H Pulse Oximetry 92 95 Oxygen Delivery Method Nasal Cannula Nasal Cannula Oxygen Flow Rate 4 4 BMI result Body Mass Index 18.0 Const General: confusion Nutritional Appearance: cachectic Orientation/consciousness: confusion Limitations: altered mental status HENMT Head: Yes normal to inspection and Yes atraumatic Ears: hearing grossly normal bilaterally and external ears normal General nose exam: Normal external nose present, no nasal discharge noted and no epistaxis Face and sinus: Yes normal facial exam, No abrasion and No laceration Mouth: Normal oral and palatal mucosa present, no drooling and no muffled voice Eyes General: appearance normal, both eyes and all related structures Periorbital: periorbital findings normal Eyelids: Yes eyelids normal Conjunctivae: conjunctivae normal Pupils: Equal, round and reactive pupils present EOM: EOMs intact bilaterally Neck Neck: Yes normal visual inspection, Yes full ROM and Yes no lymphadenopathy Chest Chest palpation & inspection: normal inspection of the chest Resp Effort & Inspection: able to speak in complete sentences, Actively coughing Quality: wet and labored Auscultation: rales diffuse Cardio Rate: regular rate Rhythm: regular rhythm GI Inspection: Yes normal to inspection Neuro General: confusion Cranial nerves: Yes Equal, round and reactive pupils present Cognition (Neuro): normal cognition Motor exam (neuro): 5/5 motor strength present throughout Sensory Exam: Normal double simultaneous stimulation for sensation Coordination: [id number] test normal Extrem General: Yes normal to inspection, Yes full ROM and Yes capillary refill normal Psych Appearance: grossly normal Mental Status: mental status grossly normal Affect: normal affect Attitude: cooperative Thought process: Normal thought process present Thought content: Normal thought content present Insight: Good insight present (Psych) Medications Administered Discontinued Medications Generic Name Dose Route Start Last Admin Trade Name Freq PRN Reason Stop Dose Admin Ceftriaxone Sodium 1 gm/ 50 mls @ 100 mls/hr 11/21/22 13:45 11/21/22 14:12 Sodium Chloride IV 11/21/22 14:14 100 mls/hr ONCE ONE Administration Medical Decision Making Medical Decision Making [facility] Narrative: Patient is a 72 year old assigned female at with a history of PAD presenting to the emergency department today with increased confusion and decreased oxygenation. Patient's physical exam showed an individual in mild respiratory distress and confused. Patient's oxygen saturation dropped to 80% on room air and is at 92% on 4 liters of oxygen via nasal cannula. Patient's blood work showed an elevated WBC count of 11.2, a decreased potassium of 3.2, VBG pH of 7.45, and VBG HCO3 of 40. Patient's urine is pending at this time. Patient's EKG was unremarkable. Patient's chest x-ray showed new infiltrates compared to previous imaging obtained on 11/18/2022. Patient's clinical presentation is not consistent with sepsis (@1430). Patient was given IV Ceftriaxone. Given the patient's presentation, I believe she has not fully recovered from her previous pneumonia hospitalization and continues to have metabolic encephalopathy. I spoke with the hospitalist team who agreed to admission. I explained my physical exam findings as well as all test results to the patient. I answered all questions asked by the patient. Patient to be admitted to the hospitalist service. Differential Diagnosis Differential Diagnoses: The differential diagnosis associated with the presentation includes Pneumonia URI Encephalopthy Admission/Observation Consideration of admission/observation: Escalation of care including admission/observation considered Patient to be admitted. Consult Healthcare Provider Management of the patient was discussed with: Hospitalist (agreed to admission.) Lab Data [facility] Lab Attestation statement: I reviewed the patient's lab results. My interpretation of these results are in the [facility] rationale portion of this note. 11/21/22 12:28 11/21/22 12:28 Labs: Lab Results 11/21/22 11/21/22 11/21/22 Range/Units 11:33 12:12 12:28 WBC 11.2 H (4.8-10.8) X10*3/uL RBC 3.86 L (4.20-5.50) X10*6/uL Hgb 11.9 L (12.0-16.0) g/dl Hct 37.8 (37.0-47.0) % MCV 97.9 (80.0-98.0) fL MCH 30.8 (27.0-33.0) pg MCHC 31.5 (31.0-35.0) g/dl RDW 14.4 (11.0-16.0) % Plt Count 199 (160-400) X10*3/uL MPV 9.1 L (9.4-12.3) fL Immature Gran % (Auto) 1.3 H (0.0-0.4) % Neut % (Auto) 85.2 H (45-73) % Lymph % (Auto) 7.6 L (20-40) % Beauregard % (Auto) 5.5 (2-11) % Eos % (Auto) 0.0 (0-4) % Baso % (Auto) 0.4 (0-2) % Lymph # (Auto) 0.9 L (1.2-4.9) X10*3/uL Beauregard # (Auto) 0.6 (0.1-1.2) X10*3/uL Eos # (Auto) 0.0 (0.0-0.4) X10*3/uL Baso # (Auto) 0.1 (0.0-0.2) X10*3/uL Abs Immat Gran (auto) 0.14 H (0.00-0.03) X10*3/uL Absolute Neuts (auto) 9.5 H (2.0-8.3) x10*3/uL Absolute Nucleated RBC 0.000 (0.0-0.012) X10*3/uL Nucleated RBC % (auto) 0.0 (0.0-0.2) /100WBC PT 18.0 H D (11.1-13.3) SEC INR 1.5 H (0.9-1.1) APTT 41.8 H (26.0-36.4) SEC VBG pH 7.45 H (7.32-7.43) VBG pCO2 56 mmHg VBG pO2 58 mmHg VBG HCO3 40 H (22-26) mmol/L VBG O2 Saturation 86.0 % VBG Base Excess 14.0 mmol/L Sodium 146 H (135-145) mmol/L Potassium 3.2 L (3.3-5.1) mmol/L Chloride 103 (96-108) mmol/L Carbon Dioxide 32 H (22-29) mmol/L Anion Gap 14 (12-20) BUN 9 (9-16) mg/dL Creatinine 0.48 L (0.5-1.4) mg/dL Estim Creat Clear Calc 93.8 Estimated GFR > 60 POC Glucose 92 77 (60-115) mg/dL Random Glucose 77 (60-115) mg/dL Lactic Acid 0.9 (0.5-2.0) mmol/L Calcium 8.5 (8.4-10.2) mg/dL Magnesium 1.9 (1.6-2.6) mg/dL Total Bilirubin 0.4 (0.0-1.0) mg/dL AST 15 (5-31) U/L ALT 10 (0-31) U/L Alkaline Phosphatase 93 (39-117) U/L Troponin I High Sens 7.3 (<3.5-17.0) ng/L B-Natriuretic Peptide 261 H (<100) pg/mL Total Protein 5.8 L (6.5-8.0) g/dL Albumin 2.6 L (3.5-5.0) g/dL Influenza Type A (PCR) (Negative) Influenza Type B (PCR) (Negative) RSV RNA Qual (PCR) (Negative) SARS-CoV-2 RNA (RT-PCR) (Negative) 11/21/22 Range/Units 12:31 WBC (4.8-10.8) X10*3/uL RBC (4.20-5.50) X10*6/uL Hgb (12.0-16.0) g/dl Hct (37.0-47.0) % MCV (80.0-98.0) fL MCH (27.0-33.0) pg MCHC (31.0-35.0) g/dl RDW (11.0-16.0) % Plt Count (160-400) X10*3/uL MPV (9.4-12.3) fL Immature Gran % (Auto) (0.0-0.4) % Neut % (Auto) (45-73) % Lymph % (Auto) (20-40) % Beauregard % (Auto) (2-11) % Eos % (Auto) (0-4) % Baso % (Auto) (0-2) % Lymph # (Auto) (1.2-4.9) X10*3/uL Beauregard # (Auto) (0.1-1.2) X10*3/uL Eos # (Auto) (0.0-0.4) X10*3/uL Baso # (Auto) (0.0-0.2) X10*3/uL Abs Immat Gran (auto) (0.00-0.03) X10*3/uL Absolute Neuts (auto) (2.0-8.3) x10*3/uL Absolute Nucleated RBC (0.0-0.012) X10*3/uL Nucleated RBC % (auto) (0.0-0.2) /100WBC PT (11.1-13.3) SEC INR (0.9-1.1) APTT (26.0-36.4) SEC VBG pH (7.32-7.43) VBG pCO2 mmHg VBG pO2 mmHg VBG HCO3 (22-26) mmol/L VBG O2 Saturation % VBG Base Excess mmol/L Sodium (135-145) mmol/L Potassium (3.3-5.1) mmol/L Chloride (96-108) mmol/L Carbon Dioxide (22-29) mmol/L Anion Gap (12-20) BUN (9-16) mg/dL Creatinine (0.5-1.4) mg/dL Estim Creat Clear Calc Estimated GFR POC Glucose (60-115) mg/dL Random Glucose (60-115) mg/dL Lactic Acid (0.5-2.0) mmol/L Calcium (8.4-10.2) mg/dL Magnesium (1.6-2.6) mg/dL Total Bilirubin (0.0-1.0) mg/dL AST (5-31) U/L ALT (0-31) U/L Alkaline Phosphatase (39-117) U/L Troponin I High Sens (<3.5-17.0) ng/L B-Natriuretic Peptide (<100) pg/mL Total Protein (6.5-8.0) g/dL Albumin (3.5-5.0) g/dL Influenza Type A (PCR) NEGATIVE (Negative) Influenza Type B (PCR) NEGATIVE (Negative) RSV RNA Qual (PCR) NEGATIVE (Negative) SARS-CoV-2 RNA (RT-PCR) NEGATIVE (Negative) Independent Interpretation I performed an independent interpretation of an: EKG and Plain X-Ray Interpretation: My interpretation is in agreement with the radiologist's impression of this imaging study. EXAMINATION: XR CHEST CLINICAL INFORMATION: SOB COMPARISON: Chest 11/18/2022 TECHNIQUE: Frontal view of the chest was obtained. FINDINGS: There is bibasilar haziness suggestive pleural effusion with underlying atelectasis. In addition there is patchy opacity seen in bilateral parahilar regions likely infiltrates,/vascular congestion. It is new since last chest x-ray. Heart size is borderline enlarged. Pulmonary vascularity is mildly prominent. No gross bony abnormality. XR/XR chest 1V IMPRESSION: Interval development of bibasilar haziness likely pleural effusion and underlying atelectasis. Prominent bilateral parahilar markings likely infiltrate or vascular congestion. It is new since last study Dictated By: Taiwo Amezquita MD Signed By: Electronically signed by Taiwo Amezquita MD 11/21/22 1223 Vent. Rate: 088 BPM Atrial Rate: 088 BPM P-R Int: 150 ms QRS Dur: 094 ms QT Int: 374 ms P-R-T Axes: 048 -38 -53 degrees QTc Int: 452 ms Normal sinus rhythm Left axis deviation Nonspecific T wave abnormality Abnormal ECG When compared with ECG of 26-APR-2022 01:15, Nonspecific T wave abnormality, worse in Lateral leads Referred By: Vera Lazo Electronically Signed By:BHAVANA SEGUNDOCP Dictated By: Bhavana Love DO Signed By: Electronically signed by Bhavana Love DO 11/21/22 6996 Radiology Impression Discussion of test interpretation with radiology: I have reviewed the radiologist's reading. Independent Historian Clinical information obtained from an independent historian. History obtained from or confirmed by: EMS (EMS provided additional history and confirmed the history provided by the patient.) External Record Review External record reviewed: Inpatient record and Outpatient record Discharge Plan Discharge Clinical Impression: Pneumonia, Encephalopathy Patient Disposition: Admitted As Inpatient Prescriptions: No Action ondansetron HCl 4 mg Tablet 4 mg PO Q8H PRN (Reason: Nausea And Vomiting) buspirone 5 mg Tablet 5 mg PO TID methadone 10 mg Tablet 10 mg PO TID levothyroxine 50 mcg Tablet 50 mcg PO BEDTIME alum-mag hydroxide-simeth 200-200-20 mg/5 mL Suspension 30 ml PO Q4H PRN (Reason: GERD) albuterol sulfate 90 mcg/actuation Hfa Aerosol Inhaler 2 puff INHALATION Q4H PRN (Reason: copd) duloxetine 60 mg Capsule,Delayed Release(Dr/Ec) 60 mg PO DAILY apixaban 5 mg Tablet 5 mg PO BID acetaminophen 325 mg Tablet 650 mg PO Q6H PRN (Reason: Pain) polyethylene glycol 3350 [Miralax] 17 gram Powder In Packet 17 g PO DAILY magnesium hydroxide [Milk of Magnesia] 400 mg/5 mL Suspension 400 mg PO DAILY PRN (Reason: Constipation) bisacodyl 10 mg Suppository 10 mg DE DAILY PRN (Reason: Constipation) cefuroxime axetil 500 mg tablet 500 mg PO BID Qty: 10 0RF Rx Instructions: x 5 days, finish on 11/23/2022 azithromycin 500 mg tablet 500 mg PO DAILY 5 Days Qty: 5 0RF Rx Instructions: x 5 days, finish on 11/23/2022 gabapentin 300 mg Capsule 300 mg PO TID tiotropium bromide 2.5 mcg/actuation Mist 2 puff INHALATION DAILY Saccharomyces boulardii 1 mg PO BID lisinopril 2.5 mg tablet 5 mg PO DAILY tramadol 50 mg tablet 25 mg PO Q8H PRN (Reason: Pain) risperidone 0.5 mg tablet 0.5 mg PO BID
--- NOTE | 2022-11-21 11:34 | ECG_ITS ---
Test Reason : AMS Blood Pressure : / mmHG Vent. Rate : 088 BPM Atrial Rate : 088 BPM P-R Int : 150 ms QRS Dur : 094 ms QT Int : 374 ms P-R-T Axes : 048 -38 -53 degrees QTc Int : 452 ms Normal sinus rhythm Left axis deviation Nonspecific T wave abnormality Abnormal ECG When compared with ECG of 26-APR-2022 01:15, Nonspecific T wave abnormality, worse in Lateral leads Referred By: Vera Lazo Electronically Signed By:BHAVANA DIETZ
[2022-11-21 11:36] LABS: Glucose, Whole Blood 92 mg/dL (60-115)
[2022-11-21 12:16] LABS: Glucose, Whole Blood 77 mg/dL (60-115)
[2022-11-21 12:33] LABS: Venous Blood Gas Refer to POC result
[2022-11-21 12:33] LABS: VBG HCO3 40 mmol/L (22-26); VBG pCO2 56 mmHg; VBG pH 7.45 (7.32-7.43); VBG pO2 58 mmHg
[2022-11-21 12:35] LABS: MANUAL DIFF FLAG NO
[2022-11-21 12:37] LABS: Basophils Absolute Auto 0.1 X10*3/uL (0.0-0.2); Basophils Percent Auto 0.4 % (0-2); Hematocrit 37.8 % (37.0-47.0); Hemoglobin 11.9 g/dl (12.0-16.0); Imm Gran Abs Auto 0.14 X10*3/uL (0.00-0.03); Imm Gran Pct Auto 1.3 % (0.0-0.4); Lymphocytes Absolute Auto 0.9 X10*3/uL (1.2-4.9); Lymphocytes Percent Auto 7.6 % (20-40); Mean Corpuscular HGB Conc 31.5 g/dl (31.0-35.0); Mean Corpuscular Hemoglobin 30.8 pg (27.0-33.0); Mean Corpuscular Volume 97.9 fL (80.0-98.0); Mean Platelet Volume 9.1 fL (9.4-12.3); Monocytes Absolute Auto 0.6 X10*3/uL (0.1-1.2); Monocytes Percent Auto 5.5 % (2-11); Neutrophils Absolute Auto 9.5 x10*3/uL (2.0-8.3); Neutrophils Percent Auto 85.2 % (45-73); Platelet Count 199 X10*3/uL (160-400); Red Blood Count 3.86 X10*6/uL (4.20-5.50); Red Cell Distribution Width 14.4 % (11.0-16.0); White Blood Count 11.2 X10*3/uL (4.8-10.8)
[2022-11-21 12:42] LABS: INTERNATIONAL NORM RATIO 1.5 (0.9-1.1)
[2022-11-21 12:44] LABS: Partial Thromboplastin Time 41.8 SEC (26.0-36.4)
[2022-11-21 12:49] LABS: Lactic Acid 0.9 mmol/L (0.5-2.0)
[2022-11-21 12:51] LABS: Alanine Aminotransferase 10 U/L (0-31); Albumin Level 2.6 g/dL (3.5-5.0); Alkaline Phosphatase 93 U/L (39-117); Anion Gap 14 (12-20); Aspartate Amino Transferase 15 U/L (5-31); Bilirubin Total 0.4 mg/dL (0.0-1.0); Blood Urea Nitrogen 9 mg/dL (9-16); Calcium 8.5 mg/dL (8.4-10.2); Carbon Dioxide 32 mmol/L (22-29); Chloride 103 mmol/L (96-108); Creatinine Clr Calc Pharmacy 93.8; Estimated Glomerular Filt Rate > 60; Glucose Random 77 mg/dL (60-115); Magnesium 1.9 mg/dL (1.6-2.6); Potassium 3.2 mmol/L (3.3-5.1); Sodium 146 mmol/L (135-145); Total Protein 5.8 g/dL (6.5-8.0)
[2022-11-21 12:56] LABS: B Type Natriuretic Peptide 261 pg/mL (<100)
[2022-11-21 12:58] LABS: Troponin-I High Sensitivity 7.3 ng/L (<3.5-17.0)
[2022-11-21 13:15] LABS: Influenza A PCR NEGATIVE (Negative); Influenza B PCR NEGATIVE (Negative); Resp Syncy Virus RNA Qual PCR NEGATIVE (Negative); SARS COV2 PCR INHOUSE NEGATIVE (Negative)
[2022-11-21] MEDS: cefTRIAXone sodium 1 GM in 0.9 % Sodium Chloride 50 ML IV (14:12)
--- NOTE | 2022-11-21 14:48 | PHA.MEDREC ---
Pharmacy Consult ? Medication Reconciliation Pharmacy has completed the medication reconciliation. Patient came form [facility] with med list. Lizbeth Schmidt, [employer]
--- NOTE | 2022-11-21 15:54 | P.HPHOSP_ITS ---
History of Present Illness Date of Service: 11/21/22 <NORMA Gonzales - Last Filed: 11/21/22 17:56> Attending physician on admission: Sheldon Nunes <NORMA Gonzales - Last Filed: 11/21/22 17:56> Chief Complaint: Decreased responsiveness, hypoxia <NORMA Gonzales - Last Filed: 11/21/22 17:56> Pt is a 72-year-old female with a PMH significant for?PAD, PE, DVT, HTN, hypothyroidism, chronic pain syndrome, chronic pressure ulcers, alcohol use disorder, and opioid dependence who presents to the ED from [facility] with decreased responsiveness and low oxygen saturation. Patient is a resident at [facility] and was recently admitted to the hospital on 11/16 through and treated for pneumonia, UTI, and encephalopathy. The patient was discharged on O2 2 L NC, cefuroxime 500 mg p.o. b.i.d. x5 days, and azithromycin 500 mg p.o. daily x5 days. Staff at [facility] report patient has been declining since returning from the hospital and has been requiring 4 L of O2 at all times. Patient was not previously on home O2 until last discharge from hospital. Patient herself is alert and oriented to person and time, not to place or situation. Patient states she feels ?confused? and is not capable of meaningful contribution to HPI, which is instead taken from chart and provider review. In the ED patient was afebrile, slightly hypertensive up to 151/88, and satting as low as 80% on RA. Labs were significant for leukocytosis of 11.2, sodium 146, potassium 3.2, BNP 261, creatinine 0.48. Lactic acid WNL at 0.9. Hepatic function baseline. Patient tested negative for influenza type a and B, RSV, COVID. VBG H with pH 7.45, bicarb 40. UA pending. CXR showed interval development of by basilar haziness likely pleural effusion and underlying atelectasis, with prominent bilateral parahilar markings likely infiltrate or vascular congestion new since last study on 11/18/2022. ?EKG demonstrated normal sinus rhythm with nonspecific T-wave inversions but no evidence of ST elevations or depressions. Pt was treated with ceftriaxone. Pt will be admitted to the hospital for treatment and further evaluation of acute hypoxic respiratory failure and encephalopathy in the setting healthcare associated pneumonia that failed outpatient therapy. <NORMA Gonzales - Last Filed: 11/21/22 17:56> Review of Systems 2 Review of Systems: Unable to obtain due to patient's mentation <NORMA Gonzales - Last Filed: 11/21/22 17:56> [facility] Medical History: Medical History Dilated cbd, acquired Bacteremia Metabolic encephalopathy Brief psychotic disorder Acute respiratory failure with hypoxia COVID-19 Other chronic pain Unsteadiness on feet Other abnormalities of gait and mobility Personal history of other venous thrombosis and embolism Anemia in other chronic diseases classified elsewhere Alcohol abuse, uncomplicated Opioid dependence, in remission Localized edema Non-pressure chronic ulcer of right calf with unspecified severity Cellulitis of unspecified part of limb Falls Alcoholism Pulmonary embolus Opiate dependence <NORMA Gonzales - Last Filed: 11/21/22 17:56> Social History: Social History Household Members: None Household Members Other:: SNF Housing: Shelter Do you presently have visiting nurse or other home services: No Unable to assess alcohol history related to: Refusing to respond Alcohol intake: never Patient Tobacco Use Status: Never used Tobacco Tobacco use type: Cigarette Smoked in Last 30 Days: No Use of substances other than those prescribed or required for medical reasons: No Currently Displaying Signs/Symptoms of Drug Intoxication Withdrawal: No Do you feel safe in your current relationship?: No Current Relationship Is there a partner from a previous relationship who is making you feel unsafe now?: No Advance Directives: Yes Advance Directives on File: Yes Advance Directives Date on File: 03/14/21 Do you have thoughts of harming others: None Do you have a plan to hurt others: No Plan Patient : No Poor oral hygiene: No service: No Current occupational status: retired <NORMA Gonzales - Last Filed: 11/21/22 17:56> Meds Allergies/Adverse reactions: Allergies Allergy/AdvReac Type Severity Reaction Status Date / Time shellfish derived Allergy Unknown Verified 05/17/22 15:25 strawberry Allergy Unknown Verified 05/17/22 15:25 Sulfa (Sulfonamide Allergy Unknown Verified 05/17/22 15:25 Antibiotics) <NORMA Gonzales - Last Filed: 11/21/22 17:56> Home medications: Home Medications Medication Instructions Recorded Confirmed Last Taken Type albuterol sulfate 90 mcg/actuation 2 puff inhalation Q4H PRN copd 01/30/21 11/21/22 Unknown History aerosol inhaler aluminum-mag hydroxide-simethicone 30 ml PO Q4H PRN GERD 01/30/21 11/21/22 Unknown History 200 mg-200 mg-20 mg/5 mL oral susp apixaban 5 mg tablet 5 mg PO BID 01/30/21 11/21/22 07/23/21 History buspirone 5 mg tablet 5 mg PO TID 01/30/21 11/21/22 07/23/21 History duloxetine 60 mg capsule,delayed 60 mg PO DAILY 01/30/21 11/21/22 07/23/21 History release levothyroxine 50 mcg tablet 50 mcg PO BEDTIME 01/30/21 11/21/22 07/23/21 History methadone 10 mg tablet 10 mg PO TID chronic pain 01/30/21 11/21/22 07/23/21 History ondansetron HCl 4 mg tablet 4 mg PO Q8H PRN Nausea And Vomiting 07/23/21 11/21/22 Unknown History lisinopril 2.5 mg tablet 5 mg PO DAILY 10/15/21 11/21/22 Unknown History tramadol 50 mg tablet 25 mg PO Q8H PRN Pain 10/15/21 11/21/22 Unknown History acetaminophen 325 mg tablet 650 mg PO Q6H PRN Pain 12/07/21 11/21/22 Unknown History bisacodyl 10 mg rectal suppository 10 mg NE DAILY PRN Constipation 12/07/21 11/21/22 Unknown History magnesium hydroxide 400 mg/5 mL 400 mg PO DAILY PRN Constipation 12/07/21 11/21/22 Unknown History oral suspension (Milk of Magnesia) polyethylene glycol 3350 17 gram 17 g PO DAILY 12/07/21 11/21/22 Unknown History oral powder packet (Miralax) risperidone 0.5 mg tablet 0.5 mg PO BID 03/27/22 11/21/22 Unknown History Saccharomyces boulardii 1 mg PO BID 11/21/22 11/21/22 Unknown History gabapentin 300 mg capsule 300 mg PO TID 11/21/22 11/21/22 Unknown History tiotropium bromide 2.5 2 puff inhalation DAILY 11/21/22 11/21/22 Unknown History mcg/actuation mist for inhalation <NORMA Gonzales - Last Filed: 11/21/22 17:56> Physical Exam 2 Vital Signs and Narrative: Vital Signs: Last Vital Signs Temp 98.3 F 11/21/22 11:49 Pulse 85 11/21/22 14:18 Resp 12 11/21/22 14:18 BP 149/94 H 11/21/22 14:18 Pulse Ox 95 11/21/22 14:18 O2 Del Method Nasal Cannula 11/21/22 14:18 O2 Flow Rate 4 11/21/22 14:18 Oxygen Flow Rate 4 11/21/22 11:26 BMI result Body Mass Index 18.0 <NORMA Gonzales - Last Filed: 11/21/22 17:56> Constitutional: Alert, pleasantly confused, disheveled, cachectic, in no acute distress. Mental Status: Oriented to person and time, but not to place or situation. Eyes: Pupils are equal, round, and reactive to light. Ear, Nose, and Throat: Oropharynx clear, mucous membranes moist. Ears and nose without deformities. Trachea midline. Respiratory: Diminished lung sounds bilaterally. No Cardiovascular: S1, S2 regular. No murmurs, rubs, or gallops. Gastrointestinal: Abdomen soft, non-tender, non-distended. Normal bowel sounds. Neurologic: Cranial nerves II-XII are grossly intact bilaterally. No focal neurological deficits. Moves all extremities spontaneously. Skin: Stage II sacral decubitus ulcers, see note from 11/16/2022 for pictures from previous admission. Musculoskeletal: No cyanosis or clubbing. Patient with severe scoliosis. Extremities: No edema. <NORMA Gonzales - Last Filed: 11/21/22 17:56> Results Labs CBC and Chem 7: 11/22/22 05:42 11/22/22 05:42 <NORMA Gonzales - Last Filed: 11/21/22 17:56> Labs: Laboratory Results - last 24 hr 11/21/22 11/21/22 11/21/22 11:33 12:12 12:28 MCV 97.9 MCH 30.8 MCHC 31.5 RDW 14.4 Plt Count 199 MPV 9.1 L Immature Gran % (Auto) 1.3 H Neut % (Auto) 85.2 H Lymph % (Auto) 7.6 L [place] % (Auto) 5.5 Eos % (Auto) 0.0 Baso % (Auto) 0.4 Lymph # (Auto) 0.9 L [place] # (Auto) 0.6 Eos # (Auto) 0.0 Baso # (Auto) 0.1 Abs Immat Gran (auto) 0.14 H Absolute Neuts (auto) 9.5 H Absolute Nucleated RBC 0.000 Nucleated RBC % (auto) 0.0 PT 18.0 H D INR 1.5 H APTT 41.8 H VBG pH 7.45 H VBG pCO2 56 VBG pO2 58 VBG HCO3 40 H VBG O2 Saturation 86.0 VBG Base Excess 14.0 Anion Gap 14 Estim Creat Clear Calc 93.8 Estimated GFR > 60 POC Glucose 92 77 Random Glucose 77 Lactic Acid 0.9 Calcium 8.5 Magnesium 1.9 Total Bilirubin 0.4 AST 15 ALT 10 Alkaline Phosphatase 93 B-Natriuretic Peptide 261 H Total Protein 5.8 L Albumin 2.6 L Influenza Type A (PCR) Influenza Type B (PCR) RSV RNA Qual (PCR) SARS-CoV-2 RNA (RT-PCR) 11/21/22 12:31 MCV MCH MCHC RDW Plt Count MPV Immature Gran % (Auto) Neut % (Auto) Lymph % (Auto) [place] % (Auto) Eos % (Auto) Baso % (Auto) Lymph # (Auto) [place] # (Auto) Eos # (Auto) Baso # (Auto) Abs Immat Gran (auto) Absolute Neuts (auto) Absolute Nucleated RBC Nucleated RBC % (auto) PT INR APTT VBG pH VBG pCO2 VBG pO2 VBG HCO3 VBG O2 Saturation VBG Base Excess Anion Gap Estim Creat Clear Calc Estimated GFR POC Glucose Random Glucose Lactic Acid Calcium Magnesium Total Bilirubin AST ALT Alkaline Phosphatase B-Natriuretic Peptide Total Protein Albumin Influenza Type A (PCR) NEGATIVE Influenza Type B (PCR) NEGATIVE RSV RNA Qual (PCR) NEGATIVE SARS-CoV-2 RNA (RT-PCR) NEGATIVE <NORMA Gonzales - Last Filed: 11/21/22 17:56> Imaging Radiologist's Impressions: Impressions Chest X-Ray 11/21/22 12:00 IMPRESSION: Interval development of bibasilar haziness likely pleural effusion and underlying atelectasis. Prominent bilateral parahilar markings likely infiltrate or vascular congestion. It is new since last study <NORMA Gonzales - Last Filed: 11/21/22 17:56> Assessment and Plan (1) Encephalopathy: Status: Acute <NORMA Gonzales - Last Filed: 11/21/22 17:56> (2) Pneumonia: Status: Acute <NORMA Gonzales - Last Filed: 11/21/22 17:56> Pt is a 72-year-old female with a PMH significant for?PAD, PE, DVT, HTN, hypothyroidism, chronic pain syndrome, chronic pressure ulcers, alcohol use disorder, and opioid dependence who presents to the ED from SNF with decreased responsiveness and low oxygen saturation. Pt will be admitted to the hospital for treatment and further evaluation of acute hypoxic respiratory failure and encephalopathy in the setting healthcare associated pneumonia that failed outpatient therapy. Acute hypoxic respiratory failure in the setting of HAP pneumonia Patient previously admitted 5 days prior on 11/16/2022-11/18/2022 and treated for pneumonia, UTI, and encephalopathy Was discharged on O2 2 L NC, cefuroxime 500 mg p.o. b.i.d. x5 days, and azithromycin 500 mg p.o. daily x5 days Patient with increased confusion, supplemental O2 demands since discharge Currently satting in the mid 80s on RA CXR with interval development of bibasilar haziness likely pleural effusion and underlying atelectasis, with prominent bilateral parahilar markings likely infiltrate or vascular congestion, new since previous study Will start on broad-spectrum antibiotics: Vanc and Zosyn, started 11/21/[address] of chest Will check strep pneumo ag, Legionella ag, MRSA nasal swab, and procalcitonin Titrate supplemental oxygen >92, wean as tolerated Monitor respiratory status Follow cultures Acute toxic metabolic encephalopathy in the setting of HAP pneumonia Patient currently alert and oriented to person and time, but not to place or situation Patient apparently alert and oriented x4 at baseline, though with some short- term memory impairment Nurse swallow evaluation Treat as above Monitor mentation Question of UTI Pt treated for UTI during previous admission UA currently pending Sacral decubitus ulcers, stage II Patient positioning q2hr Wound care nurse consult during last admission, see note for details Zinc oxide barrier cream, cover with foam border daily and p.r.n. if dressing is soiled, may cleanse area with normal saline or sea cleanse Electrolyte abnormalities Minor electrolyte abnormalities: Sodium 146, potassium 3.2 Currently no need to supplement, follow BMP Hx of PE Continue Eliquis HTN Continue home meds Hypothyroidism Continue levothyroxine Full Code Attending:?Dr. Nunes DVT Prophylaxis: On Eliquis Pt will require a hospitalization of at least two nights for treatment of?acute toxic metabolic encephalopathy and acute hypoxic respiratory failure in setting healthcare-associated pneumonia that has failed outpatient therapy. Patient be treated with IV antibiotics and close monitoring. Addendum to history and physical by the advanced practice provider, Lyudmila Lopez I interviewed and examined the patient. I discussed their presentation and management with the OPHELIA. I reviewed the history and physical and agree with the documentation, with the following additions and corrections: <NORMA Gonzales - Last Filed: 11/21/22 17:56> Pt is a 72-year-old female with a PMH significant for?PAD, PE, DVT, HTN, hypothyroidism, chronic pain syndrome, chronic pressure ulcers, alcohol use disorder, and opioid dependence who presents to the ED from SNF with decreased responsiveness and low oxygen saturation. Pt will be admitted to the hospital for treatment and further evaluation of acute hypoxic respiratory failure and encephalopathy in the setting healthcare associated pneumonia that failed outpatient therapy. Acute hypoxic respiratory failure in the setting of HAP pneumonia Patient previously admitted 5 days prior on 11/16/2022-11/18/2022 and treated for pneumonia, UTI, and encephalopathy Was discharged on O2 2 L NC, cefuroxime 500 mg p.o. b.i.d. x5 days, and azithromycin 500 mg p.o. daily x5 days Patient with increased confusion, supplemental O2 demands since discharge Currently satting in the mid 80s on RA CXR with interval development of bibasilar haziness likely pleural effusion and underlying atelectasis, with prominent bilateral parahilar markings likely infiltrate or vascular congestion, new since previous study Will start on broad-spectrum antibiotics: Vanc and Zosyn, started 11/21/[address] of chest Will check strep pneumo ag, Legionella ag, MRSA nasal swab, and procalcitonin Titrate supplemental oxygen >92, wean as tolerated Monitor respiratory status Follow cultures Acute toxic metabolic encephalopathy in the setting of HAP pneumonia Patient currently alert and oriented to person and time, but not to place or situation Patient apparently alert and oriented x4 at baseline, though with some short- term memory impairment Nurse swallow evaluation Treat as above Monitor mentation Question of UTI Pt treated for UTI during previous admission UA currently pending Sacral decubitus ulcers, stage II Patient positioning q2hr Wound care nurse consult during last admission, see note for details Zinc oxide barrier cream, cover with foam border daily and p.r.n. if dressing is soiled, may cleanse area with normal saline or sea cleanse Electrolyte abnormalities Minor electrolyte abnormalities: Sodium 146, potassium 3.2 Currently no need to supplement, follow BMP Hx of PE Continue Eliquis HTN Continue home meds Hypothyroidism Continue levothyroxine Full Code Attending:?Dr. Nunes DVT Prophylaxis: On Eliquis Pt will require a hospitalization of at least two nights for treatment of?acute toxic metabolic encephalopathy and acute hypoxic respiratory failure in setting healthcare-associated pneumonia that has failed outpatient therapy. Patient be treated with IV antibiotics and close monitoring. Date of service 11/21/22 Addendum to history and physical by the advanced practice provider, Lyudmila Lopez I interviewed and examined the patient. I discussed their presentation and management with the OPHELIA. I reviewed the history and physical and agree with the documentation, with the following additions and corrections: 72yo F with PAD, PE/DVT on apixaban, HTN, hypothyroidism, chronic pain, chronic pressure ulcers, AUD, OUD [facility]. Recent admission here 11/16-11/18/22 for encephalopathy/pneumonia, discharged on cefuroxime and azithromycin Sent in for hypoxia and altered mental status CXR with worsening bibasilar infiltrates with pleural effusions RSV/Covid-19/flu negative Plan admit to M/S, check MRSA nasal swab, give vanco + pip-triston, obtain CT chest, check UAGs, trend PCT, follow BCx <Sheldon Nunes MD - Last Filed: 11/22/22 11:13> Time Spent With Patient Time: Total time managing care of this patient today ____ minutes. <NORMA Gonzales - Last Filed: 11/21/22 17:56> Quality Stroke Does the patient have a stroke diagnosis?: No <NORMA Gonzales - Last Filed: 11/21/22 17:56> VTE Prior VTE?: No <NORMA Gonzales - Last Filed: 11/21/22 17:56> VTE Risk Level:: Medical - moderate - high <NORMA Gonzales - Last Filed: 11/21/22 17:56> VTE Device Contraindication: Treatment Not Indicated <NORMA Gonzales - Last Filed: 11/21/22 17:56> VTE Drug Contraindication: N/A - Med Ordered <NORMA Gonzales - Last Filed: 11/21/22 17:56>
--- NOTE | 2022-11-21 17:20 | PC.NURSE ---
straight cath'd w tech brian at bedside. tolerated well. 300 cc concentrated sebastian/yellow clear urine. urine sent by [employer] to lab. wound dressing changed to backside. new pad/gown. repositioned/turned.
[2022-11-21 17:31] LABS: Procalcitonin 0.09 ng/mL
[2022-11-21 17:34] LABS: Appearance Urine Cloudy; Color Urine Dark Yellow; Glucose Urine UA Negative (Negative); Leukocyte Esterase Urine Trace (Negative); Nitrite Urine Negative (Negative); PH 5.5 (5.0-9.0); UMIC TRIGGER UACC YES; Urine Blood Large (3+) (Negative); Urine Ketones 40 mg/dL (Negative); Urine Protein 30 (1+) mg/dL (Neg-Trace)
--- NOTE | 2022-11-21 17:42 | PC.NURSE ---
attempted to call report- rn busy- going to call this rn back
[2022-11-21 18:04] LABS: Bacteria Urine None Seen (None Seen); Hyaline Casts Urine 0-2 /LPF (0-2); RBC Urine >20 /HPF (0-2); WBC Urine 0-5 /HPF (0-5)
[2022-11-21] MEDS: Piperacillin Sodium/Tazobactam 4.5 GM in 0.9 % Sodium Chloride 100 ML IV ×2 (18:10→23:00)
[2022-11-21] MEDS: vancomycin HCL 1,250 MG in 0.9 % Sodium Chloride 250 ML 166.67 MG IV (19:26)
[2022-11-21] MEDS: methADONE HCl 10 MG TABLET PO (21:27)
[2022-11-21] MEDS: Gabapentin 300 MG CAPSULE PO (21:27)
[2022-11-21] MEDS: busPIRone HCl 5 MG TABLET PO (21:27)
[2022-11-21] MEDS: Apixaban 5 MG TABLET PO (21:27)
[2022-11-21] MEDS: Levothyroxine Sodium 50 MCG TABLET PO (21:27)
[2022-11-21] MEDS: 0.9 % Sodium Chloride Flush 3 ML SYRINGE IVFLUSH (21:27)
[2022-11-21] MEDS: risperiDONE 0.5 MG TABLET PO (21:27)
--- NOTE | 2022-11-21 22:49 | PC.NURSE ---
1905 pt arrived on the floor from the er.SENG sanz ordered at [address].
[2022-11-22 02:57] VITALS: BP 132/82; PULSE 58; RESP 16; TEMP 36.1; O2SAT 97
[2022-11-22] MEDS: Piperacillin Sodium/Tazobactam 4.5 GM in 0.9 % Sodium Chloride 100 ML IV ×4 (04:43→22:40)
[2022-11-22 06:16] LABS: MANUAL DIFF FLAG NO
[2022-11-22 06:27] LABS: Basophils Percent Auto 0.5 % (0-2); Eosinophils Absolute Auto 0.1 X10*3/uL (0.0-0.4); Eosinophils Percent Auto 1.5 % (0-4); Hematocrit 32.9 % (37.0-47.0); Hemoglobin 10.2 g/dl (12.0-16.0); Imm Gran Abs Auto 0.12 X10*3/uL (0.00-0.03); Imm Gran Pct Auto 1.5 % (0.0-0.4); Lymphocytes Absolute Auto 1.3 X10*3/uL (1.2-4.9); Lymphocytes Percent Auto 15.5 % (20-40); Mean Platelet Volume 9.8 fL (9.4-12.3); Monocytes Absolute Auto 0.9 X10*3/uL (0.1-1.2); Monocytes Percent Auto 10.5 % (2-11); Neutrophils Absolute Auto 5.8 x10*3/uL (2.0-8.3); Neutrophils Percent Auto 70.5 % (45-73); Platelet Count 214 X10*3/uL (160-400); Red Blood Count 3.29 X10*6/uL (4.20-5.50); Red Cell Distribution Width 14.2 % (11.0-16.0); White Blood Count 8.2 X10*3/uL (4.8-10.8)
[2022-11-22 06:39] LABS: Anion Gap 13 (12-20); Blood Urea Nitrogen 10 mg/dL (9-16); Calcium 8.2 mg/dL (8.4-10.2); Carbon Dioxide 33 mmol/L (22-29); Chloride 104 mmol/L (96-108); Creatinine Clr Calc Pharmacy 83.9; Estimated Glomerular Filt Rate > 60; Glucose Random 153 mg/dL (60-115); Potassium 3.4 mmol/L (3.3-5.1); Sodium 147 mmol/L (135-145)
[2022-11-22 07:36] VITALS: BP 159/87; PULSE 61; RESP 18; TEMP 36.1; O2SAT 96
[2022-11-22] MEDS: DULoxetine HCl 60 MG CAPSULE.DR PO (08:32)
[2022-11-22] MEDS: methADONE HCl 10 MG TABLET PO ×3 (08:32→20:34)
[2022-11-22] MEDS: lisinopriL 5 MG TABLET PO (08:33)
[2022-11-22] MEDS: busPIRone HCl 5 MG TABLET PO ×3 (08:33→20:39)
[2022-11-22] MEDS: Apixaban 5 MG TABLET PO ×2 (08:33→20:34)
[2022-11-22] MEDS: risperiDONE 0.5 MG TABLET PO ×2 (08:33→20:34)
[2022-11-22] MEDS: Gabapentin 300 MG CAPSULE PO ×3 (08:33→20:34)
[2022-11-22] MEDS: polyethylene glycoL 3350 17 GM POWD.PACK PO (08:34)
[2022-11-22] MEDS: vancomycin HCL 750 MG in 0.9 % Sodium Chloride 250 ML 265 MG IV (08:34)
[2022-11-22] MEDS: 0.9 % Sodium Chloride Flush 3 ML SYRINGE IVFLUSH ×3 (08:35→20:35)
[2022-11-22 10:34] LABS: MRSA Nasal PCR NEGATIVE (Negative); SA Nasal PCR NEGATIVE (Negative)
--- NOTE | 2022-11-22 11:13 | P.PNIM_ITS ---
Subjective Subjective Date of Service: 11/22/22 Interval History: on 4L O2 minimal cough no fever no chest pain no abd pain/N/V Review of Systems Review of Systems: Yes all other systems are reviewed and are negative Physical Exam 2 Vital Signs: Vital Signs: Last Vital Signs Temp 96.9 F 11/22/22 07:36 Pulse 61 11/22/22 07:36 Resp 18 11/22/22 07:36 BP 159/87 H 11/22/22 07:36 Pulse Ox 96 11/22/22 07:36 O2 Del Method Nasal Cannula 11/22/22 07:36 O2 Flow Rate 4 11/22/22 07:36 Oxygen Flow Rate 4 11/21/22 11:26 BMI result Body Mass Index 16.8 Gen: in no acute distress, kyphosis, thin HEENT: sclera anicteric, moist mucus membranes Neck: supple Lungs: diminished bilateral bases Heart: regular rate and rhythm, no murmurs Abd: soft, non-tender, non-distended Ext: no edema Skin: warm/well-perfused Neuro: alert and oriented x3, no focal findings Psych: appropriate affect Objective Data Active Medications Acetaminophen (Acetaminophen 325 Mg Tablet) 650 mg PO Q6H PRN PRN Reason: Pain, Mild (Pain Scale 1-3) Al Hydroxide/Mg Hydroxide (Magnesium Hydrox/Alum Hydrox 30 Ml Oral.Susp) 30 ml PO Q4H PRN PRN Reason: GERD Albuterol Sulfate (Albuterol Sulfate 90 Mcg 8 Gm Inhaler) 2 puff INHALE Q4H PRN PRN Reason: Shortness of Breath/Wheezing Apixaban (Apixaban 5 Mg Tablet) 5 mg PO BID [facility] Last Admin: 11/22/22 08:33 Dose: 5 mg Documented By: DONAL Bisacodyl (Bisacodyl 10 Mg Supp.Rect) 10 mg [place] DAILY PRN PRN Reason: Constipation Buspirone HCl (Buspirone Hcl 5 Mg Tablet) 5 mg PO TID [facility] Last Admin: 11/22/22 08:33 Dose: 5 mg Documented By: DONAL Duloxetine HCl (Duloxetine Hcl 60 Mg Capsule.) 60 mg PO DAILY [facility] Last Admin: 11/22/22 08:32 Dose: 60 mg Documented By: DONAL Gabapentin (Gabapentin 300 Mg Capsule) 300 mg PO TID [facility] Last Admin: 11/22/22 08:33 Dose: 300 mg Documented By: DONAL Piperacillin Sod/Tazobactam (Sod 4.5 gm/ Sodium Chloride) 100 mls @ 200 mls/hr IV Q6H [facility] Last Infusion: 11/22/22 05:33 Dose: Infused Documented By: STEPHANE Vancomycin HCl 750 mg/ Sodium (Chloride) 265 mls @ 265 mls/hr IV Q12H [facility] Last Admin: 11/22/22 08:34 Dose: 265 mls/hr Documented By: DONAL Levothyroxine Sodium (Levothyroxine Sodium 50 Mcg Tablet) 50 mcg PO BEDTIME [facility] Last Admin: 11/21/22 21:27 Dose: 50 mcg Documented By: STEPHANE Lisinopril (Lisinopril 5 Mg Tablet) 5 mg PO DAILY [facility]; Protocol Last Admin: 11/22/22 08:33 Dose: 5 mg Documented By: DONAL Magnesium Hydroxide (Milk Of Magnesia 30 Ml Oral.Susp) 30 ml PO DAILY PRN PRN Reason: Constipation Methadone HCl (Methadone Hcl 10 Mg Tablet) 10 mg PO TID [facility] Last Admin: 11/22/22 08:32 Dose: 10 mg Documented By: DONAL Pharmacy Consult (Consult Rx Vancomycin Dosing) 1 each MISCELLANE DAILY PRN PRN Reason: Consult order Polyethylene Glycol (Polyethylene Glycol 3350 17 Gm Powd.Pack) 17 gm PO DAILY [facility] Last Admin: 11/22/22 08:34 Dose: 17 gm Documented By: DONAL Risperidone (Risperidone 0.5 Mg Tablet) 0.5 mg PO BID [facility] Last Admin: 11/22/22 08:33 Dose: 0.5 mg Documented By: DONAL Sodium Chloride (0.9 % Sodium Chloride Flush 3 Ml Syringe) 3 ml IVFLUSH QSHIFT [facility] Last Admin: 11/22/22 08:35 Dose: 3 ml Documented By: DONAL Tiotropium [place] (Tiotropium [place] 2.5 Mcg Inhaler) 2 puff INHALE RDAILY [facility] Last Admin: 11/22/22 08:45 Dose: 2 puff Documented By: JESSICA Tramadol HCl (Tramadol Hcl 50 Mg Tablet) 25 mg PO Q8H PRN PRN Reason: Pain, Moderate(Pain Scale 4-6) Zinc Oxide (Zinc Oxide (Triple Paste) 56.7 Gm Oint) 1 appl TOPICAL 8XD PRN; Protocol PRN Reason: Diaper Rash Labs 11/22/22 05:42 11/22/22 05:42 Labs: Laboratory Results - last 24 hr 11/21/22 11/21/22 11/21/22 11:33 12:12 12:28 MCV 97.9 MCH 30.8 MCHC 31.5 RDW 14.4 Plt Count 199 MPV 9.1 L Immature Gran % (Auto) 1.3 H Neut % (Auto) 85.2 H Lymph % (Auto) 7.6 L [place] % (Auto) 5.5 Eos % (Auto) 0.0 Baso % (Auto) 0.4 Lymph # (Auto) 0.9 L [place] # (Auto) 0.6 Eos # (Auto) 0.0 Baso # (Auto) 0.1 Abs Immat Gran (auto) 0.14 H Absolute Neuts (auto) 9.5 H Absolute Nucleated RBC 0.000 Nucleated RBC % (auto) 0.0 PT 18.0 H D INR 1.5 H APTT 41.8 H VBG pH 7.45 H VBG pCO2 56 VBG pO2 58 VBG HCO3 40 H VBG O2 Saturation 86.0 VBG Base Excess 14.0 Anion Gap 14 Estim Creat Clear Calc 93.8 Estimated GFR > 60 POC Glucose 92 77 Random Glucose 77 Lactic Acid 0.9 Calcium 8.5 Magnesium 1.9 Total Bilirubin 0.4 AST 15 ALT 10 Alkaline Phosphatase 93 B-Natriuretic Peptide 261 H Total Protein 5.8 L Albumin 2.6 L Procalcitonin 0.09 Urine Color Urine Appearance Urine pH Ur Specific Carbon Urine Protein Urine Glucose (UA) Urine Ketones Urine Blood Urine Nitrite Ur Leukocyte Esterase Urine RBC Urine WBC Ur Squamous Epith Cells Urine Bacteria Hyaline Casts Nasal Screen MRSA (PCR) Nasal S. aureus Screen Nasal MRSA/S.aureus Interp Influenza Type A (PCR) Influenza Type B (PCR) RSV RNA Qual (PCR) SARS-CoV-2 RNA (RT-PCR) 11/21/22 11/21/22 11/21/22 12:31 17:24 22:32 MCV MCH MCHC RDW Plt Count MPV Immature Gran % (Auto) Neut % (Auto) Lymph % (Auto) [place] % (Auto) Eos % (Auto) Baso % (Auto) Lymph # (Auto) [place] # (Auto) Eos # (Auto) Baso # (Auto) Abs Immat Gran (auto) Absolute Neuts (auto) Absolute Nucleated RBC Nucleated RBC % (auto) PT INR APTT VBG pH VBG pCO2 VBG pO2 VBG HCO3 VBG O2 Saturation VBG Base Excess Anion Gap Estim Creat Clear Calc Estimated GFR POC Glucose Random Glucose Lactic Acid Calcium Magnesium Total Bilirubin AST ALT Alkaline Phosphatase B-Natriuretic Peptide Total Protein Albumin Procalcitonin Urine Color Dark Yellow Urine Appearance Cloudy Urine pH 5.5 Ur Specific Carbon 1.020 Urine Protein 30 (1+) H Urine Glucose (UA) Negative Urine Ketones 40 Urine Blood Large (3+) H Urine Nitrite Negative Ur Leukocyte Esterase Trace H Urine RBC >20 H Urine WBC 0-5 Ur Squamous Epith Cells 6-10 Urine Bacteria None Seen Hyaline Casts 0-2 Nasal Screen MRSA (PCR) NEGATIVE Nasal S. aureus Screen NEGATIVE Nasal MRSA/S.aureus Interp SEE NOTE Influenza Type A (PCR) NEGATIVE Influenza Type B (PCR) NEGATIVE RSV RNA Qual (PCR) NEGATIVE SARS-CoV-2 RNA (RT-PCR) NEGATIVE 11/22/22 05:42 MCV 100.0 H MCH 31.0 MCHC 31.0 RDW 14.2 Plt Count 214 MPV 9.8 Immature Gran % (Auto) 1.5 H Neut % (Auto) 70.5 Lymph % (Auto) 15.5 L [place] % (Auto) 10.5 Eos % (Auto) 1.5 Baso % (Auto) 0.5 Lymph # (Auto) 1.3 [place] # (Auto) 0.9 Eos # (Auto) 0.1 Baso # (Auto) 0.0 Abs Immat Gran (auto) 0.12 H Absolute Neuts (auto) 5.8 Absolute Nucleated RBC 0.000 Nucleated RBC % (auto) 0.0 PT INR APTT VBG pH VBG pCO2 VBG pO2 VBG HCO3 VBG O2 Saturation VBG Base Excess Anion Gap 13 Estim Creat Clear Calc 83.9 Estimated GFR > 60 POC Glucose Random Glucose 153 H Lactic Acid Calcium 8.2 L Magnesium Total Bilirubin AST ALT Alkaline Phosphatase B-Natriuretic Peptide Total Protein Albumin Procalcitonin Urine Color Urine Appearance Urine pH Ur Specific Carbon Urine Protein Urine Glucose (UA) Urine Ketones Urine Blood Urine Nitrite Ur Leukocyte Esterase Urine RBC Urine WBC Ur Squamous Epith Cells Urine Bacteria Hyaline Casts Nasal Screen MRSA (PCR) Nasal S. aureus Screen Nasal MRSA/S.aureus Interp Influenza Type A (PCR) Influenza Type B (PCR) RSV RNA Qual (PCR) SARS-CoV-2 RNA (RT-PCR) ITS Impressions Chest X-Ray 11/21/22 12:00 IMPRESSION: Interval development of bibasilar haziness likely pleural effusion and underlying atelectasis. Prominent bilateral parahilar markings likely infiltrate or vascular congestion. It is new since last study Chest CT 11/21/22 19:02 IMPRESSION: Bilateral multilobar pneumonitis/pneumonia greatest in both lower lobes. Bilateral nodular opacities probably infectious or inflammatory in origin as well. Small bilateral pleural effusions. Enlarged gallbladder. Mild intrahepatic and extrahepatic biliary duct dilatation. Correlation with liver function tests recommended. Could be better evaluated with CT or ultrasound of the abdomen if clinically indicated. Chronic pancreatitis. Small right renal stone. Scoliosis and kyphosis and T11 and T12 vertebral body compression fractures. Fleischner guidelines were followed. 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 MRSA swab negative, d/c vanc and change to doxy for atypical coverage. trend PCT + follow BCx, pneumococcal + Legionella UAgs pending acute hypoxic resp failure - wean O2 as tolerated encephalopathy due to infection - resolving with PNA treatment distended gallbladder on CT - no symptoms + LFTs normal, no further workup indicated stage 2 sacral decubitus ulcer - per Wound Care consult from prior admission: cleanse area with normal saline or sea clense wound cleanser. Apply zinc barrier cream to wound and cover with a foam border daily and PRN if dressing is soiled. Keep skin dry from incontinence hyperNa, mild - encourage free water intake, recheck BMP in AM HTN - lisinopril hypothyroidism - LT4 mood disorder - buspirone, duloxetine, risperidone chronic pain - duloxetine, gapabentin, methadone, tramadol hx PE/DVT - continue apixaban VTE ppx - apixaban dispo - eventual return to LTC In my clinical judgment, the patient requires continued inpatient hospitalization for the following reasons: hypoxia, IV ABX Time Spent With Patient Time: Total time managing care of this patient today __40__ minutes. Quality Stroke Does the patient have a stroke diagnosis?: No VTE Prior VTE?: No VTE Risk Level:: Medical - moderate - high VTE Device Contraindication: Treatment Not Indicated VTE Drug Contraindication: N/A - Med Ordered
--- NOTE | 2022-11-22 12:34 | MHC.CM.PN ---
Addendum entered by Buffy Villela 11/23/22 09:21: [facility] HAS CONFIRMED PTS HCP IS INVOKED DOCUMENTATION REQUESTED Addendum entered by Buffy Villela 11/22/22 12:38: CORRECTION: [place] CORRECT NUMBER IS [phone] Original Note: PT IS A LTC RESIDENT OF [facility] WHERE SHE REQUIRES ASSISTANCE WITH [facility] C[facility] PT HAS A HCP AND MOLST ON FILE HER HCP IS HER SISTER, RODRIGUE LAROSE [phone] IMM DELIVERED DCP: RETURN TO [facility] VIA BLS
[2022-11-22 14:53] VITALS: BP 137/81; PULSE 65; RESP 16; TEMP 36.3; O2SAT 96
[2022-11-22] MEDS: traMADoL HCL 50 MG TABLET 25 MG PO (17:18)
[2022-11-22 20:00] VITALS: BP 132/76; PULSE 73; RESP 18; TEMP 36; O2SAT 92
[2022-11-22] MEDS: Levothyroxine Sodium 50 MCG TABLET PO (20:34)
[2022-11-23 03:38] VITALS: BP 130/75; PULSE 71; RESP 17; TEMP 36.1; O2SAT 96
[2022-11-23] MEDS: Piperacillin Sodium/Tazobactam 4.5 GM in 0.9 % Sodium Chloride 100 ML IV ×3 (05:07→18:22)
[2022-11-23 07:46] VITALS: BP 150/90; PULSE 56; RESP 18; TEMP 36.1; O2SAT 95
[2022-11-23 08:56] VITALS: PULSE 56; RESP 18; O2SAT 92
[2022-11-23] MEDS: Doxycycline Hyclate 100 MG in 0.9 % Sodium Chloride 250 ML 166.67 MG IV ×2 (08:57→20:13)
[2022-11-23] MEDS: 0.9 % Sodium Chloride Flush 3 ML SYRINGE IVFLUSH ×3 (08:58→20:14)
[2022-11-23] MEDS: Apixaban 5 MG TABLET PO ×2 (08:59→20:14)
[2022-11-23] MEDS: methADONE HCl 10 MG TABLET PO ×3 (08:59→20:14)
[2022-11-23] MEDS: risperiDONE 0.5 MG TABLET PO ×2 (08:59→20:15)
[2022-11-23] MEDS: DULoxetine HCl 60 MG CAPSULE.DR PO (09:00)
[2022-11-23] MEDS: busPIRone HCl 5 MG TABLET PO ×3 (09:00→20:15)
[2022-11-23] MEDS: lisinopriL 5 MG TABLET PO (09:00)
[2022-11-23] MEDS: Gabapentin 300 MG CAPSULE PO ×3 (09:00→20:14)
[2022-11-23 10:02] LABS: Anion Gap 17 (12-20); Blood Urea Nitrogen 8 mg/dL (9-16); Calcium 8.2 mg/dL (8.4-10.2); Carbon Dioxide 27 mmol/L (22-29); Chloride 100 mmol/L (96-108); Creatinine Clr Calc Pharmacy 79.1; Estimated Glomerular Filt Rate > 60; Glucose Random 112 mg/dL (60-115); Potassium 3.5 mmol/L (3.3-5.1); Sodium 140 mmol/L (135-145)
--- NOTE | 2022-11-23 10:10 | HO.PM.IMPN ---
Subjective Subjective Date of Service: 11/23/22 Interval History: on 4L O2 doesn't feel short of breath no fever no cough no chest pain Review of Systems Review of Systems: Yes all other systems are reviewed and are negative Physical Exam Vital Signs: Vital Signs: Last Vital Signs Temp 97 F 11/23/22 07:46 Pulse 56 11/23/22 08:56 Resp 18 11/23/22 08:56 BP 150/90 H 11/23/22 07:46 Pulse Ox 95 11/23/22 07:46 O2 Del Method Nasal Cannula 11/23/22 07:46 O2 Flow Rate 4 11/23/22 07:46 Oxygen Flow Rate 4 11/21/22 11:26 BMI result Body Mass Index 16.8 Gen: in no acute distress, kyphosis, cachectic HEENT: sclera anicteric, moist mucus membranes Neck: supple Lungs: diminished bilateral bases Heart: regular rate and rhythm, no murmurs Abd: soft, non-tender, non-distended Ext: no edema Skin: warm/well-perfused Neuro: alert and oriented x3, no focal findings Psych: appropriate affect Objective Data Active Medications Acetaminophen (Acetaminophen 325 Mg Tablet) 650 mg PO Q6H PRN PRN Reason: Pain, Mild (Pain Scale 1-3) Al Hydroxide/Mg Hydroxide (Magnesium Hydrox/Alum Hydrox 30 Ml Oral.Susp) 30 ml PO Q4H PRN PRN Reason: GERD Albuterol Sulfate (Albuterol Sulfate 90 Mcg 8 Gm Inhaler) 2 puff INHALE Q4H PRN PRN Reason: Shortness of Breath/Wheezing Apixaban (Apixaban 5 Mg Tablet) 5 mg PO BID [facility] Last Admin: 11/23/22 08:59 Dose: 5 mg Documented By: NATY Bisacodyl (Bisacodyl 10 Mg Supp.Rect) 10 mg [place] DAILY PRN PRN Reason: Constipation Buspirone HCl (Buspirone Hcl 5 Mg Tablet) 5 mg PO TID [facility] Last Admin: 11/23/22 09:00 Dose: 5 mg Documented By: NATY Duloxetine HCl (Duloxetine Hcl 60 Mg Capsule.Dr) 60 mg PO DAILY [facility] Last Admin: 11/23/22 09:00 Dose: 60 mg Documented By: NATY Gabapentin (Gabapentin 300 Mg Capsule) 300 mg PO TID [facility] Last Admin: 11/23/22 09:00 Dose: 300 mg Documented By: NATY Piperacillin Sod/Tazobactam (Sod 4.5 gm/ Sodium Chloride) 100 mls @ 200 mls/hr IV Q6H [facility] Last Infusion: 11/23/22 05:51 Dose: Infused Documented By: NATALIA Doxycycline Hyclate 100 mg/ (Sodium Chloride) 250 mls @ 166.67 mls/hr IV Q12H [facility] Last Infusion: 11/23/22 09:31 Dose: 0 mls/hr Documented By: NATY Levothyroxine Sodium (Levothyroxine Sodium 50 Mcg Tablet) 50 mcg PO BEDTIME [facility] Last Admin: 11/22/22 20:34 Dose: 50 mcg Documented By: ODRISNicole Lisinopril (Lisinopril 5 Mg Tablet) 5 mg PO DAILY [facility]; Protocol Last Admin: 11/23/22 09:00 Dose: 5 mg Documented By: NATY Magnesium Hydroxide (Milk Of Magnesia 30 Ml Oral.Susp) 30 ml PO DAILY PRN PRN Reason: Constipation Methadone HCl (Methadone Hcl 10 Mg Tablet) 10 mg PO TID [facility] Last Admin: 11/23/22 08:59 Dose: 10 mg Documented By: NATY Pharmacy Consult (Consult Rx Vancomycin Dosing) 1 each MISCELLANE DAILY PRN PRN Reason: Consult order Polyethylene Glycol (Polyethylene Glycol 3350 17 Gm Powd.Pack) 17 gm PO DAILY [facility] Last Admin: 11/23/22 09:00 Dose: Not Given Documented By: NATY Non-Admin Reason: Patient Refused Risperidone (Risperidone 0.5 Mg Tablet) 0.5 mg PO BID [facility] Last Admin: 11/23/22 08:59 Dose: 0.5 mg Documented By: NATY Sodium Chloride (0.9 % Sodium Chloride Flush 3 Ml Syringe) 3 ml IVFLUSH QSHIFT [facility] Last Admin: 11/23/22 08:58 Dose: 3 ml Documented By: NATY Tiotropium [place] (Tiotropium [place] 2.5 Mcg Inhaler) 2 puff INHALE RDAILY [facility] Last Admin: 11/23/22 08:53 Dose: 2 puff Documented By: JESSICA Tramadol HCl (Tramadol Hcl 50 Mg Tablet) 25 mg PO Q8H PRN PRN Reason: Pain, Moderate(Pain Scale 4-6) Last Admin: 11/22/22 17:18 Dose: 25 mg Documented By: NATY Zinc Oxide (Zinc Oxide (Triple Paste) 56.7 Gm Oint) 1 appl TOPICAL 8XD PRN; Protocol PRN Reason: Diaper Rash Labs 11/22/22 05:42 11/23/22 09:12 Labs: Laboratory Results - last 24 hr 11/21/22 11/23/22 22:32 09:12 Anion Gap 17 Estim Creat Clear Calc 79.1 Estimated GFR > 60 Random Glucose 112 Calcium 8.2 L Nasal Screen MRSA (PCR) NEGATIVE Nasal S. aureus Screen NEGATIVE Nasal MRSA/S.aureus Interp SEE NOTE Microbiology Microbiology Results: Microbiology 11/21/22 12:31 Blood Culture - Preliminary Blood - Venous No growth after 24 hours. 11/21/22 12:28 Blood Culture - Preliminary Blood - Venous No growth after 24 hours. 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 trend PCT + follow BCx, pneumococcal + Legionella UAgs pending, flu/RSV/Covid negative acute hypoxic resp failure - wean O2 as tolerated, currently on 4L encephalopathy due to infection - resolved with PNA treatment distended gallbladder on CT + chronic CBD dilation - no symptoms + LFTs normal, no further workup indicated stage 2 sacral decubitus ulcer - per Wound Care consult from prior admission: cleanse area with normal saline or sea clense wound cleanser. Apply zinc barrier cream to wound and cover with a foam border daily and PRN if dressing is soiled. Keep skin dry from incontinence hypovolemic hyperNa, mild - resolved HTN - continue lisinopril hypothyroidism - continue LT4 mood disorder - continue buspirone, duloxetine, risperidone chronic pain - continue duloxetine, gapabentin, methadone, tramadol hx PE/DVT - continue apixaban moderate protein-calorie malnutrition - supplements ordered VTE ppx - apixaban dispo - eventual return to LTC, hopefully can be off O2 In my clinical judgment, the patient requires continued inpatient hospitalization for the following reasons: hypoxia, IV ABX Time Spent With Patient Time: Total time managing care of this patient today ___40_ minutes. Quality Stroke Does the patient have a stroke diagnosis?: No VTE Prior VTE?: No VTE Risk Level:: Medical - moderate - high VTE Device Contraindication: Treatment Not Indicated VTE Drug Contraindication: N/A - Med Ordered
[2022-11-23 13:17] LABS: Procalcitonin 0.06 ng/mL
[2022-11-23 15:50] VITALS: BP 118/85; PULSE 80; RESP 16; TEMP 36.6; O2SAT 92
[2022-11-23] MEDS: traMADoL HCL 50 MG TABLET 25 MG PO (15:58)
[2022-11-23 19:44] VITALS: BP 141/85; PULSE 75; RESP 18; TEMP 36.6; O2SAT 94
[2022-11-23] MEDS: Levothyroxine Sodium 50 MCG TABLET PO (20:14)
[2022-11-24 00:07] VITALS: BP 156/91; PULSE 70; RESP 18; TEMP 36.9; O2SAT 96
[2022-11-24] MEDS: Piperacillin Sodium/Tazobactam 4.5 GM in 0.9 % Sodium Chloride 100 ML IV ×2 (00:11→05:49)
[2022-11-24 03:22] VITALS: BP 153/93; PULSE 57; RESP 18; TEMP 36.9; O2SAT 96
[2022-11-24 07:17] LABS: MANUAL DIFF FLAG NO
[2022-11-24 07:21] LABS: Basophils Percent Auto 0.8 % (0-2); Eosinophils Absolute Auto 0.3 X10*3/uL (0.0-0.4); Eosinophils Percent Auto 5.3 % (0-4); Hematocrit 32.4 % (37.0-47.0); Hemoglobin 10.1 g/dl (12.0-16.0); Imm Gran Abs Auto 0.13 X10*3/uL (0.00-0.03); Imm Gran Pct Auto 2.5 % (0.0-0.4); Lymphocytes Absolute Auto 1.9 X10*3/uL (1.2-4.9); Lymphocytes Percent Auto 36.1 % (20-40); Mean Corpuscular HGB Conc 31.2 g/dl (31.0-35.0); Mean Corpuscular Hemoglobin 30.2 pg (27.0-33.0); Monocytes Absolute Auto 0.5 X10*3/uL (0.1-1.2); Monocytes Percent Auto 9.7 % (2-11); Neutrophils Absolute Auto 2.4 x10*3/uL (2.0-8.3); Neutrophils Percent Auto 45.6 % (45-73); Platelet Count 181 X10*3/uL (160-400); Red Blood Count 3.34 X10*6/uL (4.20-5.50); Red Cell Distribution Width 13.9 % (11.0-16.0); White Blood Count 5.2 X10*3/uL (4.8-10.8)
[2022-11-24 08:00] VITALS: BP 142/82; PULSE 56; RESP 16; TEMP 36.6; O2SAT 96
[2022-11-24] MEDS: DULoxetine HCl 60 MG CAPSULE.DR PO (09:34)
[2022-11-24] MEDS: busPIRone HCl 5 MG TABLET PO ×2 (09:34→19:58)
[2022-11-24] MEDS: Gabapentin 300 MG CAPSULE PO ×2 (09:34→19:56)
[2022-11-24] MEDS: Apixaban 5 MG TABLET PO ×2 (09:34→19:58)
[2022-11-24] MEDS: risperiDONE 0.5 MG TABLET PO ×2 (09:34→19:58)
[2022-11-24] MEDS: lisinopriL 5 MG TABLET PO (09:35)
[2022-11-24] MEDS: Doxycycline Hyclate 100 MG in 0.9 % Sodium Chloride 250 ML 166.67 MG IV (09:35)
[2022-11-24] MEDS: methADONE HCl 10 MG TABLET PO ×2 (09:35→19:56)
[2022-11-24] MEDS: 0.9 % Sodium Chloride Flush 3 ML SYRINGE IVFLUSH (09:37)
[2022-11-24 10:43] LABS: MANUAL DIFF FLAG NO
[2022-11-24 10:46] LABS: Basophils Percent Auto 0.8 % (0-2); Eosinophils Absolute Auto 0.3 X10*3/uL (0.0-0.4); Eosinophils Percent Auto 4.9 % (0-4); Hematocrit 34.2 % (37.0-47.0); Hemoglobin 10.6 g/dl (12.0-16.0); Imm Gran Abs Auto 0.13 X10*3/uL (0.00-0.03); Imm Gran Pct Auto 2.6 % (0.0-0.4); Lymphocytes Absolute Auto 1.3 X10*3/uL (1.2-4.9); Lymphocytes Percent Auto 25.2 % (20-40); Mean Corpuscular Hemoglobin 30.5 pg (27.0-33.0); Mean Corpuscular Volume 98.3 fL (80.0-98.0); Mean Platelet Volume 9.1 fL (9.4-12.3); Monocytes Absolute Auto 0.4 X10*3/uL (0.1-1.2); Monocytes Percent Auto 6.9 % (2-11); Neutrophils Percent Auto 59.6 % (45-73); Platelet Count 209 X10*3/uL (160-400); Red Blood Count 3.48 X10*6/uL (4.20-5.50); Red Cell Distribution Width 13.9 % (11.0-16.0); White Blood Count 5.1 X10*3/uL (4.8-10.8)
--- NOTE | 2022-11-24 10:51 | MHC.CM.PN ---
EMR reviewed and per MD rounds, pt is not medically cleared for D/C due to continued monitoring of hypoxia, and requiring IV abx. CM will continue to follow.
[2022-11-24 11:11] VITALS: BMI 19.5
--- NOTE | 2022-11-24 11:18 | MHC.CLN ---
RE: CONSULT PT WITH INCREASED NUTRITION RISK R/T PRESSURE INJURY PT SLIGHTLY BELOW UBW RANGE PO INTAKE VARIABLE RANGING FROM 25-100%-THIS IS TYPICAL FOR PT (PREVIOUS ADMISSIONS) DIET RX: REGULAR-APPROPRIATE PT DISLIKES ENSURE-WILL D/C PT RECEPTIVE TO MAGIC CUP (FORTIFIED ICE CREAM) AND GELATEIN TO PROMOTE WOUND HEALING MONITOR PO INTAKE CLOSELY AND ENCOURAGE SUPPLEMENTS SEE ALSO FULL CLINICAL NUTRITION ASSESSMENT
[2022-11-24 12:00] VITALS: BP 114/85; PULSE 93; RESP 18; TEMP 36.7; O2SAT 93
--- NOTE | 2022-11-24 12:47 | HO.PM.IMPN ---
Subjective Subjective Date of Service: 11/24/22 Interval History: Feeling better since admission, still feel not at baseline feels cough and shortness of breath is better denies PND, no orthopnea, denies fever, no chills now on 2 L of oxygen tolerating diet no nausea no vomiting no abdominal pain or diarrhea. Review of Systems All other system reviewed and negative Physical Exam Vital Signs: Vital Signs: Last Vital Signs Temp 98.1 F 11/24/22 12:00 Pulse 93 11/24/22 12:00 Resp 18 11/24/22 12:00 BP 114/85 11/24/22 12:00 Pulse Ox 93 11/24/22 12:00 O2 Del Method Room Air 11/24/22 12:00 O2 Flow Rate 1 11/24/22 12:00 Oxygen Flow Rate 4 11/21/22 11:26 BMI result Body Mass Index 19.5 Const: Other: Gen: in no acute distress, sitting comfortably on bed HEENT: sclera anicteric, moist mucus membranes Neck: supple Lungs: diminished bilateral bases, no wheeze, no rhonchi Heart: regular rate and rhythm, no murmurs Abd: soft, non-tender, non-distended Ext: no edema Skin: warm/well-perfused Neuro: alert and oriented x3, no focal findings Psych: appropriate affect Objective Data Active Medications Acetaminophen (Acetaminophen 325 Mg Tablet) 650 mg PO Q6H PRN PRN Reason: Pain, Mild (Pain Scale 1-3) Al Hydroxide/Mg Hydroxide (Magnesium Hydrox/Alum Hydrox 30 Ml Oral.Susp) 30 ml PO Q4H PRN PRN Reason: GERD Albuterol Sulfate (Albuterol Sulfate 90 Mcg 8 Gm Inhaler) 2 puff INHALE Q4H PRN PRN Reason: Shortness of Breath/Wheezing Apixaban (Apixaban 5 Mg Tablet) 5 mg PO BID [facility] Last Admin: 11/24/22 09:34 Dose: 5 mg Documented By: ALDAIR Bisacodyl (Bisacodyl 10 Mg Supp.Rect) 10 mg CO DAILY PRN PRN Reason: Constipation Buspirone HCl (Buspirone Hcl 5 Mg Tablet) 5 mg PO TID [facility] Last Admin: 11/24/22 09:34 Dose: 5 mg Documented By: ALDAIR Duloxetine HCl (Duloxetine Hcl 60 Mg Capsule.Dr) 60 mg PO DAILY [facility] Last Admin: 11/24/22 09:34 Dose: 60 mg Documented By: ALDAIR Gabapentin (Gabapentin 300 Mg Capsule) 300 mg PO TID [facility] Last Admin: 11/24/22 09:34 Dose: 300 mg Documented By: ALDAIR Doxycycline Hyclate 100 mg/ (Sodium Chloride) 250 mls @ 166.67 mls/hr IV Q12H [facility] Last Infusion: 11/24/22 11:28 Dose: Infused Documented By: ALDAIR Piperacillin Sod/Tazobactam (Sod 4.5 gm/ Sodium Chloride) 100 mls @ 200 mls/hr IV Q6H [facility] Last Infusion: 11/24/22 06:20 Dose: Infused Documented By: SHILOH Levothyroxine Sodium (Levothyroxine Sodium 50 Mcg Tablet) 50 mcg PO BEDTIME [facility] Last Admin: 11/23/22 20:14 Dose: 50 mcg Documented By: SHILOH Lisinopril (Lisinopril 5 Mg Tablet) 5 mg PO DAILY [facility]; Protocol Last Admin: 11/24/22 09:35 Dose: 5 mg Documented By: ALDAIR Magnesium Hydroxide (Milk Of Magnesia 30 Ml Oral.Susp) 30 ml PO DAILY PRN PRN Reason: Constipation Methadone HCl (Methadone Hcl 10 Mg Tablet) 10 mg PO TID [facility] Last Admin: 11/24/22 09:35 Dose: 10 mg Documented By: ALDAIR Pharmacy Consult (Consult Rx Vancomycin Dosing) 1 each MISCELLANE DAILY PRN PRN Reason: Consult order Polyethylene Glycol (Polyethylene Glycol 3350 17 Gm Powd.Pack) 17 gm PO DAILY [facility] Last Admin: 11/24/22 10:38 Dose: Not Given Documented By: ALDAIR Non-Admin Reason: Patient Refused Risperidone (Risperidone 0.5 Mg Tablet) 0.5 mg PO BID [facility] Last Admin: 11/24/22 09:34 Dose: 0.5 mg Documented By: ALDAIR Sodium Chloride (0.9 % Sodium Chloride Flush 3 Ml Syringe) 3 ml IVFLUSH QSHIFT [facility] Last Admin: 11/24/22 09:37 Dose: 3 ml Documented By: ALDAIR Tiotropium [place] (Tiotropium [place] 2.5 Mcg Inhaler) 2 puff INHALE RDAILY [facility] Last Admin: 10/02/23 08:04 Dose: Not Given Documented By: MIGDALIA Non-Admin Reason: Med Not Available Tramadol HCl (Tramadol Hcl 50 Mg Tablet) 25 mg PO Q8H PRN PRN Reason: Pain, Moderate(Pain Scale 4-6) Last Admin: 11/23/22 15:58 Dose: 25 mg Documented By: BEN Zinc Oxide (Zinc Oxide (Triple Paste) 56.7 Gm Oint) 1 appl TOPICAL 8XD PRN; Protocol PRN Reason: Diaper Rash Labs 11/24/22 10:33 11/23/22 09:12 Labs: Laboratory Results - last 24 hr 11/23/22 11/24/22 11/24/22 09:12 07:00 10:33 MCV 97.0 98.3 H MCH 30.2 30.5 MCHC 31.2 31.0 RDW 13.9 13.9 Plt Count 181 209 MPV 9.0 L 9.1 L Immature Gran % (Auto) 2.5 H 2.6 H Neut % (Auto) 45.6 59.6 Lymph % (Auto) 36.1 25.2 [place] % (Auto) 9.7 6.9 Eos % (Auto) 5.3 H 4.9 H Baso % (Auto) 0.8 0.8 Lymph # (Auto) 1.9 1.3 [place] # (Auto) 0.5 0.4 Eos # (Auto) 0.3 0.3 Baso # (Auto) 0.0 0.0 Abs Immat Gran (auto) 0.13 H 0.13 H Absolute Neuts (auto) 2.4 3.0 Absolute Nucleated RBC 0.000 0.000 Nucleated RBC % (auto) 0.0 0.0 Procalcitonin 0.06 Hold Green Top See Note Microbiology Microbiology Results: Microbiology 11/21/22 12:31 Blood Culture - Preliminary Blood - Venous No growth after 48 hours. 11/21/22 12:28 Blood Culture - Preliminary Blood - Venous No growth after 48 hours. 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 Blood cultures x2 negative for 48 hours, PCT 0.06 , pneumococcal + Legionella UAgs pending, flu/RSV/Covid negative WBC normalized, will repeat chest x-ray encourage incentive spirometry, recommend out of bed to chair, will transition to by mouth antibiotics Augmentin and doxy follow clinical course acute hypoxic resp failure - wean O2 as tolerated, not on home oxygen, now on 2 L of oxygen finger oximetry 96% encephalopathy due to infection - resolved with PNA treatment distended gallbladder on CT + chronic CBD dilation - no symptoms + LFTs normal, no further workup indicated stage 2 sacral decubitus ulcer -per Wound Care consult from prior admission: cleanse area with normal saline or sea wound cleanser. Apply zinc barrier cream to wound and cover with a foam border daily and PRN if dressing is soiled. Keep skin dry from incontinence hypovolemic hyperNa, mild - resolved HTN -stable BP, continue lisinopril hypothyroidism - continue LT4 mood disorder - continue buspirone, duloxetine, risperidone chronic pain - continue duloxetine, gapabentin, methadone, tramadol hx PE/DVT - continue apixaban moderate protein-calorie malnutrition - continue supplements VTE ppx - apixaban dispo - eventual return to LTC In my clinical judgment, the patient requires continued inpatient hospitalization for the following reasons: hypoxia, IV ABX Time Spent With Patient Time: Total time managing care of this patient today ____ minutes. Quality Stroke Does the patient have a stroke diagnosis?: No VTE Prior VTE?: No VTE Risk Level:: Medical - moderate - high VTE Device Contraindication: Treatment Not Indicated VTE Drug Contraindication: N/A - Med Ordered
[2022-11-24] MEDS: Amoxicillin/Potassium Clav 875 MG TABLET PO (14:05)
--- NOTE | 2022-11-24 14:15 | HO.WOUND ---
Wound Care Consult Reason for consult: Stage 2 to sacral area and dry scabbed area on right heel Patient was recently seen on 11/17/22 for a stage II pressure injury to her coccyx. Patient is readmitted to the hospital. Asked to look at her coccyx and a dry scabbed area on her right heel. Patient still resides at a nursing facility. Patient was sitting up in bed at the time of visit. Patient was incontinent of urine and stool. Foam border removed from coccyx. No drainage noted. Zinc barrier cream intact. No open area at this time. Surrounding skin has a little scarring but intact. Zinc barrier cream applied to area and foam border applied. Right heel has a intact dry, scabbed area. No drainage. Surrounding tissue is scarred. Patient legs were on pillow but heels were still on the mattress so heel offloading boots put on patient. Recommendation: For the coccyx, would continue to apply zinc and foam border to keep area padded and protected. Dressing may be changed every other day and as needed for soiling. Continue to keep skin dry from incontinent episodes. Patient will need to be frequently repositioned, at least every 2 hours to prevent from skin break down. As for the right heel, no need for any dressings but would make sure the heels are floating off the bed with a pillow or using the heel offloading boots while in bed to prevent the heel from breaking down. If there are any changes or questions, please feel free to reconsult wound care.
[2022-11-24 15:10] VITALS: BP 139/82; PULSE 72; RESP 20; TEMP 36.8; O2SAT 85
--- NOTE | 2022-11-24 18:11 | PC.NURSE ---
Patient was confused and disoriented to situation, refused all afternoon PO medications
[2022-11-24 19:05] VITALS: BP 140/89; PULSE 103; RESP 20; TEMP 37.2; O2SAT 90
[2022-11-24] MEDS: Doxycycline Monohydrate 100 MG CAPSULE PO (19:56)
[2022-11-24] MEDS: Levothyroxine Sodium 50 MCG TABLET PO (19:59)
[2022-11-25] VITALS (7 sets, daily range): BP systolic 109–152; BP diastolic 79–106; PULSE 68–94; RESP 14–20; TEMP 36.3–37; O2SAT 87–96
[2022-11-25] MEDS: Amoxicillin/Potassium Clav 875 MG TABLET PO ×2 (04:14→17:39)
--- NOTE | 2022-11-25 09:04 | PM.CNPUL ---
History of Present Illness History of Present Illness Consult date: 11/25/22 Chief complaint: decreased responsiveness, hypoxia Narrative: This is an inpatient pulmonary consultation. The patient is a 72-year-old female with a PMH significant for?PAD, PE, DVT, HTN, hypothyroidism, chronic pain syndrome, chronic pressure ulcers, alcohol use disorder, and opioid dependence who presents to the ED from [facility] with decreased responsiveness and low oxygen saturation. Patient is a resident at [facility] and [facility] and was recently admitted to the hospital on 11/16 through and treated for pneumonia, UTI, and encephalopathy. The patient was discharged on O2 2 L NC, cefuroxime 500 mg p.o. b.i.d. x5 days, and azithromycin 500 mg p.o. daily x5 days. Staff at [facility] report patient has been declining since returning from the hospital and has been requiring 4 L of O2 at all times. Patient was not previously on home O2 until last discharge from hospital. In the ED patient was afebrile, slightly hypertensive up to 151/88, and satting as low as 80% on RA. Labs were significant for leukocytosis of 11.2, sodium 146, potassium 3.2, BNP 261, creatinine 0.48. Lactic acid WNL at 0.9. Hepatic function baseline. Patient tested negative for influenza type a and B, RSV, COVID. VBG H with pH 7.45, bicarb 40. UA pending. CXR showed interval development of by basilar haziness likely pleural effusion and underlying atelectasis, with prominent bilateral parahilar markings likely infiltrate or vascular congestion new since last study on 11/18/2022. Pt will be admitted to the hospital for acute hypoxic respiratory failure and encephalopathy in the setting healthcare associated pneumonia that failed outpatient therapy. The patient has been on broad spectrum abx and has been slow to improve. Today she is more awake, but still has a weak cough which maybe contributing to her recurrent infections. Review of Systems Constitutional: Constitutional: Denies fever(s) and Denies night sweats ENT: Denies change in voice, Denies lip swelling, Denies mouth pain, Denies nasal congestion, Denies nasal discharge and Denies tongue swelling Cardiovascular: Cardiovascular: Denies chest pain Respiratory: Respiratory: Reports cough Gastrointestinal: Gastrointestinal: Denies abdominal pain Musculoskeletal: Musculoskeletal: Denies no additional musculoskeletal complaints Neurologic: Denies Neuro-related abnormal movements Psychiatric: Psychiatric: Denies no additional psychiatric complaints Hematologic/Lymphatic: Hematologic/Lymphatic: Denies easy bleeding and Denies lymphadenopathy Allergic/Immunologic: Allergic/Immunologic: Denies lip swelling and Denies tongue swelling PMFSH Past Medical History Medical History Dilated cbd, acquired Bacteremia Metabolic encephalopathy Brief psychotic disorder Acute respiratory failure with hypoxia COVID-19 Other chronic pain Unsteadiness on feet Other abnormalities of gait and mobility Personal history of other venous thrombosis and embolism Anemia in other chronic diseases classified elsewhere Alcohol abuse, uncomplicated Opioid dependence, in remission Localized edema Non-pressure chronic ulcer of right calf with unspecified severity Cellulitis of unspecified part of limb Falls Alcoholism Pulmonary embolus Opiate dependence Social History Social History Household Members: None Household Members Other:: SNF Housing: Custodial Do you presently have visiting nurse or other home services: No Unable to assess alcohol history related to: Refusing to respond Alcohol intake: never Patient Tobacco Use Status: Never used Tobacco Tobacco use type: Cigarette Smoked in Last 30 Days: No Use of substances other than those prescribed or required for medical reasons: No Currently Displaying Signs/Symptoms of Drug Intoxication Withdrawal: No Do you feel safe in your current relationship?: No Current Relationship Is there a partner from a previous relationship who is making you feel unsafe now?: No Advance Directives: Yes Advance Directives on File: Yes Advance Directives Date on File: 03/14/21 Do you have thoughts of harming others: None Do you have a plan to hurt others: No Plan Patient : No Poor oral hygiene: No service: No Current occupational status: retired Meds Allergies Allergy/AdvReac Type Severity Reaction Status Date / Time shellfish derived Allergy Unknown Verified 05/17/22 15:25 strawberry Allergy Unknown Verified 05/17/22 15:25 Sulfa (Sulfonamide Allergy Unknown Verified 05/17/22 15:25 Antibiotics) Active Medications: Current Medications Acetaminophen (Acetaminophen 325 Mg Tablet) 650 mg PO Q6H PRN PRN Reason: Pain, Mild (Pain Scale 1-3) Al Hydroxide/Mg Hydroxide (Magnesium Hydrox/Alum Hydrox 30 Ml Oral.Susp) 30 ml PO Q4H PRN PRN Reason: GERD Albuterol Sulfate (Albuterol Sulfate 90 Mcg 8 Gm Inhaler) 2 puff INHALE Q4H PRN PRN Reason: Shortness of Breath/Wheezing Amoxicillin/Clavulanate Potassium (Amoxicillin/Potassium Clav 875 Mg Tablet) 875 mg PO Q12H [facility] Last Admin: 11/25/22 04:14 Dose: 875 mg Apixaban (Apixaban 5 Mg Tablet) 5 mg PO BID [facility] Last Admin: 11/24/22 19:58 Dose: 5 mg Bisacodyl (Bisacodyl 10 Mg Supp.Rect) 10 mg RI DAILY PRN PRN Reason: Constipation Buspirone HCl (Buspirone Hcl 5 Mg Tablet) 5 mg PO TID [facility] Last Admin: 11/24/22 19:58 Dose: 5 mg Doxycycline Monohydrate (Doxycycline Monohydrate 100 Mg Capsule) 100 mg PO Q12H [facility] Last Admin: 11/24/22 19:56 Dose: 100 mg Duloxetine HCl (Duloxetine Hcl 60 Mg Capsule.Dr) 60 mg PO DAILY [facility] Last Admin: 11/24/22 09:34 Dose: 60 mg Gabapentin (Gabapentin 300 Mg Capsule) 300 mg PO TID [facility] Last Admin: 11/24/22 19:56 Dose: 300 mg Levothyroxine Sodium (Levothyroxine Sodium 50 Mcg Tablet) 50 mcg PO BEDTIME [facility] Last Admin: 11/24/22 19:59 Dose: 50 mcg Lisinopril (Lisinopril 5 Mg Tablet) 5 mg PO DAILY [facility]; Protocol Last Admin: 11/24/22 09:35 Dose: 5 mg Magnesium Hydroxide (Milk Of Magnesia 30 Ml Oral.Susp) 30 ml PO DAILY PRN PRN Reason: Constipation Methadone HCl (Methadone Hcl 10 Mg Tablet) 10 mg PO TID [facility] Last Admin: 11/24/22 19:56 Dose: 10 mg Pharmacy Consult (Consult Rx Vancomycin Dosing) 1 each MISCELLANE DAILY PRN PRN Reason: Consult order Polyethylene Glycol (Polyethylene Glycol 3350 17 Gm Powd.Pack) 17 gm PO DAILY [facility] Last Admin: 11/24/22 10:38 Dose: Not Given Risperidone (Risperidone 0.5 Mg Tablet) 0.5 mg PO BID [facility] Last Admin: 11/24/22 19:58 Dose: 0.5 mg Sodium Chloride (0.9 % Sodium Chloride Flush 3 Ml Syringe) 3 ml IVFLUSH QSHIFT [facility] Last Admin: 11/25/22 00:00 Dose: 3 ml Tiotropium [place] (Tiotropium [place] 2.5 Mcg Inhaler) 2 puff INHALE RDAILY [facility] Last Admin: 11/24/22 08:04 Dose: Not Given Tramadol HCl (Tramadol Hcl 50 Mg Tablet) 25 mg PO Q8H PRN PRN Reason: Pain, Moderate(Pain Scale 4-6) Last Admin: 11/23/22 15:58 Dose: 25 mg Zinc Oxide (Zinc Oxide (Triple Paste) 56.7 Gm Oint) 1 appl TOPICAL 8XD PRN; Protocol PRN Reason: Diaper Rash Home Medications Medication Instructions Recorded Confirmed Last Taken Type albuterol sulfate 90 mcg/actuation 2 puff inhalation Q4H PRN copd 01/30/21 11/21/22 Unknown History aerosol inhaler aluminum-mag hydroxide-simethicone 30 ml PO Q4H PRN GERD 01/30/21 11/21/22 Unknown History 200 mg-200 mg-20 mg/5 mL oral susp apixaban 5 mg tablet 5 mg PO BID 01/30/21 11/21/22 07/23/21 History buspirone 5 mg tablet 5 mg PO TID 01/30/21 11/21/22 07/23/21 History duloxetine 60 mg capsule,delayed 60 mg PO DAILY 01/30/21 11/21/22 07/23/21 History release levothyroxine 50 mcg tablet 50 mcg PO BEDTIME 01/30/21 11/21/22 07/23/21 History methadone 10 mg tablet 10 mg PO TID chronic pain 01/30/21 11/21/22 07/23/21 History ondansetron HCl 4 mg tablet 4 mg PO Q8H PRN Nausea And Vomiting 07/23/21 11/21/22 Unknown History lisinopril 2.5 mg tablet 5 mg PO DAILY 10/15/21 11/21/22 Unknown History tramadol 50 mg tablet 25 mg PO Q8H PRN Pain 10/15/21 11/21/22 Unknown History acetaminophen 325 mg tablet 650 mg PO Q6H PRN Pain 12/07/21 11/21/22 Unknown History bisacodyl 10 mg rectal suppository 10 mg RI DAILY PRN Constipation 12/07/21 11/21/22 Unknown History magnesium hydroxide 400 mg/5 mL 400 mg PO DAILY PRN Constipation 12/07/21 11/21/22 Unknown History oral suspension (Milk of Magnesia) polyethylene glycol 3350 17 gram 17 g PO DAILY 12/07/21 11/21/22 Unknown History oral powder packet (Miralax) risperidone 0.5 mg tablet 0.5 mg PO BID 03/27/22 11/21/22 Unknown History Saccharomyces boulardii 1 mg PO BID 11/21/22 11/21/22 Unknown History gabapentin 300 mg capsule 300 mg PO TID 11/21/22 11/21/22 Unknown History tiotropium bromide 2.5 2 puff inhalation DAILY 11/21/22 11/21/22 Unknown History mcg/actuation mist for inhalation Physical Exam Vital Signs: Vital Signs: Last Vital Signs Temp 97.5 F 11/25/22 07:29 Pulse 82 11/25/22 07:29 Resp 20 11/25/22 07:29 BP 133/83 11/25/22 07:29 Pulse Ox 96 11/25/22 07:29 O2 Del Method Nasal Cannula 11/25/22 07:29 O2 Flow Rate 1 11/25/22 07:29 Oxygen Flow Rate 4 11/21/22 11:26 BMI result Body Mass Index 19.5 Const: General: comfortable Nutritional Appearance: underweight HEENT: Head: Yes normocephalic Neck: Neck: Yes supple Chest: Chest palpation & inspection: normal inspection of the chest Resp: Effort & Inspection: normal respiratory effort Auscultation: crackles and breath sounds absent Cardio: Heart sounds: S1 normal heart sound present and S2 normal heart sound present GI: Palpation (GI): Soft to palpation Skin: General skin exam: no rashes or lesions noted Extrem: General: Yes no clubbing, cyanosis or edema Results Laboratory Findings 11/24/22 10:33 11/23/22 09:12 ABG, PT/INR, D-dimer: PT/INR, D-dimer PT 18.0 SEC (11.1-13.3) H D 11/21/22 12:28 INR 1.5 (0.9-1.1) H 11/21/22 12:28 Abnormal lab findings: Abnormal Labs 11/21/22 11/21/22 11/22/22 12:28 17:24 05:42 WBC 11.2 H RBC 3.86 L 3.29 L Hgb 11.9 L 10.2 L Hct 32.9 L MCV 100.0 H MPV 9.1 L Immature Gran % (Auto) 1.3 H 1.5 H Neut % (Auto) 85.2 H Lymph % (Auto) 7.6 L 15.5 L Eos % (Auto) Lymph # (Auto) 0.9 L Abs Immat Gran (auto) 0.14 H 0.12 H Absolute Neuts (auto) 9.5 H PT 18.0 H D INR 1.5 H APTT 41.8 H VBG pH 7.45 H VBG HCO3 40 H Sodium 146 H 147 H Potassium 3.2 L Carbon Dioxide 32 H 33 H BUN Creatinine 0.48 L Random Glucose 153 H Calcium 8.2 L B-Natriuretic Peptide 261 H Total Protein 5.8 L Albumin 2.6 L Urine Protein 30 (1+) H Urine Blood Large (3+) H Ur Leukocyte Esterase Trace H Urine RBC >20 H 11/23/22 11/24/22 11/24/22 09:12 07:00 10:33 WBC RBC 3.34 L 3.48 L Hgb 10.1 L 10.6 L Hct 32.4 L 34.2 L MCV 98.3 H MPV 9.0 L 9.1 L Immature Gran % (Auto) 2.5 H 2.6 H Neut % (Auto) Lymph % (Auto) Eos % (Auto) 5.3 H 4.9 H Lymph # (Auto) Abs Immat Gran (auto) 0.13 H 0.13 H Absolute Neuts (auto) PT INR APTT VBG pH VBG HCO3 Sodium Potassium Carbon Dioxide BUN 8 L Creatinine Random Glucose Calcium 8.2 L B-Natriuretic Peptide Total Protein Albumin Urine Protein Urine Blood Ur Leukocyte Esterase Urine RBC Microbiology: Microbiology 11/21/22 12:31 Blood - Venous Blood Culture - Preliminary No growth after 48 hours. 11/21/22 12:28 Blood - Venous Blood Culture - Preliminary No growth after 48 hours. Assessment and Plan (1) Pneumonia: Qualifiers: Pneumonia type: due to unspecified organism Laterality: bilateral Lung location: unspecified part of lung Qualified Code(s): J18.9 - Pneumonia, unspecified organism Status: Acute HCAP (2) Acute respiratory failure with hypoxia: Status: Acute Plan continue Augmentin and Doxycycline continue CPT with ISS, needs an aerobika flutter valve for broncho-pulmonary hygeine continue nebs sputum culture if able continue oxygen to keep pox>90% Time Spent With Patient Time: Total time managing care of this patient today ____ minutes. Procedures Date of Service Date of Service: 11/25/22
[2022-11-25] MEDS: lisinopriL 5 MG TABLET PO (09:10)
[2022-11-25] MEDS: Doxycycline Monohydrate 100 MG CAPSULE PO ×2 (09:11→22:55)
[2022-11-25] MEDS: Gabapentin 300 MG CAPSULE PO ×2 (09:13→22:55)
[2022-11-25] MEDS: risperiDONE 0.5 MG TABLET PO ×2 (09:14→22:55)
[2022-11-25] MEDS: DULoxetine HCl 60 MG CAPSULE.DR PO (09:14)
[2022-11-25] MEDS: busPIRone HCl 5 MG TABLET PO ×2 (09:14→22:55)
[2022-11-25] MEDS: methADONE HCl 10 MG TABLET PO ×2 (09:14→22:55)
[2022-11-25] MEDS: Apixaban 5 MG TABLET PO ×2 (09:17→22:55)
[2022-11-25] MEDS: 0.9 % Sodium Chloride Flush 3 ML SYRINGE IVFLUSH ×3 (09:18→22:55)
--- NOTE | 2022-11-25 14:53 | HO.PM.IMPN ---
Subjective Subjective Date of Service: 11/25/22 Interval History: Patient awake alert, complaining of shortness breath and cough, denies fever, no chills, tolerating diet with no nausea no vomiting no abdominal pain denies lightheadedness, requiring 2-3 L of oxygen finger oximetry dropped to 87% on room air, no acute events overnight Review of Systems All other system reviewed and negative Physical Exam Vital Signs: Vital Signs: Last Vital Signs Temp 97.5 F 11/25/22 07:29 Pulse 73 11/25/22 12:24 Resp 18 11/25/22 12:24 BP 117/80 11/25/22 09:25 Pulse Ox 93 11/25/22 09:25 O2 Del Method Nasal Cannula 11/25/22 09:25 O2 Flow Rate 2 11/25/22 09:25 Oxygen Flow Rate 4 11/21/22 11:26 BMI result Body Mass Index 19.5 Const: Other: Gen: in no acute distress, sitting comfortably on bed HEENT: sclera anicteric, moist mucus membranes Neck: supple Lungs: diminished bilateral bases, rhonchi bilaterally Heart: regular rate and rhythm, no murmurs Abd: soft, non-tender, non-distended Ext: no edema Skin: warm/well-perfused Neuro: alert and oriented x3, no focal findings Psych: appropriate affect Objective Data Active Medications Acetaminophen (Acetaminophen 325 Mg Tablet) 650 mg PO Q6H PRN PRN Reason: Pain, Mild (Pain Scale 1-3) Al Hydroxide/Mg Hydroxide (Magnesium Hydrox/Alum Hydrox 30 Ml Oral.Susp) 30 ml PO Q4H PRN PRN Reason: GERD Albuterol Sulfate (Albuterol Sulfate 90 Mcg 8 Gm Inhaler) 2 puff INHALE Q4H PRN PRN Reason: Shortness of Breath/Wheezing Amoxicillin/Clavulanate Potassium (Amoxicillin/Potassium Clav 875 Mg Tablet) 875 mg PO Q12H [facility] Last Admin: 11/25/22 04:14 Dose: 875 mg Documented By: ROXANNE Apixaban (Apixaban 5 Mg Tablet) 5 mg PO BID [facility] Last Admin: 11/25/22 09:17 Dose: 5 mg Documented By: STUART Bisacodyl (Bisacodyl 10 Mg Supp.Rect) 10 mg [place] DAILY PRN PRN Reason: Constipation Buspirone HCl (Buspirone Hcl 5 Mg Tablet) 5 mg PO TID [facility] Last Admin: 11/25/22 09:14 Dose: 5 mg Documented By: STUART Doxycycline Monohydrate (Doxycycline Monohydrate 100 Mg Capsule) 100 mg PO Q12H [facility] Last Admin: 11/25/22 09:11 Dose: 100 mg Documented By: STUART Duloxetine HCl (Duloxetine Hcl 60 Mg Capsule.Dr) 60 mg PO DAILY [facility] Last Admin: 11/25/22 09:14 Dose: 60 mg Documented By: STUART Gabapentin (Gabapentin 300 Mg Capsule) 300 mg PO TID [facility] Last Admin: 11/25/22 09:13 Dose: 300 mg Documented By: STUART Levothyroxine Sodium (Levothyroxine Sodium 50 Mcg Tablet) 50 mcg PO BEDTIME [facility] Last Admin: 11/24/22 19:59 Dose: 50 mcg Documented By: ROXANNE Lisinopril (Lisinopril 5 Mg Tablet) 5 mg PO DAILY [facility]; Protocol Last Admin: 11/25/22 09:10 Dose: 5 mg Documented By: STUART Magnesium Hydroxide (Milk Of Magnesia 30 Ml Oral.Susp) 30 ml PO DAILY PRN PRN Reason: Constipation Methadone HCl (Methadone Hcl 10 Mg Tablet) 10 mg PO TID [facility] Last Admin: 11/25/22 09:14 Dose: 10 mg Documented By: STUART Pharmacy Consult (Consult Rx Vancomycin Dosing) 1 each MISCELLANE DAILY PRN PRN Reason: Consult order Polyethylene Glycol (Polyethylene Glycol 3350 17 Gm Powd.Pack) 17 gm PO DAILY [facility] Last Admin: 11/25/22 09:20 Dose: Not Given Documented By: STUART Non-Admin Reason: Patient Refused Risperidone (Risperidone 0.5 Mg Tablet) 0.5 mg PO BID [facility] Last Admin: 11/25/22 09:14 Dose: 0.5 mg Documented By: STUART Sodium Chloride (0.9 % Sodium Chloride Flush 3 Ml Syringe) 3 ml IVFLUSH QSHIFT [facility] Last Admin: 11/25/22 09:18 Dose: 3 ml Documented By: STUART Tiotropium [place] (Tiotropium [place] 2.5 Mcg Inhaler) 2 puff INHALE RDAILY [facility] Last Admin: 11/25/22 12:24 Dose: 2 puff Documented By: JAMIA Tramadol HCl (Tramadol Hcl 50 Mg Tablet) 25 mg PO Q8H PRN PRN Reason: Pain, Moderate(Pain Scale 4-6) Last Admin: 11/23/22 15:58 Dose: 25 mg Documented By: BEN Zinc Oxide (Zinc Oxide (Triple Paste) 56.7 Gm Oint) 1 appl TOPICAL 8XD PRN; Protocol PRN Reason: Diaper Rash Labs 11/24/22 10:33 11/23/22 09:12 Assessment and Plan (1) Encephalopathy: Status: Acute (2) Pneumonia: Status: Acute Plan 72yo F with PAD, 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 Blood cultures x2 negative for 48 hours, PCT 0.06 , pneumococcal + Legionella UAgs pending, flu/RSV/Covid negative Now on Augmentin and doxycycline, day 2 ,cough medications,spirivia. WBC normalized, repeat chest x-ray showed bilateral multi lobar infiltrates slightly increased in left upper lobe and small bilateral pleural effusions unchanged Consulted pulmonology due to worsening infiltrate they agree with current antibiotics, and recommend chest PT with incentive spirometry and flutter valve for bronchopulmonary hygiene Sputum culture sensitivity, recommend out of bed to chair, follow clinical course acute hypoxic resp failure - wean O2 as tolerated, not on home oxygen, now on 2 L of oxygen finger oximetry 96% encephalopathy due to infection - resolved with PNA treatment distended gallbladder on CT + chronic CBD dilation - no symptoms + LFTs normal, no further workup indicated stage 2 sacral decubitus ulcer -per Wound Care consult from prior admission: cleanse area with normal saline or sea wound cleanser. Apply zinc barrier cream to wound and cover with a foam border daily and PRN if dressing is soiled. Keep skin dry from incontinence hypovolemic hyperNa, mild- resolved HTN -stable BP, continue lisinopril hypothyroidism- continue LT4 mood disorder- continue buspirone, duloxetine, risperidone chronic pain- continue duloxetine, gapabentin, methadone, tramadol hx PE/DVT- continue apixaban moderate protein-calorie malnutrition- continue supplements VTE ppx- apixaban dispo - eventual return to LTC In my clinical judgment, the patient requires continued inpatient hospitalization for the following reasons: hypoxia, worsening infiltrate Time Spent With Patient Time: Total time managing care of this patient today ____ minutes. Quality Stroke Does the patient have a stroke diagnosis?: No VTE Prior VTE?: No VTE Risk Level:: Medical - moderate - high VTE Device Contraindication: Treatment Not Indicated VTE Drug Contraindication: N/A - Med Ordered
[2022-11-25 16:03] LABS: Strep Pneumo Ag urine Not Detected (Not Detected)
[2022-11-25] MEDS: Levothyroxine Sodium 50 MCG TABLET PO (22:55)
[2022-11-26] MEDS: Amoxicillin/Potassium Clav 875 MG TABLET PO (00:55)
[2022-11-26 04:00] VITALS: BP 140/86; PULSE 67; RESP 20; TEMP 36.6; O2SAT 93
[2022-11-26 07:21] VITALS: BP 154/84; PULSE 76; RESP 20; TEMP 36.4; O2SAT 94
[2022-11-26 07:39] VITALS: PULSE 76; RESP 18; O2SAT 94
[2022-11-26] MEDS: Apixaban 5 MG TABLET PO ×2 (07:59→20:31)
[2022-11-26] MEDS: risperiDONE 0.5 MG TABLET PO ×3 (07:59→20:36)
[2022-11-26] MEDS: DULoxetine HCl 60 MG CAPSULE.DR PO (07:59)
[2022-11-26] MEDS: Doxycycline Monohydrate 100 MG CAPSULE PO ×2 (07:59→20:32)
[2022-11-26] MEDS: busPIRone HCl 5 MG TABLET PO ×2 (07:59→20:33)
[2022-11-26] MEDS: methADONE HCl 10 MG TABLET PO ×3 (07:59→20:35)
[2022-11-26] MEDS: 0.9 % Sodium Chloride Flush 3 ML SYRINGE IVFLUSH (08:00)
[2022-11-26] MEDS: lisinopriL 5 MG TABLET PO (08:00)
[2022-11-26] MEDS: Gabapentin 300 MG CAPSULE PO ×2 (08:00→20:32)
--- NOTE | 2022-11-26 10:58 | MHC.CLN ---
F/U PT WITH INCREASED NUTRITION RISK R/T PRESSURE INJURY PT SLIGHTLY BELOW UBW RANGE PO INTAKE CONTINUES TO BE VARIABLE RANGING FROM 25-100%-THIS IS TYPICAL FOR PT (FROM PREVIOUS ADMISSIONS) DIET RX: REGULAR-APPROPRIATE PT RECEIVING MAGIC CUP (FORTIFIED ICE CREAM) AND GELATEIN TO PROMOTE WOUND HEALING MONITOR PO INTAKE CLOSELY AND ENCOURAGE SUPPLEMENTS
--- NOTE | 2022-11-26 12:01 | MHC.CM.PN ---
EMR REVIEWED. PER MD ROUNDS PT IS NOT MEDICALLY CLEARED FOR DC AT THIS TIME. AWAITING PULMONOLOGY INPUT. CM WILL CONTINUE TO FOLLOW.
--- NOTE | 2022-11-26 13:44 | HO.PM.IMPN ---
Subjective Subjective Date of Service: 11/26/22 Interval History: Feeling better this morning, less shortness of breath and cough, no fevers, no chills, using incentive spirometry, no acute issues overnight. No nausea, no vomiting, no abdominal pain. Review of Systems All other system reviewed and negative Physical Exam Vital Signs: Vital Signs: Last Vital Signs Temp 97.5 F 11/26/22 07:21 Pulse 76 11/26/22 07:39 Resp 18 11/26/22 07:39 BP 154/84 H 11/26/22 07:21 Pulse Ox 94 11/26/22 07:21 O2 Del Method Nasal Cannula 11/26/22 07:21 O2 Flow Rate 2 11/26/22 07:21 Oxygen Flow Rate 4 11/21/22 11:26 BMI result Body Mass Index 19.5 Const: Other: Gen: in no acute distress, sitting comfortably on bed HEENT: sclera anicteric, moist mucus membranes Neck: supple Lungs: diminished bilateral bases, rhonchi bilaterally Heart: regular rate and rhythm, no murmurs Abd: soft, non-tender, non-distended Ext: no edema Skin: warm/well-perfused Neuro: alert and oriented x3, no focal findings Psych: appropriate affect Objective Data Active Medications Acetaminophen (Acetaminophen 325 Mg Tablet) 650 mg PO Q6H PRN PRN Reason: Pain, Mild (Pain Scale 1-3) Al Hydroxide/Mg Hydroxide (Magnesium Hydrox/Alum Hydrox 30 Ml Oral.Susp) 30 ml PO Q4H PRN PRN Reason: GERD Albuterol Sulfate (Albuterol Sulfate 90 Mcg 8 Gm Inhaler) 2 puff INHALE Q4H PRN PRN Reason: Shortness of Breath/Wheezing Amoxicillin/Clavulanate Potassium (Amoxicillin/Potassium Clav 875 Mg Tablet) 875 mg PO Q12H [facility] Last Admin: 11/26/22 00:55 Dose: 875 mg Documented By: PHUC Apixaban (Apixaban 5 Mg Tablet) 5 mg PO BID [facility] Last Admin: 11/26/22 07:59 Dose: 5 mg Documented By: CHARI Bisacodyl (Bisacodyl 10 Mg Supp.Rect) 10 mg [place] DAILY PRN PRN Reason: Constipation Buspirone HCl (Buspirone Hcl 5 Mg Tablet) 5 mg PO TID [facility] Last Admin: 11/26/22 07:59 Dose: 5 mg Documented By: CHARI Doxycycline Monohydrate (Doxycycline Monohydrate 100 Mg Capsule) 100 mg PO Q12H [facility] Last Admin: 11/26/22 07:59 Dose: 100 mg Documented By: CHARI Duloxetine HCl (Duloxetine Hcl 60 Mg Capsule.Dr) 60 mg PO DAILY [facility] Last Admin: 11/26/22 07:59 Dose: 60 mg Documented By: CHARI Gabapentin (Gabapentin 300 Mg Capsule) 300 mg PO TID [facility] Last Admin: 11/26/22 08:00 Dose: 300 mg Documented By: CHARI Levothyroxine Sodium (Levothyroxine Sodium 50 Mcg Tablet) 50 mcg PO BEDTIME [facility] Last Admin: 11/25/22 22:55 Dose: 50 mcg Documented By: SMITH Lisinopril (Lisinopril 5 Mg Tablet) 5 mg PO DAILY [facility]; Protocol Last Admin: 11/26/22 08:00 Dose: 5 mg Documented By: CHARI Magnesium Hydroxide (Milk Of Magnesia 30 Ml Oral.Susp) 30 ml PO DAILY PRN PRN Reason: Constipation Methadone HCl (Methadone Hcl 10 Mg Tablet) 10 mg PO TID [facility] Last Admin: 11/26/22 07:59 Dose: 10 mg Documented By: CHARI Pharmacy Consult (Consult Rx Vancomycin Dosing) 1 each MISCELLANE DAILY PRN PRN Reason: Consult order Polyethylene Glycol (Polyethylene Glycol 3350 17 Gm Powd.Pack) 17 gm PO DAILY [facility] Last Admin: 11/26/22 08:00 Dose: Not Given Documented By: CHARI Non-Admin Reason: Patient Refused Risperidone (Risperidone 0.5 Mg Tablet) 0.5 mg PO BID [facility] Last Admin: 11/26/22 07:59 Dose: 0.5 mg Documented By: CHARI Sodium Chloride (0.9 % Sodium Chloride Flush 3 Ml Syringe) 3 ml IVFLUSH QSHIFT [facility] Last Admin: 11/26/22 08:00 Dose: 3 ml Documented By: CHARI Tiotropium [place] (Tiotropium [place] 2.5 Mcg Inhaler) 2 puff INHALE RDAILY [facility] Last Admin: 11/26/22 07:38 Dose: 2 puff Documented By: JAMIA Tramadol HCl (Tramadol Hcl 50 Mg Tablet) 25 mg PO Q8H PRN PRN Reason: Pain, Moderate(Pain Scale 4-6) Last Admin: 11/23/22 15:58 Dose: 25 mg Documented By: BEN Zinc Oxide (Zinc Oxide (Triple Paste) 56.7 Gm Oint) 1 appl TOPICAL 8XD PRN; Protocol PRN Reason: Diaper Rash Labs 11/24/22 10:33 11/23/22 09:12 Labs: Laboratory Results - last 24 hr 11/21/22 17:24 Ur Strep pneumoniae Ag Not Detected Assessment and Plan (1) Encephalopathy: Status: Acute (2) Pneumonia: Status: Acute Plan 72yo F with PAD, 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 Blood cultures x2 negative for 48 hours, PCT 0.06 , pneumococcal + Legionella UAgs pending, flu/RSV/Covid negative Now on Augmentin and doxycycline, day 3, total antibiotic day 08/29 ,cough medications,spirivia. WBC normalized, repeat chest x-ray showed bilateral multi lobar infiltrates slightly increased in left upper lobe and small bilateral pleural effusions unchanged Consulted pulmonology due to worsening infiltrate they agree with current antibiotics, and recommend chest PT with incentive spirometry and flutter valve for bronchopulmonary hygiene Sputum culture sensitivity, recommend out of bed to chair, follow clinical course. acute hypoxic resp failure - wean O2 as tolerated, not on home oxygen, now on 2 L of oxygen finger oximetry 96% encephalopathy due to infection - resolved with PNA treatment distended gallbladder on CT + chronic CBD dilation - no symptoms + LFTs normal, no further workup indicated stage 2 sacral decubitus ulcer -per Wound Care consult from prior admission: cleanse area with normal saline or sea wound cleanser. Apply zinc barrier cream to wound and cover with a foam border daily and PRN if dressing is soiled. Keep skin dry from incontinence hypovolemic hyperNa, mild- resolved HTN - continue lisinopril, few high blood pressure readings, will follow hypothyroidism- continue LT4 mood disorder- continue buspirone, duloxetine, risperidone chronic pain- continue duloxetine, gapabentin, methadone, tramadol hx PE/DVT- continue apixaban moderate protein-calorie malnutrition- continue supplements VTE ppx- apixaban dispo - eventual return to LTC In my clinical judgment, the patient requires continued inpatient hospitalization for the following reasons: hypoxia, worsening infiltrate. Time Spent With Patient Time: Total time managing care of this patient today ____ minutes. Quality Stroke Does the patient have a stroke diagnosis?: No VTE Prior VTE?: No VTE Risk Level:: Medical - moderate - high VTE Device Contraindication: Treatment Not Indicated VTE Drug Contraindication: N/A - Med Ordered
[2022-11-26 19:38] VITALS: BP 162/100; PULSE 83; RESP 15; TEMP 36.2; O2SAT 95
[2022-11-26] MEDS: Levothyroxine Sodium 50 MCG TABLET PO (20:33)
[2022-11-26 22:23] VITALS: BP 156/89; PULSE 70; RESP 18
--- NOTE | 2022-11-27 00:02 | PC.NURSE ---
Pt had an elevated BP start of our shift. MD verbally notified. pt was compliant with meds. Recheck BP was 156/89. NO signs of distress.
[2022-11-27] MEDS: Amoxicillin/Potassium Clav 875 MG TABLET PO ×2 (00:12→11:36)
[2022-11-27] MEDS: 0.9 % Sodium Chloride Flush 3 ML SYRINGE IVFLUSH ×2 (01:38→07:28)
[2022-11-27 04:00] VITALS: BP 169/91; PULSE 63; RESP 18; TEMP 36.2; O2SAT 98
[2022-11-27 07:00] VITALS: BP 170/90; PULSE 65; RESP 20; TEMP 36.5; O2SAT 96
[2022-11-27 07:07] VITALS: PULSE 65; RESP 20; O2SAT 96
[2022-11-27] MEDS: methADONE HCl 10 MG TABLET PO (07:27)
[2022-11-27] MEDS: busPIRone HCl 5 MG TABLET PO (07:27)
[2022-11-27] MEDS: Doxycycline Monohydrate 100 MG CAPSULE PO (07:27)
[2022-11-27] MEDS: risperiDONE 0.5 MG TABLET PO (07:27)
[2022-11-27] MEDS: DULoxetine HCl 60 MG CAPSULE.DR PO (07:27)
[2022-11-27] MEDS: Apixaban 5 MG TABLET PO (07:27)
[2022-11-27] MEDS: lisinopriL 5 MG TABLET PO (07:28)
[2022-11-27] MEDS: Gabapentin 300 MG CAPSULE PO (07:28)
--- NOTE | 2022-11-27 12:10 | MHC.CM.PN ---
Addendum entered by Chelsi Qiu RN 11/27/22 12:17: CORRECTION: IMM ADDRESS WITH HCP. HCP AWARE OF DC. Original Note: DP: PT HAS BEEN MEDICALLY CLEARED FOR DC. PLAN TO RETURN TO [facility]IA BLS WITH [facility] AT 2PM TODAY. IMM ADDRESSED. PT, RN, AND FACILITY AWARE.
--- NOTE | 2022-11-27 12:43 | PM.DS ---
DS: Providers Provider Date of Service: 11/27/22 Date of admission: 11/21/22 16:58 Primary care physician: Av Milan MD Consults: 11/25/22 08:38 Consult to Pulmonology Routine Consulting Provider: Flaco Bey Reason for consultation: hypoxia abnormal imaging Has provider been notified: No DS: Diagnosis Discharge Diagnosis (1) Encephalopathy: Status: Acute (2) Pneumonia: Status: Acute DS: Summary Hospital Course Hospital Course: History of presenting illness: Chief complaint: Decreased responsiveness, hypoxia Pt is a 72-year-old female with a PMH significant for?PAD, PE, DVT, HTN, hypothyroidism, chronic pain syndrome, chronic pressure ulcers, alcohol use disorder, and opioid dependence who presents to the ED from [facility] with decreased responsiveness and low oxygen saturation. Patient is a resident at [facility] and was recently admitted to the hospital on 11/16 through and treated for pneumonia, UTI, and encephalopathy. The patient was discharged on O2 2 L NC, cefuroxime 500 mg p.o. b.i.d. x5 days, and azithromycin 500 mg p.o. daily x5 days. Staff at [facility] report patient has been declining since returning from the hospital and has been requiring 4 L of O2 at all times. Patient was not previously on home O2 until last discharge from hospital. Patient herself is alert and oriented to person and time, not to place or situation. Patient states she feels ?confused? and is not capable of meaningful contribution to HPI, which is instead taken from chart and provider review. In the ED patient was afebrile, slightly hypertensive up to 151/88, and satting as low as 80% on RA. Labs were significant for leukocytosis of 11.2, sodium 146, potassium 3.2, BNP 261, creatinine 0.48. Lactic acid WNL at 0.9. Hepatic function baseline. Patient tested negative for influenza type a and B, RSV, COVID. VBG H with pH 7.45, bicarb 40. UA pending. CXR showed interval development of by basilar haziness likely pleural effusion and underlying atelectasis, with prominent bilateral parahilar markings likely infiltrate or vascular congestion new since last study on 11/18/2022. ?EKG demonstrated normal sinus rhythm with nonspecific T-wave inversions but no evidence of ST elevations or depressions. Pt was treated with ceftriaxone. Pt will be admitted to the hospital for treatment and further evaluation of acute hypoxic respiratory failure and encephalopathy in the setting healthcare associated pneumonia that failed outpatient therapy. 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, HTN, hypothyroidism, chronic pain, chronic pressure ulcers, AUD, OUD sent in from [facility] where she is a long-term care resident,s/p recent admission here 11/16-11/18/22 for encephalopathy/pneumonia, discharged on cefuroxime and azithromycin sent in for hypoxia and altered mental status CXR showed worsening bibasilar infiltrates with pleural effusions patient admitted to medical floor with a diagnosis of healthcare associated pneumonia and placed on IV vancomycin and Zosyn, blood cultures x2 negative , antibiotics transitioned to Augmentin and doxycycline recommend 3 more days of antibiotics, continue cough medication as needed patient evaluated by pulmonology, they recommend incentive spirometry and flutter valve for bronchopulmonary hygiene, acute hypoxic resp failure resolved oxygenation 95 96% on 1 L encephalopathy due to infection- resolved distended gallbladder on CT + chronic CBD dilation patient noted to have no symptoms with elevated LFTs no further workup indicated. stage 2 sacral decubitus ulcer seen by wound care they recommend to cleanse area with normal saline or sea wound cleanser. Apply zinc barrier cream to wound and cover with a foam border daily and PRN if dressing is soiled. Keep skin dry from incontinence, and frequent position change. Mild hypovolemic hypernatremia resolved HTN - continue lisinopril, dose increased to 10 mg daily due to high blood pressure readings recommend to follow BP closely . hypothyroidism- continue LT4 mood disorder- continue buspirone, duloxetine, and risperidone chronic pain- continue duloxetine, gapabentin, methadone,and prn tramadol. hx PE/DVT- continue apixaban moderate protein-calorie malnutrition- recommend protein supplements. Time Spent with Patient Time attestation: Total time managing care of this patient today ____ minutes. Discharge coordination time: Greater than 30 minutes Quality: Safe Use of Opioids Does Pt have an Active Cancer Diagnosis on the Problem List?: No Quality: Stroke Does the patient have a stroke diagnosis?: No Physical Exam Vital Signs: Vital Signs: Last Vital Signs Temp 97.7 F 11/27/22 07:00 Pulse 65 11/27/22 07:07 Resp 20 11/27/22 07:07 BP 170/90 H 11/27/22 07:00 Pulse Ox 96 11/27/22 07:00 O2 Del Method Nasal Cannula 11/27/22 07:00 O2 Flow Rate 2 11/27/22 07:00 Oxygen Flow Rate 4 11/21/22 11:26 BMI result Body Mass Index 19.5 Const: Other: Gen: in no acute distress, sitting comfortably on bed HEENT: sclera anicteric, moist mucus membranes Neck: supple Lungs: Bilateral coarse breath sound/rhonchi Heart: regular rate and rhythm, no murmurs Abd: soft, non-tender, non-distended Ext: no edema Skin: warm/well-perfused Neuro: alert and oriented x3, no focal findings Psych: appropriate affect DS: Data Data Completed and Pending Completed studies during hospitalization [Text1]: Procedures Assistance with Respiratory Ventilation, Less than 24 Consecutive Hours, Continuous Positive Airway Pressure (01/30/21) Excision of Right Foot Subcutaneous Tissue and Fascia, Open Approach (01/30/21) Discharge Plan Discharge Anticipated Discharge Date/Time: 11/27/22 11:09 Patient Disposition: er [facility] Discharge Diagnosis: Healthcare associated pneumonia Acute hypoxic respiratory failure Acute encephalopathy Stage II sacral pressure injury Referrals: [facility] [Outside] - 1 Day (intermediate manager care) Av Milan MD [Primary Care Provider] - 1 Week Discharge Medications: New dextromethorphan-guaifenesin 10-100 mg/5 mL Syrup 10 ml PO Q6H PRN (Reason: cough) Qty: 237 0RF doxycycline monohydrate 100 mg Capsule 100 mg PO Q12H Qty: 6 0RF lisinopril 10 mg Tablet 10 mg PO DAILY Qty: 30 0RF Protocol: Hold for SBP< HOLD for SBP < : 90 amoxicillin-pot clavulanate 875-125 mg Tablet 1 tab PO Q12H Qty: 6 0RF Triple Paste 12.8 % Ointment 1 appl topical 8XD PRN (Reason: Diaper Rash) Qty: 227 0RF Protocol: Apply to: Apply to: Sacral area Continued ondansetron HCl 4 mg Tablet 4 mg PO Q8H PRN (Reason: Nausea And Vomiting) buspirone 5 mg Tablet 5 mg PO TID methadone 10 mg Tablet 10 mg PO TID levothyroxine 50 mcg Tablet 50 mcg PO BEDTIME alum-mag hydroxide-simeth 200-200-20 mg/5 mL Suspension 30 ml PO Q4H PRN (Reason: GERD) albuterol sulfate 90 mcg/actuation Hfa Aerosol Inhaler 2 puff INHALATION Q4H PRN (Reason: copd) duloxetine 60 mg Capsule,Delayed Release(Dr/Ec) 60 mg PO DAILY apixaban 5 mg Tablet 5 mg PO BID acetaminophen 325 mg Tablet 650 mg PO Q6H PRN (Reason: Pain) polyethylene glycol 3350 [Miralax] 17 gram Powder In Packet 17 g PO DAILY magnesium hydroxide [Milk of Magnesia] 400 mg/5 mL Suspension 400 mg PO DAILY PRN (Reason: Constipation) bisacodyl 10 mg Suppository 10 mg [place] DAILY PRN (Reason: Constipation) gabapentin 300 mg Capsule 300 mg PO TID tiotropium bromide 2.5 mcg/actuation Mist 2 puff INHALATION DAILY Saccharomyces boulardii 1 mg PO BID tramadol 50 mg tablet 25 mg PO Q8H PRN (Reason: Pain) risperidone 0.5 mg tablet 0.5 mg PO BID Discontinued cefuroxime axetil 500 mg tablet 500 mg PO BID Qty: 10 0RF Rx Instructions: x 5 days, finish on 11/23/2022 azithromycin 500 mg tablet 500 mg PO DAILY 5 Days Qty: 5 0RF Rx Instructions: x 5 days, finish on 11/23/2022 lisinopril 2.5 mg tablet 5 mg PO DAILY Discharge Orders: Discharge Order (Routine); Ordered 11/27/22 Ordered By: Jed Aguilar Diet: Advance to usual diet Activity on Discharge: As tolerated Stand Alone Forms: Patient Portal Discharge page Care Plan Goals: stage II coccyx pressure ulcer recommend frequent position change, high-protein diet, apply zinc oxide, and cover with foam to keep area padded and protected change dressing every other day and as needed for soiling, keep skin dry from incontinent episodes reposition every 2 hours Right heel dry scab use heel offloading boots while in bed Take antibiotics for 3 more days as prescribed Wean oxygen Strongly recommend to use incentive spirometry, out of bed to chair Cough medication as needed Increased dose of lisinopril to 10 mg follow blood pressure closely Health Concerns: Continue all home medications as before Plan of Treatment: Follow-up with primary care physician Assessment: As above
[2022-11-28 03:38] LABS: Legionella Ag Urine Not Detected (Not Detected)
== END 2022-11-27 14:14 | disposition skilled nursing facility (03) | DRG 193 ==
LOC: HO.ED 15:17 → HO.EDOVER 17:06 → HO.S3 17:29 → HO.IMC 11-23 22:23
PROVIDERS: Family Medicine; Physician Assistant Medical; Admitting Provider Student in an Organized Health Care Education/Training Program; Emergency Provider Emergency Medicine Emergency Medical Services; PCP Family Medicine; Visit Provider Hospitalist
DX: J18.9 Pneumonia, unspecified organism (principal); G92.8 Other toxic encephalopathy; J96.01 Acute respiratory failure with hypoxia; E44.0 Moderate protein-calorie malnutrition; Z68.1 Body mass index [BMI] 19.9 or less, adult; E87.0 Hyperosmolality and hypernatremia; F11.20 Opioid dependence, uncomplicated; L89.152 Pressure ulcer of sacral region, stage 2; F10.20 Alcohol dependence, uncomplicated; F39 Unspecified mood [affective] disorder; E03.9 Hypothyroidism, unspecified; G89.4 Chronic pain syndrome; E86.1 Hypovolemia; I10 Essential (primary) hypertension; Z20.822 Contact with and (suspected) exposure to COVID-19; Z86.711 Personal history of pulmonary embolism; Z79.01 Long term (current) use of anticoagulants; Z79.890 Hormone replacement therapy; Z79.899 Other long term (current) drug therapy
CPT/HCPCS: 0241U; 36415; 71045; 71250; 80048; 80053; 81001; 82803; 82947; 83605; 83735; 83880; 84145; 84484; 85025; 85610; 85730; 87040; 87449; 87640; 87641; 87899; 93005; 99285; J0696; J2543; J3370; J3371

== ENCOUNTER → 2022-11-21 16:58 | Outpatient (BNV) | payer MEDICARE, MEDICAID, SELFPAY | PROVIDERS: Admitting Provider Student in an Organized Health Care Education/Training Program; Emergency Provider Emergency Medicine Emergency Medical Services; PCP Family Medicine; Visit Provider Student in an Organized Health Care Education/Training Program | DX: G93.40 Encephalopathy, unspecified (principal); J18.9 Pneumonia, unspecified organism | CPT/HCPCS: 99223; 99232; 99233; 99239 ==

== ENCOUNTER → 2022-11-21 16:58 | Outpatient (BNV) | payer MEDICARE, MEDICAID, SELFPAY | PROVIDERS: Admitting Provider Student in an Organized Health Care Education/Training Program; Emergency Provider Emergency Medicine Emergency Medical Services; PCP Family Medicine; Visit Provider Hospitalist | DX: J18.9 Pneumonia, unspecified organism (principal); J96.01 Acute respiratory failure with hypoxia | CPT/HCPCS: 99223 ==